=== PATIENT | female | born 1955 | race Caucasian/White ===

== ENCOUNTER 2023-01-18 02:02 | Emergency (ER) | payer MEDICARE, SELFPAY ==
[2023-01-18 02:07] VITALS: PULSE 89; RESP 16; TEMP 36.6; O2SAT 97
--- NOTE | 2023-01-18 02:35 | ED.ABDPAIN1 ---
HPI - Abdominal Pain General Chief Complaint: Abdominal Pain Stated Complaint: ABD BACK PAIN Time Seen by Provider: 01/18/23 02:35 Source: patient Mode of arrival: walk-in History of Present Illness HPI narrative: This 67-year-old female presents for evaluation of lower abdominal pain, urinary frequency with the sensation that she is not emptying her bladder, mild nausea and low back pain greatest on the left. She states she has not been feeling great for the past 2 days but her symptoms of lower abdominal pain urinary frequency and the sensation that she is not emptying her bladder started earlier today. She has also noticed some blood in her urine. She has not had a fever. She has not had any vomiting or diarrhea. She states she has a history of urinary tract infections and kidney stones. She also states that she is supposed to have a cardiac catheterization at [facility] in [place] in 2 weeks and if she has an infection needs to get it under control by then. She is not having any chest pain or shortness of breath today. She denies any dizziness diaphoresis or syncope. She states she does have a urologist that she sees but cannot recall the name of the urologist. Related Data Home Medications Medication Instructions Recorded Confirmed citalopram 20 mg tablet mg 01/18/23 isosorbide mononitrate 30 mg mg PO 01/18/23 tablet,extended release 24 hr lisinopril 40 mg tablet mg 01/18/23 omeprazole 40 mg capsule,delayed mg 01/18/23 release rosuvastatin 20 mg tablet mg 01/18/23 Allergies Allergy/AdvReac Type Severity Reaction Status Date / Time No Known Drug Allergies Allergy Verified 01/18/23 02:18 Review of Systems ROS Status of ROS 10 or more systems reviewed and unremarkable except as noted in history and below [facility] Social History Smoking status: Current every day smoker Exam Narrative Exam Narrative: Nurses note and vital signs reviewed and patient is not hypoxic. General: The patient appears well and in no apparent distress. Patient is resting comfortably on cart Rubbing her lower abdomen Skin: Warm, dry, no pallor noted. There is no rash noted. Head: Normocephalic, atraumatic Eye: Normal conjunctiva, no drainage, EOMI. PERRL Ears, Nose, Mouth, and Throat: oral mucosa is moist. Cardiovascular: Regular Rate and Rhythm Respiratory: Patient is in no distress, no accessory muscle use, lungs are clear to auscultation, no wheezing, rales or rhonchi Back: No midline bony vertebral tenderness or step-off, no CVA tenderness appreciated GI: Normal bowel sounds, Abdomen is softly distended and tender over the urinary bladder. There is no rebound guarding rigidity. There is no tenderness at McBurney's point. There is no pulsatile masses. Femoral pulses are brisk and equal bilaterally Musculoskeletal: The patient has no evidence of calf tenderness, no pitting edema, symmetrical pulses noted bilaterally Neurological: A&O x4, normal speech Psychiatric: Cooperative Constitutional Vital Signs, click to edit/add: Last Vital Signs Temp 98 F 01/18/23 02:07 Pulse 89 01/18/23 02:07 Resp 16 01/18/23 02:07 Pulse Ox 97 01/18/23 02:07 O2 Del Method Room Air 01/18/23 02:07 Course Vital Signs Vital signs: Vital Signs Temperature 98 F 01/18/23 02:07 Pulse Rate 89 01/18/23 02:07 Respiratory Rate 16 01/18/23 02:07 Pulse Oximetry 97 01/18/23 02:07 Oxygen Delivery Method Room Air 01/18/23 02:07 Temperature 98 F 01/18/23 02:07 Pulse Rate 89 01/18/23 02:07 Respiratory Rate 16 01/18/23 02:07 Pulse Oximetry 97 01/18/23 02:07 Oxygen Delivery Method Room Air 01/18/23 02:07 MDM - Abdominal Pain MDM Narrative Medical decision making narrative: This 67-year-old female with a history of urinary tract infections and kidney stones presents for evaluation of lower abdominal discomfort with urinary frequency and hematuria. She also has some low back pain. She denies any fever. She states she has not been feeling well for the past several days. She is scheduled to have a cardiac catheterization in 2 weeks and if she has an infection wants to get it treated so she can undergo her catheterization procedure. She denied any vomiting or diarrhea but states she was somewhat nauseated. She also complained of a mild headache. She had no chest pain or shortness of breath. An IV was placed and she was given IV Toradol Zofran and IV fluids. Routine labs were reviewed including urinalysis. Her urinalysis is positive for leukocyte esterase and moderate blood but otherwise normal. His mild elevation in her white count 11.3. She has normal hemoglobin. Electrolytes are normal Exception of a mild elevation in her glucose at 179. Lipase and lactic acid are normal. CT scan of the abdomen and pelvis shows multiple stones in her kidneys which may explain some degree of hematuria. There is no sign of hydronephrosis or ureteral nephrosis. She does have atherosclerosis of her aorta, hiatal hernia and other nonspecific changes as well as some bladder wall thickening concerning for cystitis. This is keeping with her symptoms of urinary frequency urgency and hematuria as well as leukocyte esterase in her urine prompted me to treat her for urinary tract infection. I gave her a dose of IV Rocephin and she will be discharged home with prescription for Keflex. She is otherwise feeling better after being treated in the emergency department and hemodynamically stable for discharge. Lab Data Labs: Lab Results 01/18/23 Range/Units 02:30 WBC 11.3 H (4.0-11.0) 10^3/uL RBC 4.38 (4.20-5.40) 10^6/uL Hgb 13.4 (12.0-16.0) g/dL Hct 39.5 (36.0-48.0) % MCV 90.2 (81.0-99.0) fL MCH 30.6 (26.7-34.0) pg MCHC 33.9 (29.9-35.2) g/dL RDW 12.1 (11.0-15.0) % Plt Count 268 (150-450) 10^3/uL MPV 9.2 L (9.5-13.5) fL Neut % (Auto) 61.6 (43.0-75.0) % Lymph % (Auto) 29.6 (20.5-60.0) % [place] % (Auto) 5.1 (1.7-12.0) % Eos % (Auto) 2.7 (0.9-7.0) % Baso % (Auto) 0.6 (0.2-2.0) % Neut # (Auto) 7.0 H (1.4-6.5) 10^3/uL Lymph # (Auto) 3.3 (1.2-3.8) 10^3/uL [place] # (Auto) 0.6 (0.3-0.8) 10^3/uL Eos # (Auto) 0.3 (0.0-0.7) 10^3/uL Baso # (Auto) 0.1 (0.0-0.1) 10^3/uL Abs Immat Gran (auto) 0.04 H (0.00-0.03) 10^3/uL Imm/Tot Granulo (auto) 0.4 (0.0-0.5) % Sodium 138 (136-145) mmol/L Potassium 3.4 L (3.5-5.1) mmol/L Chloride 102 (98-107) mmol/L Carbon Dioxide 27.2 (21.0-32.0) mmol/L Anion Gap 12.2 BUN 10.0 (7.0-18.0) mg/dL Creatinine 0.88 (0.55-1.02) mg/dL Est GFR ( Amer) >60 (>=60) Est GFR (Non-Af Amer) >60 (>=60) BUN/Creatinine Ratio 11.4 Glucose 179 H (74-106) mg/dL Lactate 2.0 (0.4-2.0) mmol/L Calcium 9.1 (8.5-10.1) mg/dL Total Bilirubin 0.3 (0.2-1.0) mg/dL AST 12 L (15-37) U/L ALT 12 L (14-59) U/L Alkaline Phosphatase 71 (46-116) U/L Total Protein 7.6 (6.4-8.2) g/dL Albumin 4.3 (3.4-5.0) g/dL Globulin 3.3 g/dL Albumin/Globulin Ratio 1.3 Lipase 134.0 (73.0-393.0) U/L Urine Color Lt. yellow (YELLOW) Urine Clarity Clear (CLEAR) Urine pH 6.0 (5.0-9.0) Ur Specific [place] 1.015 (1.005-1.025) Urine Protein Negative (NEG/TRACE) mg/dL Urine Glucose (UA) Negative (NEGATIVE) mg/dL Urine Ketones Negative (NEGATIVE) mg/dL Urine Occult Blood Moderate A (NEGATIVE) Urine Nitrite Negative (NEGATIVE) Urine Bilirubin Negative (NEGATIVE) Urine Urobilinogen 0.2 (0.2-1.0) EU/dL Ur Leukocyte Esterase Small A (NEGATIVE) Urine RBC 0-2 (0-2) #/HPF Urine WBC 0-2 A (NONE SEEN) #/HPF Ur Squamous Epith Cells Rare (NONE/RARE) #/LPF Urine Crystals None seen (None Seen) #/HPF Urine Bacteria None seen (NONE SEEN) #/HPF Urine Casts None seen (NONE SEEN) #/LPF Urine Mucus None seen (NONE SEEN) Ur Culture Indicated? No Discharge Plan Discharge Chief Complaint: Abdominal Pain Clinical Impression: Acute UTI, Bilateral kidney stones Time of Disposition Decision: 04:57 Condition: Good Prescriptions / Home Meds: No Action isosorbide mononitrate 30 mg tablet extended release 24 hr PO omeprazole 40 mg capsule,delayed release(DR/EC) citalopram 20 mg tablet lisinopril 40 mg tablet rosuvastatin 20 mg tablet Instructions: Kidney Stones (ED), Urinary Tract Infection in Women (ED) Stand Alone Forms: Portal Instructions Referrals: Physician,Non-Staff, MD [Primary Care Provider] - 1 week
--- NOTE | 2023-01-18 02:44 | CT_ITS ---
The [address] [address] Patient Name: SLY COY MRN: [id number] date: 1955 Sex: F Assigned Patient Location: ER Current Patient Location: ER Accession/Order Number: [id number] Exam Date: 01/18/2023 03:38 Report Date: 01/18/2023 04:33 At the request of: SLICK MARKER Procedure: CT abdomen pelvis w con CT abdomen and pelvis with contrast CLINICAL: kidney stone lower abdominal pain radiating into back, urinary urgency, retention, and burning with urination. COMPARISON: None. TECHNIQUE: Computed tomography of the abdomen and pelvis was performed following the uneventful administration of 100 cc Omnipaque 300 intravenous contrast. Dose reduction: mA and/or kV are adjusted by automated exposure control software based on patient size. FINDINGS: Limited imaging of lower chest demonstrates mild bibasilar atelectasis. There is a 5.4 cm hiatal hernia. Small amount of fluid within the stomach. Small bowel loops are normal caliber, few are fluid-filled. There is a moderate amount of colonic gas and small amount of stool in the colon. Few colonic diverticula noted. No acute diverticulitis or localized area of bowel inflammation. There is a normal appendix. Liver size and surface morphology are normal. The most superior margin of the liver dome excluded from view. No discrete liver lesion, with small area of focal fat along the falciform ligament. The gallbladder is contracted, normal in appearance. No biliary ductal dilatation. Normal pancreas and spleen. Adrenal glands are normal. Kidneys enhance symmetrically without perinephric stranding or hydronephrosis. There are small renal cysts bilaterally. A nonobstructing left upper pole renal stone measures 8 mm, and largest stone at the left kidney interpolar region measures 9 mm, and smaller stone at the lower pole at 5 mm. A nonobstructing stone at the lower pole right kidney is 7 mm. Bladder is moderately distended, minimal stranding along the bladder margin. No bladder stone or gas in the bladder lumen. Uterus surgically absent. No adnexal abnormality. There is severe atherosclerosis of the abdominal aorta and branch vessels. No abdominal aortic aneurysm. There are pelvic phleboliths. Hepatic veins and portal veins are patent. No abdominal pelvic lymphadenopathy. No free fluid, mesenteric inflation, abscess, or free air. There is grade 1 anterolisthesis of L5 on S1 due to bilateral L5 pars defects. Minimal endplate degenerative spurring in the visualized spine. There is a miniscule fat-containing umbilical hernia. CT/CT abdomen pelvis w con IMPRESSION: 1. Nonobstructing bilateral renal stones measuring up to 9 mm. Negative for hydronephrosis or perinephric stranding. Incidental renal cysts bilaterally. No suspicious renal lesion. 2. Minimal stranding along the anterior bladder margin that may be from cystitis. Correlate with urinalysis. No gas or stone in the bladder lumen. 3. Normal appendix, [id number] size hiatal hernia, and a few colonic diverticula. Negative for bowel obstruction or focal bowel inflammation. 4. Hysterectomy, severe abdominal aortic and branch vessel atherosclerosis, bilateral L5 pars defects with grade 1 anterolisthesis of L5 on S1, and additional incidental findings as described. Electronically authenticated by: RICHARD BALBUENA Date: 01/18/2023 04:33
[2023-01-18 02:54] LABS: Basophils Absolute Auto 0.1 10^3/uL (0.0-0.1); Basophils Percent Auto 0.6 % (0.2-2.0); Eosinophils Absolute Auto 0.3 10^3/uL (0.0-0.7); Eosinophils Percent Auto 2.7 % (0.9-7.0); Hematocrit 39.5 % (36.0-48.0); Hemoglobin 13.4 g/dL (12.0-16.0); Immature Granulocytes Abs Auto 0.04 10^3/uL (0.00-0.03); Immature Granulocytes Pct Auto 0.4 % (0.0-0.5); Lymphocytes Absolute Auto 3.3 10^3/uL (1.2-3.8); Lymphocytes Percent Auto 29.6 % (20.5-60.0); Mean Corpuscular HGB Conc 33.9 g/dL (29.9-35.2); Mean Corpuscular Hemoglobin 30.6 pg (26.7-34.0); Mean Corpuscular Volume 90.2 fL (81.0-99.0); Mean Platelet Volume 9.2 fL (9.5-13.5); Monocytes Absolute Auto 0.6 10^3/uL (0.3-0.8); Monocytes Percent Auto 5.1 % (1.7-12.0); Neutrophils Percent Auto 61.6 % (43.0-75.0); Platelet Count 268 10^3/uL (150-450); Red Blood Count 4.38 10^6/uL (4.20-5.40); Red Cell Distribution Width 12.1 % (11.0-15.0); White Blood Count 11.3 10^3/uL (4.0-11.0)
[2023-01-18 02:55] LABS: Bilirubin Urine NEGATIVE (NEGATIVE); Blood Urine MODERATE (NEGATIVE); Clarity Urine CLEAR (CLEAR); Color Urine LT. YELLOW (YELLOW); Glucose Urine UA NEGATIVE (NEGATIVE); Ketones Urine NEGATIVE (NEGATIVE); Leukocyte Esterase Urine SMALL (NEGATIVE); Nitrite Urine NEGATIVE (NEGATIVE); Protein Urine NEGATIVE (NEG/TRACE); Specific Gravity Urine 1.015 (1.005-1.025); Urobilinogen Urine 0.2 EU/dL (0.2-1.0)
[2023-01-18 02:56] LABS: Urine Microscopic Indicated YES
[2023-01-18 03:00] LABS: Alanine Aminotransferase 12 U/L (14-59); Albumin Globulin Ratio 1.3; Albumin Level 4.3 g/dL (3.4-5.0); Alkaline Phosphatase 71 U/L (46-116); Anion Gap 12.2; Aspartate Amino Transferase 12 U/L (15-37); BUN Creatinine Ratio 11.4; Bilirubin Total 0.3 mg/dL (0.2-1.0); Calcium 9.1 mg/dL (8.5-10.1); Carbon Dioxide 27.2 mmol/L (21.0-32.0); Chloride 102 mmol/L (98-107); Estimated GFR (African America >60 (>=60); Estimated GFR (Non-African Ame >60 (>=60); Globulin 3.3 g/dL; Glucose 179 mg/dL (74-106); Potassium 3.4 mmol/L (3.5-5.1); Sodium 138 mmol/L (136-145); Total Protein 7.6 g/dL (6.4-8.2)
[2023-01-18 03:02] LABS: Bacteria Urine NONE SEEN #/HPF (NONE SEEN); Cast Seen? NONE SEEN #/LPF (NONE SEEN); Crystals Seen? None Seen #/HPF (None Seen); Mucus Urine NONE SEEN (NONE SEEN); RBC Urine 0-2 #/HPF (0-2); Squamous Epithelial Cell Urine RARE #/LPF (NONE/RARE); Urine Culture Indicated NO; WBC Urine 0-2 #/HPF (NONE SEEN)
[2023-01-18] MEDS: KETOROLAC TROMETHAMINE 30 MG/ML VIAL 15 MG IVP (03:11)
[2023-01-18] MEDS: ONDANSETRON PF 4 MG/2 ML VIAL IV (03:11)
[2023-01-18] MEDS: 0.9 % SODIUM CHLORIDE 1,000 ML 100 ML IV (03:11)
[2023-01-18] MEDS: CEFTRIAXONE 1,000 MG in 0.9 % SODIUM CHLORIDE 50 ML 50 MG IV (04:57)
== END 2023-01-18 05:38 | disposition home or self-care (01) ==
PROVIDERS: Emergency Provider Emergency Medicine
DX: N39.0 Urinary tract infection, site not specified (principal); N20.0 Calculus of kidney; Z87.440 Personal history of urinary (tract) infections; Z87.442 Personal history of urinary calculi; F17.210 Nicotine dependence, cigarettes, uncomplicated; Z90.710 Acquired absence of both cervix and uterus
CPT/HCPCS: 36415; 74177; 80053; 81003; 81015; 83605; 83690; 85025; 96365; 96375; 99285; Q9967

== ENCOUNTER 2023-01-27 15:20 | Outpatient (OUT) | payer MEDICARE, SELFPAY ==
[2023-01-27 15:56] LABS: Basophils Absolute Auto 0.1 10^3/uL (0.0-0.1); Eosinophils Absolute Auto 0.3 10^3/uL (0.0-0.7); Eosinophils Percent Auto 2.6 % (0.9-7.0); Hematocrit 38.9 % (36.0-48.0); Hemoglobin 12.5 g/dL (12.0-16.0); Immature Granulocytes Abs Auto 0.04 10^3/uL (0.00-0.03); Immature Granulocytes Pct Auto 0.4 % (0.0-0.5); Lymphocytes Absolute Auto 3.4 10^3/uL (1.2-3.8); Lymphocytes Percent Auto 33.9 % (20.5-60.0); Mean Corpuscular HGB Conc 32.1 g/dL (29.9-35.2); Mean Corpuscular Hemoglobin 29.9 pg (26.7-34.0); Mean Corpuscular Volume 93.1 fL (81.0-99.0); Mean Platelet Volume 9.1 fL (9.5-13.5); Monocytes Absolute Auto 0.9 10^3/uL (0.3-0.8); Neutrophils Absolute Auto 5.3 10^3/uL (1.4-6.5); Neutrophils Percent Auto 53.1 % (43.0-75.0); Platelet Count 308 10^3/uL (150-450); Red Blood Count 4.18 10^6/uL (4.20-5.40); Red Cell Distribution Width 12.6 % (11.0-15.0); White Blood Count 9.9 10^3/uL (4.0-11.0)
[2023-01-27 16:14] LABS: Alanine Aminotransferase 19 U/L (14-59); Albumin Level 4.2 g/dL (3.4-5.0); Alkaline Phosphatase 59 U/L (46-116); Anion Gap 13.1; Aspartate Amino Transferase 13 U/L (15-37); BUN Creatinine Ratio 19.4; Bilirubin Total 0.6 mg/dL (0.2-1.0); Calcium 9.1 mg/dL (8.5-10.1); Carbon Dioxide 27.8 mmol/L (21.0-32.0); Chloride 103 mmol/L (98-107); Chol HDL Ratio 4.6; Cholesterol 215 mg/dL (<=200); Estimated GFR (African America >60 (>=60); Estimated GFR (Non-African Ame >60 (>=60); Glucose 97 mg/dL (74-106); HDL Cholesterol 47 mg/dL (40-60); Potassium 3.9 mmol/L (3.5-5.1); Sodium 140 mmol/L (136-145); Thyroid Stimulating Hormone 3.768 uIU/mL (0.358-3.740); Total Protein 8.2 g/dL (6.4-8.2); Triglycerides 173 mg/dL (<=150); VLDL CHOLESTEROL 34.6 mg/dL
[2023-01-27 16:38] LABS: Free T4 0.82 ng/dL (0.76-1.46)
== END 2023-01-27 15:21 | disposition home or self-care (01) ==
LOC: LAB 15:21
DX: E78.5 Hyperlipidemia, unspecified (principal); I10 Essential (primary) hypertension
CPT/HCPCS: 36415; 80053; 80061; 84439; 84443; 85025

== ENCOUNTER 2023-02-02 21:10 | Emergency (ER) | payer MEDICARE, SELFPAY ==
[2023-02-02 21:14] VITALS: BP 150/94; PULSE 88; RESP 16; TEMP 36.9; O2SAT 98; BMI 25.0
--- NOTE | 2023-02-02 21:24 | PC.NURSE ---
pt presents to ED because patient states she had a heart cath done on 01-23-2023, pt is currently taking plavix and aspirin daily. pt states for last 2 days has had swelling and pain to the back of right knee and calf. pt states she can feel a lump on the back of her leg. pt unsure if she pulled a muscle or has a blood clot.
--- NOTE | 2023-02-02 21:33 | ED.GENADUL1 ---
HPI - General Adult General Chief complaint: Extremity Injury, Lower Stated complaint: stent on 01-23-23 leg w/ lump Time Seen by Provider: 02/02/23 21:20 Source: patient Mode of arrival: walk-in History of Present Illness HPI narrative: This [age]-year-old female presents for evaluation of left posterior lower leg pain. The patient had a cardiac catheter and coronary stent placed on January 23. She is on Plavix and aspirin. She has a lot of bruising from the catheterization site on the right inguinal area and posterior leg. This bruising is better she states. She has been limping somewhat due to the discomfort in the right leg and yesterday felt some discomfort in the back of her left calf. She states she feels a lump in the back of her leg. The area that she feels the lump is the lower edge of the gastrocnemius muscle. There is no pain with ambulation. She has no chest pain or shortness of breath. She states that she thinks that she is compensating with the left leg because she has to walk up stairs and the right leg has been uncomfortable due to the bruising related to the cardiac catheter. She denies any numbness or tingling. She states she is going to [place] on a girls vacation next Monday and wants to make sure that everything is okay. Onset (ago): day(s) (1) Related Data Home Medications Medication Instructions Recorded Confirmed citalopram 20 mg tablet mg 01/18/23 isosorbide mononitrate 30 mg mg PO 01/18/23 tablet,extended release 24 hr lisinopril 40 mg tablet mg 01/18/23 omeprazole 40 mg capsule,delayed mg 01/18/23 release rosuvastatin 20 mg tablet mg 01/18/23 aspirin 81 mg tablet,delayed 81 mg PO DAILY 02/02/23 02/02/23 release (Adult Low Dose Aspirin) clopidogrel 75 mg tablet 75 mg PO DAILY 02/02/23 02/02/23 Allergies Allergy/AdvReac Type Severity Reaction Status Date / Time No Known Drug Allergies Allergy Verified 01/18/23 02:18 Review of Systems ROS Status of ROS 10 or more systems reviewed and unremarkable except as noted in history and below PFSH PFS Social History Smoking status: Current every day smoker Exam Narrative Exam Narrative: Nurses note and vital signs reviewed and patient is not hypoxic. Blood pressure is noted to be elevated at 150/94 General: Thin adult female, no distress noted Patient is resting comfortably on cart And moves easily about the cart to ambulate Skin: Warm, dry, no pallor noted. There is no rash noted. Head: Normocephalic, atraumatic Eye: Normal conjunctiva, no drainage, EOMI. PERRL Ears, Nose, Mouth, and Throat: oral mucosa is moist. Cardiovascular: Regular Rate and Rhythm S1 and S2, no murmurs rubs or gallops Respiratory: Patient is in no distress, no accessory muscle use, lungs are clear to auscultation, no wheezing, rales or rhonchi Back: non-tender, no CVA tenderness bilaterally to percussion. GI: Normal bowel sounds, no tenderness to palpation, no masses appreciated. No rebound, guarding, or rigidity noted. Musculoskeletal: Calf sizes are equal. There is no notable abnormality in the posterior aspect of the left lower leg, the area that the patient is concerned about appears to be the lower edge of the gastrocnemius muscle, negative Homans sign, dorsalis pedis and posterior tibialis pulses are brisk and equal bilaterally, there is a large amount of ecchymosis on the posterior aspect of the right lower leg and right inguinal area status post cardiac catheterization Neurological: A&O x4, normal speech Psychiatric: Cooperative Constitutional Vital Signs, click to edit/add: Last Vital Signs Temp 98.4 F 02/02/23 21:14 Pulse 88 02/02/23 21:14 Resp 16 02/02/23 21:14 BP 150/94 H 02/02/23 21:14 Pulse Ox 98 02/02/23 21:14 O2 Del Method Room Air 02/02/23 21:14 Course Vital Signs Vital signs: Vital Signs Temperature 98.4 F 02/02/23 21:14 Pulse Rate 88 02/02/23 21:14 Respiratory Rate 16 02/02/23 21:14 Blood Pressure 150/94 H 02/02/23 21:14 Pulse Oximetry 98 02/02/23 21:14 Oxygen Delivery Method Room Air 02/02/23 21:14 Temperature 98.4 F 02/02/23 21:14 Pulse Rate 88 02/02/23 21:14 Respiratory Rate 16 02/02/23 21:14 Blood Pressure 150/94 H 02/02/23 21:14 Pulse Oximetry 98 02/02/23 21:14 Oxygen Delivery Method Room Air 02/02/23 21:14 Medical Decision Making MDM Narrative Medical decision making narrative: This 67-year-old female who is on aspirin and Plavix and had a cardiac catheterization on January 23 and had one coronary stent placed at [facility] presents for evaluation of swelling in the back of her left leg that was noticed yesterday. She is compensating when she walks because she is having pain in the right leg due to the bruising In the right inguinal area and posterior aspect of the right leg associated with cardiac catheter. The area that she is concerned about the lower border of the gastrocnemius muscle. Her calf sizes are equal. She has a negative Homans sign. she was medicated with Tylenol emergency department. I did explain to her that we do not have ultrasound available at this time and she is set up for an ultrasound of the left lower extremity tomorrow at 11 AM. She is not experiencing any chest pain or shortness of breath and is on aspirin and Plavix. Clinically this is not consistent with a deep vein thrombosis but she will be further evaluated with a duplex ultrasound tomorrow. She is in agreement with this plan. Discharge Plan Discharge Chief Complaint: Extremity Injury, Lower Clinical Impression: Leg pain, left Time of Disposition Decision: 21:43 Condition: Good Prescriptions / Home Meds: No Action clopidogrel 75 mg tablet 75 mg PO DAILY aspirin [Adult Low Dose Aspirin] 81 mg tablet,delayed release (DR/EC) 81 mg PO DAILY isosorbide mononitrate 30 mg tablet extended release 24 hr PO omeprazole 40 mg capsule,delayed release(DR/EC) citalopram 20 mg tablet lisinopril 40 mg tablet rosuvastatin 20 mg tablet Instructions: Leg Pain (ED) Additional Instructions: Follow up tomorrow for left lower extremity ultrasound. Please come to registration around 10;30 am for your ultrasound at 11am Continue your current medications Stand Alone Forms: Portal Instructions Referrals: Physician,Non-Staff, MD [Primary Care Provider] - 1 week
[2023-02-02] MEDS: ACETAMINOPHEN 325 MG TABLET 650 MG PO (21:56)
== END 2023-02-02 21:59 | disposition home or self-care (01) ==
PROVIDERS: Emergency Provider Emergency Medicine
DX: M79.605 Pain in left leg (principal); Z95.5 Presence of coronary angioplasty implant and graft; Z79.02 Long term (current) use of antithrombotics/antiplatelets; Z79.899 Other long term (current) drug therapy; Z79.82 Long term (current) use of aspirin; F17.210 Nicotine dependence, cigarettes, uncomplicated
CPT/HCPCS: 99283

== ENCOUNTER 2023-02-03 10:38 | Outpatient (OUT) | payer MEDICARE, SELFPAY ==
--- NOTE | 2023-02-03 10:47 | US_ITS ---
The [place] [id number] Patient Name: SLY COY MRN: [id number] date: 1955 Sex: F Assigned Patient Location: [facility] Current Patient Location: [facility] Accession/Order Number: [id number] Exam Date: 02/03/2023 10:50 Report Date: 02/03/2023 12:31 At the request of: SLICK MARKER Procedure: US venous doppler LE LT EXAMINATION: US venous doppler LE LT HISTORY: Left Leg Pain COMPARISON: No relevant comparison available. FINDINGS: REGION: Left lower extremity THROMBI: None. COMPRESSIBILITY: Normal compressibility. FLOW: Normal waveform and antegrade flow between 5 and 20 cm/s. OTHER: None. US/US venous doppler LE LT IMPRESSION: 1. No deep vein thrombus within the left lower extremity. Electronically authenticated by: KATHERINE LITTLE Date: 02/03/2023 12:31
== END 2023-02-03 10:39 | disposition home or self-care (01) ==
LOC: RAD 10:41
PROVIDERS: Visit Provider Emergency Medicine
DX: M79.604 Pain in right leg (principal)
CPT/HCPCS: 93971

== ENCOUNTER 2023-03-18 11:10 | Outpatient (OUT) | payer MEDICARE, SELFPAY ==
--- NOTE | 2023-03-18 | XR_ITS ---
The [address] [address] Patient Name: SLY COY MRN: [id number] date: 1955 Sex: F Assigned Patient Location: RAD Current Patient Location: [facility] Accession/Order Number: [id number] Exam Date: 03/18/2023 11:20 Report Date: 03/18/2023 16:26 At the request of: LIYAH DENNY Procedure: XR abdomen 1V EXAMINATION: XR abdomen 1V, [id number] HISTORY: n20.0 Kidney stone COMPARISON: CT abdomen/pelvis 01/18/2023 FINDINGS/IMPRESSION: The 3 clusters of calcification calcification projecting over the left kidney and the single cluster of calcifications projecting over the right kidney are similar in size and location compared with 01/18/2023. No new calcification projecting over either kidney or along the expected courses of the ureters. Nonobstructive bowel gas pattern. Stool burden is average. Electronically authenticated by: MAYELA SELBY Date: 03/18/2023 16:26
== END 2023-03-18 11:11 | disposition home or self-care (01) ==
LOC: RAD 11:11
PROVIDERS: Visit Provider Urology
DX: N20.0 Calculus of kidney (principal)
CPT/HCPCS: 74018

== ENCOUNTER 2023-03-27 12:57 | Emergency (ER) | payer MEDICARE, SELFPAY ==
[2023-03-27 13:05] VITALS: BP 112/70; PULSE 65; RESP 18; TEMP 36.6; O2SAT 99
--- NOTE | 2023-03-27 14:00 | ED_ITS ---
HPI - Female Genitourinary General Chief complaint: Urogenital-Female Stated complaint: UTI Time Seen by Provider: 03/27/23 13:53 Source: patient Mode of arrival: walk-in Limitations: no limitations History of Present Illness HPI Narrative: 67-year-old female presents for frequency of urination and blood in her urine. She also has low abdominal pain and low back pain. She does not seem to have flank pain. She has a history of kidney stones. No fever or vomiting and the pain is moderate and intermittent. Related Data Home Medications Medication Instructions Recorded Confirmed citalopram 20 mg tablet mg 01/18/23 isosorbide mononitrate 30 mg mg PO 01/18/23 tablet,extended release 24 hr lisinopril 40 mg tablet mg 01/18/23 omeprazole 40 mg capsule,delayed mg 01/18/23 release rosuvastatin 20 mg tablet mg 01/18/23 aspirin 81 mg tablet,delayed 81 mg PO DAILY 02/02/23 02/02/23 release (Adult Low Dose Aspirin) clopidogrel 75 mg tablet 75 mg PO DAILY 02/02/23 02/02/23 Previous Rx's Medication Instructions Recorded cephalexin 500 mg capsule 500 mg PO TID 7 days #21 caps 03/27/23 Allergies Allergy/AdvReac Type Severity Reaction Status Date / Time No Known Drug Allergies Allergy Verified 01/18/23 02:18 Review of Systems ROS Narrative A ten point review of systems is negative except as noted above. [facility] Medical History (Updated 03/27/23 @ 16:09 by Russell Gambino MD) Surgical History (Updated 03/27/23 @ 13:52 by Ranjit Jade) Social History Smoking status: Current every day smoker Exam Narrative Exam Narrative: Nurses note and vital signs reviewed and patient is not hypoxic. General: The patient appears well and in no apparent distress. Patient is resting comfortably on cart. Skin: Warm, dry, no pallor noted. There is no rash noted. Head: Normocephalic, atraumatic Eye: Normal conjunctiva, no drainage Ears, Nose, Mouth, and Throat: oral mucosa is moist. Nares patent. Cardiovascular: Regular Rate and Rhythm Respiratory: Patient is in no distress, no accessory muscle use, lungs are clear to auscultation, no wheezing, rales or rhonchi Back: non-tender, no CVA tenderness bilaterally to percussion. GI: soft. Nondistended. Bilateral lower abdominal tenderness on palpation. Musculoskeletal: The patient has no evidence of calf tenderness, no pitting edema, symmetrical pulses noted bilaterally Neurological: A&O, normal speech Psychiatric: Cooperative Constitutional Vital Signs, click to edit/add: Last Vital Signs Temp 97.8 F 03/27/23 13:05 Pulse 65 03/27/23 13:05 Resp 18 03/27/23 13:05 BP 112/70 03/27/23 13:05 Pulse Ox 99 03/27/23 13:05 O2 Del Method Room Air 03/27/23 13:05 Course Vital Signs Vital signs: Vital Signs Temperature 97.8 F 03/27/23 13:05 Pulse Rate 65 03/27/23 13:05 Respiratory Rate 18 03/27/23 13:05 Blood Pressure 112/70 03/27/23 13:05 Pulse Oximetry 99 03/27/23 13:05 Oxygen Delivery Method Room Air 03/27/23 13:05 Temperature 97.8 F 03/27/23 13:05 Pulse Rate 65 03/27/23 13:05 Respiratory Rate 18 03/27/23 13:05 Blood Pressure 112/70 03/27/23 13:05 Pulse Oximetry 99 03/27/23 13:05 Oxygen Delivery Method Room Air 03/27/23 13:05 MDM - Female Genitourinary MDM Narrative Medical decision making narrative: CT shows small intrarenal stones but no obstruction or stones that are in the ureter. Urinary tract infection identified and she's prescribed Keflex. Treatment diagnosis and follow-up were discussed with the patient. Differential Diagnosis Differential diagnosis: Likely urinary tract infection, cystitis and other (kidney stone) Lab Data Attestation: I reviewed the patient's lab results. Labs: Lab Results 03/27/23 03/27/23 Range/Units 13:54 14:16 WBC 7.6 (4.0-11.0) 10^3/uL RBC 4.30 (4.20-5.40) 10^6/uL Hgb 12.9 (12.0-16.0) g/dL Hct 40.5 (36.0-48.0) % MCV 94.2 (81.0-99.0) fL MCH 30.0 (26.7-34.0) pg MCHC 31.9 (29.9-35.2) g/dL RDW 11.9 (11.0-15.0) % Plt Count 255 (150-450) 10^3/uL MPV 8.9 L (9.5-13.5) fL Neut % (Auto) 51.5 (43.0-75.0) % Lymph % (Auto) 35.7 (20.5-60.0) % [place] % (Auto) 7.5 (1.7-12.0) % Eos % (Auto) 4.0 (0.9-7.0) % Baso % (Auto) 1.2 (0.2-2.0) % Neut # (Auto) 3.9 (1.4-6.5) 10^3/uL Lymph # (Auto) 2.7 (1.2-3.8) 10^3/uL [place] # (Auto) 0.6 (0.3-0.8) 10^3/uL Eos # (Auto) 0.3 (0.0-0.7) 10^3/uL Baso # (Auto) 0.1 (0.0-0.1) 10^3/uL Abs Immat Gran (auto) 0.01 (0.00-0.03) 10^3/uL Imm/Tot Granulo (auto) 0.1 (0.0-0.5) % Sodium 140 (136-145) mmol/L Potassium 4.5 (3.5-5.1) mmol/L Chloride 104 (98-107) mmol/L Carbon Dioxide 28.5 (21.0-32.0) mmol/L Anion Gap 12.0 BUN 11.0 (7.0-18.0) mg/dL Creatinine 0.66 (0.55-1.02) mg/dL Est GFR ( Amer) >60 (>=60) Est GFR (Non-Af Amer) >60 (>=60) BUN/Creatinine Ratio 16.7 Glucose 91 (74-106) mg/dL Calcium 8.9 (8.5-10.1) mg/dL Urine Color Dk. orange (YELLOW) Urine Clarity Clear (CLEAR) Urine pH 5.5 (5.0-9.0) Ur Specific [place] 1.025 (1.005-1.025) Urine Protein Trace (NEG/TRACE) mg/dL Urine Glucose (UA) Negative (NEGATIVE) mg/dL Urine Ketones Negative (NEGATIVE) mg/dL Urine Occult Blood Moderate A (NEGATIVE) Urine Nitrite Positive A (NEGATIVE) Urine Bilirubin Negative (NEGATIVE) Urine Urobilinogen 1.0 (0.2-1.0) EU/dL Ur Leukocyte Esterase Negative (NEGATIVE) Urine RBC 2-5 A (0-2) #/HPF Urine WBC None seen (NONE SEEN) #/HPF Ur Squamous Epith Cells Rare (NONE/RARE) #/LPF Urine Crystals None seen (None Seen) #/HPF Urine Bacteria Trace A (NONE SEEN) #/HPF Urine Casts None seen (NONE SEEN) #/LPF Urine Mucus None seen (NONE SEEN) Ur Culture Indicated? Yes Imaging Data CT scan - abdomen: Radiologist's impression: Procedure: CT abdomen pelvis wo con EXAM: CT abdomen pelvis wo con; [id number] REASON FOR EXAM: pain, rule out kidney stone TECHNIQUE: Helical CT images of the abdomen and pelvis were obtained without IV contrast. Multiplanar reformats were generated at the scanner. Dose reduction technique used: Automated exposure control and/or adjustment of the mA and/or kV according to patient size and/or use of iterative reconstruction technique. COMPARISON: CT abdomen/pelvis 01/18/2023. FINDINGS: Note: Compared with a contrast-enhanced CT exam, noncontrast images are relatively insensitive for detection of solid organ and vascular abnormalities. Visualized Chest: Medium-sized hiatal hernia containing approximately 25% of the stomach. Abdomen: Liver: Within normal limits. Gallbladder: No calcified gallstones. No acute inflammatory changes. Bile Ducts: No significant biliary ductal dilatation. Pancreas: No ductal dilatation or inflammatory changes. Spleen: No splenomegaly. Adrenals: No nodules. Kidneys: -No hydronephrosis. -Low-density cyst in the upper pole of the right kidney measuring 18 mm. -Single nonobstructing 6 mm stone in the right kidney. -There are 3 nonobstructing stones in the left kidney with the largest measuring up to 9 mm. -Exophytic cyst in the lower pole of the left kidney measuring 14 mm. Vascular: No aortic aneurysm. Lymph Nodes: No adenopathy. Abdominal Wall: No hernia or mass. Pelvis: No mass or adenopathy. Bowel/Peritoneal Cavity/Mesentery: -Minimal colonic diverticulosis without evidence of acute diverticulitis. -No bowel obstruction or significant ileus. -No acute inflammatory changes. -No free air or free fluid. Musculoskeletal: No acute fracture or suspicious osseous lesion. Bilateral L5 pars defects resulting in grade 1 (0-25%) anterolisthesis of L5 on S1. IMPRESSION: 1. Bilateral nonobstructing kidney stones. No hydronephrosis. 2. Minimal colonic diverticulosis without evidence of acute diverticulitis. 3. Medium-sized hiatal hernia. 4. Bilateral L5 pars defects. Electronically authenticated by: MAYELA SELBY Date: 03/27/2023 15:41 Discharge Plan Discharge Chief Complaint: Urogenital-Female Clinical Impression: Acute UTI Patient Disposition: Home, Self-Care Time of Disposition Decision: 16:07 Condition: Good Mode of Transportation: Private Vehicle Prescriptions / Home Meds: New cephalexin 500 mg capsule 500 mg PO TID 7 Days Qty: 21 0RF No Action clopidogrel 75 mg tablet 75 mg PO DAILY aspirin [Adult Low Dose Aspirin] 81 mg tablet,delayed release (DR/EC) 81 mg PO DAILY isosorbide mononitrate 30 mg tablet extended release 24 hr PO omeprazole 40 mg capsule,delayed release(DR/EC) citalopram 20 mg tablet lisinopril 40 mg tablet rosuvastatin 20 mg tablet Instructions: Urinary Tract Infection in Women (ED) Stand Alone Forms: Portal Instructions Referrals: Physician,Non-Staff, MD [Primary Care Provider] - 1 week
[2023-03-27 14:10] LABS: Bilirubin Urine NEGATIVE (NEGATIVE); Blood Urine MODERATE (NEGATIVE); Clarity Urine CLEAR (CLEAR); Color Urine DK. ORANGE (YELLOW); Glucose Urine UA NEGATIVE (NEGATIVE); Ketones Urine NEGATIVE (NEGATIVE); Leukocyte Esterase Urine NEGATIVE (NEGATIVE); Nitrite Urine POSITIVE (NEGATIVE); Protein Urine TRACE mg/dL (NEG/TRACE); Specific Gravity Urine 1.025 (1.005-1.025); pH Urine 5.5 (5.0-9.0)
[2023-03-27 14:12] LABS: Urine Microscopic Indicated YES
[2023-03-27 14:18] LABS: Bacteria Urine TRACE #/HPF (NONE SEEN); Cast Seen? NONE SEEN #/LPF (NONE SEEN); Crystals Seen? None Seen #/HPF (None Seen); Mucus Urine NONE SEEN (NONE SEEN); Squamous Epithelial Cell Urine RARE #/LPF (NONE/RARE); Urine Culture Indicated YES; WBC Urine NONE SEEN #/HPF (NONE SEEN)
[2023-03-27 14:31] LABS: Basophils Absolute Auto 0.1 10^3/uL (0.0-0.1); Basophils Percent Auto 1.2 % (0.2-2.0); Eosinophils Absolute Auto 0.3 10^3/uL (0.0-0.7); Hematocrit 40.5 % (36.0-48.0); Hemoglobin 12.9 g/dL (12.0-16.0); Immature Granulocytes Abs Auto 0.01 10^3/uL (0.00-0.03); Immature Granulocytes Pct Auto 0.1 % (0.0-0.5); Lymphocytes Absolute Auto 2.7 10^3/uL (1.2-3.8); Lymphocytes Percent Auto 35.7 % (20.5-60.0); Mean Corpuscular HGB Conc 31.9 g/dL (29.9-35.2); Mean Corpuscular Volume 94.2 fL (81.0-99.0); Mean Platelet Volume 8.9 fL (9.5-13.5); Monocytes Absolute Auto 0.6 10^3/uL (0.3-0.8); Monocytes Percent Auto 7.5 % (1.7-12.0); Neutrophils Absolute Auto 3.9 10^3/uL (1.4-6.5); Neutrophils Percent Auto 51.5 % (43.0-75.0); Platelet Count 255 10^3/uL (150-450); Red Cell Distribution Width 11.9 % (11.0-15.0); White Blood Count 7.6 10^3/uL (4.0-11.0)
[2023-03-27 14:37] LABS: BUN Creatinine Ratio 16.7; Calcium 8.9 mg/dL (8.5-10.1); Carbon Dioxide 28.5 mmol/L (21.0-32.0); Chloride 104 mmol/L (98-107); Estimated GFR (African America >60 (>=60); Estimated GFR (Non-African Ame >60 (>=60); Glucose 91 mg/dL (74-106); Potassium 4.5 mmol/L (3.5-5.1); Sodium 140 mmol/L (136-145)
--- NOTE | 2023-03-27 14:54 | CT_ITS ---
[address] [address] Patient Name: SLY COY MRN: [id number] date: 1955 Sex: F Assigned Patient Location: ER Current Patient Location: Accession/Order Number: [id number] Exam Date: 03/27/2023 15:00 Report Date: 03/27/2023 15:41 At the request of: CARLO MCDONALD Procedure: CT abdomen pelvis wo con EXAM: CT abdomen pelvis wo con; [id number] REASON FOR EXAM: pain, rule out kidney stone TECHNIQUE: Helical CT images of the abdomen and pelvis were obtained without IV contrast. Multiplanar reformats were generated at the scanner. Dose reduction technique used: Automated exposure control and/or adjustment of the mA and/or kV according to patient size and/or use of iterative reconstruction technique. COMPARISON: CT abdomen/pelvis 01/18/2023. FINDINGS: Note: Compared with a contrast-enhanced CT exam, noncontrast images are relatively insensitive for detection of solid organ and vascular abnormalities. Visualized Chest: Medium-sized hiatal hernia containing approximately 25% of the stomach. Abdomen: Liver: Within normal limits. Gallbladder: No calcified gallstones. No acute inflammatory changes. Bile Ducts: No significant biliary ductal dilatation. Pancreas: No ductal dilatation or inflammatory changes. Spleen: No splenomegaly. Adrenals: No nodules. Kidneys: -No hydronephrosis. -Low-density cyst in the upper pole of the right kidney measuring 18 mm. -Single nonobstructing 6 mm stone in the right kidney. -There are 3 nonobstructing stones in the left kidney with the largest measuring up to 9 mm. -Exophytic cyst in the lower pole of the left kidney measuring 14 mm. Vascular: No aortic aneurysm. Lymph Nodes: No adenopathy. Abdominal Wall: No hernia or mass. Pelvis: No mass or adenopathy. Bowel/Peritoneal Cavity/Mesentery: -Minimal colonic diverticulosis without evidence of acute diverticulitis. -No bowel obstruction or significant ileus. -No acute inflammatory changes. -No free air or free fluid. Musculoskeletal: No acute fracture or suspicious osseous lesion. Bilateral L5 pars defects resulting in grade 1 (0-25%) anterolisthesis of L5 on S1. CT/CT abdomen pelvis wo con IMPRESSION: 1. Bilateral nonobstructing kidney stones. No hydronephrosis. 2. Minimal colonic diverticulosis without evidence of acute diverticulitis. 3. Medium-sized hiatal hernia. 4. Bilateral L5 pars defects. Electronically authenticated by: MAYELA SELBY Date: 03/27/2023 15:41
[2023-03-27 16:21] VITALS: BP 120/70; PULSE 60; RESP 18; O2SAT 99
== END 2023-03-27 16:23 | disposition home or self-care (01) ==
PROVIDERS: Emergency Provider Emergency Medicine
DX: N39.0 Urinary tract infection, site not specified (principal); Z87.442 Personal history of urinary calculi; Z79.899 Other long term (current) drug therapy; Z79.82 Long term (current) use of aspirin; F17.210 Nicotine dependence, cigarettes, uncomplicated
CPT/HCPCS: 36415; 74176; 80048; 81001; 85025; 87086; 99285

== ENCOUNTER 2023-04-11 15:00 | Outpatient (OUT) | payer MEDICARE, SELFPAY ==
--- NOTE | 2023-04-11 | XR_ITS ---
[place] [id number] Patient Name: SLY COY MRN: [id number] date: 1955 Sex: F Assigned Patient Location: [facility] Current Patient Location: [facility] Accession/Order Number: [id number] Exam Date: 04/11/2023 15:10 Report Date: 04/11/2023 18:55 At the request of: NADIRA SUBRAMANIAN Procedure: XR DEXA axial skeleton EXAM: XR DEXA axial skeleton HISTORY: Post-menopausal Z78.0 COMPARISON: None. TECHNIQUE: Routine DEXA scan lumbar spine and bilateral hips. FINDINGS: L1-L4: Bone mineral density 0.956 g/sq cm with a T score of -1.9 Left femoral neck: Bone mineral density 0.728 g/sq cm with a T score of -2.2 Left hip total: Bone mineral density 0.741 g/sq cm with a T score of -2.1 Right femoral neck: Bone mild density 0.705 g/sq cm with a T score of -2.4 Right hip total: Bone mineral density 0.774 g/sq cm with a T score of -1.9 XR/XR DEXA axial skeleton IMPRESSION: Osteopenia. Electronically authenticated by: ERIKA ANDUJAR Date: 04/11/2023 18:55
== END 2023-04-11 15:01 | disposition home or self-care (01) ==
LOC: RAD 15:01
DX: Z78.0 Asymptomatic menopausal state (principal); M85.80 Other specified disorders of bone density and structure, unspecified site
CPT/HCPCS: 77080

== ENCOUNTER 2023-05-17 14:35 | Outpatient (OUT) | payer MEDICARE, SELFPAY ==
--- NOTE | 2023-05-17 14:37 | XR_ITS ---
[address] [address] Patient Name: SLY COY MRN: [id number] date: 1955 Sex: F Assigned Patient Location: [facility] Current Patient Location: [facility] Accession/Order Number: [id number] Exam Date: 05/17/2023 15:40 Report Date: 05/17/2023 16:41 At the request of: LIYAH DENNY Procedure: XR chest 2V EXAM: CHEST 2 VIEWS HISTORY: Preop exam TECHNIQUE: PA and lateral views chest. COMPARISON: None. FINDINGS: The lungs are mildly hyperinflated and clear. There is no focal lung consolidation, pleural effusion or pneumothorax. Pulmonary vasculature is within normal limits. Atherosclerotic thoracic aorta with normal heart size. Coronary artery stent is seen. XR/XR chest 2V IMPRESSION: 1. No acute cardiopulmonary disease. Electronically authenticated by: RICHARD BALBUENA Date: 05/17/2023 16:41
--- NOTE | 2023-05-17 14:37 | ECG_ITS ---
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
[2023-05-17 15:44] LABS: Basophils Absolute Auto 0.1 10^3/uL (0.0-0.1); Eosinophils Absolute Auto 0.3 10^3/uL (0.0-0.7); Eosinophils Percent Auto 3.5 % (0.9-7.0); Hematocrit 39.3 % (36.0-48.0); Hemoglobin 12.9 g/dL (12.0-16.0); Immature Granulocytes Abs Auto 0.01 10^3/uL (0.00-0.03); Immature Granulocytes Pct Auto 0.1 % (0.0-0.5); Lymphocytes Absolute Auto 2.8 10^3/uL (1.2-3.8); Lymphocytes Percent Auto 36.9 % (20.5-60.0); Mean Corpuscular HGB Conc 32.8 g/dL (29.9-35.2); Mean Corpuscular Hemoglobin 30.3 pg (26.7-34.0); Mean Corpuscular Volume 92.3 fL (81.0-99.0); Monocytes Absolute Auto 0.6 10^3/uL (0.3-0.8); Monocytes Percent Auto 7.9 % (1.7-12.0); Neutrophils Absolute Auto 3.9 10^3/uL (1.4-6.5); Neutrophils Percent Auto 50.6 % (43.0-75.0); Platelet Count 268 10^3/uL (150-450); Red Blood Count 4.26 10^6/uL (4.20-5.40); Red Cell Distribution Width 12.1 % (11.0-15.0); White Blood Count 7.7 10^3/uL (4.0-11.0)
[2023-05-17 15:58] LABS: Anion Gap 12.2; BUN Creatinine Ratio 31.4; Calcium 8.9 mg/dL (8.5-10.1); Carbon Dioxide 28.8 mmol/L (21.0-32.0); Chloride 103 mmol/L (98-107); Estimated GFR (African America >60 (>=60); Estimated GFR (Non-African Ame >60 (>=60); Glucose 112 mg/dL (74-106); Sodium 140 mmol/L (136-145)
[2023-05-17 17:17] LABS: INR 0.96; Prothrombin Time 10.2 sec (9.0-11.6)
--- OUTSIDE RECORDS SUMMARY | 2023-06-27 15:50 | XMS_ITS | CCD ---
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 Name Role Phone Nadira Modi APRN, CNP Primary Care Provider JUVENAL HARRELL Referring Unavailable NADIRA MARTÍNEZ Primary Care Unavailable [facility] Primary Care Unava ilable MIKHAIL GRANT Consulting Unavailable MIKHAIL GRANT Admitting Unavailable MIKHAIL GRANT Attending Unavailable NADIRA MARTÍNEZ Admitting Unavailable NADIRA MARTÍNEZ Attending Unavailable [facility] Primary Care Unava ilable MARILYNN, NADIRA Consulting Unavailable Himanshu Borjas Unavailable Fernando Castellon Attending Unavailable Fernando Castellon Admitting Unavailable Nadira Martínez Primary Care Unavailable JAYA SIMON Admitting Unavailable JAYA SIMON Attending Unavailable JAYA SIMON Referring Unavailable NADIRA MARTÍNEZ Primary Care Unavailable NADIRA MARTÍNEZ Primary Care Physician Elizabeth Lott Attending Unavailable NADIRA MARTÍNEZ Referring Unavailable Elizabeth Lott Attending Unavailable Allergies Allergy Classification Reported Allergen(s) Allergy Type Date of Onset Reaction(s) Facility (1 source) No Known Medication Allergies; Translations: [No Known Medication Allergies] Propensity to adverse reactions (disorder) [facility] Repository Medications Current Medications Medication Drug Class(es) Dates Sig (Normalized) Sig (Original) ALPRAZolam (1 source) Benzodiazepine Start: 05-10-2023 alprazolam Oral, Refills(s) 0 Start Date: 05/10/23 Status: Ordered aspirin 81 mg oral capsule (1 source) Platelet Aggregation Inhibitor, Nonsteroidal Anti-inflammatory Drug Start: 05-10-2023 take 1 mg by mouth every twenty-four hours aspirin 81 mg oral capsule mg cap(s), Oral, q24hr, Refills(s) 0 Start Date: 05/10/23 Status: Ordered citalopram 20 mg oral tablet (3 sources) Serotonin Reuptake Inhibitor Start: 05-10-2023 take 1 mg by mouth once daily citalopram 20 mg Tab mg tab(s), Oral, Daily, Refills(s) 0 Start Date: 05/10/23 Status: Ordered take 1 tablet by mouth once queta y Citalopram Hydrobromide 20 MG TAKE ONE TABLET BY MOUTH DAILY Oral for 90 Days Active clopidogrel 75 mg oral tablet (2 sources) P2Y12 Platelet Inhibitor Start: 05-10-2023 take 1 mg by mouth once daily Plavix 75 mg Tab mg tab(s), Oral, Daily, Refills(s) 0 Start Date: 05/10/23 Status: Ordered Plavix Active estradiol 0.1 mg/ml vaginal cream (1 source) Estrogen Start: 05-10-2023 Estrace 0.1 mg /g Cream See Instructions, 42.5 gm, Refill(s) 3, apply pea size amount to urethra/inner vagina 3x/week x 1 month, then 2x/week for maintainence, [facility], 152.4, cm, 05/10/23 9:55:00 EDT, Height/Length Dosing, 57.6, kg, 05/10/23 9:55:00 EDT, Weight Dosing Start Date: 05/10/23 Status: Ordered lisinopril 40 mg oral tablet (3 sources) Angiotensin Converting Enzyme Inhibitor Start: 05-10-2023 take 1 mg by mouth once daily lisinopril 40 mg Tab mg tab(s), Oral, Daily, Refills(s) 0 Start Date: 05/10/23 Status: Ordered take 1 tablet by mouth once queta y Lisinopril 40 MG TAKE ONE TABLET BY MOUTH DAILY Oral for 90 Days Active omeprazole 20 mg delayed release oral capsule (2 sources) Proton Pump Inhibitor take 1 capsule by mouth twice daily Omeprazole 20 MG 1 capsule 30 minutes before morning meal Orally BID Active rosuvastatin calcium 20 mg oral tablet (3 sources) HMG-CoA Reductase Inhibitor Start: take 1 mg by mouth once daily rosuvastatin 20 mg Tab mg tab(s), Oral, Daily, Refills(s) 0 Start Date: 05/10/23 Status: Ordered Rosuvastatin [place]iles cium 20 MG Oral for 90 Days Active Problems Problem Classification Problem Date Documented Da te Episodic/Chronic Abdominal hernia (1 source) Diaphragmatic hernia without obstruction or gangrene Episodic Calculus of urinary tract (5 sources) Personal history of urinary calculi; Translations: [History of calculus of kidney] Onset: 3 Episodic Conditions associated with dizziness or vertigo (2 sources) Dizziness; Translations: [Dizziness and giddiness] Onset: 2 Episodic Coronary atherosclerosis and other heart disease (1 source) Coronary arteriosclerosis 05-10-2023 Chronic Disorders of lipid metabolism (3 sources) Pure hypercholesterolemia, unspecified; Translations: [Hyperlipidemia, unspecified] Onset: 2 05-10-2023 Chronic E Codes: Cut/pierceb (1 source) Contact with knife, initial encounter; Translations: [CONTACT WITH KNIFE INITIAL ENC] Onset: 3 Episodic Esophageal disorders (5 sources) Gastroesophageal reflux disease; Translations: [Gastro-esophageal reflux disease without esophagitis] Chronic Essential hypertension (6 sources) Essential (primary) hypertension; Translations: [Hypertensive disorder] Onset: 2 Chronic Genitourinary symptoms and ill-defined conditions (2 sources) Unspecified symptoms and signs involving the genitourinary system; Translations: [Urinary symptoms ] Onset: 3 Episodic Immunizations and screening for infectious disease (1 source) Encounter for immunization; Translations: [ENCOUNTER FOR IMMUNIZATION] Onset: 3 Episodic Menopausal disorders (2 sources) Atrophic vaginitis; Translations: [Postmenopausal atrophic vaginitis] Onset: 3 Chronic Mood disorders (1 source) Mood disorders; Translations: [DEPRESSION UNSPECIFIED] Onset: 3 Nonspecific chest pain (2 sources) Chest pain; Translations: [Chest pain, unspecified] Onset: 2 Episodic Open wounds of extremities (4 sources) Laceration without foreign body of right index finger without damage to nail, initial encounter; Translations: [LAC W/O FB RT IF W/O DMG NAIL INIT] Onset: 3 Episodic Other aftercare (1 source) Other retirement (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 therapy; Translations: [OTH PENITENTIARY CURRENT DRUG THERAPY] Onset: 3 Episodic Other gastrointestinal disorders (1 source) Dysphagia, unspecified; Translations: [Dysphagia, unspecified] Onset: 3 Episodic Other screening for suspected conditions (not mental disorders or infectious disease) (2 sources) Echocardiogram abnormal; Translations: [Abnormal result of other cardiovascular function study] Onset: 2 Episodic Prolapse of female genital organs (2 sources) Cystocele; Translations: [Cystocele, unspecified] Onset: 3 Chronic Residual codes; unclassified (1 source) Family history of malignant neoplasm of digestive organs Episodic Substance-related disorders (1 source) Nicotine dependence, cigarettes, uncomplicated; Translations: [NICOTINE DEPEND CIGARETTES UNCOMP] Onset: 3 Chronic Unclassified (2 sources) cath procedure; Translations: [cath procedure] Onset: 3 Urinary tract infections (1 source) Urinary tract infectious disease 05-10-2023 Episodic Results Test Name Value Interpretation Reference Range Facil ity RAD - MISCon 05-30-2023 RAD - MISC [id number]#1.00TI FF [facility] Operative Reporton 3 Operative Report [id number]#1.00TIFF [facility] - MISCon 05-24-2023 RAD - MISC [id number]#1.00TI FF [facility] Consultation Noteon 05-22-20 23 Consultation Note [id number]#1.00TIFF [facility] Lab Reportson 05-18-2023 Lab Reports [id number]#1.00T IFF [facility] Lab Reports [id number]#1.00T IFF [facility] Lab Reports [id number]#1.00T IFF [facility] Lab Reports [id number]#1.00T IFF Normal [facility] Consultation Noteon 05-15-20 Consultation Note [id number]#1.00TIFF [facility] ED Note-Physicianon 05-12-20 ED Note-Physician [id number] #1.00TIFF [facility] Formson 05-11-2023 Forms [id number]#1.00TI FF [facility] Ambulatory Visit Summaryon 1 07-10-2022 Ambulatory Visit Summary SLY COY :1955 Visit Date:05/10/2023 Ambulatory Visit Instructions Your Diagnosis Kidney stones Vaginal atrophy UTI symptoms Personal history of kidney stones Female bladder prolapse Tests Performed Urnls Dip Stick Auto w/o Microscopy POC 05054 Your Care Team Attending Physician - Elizabeth Lott MD Primary Care Physician - NADIRA MARTÍNEZ CNP Referring Physician - NADIRA MARTÍNEZ CNP This Is Your Medications List estradiol topical (Estrace 0.1 mg/g Cream) Contact prescribing physician if questions or concerns alprazolam aspirin (aspirin 81 mg oral capsule) citalopram (citalopram 20 mg Tab) clopidogrel (Plavix 75 mg Tab) lisinopril (lisinopril 40 mg Tab) rosuvastatin (rosuvastatin 20 mg Tab) Procedures Performed Stented artery (01/07/2023), ESWL of kidney (03/05/2009), ESWL of kidney (01/22/2009), ESWL of kidney (09/28/2006), Urodynamics (12/13/2005), ESWL of kidney (12/01/2005), Cystoscopy (11/25/2005), Bladder care. Discharge Vitals Heart Rate (Peripheral) 73 Respiratory Rate 16 Blood Pressure 101/67 Height 152.40 cm Height 60 in Weight 57.60 kg Weight 126.72 lb BMI 24.8 What to do next You Need to Schedule the Following Appointments Follow Up with Oren BOB, Elizabeth Brown, URL, URO When: Comments: Sched Lt ESWL/Stent Where: Medications What How Much When Instructions New estradiol topical (Estrace 0.1 mg/ g Cream) See instructions Refills: 3 apply pea size amount to urethra/ inner vagina 3x/ week x 1 month, then 2x/ week for maintainence Pickup at [facility] Unchanged alprazolam By Mouth Contact prescribing physician if questions or concerns Unchanged aspirin (aspirin 81 mg oral capsule) By Mouth Every 24 hours Contact prescribing physician if questions or concerns Unchanged citalopram (citalopram 20 mg Tab) By Mouth Every day Contact prescribing physician if questions or concerns Unchanged clopidogrel (Plavix 75 mg Tab) By Mouth Every day Contact prescribing physician if questions or concerns Unchanged lisinopril (lisinopril 40 mg Tab) By Mouth Every day Contact prescribing physician if questions or concerns Unchanged rosuvastatin (rosuvastatin 20 mg Tab) By Mouth Every day Contact prescribing physician if questions or concerns Pharmacy Information [facility] [address]: [address], [place] [id number] [phone] Test Results Urnls Dip Stick Auto w/o Microscopy POC 24046 (05/10/2023) Bilirubin Urine Dipstick - Negative Blood Urine Dipstick - 2+ Moderate Glucose Urine Dipstick - Negative Ketones Urine Dipstick - Negative Leukocytes Urine Dipstick - Negative Nitrite Urine Dipstick - Negative Protein Urine Dipstick - Negative Specific [place] Urine Dipstick - 1.025 Urine Appearance Urine Dipstick - Clear Urine Color Urine Dipstick - Yellow Urobilinogen Urine Dipstick - Normal 0.2-1 EU/dl pH Urine Dipstick - 5.5 Allergies No Known Medication Allergies Problems Ongoing - Any problem that you are currently receiving treatment for. CAD (coronary artery disease) Female bladder prolapse Hyperlipidemia Hypertension Kidney stones Personal history of kidney stones UTI (urinary tract infection) UTI symptoms Vaginal atrophy Patient Survey You may receive a survey via text or e-mail asking about your office visit. Please share your experience with us by completing your survey. We appreciate your feedback and thank you for choosing us for your care. Education Materials Dietary Guidelines to Help Prevent Kidney Stones Kidney stones are deposits of minerals and salts that form inside your kidneys. Your risk of developing kidney stones may be greater depending on your diet, your lifestyle, the medicines you take, and whether you have certain medical conditions. Most people can lower their chances of developing kidney stones by following the instructions below. Your dietitian may give you more specific instructions depending on your overall health and the type of kidney stones you tend to develop. What are tips for following this plan? Reading food labels ? Choose foods with no salt added or low-salt labels. Limit your salt (sodium) intake to less than 1,500 mg a day. ? Choose foods with calcium for each meal and snack. Try to eat about 300 mg of calcium at each meal. Foods that contain 200?500 mg of calcium a serving include: ? 8 oz (237 mL) of milk, qiklala-isrfjqhhxcmk-hwmzt milk, and calcium-fortifiedfruit juice. Calcium-fortified means that calcium has been added to these drinks. ? 8 oz (237 mL) of kefir, yogurt, and soy yogurt. ? 4 oz (114 g) of tofu. ? 1 oz (28 g) of cheese. ? 1 cup (150 g) of dried figs. ? 1 cup (91 g) of cooked broccoli. ? One 3 oz (85 g) can of sardines or mackerel. Most people need 1,000?1,500 mg of calcium a day. Talk to your dietitian about how much calcium is recommended for you. S (more content not included)... [facility] Formson 05-10-2023 Forms [id number]#1.00TI FF [facility] Insurance Correspondenceon 1 07-10-2022 Insurance Correspondence [id number]#1.00TIFF [facility] Patient Educationon 05-10-20 Patient Education Nephrology Dietary Guidelines to Help Prevent Kidney Stones Kidney stones are deposits of minerals and salts that form inside your kidneys. Your risk of developing kidney stones may be greater depending on your diet, your lifestyle, the medicines you take, and whether you have certain medical conditions. Most people can lower their chances of developing kidney stones by following the instructions below. Your dietitian may give you more specific instructions depending on your overall health and the type of kidney stones you tend to develop. What are tips for following this plan? Reading food labels ? Choose foods with no salt added or low-salt labels. Limit your salt (sodium) intake to less than 1,500 mg a day. ? Choose foods with calcium for each meal and snack. Try to eat about 300 mg of calcium at each meal. Foods that contain 200?500 mg of calcium a serving include: ? 8 oz (237 mL) of milk, memyybn-clvbtkxhvtto-tdsup milk, and calcium-fortifiedfruit juice. Calcium-fortified means that calcium has been added to these drinks. ? 8 oz (237 mL) of kefir, yogurt, and soy yogurt. ? 4 oz (114 g) of tofu. ? 1 oz (28 g) of cheese. ? 1 cup (150 g) of dried figs. ? 1 cup (91 g) of cooked broccoli. ? One 3 oz (85 g) can of sardines or mackerel. Most people need 1,000?1,500 mg of calcium a day. Talk to your dietitian about how much calcium is recommended for you. Shopping ? Buy plenty of fresh fruits and vegetables. Most people do not need to avoid fruits and vegetables, even if these foods contain nutrients that may contribute to kidney stones. ? When shopping for convenience foods, choose: ? Whole pieces of fruit. ? Pre-made salads with dressing on the side. ? Low-fat fruit and yogurt smoothies. ? Avoid buying frozen meals or prepared deli foods. These can be high in sodium. ? Look for foods with live cultures, such as yogurt and kefir. ? Choose high-fiber grains, such as whole-wheat breads, oat bran, and wheat cereals. Cooking ? Do not add salt to food when cooking. Place a salt shaker on the table and allow each person to add his or her own salt to taste. ? Use vegetable protein, such as beans, textured vegetable protein (TVP), or tofu, instead of meat in pasta, casseroles, and soups. Meal planning ? Eat less salt, if told by your dietitian. To do this: ? Avoid eating processed or pre-made food. ? Avoid eating fast food. ? Eat less animal protein, including cheese, meat, poultry, or fish, if told by your dietitian. To do this: ? Limit the number of times you have meat, poultry, fish, or cheese each week. Eat a diet free of meat at least 2 days a week. ? Eat only one serving each day of meat, poultry, fish, or seafood. ? When you prepare animal protein, cut pieces into small portion sizes. For most meat and fish, one serving is about the size of the palm of your hand. ? Eat at least five servings of fresh fruits and vegetables each day. To do this: ? Keep fruits and vegetables on hand for snacks. ? Eat one piece of fruit or a handful of berries with breakfast. ? Have a salad and fruit at lunch. ? Have two kinds of vegetables at dinner. ? Limit foods that are high in a substance called oxalate. These include: ? Spinach (cooked), rhubarb, beets, sweet potatoes, and Sammarinese chard. ? Peanuts. ? Potato chips, kyrgyz fries, and baked potatoes with skin on. ? Nuts and nut products. ? Chocolate. ? If you regularly take a diuretic medicine, make sure to eat at least 1 or 2 servings of fruits or vegetables that are high in potassium each day. These include: ? Avocado. ? Banana. ? [place], prune, carrot, or tomato juice. ? Baked potato. ? Cabbage. ? Beans and split peas. Lifestyle ? Drink enough fluid to keep your urine pale yellow. This is the most important thing you can do. Spread your fluid intake throughout the day. ? If you drink alcohol: ? Limit how much you use to: ? 0?1 drink a day for women who are not . ? 0?2 drinks a day for men. ? Be aware of how much alcohol is in your drink. In the [place] one drink equals one 12 oz bottle of beer (355 mL), one 5 oz glass of wine (148 mL), or one 1? oz glass of hard liquor (44 mL). ? Lose weight if told by your health care provider. Work with your dietitian to find an eating plan and weight loss strategies that work best for you. General information ? Talk to your health care provider and dietitian about taking daily supplements. You may be told the following depending on your health and the cause of your kidney stones: ? Not to take supplements with vitamin C. ? To take a calcium supplement. ? To take a daily probiotic supplement. ? To take other supplements such as magnesium, fish oil, or vitamin B6. ? Take kfwk-jmm-lbipmfn and prescription medicines only as told by your health care provider. These include supplements. What foods should I limit? Limit your in (more content not included)... Normal [facility] Screenson 05-10-2023 Screens [id number] FF Normal [facility] Urology Office/Clinic Noteon 05-10-2023 Urology Office/Clinic Note Chief Complai nt kidney stones HPI Staff Pt is a new pt. Last seen in our office 02/23/09 by PRW due to Kidney Stones. S/P Lt ESWL 03/05/09. recently patient has been seeing Dr De Jesus in [place] but his practice no longer accepts pt's insurance so she had to find a new provider. Here today due to Kidney Stones & UTI. KUB 03/18/23 [facility] ER 03/27/23 CC: blood in urine & lower abdominal as well as back pain CT ap wo 03/27/23- 3 non obstructing stones largest measuring 9mm in left kidney. NEG C&S 03/27/23 *Tx'd w/Keflex 500mg TID x7days CBC/CMP *BUN 11.0 & Crea 0.66 Patient has h/o bladder sling surgery, states she feels her bladder is prolapsing again. PVR TODAY 19CC Flank pain: Bilateral flank pain, intermittently mild discomfort ongoing for a long time. Painful urination: no Blood in urine: no intermittently, patient states she sometimes spots blood vaginally, states she has bladder prolapse and she's wondering if that could be causing it. urinary frequency: no urinary urgency: yes incomplete emptying: no, patient FEELS empty but states she can go 10 minutes later. PVR 19cc nocturia: yes 3x at night, ongoing for a long time weak stream: no post void dribbling: no urinary incontinence: yes leaks with coughs and sneezes. intermittently urge incontinence. History of Present Illness Tests reviewed: reviewed UA and External Records. I have reviewed the previous health record information and history for this patient from External Provider. I have reviewed and verified the staff HPI to be accurate for this encounter. There have been no associated fever, chills, flank pain, or blood in the urine. Review of Systems PHQ Score Initial Depression Screen Score: 0 ROS - Provider Constitutional: denies weight loss, denies hot flashes. Eyes: denies eye problems. Gastrointestinal: denies nausea, denies vomiting. Cardiovascular: denies chest pain or angina. Integumentary: no dryness Musculoskeletal: denies musculoskeletal symptoms. ENMT: denies otolaryngeal symptoms. Respiratory: no shortness of breath. Heme/Lymph: denies easy bleeding tendency, denies easy bruising tendency. Psychiatric: no confusion, no anxiety. Genitourinary: See HPI. Physical Exam Vitals & Measurements HR: 73(Peripheral) RR: 16 BP: 101/67 HT: 60 in HT: 152.40 cm WT: 57.60 kg WT: 126.72 lb BMI: 24.8 General Appearance: alert , no acute distress, well nourished, well developed female. Head: normocephalic . Eyes: normal orbit and globe. ENMT: normal examination of external ears. Chest: symmetric chest rise, respirations non labored . Cardiovascular: regular rate and rhythm. Abdomen: soft, non distended, no tenderness Genitourinary: bladder nonpalpable, no flank tenderness. Skin: warm, dry, no bruising. Psychiatric: cooperative, affect appropriate for age, normal judgement, euthymic mood. Assessment/Plan 67 yo F prior PRW pt with history of kidney stones here to re-establish care and recurrence of bladder prolapse CBC/CMP *BUN 11.0 & Crea 0.66 1. Kidney stones (N20.0: Calculus of kidney) KUB 03/18/23 - 3 clusters of calcification projecting over the Lt kidney and 1 cluster of calcification projecting over the Rt kidney [facility] ER 03/27/23 CC: blood in urine & lower abdominal as well as back pain CT ap wo 03/27/23- 3 non obstructing stones largest measuring 9mm in left kidney. Upon personal review: 9x6mm LMP, 7x5mm LUP, 5x4mm LLP, 7.7x6mm RUP SSD 8-10cm, all HU 750 Pt states that she never had a metabolic workup. Pt states that she drinks a lot of water throughout the day, only drinking 3 bottles. Advised pt that she should drink more water to make 2.5 L UOP/day. Counseled pt on the stone prevention dietary modifications Discussed management options including observation vs intervention including extracorporeal shockwave lithotripsy vs ureteroscopy with laser lithotripsy/stone basket extraction possible stent vs PCNL. Risks/benefits of each were discussed including but not limited to: observation- renal damage, pain or infection; ESWL- bleeding, hematoma, pain, infection, inability to break up the stone, ureteral obstruction, cardiac arrhythmias, damage to surrounding structures and need for additional procedures; ureteroscopy - bleeding, pain, infection, damage to surrounding structures, ureteral perforation, stricture, inability to treat the stone and need for additional procedures. If a stent is placed, pt understands this is not permanent and needs to be removed or exchanged within 3 months to prevent encrustation, infection, permanent renal damage and need for more invasive procedures. PCNL more invasive, higher risk of bleeding, urine leak but highest stone free rate in single procedure. Pt states that she would like to try the ESWL again see if this gets rid of her stones and if the stones are not treated afterwards then she would like to get the Laser Litho. -Will schedule Cysto with left JJ Stent Placement and Lt ESWL, stag (more content not included)... [facility] Comment on above: Result Comment: Elec tronically Signed By: Elizabeth Lott MD\.br\Date and Time Signed: 05/10/23 12:16 EDT\.br\Electronically Co-Signed By: Shahana Mazariegos.br\Date and Time Co-Signed: 05/10/23 10:28 EDT RAD - MISCon 03-27-2023 RAD - MISC [id number]: 127 Normal [facility] Basic Metabolic Profon 01-23 Anion gap [Moles/Vol] 10 mmol/L Normal 9-17 [facility] Comment on above: Performed By: #### B MP, CBC #### [facility] [address] [place] [address] [place] [address] Mill Washer: Brooks Almazan MD BUN/CRE Ratio 30 High 9-20 [facility] Comment on above: Performed By: #### B MP, CBC #### [facility] [address] [place] [address] Mill Washer: Brooks Almazan MD Calcium [Mass/Vol] 8.9 mg/dL Normal 8.6-10.4 [facility] Comment on above: Performed By: #### B MP, CBC #### [facility] [place] [address] Mill Washer: Brooks Almazan MD Chloride [Moles/Vol] 104 mmol/L Normal 98-107 [facility] [facility] Comment on above: Performed By: #### B MP, CBC #### [facility] [place] [address] Mill Washer: Brooks Almazan MD CO2 [Moles/Vol] 27 mmol/L Normal 20-31 [facility] Comment on above: Performed By: #### B MP, CBC #### [facility] [place] [address] Mill Washer: Brooks Almazan MD Creatinine [Mass/Vol] 0.5 mg/dL Normal 0.5-0.9 [facility] Comment on above: Performed By: #### B MP, CBC #### [facility] [place] [address] Mill Washer: Brooks Almazan MD GFR/1.73 sq M.predicted barbara g non-blacks MDRD (S/P/Bld) [Vol rate/Area] mL/min/{1.73_m2} Normal >60 [facility] Comment on above: Result Comment: These results are not intended for use in patients <18 years of age. eGFR results are calculated without a race factor using the 2020 CKD-EPI equation. Careful clinical correlation is recommended, particularly when comparing to results calculated using previous equations. The CKD-EPI equation is less accurate in patients with extremes of muscle mass, extra-renal metabolism of creatine, excessive creatine ingestion, or following therapy that affects renal tubular secretion. Performed By: #### B MP, CBC #### [facility] [address] [facility] [place] [address] Mill Washer: Brooks Almazan MD Glucose [Mass/Vol] 97 mg/dL Normal 70-99 [facility] Comment on above: Performed By: #### B MP, CBC #### [facility] [address] [place] [address]. [place] [address] Mill Washer: Brooks Almazan MD Potassium [Moles/Vol] 4.8 mmol/L Normal 3.7-5.3 [facility] Comment on above: Result Comment: SPEC IMEN SLIGHTLY HEMOLYZED, RESULTS MAY BE ADVERSELY AFFECTED. Performed By: #### B MP, CBC #### [facility] [address] [place] [address]. [place] [address] Mill Washer: Brooks Almazan MD Sodium [Moles/Vol] 141 mmol/L Normal 135-144 [facility] Comment on above: Performed By: #### B GAL, CBC #### [facility] [place] [address] Mill Washer: Brooks Almazan MD Urea nitrogen [Mass/Vol] 15 mg/dL Normal 8-23 [facility] Comment on above: Performed By: #### B MP, CBC #### [facility] [address] [place] [address]. [place] [address] Mill Washer: Brooks Almazan MD CBCon 01-23-2023 Erythrocyte distribution wid th (RBC) [Ratio] 12.4 % Normal 11.8-14.4 [facility] Comment on above: Performed By: #### B MP, CBC #### [facility] [address] [place] [address] Mill Washer: Brooks Almazan MD Hematocrit (Bld) [Volume fraction] 40.3 % Normal 3 6.3-47.1 [facility] Comment on above: Performed By: #### B MP, CBC #### [facility] [place] [address] Mill Washer: Brooks Almazan MD Hemoglobin (Bld) [Mass/Vol] 13.1 g/dL Normal 11.9-15. 1 [facility] Comment on above: Performed By: #### B MP, CBC #### [facility] [address] [place] [address]. [place] [address] Mill Washer: Brooks Almazan MD MCH (RBC) [Entitic mass] 30.0 pg Normal 25.2-33.5 [facility] Comment on above: Performed By: #### B MP, CBC #### [facility] [address] [place] [address] Mill Washer: Brooks Almazan MD MCHC (RBC) [Mass/Vol] 32.5 g/dL Normal 28.4-34.8 [facility] Comment on above: Performed By: #### B MP, CBC #### [facility] [address] [place] [address]. [place] [address] Mill Washer: Brooks Almazan MD MCV (RBC) [Entitic vol] 92.4 fL Normal 82.6-102.9 [facility] Comment on above: Performed By: #### B MP, CBC #### [facility] [address] [place] [address]. [place] [address] Mill Washer: Brooks Almazan MD NRBC Automated 0.0 per 100 WBC Normal 0.0 [facility] Comment on above: Performed By: #### B MP, CBC #### [facility] [address] [place] [address] Mill Washer: Brooks Almazan MD Platelet mean volume (Bld) [ Entitic vol] 9.3 fL Normal 8.1-13.5 [facility] Comment on above: Performed By: #### B MP, CBC #### [facility] [address] [place] [address] Mill Washer: Brooks Almazan MD Platelets (Bld) [#/Vol] 234 10*3/uL Normal 138-453 [facility] Comment on above: Performed By: #### B MP, CBC #### [facility] [address] [place] [address] Mill Washer: Brooks Almazan MD RBC (Bld) [#/Vol] 4.36 10*6/uL Normal 3.95-5.11 [facility] Comment on above: Performed By: #### B MP, CBC #### [facility] [place] [address] Mill Washer: Brooks Almazan MD WBC (Bld) [#/Vol] 7.1 10*3/uL Normal 3.5-11.3 [facility] Comment on above: Performed By: #### B MP, CBC #### [facility] [address] [place] [address] Mill Washer: Brooks Almaazn MD CBC AUTO DIFFon 11-27-2021 BASO # 0.1 103/ul Normal 0.0-0.1 [facility] Comment on above: Performed By: #### C BC #### [facility] [address] [place] [address] Dr. Liliam Sanderson Basophils/100 WBC (Bld) 0.7 % Normal 0.2-2.0 [facility] Comment on above: Performed By: #### C BC #### [facility] [address] [place] [address] Dr. Liliam Sanderson EO # 0.2 103/ul Normal 0.0-0.7 [facility] Comment on above: Performed By: #### C BC #### [facility] [address] [place] [address] Dr. Liliam Sanderson Eosinophils/100 WBC (Bld) 2.2 % Normal 0.9-7.0 [facility] Comment on above: Performed By: #### C BC #### [facility] [address] [place] [address] Dr. Liliam Sanderson Erythrocyte distribution wid th (RBC) [Ratio] 12.0 % Normal 11.0-15.0 [facility] Comment on above: Performed By: #### C BC #### [facility] [address] [place] [address] Dr. Liliam Sanderson Hematocrit (Bld) [Volume fraction] 40.6 % Normal 3 6.0-48.0 [facility] Comment on above: Performed By: #### C BC #### [facility] [address] [place] [address] Dr. Liliam Sanderson Hemoglobin (Bld) [Mass/Vol] 13.3 g/dL Normal 12.0-16. 0 [facility] Comment on above: Performed By: #### C BC #### [facility] [address] [place] [address] Dr. Liliam Sanderson IG # 0.03 10e3/ul Normal 0.00-0.03 [facility] Comment on above: Performed By: #### C BC #### [facility] [address] [place] [address] Dr. Liliam Sanderson IG % 0.3 % Normal 0.0-0.5 [facility] Comment on above: Performed By: #### C BC #### [facility] [address] [address] [address] Liliam Sanderson LYMPH # 3.2 103/ul Normal 1.2-3.8 [facility] Comment on above: Performed By: #### C BC #### [facility] [address] [place] [address] Dr. Liliam Sanderson Lymphocytes/100 WBC (Bld) 30.7 % Normal 20.5-60.0 [facility] Comment on above: Performed By: #### C BC #### [facility] [address] [place] [address] Dr. Liliam Sanderson MANUAL DIFF REQ NO Normal [facility] Comment on above: Performed By: #### C BC #### [facility] [address] [place] [address] Dr. Liliam Sanderson MCH (RBC) [Entitic mass] 30.2 pg Normal 26.7-34.0 [facility] Comment on above: Performed By: #### C BC #### [facility] [address] [place] [address] Dr. Liliam Sanderson MCHC (RBC) [Mass/Vol] 32.8 g/dL Normal 29.9-35.2 [facility] Comment on above: Performed By: #### C BC #### [facility] [address] [place] [address] Dr. Liliam Sanderson MCV (RBC) [Entitic vol] 92.1 fL Normal 81.0-99.0 [facility] Comment on above: Performed By: #### C BC #### [facility] [address] [place] [address] Dr. Liliam Sanderson MONO # 0.8 103/ul Normal 0.3-0.8 [facility] Comment on above: Performed By: #### C BC #### [facility] [address] [place] [address] Dr. Liliam Sanderson Monocytes/100 WBC (Bld) 7.5 % Normal 1.7-12.0 [facility] Comment on above: Performed By: #### C BC #### [facility] [address] [place] [address] Dr. Liliam Sanderson NEUT # 6.1 103/ul Normal 1.4-6.5 [facility] Comment on above: Performed By: #### C BC #### [facility] [address] [address] [address] Liliam Sanderson Neutrophils/100 WBC (Bld) 58.6 % Normal 43.0-75.0 [facility] Comment on above: Performed By: #### C BC #### [facility] [address] [place] [address] Dr. Liliam Sanderson Platelet mean volume (Bld) [Entitic vol] 8.8 fL Critically low 9.5-13.5 [facility] Comment on above: Performed By: #### C BC #### [facility] [address] [place] [address] Dr. Liliam Sanderson PLT 264 103/ul Normal 150-450 [facility] Comment on above: Performed By: #### C BC #### [facility] [address] [place] [address] Dr. Liliam Sanderson RBC 4.41 106/ul Normal 4.20-5.40 [facility] Comment on above: Performed By: #### C BC #### [facility] [address] [place] [address] Dr. Liliam Sanderson WBC 10.4 103/ul Normal 4.0-11.0 [facility] Comment on above: Performed By: #### C BC #### [facility] [address] [place] [address] Dr. Liliam Sanderson LIPID PROFILEon 11-27-2021 CHOL-HDL RATIO NORM SEE BELOW Normal [facility] Comment on above: Result Comment: 3.3 - 4.4 LOW RISK 4.4 - 7.1 AVERAGE RISK 7.1 - 11.0 MODERATE RISK >11.0 HIGH RISK Performed By: #### C MP, LIPID #### [facility] [address] [place] [address] Dr. Liliam Sanderson Cholesterol [Mass/Vol] 204 mg/dL Critically high <=200 [facility] Comment on above: Performed By: #### C MP, LIPID #### [facility] [address] [address] [address] Liliam Sanderson Cholesterol in HDL [Mass/Vol] 46 mg/dL Normal 40-60 [facility] Comment on above: Performed By: #### C MP, LIPID #### [facility] [address] [address] [address] Liliam Sanderson Cholesterol in LDL [Mass/Vol] 125.4 mg/dL Normal [facility] Comment on above: Performed By: #### C MP, LIPID #### [facility] [address] [address] [address] Liliam Sanderson Cholesterol.total/Cholestero l in HDL [Mass ratio] 4.4 {ratio} Normal [facility] Comment on above: Performed By: #### C MP, LIPID #### [facility] [address] [address] [address] Liliam Sanderson HDL NORMAL > or = 60 mg/dl - LO W CARDIOVASCULAR RISK <40 mg/dl - HIGH CARDIOVASCULAR RISK Normal [facility] Comment on above: Performed By: #### C MP, LIPID #### [facility] [address] [address] [address] Liliam Sanderson LDL CALC NORMAL SEE BELOW Normal [facility] Comment on above: Result Comment: <100 mg/dl OPTIMAL 100 - 129 mg/dl NEAR OR ABOVE OPTIMAL 130 - 159 mg/dl BORDERLINE HIGH 160 - 189 mg/dl HIGH >190 mg/dl VERY HIGH Performed By: #### C MP, LIPID #### [facility] [address] [address] [address] Liliam Sanderson Triglyceride [Mass/Vol] 163 mg/dL Critically high <=150 [facility] Comment on above: Performed By: #### C MP, LIPID #### [facility] [address] [address] [address] Liliam Sanderson VLDL CALC 32.6 mg/dL Normal [facility] Comment on above: Performed By: #### C MP, LIPID #### [facility] [address] [place] [address] Dr. Liliam Sanderson PROF 14(COMP METB)on 022 Albumin [Mass/Vol] 4.1 g/dL Normal 3.4-5.0 [facility] Comment on above: Performed By: #### C MP, LIPID #### [facility] [address] [place] [address] Dr. Liliam Sanderson Albumin/Globulin [Mass ratio] 1.2 {ratio} Normal [facility] Comment on above: Performed By: #### C MP, LIPID #### [facility] [address] [place] [address] Dr. Liliam Sanderson ALP [Catalytic activity/Vol] 61 U/L Normal 46-116 [facility] Comment on above: Performed By: #### C MP, LIPID #### [facility] [address] [place] [address] Dr. Liliam Sanderson ALT [Catalytic activity/Vol] 20 U/L Normal 14-59 [facility] Comment on above: Performed By: #### C MP, LIPID #### [facility] [address] [place] [address] Dr. Liliam Sanderson Anion gap [Moles/Vol] 11.4 mmol/L Normal [facility] Comment on above: Performed By: #### C MP, LIPID #### [facility] [address] [place] [address] Dr. Liliam Sanderson AST [Catalytic activity/Vol] 12 U/L Critically low 15- 37 [facility] Comment on above: Performed By: #### C MP, LIPID #### [facility] [address] [place] [address] Dr. Liliam Sanderson Bilirubin [Mass/Vol] 0.5 mg/dL Normal 0.2-1.0 [facility] Comment on above: Performed By: #### C MP, LIPID #### [facility] [address] [place] [address] Dr. Liliam Sanderson Calcium [Mass/Vol] 8.9 mg/dL Normal 8.5-10.1 [facility] Comment on above: Performed By: #### C MP, LIPID #### [facility] [address] [address] [address] Liliam Sanderson Chloride [Moles/Vol] 102 mmol/L Normal 98-107 [facility] Comment on above: Performed By: #### C MP, LIPID #### [facility] [address] [address] [address] Liliam Sanderson CO2 [Moles/Vol] 28.3 mmol/L Normal 21.0-32.0 [facility] Comment on above: Performed By: #### C MP, LIPID #### [facility] [address] [address] [address] Liliam Sanderson Creatinine [Mass/Vol] 0.66 mg/dL Normal 0.55-1.02 [facility] Comment on above: Performed By: #### C MP, LIPID #### [facility] [address] [place] [address] Dr. Liliam Sanderson EGFR-AF MALAWIAN >60 Normal >=60 [facility] Comment on above: Performed By: #### C MP, LIPID #### [facility] [address] [place] [address] Dr. Liliam Sanderson EGFR-NON AF MALAWIAN >60 Normal >=60 [facility] Comment on above: Performed By: #### C MP, LIPID #### [facility] [address] [address] [address] Liliam Sanderson Globulin (S) [Mass/Vol] 3.4 g/dL Normal [facility] Comment on above: Performed By: #### C MP, LIPID #### [facility] [address] [place] [address] Dr. Liliam Sanderson Glucose [Mass/Vol] 100 mg/dL Normal 74-106 [facility] Comment on above: Performed By: #### C MP, LIPID #### [facility] [address] [place] [address] Dr. Liliam Sanderson Potassium [Moles/Vol] 3.7 mmol/L Normal 3.5-5.1 [facility] Comment on above: Performed By: #### C MP, LIPID #### [facility] [address] [address] [address] Liliam Sanderson Protein [Mass/Vol] 7.5 g/dL Normal 6.4-8.2 [facility] Comment on above: Performed By: #### C MP, LIPID #### [facility] [address] [address] [address] Liliam Sanderson Sodium [Moles/Vol] 138 mmol/L Normal 136-145 [facility] Comment on above: Performed By: #### C MP, LIPID #### [facility] [address] [address] [address] Liliam Sanderson Urea nitrogen [Mass/Vol] 14.0 mg/dL Normal 7.0-18.0 [facility] Comment on above: Performed By: #### C MP, LIPID #### [facility] [address] [address] [address] Liliam Sanderson Urea nitrogen/Creatinine [Mass ratio] 21.2 mg/mg Normal [facility] Comment on above: Performed By: #### C MP, LIPID #### [facility] [address] [address] [address] Liliam Sanderson Vital Signs Date Time Vital Sign Value Performing Clinician Facility 05-10-2023 09:48-0400 Blood Pressure Location Elizabeth Lue [facility] 05-10-2023 09:48-0400 Diastolic blood pressure 67 mm[Hg] Elizabeth Lue [facility] 05-10-2023 09:48-0400 Heart rate 73 /min Elizabeth Lue [facility] 05-10-2023 09:48-0400 Respiratory rate 16 /min Elizabeth Lue [facility] 05-10-2023 09:48-0400 Systolic blood pressure 101 mm[Hg] Elizabeth Lue [facility] 02-14-2023 14:00-0400 Body height 153.67 cm Himanshu Scovanner [facility] [employer] Other 02-14-2023 14:00-0400 Body mass index (BMI) [Ratio] 24.78 kg/m2 Himanshu Scovanner [facility] [employer] Other 02-14-2023 14:00-0400 Body weight 58.51 kg Himanshu Scovanner Other [employer] Other 02-14-2023 14:00-0400 Diastolic blood pressure 84 mm[Hg] Himanshu Scovanner Other [employer] Other 02-14-2023 14:00-0400 Systolic blood pressure 142 mm[Hg] Himanshu Scovanner Other [employer] Other 11-15-2022 16:30-0400 Body height 153.67 cm Himanshu Scovanner Other [employer] Other 11-15-2022 16:30-0400 Body mass index (BMI) [Ratio] 26.27 kg/m2 Himanshu Scovanner Other [employer] Other 11-15-2022 16:30-0400 Body weight 62.05 kg Himanshu Scovanner Other [employer] Other 11-15-2022 16:30-0400 Diastolic blood pressure 76 mm[Hg] Himanshu Scovanner Other [employer] Other 11-15-2022 16:30-0400 Systolic blood pressure 128 mm[Hg] Himanshu Scovanner Other [employer] Other Encounters Encounter Date Encounter Type Care Provider Facility Start: 05-24-2023 End: 05-25-2023 ambulatory Elizabeth Lott Facility:[id number] Start: 05-10-2023 End: 05-11-2023 ambulatory Elizabeth Lott Facility:[facility] Start: 05-10-2023 End: 05-10-2023 Patient encounter procedure Elizabeth Lott [facility] Start: 02-14-2023 End: 02-14-2023 ambulatory Himanshu Borjas Other [employer] Other Start: 02-14-2023 Office outpatient visit 15 minutes Himanshu Borjas [facility] Start: 02-01-2023 ambulatory Elizabeth Lott Facility:[facility] Start: 01-23-2023 End: 01-23-2023 ambulatory JAYA SIMON [facility] Start: 12-20-2022 End: 12-20-2022 ambulatory Fernando Castellon Facility:[facility] Start: 11-15-2022 End: 11-15-2022 ambulatory Himanshu oBrjas Other [employer] Other Start: 11-15-2022 Office outpatient ne w 30 minutes Himanshu Borjas [facility] Start: 09-30-2022 End: 09-30-2022 [facility]ulatory [facility] Start: 06-21-2022 End: 06-24-2022 ambulatory JUVENAL HARRELL [facility] Start: 06-21-2022 End: 06-23-2022 Subsequent hospital visit by physician [facility] Ir Nurse 1 [facility] CT Scan Comment on above: Chest pain, unspecif ied type; Dizziness; Abnormal stress ECG Start: 11-27-2021 End: 11-28-2021 ambulatory NADIRA MARTÍNEZ Facility:[facility] Procedures Date Procedure Procedure Detail Performing Clinician Start: 01-07-2023 Stented artery (finding) Elizabeth Lue Start: 03-05-2009 Extracorporeal shock wave lithotripsy of calculus of kidney Elizabeth Lue Start: 01-22-2009 Extracorporeal shock wave lithotripsy of calculus of kidney Elizabeth Lue Start: 09-28-2006 Extracorporeal shock wave lithotripsy of calculus of kidney Elizabeth Lue Start: 12-13-2005 Urodynamic studies Ute y Lue Start: 12-01-2005 Extracorporeal shock wave lithotripsy of calculus of kidney Elizabeth Lue Start: 11-25-2005 Transurethral cystoscopy Elizabeth Lue Bladder care Elizabeth Lue Comment on above: sling Plan of Treatment Date Care Activity Detail Author Start: 06-15-2022 Annual Wellness Visi t (AWV) Annual Wellness Visit (AWV) [facility] Start: 02-07-2022 Influenza vaccination Flu vaccine (# 1) [facility] Start: 2020 Pneumococcal 65+ yea rs Vaccine (1 - PCV) Pneumococcal 65+ years Vaccine (1 - PCV) [facility] Start: 2010 Screening for osteoporosis DEXA (modify frequency per FRAX score) [facility] Start: 2005 Screening for malign ant neoplasm of breast Breast cancer screen [facility] Start: 2005 Shingles vaccine (1 of 2) Hinojosa gles vaccine (1 of 2) [facility] Start: 2000 Screening for malign ant neoplasm of colon [facility] Start: 1995 Lipid panel Lipids [facility] Start: 1974 DTaP/Tdap/Td vaccine (1 - Tdap) DTaP/Tdap/Td vaccine (1 - Tdap) [facility] Start: 02-28-1974 Hepatitis C screening Hepatitis C sc reen [employer] Start: 1967 Depression Screen Depression Screen [employer] Start: 03-06-1956 COVID-19 Vaccine (#1) COVID-19 Vacci ne (#1) [employer] End: 06-21-2022 CTA CORON EJECT FRAC WALL MOTION CTA CORON EJECT FRAC WALL MOTION Imaging Routine Chest pain, unspecified type Dizziness Abnormal stress ECG 1 Occurrences starting 06/21/2022 until 06/21/2022 [employer]: Comment on above: 1 Occurrences starti ng 06/21/2022 until 06/21/2022 Payers Date Payer Category Payer Self-pay 2022 Private Health Insurance [id number] 1959 Medicare [id number] 1955 Unknown [id number] 2.16.8 [id number] 1955 Unknown [id number] 2.16.84 [id number] 1955 Unknown [id number] 2.16.84 [id number] 1955 Unknown [id number] 2.16.8 [id number] 1955 Unknown [id number] 2.16.8 [id number] 1955 Unknown [id number] 2.16.8 [id number] Unknown [id number] 2.16.8 [id number] Social History Date Type Detail Facility Tobacco smoking status AKIS Tobacco smoking consumption unknown [employer]: Start: 1955 Sex Assigned At Not on file B ON [employer] Phone: Sex Assigned At [place] Start: 05-10-2023 Tobacco smoking status Light tobacco smoker (finding) [facility] Functional Status Date Assessment Result Facility 05-10-2023 Functional Status N/A [facility] Hospital Discharge instructions 05-10-2023 Note Date & Type Note Facility 05-10-2023 Hospital Discharg e instructions Patient Education 05/10/2023 10:27:19 Dietary Guidelines to Help Prevent Kidney Stones Dietary Guidelines to Help Prevent Kidney Stones Kidney stones are deposits of minerals and salts that form inside your kidneys. Your risk of developing kidney stones may be greater depending on your diet, your lifestyle, the medicines you take, and whether you have certain medical conditions. Most people can lower their chances of developing kidney stones by following the instructions below. Your dietitian may give you more specific instructions depending on your overall health and the type of kidney stones you tend to develop. What are tips for following this plan? Reading food labels Choose foods with no salt added or low-salt labels. Limit your salt (sodium) intake to less than 1,500 mg a day. Choose foods with calcium for each meal and snack. Try to eat about 300 mg of calcium at each meal. Foods that contain 200 500 mg of calcium a serving include: ?8 oz (237 mL) of milk, jpobacf-ixbxgrfgpkgr-xlnod milk, and calcium-fortifiedfruit juice. Calcium-fortified means that calcium has been added to these drinks. ?8 oz (237 mL) of kefir, yogurt, and soy yogurt. ?4 oz (114 g) of tofu. ?1 oz (28 g) of cheese. ?1 cup (150 g) of dried figs. ?1 cup (91 g) of cooked broccoli. ?One 3 oz (85 g) can of sardines or mackerel. Most people need 1,000 1,500 mg of calcium a day. Talk to your dietitian about how much calcium is recommended for you. Shopping Buy plenty of fresh fruits and vegetables. Most people do not need to avoid fruits and vegetables, even if these foods contain nutrients that may contribute to kidney stones. When shopping for convenience foods, choose: ?Whole pieces of fruit. ?Pre-made salads with dressing on the side. ?Low-fat fruit and yogurt smoothies. Avoid buying frozen meals or prepared deli foods. These can be high in sodium. Look for foods with live cultures, such as yogurt and kefir. Choose high-fiber grains, such as whole-wheat breads, oat bran, and wheat cereals. Cooking Do not add salt to food when cooking. Place a salt shaker on the table and allow each person to add his or her own salt to taste. Use vegetable protein, such as beans, textured vegetable protein (TVP), or tofu, instead of meat in pasta, casseroles, and soups. Meal planning Eat less salt, if told by your dietitian. To do this: ?Avoid eating processed or pre-made food. ?Avoid eating fast food. Eat less animal protein, including cheese, meat, poultry, or fish, if told by your dietitian. To do this: ?Limit the number of times you have meat, poultry, fish, or cheese each week. Eat a diet free of meat at least 2 days a week. ?Eat only one serving each day of meat, poultry, fish, or seafood. ?When you prepare animal protein, cut pieces into small portion sizes. For most meat and fish, one serving is about the size of the palm of your hand. Eat at least five servings of fresh fruits and vegetables each day. To do this: ?Keep fruits and vegetables on hand for snacks. ?Eat one piece of fruit or a handful of berries with breakfast. ?Have a salad and fruit at lunch. ?Have two kinds of vegetables at dinner. Limit foods that are high in a substance called oxalate. These include: ?Spinach (cooked), rhubarb, beets, sweet potatoes, and S[place] chard. ?Peanuts. ?Potato chips, kyrgyz fries, and baked potatoes with skin on. ?Nuts and nut products. ?Chocolate. If you regularly take a diuretic medicine, make sure to eat at least 1 or 2 servings of fruits or vegetables that are high in potassium each day. These include: ?Avocado. ?Banana. ?[place], prune, carrot, or tomato juice. ?Baked potato. ?Cabbage. ?Beans and split peas. Lifestyle Drink enough fluid to keep your urine pale yellow. This is the most important thing you can do. Spread your fluid intake throughout the day. If you drink alcohol: ?Limit how much you use to: ?0 1 drink a day for women who are not . ?0 2 drinks a day for men. ?Be aware of how much alcohol is in your drink. In the [place] one drink equals one 12 oz bottle of beer (355 mL), one 5 oz glass of wine (148 mL), or one 1 oz glass of hard liquor (44 mL). Lose weight if told by your health care provider. Work with your dietitian to find an eating plan and weight loss strategies that work best for you. General information Talk to your health care provider and dietitian about taking daily supplements. You may be told the following depending on your health and the cause of your kidney stones: ?Not to take supplements with vitamin C. ?To take a calcium supplement. ?To take a daily probiotic supplement. ?To take other supplements such as magnesium, fish oil, or vitamin B6. Take oglv-tir-kmnknxc and prescription medicines only as told by your health care provider. These include supplements. What foods should I limit? Limit your intake of the following foods, or eat them as told by your dietitian. Vegetables Spinach. Rhubarb. Beets. Canned vegetables. Pickles. Olives. Baked potatoes with skin. Grains Wheat bran. Baked goods. Salted crackers. Cereals high in sugar. Meats and other proteins Nuts. Nut butters. Large portions of meat, poultry, or fish. Salted, precooked, or cured meats, such as sausages, meat loaves, and hot dogs. Dairy Cheese. Beverages Regular soft drinks. Regular vegetable juice. Seasonings and condiments Seasoning blends with salt. Salad dressings. Soy sauce. Ketchup. Barbecue sauce. Other foods Canned soups. Canned pasta sauce. Casseroles. Pizza. Lasagna. Frozen meals. Potato chips. Albanian fries. The items listed above may not be a complete list of foods and beverages you should limit. Contact a dietitian for more information. What foods should I avoid? Talk to your dietitian about specific foods you should avoid based on the type of kidney stones you have and your overall health. Fruits Grapefruit. The item listed above may not be a complete list of foods and beverages you should avoid. Contact a dietitian for more information. Summary Kidney stones are deposits of minerals and salts that form inside your kidneys. You can lower your risk of kidney stones by making changes to your diet. The most important thing you can do is drink enough fluid. Drink enough fluid to keep your urine pale yellow. Talk to your dietitian about how much calcium you should have each day, and eat less salt and animal protein as told by your dietitian. This information is not intended to replace advice given to you by your health care provider. Make sure you discuss any questions you have with your health care provider. Document Revised: 03/07/2022 Document Reviewed: 03/07/2022 [employer] Patient Education 2022 [employer]. Follow Up Care 02/01/2023 14:06:36 With:Oren BOB, JOCELYN Temple, [facility] Address: When: Unknown Comments:Sched Lt ESWL/Stent [facility] Evaluation note 02-14-2023 Note Date & Type Note Facility 02-14-2023 Evaluation note Encounter Date Diagnosis Assessment Notes Feb, Hiatal hernia (ICD-10 - K44.9) Pt is taking omeprazole. Pt states this medication is working for her. Pt states she still some times gets acid reflux, but overall, she is doing well. Pt RTO in 6 months Feb, Esophageal stricture (ICD-10 - K22.2) [employer] Other Evaluation note 11-15-2022 Note Date & Type Note Facility 11-15-2022 Evaluation note Encounter Date Diagnosis Assessment Notes November, GERD (gastroesophag eal reflux disease) (ICD-10 - K21.9) we will obtain a records release to get records from [facility] It is recommened that patient get EGD and she argees to have this done Patient has family history of esophageal cancer November, Family history of esophageal cancer (ICD-10 - Z80.0) [employer] Other Evaluation + Plan note Note Date & Type Note Facility Evaluation + Plan note No data available for this section [facility] Evaluation note Note Date & Type Note Facility Evaluation note Diagnosis Chest pain, unspecified type Dizziness Dizziness and giddiness Abnormal stress ECG Other nonspecific abnormal cardiovascular system function study documented in this encounter [facility] [employer] Work Phone: History general Narrative - Reported Note Date & Type Note Facility History general Narrative - Reported Type Medical History kidney stones Medical History hypertension Medical History gastritis Medical History Hiatal hernia Surgical History kidney stone Surgical History fx nose Surgical History ablasion Surgical History tubal ligation [employer] Other History general Narrative - Reported Note Date & Type Note Facility History general Narrative - Reported Type Medical History kidney stones Medical History hypertension Medical History gastritis Medical History Hiatal hernia Surgical History kidney stone Surgical History fx nose Surgical History ablasion Surgical History tubal ligation Hospitalization History Heart procedure [employer] Other Progress note Note Date & Type Note Facility Progress note No data available for this section [facility] Reason for Referral Specialty Diagnoses / Procedures Referred By Contsara t Referred To Contact Radiology Diagnoses Chest pain, unspecified type Dizziness Abnormal stress ECG R07.9 (ICD-10-CM) - Chest pain, unspecified type Procedures CTA CORON EJECT FRAC WALL MOTION CHG CT ANGIO HRT CORNRY ART/BYPASS GRFTS CONTRST 3D POST [address]24 - CHG CT ANGIO HRT CORNRY ART/BYPASS GRFTS CONTRST 3D POST Juvenal Harrell MD [address] [place] [address] Referral ID Status Reason Start Date Expiration Date V isits Requested Visits Authorized [id number] Authorized 06/21/2022 05/07/2023 1 1 Summary Purpose Family History No Family History Records FoundNo Family History Records FoundNo Family History Records FoundNo Family History Records Found No data available for this section No Family History Records Found Advance Directives No Advanced Directives Records FoundNo Advanced Directives Records FoundNo Advanced Directives Records FoundNo Advanced Directives Records FoundNo Advanced Directives Records Found Additional Source Comments Reason for Visit (unrecogniz ed section and content) Specialty Diagnoses / Procedures Referred By Contac t Referred To Contact Radiology Diagnoses Chest pain, unspecified type Dizziness Abnormal stress ECG R07.9 (ICD-10-CM) - Chest pain, unspecified type Procedures CTA CORON EJECT FRAC WALL MOTION CHG CT ANGIO HRT CORNRY ART/BYPASS GRFTS CONTRST 3D POST [id number] - CHG CT ANGIO HRT CORNRY ART/BYPASS GRFTS CONTRST 3D POST Juvenal Harrell MD [address] [place] [address] Referral ID Status Reason Start Date Expiration Date V isits Requested Visits Authorized [id number] Authorized 06/21/2022 05/07/2023 1 1 Care Teams (unrecognized sec tion and content) [employer] Relationship Specialty Start Date End Date Nadira Martínez APRN - DESKTOP ADMINISTRATOR [address] [place] [address] PCP - General Certified Nurse Practitioner 06/17/22 INFORMATION SOURCE (unrecogn ized section and content) DATE CREATED AUTHOR 06/30/2022 [facility] DATE CREATED AUTHOR AUTHOR'S ORGANIZ ATION 10/06/2022 [facility] DATE CREATED AUTHOR AUTHOR'S ORGANIZ ATION 12/26/2022 [facility] DATE CREATED AUTHOR AUTHOR'S ORGANIZ ATION 01/23/2023 [facility] DATE CREATED AUTHOR AUTHOR'S ORGANIZ ATION 06/08/2023 [facility] FOR RECORDS PERTAINING TO PATIENTS WHO ARE OR HAVE BEEN ENROLLED IN A CHEMICAL DEPENDENCY/SUBSTANCEABUSE PROGRAM, SOME INFORMATION MAY BE OMITTED. This clinical summary was aggregated from multiple sources. Caution should be exercised in using it in the provision of clinical care. This summary normalizes information from multiple sources, and as a consequence, information in this document may materially change the coding, format and clinical context of patient data. In addition, data may be omitted in some cases. CLINICAL DECISIONS SHOULD BE BASED ON THE PRIMARY CLINICAL RECORDS. [facility] [email or web address] [facility]. provides no warranty or guarantee of the accuracy or completeness of information in this document.
== END 2023-05-17 14:36 | disposition home or self-care (01) ==
LOC: PST 14:35
PROVIDERS: Visit Provider Urology
DX: Z01.810 Encounter for preprocedural cardiovascular examination (principal); Z01.812 Encounter for preprocedural laboratory examination; N20.0 Calculus of kidney; I10 Essential (primary) hypertension; I25.10 Atherosclerotic heart disease of native coronary artery without angina pectoris
CPT/HCPCS: 71046; 80048; 85025; 85610; 85730; 93005

== ENCOUNTER 2023-05-24 11:20 | Day surgery (SDC) | payer MEDICARE, SELFPAY ==
[2023-05-17 15:15] VITALS: BP 111/65; PULSE 78; RESP 16; TEMP 36.3; O2SAT 97; BMI 24.2
[2023-05-24] VITALS (15 sets, daily range): BP systolic 114–188; BP diastolic 48–82; PULSE 57–86; RESP 13–24; TEMP 36.1–36.2; O2SAT 84–100; BMI 22.6
--- NOTE | 2023-05-24 11:30 | XR_ITS ---
[address] [address] Patient Name: SLY COY MRN: [id number] date: 1955 Sex: F Assigned Patient Location: [facility] Current Patient Location: Accession/Order Number: [id number] Exam Date: 05/24/2023 11:32 Report Date: 05/24/2023 20:34 At the request of: LIYAH DENNY Procedure: XR abdomen 1V Exam: Radiographs: XR abdomen 1V Reason for exam: kidney stone Comparison: CT scan dated 03/27/2023 XR/XR abdomen 1V IMPRESSION: Multiple bilateral calyceal renal stones. No free intraperitoneal air. No gas-filled dilated loops of small bowel or colon. No gaseous dilation of the stomach. No fecal impaction. Remainder unremarkable. Electronically authenticated by: YUKI DEWITT Date: 05/24/2023 20:34
[2023-05-24] MEDS: LACTATED RINGER'S SOLUTION 1,000 ML 50 ML IV (12:03)
[2023-05-24] MEDS: CEFAZOLIN SODIUM/DEXTROSE,ISO 2 GM/50 ML PIGGYBACK IV (12:44)
--- NOTE | 2023-05-24 13:40 | PM.URSON ---
Urology Surgery Operative Note Operative Note Procedure Date: 05/24/23 Time Out Performed: yes Pre-op Diagnosis: Multiple Left kidney stones Post-op Diagnosis: same as pre-op Procedures performed: 1. Left extracorporeal shock wave lithotripsy, staged 2. Cystoscopy, left ureteral stent placement Anesthesia: General-LMA (Dr. Cosme ) Primary Surgeon: Elizabeth Lott Complications: none Estimated blood loss (mL): 0 Findings: Two radiopaque stones in left upper and mid pole underwent 3000 shocks to mid pole stone more than upper pole. Left stent placement. No bladder tumors/lesions. Small capacity bladder Specimens: none Drains: 4.8Fr x 22-30 cm JJ left ureteral stent Indications for Procedures: 67 year old female with multiple left kidney stones was evaluated in clinic and deemed a candidate for left extracorporeal shock wave lithotripsy, cystoscopy, left stent placement; staged due to stone burden. Risks were discussed to include but not limited to bleeding, pain, infection, damage to surrounding structures, inability to treat the stone, residual fragments, obstruction and need for additional procedures. Detailed description of Procedure: After informed consent was obtained, the patient was brought to the operating room and placed on the lithotripsy bed in supine position. Sequential compression devices were placed on bilateral lower extremities. The patient received the appropriate dose of preoperative IV antibiotics and general anesthesia LMA was induced. Positioned in modified lithotomy, prepped and draped in the usual sterile fashion. An operative time out was performed confirming the patient's identity, procedure, laterality and safety checks. The patient was positioned with the Siemens Modularis Lithostar lithotripter head on the left flank. The stone was triangulated using fluoroscopy. A total of 3000 shocks were provided and the stones was seen to fragment well. Meanwhile a rigid cystoscope was inserted per urethra. Cystoscopy with 30 degree lens was performed without evidence of bladder tumors, lesions or foreign bodies. A guidewire was inserted into the left ureteral orifice up to the kidney. A 4.8Fr x 22-30 cm JJ left ureteral stent was placed over the wire with curl in the upper pole and bladder, wire was removed. The bladder was drained and cystoscope removed. The procedure was concluded and patient was awakened from anesthesia in stable condition. The patient tolerated the procedure well without complications. Plan: Discharge home with strainer and tamsulosin. Follow up in 2-3 weeks with [facility]. Will call to determine next steps of repeat L ESWL if responded well vs left ureteroscopy, laser lithotripsy/stone extraction, stent exchange
== END 2023-05-24 14:51 | disposition home or self-care (01) ==
PROVIDERS: Visit Provider Urology
PROC: (CPT 50590; principal; 2023-05-24 12:50)
DX: N20.0 Calculus of kidney (principal); I10 Essential (primary) hypertension; I25.10 Atherosclerotic heart disease of native coronary artery without angina pectoris; E78.5 Hyperlipidemia, unspecified; Z87.442 Personal history of urinary calculi; Z87.440 Personal history of urinary (tract) infections; Z79.82 Long term (current) use of aspirin; Z79.02 Long term (current) use of antithrombotics/antiplatelets; R35.1 Nocturia; F17.210 Nicotine dependence, cigarettes, uncomplicated; R32 Unspecified urinary incontinence; N95.2 Postmenopausal atrophic vaginitis; R39.9 Unspecified symptoms and signs involving the genitourinary system; N81.10 Cystocele, unspecified
CPT/HCPCS: 50590; 52332; 36415; 74018; C1874; J2704

== ENCOUNTER 2023-06-27 14:38 | Outpatient (OUT) | payer MEDICARE, SELFPAY ==
--- NOTE | 2023-06-27 14:47 | XR_ITS ---
The [address] [address] Patient Name: SLY COY MRN: [id number] date: 1955 Sex: F Assigned Patient Location: [facility] Current Patient Location: Accession/Order Number: [id number] Exam Date: 06/27/2023 15:00 Report Date: 06/28/2023 09:16 At the request of: LIYAH DENNY Procedure: XR abdomen 1V EXAM: XR abdomen 1V HISTORY: kidney stones COMPARISON: None. TECHNIQUE: AP view of the abdomen. FINDINGS: Nonobstructive bowel gas pattern is noted. There are left renal calculi, largest measuring up to 6 mm. Indwelling left double-J ureteral stent. The right renal calculi, largest measuring up to 5 mm. The osseous structures are intact. XR/XR abdomen 1V IMPRESSION: Nonobstructive bowel gas pattern. Left nephrolithiasis with indwelling double-J ureteral stent. Right nephrolithiasis. Electronically authenticated by: SASCHA GONZALEZ Date: 06/28/2023 09:16
== END 2023-06-27 14:39 | disposition home or self-care (01) ==
LOC: RAD 14:40
PROVIDERS: Visit Provider Urology
DX: N20.0 Calculus of kidney (principal)
CPT/HCPCS: 74018

== ENCOUNTER 2023-07-01 12:09 | Outpatient (OUT) | payer MEDICARE, SELFPAY ==
--- OUTSIDE RECORDS SUMMARY | 2023-07-01 12:13 | XMS_ITS | CCD ---
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 Name Role Phone Nadira Modi APRN, CNP Primary Care Provider JUVENAL HARRELL Referring Unavailable NADIRA MARTÍNEZ Primary Care Unavailable [facility] Primary Care Unava ilable MIKHAIL GRANT Consulting Unavailable MIKHAIL GRANT Admitting Unavailable MIKHAIL GRANT Attending Unavailable NADIRA MARTÍNEZ Admitting Unavailable NADIRA MARTÍNEZ Attending Unavailable [facility] Primary Care Unava ilable MARILYNN, NADIRA Consulting [...] Medication Allergies] Propensity to adverse reactions (disorder) [facility] Repository Medications Current Medications Medication Drug Class(es) [...] 3 Episodic Other aftercare (1 source) Other alf (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 therapy; Translations: [OTH ALF CURRENT DRUG THERAPY] Onset: 3 Episodic Other [...] Results Test Name Value Interpretation Reference Range Facility [facility] 05-30-2023 [facility] - MIS [id number] #1.00TIFF [facility] Operative Reporton 3 Operative Report [id number]# 1.00TIFF [facility] 05-24-2023 RAD - MIS [id number] #1.00TIFF [facility] Consultation Noteon 05-22-20 23 Consultation Note [id number]# 1.00TIFF [facility] Lab Reportson 05-18-2023 Lab Reports [id number] #1.00TIFF [facility] Lab Reports [id number] #1.00TIFF [facility] Lab Reports [id number] #1.00TIFF [facility] Lab Reports [id number] #1.00TIFF Normal [facility] Consultation Noteon 05-15-20 Consultation Note [id number] #1.00TIFF Normal [facility] ED Note-Physicianon 05-12-20 ED Note-Physician [id number] #1.00TIFF [facility] Formson 05-11-2023 Forms [id number] #1.00TIFF [facility] Ambulatory Visit Summaryon 1 07-10-2022 Ambulatory Visit Summary SLY COY :1955 Visit Date:05/10/2023 Ambulatory Visit Instructions Your Diagnosis Kidney stones Vaginal atrophy UTI symptoms Personal history of kidney stones Female bladder prolapse Tests Performed Urnls Dip Stick Auto w/o Microscopy POC 63970 Your Care Team Attending Physician - Elizabeth [...] Follow Up with Oren BOB, Elizabeth Brown, JOCELYN, URO When: Comments: Sched Lt ESWL/Stent Where: Medications What How Much When Instructions New estradiol topical (Estrace 0.1 mg/ g Cream) See instructions Refills: 3 apply pea size amount to urethra/ inner vagina 3x/ week x 1 month, then 2x/ week for maintainence Pickup at [facility] Unchanged alprazolam By Mouth Contact prescribing [...] physician if questions or concerns Pharmacy Information [facility] [address]: [address], [place] [id number] [phone] Test Results Urnls Dip Stick Auto w/o Microscopy POC 50939 (05/10/2023) Bilirubin Urine Dipstick - Negative Blood Urine Dipstick - 2+ Moderate Glucose Urine Dipstick - Negative Ketones Urine Dipstick - Negative Leukocytes Urine Dipstick - Negative Nitrite Urine Dipstick - Negative Protein Urine Dipstick - Negative Specific [place] Urine Dipstick - 1.025 Urine Appearance Urine [...] ? 8 oz (237 mL) of milk, calcium-fortifiednon -dairy milk, and calcium-fortifiedfru it juice. Calcium-fortified means that calcium has been [...] for you. S (more content not included)... [facility] Formson 05-10-2023 Forms [id number] #1.00TIFF [facility] Insurance Correspondenceon 07-10-2022 Insurance Correspondence [id number]#1.00TIFF [facility] Patient Educationon 05-10-20 Patient Education Nephrology [...] ? 8 oz (237 mL) of milk, calcium-fortifiednon -dairy milk, and calcium-fortifiedfru it juice. Calcium-fortified means that calcium has been [...] Spinach (cooked), rhubarb, beets, sweet potatoes, and Liberian chard. ? Peanuts. ? Potato chips, hungarian fries, and baked potatoes with skin on. ? Nuts and nut products. ? Chocolate. ? If you regularly take a diuretic medicine, make sure to eat at least 1 or 2 servings of fruits or vegetables that are high in potassium each day. These include: ? Avocado. ? Banana. ? Price, prune, carrot, or tomato juice. ? Baked [...] fish oil, or vitamin B6. ? Take lthf-dmp-nwxrcoj and prescription medicines only as told by your health care provider. These include supplements. What foods should I limit? Limit your in (more content not included)... Normal [facility] Screenson 05-10-2023 Screens [id number] #1.00TIFF Normal [facility] Urology Office/Clinic Noteon 05-10-2023 Urology Office/Clinic Note Chief Complaint kidney stones HPI Staff Pt is a new pt. Last seen in our office 02/23/09 by PRW due to Kidney Stones. S/P Lt ESWL 03/05/09. recently patient has been seeing Dr De Jesus in [place] but his practice no longer accepts pt's [...] ESWL, stag (more content not included)... Normal [facility] Comment on above: Result Comment: Elec tronically Signed By: Oren BOB, Elizabeth Brown\.br\Date and Time Signed: 05/10/23 12:16 EDT\.br\Electronically Co-Signed By: Shahana Mazariegos.br\Date and Time Co-Signed: 05/10/23 10:28 EDT RAD - MISCon 03-27-2023 RAD - MISC [id number] 1.00CD:127 Normal [facility] Basic Metabolic Profon 01-23 Anion gap [Moles/Vol] 10 mmol/L Normal 9-17 [facility] Comment on above: Performed By: #### B MP, CBC #### [facility] [address] [place] [address] Legal Research Analyst: Brooks Almazan MD BUN/CRE Ratio 30 High 9-20 [facility] Comment on above: Performed By: #### B MP, CBC #### [facility] [place] [address] Legal Research Analyst: Brooks Almazan MD Calcium [Mass/Vol] 8.9 mg/dL Normal 8.6-10.4 [facility] Comment on above: Performed By: #### B MP, CBC #### [facility] [address] [place] [address]. [place] [address] Legal Research Analyst: Brooks Almazan MD Chloride [Moles/Vol] 104 mmol/L Normal 98-107 [facility] Comment on above: Performed By: #### B GAL, CBC #### [facility] [address] [place] [address]. [place] [address] Legal Research Analyst: Brooks Amlazan MD CO2 [Moles/Vol] 27 mmol/L Normal 20-31 [facility] Comment on above: Performed By: #### B GAL, CBC #### [facility] [place] [address] Legal Research Analyst: Brooks Almazan MD Creatinine [Mass/Vol] 0.5 mg/dL Normal 0.5-0.9 [facility] Comment on above: Performed By: #### B MP, CBC #### [facility] [place] [address] Legal Research Analyst: Brooks Almazan MD GFR/1.73 sq M.predicted among non-blacks MDRD (S/P/Bld) [Vol rate/Area] mL/min/{1.73_m2} Normal >60 [facility] Comment on above: Result Comment: These results [...] Performed By: #### B MP, CBC #### [facility] [address] [place] [address] Legal Research Analyst: Brooks Almazan MD Glucose [Mass/Vol] 97 mg/dL Normal 70-99 [facility] Comment on above: Performed By: #### B MP, CBC #### [facility] [address] [place] [address] Legal Research Analyst: Brooks Almazan MD Potassium [Moles/Vol] 4.8 mmol/L Normal 3.7-5.3 [facility] Comment on above: Result Comment: SPEC IMEN SLIGHTLY HEMOLYZED, RESULTS MAY BE ADVERSELY AFFECTED. Performed By: #### B MP, CBC #### [facility] [place] [address] Legal Research Analyst: Brooks Almazan MD Sodium [Moles/Vol] 141 mmol/L Normal 135-144 [facility] Comment on above: Performed By: #### B MP, CBC #### [facility] [address] [place] [address]. [place] [address] Legal Research Analyst: Brooks Almazan MD Urea nitrogen [Mass/Vol] 15 mg/dL Normal 8-23 [facility] Comment on above: Performed By: #### B MP, CBC #### [facility] [address] [place] [address] Legal Research Analyst: Brooks Almazan MD CBCon 01-23-2023 Erythrocyte distribution width (RBC) [Ratio] 12.4 % Normal 11.8-14.4 [facility] Comment on above: Performed By: #### B MP, CBC #### [facility] [place] [address] Legal Research Analyst: Brooks Almazan MD Hematocrit (Bld) [Volume fraction] 40.3 % Normal 36.3-47.1 [facility] Comment on above: Performed By: #### B MP, CBC #### [facility] [address] [place] [address]. [place] [address] Legal Research Analyst: Brooks Almazan MD Hemoglobin (Bld) [Mass/Vol] 13.1 g/dL Normal 11.9-15.1 [facility] Comment on above: Performed By: #### B MP, CBC #### [facility] [address] [place] [address]. [place] [address] Legal Research Analyst: Brooks Almazan MD MCH (RBC) [Entitic mass] 30.0 pg Normal 25.2-33.5 [facility] Comment on above: Performed By: #### B MP, CBC #### [facility] [address] [place] [address]. [place] [address] Legal Research Analyst: Brooks Almazan MD MCHC (RBC) [Mass/Vol] 32.5 g/dL Normal 28.4-34.8 [facility] Comment on above: Performed By: #### B MP, CBC #### [facility] [address] [place] [address] Legal Research Analyst: Brooks Almazan MD MCV (RBC) [Entitic vol] 92.4 fL Normal 82.6-102.9 [facility] Comment on above: Performed By: #### B MP, CBC #### [facility] [address] [place] [address]. [place] [address] Legal Research Analyst: Brooks Almazan MD NRBC Automated 0.0 per 100 WBC Normal 0.0 [facility] Comment on above: Performed By: #### B MP, CBC #### [facility] [place] [address] Legal Research Analyst: Brooks Almazan MD Platelet mean volume (Bld) [Entitic vol] 9.3 fL Normal 8.1-13.5 [facility] Comment on above: Performed By: #### B MP, CBC #### [facility] [place] [address] Legal Research Analyst: Brooks Almazan MD Platelets (Bld) [#/Vol] 234 10*3/uL Normal 138-453 [facility] Comment on above: Performed By: #### B MP, CBC #### [facility] [address] [place] [address]. [place] [address] Legal Research Analyst: Brooks Almazan MD RBC (Bld) [#/Vol] 4.36 10*6/uL Normal 3.95-5.11 [facility] Comment on above: Performed By: #### B MP, CBC #### [facility] [place] [address] Legal Research Analyst: Brooks Almazan MD WBC (Bld) [#/Vol] 7.1 10*3/uL Normal 3.5-11.3 [facility] Comment on above: Performed By: #### B MP, CBC #### [facility] [place] [address] Legal Research Analyst: Brooks Almazan MD CBC AUTO DIFFon 11-27-2021 BASO # 0.1 103/ul Normal 0.0-0.1 [facility] Comment on above: Performed By: #### C BC #### [facility] [address] [place], [place] [address] Dr. Liliam Sanderson Basophils/100 WBC (Bld) 0.7 % Normal 0.2-2.0 [facility] Comment on above: Performed By: #### C BC #### [facility] [address] [place] [address] Dr. Liliam Sanderson EO # 0.2 103/ul Normal 0.0-0.7 [facility] Comment on above: Performed By: #### C BC #### [facility] [address] [place] [address] Dr. Liliam Sanderson Eosinophils/100 WBC (Bld) 2.2 % Normal 0.9-7.0 [facility] Comment on above: Performed By: #### C BC #### [facility] [address] [place] [address] Dr. Liliam Sanderson Erythrocyte distribution width (RBC) [Ratio] 12.0 % Normal 11.0-15.0 [facility] Comment on above: Performed By: #### C BC #### [facility] [address] [place] [address] Dr. Liliam Sanderson Hematocrit (Bld) [Volume fraction] 40.6 % Normal 36.0-48.0 [facility] Comment on above: Performed By: #### C BC #### [facility] [address] [place] [address] Dr. Liliam Sanderson Hemoglobin (Bld) [Mass/Vol] 13.3 g/dL Normal 12.0-16.0 [facility] Comment on above: Performed By: #### C BC #### [facility] [address] [place] [address] Dr. Liliam Sanderson IG # 0.03 10e3/ul Normal 0.00-0.03 [facility] Comment on above: Performed By: #### C BC #### [facility] [address] [place] [address] Dr. Liliam Sanderson IG % 0.3 % Normal 0.0-0.5 [facility] Comment on above: Performed By: #### C BC #### [facility] [address] [place] [address] Dr. Liliam Sanderson LYMPH # 3.2 103/ul Normal 1.2-3.8 [facility] Comment on above: Performed By: #### C BC #### [facility] [address] [place] [address] Dr. Liliam Sanderson Lymphocytes/100 WBC (Bld) 30.7 % Normal 20.5-60.0 [facility] Comment on above: Performed By: #### C BC #### [facility] [address] [place] [address] Dr. Liliam Sanderson MANUAL DIFF REQ NO Normal [facility] [place] Comment on above: Performed By: #### C BC #### [facility] [address] [place] [address] Dr. Liliam Sanderson MCH (RBC) [Entitic mass] 30.2 pg Normal 26.7-34.0 [facility] Comment on above: Performed By: #### C BC #### [facility] [address] [place] [address] Dr. Liliam Sanderson MCHC (RBC) [Mass/Vol] 32.8 g/dL Normal 29.9-35.2 [facility] Comment on above: Performed By: #### C BC #### [facility] [address] [place] [address] Dr. Liliam Sanderson MCV (RBC) [Entitic vol] 92.1 fL Normal 81.0-99.0 [facility] Comment on above: Performed By: #### C BC #### [facility] [address] [place] [address] Dr. Liliam Sanderson MONO # 0.8 103/ul Normal 0.3-0.8 [facility] Comment on above: Performed By: #### C BC #### [facility] [address] [place] [address] Dr. Liliam Sanderson Monocytes/100 WBC (Bld) 7.5 % Normal 1.7-12.0 [facility] Comment on above: Performed By: #### C BC #### [facility] [address] [place] [address] Dr. Liliam Sanderson NEUT # 6.1 103/ul Normal 1.4-6.5 [facility] Comment on above: Performed By: #### C BC #### [facility] [address] [place] [address] Dr. Liliam Sanderson Neutrophils/100 WBC (Bld) 58.6 % Normal 43.0-75.0 [facility] Comment on above: Performed By: #### C BC #### [facility] [address] [place] [address] Dr. Liliam Sanderson Platelet mean volume (Bld) [Entitic vol] 8.8 fL Critically low 9.5-13.5 [facility] Comment on above: Performed By: #### C BC #### [facility] [address] [place] [address] Dr. Liliam Sanderson PLT 264 103/ul Normal 150-450 [facility] Comment on above: Performed By: #### C BC #### [facility] [address] [place] [address] Dr. Liliam Sanderson RBC 4.41 106/ul Normal 4.20-5.40 [facility] Comment on above: Performed By: #### C BC #### [facility] [address] [place] [address] Dr. Liliam Sanderson WBC 10.4 103/ul Normal 4.0-11.0 [facility] Comment on above: Performed By: #### C BC #### [facility] [address] [place] [address] Dr. Liliam Sanderson LIPID PROFILEon 11-27-2021 CHOL-HDL RATIO NORM SEE BELOW Normal [facility] Comment on above: Result Comment: 3.3 - 4.4 LOW RISK 4.4 - 7.1 AVERAGE RISK 7.1 - 11.0 MODERATE RISK >11.0 HIGH RISK Performed By: #### C MP, LIPID #### [facility] [address] [place] [address] Dr. Liliam Sanderson Cholesterol [Mass/Vol] 204 mg/dL Critically high <=200 [facility] Comment on above: Performed By: #### C MP, LIPID #### [facility] [address] [place] [address] Dr. Liliam Sanderson Cholesterol in HDL [Mass/Vol] 46 mg/dL Normal 40-60 [facility] Comment on above: Performed By: #### C MP, LIPID #### [facility] [address] [address] [address] Liliam Sanderson Cholesterol in LDL [Mass/Vol] 125.4 mg/dL Normal [facility] Comment on above: Performed By: #### C MP, LIPID #### [facility] [address] [address] [address] Liliam Sanderson Cholesterol.total/Chol esterol in HDL [Mass ratio] 4.4 {ratio} Normal [facility] Comment on above: Performed By: #### C MP, LIPID #### [facility] [address] [address] [address] Liliam Sanderson HDL NORMAL > or = 60 mg/dl - LOW CARDIOVASCULAR RISK <40 mg/dl - HIGH CARDIOVASCULAR RISK Normal [facility] Comment on above: Performed By: #### C MP, LIPID #### [facility] [address] [place] [address] Dr. Liliam Sanderson LDL CALC NORMAL SEE BELOW Normal [facility] [place] Comment on above: Result Comment: <100 mg/dl OPTIMAL 100 - 129 mg/dl NEAR OR ABOVE OPTIMAL 130 - 159 mg/dl BORDERLINE HIGH 160 - 189 mg/dl HIGH >190 mg/dl VERY HIGH Performed By: #### C MP, LIPID #### [facility] [address] [address] [address] Liliam Sanderson Triglyceride [Mass/Vol] 163 mg/dL Critically high <=150 [facility] Comment on above: Performed By: #### C MP, LIPID #### [facility] [address] [address] [address] Liliam Sanderson VLDL CALC 32.6 mg/dL Normal [facility] Comment on above: Performed By: #### C MP, LIPID #### [facility] [address] [address] [address] Liliam Sanderson PROF 14(COMP METB)on 022 Albumin [Mass/Vol] 4.1 g/dL Normal 3.4-5.0 [facility] Comment on above: Performed By: #### C MP, LIPID #### [facility] [address] [address] [address] Liliam Sanderson Albumin/Globulin [Mass ratio] 1.2 {ratio} Normal [facility] Comment on above: Performed By: #### C MP, LIPID #### [facility] [address] [address] [address] Liliam Sanderson ALP [Catalytic activity/Vol] 61 U/L Normal 46-116 [facility] Comment on above: Performed By: #### C MP, LIPID #### [facility] [address] [address] [address] Liliam Sanderson ALT [Catalytic activity/Vol] 20 U/L Normal 14-59 [facility] Comment on above: Performed By: #### C MP, LIPID #### [facility] [address] [address] [address] Liliam Sanderson Anion gap [Moles/Vol] 11.4 mmol/L Normal [facility] Comment on above: Performed By: #### C MP, LIPID #### [facility] [address] [address] [address] Liliam Sanderson AST [Catalytic activity/Vol] 12 U/L Critically low 15-37 [facility] Comment on above: Performed By: #### C MP, LIPID #### [facility] [address] [address] [address] Liliam Sanderson Bilirubin [Mass/Vol] 0.5 mg/dL Normal 0.2-1.0 [facility] Comment on above: Performed By: #### C MP, LIPID #### [facility] [address] [address] [address] Liliam Sanderson Calcium [Mass/Vol] 8.9 mg/dL Normal 8.5-10.1 [facility] Comment on above: Performed By: #### C MP, LIPID #### [facility] [address] [address] [address] Liliam Sanderson Chloride [Moles/Vol] 102 mmol/L Normal 98-107 [facility] Comment on above: Performed By: #### C MP, LIPID #### [facility] [address] [address] [address] Liliam Sanderson CO2 [Moles/Vol] 28.3 mmol/L Normal 21.0-32.0 [facility] Comment on above: Performed By: #### C MP, LIPID #### [facility] [address] [address] [address] Liliam Sanderson Creatinine [Mass/Vol] 0.66 mg/dL Normal 0.55-1.02 [facility] Comment on above: Performed By: #### C MP, LIPID #### [facility] [address] [address] [address] Liliam Sanderson EGFR-AF UKRAINIAN >60 Normal >=60 [facility] Comment on above: Performed By: #### C MP, LIPID #### [facility] [address] [address] [address] Liliam Sanderson EGFR-NON AF UKRAINIAN >60 Normal >=60 [facility] Comment on above: Performed By: #### C MP, LIPID #### [facility] [address] [address] [address] Liliam Sanderson Globulin (S) [Mass/Vol] 3.4 g/dL Normal [facility] Comment on above: Performed By: #### C MP, LIPID #### [facility] [address] [address] [address] Liliam Sanderson Glucose [Mass/Vol] 100 mg/dL Normal 74-[address] [facility] Comment on above: Performed By: #### C MP, LIPID #### [facility] [address] [address] [address] Liliam Sanderson Potassium [Moles/Vol] 3.7 mmol/L Normal 3.5-5.1 [facility] Comment on above: Performed By: #### C MP, LIPID #### [facility] [address] [address] [address] Liliam Sanderson Protein [Mass/Vol] 7.5 g/dL Normal 6.4-8.[address] [facility] Comment on above: Performed By: #### C MP, LIPID #### [facility] [address] [place], [place] [address] Dr. Liliam Sanderson Sodium [Moles/Vol] 138 mmol/L Normal 136-145 [facility] Comment on above: Performed By: #### C MP, LIPID #### [facility] [address] [place], [place] [address] Dr. Liliam Sanderson Urea nitrogen [Mass/Vol] 14.0 mg/dL Normal 7.0-18.0 [facility] Comment on above: Performed By: #### C MP, LIPID #### [facility] [address] [address] [address] Liliam Sanderson Urea nitrogen/Creatinine [Mass ratio] 21.2 mg/mg Normal [facility] Comment on above: Performed By: #### C MP, LIPID #### [facility] [address] [address] [address] Liliam Sanderson Vital Signs Date Time Vital Sign Value Performing Clinician Facility 05-10-2023 09:48-0400 Blood Pressure Location Elizabeth [facility] 05-10-2023 09:48-0400 Diastolic blood pressure 67 mm[Hg] Elizabeth Lue [facility] 05-10-2023 09:48-0400 Heart rate 73 /min Elizabeth Lue [facility] 05-10-2023 09:48-0400 Respiratory rate 16 /min Elizabeth Lue [facility] 05-10-2023 09:48-0400 Systolic blood pressure 101 mm[Hg] Elizabeth Lue [facility] 02-14-2023 14:00-0400 Body height 153.67 cm Himanshu Borjas Other [facility] Other 02-14-2023 14:00-0400 Body mass index (BMI) [Ratio] 24.78 kg/m2 Himanshu Scovanner Other [employer] Other 02-14-2023 14:00-0400 Body weight 58.51 kg Himanshu Scovanner Other [employer] Other 02-14-2023 14:00-0400 Diastolic blood pressure 84 mm[Hg] Himanshu Scovanner Other [employer] Other 02-14-2023 14:00-0400 Systolic blood pressure 142 mm[Hg] Himanshu Scovanner Other [employer] Other 11-15-2022 16:30-0400 Body height 153.67 cm Himanshu Scovanner Other [employer] Other 11-15-2022 16:30-0400 Body mass index (BMI) [Ratio] 26.27 kg/m2 Himanshu Scovanner Other [employer] Other 11-15-2022 16:30-0400 Body weight 62.05 kg Himanshu Scovanner Other [employer] Other 11-15-2022 16:30-0400 Diastolic blood pressure 76 mm[Hg] Himanshu Scovanner Other [employer] Other 11-15-2022 16:30-0400 Systolic blood pressure 128 mm[Hg] Himanshu Scovanner Other [employer] Other Encounters Encounter Date Encounter Type Care Provider Facility Start: 05-24-2023 End: 05-25-2023 ambulatory Elizabeth Lott Facility:CD:[id number] Start: 05-10-2023 End: 05-11-2023 ambulatory Elizabeth Lott Facility:[facility] Start: 05-10-2023 End: 05-10-2023 Patient encounter procedure Elizabeth Lott [facility] Start: 02-14-2023 End: 02-14-2023 ambulatory Himanshu Borjas Other [employer] Other Start: 02-14-2023 Office outpatient visit 15 minutes Himanshu Borjas [facility] Start: 02-01-2023 ambulatory Elizabeth Lott Facility:[facility] Start: 01-23-2023 End: 01-23-2023 [facility] Start: 12-20-2022 End: 12-20-2022 ambulatory Fernando Castellon Facility:[facility] Start: 11-15-2022 End: 11-15-2022 ambulatory Himanshu Borjas Other [employer] Other Start: 11-15-2022 Office outpatient ne w 30 minutes Himanshu Scovangurpreet [facility] Start: 09-30-2022 End: 09-30-2022 ambulatory [facility] Facility:[facility] Start: 06-21-2022 End: 06-24-[address] 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 Elizabeth Oren Start: 01-22-2009 Extracorporeal shock wave lithotripsy of [...] Visi t (AWV) Annual Wellness Visit (AWV) [facility] [employer] [facility] Start: 02-07-2022 Influenza vaccination Flu vaccine (# 1) [facility] Start: 2020 Pneumococcal 65+ yea rs Vaccine (1 - PCV) Pneumococcal 65+ years Vaccine (1 - PCV) [facility] Start: 2010 Screening for osteoporosis DEXA (modify frequency per FRAX score) [facility] Start: 2005 Screening for malign ant neoplasm of breast Breast cancer screen [facility] Start: 2005 Shingles vaccine (1 of 2) Shingles vaccine (1 of 2) [facility] Start: 2000 Screening for malign ant neoplasm of colon [facility] Start: 1995 Lipid panel Lipids [facility] Start: 1974 DTaP/Tdap/Td vaccine (1 - Tdap) DTaP/Tdap/Td vaccine (1 - Tdap) [facility] Start: 1973 Hepatitis C screening Hepatitis C sc reen [facility] Start: 1967 Depression Screen Depression Screen [facility] Start: 03-06-1956 COVID-19 Vaccine (#1) COVID-19 Vacci ne (#1) [employer] End: 06-21-2022 CTA CORON EJECT FRAC WALL MOTION CTA CORON EJECT FRAC WALL MOTION Imaging Routine Chest pain, unspecified type Dizziness Abnormal stress ECG 1 Occurrences starting 06/21/2022 until 06/21/2022 [employer] Work Phone: Comment on above: 1 Occurrences starti ng 06/21/2022 until 06/21/2022 Payers Date Payer Category Payer Self-pay 2022 Private Health Insurance [id number] 1959 Medicare [id number] 1955 Unknown [id number] [id number] [id number] 1955 Unknown [id number] 2.16.84 [id number] 1955 Unknown [id number] 2.16.84 [id number] 1955 Unknown [id number] 2.16.8 [id number] 1955 Unknown [id number] 2.16.8 [id number] 1955 Unknown [id number] 2.16.8 [id number] Unknown [id number] 2.16.8 [id number] Social History Date Type Detail Facility Tobacco smoking status PAIS Tobacco smoking consumption unknown [employer] Phone: Start: 1955 Sex Assigned At Not on file B ON [employer] Phone: Sex Assigned At [facility] Start: 05-10-2023 Tobacco smoking status Light tobacco smoker (finding) [facility] Functional Status Date Assessment Result Facility 05-10-2023 Functional Status N/A [facility] Discharge instructions 05-10-2023 Note Date & [...] include: ?8 oz (237 mL) of milk, lzvraqz-xibqxnfldkqs-dfpmj milk, and calcium-fortifiedfruit juice. Calcium-fortified means that [...] ?Spinach (cooked), rhubarb, beets, sweet potatoes, and Liberian chard. ?Peanuts. ?Potato chips, hungarian fries, and baked potatoes with skin on. ?Nuts and nut products. ?Chocolate. If you regularly take a diuretic medicine, make sure to eat at least 1 or 2 servings of fruits or vegetables that are high in potassium each day. These include: ?Avocado. ?Banana. ?Price, prune, carrot, or tomato juice. ?Baked potato. [...] magnesium, fish oil, or vitamin B6. Take aqhv-wdp-bqmpukd and prescription medicines only as told by [...] Casseroles. Pizza. Lasagna. Frozen meals. Potato chips. Citizen Of [place] fries. The items listed above may not [...] provider. Document Revised: 03/07/2022 Document Reviewed: 03/07/2022 [employer] Patient Education 2022 [employer] Follow Up Care 02/01/2023 14:06:36 With:Oren BOB, Elizabeth Brown URKevyn, URO Address: When: Unknown Comments:Sched Lt ESWL/Stent [facility] [employer] Evaluation note 02-14-2023 Note Date & Type Note Facility 02-14-2023 Evaluation note Encounter Date Diagnosis Assessment Notes Feb, Hiatal hernia (ICD-10 - K44.9) Pt is taking omeprazole. Pt states this medication is working for her. Pt states she still some times gets acid reflux, but overall, she is doing well. Pt RTO in 6 months Feb, Esophageal stricture (ICD-10 - K22.2) [employer] Other Evaluation note 11-15-2022 Note Date & Type Note Facility 11-15-2022 Evaluation note Encounter Date Diagnosis Assessment Notes November, GERD (gastroesophag eal reflux disease) (ICD-10 - K21.9) we will obtain a records release to get records from [facility] It is recommened that patient get EGD and she argees to have this done Patient has family history of esophageal cancer November, Family history of esophageal cancer (ICD-10 - Z80.0) [employer] Other Evaluation + Plan note Note Date & Type Note Facility Evaluation + Plan note No data available for this section [facility] [employer] Evaluation note Note Date & Type Note Facility Evaluation note Diagnosis Chest pain, unspecified type Dizziness Dizziness and giddiness Abnormal stress ECG Other nonspecific abnormal cardiovascular system function study documented in this encounter [facility] Work Phone: History general Narrative - Reported Note Date & Type Note Facility History general Narrative - Reported Type Medical History kidney stones Medical History hypertension Medical History gastritis Medical History Hiatal hernia Surgical History kidney stone Surgical History fx nose Surgical History ablasion Surgical History tubal ligation [facility] Other History general Narrative - Reported Note Date & Type Note Facility History general Narrative - Reported Type Medical History kidney stones Medical History hypertension Medical History gastritis Medical History Hiatal hernia Surgical History kidney stone Surgical History fx nose Surgical History ablasion Surgical History tubal ligation Hospitalization History Heart procedure [facility] Other Progress note Note Date & Type Note Facility Progress note No data available for this section [facility] [place] Reason for Referral Specialty Diagnoses / Procedures Referred By Milton jimenez Referred To Contact Radiology Diagnoses Chest pain, unspecified type Dizziness Abnormal stress ECG R07.9 (ICD-10-CM) - Chest pain, unspecified type Procedures CTA CORON EJECT FRAC WALL MOTION CHG CT ANGIO HRT CORNRY ART/BYPASS GRFTS CONTRST 3D POST [id number] - CHG CT ANGIO HRT CORNRY ART/BYPASS GRFTS CONTRST 3D POST Juvenal Harrell MD [address] [place] [address] Referral ID Status Reason Start Date Expiration Date V isits Requested Visits Authorized [id number] Authorized 06/21/2022 05/07/2023 1 1 Summary Purpose [...] content) Specialty Diagnoses / Procedures Referred By Milton jimenez Referred To Contact Radiology Diagnoses Chest pain, unspecified type Dizziness Abnormal stress ECG R07.9 (ICD-10-CM) - Chest pain, unspecified type Procedures CTA CORON EJECT FRAC WALL MOTION CHG CT ANGIO HRT CORNRY ART/BYPASS GRFTS CONTRST 3D POST [id number] - CHG CT ANGIO HRT CORNRY ART/BYPASS GRFTS CONTRST 3D POST Juvenal Harrell MD [address] [place] [address] Referral ID Status Reason Start Date Expiration Date V isits Requested Visits Authorized [id number] Authorized 06/21/2022 05/07/2023 1 1 Care Teams (unrecognized sec tion and content) 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 DATE CREATED AUTHOR AUTHOR'S ORGANIZ ATION 01/23/2023 [facility] DATE CREATED AUTHOR AUTHOR'S ORGANIZ ATION 06/08/2023 [facility] FOR RECORDS PERTAINING TO PATIENTS WHO ARE [...] BE BASED ON THE PRIMARY CLINICAL RECORDS. [employer] provides no warranty or guarantee of the accuracy or completeness of information in this document.
[2023-07-01 12:45] LABS: Chol HDL Ratio 4.1; Cholesterol 205 mg/dL (<=200); HDL Cholesterol 50 mg/dL (40-60); Triglycerides 161 mg/dL (<=150); VLDL CHOLESTEROL 32.2 mg/dL
== END 2023-07-01 12:10 | disposition home or self-care (01) ==
LOC: LAB 12:10
DX: E78.5 Hyperlipidemia, unspecified (principal); I10 Essential (primary) hypertension
CPT/HCPCS: 36415; 80061; 84443

== ENCOUNTER 2023-07-06 12:29 | Outpatient (OUT) | payer MEDICARE, SELFPAY ==
--- OUTSIDE RECORDS SUMMARY | 2023-07-06 12:34 | XMS_ITS | CCD ---
Author Name Unknown Address [address] [facility] [address] [place] [address] Organization [facility] Care Team Providers Care Feed Miller Name Role Phone Nadira Modi APRN, CNP Primary Care Provider JUVENAL HARRELL Referring Unavailable NADIRA MARTÍNEZ Primary Care Unavailable [facility] Care Unava ilable MIKHAIL GRANT Consulting Unavailable MIKHAIL GRANT Admitting Unavailable MIKHAIL GRANT Attending Unavailable NADIRA MARTÍNEZ Admitting Unavailable NADIRA MARTÍNEZ Attending Unavailable [facility] Primary Care Unava ilable MARILYNN, NADIRA Consulting Unavailable Himanshu Borjas Unavailable Fernando Castellon Attending Unavailable Fernando Castellon Admitting Unavailable Nadira Martínez Primary Care Unavailable JAYA SIMON Admitting Unavailable JAYA SIMON Attending Unavailable JAYA SIMON Referring Unavailable NADIRA MARTÍNEZ Primary Care Unavailable NADIRA MARTÍNEZ Primary Care Physician Nadira Perdue Primary Care Provider Elizabeth Lott Attending Unavailable NADIRA MARTÍNEZ Referring Unavailable Elizabeth Lott Attending Unavailable Elizabeth Lott Attending Unavailable Allergies Allergy Classification Reported Allergen(s) Allergy Type Date of Onset Reaction(s) Facility (1 source) No Known Medication Allergies; Translations: [No Known Medication Allergies] Propensity to adverse reactions (disorder) [facility] Repository Medications Current Medications Medication Drug Class(es) Dates Sig (Normalized) Sig (Original) ALPRAZolam (1 source) Benzodiazepine Start: 05-10-2023 alprazolam Oral, Refills(s) 0 Start Date: 05/10/23 Status: Ordered aspirin 81 mg oral capsule (2 sources) Platelet Aggregation Inhibitor, Nonsteroidal Anti-inflammatory Drug Start: 05-10-2023 take 1 mg by mouth every twenty-four hours aspirin 81 mg oral capsule mg cap(s), Oral, q24hr, Refills(s) 0 Start Date: 05/10/23 Status: Ordered Start: 01-23-2023 take 1 tablet by sekou th in the morning aspirin 81 mg Take 1 tablet (81 mg total) by mouth in the morning. 0 01/23/2023 Active citalopram 20 mg oral tablet (4 sources) Serotonin Reuptake Inhibitor Start: 05-10-2023 take 1 mg by mouth once daily citalopram 20 mg Tab mg tab(s), Oral, Daily, Refills(s) 0 Start Date: 05/10/23 Status: Ordered clopidogrel 75 mg oral tablet (3 sources) P2Y12 Platelet Inhibitor Start: 01-23-2023 take 1 mg by mouth once daily [...] Weight Dosing Start Date: 05/10/23 Status: Ordered 24 hr isosorbide mononitrate 30 mg extended release oral tablet (2 sources) Nitrate Vasodilator Start: 07-06-2023 take 1 tablet by mouth once daily isosorbide mononitrate (IMDUR) 30 mg 24 hr tablet TAKE 1 TABLET (30 MG TOTAL) BY MOUTH DAILY. 90 tablet 3 07/06/2023 Active Start: 01-17-2023 End: 07-06-2023 take 1 tablet by mouth once daily isosorbide mononitrate (IMDUR) 30 mg 24 hr tablet Take 1 tablet (30 mg total) by mouth daily. 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 90 tablet 3 02/10/2023 Active omeprazole 40 mg delayed release oral capsule (3 sources) Proton Pump Inhibitor take 1 capsule by mouth in the morning omeprazole (PriLOSEC) 40 mg capsule Take 1 capsule (40 mg total) by mouth in the morning. 0 Active take 1 capsule by mouth twice da sarita Omeprazole 20 MG 1 capsule 30 minutes before morning meal Orally BID Active oxybutynin chloride 5 mg oral tablet (1 source) Cholinergic Muscarinic Antagonist Start: 05-24-2023 take 1 tablet by mouth in the morning, then take 1 tablet by mouth at bedtime oxybutynin (DITROPAN) 5 mg tablet Take 1 tablet (5 mg total) by mouth in the morning and 1 tablet (5 mg total) before bedtime. 0 05/24/2023 Active rosuvastatin calcium 20 mg oral tablet (4 sources) HMG-CoA Reductase Inhibitor Start: 02-10-2023 take 1 mg by mouth once daily rosuvastatin 20 mg Tab mg tab(s), Oral, Daily, Refills(s) 0 Start Date: 05/10/23 Status: Ordered tamsulosin hydrochloride 0.4 mg oral capsule (1 source) alpha-Adrenergic Shoaib Start: 05-24-2023 take 1 capsule by mouth once daily tamsulosin (FLOMAX) 0.4 mg capsule Take 1 capsule (0.4 mg total) by mouth nightly. 0 05/24/2023 Active Problems Active Problems Problem Classification Problem Date Documented Da te Episodic/Chronic Abdominal hernia (1 source) Diaphragmatic hernia without obstruction or gangrene Episodic Coronary atherosclerosis and other heart disease (2 sources) Coronary arteriosclerosis; Translations: [Atherosclerotic heart disease of moapa coronary artery with other forms of angina pectoris] Onset: 3 05-10-2023 Chronic Disorders of lipid metabolism (3 [...] hypertension; Translations: [Hypertensive disorder] Onset: 2 Chronic Hypertension with complications and secondary hypertension (1 source) Hypertensive heart disease; Translations: [Hypertensive heart disease without heart failure] Onset: 3 02-10-2023 Chronic Immunizations and screening for infectious disease (1 source) Encounter for immunization; Translations: [ENCOUNTER FOR IMMUNIZATION] Onset: 3 Episodic Menopausal disorders (2 sources) Atrophic vaginitis; Translations: [Postmenopausal atrophic vaginitis] Onset: 3 Chronic Mood disorders (1 source) Mood disorders; Translations: [DEPRESSION UNSPECIFIED] Onset: 3 Open wounds of extremities (4 sources) Laceration without foreign body of right index finger without damage to nail, initial encounter; Translations: [LAC W/O FB RT IF W/O DMG NAIL INIT] Onset: 3 Episodic Other aftercare (1 source) Other computer terminal operator (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 therapy; Translations: [OTH WEB KNITTER CURRENT DRUG THERAPY] Onset: 3 Episodic Other gastrointestinal disorders (1 source) Dysphagia, unspecified; Translations: [Dysphagia, unspecified] Onset: 3 Episodic Other nutritional; endocrine; and metabolic disorders (1 source) Disorder of mineral metabolism; 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, unspecified] Onset: 7 09-26-2022 Chronic Other screening for suspected conditions (not mental [...] source) Urinary tract infectious disease 05-10-2023 Episodic Past or Other Problems Problem Classification Problem Date Documented Da te Episodic/Chronic Calculus of urinary tract (6 sources) Personal history of urinary calculi; Translations: [History of calculus of kidney] Onset: 07-29-2016 Episodic Conditions associated with dizziness or vertigo (3 sources) Dizziness; Translations: [Dizziness and giddiness] Onset: 05-06-2022 Episodic Coronary atherosclerosis and other heart disease (1 source) Presence of coronary angioplasty implant and graft; Translations: [Percutaneous transluminal coronary angioplasty status] Onset: 02-10-2023 02-10-2023 Episodic Genitourinary symptoms and ill-defined conditions (3 sources) Unspecified symptoms and signs involving the genitourinary system; Translations: [Urinary symptoms ] Onset: 07-29-2016 Episodic Nonspecific chest pain (3 sources) Chest pain; Translations: [Chest pain, unspecified] Onset: 05-06-2022 Episodic Other diseases of kidney and ureters (1 source) Cyst of kidney; Translations: [Cyst of kidney, acquired] Onset: 07-29-2016 02-14-2022 Episodic Results Test Name Value Interpretation Reference Range Facility Insurance Correspondenceon 1 09-05-2022 Insurance Correspondence [id number]#1.00TIFF Normal [facility] RAD - MISCon 05-30-2023 RAD - MISC [id number] #1.00TIFF [facility] Operative Reporton 3 Operative Report [id number]# 1.00TIFF Normal [facility] RAD - MISCon 05-24-2023 RAD - MISC [id number] #1.00TIFF Normal [facility] Consultation Noteon 05-22-20 Consultation Note [id number]# 1.00TIFF Normal [facility] Lab Reportson 05-18-2023 Lab Reports [id number] #1.00TIFF Normal [facility] Lab Reports [id number] #1.00TIFF Normal [facility] Lab Reports [id number] #1.00TIFF Normal [facility] Lab Reports [id number] #1.00TIFF Normal [facility] Consultation Noteon 05-15-20 Consultation Note [id number] #1.00TIFF Normal [facility] ED Note-Physicianon 05-12-20 ED Note-Physician [id number] #1.00TIFF Normal [facility] Formson 05-11-2023 Forms [id number] #1.00TIFF Normal [facility] Ambulatory Visit Summaryon 1 07-10-2022 Ambulatory Visit Summary BELLA COY :1955 Visit Date:05/10/2023 Ambulatory Visit Instructions Your Diagnosis Kidney stones Vaginal atrophy UTI symptoms Personal history of kidney stones Female bladder prolapse Tests Performed Urnls Dip Stick Auto w/o Microscopy POC 88268 Your Care Team Attending Physician - Oren BOB, Elizabeth Brown Primary Care Physician - NADIRA MARTÍNEZ CNP [...] then 2x/ week for maintainence Pickup at [facility] Unchanged alprazolam By Mouth Contact prescribing physician [...] physician if questions or concerns Pharmacy Information [facility]: [address], [place] [phone] Test Results Urnls Dip Stick Auto w/o Microscopy POC 45387 (05/10/2023) Bilirubin Urine Dipstick - Negative Blood Urine Dipstick - 2+ Moderate Glucose Urine Dipstick - Negative Ketones Urine Dipstick - Negative Leukocytes Urine Dipstick - Negative Nitrite Urine Dipstick - Negative Protein Urine Dipstick - Negative Specific Archer Urine Dipstick - 1.025 Urine Appearance Urine [...] for you. S (more content not included)... [facility] Formson 05-10-2023 Forms [id number] #1.00TIFF [facility] Insurance Correspondenceon 1 07-10-2022 Insurance Correspondence [id number] 3#1.00TIFF [facility] Patient Educationon 05-10-20 Patient Education Nephrology [...] Spinach (cooked), rhubarb, beets, sweet potatoes, and Latvian chard. ? Peanuts. ? Potato chips, dutch fries, and baked potatoes with skin on. ? Nuts and nut products. ? Chocolate. ? If you regularly take a diuretic medicine, make sure to eat at least 1 or 2 servings of fruits or vegetables that are high in potassium each day. These include: ? Avocado. ? Banana. ? Mohler, prune, carrot, or tomato juice. ? Baked [...] fish oil, or vitamin B6. ? Take [id number]-[id number] and prescription medicines only as told by your health care provider. These include supplements. What foods should I limit? Limit your in (more content not included)... Normal [facility] Screenson 05-10-2023 Screens [id number] #1.00TIFF Normal [facility] Urology Office/Clinic Noteon 05-10-2023 Urology Office/Clinic Note Chief Complaint kidney stones HPI Staff Pt is a new pt. Last seen in our office 02/23/09 by PRW due to Kidney Stones. S/P Lt ESWL 03/05/09. recently patient has been seeing Dr De Jesus in [place] but his practice no longer accepts pt's [...] ESWL, stag (more content not included)... Normal [facility] Comment on above: Result Comment: Elec tronically Signed By: Oren BOB, Elizabeth Brown\.br\Date and Time Signed: 05/10/23 12:16 EDT\.br\Electronically Co-Signed By: Shahana Mazariegos\.br\Date and Time Co-Signed: 05/10/23 10:28 EDT RAD - MISCon 03-27-2023 RAD - MISC [id number] 1.00CD:127 Normal [facility] Basic Metabolic Profon 01-23 Anion gap [Moles/Vol] 10 mmol/L Normal 9-17 [facility] Comment on above: Performed By: #### B GAL, CBC #### [facility] [address] [facility] [place] [address] General Internist And Physician Leader: Brooks Almazan MD BUN/CRE Ratio 30 High 9-20 [facility] Comment on above: Performed By: #### B GAL, CBC #### [facility] [address] [facility] [facility] [place] [address] General Internist And Physician Leader: Brooks Almazan MD Calcium [Mass/Vol] 8.9 mg/dL Normal 8.6-10.4 [facility] Comment on above: Performed By: #### B MP, CBC #### [facility] [address] [place] [address] General Internist And Physician Leader: Brooks Almazan MD Chloride [Moles/Vol] 104 mmol/L Normal 98-107 [facility] Comment on above: Performed By: #### B MP, CBC #### [facility] [address] [place] [address] General Internist And Physician Leader: Brooks Almazan MD CO2 [Moles/Vol] 27 mmol/L Normal 20-31 [facility] Comment on above: Performed By: #### B MP, CBC #### [facility] [address] [facility] [address] General Internist And Physician Leader: Brooks Almazan MD Creatinine [Mass/Vol] 0.5 mg/dL Normal 0.5-0.9 [facility] Comment on above: Performed By: #### B MP, CBC #### [facility] [address] [place] [address]. [place] [address] General Internist And Physician Leader: Brooks Almazan MD GFR/1.73 sq M.predicted among non-blacks MDRD (S/P/Bld) [Vol rate/Area] mL/min/{1.73_m2} Normal >60 [facility] Comment on above: Result Comment: These [...] Performed By: #### B MP, CBC #### [facility] [place] [address] General Internist And Physician Leader: Brooks Almazan MD Glucose [Mass/Vol] 97 mg/dL Normal 70-99 [facility] Comment on above: Performed By: #### B MP, CBC #### [facility] [address] [place] [address] General Internist And Physician Leader: Brooks Almazan MD Potassium [Moles/Vol] 4.8 mmol/L Normal 3.7-5.3 [facility] Comment on above: Result Comment: SPEC IMEN SLIGHTLY HEMOLYZED, RESULTS MAY BE ADVERSELY AFFECTED. Performed By: #### B MP, CBC #### [facility] [address] [place], [place] [address]. [place] [address] General Internist And Physician Leader: Brooks Almazan MD Sodium [Moles/Vol] 141 mmol/L Normal 135-144 [facility] Comment on above: Performed By: #### B MP, CBC #### [facility] [place] [address] General Internist And Physician Leader: Brooks Almazan MD Urea nitrogen [Mass/Vol] 15 mg/dL Normal 8-23 [facility] Comment on above: Performed By: #### B MP, CBC #### [facility] [address] [place] [address] General Internist And Physician Leader: Brooks Almazan MD CBCon 01-23-2023 Erythrocyte distribution width (RBC) [Ratio] 12.4 % Normal 11.8-14.4 [facility] Comment on above: Performed By: #### B MP, CBC #### [facility] [address] [place] [address]. [place] [address] General Internist And Physician Leader: Brooks Almazan MD Hematocrit (Bld) [Volume fraction] 40.3 % Normal 36.3-47.1 [facility] Comment on above: Performed By: #### B MP, CBC #### [facility] [address] [place] [address]. [place] [address] General Internist And Physician Leader: Brooks Almazan MD Hemoglobin (Bld) [Mass/Vol] 13.1 g/dL Normal 11.9-15.1 [facility] Comment on above: Performed By: #### B MP, CBC #### [facility] [address] [place] [address]. [place] [address] General Internist And Physician Leader: Brooks Almazan MD MCH (RBC) [Entitic mass] 30.0 pg Normal 25.2-33.5 [facility] Comment on above: Performed By: #### B MP, CBC #### [facility] [address] [place] [address] General Internist And Physician Leader: Brooks Almazan MD MCHC (RBC) [Mass/Vol] 32.5 g/dL Normal 28.4-34.8 [facility] Comment on above: Performed By: #### B MP, CBC #### [facility] [place] [address] General Internist And Physician Leader: Brooks Almazan MD MCV (RBC) [Entitic vol] 92.4 fL Normal 82.6-102.9 [facility] Comment on above: Performed By: #### B MP, CBC #### [facility] [address] [place] [address]. [place] [address] General Internist And Physician Leader: Brooks Almazan MD NRBC Automated 0.0 per 100 WBC Normal 0.0 [facility] Comment on above: Performed By: #### B MP, CBC #### [facility] [address] [place] [address]. [place] [address] General Internist And Physician Leader: Brooks Almazan MD Platelet mean volume (Bld) [Entitic vol] 9.3 fL Normal 8.1-13.5 [facility] Comment on above: Performed By: #### B MP, CBC #### [facility] [address] [place] [address]. [place] [address] General Internist And Physician Leader: Brooks Almazan MD Platelets (Bld) [#/Vol] 234 10*3/uL Normal 138-453 [facility] Comment on above: Performed By: #### B MP, CBC #### [facility] [address] [place] [address]. [place] [address] General Internist And Physician Leader: Brooks Almazan MD RBC (Bld) [#/Vol] 4.36 10*6/uL Normal 3.95-5.11 [facility] Comment on above: Performed By: #### B MP, CBC #### [facility] [address] [place] [address] General Internist And Physician Leader: Brooks Almazan MD WBC (Bld) [#/Vol] 7.1 10*3/uL Normal 3.5-11.3 [facility] Comment on above: Performed By: #### B MP, CBC #### [facility] [address] [place], [place] [id number] General Internist And Physician Leader: Brooks Almazan MD CBC AUTO DIFFon 11-27-2021 BASO # 0.1 103/ul Normal 0.0-0.1 [facility] Comment on above: Performed By: #### C BC #### [facility] [address] [place] [address] Dr. Liliam Sanderson Basophils/100 WBC (Bld) 0.7 % Normal 0.2-2.0 [facility] Comment on above: Performed By: #### C BC #### [facility] [address] [address] [address] Liliam Sanderson EO # 0.2 103/ul Normal 0.0-0.7 [facility] Comment on above: Performed By: #### C BC #### [facility] [address] [place] [address] Dr. Liliam Sanderson Eosinophils/100 WBC (Bld) 2.2 % Normal 0.9-7.0 [facility] Comment on above: Performed By: #### C BC #### [facility] [address] [address] [address] Liliam Sanderson Erythrocyte distribution width (RBC) [Ratio] 12.0 % Normal 11.0-15.0 [facility] Comment on above: Performed By: #### C BC #### [facility] [address] [place] [address] Dr. Liliam Sanderson Hematocrit (Bld) [Volume fraction] 40.6 % Normal 36.0-48.0 [facility] Comment on above: Performed By: #### C BC #### [facility] [address] [place] [address] Dr. Liliam Sanderson Hemoglobin (Bld) [Mass/Vol] 13.3 g/dL Normal 12.0-16.0 [facility] Comment on above: Performed By: #### C BC #### [facility] [address] [place] [address] Dr. Liliam Sanderson IG # 0.03 10e3/ul Normal 0.00-0.03 [facility] Comment on above: Performed By: #### C BC #### [facility] [address] [place] [address] Dr. Liliam Sanderson IG % 0.3 % Normal 0.0-0.5 [facility] Comment on above: Performed By: #### C BC #### [facility] [address] [place] [address] Dr. Liliam Sanderson LYMPH # 3.2 103/ul Normal 1.2-3.8 [facility] Comment on above: Performed By: #### C BC #### [facility] [address] [place] [address] Dr. Liliam Sanderson Lymphocytes/100 WBC (Bld) 30.7 % Normal 20.5-60.0 [facility] Comment on above: Performed By: #### C BC #### [facility] [address] [place] [address] Dr. Liliam Sanderson MANUAL DIFF REQ NO Normal [facility] Comment on above: Performed By: #### C BC #### [facility] [address] [place] [address] Dr. Liliam Sanderson MCH (RBC) [Entitic mass] 30.2 pg Normal 26.7-34.0 [facility] Comment on above: Performed By: #### C BC #### [facility] [address] [place] [address] Dr. iLliam Sanderson MCHC (RBC) [Mass/Vol] 32.8 g/dL Normal 29.9-35.2 [facility] Comment on above: Performed By: #### C BC #### [facility] [address] [address] [address] Liliam Sanderson MCV (RBC) [Entitic vol] 92.1 fL Normal 81.0-99.0 [facility] Comment on above: Performed By: #### C BC #### [facility] [address] [address] [address] Liliam Sanderson MONO # 0.8 103/ul Normal 0.3-0.8 [facility] Comment on above: Performed By: #### C BC #### [facility] [address] [address] [address] Liliam Sanderson Monocytes/100 WBC (Bld) 7.5 % Normal 1.7-12.0 [facility] Comment on above: Performed By: #### C BC #### [facility] [address] [place] [address] Dr. Liliam Sanderson NEUT # 6.1 103/ul Normal 1.4-6.5 [facility] Comment on above: Performed By: #### C BC #### [facility] [address] [place] [address] Dr. Liliam Sanderson Neutrophils/100 WBC (Bld) 58.6 % Normal 43.0-75.0 [facility] Comment on above: Performed By: #### C BC #### [facility] [address] [place] [address] Dr. Liliam Sanderson Platelet mean volume (Bld) [Entitic vol] 8.8 fL Critically low 9.5-13.5 [facility] Comment on above: Performed By: #### C BC #### [facility] [address] [place] [address] Dr. Liliam Sanderson PLT 264 103/ul Normal 150-450 [facility] Comment on above: Performed By: #### C BC #### [facility] [address] [place] [address] Dr. Liliam Sanderson RBC 4.41 106/ul Normal 4.20-5.40 [facility] Comment on above: Performed By: #### C BC #### [facility] [address] [place] [address] Dr. Liliam Sanderson WBC 10.4 103/ul Normal 4.0-11.0 [facility] Comment on above: Performed By: #### C BC #### [facility] [address] [address] [address] Liliam Sanderson LIPID PROFILEon 11-27-2021 CHOL-HDL RATIO NORM SEE BELOW Normal [facility] Comment on above: Result Comment: 3.3 - 4.4 LOW RISK 4.4 - 7.1 AVERAGE RISK 7.1 - 11.0 MODERATE RISK >11.0 HIGH RISK Performed By: #### C MP, LIPID #### [facility] [address] [address] [address] Liliam Sanderson Cholesterol [Mass/Vol] 204 mg/dL Critically high <=200 [facility] Comment on above: Performed By: #### C MP, LIPID #### [facility] [address] [address] [address] Liliam Sanderson Cholesterol in HDL [Mass/Vol] 46 mg/dL Normal 40-60 [facility] Comment on above: Performed By: #### C MP, LIPID #### [facility] [address] [address] [address] Liliam Sanderson Cholesterol in LDL [Mass/Vol] 125.4 mg/dL Normal [facility] Comment on above: Performed By: #### C MP, LIPID #### [facility] [address] [address] [address] Liliam Sanderson Cholesterol.total/Chol esterol in HDL [Mass ratio] 4.4 {ratio} Normal [facility] Comment on above: Performed By: #### C MP, LIPID #### [facility] [address] [address] [address] Liliam Sanderson HDL NORMAL > or = 60 mg/dl - LOW CARDIOVASCULAR RISK <40 mg/dl - HIGH CARDIOVASCULAR RISK Normal [facility] Comment on above: Performed By: #### C MP, LIPID #### [facility] [address] [address] [address] Liliam aSnderson LDL CALC NORMAL SEE BELOW Normal [facility] Comment on above: Result Comment: <100 mg/dl OPTIMAL 100 - 129 mg/dl NEAR OR ABOVE OPTIMAL 130 - 159 mg/dl BORDERLINE HIGH 160 - 189 mg/dl HIGH >190 mg/dl VERY HIGH Performed By: #### C MP, LIPID #### [facility] [address] [place] [address] Dr. Liliam Sanderson Triglyceride [Mass/Vol] 163 mg/dL Critically high <=150 [facility] Comment on above: Performed By: #### C MP, LIPID #### [facility] [address] [place] [address] Dr. Liliam Sanderson VLDL CALC 32.6 mg/dL Normal [facility] Comment on above: Performed By: #### C MP, LIPID #### [facility] [address] [place] [address] Dr. Liliam Sanderson PROF 14(COMP METB)on 022 Albumin [Mass/Vol] 4.1 g/dL Normal 3.4-5.0 [facility] Comment on above: Performed By: #### C MP, LIPID #### [facility] [address] [place] [address] Dr. Liliam Sanderson Albumin/Globulin [Mass ratio] 1.2 {ratio} Normal [facility] Comment on above: Performed By: #### C MP, LIPID #### [facility] [address] [place] [address] Dr. Liliam Sanderson ALP [Catalytic activity/Vol] 61 U/L Normal 46-116 [facility] Comment on above: Performed By: #### C MP, LIPID #### [facility] [address] [place] [address] Dr. Liliam Sanderson ALT [Catalytic activity/Vol] 20 U/L Normal 14-59 [facility] Comment on above: Performed By: #### C MP, LIPID #### [facility] [address] [place] [address] Dr. Liliam Sanderson Anion gap [Moles/Vol] 11.4 mmol/L Normal [facility] Comment on above: Performed By: #### C MP, LIPID #### [facility] [address] [place] [address] Dr. Liliam Sanderson AST [Catalytic activity/Vol] 12 U/L Critically low 15-37 [facility] Comment on above: Performed By: #### C MP, LIPID #### [facility] [address] [place] [address] Dr. Liliam Sanderson Bilirubin [Mass/Vol] 0.5 mg/dL Normal 0.2-1.0 [facility] Comment on above: Performed By: #### C MP, LIPID #### [facility] [address] [place] [address] Dr. Liliam Sanderson Calcium [Mass/Vol] 8.9 mg/dL Normal 8.5-10.1 [facility] Comment on above: Performed By: #### C MP, LIPID #### [facility] [address] [place] [address] Dr. Liliam Sanderson Chloride [Moles/Vol] 102 mmol/L Normal 98-107 [facility] Comment on above: Performed By: #### C MP, LIPID #### [facility] [address] [place] [address] Dr. Liliam Sanderson CO2 [Moles/Vol] 28.3 mmol/L Normal 21.0-32.0 [facility] Comment on above: Performed By: #### C MP, LIPID #### [facility] [address] [place] [address] Dr. Liliam Sanderson Creatinine [Mass/Vol] 0.66 mg/dL Normal 0.55-1.02 [facility] Comment on above: Performed By: #### C MP, LIPID #### [facility] [address] [place] [address] Dr. Liliam Sanderson EGFR-AF SWEDISH >60 Normal >=60 [facility] Comment on above: Performed By: #### C MP, LIPID #### [facility] [address] [place] [address] Dr. Liliam Sanderson EGFR-NON AF SWEDISH >60 Normal >=60 [facility] Comment on above: Performed By: #### C MP, LIPID #### [facility] [address] [place] [address] Dr. Liliam Sanderson Globulin (S) [Mass/Vol] 3.4 g/dL Normal [facility] Comment on above: Performed By: #### C MP, LIPID #### [facility] [address] [place] [address] Dr. Liliam Sanderson Glucose [Mass/Vol] 100 mg/dL Normal 74-106 [facility] Comment on above: Performed By: #### C MP, LIPID #### [facility] [address] [place] [address] Dr. Liliam Sanderson Potassium [Moles/Vol] 3.7 mmol/L Normal 3.5-5.1 [facility] Comment on above: Performed By: #### C MP, LIPID #### [facility] [address] [place] [address] Dr. Liliam Sanderson Protein [Mass/Vol] 7.5 g/dL Normal 6.4-8.2 [facility] Comment on above: Performed By: #### C MP, LIPID #### [facility] [address] [place] [address] Dr. Liliam Sanderson Sodium [Moles/Vol] 138 mmol/L Normal 136-145 [facility] Comment on above: Performed By: #### C MP, LIPID #### [facility] [address] [place] [address] Dr. Liliam Sanderson Urea nitrogen [Mass/Vol] 14.0 mg/dL Normal 7.0-18.0 [facility] Comment on above: Performed By: #### C MP, LIPID #### [facility] [address] [place] [address] Dr. Liliam Sanderson Urea nitrogen/Creatinine [Mass ratio] 21.2 mg/mg Normal [facility] Comment on above: Performed By: #### C MP, LIPID #### [facility] [address] [place] [address] Dr. Liliam Sanderson Vital Signs Date Time Vital Sign Value Performing Clinician Facility 05-10-2023 09:48-0400 Blood Pressure Location Elizabeth Lott [facility] 05-10-2023 09:48-0400 Diastolic blood pressure 67 mm[Hg] Elizabeth Lue [facility] 05-10-2023 09:48-0400 Heart rate 73 /min Elizabeth Lue [facility] 05-10-2023 09:48-0400 Respiratory rate 16 /min Elizabeth Lue [facility] 05-10-2023 09:48-0400 Systolic blood pressure 101 mm[Hg] Elizabeth Lue [facility] 02-14-2023 14:00-0400 Body height 153.67 cm Himanshu Schernán Other [employer] [facility] [employer] Other 02-14-2023 14:00-0400 Body mass index (BMI) [Ratio] 24.78 kg/m2 Himanshu Scovanner Other [facility] [employer] Other 02-14-2023 14:00-0400 Body weight 58.51 kg Himanshu Scovanner Other [email or web address] Other 02-14-2023 14:00-0400 Diastolic blood pressure 84 mm[Hg] Himanshu Scovanner Other [email or web address] Other 02-14-2023 14:00-0400 Systolic blood pressure 142 mm[Hg] Himanshu Scovanner Other [email or web address] Other 11-15-2022 16:30-0400 Body height 153.67 cm Himanshu Scovanner Other [email or web address] Other 11-15-2022 16:30-0400 Body mass index (BMI) [Ratio] 26.27 kg/m2 Himanshu Borjas Other [email or web address] Other 11-15-2022 16:30-0400 Body weight 62.05 kg Himanshu Borjas Other [email or web address] Other 11-15-2022 16:30-0400 Diastolic blood pressure 76 mm[Hg] Himanshu Borjas Other [email or web address] Other 11-15-2022 16:30-0400 Systolic blood pressure 128 mm[Hg] Himanshu Borjas Other [email or web address] Other Encounters Encounter Date Encounter Type Care Provider Facility Start: 07-12-2023 ambulatory Elizabeth Lott Facility:C [id number] Start: 07-05-2023 Refill Juan David sser 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 Phone: [facility] Comment on above: Med Refill Start: 05-24-2023 End: 05-25-2023 ambulatory Elizabeth Lott Facility:CD:[id number] Start: 05-10-2023 End: 05-11-2023 ambulatory Elizabeth Lott Facility:[facility] Start: 05-10-2023 End: 05-10-2023 Patient encounter procedure Elizabeth Lott [facility] Start: 02-14-2023 End: 02-14-2023 ambulatory Himanshu Borjas Other [email or web address] Other Start: 02-14-2023 Office outpatient visit 15 minutes Himanshu CHAWLA [facility] Start: 02-01-2023 ambulatory Elizabeth Lott Facility:[facility] Start: 01-23-2023 End: 01-23-2023 ambulatory JAYA SIMON [facility] Start: 12-20-2022 End: 12-20-2022 ambulatory Fernando Castellon Facility:[facility] Start: 11-15-2022 End: 11-15-2022 ambulatory Himanshu Borjas Other [facility] [employer] Other Start: 11-15-2022 Office outpatient ne w 30 minutes Himanshu Borjas [facility] Start: 09-30-2022 End: 09-30-2022 ambulatory [facility] Facility: Start: 06-21-2022 End: 06-24-2022 ambulatory JUVENAL HARRELL [facility] Start: 06-21-2022 End: 06-23-2022 Subsequent hospital visit by physician [facility] Nurse 1 [facility] CT Scan Comment on above: Chest pain, unspecif ied type; Dizziness; Abnormal stress ECG Start: 11-27-2021 End: 11-28-2021 ambulatory [facility] Facility:H1 Procedures Date Procedure Procedure Detail Performing [...] Treatment Date Care Activity Detail Author Start: 06-19-2024 Adult BMI Screening Adult BMI Screen [facility] [facility] Start: 06-19-2024 Tobacco Screening Tobacco Screening [facility] [employer] [facility] Start: 08-17-2023 Tobacco Counseling Tobacco Counselin g [facility] [employer] [facility] Start: 03-10-2023 Influenza vaccination Influenza Vacc ine [facility] [employer] [facility] Start: 06-15-2022 Annual Wellness Visi t (AWV) Annual Wellness Visit (AWV) [facility] [employer] Start: 02-07-2022 Influenza vaccination Flu vaccine (# 1) [facility] [employer] Start: 2020 Fall Risk Screening Fall Risk Screen ing [facility] [employer] [facility] Start: 2020 Pneumococcal 65+ yea rs Vaccine (1 - PCV) Pneumococcal 65+ years Vaccine (1 - PCV) [facility] [employer] Start: 2010 Screening for osteoporosis DEXA (modify frequency per FRAX score) [facility] Start: 2005 Administration of varicella zoster vaccine Zoster (Shingles) Vaccine (1 of 2) [facility] [employer] [facility] Start: 2005 Screening for malign ant neoplasm of breast Breast cancer screen [facility] Start: 2005 Shingles vaccine (1 of 2) Hinojosa gles vaccine (1 of 2) [facility] Start: 2000 Screening for malign ant neoplasm of colon [facility] [employer] Start: 1995 Lipid panel Lipids [facility] [employer] [facility] Start: 1974 DTaP,Tdap and Td Vac cines (1 - Tdap) DTaP,Tdap and Td Vaccines (1 - Tdap) [facility] [employer] [facility] Start: 1974 DTaP/Tdap/Td vaccine (1 - Tdap) DTaP/Tdap/Td vaccine (1 - Tdap) [facility] [employer] Start: 1973 Hepatitis C screening Hepatitis C sc reen [facility] Start: 1967 Depression Screen Depression Screen [facility] Start: 1967 Depression Screening Depression Scre ening [facility] [employer] [facility] Start: 03-06-1956 COVID-19 Vaccine (#1) COVID-19 Vacci ne (#1) [facility] [employer] Start: 1955 Medicare Annual Well ness Visit Medicare Annual Wellness Visit [facility] End: 06-21-2022 CTA CORON EJECT FRAC WALL MOTION CTA CORON EJECT FRAC WALL MOTION Imaging Routine Chest pain, unspecified type Dizziness Abnormal stress ECG 1 Occurrences starting 06/21/2022 until 06/21/2022 [employer] Phone: Comment on above: 1 Occurrences starti ng 06/21/2022 until 06/21/2022 Payers Date Payer Category Payer Self-pay 2022 Private Health Insurance [id number] 2021 Medicare HUMANA MEDICARE [place] [id number] 2021-Present [phone] [address] [address] [place] [address] [id number] 1959 Medicare [id number] 1955 Unknown [id number] [id number] 1955 Unknown [id number] 1955 Unknown [id number] 1955 Unknown [id number] [id number] 1955 Unknown [id number] [id number] 1955 Unknown [id number] Unknown [id number] Social History Date Type Detail Facility Tobacco smoking stat [facility] Tobacco smoking consumption unknown [employer] Phone: Start: 1955 Sex Assigned At Not on file B ON [employer] Phone: Start: 08-19-2020 End: 06-19-2023 Sex Assigned At [facility] Start: 05-10-2023 Tobacco smoking status Light t obacco smoker (finding) [facility] Start: 04-27-2022 Tobacco smoking stat us NJIS Smokes tobacco daily [facility] History of tobacco use Cigarette Smoker P [employer] [facility] Start: 08-19-2020 End: 04-27-2022 Cigarettes smoked current (pack per day) - Reported 0.5 [facility] Start: 04-27-2022 Tobacco use and exposure Smoke less tobacco non-user [facility] Start: 06-19-2023 Alcohol intake Ex-drinker (finding) [facility] Housing Instability Unknown [facility] Start: 04-27-2022 Tobacco Comment has been decre asing daily [facility] Start: 05-06-2022 Alcohol Comment social--rare [facility] Functional Status Date Assessment Result Facility 05-10-2023 Functional Status N/A [facility] Clinical Notes 11-15-2022 to 07-05-2023 Telephone Encounter - Cristine Rodriguez RN - 07/05/2023 5:30 PM ESTTelephone Encounter - Cristine Rodriguez RN - 07/05/2023 5:30 PM EST Note Date & Type Note Facility 07-05-2023 Miscellaneous Notes Formattin g of this note might be different from the original. Ov 06/19/23 documented in this encounter [facility] 07-05-2023 Telephone encount er Note Ov 06/19/23 [facility] 05-10-2023 Hospital Discharg e instructions Patient Education [...] include: ?8 oz (237 mL) of milk, pdsxztd-dtcyurasrjtb-izqri milk, and calcium-fortifiedfruit juice. Calcium-fortified means that [...] ?Spinach (cooked), rhubarb, beets, sweet potatoes, and Latvian chard. ?Peanuts. ?Potato chips, dutch fries, and baked potatoes with skin on. ?Nuts and nut products. ?Chocolate. If you regularly take a diuretic medicine, make sure to eat at least 1 or 2 servings of fruits or vegetables that are high in potassium each day. These include: ?Avocado. ?Banana. ?Mohler, prune, carrot, or tomato juice. ?Baked potato. [...] magnesium, fish oil, or vitamin B6. Take qpqt-xlk-hhhwsox and prescription medicines only as told by [...] Lasagna. Frozen meals. Potato chips. Citizen Of [place] fries. The items listed above may not [...] provider. Document Revised: 03/07/2022 Document Reviewed: 03/07/2022 [employer] Patient Education 2022 [employer] [facility] 02/01/2023 14:06:36 With:Oren BOB, Elizabeth Brown URL, URO Address: When: Unknown Comments:Sched Lt ESWL/Stent [facility] [employer] 02-14-2023 Evaluation note Encounter Date Diagnosis Assessment Notes Feb, Hiatal hernia (ICD-10 - K44.9) Pt is taking omeprazole. Pt states this medication is working for her. Pt states she still some times gets acid reflux, but overall, she is doing well. Pt RTO in 6 months Feb, Esophageal stricture (ICD-10 - K22.2) [email or web address] Other 05-09-2023 Evaluation note* Encounter Date Diagnosis Assessment Notes Treatment Notes Treatment Clinical Notes November, GERD (gastroesophageal reflux disease) (ICD-10 - K21.9) we will obtain a records release to get records from [facility] It is recommened that patient get EGD and she argees to have this done Patient has family history of esophageal cancer November, Family history of esophageal cancer (ICD-10 - Z80.0) [email or web address] Other Evaluation + Plan note No data available for this section [facility] [employer] evaluation note* Diagnosis Chest pain, unspecified type Dizziness Dizziness and giddiness Abnormal stress ECG Other nonspecific abnormal cardiovascular system function study documented in this encounter [facility] [employer] Phone: History general Narrative - Reported* Type Description Date Medical History kidney stones Medical History hypertension Medical History gastritis Medical History Hiatal hernia Surgical History kidney stone Surgical History fx nose Surgical History ablasion Surgical History tubal ligation [email or web address] Other History general Narrative - Reported* Type Description Date Medical History kidney stones Medical History hypertension Medical History gastritis Medical History Hiatal hernia Surgical History kidney stone Surgical History fx nose Surgical History ablasion Surgical History tubal ligation Hospitalization History Heart procedure [email or web address] Other InstructionsNot on filedocumented in this encounter [facility] No data available for this section [facility] Reason for Referral Specialty Diagnoses / Procedures Referred By Contac t Referred To Contact Radiology Diagnoses Chest pain, unspecified type Dizziness Abnormal stress ECG R07.9 (ICD-10-CM) - Chest pain, unspecified type Procedures CTA CORON EJECT FRAC WALL MOTION CHG CT ANGIO HRT CORNRY ART/BYPASS GRFTS CONTRST 3D POST 85160 - CHG CT ANGIO HRT CORNRY ART/BYPASS GRFTS CONTRST 3D POST Juvenal Harrell MD [address] [place], [place] [id number] Referral ID Status Reason Start Date Expiration Date V isits Requested Visits Authorized [id number] Authorized 06/21/2022 05/07/2023 1 1 Summary Purpose [...] HRT CORNRY ART/BYPASS GRFTS CONTRST 3D POST 87014 - CHG CT ANGIO HRT CORNRY ART/BYPASS GRFTS CONTRST 3D POST Juvenal Harrell MD [address] [place] [id number] Referral ID Status Reason Start Date Expiration Date V isits Requested Visits Authorized [id number] Authorized 06/21/2022 05/07/2023 1 1 Reason Comments Med Refill Care Teams (unrecognized sec tion and content) Feed Miller Relationship Specialty Start Date End Date Anglim, NadiraRISA CNP [address] [place] [address] PCP - General Certified Nurse Practitioner 06/17/22 Feed Miller Relationship Specialty Start Date End Date Nadira Martníez APRN-DUPLIGRAPH OPERATOR [address] [place] [address] PCP - General Family Medicine 11/23/20 INFORMATION SOURCE (unrecogn ized section and content) DATE CREATED AUTHOR 06/30/2022 [facility] DATE CREATED AUTHOR AUTHOR'S ORGANIZ ATION 10/06/2022 [facility] DATE CREATED AUTHOR AUTHOR'S ORGANIZ ATION 12/26/2022 [facility] DATE CREATED AUTHOR AUTHOR'S ORGANIZ ATION 01/23/[address] [facility] DATE CREATED AUTHOR AUTHOR'S ORGANIZ ATION 07/06/[address] [facility] FOR RECORDS PERTAINING TO PATIENTS WHO [...] BE BASED ON THE PRIMARY CLINICAL RECORDS. [email or web address] provides no warranty or guarantee of the accuracy or completeness of information in this document.
[2023-07-06 13:28] LABS: Basophils Absolute Auto 0.1 10^3/uL (0.0-0.1); Basophils Percent Auto 1.1 % (0.2-2.0); Eosinophils Absolute Auto 0.4 10^3/uL (0.0-0.7); Eosinophils Percent Auto 4.6 % (0.9-7.0); Hematocrit 38.5 % (36.0-48.0); Hemoglobin 12.4 g/dL (12.0-16.0); Immature Granulocytes Abs Auto 0.02 10^3/uL (0.00-0.03); Immature Granulocytes Pct Auto 0.2 % (0.0-0.5); Lymphocytes Absolute Auto 2.3 10^3/uL (1.2-3.8); Lymphocytes Percent Auto 27.2 % (20.5-60.0); Mean Corpuscular HGB Conc 32.2 g/dL (29.9-35.2); Mean Corpuscular Hemoglobin 29.7 pg (26.7-34.0); Mean Corpuscular Volume 92.3 fL (81.0-99.0); Monocytes Absolute Auto 0.6 10^3/uL (0.3-0.8); Monocytes Percent Auto 6.9 % (1.7-12.0); Platelet Count 304 10^3/uL (150-450); Red Blood Count 4.17 10^6/uL (4.20-5.40); Red Cell Distribution Width 12.3 % (11.0-15.0); White Blood Count 8.4 10^3/uL (4.0-11.0)
[2023-07-06 13:39] LABS: Anion Gap 15.3; Calcium 9.3 mg/dL (8.5-10.1); Carbon Dioxide 26.1 mmol/L (21.0-32.0); Chloride 102 mmol/L (98-107); Estimated GFR (African America >60 (>=60); Estimated GFR (Non-African Ame >60 (>=60); Glucose 99 mg/dL (74-106); Potassium 4.4 mmol/L (3.5-5.1); Sodium 139 mmol/L (136-145)
[2023-07-06 13:44] LABS: INR 0.96; Partial Thromboplastin Time 29.6 sec (22.3-36.2); Prothrombin Time 10.2 sec (9.0-11.6)
== END 2023-07-06 12:30 | disposition home or self-care (01) ==
LOC: PST 12:29
PROVIDERS: Visit Provider Urology
DX: N20.0 Calculus of kidney (principal); Z01.812 Encounter for preprocedural laboratory examination
CPT/HCPCS: 80048; 85025; 85610; 85730

== ENCOUNTER 2023-07-12 11:20 | Day surgery (SDC) | payer MEDICARE, SELFPAY ==
[2023-07-06 12:57] VITALS: BP 129/59; PULSE 63; RESP 18; TEMP 36.2; O2SAT 97; BMI 25.4
[2023-07-12] VITALS (12 sets, daily range): BP systolic 109–176; BP diastolic 46–82; PULSE 65–108; RESP 12–27; TEMP 36.1–36.2; O2SAT 87–100; BMI 24.3
--- OUTSIDE RECORDS SUMMARY | 2023-07-12 11:25 | XMS_ITS | CCD ---
Author Name Unknown Address [facility] [place] [address] Organization [facility] Care Team Providers Care Public Health Dietitian Name Role Phone Nadira Modi APRN, CNP Primary Care Provider JUVENAL HARRELL Referring Unavailable NADIRA MARTÍNEZ Primary Care Unavailable [facility] Unava ilable MIKHAIL GRANT Consulting Unavailable MIKHAIL GRANT Admitting Unavailable MIKHAIL GRANT Attending Unavailable NADIRA MARTÍNEZ Admitting Unavailable NADIRA MARTÍNEZ Attending Unavailable [facility] Primary Care Unava ilable MARILYNN, NADIRA [...] Medication Allergies] Propensity to adverse reactions (disorder) [facility] Repository Medications Current Medications Medication Drug Class(es) [...] hr tablet Indications: 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 #1.00TIFF Normal [facility] RAD - MISCon 07-06-2023 RAD - MISC [id number] #1.00TIFF Normal [facility] Insurance Correspondenceon 1 09-05-2022 Insurance Correspondence [id number]#1.00TIFF Normal [facility] RAD - MISCon 05-30-2023 [facility] [id number] #1.00TIFF Normal [facility] Operative Reporton Operative Report [id number]# 1.00TIFF Normal [facility] RAD - MISCon 05-24-2023 [facility] [id number] #1.00TIFF Normal [facility] Consultation Noteon 05-22-20 Consultation Note [id number]# 1.00TIFF Normal [facility] Lab Reportson 05-18-2023 Lab Reports [id number] #1.00TIFF Normal [facility] Lab Reports [id number] #1.00TIFF Normal [facility] Lab Reports [id number] #1.00TIFF Normal [facility] Lab Reports [id number] #1.00TIFF Normal [facility] Consultation Noteon 05-15-20 Consultation Note [id number] #1.00TIFF Normal [facility] ED Note-Physicianon 05-12-20 ED Note-Physician [id number] #1.00TIFF Normal [facility] Formson 05-11-2023 Forms [id number] #1.00TIFF Normal [facility] Ambulatory Visit Summaryon 07-10-2022 Ambulatory Visit Summary SLY COY :1955 Visit Date:05/10/2023 Ambulatory Visit Instructions Your Diagnosis Kidney stones Vaginal atrophy UTI symptoms Personal history of kidney stones Female bladder prolapse Tests Performed Urnls Dip Stick Auto w/o Microscopy POC 66443 Your Care Team Attending Physician - Oren [...] then 2x/ week for maintainence Pickup at [facility] 0272 Unchanged alprazolam By Mouth Contact prescribing physician [...] Pharmacy Information [facility]: [address], [place] [id number] [phone] Test Results Urnls Dip Stick Auto w/o Microscopy POC 84055 (05/10/2023) Bilirubin Urine Dipstick - Negative Blood Urine Dipstick - 2+ Moderate Glucose Urine Dipstick - Negative Ketones Urine Dipstick - Negative Leukocytes Urine Dipstick - Negative Nitrite Urine Dipstick - Negative Protein Urine Dipstick - Negative Specific Neely Urine Dipstick - 1.025 Urine Appearance Urine [...] for you. S (more content not included)... Normal [facility] Formson 05-10-2023 Forms [id number] #1.00TIFF [facility] Insurance Correspondenceon 1 07-10-2022 Insurance Correspondence [id number] 3#1.00TIFF [facility] Patient Educationon 05-10-20 Patient Education Nephrology [...] Spinach (cooked), rhubarb, beets, sweet potatoes, and Bulgarian chard. ? Peanuts. ? Potato chips, russian fries, and baked potatoes with skin on. ? Nuts and nut products. ? Chocolate. ? If you regularly take a diuretic medicine, make sure to eat at least 1 or 2 servings of fruits or vegetables that are high in potassium each day. These include: ? Avocado. ? Banana. ? Benton, prune, carrot, or tomato juice. ? Baked [...] fish oil, or vitamin B6. ? Take vyqq-uwd-jcceszz and prescription medicines only as told by your health care provider. These include supplements. What foods should I limit? Limit your in (more content not included)... Normal [facility] Screenson 05-10-2023 Screens [id number] #1.00TIFF Normal [facility] Urology Office/Clinic Noteon 05-10-2023 Urology Office/Clinic Note Chief Complaint kidney stones HPI Staff Pt is a new pt. Last seen in our office 02/23/09 by PRW due to Kidney Stones. S/P Lt ESWL 8/27/09. recently patient has been seeing Dr De Jesus in [place] but his practice no longer accepts pt's [...] ESWL, stag (more content not included)... Normal [facility] Comment on above: Result Comment: Elec tronically Signed By: Oren BOB, Elizabeth Brown\.br\Date and Time Signed: 05/10/23 12:16 EDT\.br\Electronically Co-Signed By: Shahana Mazariegos\.br\Date and Time Co-Signed: 05/10/23 10:28 EDT RAD - MISCon 03-27-2023 RAD - MIS [id number] 1.00CD:127 Normal [facility] Basic Metabolic Profon 01-23 Anion gap [Moles/Vol] 10 mmol/L Normal 9-17 [facility] Comment on above: Performed By: #### B GAL, CBC #### [facility] [address] [place] [address] Finished Cloth Checker: Brooks Almazan MD BUN/CRE Ratio 30 High 9-[address] [facility] Comment on above: Performed By: #### B MP, CBC #### [facility] [address] [facility] [place] [address] Finished Cloth Checker: Brooks Almazan MD Calcium [Mass/Vol] 8.9 mg/dL Normal 8.6-10.[address] [facility] Comment on above: Performed By: #### B MP, CBC #### [facility] [address] [facility] [place] [address] Finished Cloth Checker: Brooks Almazan MD Chloride [Moles/Vol] 104 mmol/L Normal 98-107 [facility] Comment on above: Performed By: #### B MP, CBC #### [facility] [address] [place] [address] Finished Cloth Checker: Brooks Almazan MD CO2 [Moles/Vol] 27 mmol/L Normal 20-[address] [facility] Comment on above: Performed By: #### B MP, CBC #### [facility] [address] [place] [address] Finished Cloth Checker: Brooks Almazan MD Creatinine [Mass/Vol] 0.5 mg/dL Normal 0.5-0.9 [facility] Comment on above: Performed By: #### B MP, CBC #### [facility] [facility] [place] [address] Finished Cloth Checker: Brooks Almazan MD GFR/1.73 sq M.predicted among non-blacks MDRD (S/P/Bld) [Vol rate/Area] mL/min/{1.73_m2} Normal >[address] [facility] Comment on above: Result Comment: These results [...] Performed By: #### B MP, CBC #### [facility] [address] [facility] [place] [address] Finished Cloth Checker: Brooks Almazan MD Glucose [Mass/Vol] 97 mg/dL Normal 70-[address] [facility] Comment on above: Performed By: #### B MP, CBC #### [facility] [address] [place], [place] [address] Finished Cloth Checker: Brooks Almazan MD Potassium [Moles/Vol] 4.8 mmol/L Normal 3.7-5.3 [facility] Comment on above: Result Comment: SPEC IMEN SLIGHTLY HEMOLYZED, RESULTS MAY BE ADVERSELY AFFECTED. Performed By: #### B MP, CBC #### [facility] [address] [place] [address] Finished Cloth Checker: Brooks Almazan MD Sodium [Moles/Vol] 141 mmol/L Normal 135-[address] [facility] Comment on above: Performed By: #### B MP, CBC #### [facility] [address] [place] [address] Finished Cloth Checker: Brooks Almazan MD Urea nitrogen [Mass/Vol] 15 mg/dL Normal 8-[address] [facility] Comment on above: Performed By: #### B MP, CBC #### [facility] [address] [place] [address] Finished Cloth Checker: Brooks Almazan MD CBCon 01-23-2023 Erythrocyte distribution width (RBC) [Ratio] 12.4 % Normal 11.8-14.[address] [facility] Comment on above: Performed By: #### B MP, CBC #### [facility] [address] [place] [address]. [place] [address] Finished Cloth Checker: Brooks Almazan MD Hematocrit (Bld) [Volume fraction] 40.3 % Normal 36.3-47.[address] [facility] Comment on above: Performed By: #### B MP, CBC #### [facility] [address] [place] [address]. [place] [address] Finished Cloth Checker: Brooks Almazan MD Hemoglobin (Bld) [Mass/Vol] 13.1 g/dL Normal 11.9-15.[address] [facility] Comment on above: Performed By: #### B MP, CBC #### [facility] [address] [facility] [place] [address] Finished Cloth Checker: Brooks Almazan MD MCH (RBC) [Entitic mass] 30.0 pg Normal 25.2-33.[address] [facility] Comment on above: Performed By: #### B MP, CBC #### [facility] [address] [place] [address]. [place] [address] Finished Cloth Checker: Brooks Almazan MD MCHC (RBC) [Mass/Vol] 32.5 g/dL Normal 28.4-34.8 [facility] Comment on above: Performed By: #### B MP, CBC #### [facility] [address] [place] [address] Finished Cloth Checker: Brooks Almazan MD MCV (RBC) [Entitic vol] 92.4 fL Normal 82.6-102.[address] [facility] Comment on above: Performed By: #### B MP, CBC #### [facility] [address] [place] [address] Finished Cloth Checker: Brooks Almazan MD NRBC Automated 0.0 per 100 WBC Normal 0.[address] [facility] Comment on above: Performed By: #### B MP, CBC #### [facility] [address] [place] [address]. [place] [address] Finished Cloth Checker: Brooks Almazan MD Platelet mean volume (Bld) [Entitic vol] 9.3 fL Normal 8.1-13.[address] [facility] Comment on above: Performed By: #### B MP, CBC #### [facility] [address] [place] [address] Finished Cloth Checker: Brooks Almazan MD Platelets (Bld) [#/Vol] 234 10*3/uL Normal 138-[address] [facility] Comment on above: Performed By: #### B MP, CBC #### [facility] [address] [place] [address] Finished Cloth Checker: Brooks Almazan MD RBC (Bld) [#/Vol] 4.36 10*6/uL Normal 3.95-5.[address] [facility] Comment on above: Performed By: #### B MP, CBC #### [facility] [address] [place] [address] Finished Cloth Checker: Brooks Almazan MD WBC (Bld) [#/Vol] 7.1 10*3/uL Normal 3.5-11.[address] [facility] Comment on above: Performed By: #### B MP, CBC #### [facility] [address] [place] [address]. [place] [address] Finished Cloth Checker: Brooks Almazan MD CBC AUTO DIFFon 11-27-2021 BASO # 0.1 103/ul Normal 0.0-0.1 [facility] Comment on above: Performed By: #### C BC #### [facility] [address] [place] [address] Dr. Liliam Sanderson Basophils/100 WBC (Bld) 0.7 % Normal 0.2-2.0 [facility] Comment on above: Performed By: #### C BC #### [facility] [address] [place] [address] Dr. Liliam Sanderson EO # 0.2 103/ul Normal 0.0-0.7 [facility] Comment on above: Performed By: #### C BC #### [facility] [address] [place] [address] Dr. Liliam Sanderson Eosinophils/100 WBC (Bld) 2.2 % Normal 0.9-7.0 [facility] Comment on above: Performed By: #### C BC #### [facility] [address] [place] [address] Dr. Liliam Sanderson Erythrocyte distribution width (RBC) [Ratio] 12.0 % Normal 11.0-15.0 [facility] Comment on above: Performed By: #### C BC #### [facility] [address] [place] [address] Dr. Liliam Sanderson Hematocrit (Bld) [Volume fraction] 40.6 % Normal 36.0-48.0 [facility] Comment on above: Performed By: #### C BC #### [facility] [address] [place] [address] Dr. Liliam Sanderson Hemoglobin (Bld) [Mass/Vol] 13.3 g/dL Normal 12.0-16.0 [facility] Comment on above: Performed By: #### C BC #### [facility] [address] [place] [address] Dr. Liliam Sanderson IG # 0.03 10e3/ul Normal 0.00-0.03 [facility] Comment on above: Performed By: #### C BC #### [facility] [address] [place] [address] Dr. Liliam Sanderson IG % 0.3 % Normal 0.0-0.5 [facility] Comment on above: Performed By: #### C BC #### [facility] [address] [place] [address] Dr. Liliam Sanderson LYMPH # 3.2 103/ul Normal 1.2-3.8 [facility] Comment on above: Performed By: #### C BC #### [facility] [address] [place] [address] Dr. Liliam Sanderson Lymphocytes/100 WBC (Bld) 30.7 % Normal 20.5-60.0 [facility] Comment on above: Performed By: #### C BC #### [facility] [address] [place] [address] Dr. Liliam Sanderson MANUAL DIFF REQ NO Normal [facility] Comment on above: Performed By: #### C BC #### [facility] [address] [place] [address] Dr. Liliam Sanderson MCH (RBC) [Entitic mass] 30.2 pg Normal 26.7-34.0 [facility] Comment on above: Performed By: #### C BC #### [facility] [address] [address] [address] Liliam Sanderson MCHC (RBC) [Mass/Vol] 32.8 g/dL Normal 29.9-35.2 [facility] Comment on above: Performed By: #### C BC #### [facility] [address] [address] [address] Liliam Sanderson MCV (RBC) [Entitic vol] 92.1 fL Normal 81.0-99.0 [facility] Comment on above: Performed By: #### C BC #### [facility] [address] [address] [address] Liliam Sanderson MONO # 0.8 103/ul Normal 0.3-0.8 [facility] Comment on above: Performed By: #### C BC #### [facility] [address] [place] [address] Dr. Liliam Sanderson Monocytes/100 WBC (Bld) 7.5 % Normal 1.7-12.0 [facility] Comment on above: Performed By: #### C BC #### [facility] [address] [place] [address] Dr. Liliam Sanderson NEUT # 6.1 103/ul Normal 1.4-6.5 [facility] Comment on above: Performed By: #### C BC #### [facility] [address] [address] [address] Liliam Sanderson Neutrophils/100 WBC (Bld) 58.6 % Normal 43.0-75.0 [facility] Comment on above: Performed By: #### C BC #### [facility] [address] [address] [address] Liliam Sanderson Platelet mean volume (Bld) [Entitic vol] 8.8 fL Critically low 9.5-13.5 [facility] Comment on above: Performed By: #### C BC #### [facility] [address] [address] [address] Liliam Sanderson PLT 264 103/ul Normal 150-450 [facility] Comment on above: Performed By: #### C BC #### [facility] [address] [address] [address] Liliam Sanderson RBC 4.41 106/ul Normal 4.20-5.40 [facility] Comment on above: Performed By: #### C BC #### [facility] [address] [place] [address] Dr. Liliam Sanderson WBC 10.4 103/ul Normal 4.0-11.0 [facility] Comment on above: Performed By: #### C BC #### [facility] [address] [place] [address] Dr. Liliam Sanderson LIPID PROFILEon 11-27-2021 CHOL-HDL RATIO NORM SEE BELOW Normal [facility] Comment on above: Result Comment: 3.3 - 4.4 LOW RISK 4.4 - 7.1 AVERAGE RISK 7.1 - 11.0 MODERATE RISK >11.0 HIGH RISK Performed By: #### C MP, LIPID #### [facility] [address] [place] [address] Dr. Liliam Sanderson Cholesterol [Mass/Vol] 204 mg/dL Critically high <=200 [facility] Comment on above: Performed By: #### C MP, LIPID #### [facility] [address] [place] [address] Dr. Liliam Sanderson Cholesterol in HDL [Mass/Vol] 46 mg/dL Normal 40-60 [facility] Comment on above: Performed By: #### C MP, LIPID #### [facility] [address] [place] [address] Dr. Liliam Sanderson Cholesterol in LDL [Mass/Vol] 125.4 mg/dL Normal [facility] Comment on above: Performed By: #### C MP, LIPID #### [facility] [address] [place] [address] Dr. Liliam Sanderson Cholesterol.total/Chol esterol in HDL [Mass ratio] 4.4 {ratio} Normal [facility] Comment on above: Performed By: #### C MP, LIPID #### [facility] [address] [place] [address] Dr. Liliam Sanderson HDL NORMAL > or = 60 mg/dl - LOW CARDIOVASCULAR RISK <40 mg/dl - HIGH CARDIOVASCULAR RISK Normal [facility] Comment on above: Performed By: #### C MP, LIPID #### [facility] [address] [address] [address] Liliam Sanderson LDL CALC NORMAL SEE BELOW Normal [facility] Comment on above: Result Comment: <100 mg/dl OPTIMAL 100 - 129 mg/dl NEAR OR ABOVE OPTIMAL 130 - 159 mg/dl BORDERLINE HIGH 160 - 189 mg/dl HIGH >190 mg/dl VERY HIGH Performed By: #### C MP, LIPID #### [facility] [address] [address] [address] Liliam Sanderson Triglyceride [Mass/Vol] 163 mg/dL Critically high <=150 [facility] Comment on above: Performed By: #### C MP, LIPID #### [facility] [address] [address] [address] Liliam Sanderson VLDL CALC 32.6 mg/dL Normal [facility] Comment on above: Performed By: #### C MP, LIPID #### [facility] [address] [address] [address] Liliam Sanderson PROF 14(COMP METB)on 022 Albumin [Mass/Vol] 4.1 g/dL Normal 3.4-5.0 [facility] Comment on above: Performed By: #### C MP, LIPID #### [facility] [address] [address] [address] Liliam Sanderson Albumin/Globulin [Mass ratio] 1.2 {ratio} Normal [facility] Comment on above: Performed By: #### C MP, LIPID #### [facility] [address] [address] [address] Liliam Sanderson ALP [Catalytic activity/Vol] 61 U/L Normal 46-116 [facility] Comment on above: Performed By: #### C MP, LIPID #### [facility] [address] [address] [address] Liliam Sanderson ALT [Catalytic activity/Vol] 20 U/L Normal 14-59 [facility] Comment on above: Performed By: #### C MP, LIPID #### [facility] [address] [address] [address] Liliam Sanderson Anion gap [Moles/Vol] 11.4 mmol/L Normal [facility] Comment on above: Performed By: #### C MP, LIPID #### [facility] [address] [address] [address] Liliam Sanderson AST [Catalytic activity/Vol] 12 U/L Critically low 15-37 [facility] Comment on above: Performed By: #### C MP, LIPID #### [facility] [address] [address] [address] Liliam Sanderson Bilirubin [Mass/Vol] 0.5 mg/dL Normal 0.2-1.0 [facility] Comment on above: Performed By: #### C MP, LIPID #### [facility] [address] [place] [address] Dr. Liliam Sanderson Calcium [Mass/Vol] 8.9 mg/dL Normal 8.5-10.1 [facility] Comment on above: Performed By: #### C MP, LIPID #### [facility] [address] [place] [address] Dr. Liliam Sanderson Chloride [Moles/Vol] 102 mmol/L Normal 98-107 [facility] Comment on above: Performed By: #### C MP, LIPID #### [facility] [address] [place] [address] Dr. Liliam Sanderson CO2 [Moles/Vol] 28.3 mmol/L Normal 21.0-32.0 [facility] Comment on above: Performed By: #### C MP, LIPID #### [facility] [address] [place] [address] Dr. Liliam Sanderson Creatinine [Mass/Vol] 0.66 mg/dL Normal 0.55-1.02 [facility] Comment on above: Performed By: #### C MP, LIPID #### [facility] [address] [place] [address] Dr. Liliam Sanderson EGFR-AF FRENCH >60 Normal >=60 [facility] Comment on above: Performed By: #### C MP, LIPID #### [facility] [address] [address] [address] Liliam Sanderson EGFR-NON AF FRENCH >60 Normal >=60 [facility] Comment on above: Performed By: #### C MP, LIPID #### [facility] [address] [address] [address] Liliam Sanderson Globulin (S) [Mass/Vol] 3.4 g/dL Normal [facility] Comment on above: Performed By: #### C MP, LIPID #### [facility] [address] [address] [address] Liliam Sanderson Glucose [Mass/Vol] 100 mg/dL Normal 74-106 [facility] Comment on above: Performed By: #### C MP, LIPID #### [facility] [address] [place] [address] Dr. Liliam Sanderson Potassium [Moles/Vol] 3.7 mmol/L Normal 3.5-5.1 [facility] Comment on above: Performed By: #### C MP, LIPID #### [facility] Laboratory [address] [place] [address] Dr. Liliam Sanderson Protein [Mass/Vol] 7.5 g/dL Normal 6.4-8.2 [facility] Comment on above: Performed By: #### C MP, LIPID #### [facility] Laboratory [address] [place] [address] Dr. Liliam Sanderson Sodium [Moles/Vol] 138 mmol/L Normal 136-145 [facility] Comment on above: Performed By: #### C MP, LIPID #### [facility] Laboratory [address] [address] [address] Liliam Sanderson Urea nitrogen [Mass/Vol] 14.0 mg/dL Normal 7.0-18.0 [facility] Comment on above: Performed By: #### C MP, LIPID #### [facility] [address] [place] [address] Dr. Liliam Sanderson Urea nitrogen/Creatinine [Mass ratio] 21.2 mg/mg Normal [facility] Comment on above: Performed By: #### C MP, LIPID #### [facility] [address] [address] [address] Liliam Sanderson Vital Signs Date Time Vital Sign Value Performing Clinician Facility 05-10-2023 09:48-0400 Blood Pressure Location Elizabeth Lue [facility] 05-10-2023 09:48-0400 Diastolic blood pressure 67 mm[Hg] Elizabeth Lue [facility] 05-10-2023 09:48-0400 Heart rate 73 /min Elizabeth Lue [facility] 05-10-2023 09:48-0400 Respiratory rate 16 /min Elizabeth Lue [facility] 05-10-2023 09:48-0400 Systolic blood pressure 101 mm[Hg] Elizabeth Lue [facility] 02-14-2023 14:00-0400 Body height 153.67 cm Himanshu Borjas Other [facility] [employer] Other 02-14-2023 14:00-0400 Body mass index (BMI) [Ratio] 24.78 kg/m2 Himanshu Borjas Other [facility] [employer] Other 02-14-2023 14:00-0400 Body weight 58.51 kg Himanshu Borjas Other [employer] Other 02-14-2023 14:00-0400 Diastolic blood pressure 84 mm[Hg] Himanshu Borjas Other [employer] Other 02-14-2023 14:00-0400 Systolic blood pressure 142 mm[Hg] Himanshu Borjas Other [employer] Other 11-15-2022 16:30-0400 Body height 153.67 cm Himanshu Borjas Other [employer] Other 11-15-2022 16:30-0400 Body mass index (BMI) [Ratio] 26.27 kg/m2 Himanshu Scovanner Other [employer] Other 11-15-2022 16:30-0400 Body weight 62.05 kg Himanshu Scovanner Other [employer] Other 11-15-2022 16:30-0400 Diastolic blood pressure 76 mm[Hg] Himanshu Scovanner Other [employer] Other 11-15-2022 16:30-0400 Systolic blood pressure 128 mm[Hg] Himanshu Scovangurpreet Other [employer] Other Encounters Encounter Date Encounter Type Care Provider Facility Start: 07-12-2023 ambulatory Elizabeth Lott Facility:C [id number] Start: 07-05-2023 Refill 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 Phone: [facility] Comment on above: Med Refill Start: 05-24-2023 End: 05-25-2023 ambulatory Elizabeth Lott Facility:CD:[id number] Start: 05-10-2023 End: 05-11-2023 ambulatory Elizabeth Lott Facility:[facility] [place] Start: 05-10-2023 End: 05-10-2023 Patient encounter procedure Elizabeth Lott [facility] Start: 02-14-2023 End: 02-14-2023 ambulatory Himanshu Borjas Other [employer] Other Start: 02-14-2023 Office outpatient visit 15 minutes Himanshu Borjas [facility] Start: 02-01-2023 ambulatory Elizabeth Lue Facility:[facility] Start: 01-23-2023 End: 01-23-2023 ambulatory JAYA SIMON [facility] Start: 12-20-2022 End: 12-20-2022 ambulatory Fernando Castellon Facility:[facility] Start: 11-15-2022 End: 11-15-2022 ambulatory Himanshu Borjas Other [employer] Other Start: 11-15-2022 Office outpatient ne w 30 minutes Himanshu Borjas [facility] Gastroenterology Start: 09-30-2022 End: 09-30-2022 ambulatory [facility] Facility:[facility] Start: 06-21-2022 End: 06-24-2022 ambulatory JUVENAL HARRELL [facility] Start: 06-21-2022 End: 06-23-2022 Subsequent hospital visit by physician Jose Manuel Ir Nurse [address] [facility] [address] Scan Comment on above: Chest pain, unspecif ied type; Dizziness; Abnormal stress ECG Start: 11-27-2021 End: 11-28-2021 ambulatory NADIRA MARTÍNEZ Facility:H1 Procedures Date Procedure Procedure Detail Performing Clinician Start: 01-07-2023 Stented artery (finding) Elizabeth Lue Start: 03-05-2009 Extracorporeal shock wave lithotripsy of calculus of kidney Elizabeth Lue Start: 01-22-2009 Extracorporeal shock wave lithotripsy of calculus of kidney Eilzabeth Lue Start: 09-28-2006 Extracorporeal shock wave lithotripsy of calculus of kidney Elizabeth Lue Start: 12-13-2005 Urodynamic studies Ute y Lue Start: 12-01-2005 Extracorporeal shock wave lithotripsy of calculus of kidney Elizabeth Lue Start: 11-25-2005 Transurethral cystoscopy Elizabeth Lott Bladder care Elizabeth Lott Comment on above: sling Plan of Treatment Date Care Activity Detail Author Start: 06-19-2024 Adult BMI Screening Adult BMI Screen ing [facility] [employer] [facility] Start: 06-19-2024 Tobacco Screening Tobacco Screening [facility] [employer] [facility] Start: 08-17-2023 Tobacco Counseling Tobacco Counselin g [facility] [employer] [facility] Start: 03-10-2023 Influenza vaccination Influenza Vacc ine [facility] Start: 06-15-2022 Annual Wellness Visi t (AWV) Annual Wellness Visit (AWV) [facility] Start: 02-07-2022 Influenza vaccination Flu vaccine (# 1) [facility] Start: 2020 Fall Risk Screening Fall Risk Screen ing [facility] Start: 2020 Pneumococcal 65+ yea rs Vaccine (1 - PCV) Pneumococcal 65+ years Vaccine (1 - PCV) [facility] Start: 2010 Screening for osteoporosis DEXA (modify frequency per FRAX score) [facility] Start: 2005 Administration of varicella zoster vaccine Zoster (Shingles) Vaccine (1 of 2) [facility] [employer] [facility] Start: 2005 Screening for malign ant neoplasm of breast Breast cancer screen [facility] Start: 2005 Shingles vaccine (1 of 2) Hinojosa gles vaccine (1 of 2) [facility] Start: 2000 Screening for malign ant neoplasm of colon [facility] Start: 1995 Lipid panel Lipids [facility] Start: 1974 DTaP,Tdap and Td Vac cines (1 - Tdap) DTaP,Tdap and Td Vaccines (1 - Tdap) [facility] Start: 1974 DTaP/Tdap/Td vaccine (1 - Tdap) DTaP/Tdap/Td vaccine (1 - Tdap) [facility] Start: 1973 Hepatitis C screening Hepatitis C sc reen [facility] [employer] Start: 1967 Depression Screen Depression Screen [facility] [employer] Start: 1967 Depression Screening [facility] Start: 03-06-1956 COVID-19 Vaccine (#1) COVID-19 Vacci ne (#1) [facility] [employer] Start: 1955 Medicare Annual Well ness Visit Medicare [facility] Wellness [facility] End: 06-21-2022 CTA CORON EJECT FRAC WALL MOTION CTA CORON EJECT FRAC WALL MOTION Imaging Routine Chest pain, unspecified type Dizziness Abnormal stress ECG 1 Occurrences starting 06/21/2022 until 06/21/2022 [employer] Work Phone: Comment on above: 1 Occurrences starti ng 06/21/2022 until 06/21/2022 Payers Date Payer Category Payer Self-pay 2022 Private Health Insurance [id number] 2021 Medicare HUMANA MEDICARE HU[employer]NA MEDICARE - [place] RESIDENT [id number] 2021-Present [phone] [address] [address] [place] [address] [id number] 1959 Medicare [id number] 1955 Unknown [id number] [id number] 1955 Unknown [id number] 1955 Unknown [id number] 1955 Unknown [id number] [id number] 1955 Unknown [id number] [id number] 1955 Unknown [id number] [id number] Unknown [id number] Social History Date Type Detail Facility [facility] smoking consumption unknown [facility] [employer] Phone: Start: 1955 Sex Assigned At Not on file [facility] [employer] Phone: Start: 08-19-2020 End: 06-19-2023 Sex Assigned At [facility] Start: 05-10-2023 Tobacco smoking status Light t obacco smoker (finding) [facility] Start: 04-27-2022 Tobacco smoking stat [facility] Smokes tobacco daily [facility] History of tobacco use Cigarette Smoker P [employer] [facility] Start: 08-19-2020 End: 04-27-2022 Cigarettes smoked current (pack per day) - Reported 0.5 [facility] Start: 04-27-2022 Tobacco use and exposure Smoke less tobacco non-user [facility] Start: 06-19-2023 Alcohol intake Ex-drinker (finding) [facility] Housing Instability Unknown [facility] Start: 04-27-2022 Tobacco Comment has been decre asing daily [facility] Start: 05-06-2022 Alcohol Comment social--rare [facility] Functional Status Date Assessment Result Facility 05-10-2023 Functional Status N/A [facility] Clinical Notes 11-15-2022 to 07-05-2023 Telephone Encounter - Cristine Rodriguez RN - 07/05/2023 5:30 PM ESTTelephone Encounter - Cristine Rodriguez RN - 07/05/2023 5:30 PM EST Note Date & Type Note Facility 07-05-2023 Miscellaneous Notes Formattin g of this note might be different from the original. Ov 06/19/23 documented in this encounter [facility] 07-05-2023 Telephone encount er Note Ov 06/19/23 [facility] 05-10-2023 Hospital Discharg e instructions Patient Education [...] include: ?8 oz (237 mL) of milk, wkbezcg-cnqtjsxveshn-ggneu milk, and calcium-fortifiedfruit juice. Calcium-fortified means that [...] ?Spinach (cooked), rhubarb, beets, sweet potatoes, and Bulgarian chard. ?Peanuts. ?Potato chips, russian fries, and baked potatoes with skin on. ?Nuts and nut products. ?Chocolate. If you regularly take a diuretic medicine, make sure to eat at least 1 or 2 servings of fruits or vegetables that are high in potassium each day. These include: ?Avocado. ?Banana. ?Benton, prune, carrot, or tomato juice. ?Baked potato. [...] magnesium, fish oil, or vitamin B6. Take bacm-pdo-qxcccok and prescription medicines only as told by [...] Casseroles. Pizza. Lasagna. Frozen meals. Potato chips. Hungarian fries. The items listed above may not [...] provider. Document Revised: 03/07/2022 Document Reviewed: 03/07/2022 [email or web address] Patient Education 2022 CL3VER. Follow Up Care 02/01/2023 14:06:36 With:Oren BOB, Elizabeth Brown URKevyn, URO Address: When: Unknown Comments:Sched Lt ESWL/Stent [facility] 02-14-2023 Evaluation note Encounter Date Diagnosis Assessment Notes Feb, Hiatal hernia (ICD-10 - K44.9) Pt is taking omeprazole. Pt states this medication is working for her. Pt states she still some times gets acid reflux, but overall, she is doing well. Pt RTO in 6 months Feb, Esophageal stricture (ICD-10 - K22.2) [employer] Other 05-09-2023 Evaluation note* Encounter Date Diagnosis Assessment Notes Treatment Notes Treatment Clinical Notes November, GERD (gastroesophageal reflux disease) (ICD-10 - K21.9) we will obtain a records release to get records from [facility] It is recommened that patient get EGD and she argees to have this done Patient has family history of esophageal cancer November, Family history of esophageal cancer (ICD-10 - Z80.0) [employer] Other Evaluation + Plan note No data available for this section [facility] evaluation note* Diagnosis Chest pain, unspecified type Dizziness Dizziness and giddiness Abnormal stress ECG Other nonspecific abnormal cardiovascular system function study documented in this encounter [facility] Work Phone: History general Narrative - Reported* Type Description Date Medical History kidney stones Medical History hypertension Medical History gastritis Medical History Hiatal hernia Surgical History kidney stone Surgical History fx nose Surgical History ablasion Surgical History tubal ligation [employer] Other History general Narrative - Reported* Type Description Date Medical History kidney stones Medical History hypertension Medical History gastritis Medical History Hiatal hernia Surgical History kidney stone Surgical History fx nose Surgical History ablasion Surgical History tubal ligation Hospitalization History Heart procedure [employer] Other InstructionsNot on filedocumented in this encounter [facility] [employer] note No data available for this section [facility] Reason for Referral Specialty Diagnoses / Procedures Referred By Milton jimenez Referred To Contact Radiology Diagnoses Chest pain, unspecified type Dizziness Abnormal stress ECG R07.9 (ICD-10-CM) - Chest pain, unspecified type Procedures CTA CORON EJECT FRAC WALL MOTION CHG CT ANGIO HRT CORNRY ART/BYPASS GRFTS CONTRST 3D POST [id number] - CHG CT ANGIO HRT CORNRY ART/BYPASS GRFTS CONTRST 3D POST Juvenal Harrell MD [address] [place] [address] Referral ID Status Reason Start Date Expiration Date V isits Requested Visits Authorized [id number] Authorized 06/21/2022 05/07/2023 1 1 Summary Purpose [...] HRT CORNRY ART/BYPASS GRFTS CONTRST 3D POST [id number] - CHG CT ANGIO HRT CORNRY ART/BYPASS GRFTS CONTRST 3D POST Juvenal Harrell MD [address] [place] [address] Referral ID Status Reason Start Date Expiration Date V isits Requested Visits Authorized [id number] Authorized 06/21/2022 05/07/2023 1 1 Reason Comments Med Refill Care Teams (unrecognized sec tion and content) Public Health Dietitian Relationship Specialty Start Date End Date Nadira Martínez APRN - CNP [address] [place] [address] PCP - General Certified Nurse Practitioner 06/17/22 Public Health Dietitian Relationship Specialty Start Date End Date Nadira Martínez APRN-CNP [address] [place], [place] [id number] PCP - General Family Medicine 11/23/20 INFORMATION SOURCE (unrecogn ized section and content) DATE CREATED AUTHOR 06/30/2022 [facility] DATE CREATED AUTHOR AUTHOR'S ORGANIZ ATION 10/06/2022 [facility] DATE CREATED AUTHOR AUTHOR'S ORGANIZ ATION 12/26/2022 [facility] DATE CREATED AUTHOR AUTHOR'S ORGANIZ ATION 01/23/2023 [facility] DATE CREATED AUTHOR AUTHOR'S ORGANIZ ATION 07/08/2023 [facility] FOR RECORDS PERTAINING TO PATIENTS WHO ARE [...] BE BASED ON THE PRIMARY CLINICAL RECORDS. [employer] provides no warranty or guarantee of the accuracy or completeness of information in this document.
[2023-07-12] MEDS: LACTATED RINGER'S SOLUTION 1,000 ML 50 ML IV ×2 (11:54→14:08)
[2023-07-12] MEDS: CEFAZOLIN SODIUM/DEXTROSE,ISO 2 GM/50 ML PIGGYBACK IV (12:42)
[2023-07-12] MEDS: IOHEXOL 240 MG/ML - 10 ML VIAL INJ (13:55)
--- NOTE | 2023-07-12 14:20 | PM.URSON ---
Urology Surgery Operative Note Operative Note Procedure Date: 07/12/23 Time Out Performed: yes Pre-op Diagnosis: Left kidney stones Post-op Diagnosis: other (1. Left kidney stones, 2. Left calyceal diverticulum, infundibular stenosis) Procedures performed: 1. Cystoscopy, left retrograde pyelogram, ureteroscopy with laser lithotripsy/stone extraction, stent placement 2. Incision of calyceal diverticulum Anesthesia: GETA (LMA, Dr. Daniel Velazquez ) Primary Surgeon: Elizabeth Lott Complications: none Estimated blood loss (mL): 1 Findings: Radioopaque left mid upper stone - noted to be behind narrow infundibulum within calyceal diverticulum s/p laser incision of infundibulum and of large stone, basket extracted fragments. Left lower pole stones and small fragment in upper pole removed. L RPG- No hydronephrosis, extravasation or other filling defects. Bifid renal pelvis Cystocele to level of introitus. Specimens: left kidney stones Drains: 4.9Fr x 22-32 cm JJ left ureteral stent Incision: none Indications for Procedures: 67 year old female recently diagnosed with multiple left kidney stones (9x6 mm left mid pole, 7x5 mm upper pole, 5x4mm lower pole) s/p L ESWL and stent placement. Upper pole stone responded well however mid pole stone did not. After discussion of risks/benefits of management options, she elected to proceed with definitive stone treatment of cystoscopy, left retrograde pyelogram, ureteroscopy with laser lithotripsy/stone extraction, ureteral stent exchange under general anesthesia. Risks were discussed including but not limited to bleeding, pain, infection, damage to surrounding structures, inability to treat the stone/place a stent, and need for additional procedures. The patient understands the stent is not permanent and needs to be removed or exchanged within 3 months to prevent encrustation, infection, invasive procedures and/or permanent renal damage. Detailed description of Procedure: After informed consent was obtained, the patient was brought to the operating room and transferred onto the operating table in supine position. Sequential compression devices were placed on bilateral lower extremities. The patient received the appropriate dose of preoperative IV antibiotics and general anesthesia was induced. They were positioned in modified dorsolithotomy with the appropriate pressure points padded, prepped, and draped in the usual sterile fashion for this procedure. An operative safety timeout was performed confirming the patient's identity, laterality and procedure, and all present agreed to proceed. I began by inserting a 22 Nigerian rigid cystoscope with 30 degree lens into the patient's urethra and bladder without difficulty. There were no bladder tumors, lesions, or stones. Bilateral ureteral orifices were orthotopic and patent. I turned my attention to the left ureteral orifice and the indwelling stent was brought to the meatus with flexible graspers. A sensorwire was inserted through the stent up, however met resistance and unable to go through stent. The stent was removed and the wire was inserted under direct vision into the left UO up to the kidney based on fluoroscopy. An 11/13 Nigerian by 36 cm ureteral access sheath was inserted over the wire in a sequential fashion to gain access to the renal pelvis. Next a flexible ureteroscope was inserted through the sheath and advanced to the renal pelvis under fluoroscopic guidance. A renoscopy was performed and the smaller stones in the upper and lower poles were basket extracted with a 1.8 tipless nitinol basket. The upper mid calyceal radiopaque stone was behind a pinpoint infundibulum. Basket unable to be inserted through this. The wire was passed into this space and a 270 ?m Thulium YAG laser fiber was used to incise the infundibulum in a radial fashion. The ureteroscope was able to enter the calyx and the near 1 cm stone was laser lithotripsied. The basket was used to remove the fragments. After the stones were adequately treated, a full renoscopy was performed confirming no significant residual stones or fragments remained. Contrast was injected to assist with mapping for the renoscopy. The wire was reinserted and a pull down ureteroscopy was performed confirming no stones remained in the ureter. The wire was backloaded through the cystoscope and 4.9Fr x 22-32cm JJ variable length ureteral stent was advanced over the wire, noting adequate curl in the renal pelvis and bladder on fluoroscopic and direct visualization. The bladder was drained and inspected one final time to ensure adequate position of stent and no undue trauma to the bladder was done. The stones were sent for pathology and the cystoscope was removed. The patient tolerated the procedure well without complication. The patient was awakened from anesthesia and sent to PACU in stable condition. Plan: Discharge home with stent pain medications. Follow up within 1-2 weeks for in-office cystoscopy, stent removal. Prophylactic antibiotics provided. Other Provider present: No Post Operative care instructions: See discharge instructions Attending Doc Confirm Attending Attestation: Yes
[2023-07-18 20:08] LABS: Calcium Oxalate Dihydrate 10 % (.); Calcium Oxalate Monohydrate 90 % (.)
== END 2023-07-12 15:27 | disposition home or self-care (01) ==
PROVIDERS: Visit Provider Urology
PROC: (CPT 52356; principal; 2023-07-12 12:30)
DX: N20.0 Calculus of kidney (principal); R23.3 Spontaneous ecchymoses; Z98.890 Other specified postprocedural states; F41.9 Anxiety disorder, unspecified; K21.9 Gastro-esophageal reflux disease without esophagitis; E78.5 Hyperlipidemia, unspecified; I10 Essential (primary) hypertension; I25.10 Atherosclerotic heart disease of native coronary artery without angina pectoris; Z87.442 Personal history of urinary calculi; Z98.51 Tubal ligation status; Z95.5 Presence of coronary angioplasty implant and graft; Z90.710 Acquired absence of both cervix and uterus; N28.89 Other specified disorders of kidney and ureter; Z79.82 Long term (current) use of aspirin; Z79.02 Long term (current) use of antithrombotics/antiplatelets; Z87.440 Personal history of urinary (tract) infections; N81.10 Cystocele, unspecified; R35.1 Nocturia; N39.41 Urge incontinence; F17.210 Nicotine dependence, cigarettes, uncomplicated; N95.2 Postmenopausal atrophic vaginitis; R39.9 Unspecified symptoms and signs involving the genitourinary system
CPT/HCPCS: 52356; 36415; 74420; 82365; 99281; 99999; J0690; J1100; J1885; J2250; J2405; J2704; J3010; Q9966

== ENCOUNTER 2023-07-12 22:57 | Emergency (ER) | payer MEDICARE, SELFPAY ==
[2023-07-12 23:01] VITALS: BP 177/89; PULSE 100; RESP 16; TEMP 36.4; O2SAT 95; BMI 24.6
--- OUTSIDE RECORDS SUMMARY | 2023-07-12 23:02 | XMS_ITS | CCD ---
Author Name Unknown Address [facility] [place] [address] Organization [facility] Care Team Providers Care Jewel Bearing Grinder Name Role Phone Nadira Modi APRN, CNP Primary Care Provider JUVENAL HARRELL Referring Unavailable NADIRA MARTÍNEZ Primary Care Unavailable [facility] Unava ilable MIKHAIL GRANT Consulting Unavailable MIKHAIL GRANT Admitting Unavailable MIKHAIL GRANT Attending Unavailable NADIRA MARTÍNEZ Admitting Unavailable NADIRA MARTÍNEZ Attending Unavailable [facility] Primary Care Unava ilable MARILYNN, NADIRA Consulting Unavailable Himanshu Borjas Unavailable Fernando Castellon Attending Unavailable Fernando Castellon Admitting Unavailable Ndaira Martínez Primary Care Unavailable JAYA SIMON Admitting [...] Medication Allergies] Propensity to adverse reactions (disorder) [facility] Repository Medications Current Medications Medication [...] hr tablet Indications: 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 #1.00TIFF Normal [facility] RAD - MISCon 07-06-2023 RAD - MISC [id number] #1.00TIFF Normal [facility] Insurance Correspondenceon 1 09-05-2022 Insurance Correspondence [id number] 08#1.00TIFF Normal [facility] RAD - MISCon 05-30-2023 [facility] [id number] #1.00TIFF Normal [facility] Operative Reporton Operative Report [id number]# 1.00TIFF Normal [facility] RAD - MISCon 05-24-2023 [facility] [id number] #1.00TIFF Normal [facility] Consultation Noteon 05-22-20 Consultation Note [id number]# 1.00TIFF Normal [facility] Lab Reportson 05-18-2023 Lab Reports [id number] #1.00TIFF Normal [facility] Lab Reports [id number] #1.00TIFF Normal [facility] Lab Reports [id number] #1.00TIFF Normal [facility] Lab Reports [id number] #1.00TIFF Normal [facility] Consultation Noteon 05-15-20 Consultation Note [id number] #1.00TIFF Normal [facility] ED Note-Physicianon 05-12-20 ED Note-Physician [id number] #1.00TIFF Normal [facility] Formson 05-11-2023 Forms [id number] #1.00TIFF Normal [facility] Ambulatory Visit Summaryon 07-10-2022 Ambulatory Visit Summary SLY COY :1955 Visit Date:05/10/2023 Ambulatory Visit Instructions Your Diagnosis Kidney stones Vaginal atrophy UTI symptoms Personal history of kidney stones Female bladder prolapse Tests Performed Urnls Dip Stick Auto w/o Microscopy POC 29615 Your Care Team Attending Physician - Oren [...] then 2x/ week for maintainence Pickup at [employer] 7901 Unchanged alprazolam By Mouth Contact prescribing physician [...] Pharmacy Information [facility]: [phone], [place] [phone] Test Results Urnls Dip Stick Auto w/o Microscopy POC 61783 (05/10/2023) Bilirubin Urine Dipstick - Negative Blood Urine Dipstick - 2+ Moderate Glucose Urine Dipstick - Negative Ketones Urine Dipstick - Negative Leukocytes Urine Dipstick - Negative Nitrite Urine Dipstick - Negative Protein Urine Dipstick - Negative Specific [place] Urine Dipstick - 1.025 Urine Appearance Urine [...] you. S (more content not included)... Normal [facility] Formson 05-10-2023 Forms [id number] #1.00TIFF [facility] Insurance Correspondenceon 1 07-10-2022 Insurance Correspondence [id number] 3#1.00TIFF [facility] Patient Educationon 05-10-20 Patient Education [...] Spinach (cooked), rhubarb, beets, sweet potatoes, and Citizen Of [place] chard. ? Peanuts. ? Potato chips, cuban fries, and baked potatoes with skin on. ? Nuts and nut products. ? Chocolate. ? If you regularly take a diuretic medicine, make sure to eat at least 1 or 2 servings of fruits or vegetables that are high in potassium each day. These include: ? Avocado. ? Banana. ? [place], prune, carrot, or tomato juice. ? Baked [...] fish oil, or vitamin B6. ? Take efdr-psw-sqhbmbj and prescription medicines only as told by your health care provider. These include supplements. What foods should I limit? Limit your in (more content not included)... Normal [facility] Screenson 05-10-2023 Screens [id number] #1.00TIFF Normal [facility] Urology Office/Clinic Noteon 05-10-2023 Urology Office/Clinic Note Chief Complaint kidney stones HPI Staff Pt is a new pt. Last seen in our office 02/23/09 by PRW due to Kidney Stones. S/P Lt ESWL 8/27/09. recently patient has been seeing Dr De Jesus in [place] but his practice no longer accepts pt's [...] ESWL, stag (more content not included)... Normal [facility] Comment on above: Result Comment: Elec tronically Signed By: Oren BOB, Elizabeth Brown\.br\Date and Time Signed: 05/10/23 12:16 EDT\.br\Electronically Co-Signed By: Shahana Mazariegos\.br\Date and Time Co-Signed: 05/10/23 10:28 EDT RAD - MISCon 03-27-2023 RAD - MIS [id number] 1.00CD:127 Normal [facility] Basic Metabolic Profon 01-23 Anion gap [Moles/Vol] 10 mmol/L Normal 9-17 [facility] Comment on above: Performed By: #### B GAL, CBC #### [facility] [address] [facility] [place] [address] Executive Account Manager: Brooks Almazan MD BUN/CRE Ratio 30 High 9-20 [facility] Comment on above: Performed By: #### B MP, CBC #### [facility] [address] [facility] [place] [address] Executive Account Manager: Brooks Almazan MD Calcium [Mass/Vol] 8.9 mg/dL Normal 8.6-10.4 [facility] Comment on above: Performed By: #### B MP, CBC #### [facility] [address] [facility] [place] [address] Executive Account Manager: Brooks Almazan MD Chloride [Moles/Vol] 104 mmol/L Normal 98-107 [facility] Comment on above: Performed By: #### B MP, CBC #### [facility] [address] [place] [address] Executive Account Manager: Brooks Almazan MD CO2 [Moles/Vol] 27 mmol/L Normal 20-31 [facility] Comment on above: Performed By: #### B MP, CBC #### [facility] [address] [place] [address] Executive Account Manager: Brooks Almazan MD Creatinine [Mass/Vol] 0.5 mg/dL Normal 0.5-0.9 [facility] Comment on above: Performed By: #### B MP, CBC #### [facility] [place] [address] Executive Account Manager: Brooks Almazan MD GFR/1.73 sq M.predicted among non-blacks MDRD (S/P/Bld) [Vol rate/Area] mL/min/{1.73_m2} Normal >60 [facility] Comment on above: Result Comment: [...] Performed By: #### B MP, CBC #### [facility] [address] [facility] [place] [place] [address] Executive Account Manager: Brooks Almazan MD Glucose [Mass/Vol] 97 mg/dL Normal 70-99 [facility] Comment on above: Performed By: #### B MP, CBC #### [facility] [address] [place], [place] [address] Executive Account Manager: Brooks Almazan MD Potassium [Moles/Vol] 4.8 mmol/L Normal 3.7-5.3 [facility] Comment on above: Result Comment: SPEC IMEN SLIGHTLY HEMOLYZED, RESULTS MAY BE ADVERSELY AFFECTED. Performed By: #### B MP, CBC #### [facility] [address] [facility] [place] [address] Executive Account Manager: Brooks Almazan MD Sodium [Moles/Vol] 141 mmol/L Normal 135-144 [facility] Comment on above: Performed By: #### B MP, CBC #### [facility] [address] [place] [address] Executive Account Manager: Brooks Almazan MD Urea nitrogen [Mass/Vol] 15 mg/dL Normal 8-23 [facility] Comment on above: Performed By: #### B MP, CBC #### [facility] [address] [place] [address] Executive Account Manager: Brooks Almazan MD CBCon 01-23-2023 Erythrocyte distribution width (RBC) [Ratio] 12.4 % Normal 11.8-14.4 [facility] Comment on above: Performed By: #### B MP, CBC #### [facility] [address] [place] [address]. [place] [address] Executive Account Manager: Brooks Almazan MD Hematocrit (Bld) [Volume fraction] 40.3 % Normal 36.3-47.1 [facility] Comment on above: Performed By: #### B MP, CBC #### [facility] [address] [place] [address]. [place] [address] Executive Account Manager: Brooks Almazan MD Hemoglobin (Bld) [Mass/Vol] 13.1 g/dL Normal 11.9-15.1 [facility] Comment on above: Performed By: #### B MP, CBC #### [facility] [address] [facility] [place] [address] Executive Account Manager: Brooks Almazan MD MCH (RBC) [Entitic mass] 30.0 pg Normal 25.2-33.5 [facility] Comment on above: Performed By: #### B MP, CBC #### [facility] [address] [place] [address]. [place] [address] Executive Account Manager: Brooks Almazan MD MCHC (RBC) [Mass/Vol] 32.5 g/dL Normal 28.4-34.8 [facility] Comment on above: Performed By: #### B MP, CBC #### [facility] [address] [place] [address] Executive Account Manager: Brooks Almazan MD MCV (RBC) [Entitic vol] 92.4 fL Normal 82.6-102.9 [facility] Comment on above: Performed By: #### B MP, CBC #### [facility] [address] [place] [address] Executive Account Manager: Brooks Almazan MD NRBC Automated 0.0 per 100 WBC Normal 0.0 [facility] Comment on above: Performed By: #### B MP, CBC #### [facility] [address] [place] [address]. [place] [address] Executive Account Manager: Brooks Almazan MD Platelet mean volume (Bld) [Entitic vol] 9.3 fL Normal 8.1-13.5 [facility] Comment on above: Performed By: #### B MP, CBC #### [facility] [address] [place] [address] Executive Account Manager: Brooks Almazan MD Platelets (Bld) [#/Vol] 234 10*3/uL Normal 138-453 [facility] Comment on above: Performed By: #### B MP, CBC #### [facility] [address] [facility] [place] [address] Executive Account Manager: Brooks Almazan MD RBC (Bld) [#/Vol] 4.36 10*6/uL Normal 3.95-5.11 [facility] Comment on above: Performed By: #### B MP, CBC #### [facility] [address] [facility] [place] [address] Executive Account Manager: Brooks Almazan MD WBC (Bld) [#/Vol] 7.1 10*3/uL Normal 3.5-11.3 [facility] Comment on above: Performed By: #### B MP, CBC #### [facility] [address] [place] [address]. [place] [address] Executive Account Manager: Brooks Almazan MD CBC AUTO DIFFon 11-27-2021 BASO # 0.1 103/ul Normal 0.0-0.1 [facility] Comment on above: Performed By: #### C BC #### [facility] [address] [place] [address] Dr. Liliam Sanderson Basophils/100 WBC (Bld) 0.7 % Normal 0.2-2.0 [facility] Comment on above: Performed By: #### C BC #### [facility] [address] [place] [address] Dr. Liliam Sanderson EO # 0.2 103/ul Normal 0.0-0.7 [facility] Comment on above: Performed By: #### C BC #### [facility] [address] [place] [address] Dr. Liliam Sanderson Eosinophils/100 WBC (Bld) 2.2 % Normal 0.9-7.0 [facility] Comment on above: Performed By: #### C BC #### [facility] [address] [place] [address] Dr. Liliam Sanderson Erythrocyte distribution width (RBC) [Ratio] 12.0 % Normal 11.0-15.0 [facility] Comment on above: Performed By: #### C BC #### [facility] [address] [place] [address] Dr. Liliam Sanderson Hematocrit (Bld) [Volume fraction] 40.6 % Normal 36.0-48.0 [facility] Comment on above: Performed By: #### C BC #### [facility] [address] [place] [address] Dr. Liliam Sanderson Hemoglobin (Bld) [Mass/Vol] 13.3 g/dL Normal 12.0-16.0 [facility] Comment on above: Performed By: #### C BC #### [facility] [address] [place] [address] Dr. Liliam Sanderson IG # 0.03 10e3/ul Normal 0.00-0.03 [facility] Comment on above: Performed By: #### C BC #### [facility] [address] [place] [address] Dr. Liliam Sanderson IG % 0.3 % Normal 0.0-0.5 [facility] Comment on above: Performed By: #### C BC #### [facility] [address] [place] [address] Dr. Liliam Sanderson LYMPH # 3.2 103/ul Normal 1.2-3.8 [facility] Comment on above: Performed By: #### C BC #### [facility] [address] [place] [address] Dr. Liliam Sanderson Lymphocytes/100 WBC (Bld) 30.7 % Normal 20.5-60.0 [facility] Comment on above: Performed By: #### C BC #### [facility] [address] [place] [address] Dr. Liliam Sanderson MANUAL DIFF REQ NO Normal [facility] Comment on above: Performed By: #### C BC #### [facility] [address] [place] [address] Dr. Liliam Sanderson MCH (RBC) [Entitic mass] 30.2 pg Normal 26.7-34.0 [facility] Comment on above: Performed By: #### C BC #### [facility] [address] [address] [address] Liliam Sanderson MCHC (RBC) [Mass/Vol] 32.8 g/dL Normal 29.9-35.2 [facility] Comment on above: Performed By: #### C BC #### [facility] [address] [address] [address] Liliam Sanderson MCV (RBC) [Entitic vol] 92.1 fL Normal 81.0-99.0 [facility] Comment on above: Performed By: #### C BC #### [facility] [address] [address] [address] Liliam Sanderson MONO # 0.8 103/ul Normal 0.3-0.8 [facility] Comment on above: Performed By: #### C BC #### [facility] [address] [place] [address] Dr. Liliam Sanderson Monocytes/100 WBC (Bld) 7.5 % Normal 1.7-12.0 [facility] Comment on above: Performed By: #### C BC #### [facility] [address] [place] [address] Dr. Liliam Sanderson NEUT # 6.1 103/ul Normal 1.4-6.5 [facility] Comment on above: Performed By: #### C BC #### [facility] [address] [address] [address] Liliam Sanderson Neutrophils/100 WBC (Bld) 58.6 % Normal 43.0-75.0 [facility] Comment on above: Performed By: #### C BC #### [facility] [address] [address] [address] Liliam Sanderson Platelet mean volume (Bld) [Entitic vol] 8.8 fL Critically low 9.5-13.5 [facility] Comment on above: Performed By: #### C BC #### [facility] [address] [address] [address] Liliam Sanderson PLT 264 103/ul Normal 150-450 [facility] Comment on above: Performed By: #### C BC #### [facility] [address] [address] [address] Liliam Sanderson RBC 4.41 106/ul Normal 4.20-5.40 [facility] Comment on above: Performed By: #### C BC #### [facility] [address] [place] [address] Dr. Liliam Sanderson WBC 10.4 103/ul Normal 4.0-11.0 [facility] Comment on above: Performed By: #### C BC #### [facility] [address] [place] [address] Dr. Liliam Sanderson LIPID PROFILEon 11-27-2021 CHOL-HDL RATIO NORM SEE BELOW Normal [facility] Comment on above: Result Comment: 3.3 - 4.4 LOW RISK 4.4 - 7.1 AVERAGE RISK 7.1 - 11.0 MODERATE RISK >11.0 HIGH RISK Performed By: #### C MP, LIPID #### [facility] [address] [place] [address] Dr. Liliam Sanderson Cholesterol [Mass/Vol] 204 mg/dL Critically high <=200 [facility] Comment on above: Performed By: #### C MP, LIPID #### [facility] [address] [place] [address] Dr. Liliam Sanderson Cholesterol in HDL [Mass/Vol] 46 mg/dL Normal 40-60 [facility] Comment on above: Performed By: #### C MP, LIPID #### [facility] [address] [place] [address] Dr. Liliam Sanderson Cholesterol in LDL [Mass/Vol] 125.4 mg/dL Normal [facility] Comment on above: Performed By: #### C MP, LIPID #### [facility] [address] [place] [address] Dr. Liliam Sanderson Cholesterol.total/Chol esterol in HDL [Mass ratio] 4.4 {ratio} Normal [facility] Comment on above: Performed By: #### C MP, LIPID #### [facility] [address] [place] [address] Dr. Liliam Sanderson HDL NORMAL > or = 60 mg/dl - LOW CARDIOVASCULAR RISK <40 mg/dl - HIGH CARDIOVASCULAR RISK Normal [facility] Comment on above: Performed By: #### C MP, LIPID #### [facility] [address] [address] [address] Liliam Sanderson LDL CALC NORMAL SEE BELOW Normal [facility] Comment on above: Result Comment: <100 mg/dl OPTIMAL 100 - 129 mg/dl NEAR OR ABOVE OPTIMAL 130 - 159 mg/dl BORDERLINE HIGH 160 - 189 mg/dl HIGH >190 mg/dl VERY HIGH Performed By: #### C MP, LIPID #### [facility] [address] [address] [address] Liliam Sanderson Triglyceride [Mass/Vol] 163 mg/dL Critically high <=150 [facility] Comment on above: Performed By: #### C MP, LIPID #### [facility] [address] [address] [address] Liliam Sanderson VLDL CALC 32.6 mg/dL Normal [facility] Comment on above: Performed By: #### C MP, LIPID #### [facility] [address] [address] [address] Liliam Sanderson PROF 14(COMP METB)on 022 Albumin [Mass/Vol] 4.1 g/dL Normal 3.4-5.0 [facility] Comment on above: Performed By: #### C MP, LIPID #### [facility] [address] [address] [address] Liliam Sanderson Albumin/Globulin [Mass ratio] 1.2 {ratio} Normal [facility] Comment on above: Performed By: #### C MP, LIPID #### [facility] [address] [address] [address] Liliam Sanderson ALP [Catalytic activity/Vol] 61 U/L Normal 46-116 [facility] Comment on above: Performed By: #### C MP, LIPID #### [facility] [address] [address] [address] Liliam Sanderson ALT [Catalytic activity/Vol] 20 U/L Normal 14-59 [facility] Comment on above: Performed By: #### C MP, LIPID #### [facility] [address] [address] [address] Liliam Sanderson Anion gap [Moles/Vol] 11.4 mmol/L Normal [facility] Comment on above: Performed By: #### C MP, LIPID #### [facility] [address] [address] [address] Liliam Sanderson AST [Catalytic activity/Vol] 12 U/L Critically low 15-37 [facility] Comment on above: Performed By: #### C MP, LIPID #### [facility] [address] [address] [address] Liliam Sanderson Bilirubin [Mass/Vol] 0.5 mg/dL Normal 0.2-1.0 [facility] Comment on above: Performed By: #### C MP, LIPID #### [facility] [address] [place] [address] Dr. Liliam Sanderson Calcium [Mass/Vol] 8.9 mg/dL Normal 8.5-10.1 [facility] Comment on above: Performed By: #### C MP, LIPID #### [facility] [address] [place] [address] Dr. Liliam Sanderson Chloride [Moles/Vol] 102 mmol/L Normal 98-107 [facility] Comment on above: Performed By: #### C MP, LIPID #### [facility] [address] [place] [address] Dr. Liliam Sanderson CO2 [Moles/Vol] 28.3 mmol/L Normal 21.0-32.0 [facility] Comment on above: Performed By: #### C MP, LIPID #### [facility] [address] [place] [address] Dr. Liliam Sanderson Creatinine [Mass/Vol] 0.66 mg/dL Normal 0.55-1.02 [facility] Comment on above: Performed By: #### C MP, LIPID #### [facility] [address] [place] [address] Dr. Liliam Sanderson EGFR-AF [place] >60 Normal >=60 [facility] Comment on above: Performed By: #### C MP, LIPID #### [facility] [address] [address] [address] Liliam Sanderson EGFR-NON AF [place] >60 Normal >=60 [facility] Comment on above: Performed By: #### C MP, LIPID #### [facility] [address] [address] [address] Liliam Sanderson Globulin (S) [Mass/Vol] 3.4 g/dL Normal [facility] Comment on above: Performed By: #### C MP, LIPID #### [facility] [address] [address] [address] Liliam Sanderson Glucose [Mass/Vol] 100 mg/dL Normal 74-106 [facility] Comment on above: Performed By: #### C MP, LIPID #### [facility] [address] [place] [address] Dr. Liliam Sanderson Potassium [Moles/Vol] 3.7 mmol/L Normal 3.5-5.1 [facility] Comment on above: Performed By: #### C MP, LIPID #### [facility] [address] [place] [address] Dr. Liliam Sanderson Protein [Mass/Vol] 7.5 g/dL Normal 6.4-8.2 [facility] Comment on above: Performed By: #### C MP, LIPID #### [facility] [address] [place] [address] Dr. Liliam Sanderson Sodium [Moles/Vol] 138 mmol/L Normal 136-145 [facility] Comment on above: Performed By: #### C MP, LIPID #### [facility] [address] [address] [address] Liliam Sanderson Urea nitrogen [Mass/Vol] 14.0 mg/dL Normal 7.0-18.0 [facility] Comment on above: Performed By: #### C MP, LIPID #### [facility] [address] [place] [address] Dr. Liliam Sanderson Urea nitrogen/Creatinine [Mass ratio] 21.2 mg/mg Normal [facility] [facility] Comment on above: Performed By: #### C MP, LIPID #### [facility] [address] [address] [address] Liliam Sanderson Vital Signs Date Time Vital Sign Value Performing Clinician Facility 05-10-2023 09:48-0400 Blood Pressure Location Elizabeth Lue [facility] 05-10-2023 09:48-0400 Diastolic blood pressure 67 mm[Hg] Elizabeth Lue [facility] 05-10-2023 09:48-0400 Heart rate 73 /min Elizabeth Lue [facility] 05-10-2023 09:48-0400 Respiratory rate 16 /min Elizabeth Lue [facility] 05-10-2023 09:48-0400 Systolic blood pressure 101 mm[Hg] Elizabeth Lue [facility] 02-14-2023 14:00-0400 Body height 153.67 cm Himanshu Borjas Other [facility] [employer] Other 02-14-2023 14:00-0400 Body mass index (BMI) [Ratio] 24.78 kg/m2 Himanshu Borjas Other [facility] Other 02-14-2023 14:00-0400 Body weight 58.51 kg Himanshu Borjas Other [email or web address] Other 02-14-2023 14:00-0400 Diastolic blood pressure 84 mm[Hg] Himanshu Borjas Other [facility] Other 02-14-2023 14:00-0400 Systolic blood pressure 142 mm[Hg] Himanshu Borjas Other [email or web address] Other 11-15-2022 16:30-0400 Body height 153.67 cm Himanshu Borjas Other [email or web address] Other 11-15-2022 16:30-0400 Body mass index (BMI) [Ratio] 26.27 kg/m2 Himanshu Scovanner Other [email or web address] Other 11-15-2022 16:30-0400 Body weight 62.05 kg Himanshu Scovanner Other [email or web address] Other 11-15-2022 16:30-0400 Diastolic blood pressure 76 mm[Hg] Himanshu Scovanner Other [email or web address] Other 11-15-2022 16:30-0400 Systolic blood pressure 128 mm[Hg] Himanshu Scovangurpreet Other [email or web address] Other Encounters Encounter Date Encounter Type Care Provider Facility Start: 07-12-2023 ambulatory Elizabeth Lott Facility:C D:[id number] Start: 07-05-2023 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: [facility] Comment on above: Med Refill Start: 05-24-2023 End: 05-25-2023 ambulatory Elizabeth Lott Facility:CD:[id number] Start: 05-10-2023 End: 05-11-2023 ambulatory Elizabeth Lott Facility:[facility] [place] Start: 05-10-2023 End: 05-10-2023 Patient encounter procedure Elizabeth Lott [facility] [place] Start: 02-14-2023 End: 02-14-2023 ambulatory Himanshu Borjas Other [email or web address] Other Start: 02-14-2023 Office outpatient visit 15 minutes Himanshu Borjas [facility] Start: 02-01-2023 ambulatory Elizabeth Lue Facility:[facility] Start: 01-23-2023 End: 01-23-2023 ambulatory JAYA SIMON [facility] Start: 12-20-2022 End: 12-20-2022 ambulatory Fernando Castellon Facility:[facility] Start: 11-15-2022 End: 11-15-2022 ambulatory Himanshu Borjas Other [email or web address] Other Start: 11-15-2022 Office outpatient ne w 30 minutes Himanshu Borjas [facility] Gastroenter[facility] Start: 09-30-2022 End: 09-30-2022 ambulatory [facility] Facility:[facility] Start: 06-21-2022 End: 06-24-2022 ambulatory JUVENAL HARRELL [facility] Start: 06-21-2022 End: 06-23-2022 Subsequent hospital visit by physician Jose Manuel Ir Nurse 1 [facility] CT Scan Comment on above: Chest [...] Adult BMI Screening Adult BMI Screen ing [facility] Start: 06-19-2024 Tobacco Screening Tobacco Screening [facility] Start: 08-17-2023 Tobacco Counseling Tobacco Counselin g [facility] Start: 03-10-2023 Influenza vaccination Influenza Vacc ine [facility] Start: 06-15-2022 Annual Wellness Visi t (AWV) [facility] Start: 02-07-2022 Influenza vaccination Flu vaccine (# 1) [facility] [employer] [facility] Start: 2020 Fall Risk Screening Fall Risk Screen ing [facility] Start: 2020 Pneumococcal 65+ yea rs Vaccine (1 - PCV) Pneumococcal 65+ years Vaccine (1 - PCV) [facility] [employer] [facility] Start: 2010 Screening for osteoporosis DEXA (modify frequency per FRAX score) [facility] [employer] [facility] Start: 2005 Administration of varicella zoster vaccine Zoster (Shingles) Vaccine (1 of 2) [facility] Start: 2005 Screening for malign ant neoplasm of breast Breast cancer screen [facility] Start: 2005 Shingles vaccine (1 of 2) Hinojosa gles vaccine (1 of 2) [facility] Start: 2000 Screening for malign ant neoplasm of colon [facility] [employer] [facility] Start: 1995 Lipid panel Lipids [facility] Start: 1974 DTaP,Tdap and Td Vac cines (1 - Tdap) DTaP,Tdap and Td Vaccines (1 - Tdap) [facility] Start: 1974 DTaP/Tdap/Td vaccine (1 - Tdap) DTaP/Tdap/Td vaccine (1 - Tdap) [facility] Start: 1973 Hepatitis C screening Hepatitis C sc reen [facility] [employer] Start: 1967 Depression Screen Depression Screen [facility] [email or web address] Start: 1967 Depression Screening Depression Scre [place]ing [facility] Start: 03-06-1956 COVID-19 Vaccine (#1) COVID-19 Vacci ne (#1) [facility] [employer] Start: 1955 Medicare Annual Well ness Visit Medicare [facility] End: 06-21-2022 CTA CORON EJECT FRAC WALL MOTION CTA CORON EJECT FRAC WALL MOTION Imaging Routine Chest pain, unspecified type Dizziness Abnormal stress ECG 1 Occurrences starting 06/21/2022 until 06/21/2022 [employer] Work Phone: Comment on above: 1 Occurrences starti ng 06/21/2022 until 06/21/2022 Payers Date Payer Category Payer Self-pay 2022 Private Health Insurance [id number] 2021 Medicare HUMANA MEDICARE HUMANA MEDICARE - ID RESIDENT [id number] 2021-Present [phone] [address] [address] [place] [address] [id number] 1959 Medicare [id number] 1955 Unknown [id number] [id number] 1955 Unknown [id number] [id number] 1955 Unknown [id number] 1955 Unknown [id number] [id number] 1955 Unknown [id number] [id number] 1955 Unknown [id number] [id number] Unknown [id number] [id number] Social History Date Type Detail Facility Tobacco smoking stat RUSTIS Tobacco smoking consumption unknown [facility] [employer] Phone: Start: 1955 Sex Assigned At Not on file [facility] [employer] Phone: Start: 08-19-2020 End: 06-19-2023 Sex Assigned At [facility] Start: 05-10-2023 Tobacco smoking status Light t obacco smoker (finding) [facility] Start: 04-27-2022 Tobacco smoking stat [facility] Smokes tobacco daily [facility] History of tobacco use Cigarette Smoker [employer] [facility] Start: 08-19-2020 End: 04-27-2022 Cigarettes smoked current (pack per day) - Reported 0.5 [facility] Start: 04-27-2022 Tobacco use and exposure Smoke less tobacco non-user [facility] Start: 06-19-2023 Alcohol intake Ex-drinker (finding) [facility] Housing Instability Unknown [facility] Start: 04-27-2022 Tobacco Comment has been decre asing daily [facility] Start: 05-06-2022 Alcohol Comment social--rare [facility] Functional Status Date Assessment Result Facility 05-10-2023 Functional Status N/A [facility] Clinical Notes 11-15-2022 to 07-05-2023 Telephone Encounter - Cristine Rodriguez RN - 07/05/2023 5:30 PM ESTTelephone Encounter - Cristine Rodriguez RN - 07/05/2023 5:30 PM EST Note Date & Type Note Facility 07-05-2023 Miscellaneous Notes Formattin g of this note might be different from the original. Ov 06/19/23 documented in this encounter [facility] 07-05-2023 Telephone encount er Note Ov 06/19/23 [facility] 05-10-2023 Hospital Discharg e instructions Patient [...] include: ?8 oz (237 mL) of milk, hjysayk-hmoamynobtuw-lkbwg milk, and calcium-fortifiedfruit juice. Calcium-fortified means that [...] ?Spinach (cooked), rhubarb, beets, sweet potatoes, and Citizen Of [place] chard. ?Peanuts. ?Potato chips, cuban fries, and baked potatoes with skin on. ?Nuts and nut products. ?Chocolate. If you regularly take a diuretic medicine, make sure to eat at least 1 or 2 servings of fruits or vegetables that are high in potassium each day. These include: ?Avocado. ?Banana. ?[place], prune, carrot, or tomato juice. ?Baked potato. [...] magnesium, fish oil, or vitamin B6. Take ghzr-taa-fuxlnud and prescription medicines only as told by [...] Casseroles. Pizza. Lasagna. Frozen meals. Potato chips. Serbian fries. The items listed above may not [...] provider. Document Revised: 03/07/2022 Document Reviewed: 03/07/2022 [employer] Patient Education 2022 [employer] Follow Up Care 02/01/2023 14:06:36 With:Oren BOB, Elizabeth Brown URKevyn, URO Address: When: Unknown Comments:Sched Lt ESWL/Stent [facility] [employer] 02-14-2023 Evaluation note Encounter Date Diagnosis Assessment Notes Feb, Hiatal hernia (ICD-10 - K44.9) Pt is taking omeprazole. Pt states this medication is working for her. Pt states she still some times gets acid reflux, but overall, she is doing well. Pt RTO in 6 months Feb, Esophageal stricture (ICD-10 - K22.2) [email or web address] Other 05-09-2023 Evaluation note* Encounter Date Diagnosis Assessment Notes Treatment Notes Treatment Clinical Notes November, GERD (gastroesophageal reflux disease) (ICD-10 - K21.9) we will obtain a records release to get records from [facility] It is recommened that patient get EGD and she argees to have this done Patient has family history of esophageal cancer November, Family history of esophageal cancer (ICD-10 - Z80.0) [email or web address] Other Evaluation + Plan note No data available for this section [facility] [employer] evaluation note* Diagnosis Chest pain, unspecified type Dizziness Dizziness and giddiness Abnormal stress ECG Other nonspecific abnormal cardiovascular system function study documented in this encounter [facility] Phone: History general Narrative - Reported* Type Description Date Medical History kidney stones Medical History hypertension Medical History gastritis Medical History Hiatal hernia Surgical History kidney stone Surgical History fx nose Surgical History ablasion Surgical History tubal ligation [email or web address] Other History general Narrative - Reported* Type Description Date Medical History kidney stones Medical History hypertension Medical History gastritis Medical History Hiatal hernia Surgical History kidney stone Surgical History fx nose Surgical History ablasion Surgical History tubal ligation Hospitalization History Heart procedure [email or web address] Other InstructionsNot on filedocumented in this encounter [facility] [facility] No data available for this section [facility] [employer] Reason for Referral Specialty Diagnoses / Procedures Referred By Milton jimenez Referred To Contact Radiology Diagnoses Chest pain, unspecified type Dizziness Abnormal stress ECG R07.9 (ICD-10-CM) - Chest pain, unspecified type Procedures CTA CORON EJECT FRAC WALL MOTION CHG CT ANGIO HRT CORNRY ART/BYPASS GRFTS CONTRST 3D POST [id number] - CHG CT ANGIO HRT CORNRY ART/BYPASS GRFTS CONTRST 3D POST Juvenal Harrell MD [address] [place] [address] Referral ID Status Reason Start Date Expiration Date V isits Requested Visits Authorized [id number] Authorized 06/21/2022 05/07/2023 1 1 Summary Purpose [...] HRT CORNRY ART/BYPASS GRFTS CONTRST 3D POST [id number] - CHG CT ANGIO HRT CORNRY ART/BYPASS GRFTS CONTRST 3D POST Juvenal Harrell MD [address] [place] [address] Referral ID Status Reason Start Date Expiration Date V isits Requested Visits Authorized [id number] Authorized 06/21/2022 05/07/2023 1 1 Reason Comments Med Refill Care Teams (unrecognized sec tion and content) Jewel Bearing Grinder Relationship Specialty Start Date End Date Nadira Martínez APRN - CNP [address] [place] [address] PCP - General Certified Nurse Practitioner 06/17/22 Jewel Bearing Grinder Relationship Specialty Start Date End Date Nadira Martínez APRN-CNP [address] [place], [place] [id number] PCP - General Family Medicine 11/23/20 INFORMATION SOURCE (unrecogn ized section and content) DATE CREATED AUTHOR 06/30/2022 [facility] DATE CREATED AUTHOR AUTHOR'S ORGANIZ ATION 10/06/2022 [facility] DATE CREATED AUTHOR AUTHOR'S ORGANIZ ATION 12/26/2022 [facility] DATE CREATED AUTHOR AUTHOR'S ORGANIZ ATION 01/23/2023 [facility] DATE CREATED AUTHOR AUTHOR'S ORGANIZ ATION 07/08/2023 [facility] FOR RECORDS PERTAINING TO PATIENTS WHO [...] BE BASED ON THE PRIMARY CLINICAL RECORDS. [employer] provides no warranty or guarantee of the accuracy or completeness of information in this document.
--- NOTE | 2023-07-12 23:22 | ED_ITS ---
HPI - Skin/Abscess/Foreign Bdy General Chief complaint: Skin/Abscess/Foreign Body Stated complaint: Rash Time Seen by Provider: 07/12/23 23:07 Source: patient Mode of arrival: walk-in Limitations: no limitations History of Present Illness HPI narrative: 67-year-old female who had a ureteral stent placed earlier today due to a 6 mm kidney stone presents for evaluation of a nonpruritic rash on her left hand. She states that she is on several medications that are not new to her including Bactrim. She does not have any diffuse hives, difficulty breathing or swallowing. She has no nausea or vomiting. She states she noted this area earlier this evening and became very anxious. She has not had a fever or cough. She has no chest pain or shortness of breath. She tolerated the procedure without difficulty. She has petechia on her left hand and scattered on her left forearm and small area of bruising where the blood pressure cuff was placed on her left upper arm Related Data Home Medications Medication Instructions Recorded Confirmed citalopram 20 mg tablet 20 mg PO DAILY 01/18/23 07/06/23 isosorbide mononitrate 30 mg 30 mg PO DAILY 01/18/23 07/06/23 tablet,extended release 24 hr lisinopril 40 mg tablet 40 mg PO DAILY 01/18/23 07/06/23 omeprazole 40 mg capsule,delayed 40 mg PO DAILY 01/18/23 07/06/23 release rosuvastatin 20 mg tablet 20 mg PO DAILY 01/18/23 07/06/23 aspirin 81 mg tablet,delayed 81 mg PO DAILY 02/02/23 07/06/23 release (Adult Low Dose Aspirin) clopidogrel 75 mg tablet 75 mg PO DAILY 02/02/23 07/06/23 Previous Rx's Medication Instructions Recorded oxybutynin chloride 5 mg tablet 5 mg PO BID PRN bladder spasms, 05/24/23 stent pain #60 tabs tamsulosin 0.4 mg capsule 0.4 mg PO QPM Stent pain, stone 05/24/23 passage #30 caps sulfamethoxazole 800 1 tab PO BID Start morning of 07/12/23 mg-trimethoprim 160 mg tablet stent removal next week #2 tabs (Bactrim DS) Allergies Allergy/AdvReac Type Severity Reaction Status Date / Time No Known Drug Allergies Allergy Verified 07/12/23 23:04 Review of Systems ROS Status of ROS 10 or more systems reviewed and unremark able except as noted in history and below [facility] Medical History (Updated 07/12/23 @ 23:22 by Gabbie Arriaza MD) Anemia ?D64.9 - Anemia, unspecified (ICD-10) Migraine ?G43.909 - Migraine, unspecified, not intractable, without status migrainosus (ICD-10) Kidney stones ?N20.0 - Calculus of kidney (ICD-10) Postoperative nausea and vomiting ?R11.2 - Nausea with vomiting, unspecified (ICD-10) ?Z98.890 - Other specified postprocedural states (ICD-10) Anxiety ?F41.9 - Anxiety disorder, unspecified (ICD-10) Acid reflux ?K21.9 - Gastro-esophageal reflux disease without esophagitis (ICD-10) Hyperlipidemia ?E78.5 - Hyperlipidemia, unspecified (ICD-10) Hypertension ?I10 - Essential (primary) hypertension (ICD-10) Coronary artery disease ?I25.10 - Atherosclerotic heart disease of [place] coronary artery without angina pectoris (ICD-10) Hx of renal calculi ?Z87.442 - Personal history of urinary calculi (ICD-10) Surgical History (Updated 07/06/23 @ 13:27 by Maria Elena Arciniega NP) H/O cystoscopy (05/24/23) ?Z98.890 - Other specified postprocedural states (ICD-10) History of ovarian cystectomy ?Z98.890 - Other specified postprocedural states (ICD-10) ?Z87.42 - Personal history of other diseases of the female genital tract (ICD-10) History of endometrial ablation ?Z98.890 - Other specified postprocedural states (ICD-10) History of tubal ligation ?Z98.51 - Tubal ligation status (ICD-10) History of esophagogastroduodenoscopy (EGD) ?Z98.890 - Other specified postprocedural states (ICD-10) History of colonoscopy ?Z98.890 - Other specified postprocedural states (ICD-10) History of cystoscopy ?Z98.890 - Other specified postprocedural states (ICD-10) History of lithotripsy ?Z98.890 - Other specified postprocedural states (ICD-10) Hx of heart artery stent ?Z95.5 - Presence of coronary angioplasty implant and graft (ICD-10) Hx of hysterectomy ?Z90.710 - Acquired absence of both cervix and uterus (ICD-10) Family History (Updated 07/06/23 @ 12:51 by Maria Elena Arciniega NP) Other Family history of breast cancer Family history of hypertension Family history of myocardial infarction Social History (Updated 07/12/23 @ 11:38 by Kerri Francisco) Within the past year, how often did you have a drink containing alcohol: monthly or less Smoking status: Never smoker Non-prescribed substance use: cannabis (any form) Non-prescribed substance use details: LAST WEEK 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 Patient is resting comfortably on cart. Skin: Warm, dry, There are scattered petechiae on the patient's left forearm and left hand, she has several areas of bruising on her left upper arm where the blood pressure cuff had been during her procedure, no additional areas of skin rash, petechiae or purpura Head: Normocephalic, atraumatic Eye: Normal conjunctiva, no drainage, EOMI. PERRL Ears, Nose, Mouth, and Throat: oral mucosa is moist. Cardiovascular: Regular Rate and Rhythm Respiratory: Patient is in no distress, no accessory muscle use, lungs are clear to auscultation, no wheezing, rales or rhonchi Back: non-tender, no CVA tenderness bilaterally to percussion. GI: Normal bowel sounds, no tenderness to palpation, no masses appreciated. No rebound, guarding, or rigidity noted. Musculoskeletal: The patient has no evidence of calf tenderness, no pitting edema, symmetrical pulses noted bilaterally Neurological: A&O x4, normal speech Psychiatric: Cooperative, anxous Constitutional Vital Signs, click to edit/add: Last Vital Signs Temp 97.6 F 07/12/23 23:01 Pulse 100 H 07/12/23 23:01 Resp 16 07/12/23 23:01 BP 177/89 H 07/12/23 23:01 Pulse Ox 95 07/12/23 23:01 O2 Del Method Room Air 07/12/23 23:01 Course Vital Signs Vital signs: Vital Signs Temperature 97.6 F 07/12/23 23:01 Pulse Rate 100 H 07/12/23 23:01 Respiratory Rate 16 07/12/23 23:01 Blood Pressure 177/89 H 07/12/23 23:01 Pulse Oximetry 95 07/12/23 23:01 Oxygen Delivery Method Room Air 07/12/23 23:01 Temperature 97.6 F 07/12/23 23:01 Pulse Rate 100 H 07/12/23 23:01 Respiratory Rate 16 07/12/23 23:01 Blood Pressure 177/89 H 07/12/23 23:01 Pulse Oximetry 95 07/12/23 23:01 Oxygen Delivery Method Room Air 07/12/23 23:01 MDM - Skin/Abscess/Foreign Bdy MDM Narrative Medical decision making narrative: 67-year-old female presents for evaluation of a nonpruritic petechial rash on her left hand and less so on her left forearm with bruising on her left upper arm where she had a blood pressure cuff during a ureteral stent placement earlier today. The patient became very anxious when she saw the rash on her hand. She does not have any additional areas of hives or skin rash. She is on medications that she has been on previously without any difficulty. She does take Plavix but has been off Plavix for her procedure. She was told she can renew her Plavix today. Clinically this is likely related to the blood pressure cuff and not infectious. This was discussed with the patient who felt better after our discussion and is in agreement with the fact that this is likely related to the blood pressure monitoring device during her procedure earlier today. Discharge Plan Discharge Chief Complaint: Skin/Abscess/Foreign Body Clinical Impression: Petechiae Patient Disposition: Home, Self-Care Time of Disposition Decision: 23:21 Condition: Good Prescriptions / Home Meds: No Action clopidogrel 75 mg tablet 75 mg PO DAILY aspirin [Adult Low Dose Aspirin] 81 mg tablet,delayed release (DR/EC) 81 mg PO DAILY tamsulosin 0.4 mg capsule 0.4 mg PO QPM Qty: 30 1RF oxybutynin chloride 5 mg tablet 5 mg PO BID PRN (Reason: bladder spasms, stent pain) Qty: 60 1RF isosorbide mononitrate 30 mg tablet extended release 24 hr 30 mg PO DAILY omeprazole 40 mg capsule,delayed release(DR/EC) 40 mg PO DAILY citalopram 20 mg tablet 20 mg PO DAILY lisinopril 40 mg tablet 40 mg PO DAILY rosuvastatin 20 mg tablet 20 mg PO DAILY sulfamethoxazole-trimethoprim [Bactrim DS] 800-160 mg tablet 1 tab PO BID Qty: 2 0RF Instructions: Ecchymosis (ED) Stand Alone Forms: Portal Instructions Referrals: Physician,Non-Staff, MD [Primary Care Provider] - 1 week Discharge Date/Time: 07/12/23 23:24
== END 2023-07-12 23:24 | disposition home or self-care (01) ==
PROVIDERS: Emergency Provider Emergency Medicine
DX: R23.3 Spontaneous ecchymoses (principal); N20.0 Calculus of kidney; Z98.890 Other specified postprocedural states; F41.9 Anxiety disorder, unspecified; K21.9 Gastro-esophageal reflux disease without esophagitis; E78.5 Hyperlipidemia, unspecified; I10 Essential (primary) hypertension; I25.10 Atherosclerotic heart disease of native coronary artery without angina pectoris; Z87.442 Personal history of urinary calculi; Z98.51 Tubal ligation status; Z95.5 Presence of coronary angioplasty implant and graft; Z90.710 Acquired absence of both cervix and uterus
CPT/HCPCS: 99281

== ENCOUNTER 2023-08-08 14:14 | Outpatient (OUT) | payer MEDICARE, SELFPAY ==
--- NOTE | 2023-08-08 15:23 | CT_ITS ---
The [address] [address] Patient Name: SLY COY MRN: [id number] date: 1955 Sex: F Assigned Patient Location: CT Current Patient Location: [place] Accession/Order Number: [id number] Exam Date: 08/08/2023 15:21 Report Date: 08/08/2023 16:01 At the request of: NADIRA SUBRAMANIAN Procedure: CT lung screening low-dose EXAMINATION: CT lung screening low-dose HISTORY: Cigarette Nicotine Dependence Without Complication COMPARISON: No relevant comparison available. TECHNIQUE: Axial, Coronal, and Sagittal images were created without the administration of IV contrast material. Dose reduction techniques were achieved by using automated exposure control and/or adjustment of mA and/or kV according to patient size and/or use of iterative reconstruction technique. FINDINGS: LUNGS: There are punctate pulmonary nodules the largest groundglass measuring 4 x 3 mm right apex, axial image 25 PLEURA: No mass, effusion, or pneumothorax. VASCULATURE: No abnormality. JHON: No mass or pathologic adenopathy. MEDIASTINUM: No mass or pathologic adenopathy. CARDIAC: No enlargement or pericardial effusion. Mild coronary atherosclerosis CORONARY ARTERIES: AORTA: No aneurysm or dissection. CHEST WALL: No mass or axillary adenopathy BONES: No bone lesion or fracture. LIMITED ABDOMEN: Moderate sized sliding-type hiatal hernia OTHER: Negative. CT/CT lung screening low-dose IMPRESSION: LUNG SCREENING: Lung-RADS Category 2- Benign Appearance or Behavior. Nodules with a very low likelihood of becoming a clinically active cancer due to size or lack of growth. 2. Continue annual screening with LDCT in 12 months. Electronically authenticated by: KARINE CHAMORRO Date: 08/08/2023 16:01
== END 2023-08-08 14:15 | disposition home or self-care (01) ==
LOC: CT 14:15
DX: F17.210 Nicotine dependence, cigarettes, uncomplicated (principal)
CPT/HCPCS: 71271

== ENCOUNTER 2023-08-08 14:19 | Outpatient (OUT) | payer MEDICARE, SELFPAY ==
--- NOTE | 2023-08-08 14:26 | US_ITS ---
[address] [address] Patient Name: SLY COY MRN: [id number] date: 1955 Sex: F Assigned Patient Location: US Current Patient Location: CT Accession/Order Number: [id number] Exam Date: 08/08/2023 14:32 Report Date: 08/08/2023 15:31 At the request of: LIYAH DENNY Procedure: US renal BI EXAMINATION: US renal BI HISTORY: Kidney Stone N20.0 COMPARISON: No relevant comparison available. TECHNIQUE: Ultrasound examination was performed of the bladder. FINDINGS: Right Kidney: Normal in size, contour and echotexture. The cortex measures 1.5 cm. Echogenic foci measuring up to 8 mm, nonobstructing nephrolithiasis. Area of anechoic echogenicity measuring 2.5 cm with internal echoes but no color-flow, a complex cyst is favored Height: 5.5 cm Length: 10.7 cm Width: 4.6 cm Left Kidney: Normal in size, contour and echotexture. The cortex measures 1.1 cm. Echogenic foci measuring up to 8 mm, mild left pelviectasis. No solid cortical mass Height: 4.3 cm Length: 10.1 cm Width: 4.1 cm Urinary bladder measures 7.0 x 6.9 x 5.8 cm. Volume 198.4 mL. Post void volume not obtained US/US renal BI IMPRESSION: Bilateral nonobstructing nephrolithiasis Mild left pelviectasis Electronically authenticated by: KARINE CHAMORRO Date: 08/08/2023 15:31
== END 2023-08-08 14:20 | disposition home or self-care (01) ==
LOC: US 14:20
PROVIDERS: Visit Provider Urology
DX: N20.0 Calculus of kidney (principal); F17.210 Nicotine dependence, cigarettes, uncomplicated
CPT/HCPCS: 71271; 76775

== ENCOUNTER 2023-11-22 12:51 | Emergency (ER) | payer MEDICARE, SELFPAY ==
[2023-11-22] VITALS (13 sets, daily range): BP systolic 148–189; BP diastolic 56–75; PULSE 66–82; TEMP 36.6; O2SAT 97–100; BMI 25.4
--- NOTE | 2023-11-22 13:29 | CT_ITS ---
[address] [address] Patient Name: SLY COY MRN: [id number] date: 1955 Sex: F Assigned Patient Location: ER Current Patient Location: ER Accession/Order Number: [id number] Exam Date: 11/22/2023 14:30 Report Date: 11/22/2023 15:14 At the request of: FINN RIBERA Procedure: CT abdomen pelvis w con EXAMINATION: CT abdomen pelvis w con, 11/22/2023 11:30 AM PDT HISTORY: abd pain COMPARISON: 01/18/2023 TECHNIQUE: CT scan of the abdomen and pelvis was performed with IV contrast. CT dose reduction technique was used, including Automated Exposure Control. FINDINGS: Lung: No significant finding. Liver: No significant finding. Gallbladder: No significant finding. Spleen: No significant finding. Pancreas: No significant finding. Adrenal glands: No significant finding. Kidneys, ureters and bladder: Simple right renal cyst. 7 mm nonobstructive right renal calculus. Punctate nonobstructive left renal calculi. Small simple left-sided renal cyst. Bladder is unremarkable. Mild left hydronephrosis without evidence of obstructing calculus. Bowel: Small moderate-sized hiatal hernia. No evidence of bowel obstruction. Normal appendix. Peritoneum/retroperitoneum: No significant finding. Lymph nodes: No significant finding. Vessels: Moderate scattered atherosclerotic calcification. Body wall: No significant finding. Reproductive: No significant finding. Bones: Bilateral L5 pars defects. Mild L5 anterolisthesis. CT/CT abdomen pelvis w con IMPRESSION: Nonobstructive bilateral renal calculi. Mild left hydronephrosis without obstructing lesion identified. Electronically authenticated by: PATRICE ETAGUE Date: 11/22/2023 15:14
[2023-11-22 13:42] LABS: Basophils Absolute Auto 0.1 10^3/uL (0.0-0.1); Eosinophils Absolute Auto 0.3 10^3/uL (0.0-0.7); Eosinophils Percent Auto 4.3 % (0.9-7.0); Hematocrit 41.3 % (36.0-48.0); Hemoglobin 13.6 g/dL (12.0-16.0); Immature Granulocytes Abs Auto 0.02 10^3/uL (0.00-0.03); Immature Granulocytes Pct Auto 0.3 % (0.0-0.5); Lymphocytes Absolute Auto 2.4 10^3/uL (1.2-3.8); Lymphocytes Percent Auto 38.8 % (20.5-60.0); Mean Corpuscular HGB Conc 32.9 g/dL (29.9-35.2); Mean Platelet Volume 8.9 fL (9.5-13.5); Monocytes Absolute Auto 0.8 10^3/uL (0.3-0.8); Monocytes Percent Auto 13.1 % (1.7-12.0); Neutrophils Absolute Auto 2.6 10^3/uL (1.4-6.5); Neutrophils Percent Auto 42.5 % (43.0-75.0); Platelet Count 251 10^3/uL (150-450); Red Blood Count 4.54 10^6/uL (4.20-5.40); Red Cell Distribution Width 12.6 % (11.0-15.0); White Blood Count 6.1 10^3/uL (4.0-11.0)
[2023-11-22] MEDS: 0.9 % SODIUM CHLORIDE 1,000 ML 999 ML IV (13:43)
[2023-11-22] MEDS: FAMOTIDINE/PF 20 MG/2 ML VIAL IV (13:43)
[2023-11-22] MEDS: ONDANSETRON PF 4 MG/2 ML VIAL IV (13:44)
[2023-11-22 14:12] LABS: Alanine Aminotransferase 17 U/L (14-59); Albumin Level 3.9 g/dL (3.4-5.0); Alkaline Phosphatase 76 U/L (46-116); Anion Gap 15.2; Aspartate Amino Transferase 14 U/L (15-37); BUN Creatinine Ratio 14.9; Bilirubin Total 0.4 mg/dL (0.2-1.0); Calcium 9.2 mg/dL (8.5-10.1); Carbon Dioxide 23.9 mmol/L (21.0-32.0); Chloride 101 mmol/L (98-107); Estimated GFR (African America >60 (>=60); Estimated GFR (Non-African Ame >60 (>=60); Globulin 3.8 g/dL; Glucose 94 mg/dL (74-106); Magnesium 1.7 mg/dL (1.8-2.4); Potassium 4.1 mmol/L (3.5-5.1); Sodium 136 mmol/L (136-145); Total Protein 7.7 g/dL (6.4-8.2)
--- NOTE | 2023-11-22 14:17 | ED_ITS ---
HPI - Abdominal Pain General Chief Complaint: Abdominal Pain Stated Complaint: ABDOMINAL PAIN WITH VOMITING Time Seen by Provider: 11/22/23 13:02 Source: patient Mode of arrival: walk-in Limitations: no limitations History of Present Illness HPI narrative: 68-year-old female presents to the emergency department with complaint of persistent nausea and vomiting over the past 2 weeks. Complains has not been able to keep anything down. Has had intermittent abdominal pain. Has had pain to the periumbilical and left upper quadrant region. States history of hiatal hernia. Onset of symptoms about a month ago. She has been seen by customer accounts advisor at [facility] where she had swallow study done. States she has not been notified of the results. She denies any fever, chills, chest pain, shortness of breath, diarrhea, dysuria, frequency. Quality:?Nausea Severity:?Moderate Timing:?As above, ongoing Context: Normal setting and activity? Modifying factors:?Not relieved despite home Associated symptoms: Since as above Related Data Home Medications ?Medication ?Instructions ?Recorded ?Confirmed citalopram 20 mg tablet 20 mg PO DAILY 01/18/23 07/06/23 isosorbide mononitrate 30 mg 30 mg PO DAILY 01/18/23 07/06/23 tablet,extended release 24 hr lisinopril 40 mg tablet 40 mg PO DAILY 01/18/23 07/06/23 omeprazole 40 mg capsule,delayed 40 mg PO DAILY 01/18/23 07/06/23 release rosuvastatin 20 mg tablet 20 mg PO DAILY 01/18/23 07/06/23 aspirin 81 mg tablet,delayed 81 mg PO DAILY 02/02/23 07/06/23 release (Adult Low Dose Aspirin) clopidogrel 75 mg tablet 75 mg PO DAILY 02/02/23 07/06/23 Previous Rx's ?Medication ?Instructions ?Recorded oxybutynin chloride 5 mg tablet 5 mg PO BID PRN bladder spasms, 05/24/23 stent pain #60 tabs tamsulosin 0.4 mg capsule 0.4 mg PO QPM Stent pain, stone 05/24/23 passage #30 caps sulfamethoxazole 800 1 tab PO BID Start morning of 07/12/23 mg-trimethoprim 160 mg tablet stent removal next week #2 tabs (Bactrim DS) ondansetron 4 mg disintegrating 4 mg PO Q8H PRN nausea and 11/22/23 tablet vomiting #10 tabs Allergies Allergy/AdvReac Type Severity Reaction Status Date / Time No Known Drug Allergies Allergy Verified 07/12/23 23:04 Review of Systems ROS Narrative CONST: Denies any fever, chills HENT: Denies any congestion, sore throat RESP: Denies any cough, shortness of breath CV: Denies any chest pain, peripheral edema GI: +abd pain, nausea, vomiting.? Denies any diarrhea : Denies any flank pain, dysuria MS: Denies any back pain, myalgias SKIN: Denies any color change, rash NEURO: Denies numbness, weakness PSYCHIATRIC: Denies confusion, agitation PFSH [facility] Medical History (Updated 11/22/23 @ 15:33 by GARTH Clark) Anemia ?D64.9 - Anemia, unspecified (ICD-10) Migraine ?G43.909 - Migraine, unspecified, not intractable, without status migrainosus (ICD-10) Kidney stones ?N20.0 - Calculus of kidney (ICD-10) Postoperative nausea and vomiting ?R11.2 - Nausea with vomiting, unspecified (ICD-10) ?Z98.890 - Other specified postprocedural states (ICD-10) Anxiety ?F41.9 - Anxiety disorder, unspecified (ICD-10) Acid reflux ?K21.9 - Gastro-esophageal reflux disease without esophagitis (ICD-10) Hyperlipidemia ?E78.5 - Hyperlipidemia, unspecified (ICD-10) Hypertension ?I10 - Essential (primary) hypertension (ICD-10) Coronary artery disease ?I25.10 - Atherosclerotic heart disease of [place] coronary artery without angina pectoris (ICD-10) Hx of renal calculi ?Z87.442 - Personal history of urinary calculi (ICD-10) Surgical History (Updated 07/06/23 @ 13:27 by Maria Elena Arciniega NP) H/O cystoscopy (05/24/23) ?Z98.890 - Other specified postprocedural states (ICD-10) History of ovarian cystectomy ?Z98.890 - Other specified postprocedural states (ICD-10) ?Z87.42 - Personal history of other diseases of the female genital tract (ICD-10) History of endometrial ablation ?Z98.890 - Other specified postprocedural states (ICD-10) History of tubal ligation ?Z98.51 - Tubal ligation status (ICD-10) History of esophagogastroduodenoscopy (EGD) ?Z98.890 - Other specified postprocedural states (ICD-10) History of colonoscopy ?Z98.890 - Other specified postprocedural states (ICD-10) History of cystoscopy ?Z98.890 - Other specified postprocedural states (ICD-10) History of lithotripsy ?Z98.890 - Other specified postprocedural states (ICD-10) Hx of heart artery stent ?Z95.5 - Presence of coronary angioplasty implant and graft (ICD-10) Hx of hysterectomy ?Z90.710 - Acquired absence of both cervix and uterus (ICD-10) Family History (Updated 07/06/23 @ 12:51 by Maria Elena Arciniega NP) Other Family history of breast cancer Family history of hypertension Family history of myocardial infarction Social History (Updated 07/12/23 @ 11:38 by Kerri Francisco) Within the past year, how often did you have a drink containing alcohol: monthly or less Smoking status: Never smoker Non-prescribed substance use: cannabis (any form) Non-prescribed substance use details: LAST WEEK 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 No diaphoresis.?? HENT: normocephalic, atraumatic, moist mucous membrane, no abnormalities of the nose noted, hearing normal EYES: normal appearing conjunctiva, no apparent discharge bilat NECK: normal appearance CV: normal rate, regular rhythm, no murmur RESP: normal effort, speaking in complete sentences. Lung sounds clear and equal bilat.? No wheezes, rales, rhonchi GI: normal bowel sounds, soft, no distension, nontender : no CVA tenderness MS: no edema, tenderness SKIN: no pallor NEURO: A&Ox 3, no focal findings PSYCH: normal mood, affect Constitutional Vital Signs, click to edit/add: Last Vital Signs Temp 97.8 F 11/22/23 12:57 Pulse 74 11/22/23 15:37 Resp 18 11/22/23 15:37 BP 148/56 H 11/22/23 15:37 Pulse Ox 99 11/22/23 15:37 O2 Del Method Room Air 11/22/23 15:37 Course Reevaluation(s) Reevaluation #1: Patient reports overall improvement of her nausea. She tolerated p.o. challenge. Discussed with patient results, plan, and disposition. She is agreeable with plan. Time: 15:30 Vital Signs Vital signs: Vital Signs Temperature 97.8 F 11/22/23 12:57 Pulse Rate 82 11/22/23 12:57 Respiratory Rate 18 11/22/23 12:57 Blood Pressure 155/75 H 11/22/23 12:57 Pulse Oximetry 100 11/22/23 12:57 Oxygen Delivery Method Room Air 11/22/23 12:57 Temperature 97.8 F 11/22/23 12:57 Pulse Rate 74 11/22/23 15:37 Respiratory Rate 18 11/22/23 15:37 Blood Pressure 148/56 H 11/22/23 15:37 Pulse Oximetry 99 11/22/23 15:37 Oxygen Delivery Method Room Air 11/22/23 15:37 MDM - Abdominal Pain MDM Narrative Medical decision making narrative: This is a pleasant 68-year-old female present to the emergency department with chief complaint of nausea and vomiting. Has also been having some intermittent abdominal pain. Symptoms have been fairly constant over the past couple weeks. Complains of not been able to keep down solids or liquids. States history of hiatal hernia. She also had a recent swallow study performed at [facility], does not know the results. Denies any fever, chills. On arrival, afebrile, vital signs are stable. On exam, nontoxic, well-appearing patient in no distress. Heart regular rate and rhythm. Lung sounds clear and equal bilaterally. Abdomen soft, nontender. No CVA tenderness. Labs reveal no leukocytosis, anemia, thrombocytopenia, electrolyte imbalance, renal impairment. LFTs, lipase, magnesium unremarkable. Urinalysis reveals no evidence of hematuria or infection. EKG reveals no acute or concerning changes. CT abdomen pelvis imaging, per radiologist reveals nonobstructive bilateral renal calculi. Mild left hydronephrosis without obstructing lesion identified. After treatment, patient was symptom-free, tolerated p.o. challenge. Favor nonspecific abdominal pain, nausea and vomiting Diverticulitis, perforation, appendicitis less likely based on imaging Urinary tract infection less likely based on urinalysis Disposition ? The patient was discharged. Plan: Patient will be discharged to home. Condition at time of disposition: stable Prescription for Zofran sent to her pharmacy. She is already on Pepcid and omeprazole Advised to follow up with Gastroenterology Provider. Advised to return for any worsening and/or development of new, concerning signs or symptoms PLEASE NOTE: Portions of the medical record may have been produced using electronic home companion and may contain errors with respect to translation of words which may not have been identified prior to finalization of the chart. Medical Records Attestation: I reviewed the patient's medical records. Lab Data Attestation: I reviewed the patient's lab results. Labs: Lab Results 11/22/23 11/22/23 Range/Units 13:20 14:50 WBC 6.1 (4.0-11.0) 10^3/uL RBC 4.54 (4.20-5.40) 10^6/uL Hgb 13.6 (12.0-16.0) g/dL Hct 41.3 (36.0-48.0) % MCV 91.0 (81.0-99.0) fL MCH 30.0 (26.7-34.0) pg MCHC 32.9 (29.9-35.2) g/dL RDW 12.6 (11.0-15.0) % Plt Count 251 (150-450) 10^3/uL MPV 8.9 L (9.5-13.5) fL Neut % (Auto) 42.5 L (43.0-75.0) % Lymph % (Auto) 38.8 (20.5-60.0) % Mobile % (Auto) 13.1 H (1.7-12.0) % Eos % (Auto) 4.3 (0.9-7.0) % Baso % (Auto) 1.0 (0.2-2.0) % Neut # (Auto) 2.6 (1.4-6.5) 10^3/uL Lymph # (Auto) 2.4 (1.2-3.8) 10^3/uL Mobile # (Auto) 0.8 (0.3-0.8) 10^3/uL Eos # (Auto) 0.3 (0.0-0.7) 10^3/uL Baso # (Auto) 0.1 (0.0-0.1) 10^3/uL Abs Immat Gran (auto) 0.02 (0.00-0.03) 10^3/uL Imm/Tot Granulo (auto) 0.3 (0.0-0.5) % Sodium 136 (136-145) mmol/L Potassium 4.1 (3.5-5.1) mmol/L Chloride 101 (98-107) mmol/L Carbon Dioxide 23.9 (21.0-32.0) mmol/L Anion Gap 15.2 BUN 10.0 (7.0-18.0) mg/dL Creatinine 0.67 (0.55-1.02) mg/dL Est GFR ( Amer) >60 (>=60) Est GFR (Non-Af Amer) >60 (>=60) BUN/Creatinine Ratio 14.9 Glucose 94 (74-106) mg/dL Calcium 9.2 (8.5-10.1) mg/dL Magnesium 1.7 L (1.8-2.4) mg/dL Total Bilirubin 0.4 (0.2-1.0) mg/dL AST 14 L (15-37) U/L ALT 17 (14-59) U/L Alkaline Phosphatase 76 (46-116) U/L Total Protein 7.7 (6.4-8.2) g/dL Albumin 3.9 (3.4-5.0) g/dL Globulin 3.8 g/dL Albumin/Globulin Ratio 1.0 Lipase 37.0 (16.0-77.0) U/L Urine Color Lt. yellow (YELLOW) Urine Clarity Clear (CLEAR) Urine pH 5.5 (5.0-9.0) Ur Specific Benson 1.010 (1.005-1.025) Urine Protein Negative (NEG/TRACE) mg/dL Urine Glucose (UA) Negative (NEGATIVE) mg/dL Urine Ketones Negative (NEGATIVE) mg/dL Urine Occult Blood Moderate A (NEGATIVE) Urine Nitrite Negative (NEGATIVE) Urine Bilirubin Negative (NEGATIVE) Urine Urobilinogen 0.2 (0.2-1.0) EU/dL Ur Leukocyte Esterase Negative (NEGATIVE) Urine RBC 0-2 (0-2) #/HPF Urine WBC None seen (NONE SEEN) #/HPF Ur Squamous Epith Cells Rare (NONE/RARE) #/LPF Urine Crystals None seen (None Seen) #/HPF Urine Bacteria None seen (NONE SEEN) #/HPF Urine Casts None seen (NONE SEEN) #/LPF Urine Mucus None seen (NONE SEEN) Imaging Data CT scan - abdomen: Radiologist's impression: ITS Impressions Abdomen/Pelvis CT 11/22/23 13:29 IMPRESSION: Nonobstructive bilateral renal calculi. Mild left hydronephrosis without obstructing lesion identified. Electronically authenticated by: PATRICE TEAGUE Date: 11/22/2023 15:14 ECG Data Attestation: I personally reviewed and interpreted this ECG as follows: (EKG performed at 1310 hrs. reveals sinus rhythm at 67 bpm, no ischemia or ectopy noted. Normal QTc. No other acute changes were noted) Discharge Plan Discharge Stand Alone Forms: Portal Instructions Chief Complaint: Abdominal Pain Clinical Impression: Nonspecific abdominal pain Nausea & vomiting Qualifiers: Vomiting type: unspecified Qualified Code(s): R11.2 - Nausea with vomiting, unspecified Patient Disposition: Home, Self-Care Time of Disposition Decision: 15:33 Condition: Good Mode of Transportation: Private Vehicle Prescriptions / Home Meds: New ondansetron 4 mg tablet,disintegrating 4 mg PO Q8H PRN (Reason: nausea and vomiting) Qty: 10 0RF No Action clopidogrel 75 mg tablet 75 mg PO DAILY aspirin [Adult Low Dose Aspirin] 81 mg tablet,delayed release (DR/EC) 81 mg PO DAILY tamsulosin 0.4 mg capsule 0.4 mg PO QPM Qty: 30 1RF oxybutynin chloride 5 mg tablet 5 mg PO BID PRN (Reason: bladder spasms, stent pain) Qty: 60 1RF isosorbide mononitrate 30 mg tablet extended release 24 hr 30 mg PO DAILY omeprazole 40 mg capsule,delayed release(DR/EC) 40 mg PO DAILY citalopram 20 mg tablet 20 mg PO DAILY lisinopril 40 mg tablet 40 mg PO DAILY rosuvastatin 20 mg tablet 20 mg PO DAILY sulfamethoxazole-trimethoprim [Bactrim DS] 800-160 mg tablet 1 tab PO BID Qty: 2 0RF Print Language: Kyrgyz Instructions: Acute Abdominal Pain (ED) Referrals: HUGO HOLBROOK [Physician] - As soon as possible Discharge Date/Time: 11/22/23 15:39
[2023-11-22 15:05] LABS: Bilirubin Urine NEGATIVE (NEGATIVE); Blood Urine MODERATE (NEGATIVE); Clarity Urine CLEAR (CLEAR); Color Urine LT. YELLOW (YELLOW); Glucose Urine UA NEGATIVE (NEGATIVE); Ketones Urine NEGATIVE (NEGATIVE); Leukocyte Esterase Urine NEGATIVE (NEGATIVE); Nitrite Urine NEGATIVE (NEGATIVE); Protein Urine NEGATIVE (NEG/TRACE); Urobilinogen Urine 0.2 EU/dL (0.2-1.0); pH Urine 5.5 (5.0-9.0)
[2023-11-22 15:21] LABS: Bacteria Urine NONE SEEN #/HPF (NONE SEEN); Cast Seen? NONE SEEN #/LPF (NONE SEEN); Crystals Seen? None Seen #/HPF (None Seen); Mucus Urine NONE SEEN (NONE SEEN); RBC Urine 0-2 #/HPF (0-2); Squamous Epithelial Cell Urine RARE #/LPF (NONE/RARE); WBC Urine NONE SEEN #/HPF (NONE SEEN)
--- NOTE | 2023-11-22 15:48 | ECG_ITS ---
The [facility] Test Date: 2023-11-22 Pat Name: SLY COY Department: Room: - Gender: Female Staff Consultant: : 1955 Requested By: [id number] Order Number: [id number] Reading MD: AARON SINGLETON Measurements Intervals [place] Rate: 67 P: 67 [place]: 136 QRS: 73 QRSD: 74 T: 67 QT: 380 QTc: 396 Interpretive Statements 1100 Sinus rhythm 9110 normal ECG Compared to ECG 05/17/2023 15:26:57 No significant changes Electronically Signed On 11-22-2023 22:54:47 EDT by AARON SINGLETON
== END 2023-11-22 15:39 | disposition home or self-care (01) ==
PROVIDERS: Physician Assistant; Emergency Provider Emergency Medicine
DX: R11.2 Nausea with vomiting, unspecified (principal); R10.9 Unspecified abdominal pain; F41.9 Anxiety disorder, unspecified; K21.9 Gastro-esophageal reflux disease without esophagitis; E78.5 Hyperlipidemia, unspecified; I10 Essential (primary) hypertension; I25.10 Atherosclerotic heart disease of native coronary artery without angina pectoris; F12.90 Cannabis use, unspecified, uncomplicated; Z98.890 Other specified postprocedural states; Z95.5 Presence of coronary angioplasty implant and graft; Z90.710 Acquired absence of both cervix and uterus; Z79.899 Other long term (current) drug therapy; Z79.82 Long term (current) use of aspirin; Z87.442 Personal history of urinary calculi
CPT/HCPCS: 36415; 74177; 80053; 81001; 83690; 83735; 85025; 93005; 96361; 96374; 96375; 99285; Q9967

== ENCOUNTER 2024-02-24 09:43 | Outpatient (OUT) | payer MEDICARE, SELFPAY ==
--- OUTSIDE RECORDS SUMMARY | 2024-02-24 09:46 | XMS_ITS | CCD ---
Author Organization [facility] Care Team Providers Care Deicer Repairer Pneumatic Name Role Phone Nadira Modi APRN, CNP Primary Care Provider JUVENAL HARRELL Referring Unavailable ANGLIM, NADIRA Primary Care Unavailable [facility] Care Unava ilable GABRIELLA GRANTYL Consulting Unavailable JUANITA MIKHAIL Admitting Unavailable GABRIELLA GRANTYL Attending Unavailable ANGLIM, NADIRA Admitting Unavailable ANGNADIRA URRUTIA Attending Unavailable [facility] Care Unava ilable TANYA, NADIRA Consulting Unavailable Himanshu Borjas Unavailable JAYA SIMON Admitting Unavailable JAYA SIMON Attending Unavailable JAYA SIMON Referring Unavailable ANGLIM, NADIRA Primary Care Unavailable TANYA, NADIRA Primary Care Physician Nadira Perdue Primary Care Provider Fernando Castellon Admitting Unavailable Fernando Castellon Attending Unavailable Anglim, Nadira Primary Care Unavailable Himanshu Borjas Admitting Unavailable Himanshu Borjas Attending Unavailable Tanya, Nadira Primary Care Unavailable RISA Martínez Primary Care Provider [phone] RISA Borjas Attending Provider JENIFFER MARTÍNEZA A Referring Unavailable ANGLIM, NADIRA A Primary Care Unavailable [place] Toney Attending Unavailable Elizabeth Lott Attending Unavailable Elizabeth Lott Attending Unavailable Elizabeth Lott Attending Unavailable ANGGHADA, NADIRA Referring Unavailable Elizabeth Lott Attending Unavailable Elizabeth Lott Admitting Unavailable Elizabeth Lott Referring Unavailable Elizabeth Lott Attending Unavailable Allergies Allergy Classification Reported Allergen(s) Allergy Type Date of Onset Reaction(s) Facility (1 source) No Known Medication Allergies; Translations: [No Known Medication Allergies] Propensity to adverse reactions (disorder) [facility] Repository Medications Current Medications Medication Drug Class(es) Dates Sig (Normalized) Sig (Original) ALPRAZolam (4 sources) Benzodiazepine Start: 05-10-2023 alprazolam Oral, Refills(s) 0 Start Date: 05/10/23 Status: Ordered aspirin 81 mg oral capsule (5 sources) Platelet Aggregation Inhibitor, Nonsteroidal Anti-inflammatory Drug [...] 01/23/2023 Active citalopram 20 mg oral tablet (11 sources) Serotonin Reuptake Inhibitor Start: 12-20-2022 take 1 mg by mouth once daily citalopram 20 mg Tab mg tab(s), Oral, Daily, Refills(s) 0 Start Date: 05/10/23 Status: Ordered clopidogrel 75 mg oral tablet (10 sources) P2Y12 Platelet Inhibitor Start: 01-23-2023 take 1 mg by mouth once daily Plavix 75 mg Tab mg tab(s), Oral, Daily, Refills(s) 0 Start Date: 05/10/23 Status: Ordered Plavix Active estradiol 0.1 mg/ml vaginal cream (4 sources) Estrogen Start: 05-10-2023 Estrace 0.1 mg /g Cream See Instructions, 42.5 gm, Refill(s) 3, apply pea size amount to urethra/inner vagina 3x/week x 1 month, then 2x/week for maintainence, [facility], 152.4, cm, 05/10/23 9:55:00 EDT, Height/Length Dosing, 57.6, kg, 05/10/23 9:55:00 EDT, Weight Dosing Start Date: 05/10/23 Status: Ordered famotidine 40 mg oral tablet (6 sources) Histamine-2 Receptor Antagonist Start: 01-02-2024 take 40 mg by mouth twice daily Famotidine Active 40 MG PO Twice daily 60 January 02, 2024 12:00am Start: 10-26-2023 End: 01-02-2024 take 40 mg by mouth once daily at bedtime Famotidine Discontinued 40 MG PO Daily at bedtime October 26, 2023 12:00am January 02, 2024 2:12pm 24 hr isosorbide mononitrate 30 mg extended [...] 07/06/2023 Discontinued lisinopril 40 mg oral tablet (11 sources) Angiotensin Converting Enzyme Inhibitor Start: 05-10-2023 take 1 mg by mouth once daily lisinopril 40 mg Tab mg tab(s), Oral, Daily, Refills(s) 0 Start Date: 05/10/23 Status: Ordered Start: 12-20-2022 take 20 mg by mouth once daily Lisinopril Active 20 MG PO Daily December 20, 2022 12:00am 24 hr metoprolol succinate 25 mg extended release oral tablet (1 source) beta-Adrenergic Shoaib Start: 02-10-2023 take 1 tablet by mouth once daily metoprolol succinate XL (TOPROL XL) 25 mg 24 hr tablet Indications: 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 90 tablet 3 02/10/2023 Active omeprazole 40 mg delayed release oral capsule (13 sources) Proton Pump Inhibitor Start: 01-02-2024 take 40 mg by mouth twice daily Omeprazole Active 40 MG PO Twice daily 60 30 January 02, 2024 2:11pm Start: 12-20-2022 End: 12-20-2022 take 20 mg by mouth once daily Omeprazole Discontinued 20 MG PO Daily December 20, 2022 12:00am December 20, 2022 1:54pm Start: 12-20-2022 End: 01-02-2024 take 40 mg by mouth once daily Omeprazole Discontinued 40 MG PO Daily December 20, 2022 12:00am January 02, 2024 2:15pm take 1 capsule by mo ut twice daily Omeprazole 20 MG 1 capsule [...] Active rosuvastatin calcium 20 mg oral tablet (11 sources) HMG-CoA Reductase Inhibitor Start: 10-26-2023 Rosuvastatin Active MG PO October 26, 2023 12:00am FreeTextSig: Oral; Note: Source Status: Taking; Qty: 90 Tablet; Provider: Suad Downs ( ) Start: 02-10-2023 take 1 mg by mouth [...] Active Problems Problem Classification Problem Date Documented Date Episodic/Chronic Abdominal hernia (12 sources) Diaphragmatic hernia without obstruction or gangrene; Translations: [Hiatal hernia] Onset: 11-14-2023 Episodic Abdominal pain (4 sources) Abdominal pain; Translations: [Unspecified abdominal pain] 01-02-2024 Episodic Calculus of urinary tract (13 sources) Personal history of urinary calculi; Translations: [History of calculus of kidney] Onset: 07-29-2016 Episodic Coronary atherosclerosis and other heart disease (5 sources) Coronary arteriosclerosis; Translations: [Atherosclerotic heart disease of inaja coronary artery with other forms of angina pectoris] Onset: 02-10-2023 05-10-2023 Chronic Disorders of lipid metabolism (6 sources) Pure hypercholesterolemia, unspecified; Translations: [Hyperlipidemia, unspecified] Onset: 12-02-2021 05-10-2023 Chronic E Codes: Cut/pierceb (1 source) Contact with knife, initial encounter; Translations: [CONTACT WITH KNIFE INITIAL ENC] Onset: 10-04-2022 Episodic Esophageal disorders (16 sources) Gastroesophageal reflux disease; Translations: [Gastro-esophageal reflux disease without esophagitis] Onset: 11-14-2023 Chronic Essential hypertension (9 sources) Essential (primary) hypertension; Translations: [Hypertensive disorder] Onset: 11-27-2021 Chronic Genitourinary symptoms and ill-defined conditions (1 source) Procedure carried out on subject; Translations: [Encounter for fitting and adjustment of urinary device] Onset: 07-24-2023 Chronic Genitourinary symptoms and ill-defined conditions (6 sources) Unspecified symptoms and signs involving the genitourinary system; Translations: [Urinary symptoms ] Onset: 07-29-2016 Episodic Hypertension with complications and secondary hypertension (1 source) Hypertensive heart disease; Translations: [Hypertensive heart disease without heart failure] Onset: 02-10-2023 02-10-2023 Chronic Immunizations and screening for infectious disease (1 source) Encounter for immunization; Translations: [ENCOUNTER FOR IMMUNIZATION] Onset: 10-04-2022 Episodic Menopausal disorders (5 sources) Atrophic vaginitis; Translations: [Postmenopausal atrophic vaginitis] Onset: 05-10-2023 Chronic Mood disorders (1 source) Mood disorders; Translations: [DEPRESSION UNSPECIFIED] Onset: 10-04-2022 Nausea and vomiting (4 sources) Nausea; Translations: [Nausea] 01-02-2024 Episodic Open wounds of extremities (4 sources) Laceration without foreign body of right index finger without damage to nail, initial encounter; Translations: [LAC W/O FB RT IF W/O DMG NAIL INIT] Onset: 09-30-2022 Episodic Other aftercare (1 source) Other group home (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 therapy; Translations: [OTH SAMPLER PICKUP CURRENT DRUG THERAPY] Onset: 10-04-2022 Episodic Other lower respiratory disease (4 sources) Cough; Translations: [Cough] 10-26-2023 Episodic Other nutritional; endocrine; and metabolic disorders (1 source) Disorder of mineral metabolism; 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, unspecified] Onset: 07-29-2016 09-26-2022 Chronic Other screening for suspected conditions (not mental disorders or infectious disease) (3 sources) Echocardiogram abnormal; Translations: [Abnormal result of other cardiovascular function study] Onset: 06-21-2022 Episodic Prolapse of female genital organs (5 sources) Cystocele; Translations: [Cystocele, unspecified] Onset: 05-10-2023 Chronic Residual codes; unclassified (1 source) Family history of malignant neoplasm of digestive organs Episodic Residual codes; unclassified (4 sources) History of cardiac catheterization; Translations: [Other specified postprocedural states] 10-26-2023 Episodic Residual codes; unclassified (4 sources) Past history of procedure; Translations: [Other specified postprocedural states] 10-26-2023 Episodic Substance-related disorders (1 source) Nicotine dependence, cigarettes, uncomplicated; Translations: [NICOTINE DEPEND CIGARETTES UNCOMP] Onset: 10-04-2022 Chronic Unclassified (2 sources) cath procedure; Translations: [cath procedure] Onset: 01-23-2023 Unclassified (1 source) Cough, unspecified; Translations: [Cough, unspecified] Onset: 11-14-2023 Urinary tract infections (4 sources) Urinary tract infectious disease 05-10-2023 Episodic Past or Other Problems Problem Classification Problem Date Documented Da te Episodic/Chronic Conditions associated with dizziness or vertigo (3 sources) Dizziness; Translations: [Dizziness and giddiness] Onset: 05-06-2022 Episodic Coronary atherosclerosis and other heart disease (1 source) Presence of coronary angioplasty implant and graft; Translations: [Percutaneous transluminal coronary angioplasty status] Onset: 02-10-2023 02-10-2023 Episodic Nonspecific chest pain (3 sources) Chest pain; Translations: [Chest pain, unspecified] Onset: 05-06-2022 Episodic Other diseases of kidney and ureters (1 source) Cyst of kidney; Translations: [Cyst of kidney, acquired] Onset: 07-29-2016 02-14-2022 Episodic Other gastrointestinal disorders (1 source) Dysphagia, unspecified; Translations: [Dysphagia, unspecified] Onset: 12-20-2022 Episodic Results Test Name Value Interpretation Reference Range Facility Creatinine [Mass/volume] in Serum or PlasmaOrdered By: Himanshu Borjas on 01-16-2024 Creatinine [Mass/Vol] 0.84 mg/dL 0.60-1.20 [facility] No Panel InformationOrdered By: Himanshu Borjas on 01-16-2024 Estimated GFR (CKD-EPI) > 60.0 mL/Min [facility] Creatinine Clearance (Chem N/A [facility] Urea nitrogen [Mass/volume] in Serum or PlasmaOrdered By: Himanshu Borjas on 01-16-2024 Urea nitrogen [Mass/Vol] 15 mg/dL 01-31 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 Computer aided detection was utilized. FINDINGS: There are scattered areas of fibroglandular density. There are no suspicious masses, calcifications, or areas of architectural distortion. IMPRESSION: No mammographic evidence of malignancy. BI-RADS: BI-RADS 1 - Negative Recommendation: Routine screening mammogram in 1 year. Finalized by Antionette Daley MD on 12/11/2023 1:24 PM 1 b MAMM 1 YR Normal [facility] FL esophaguson 11-14-[address] [place] [place] [address] Fluoroscopy Report Signed Patient: Bella Coy MR#: [id number] : 1955 Acct:[id number] Age/Sex: 68 / F ADM Date: 11/14/23 Loc: XD Room: Type: [facility] Attending Dr: Himanshu Borjas APRN Copies to: Himanshu Borjas APRN Ordering Provider: Himanshu Borjas APRN Date of Service: 11/14/23 FL/FL esophagus: R05.9 - [place] esophagus 11/14/2023 8:41 AM SIGNS AND SYMPTOMS: Cough, dry mouth, dysphagia with reflux. History of EGD with esophageal stricture, hiatal hernia, and esophageal dilatation PROTOCOL: Fluoroscopic images of the esophagus were obtained after oral gas present administration and during administration of barium based oral contrast COMPARISON: None FINDINGS: There is satisfactory transit of oral contrast through the proximal and middle thirds of the esophagus. There are tertiary contractions with stasis in the lower third esophagus consistent with esophageal dysmotility. There is a sliding-type hiatal hernia. There is no mucosal thickening, ulceration, mass effect, or stricture. Contrast passes readily through the gastroesophageal junction without evidence of significant stenosis. A small amount of gastroesophageal reflux is demonstrated at the end of the exam. Cumulative Air Kerma in mGy: 43.1 mGy FL/FL esophagus IMPRESSION: There is a sliding-type hiatal hernia with a small amount of gastroesophageal reflux demonstrated. No evidence of mass, stricture, or ulceration. No mucosal thickening. Esophageal dysmotility is noted with stasis of contrast in the lower third of the esophagus. Impression dictated by: Arnoldo Souza M.D.11/14/2023 2:00 PM Dictation Location: [place] [address] Transcribed By: [facility] 11/14/23 1400 Dictated By: Arnoldo Souza II, MD 11/14/23 1358 Signed By: 11/14/23 1400 Normal [facility] RAD - Ultrasound Reporton RAD - Ultrasound Report [id number] #1.00TIFF Normal [facility] Progress Note-Physicianon Operative Report Patient: BELLA COY Age: 67 years Sex: Female : 1955 Associated Diagnoses: None Author: Elizabeth Lott MD Procedure Operative Information Details: Date/ Time: 07/24/2023 09:57:00. Pre-Op Dx: Encounter for removal of ureteral stent ([id number] Z46.6, Discharge, Medical), Kidney stones (IJW65-IP N20.0, Discharge, Medical), Foreign Body in Bladder - T19.1XXA. Post-Op Dx: Same. Anesthesia Type: Local. Procedure: Local Cystoscopy with Stent Removal. Complications: None. Risks/Benefits/Infor med Consent: Surgical risks, benefits, details of the procedure have been explained to the patient, Full informed consent has been obtained. Intraoperative Information Prepped: The patient was placed in supine position, The patient was prepped with the Betadine solution. Anesthesia: 2% Xylocaine Jelly per urethra. Procedure: Cystoscopy and Left Stent Removal, The flexible Cystoscope was passed in retrograde fashion into the bladder without difficulty, The bladder was viewed in entirety and found to be without tumors or stones, Mild inflammation was seen surrounding the orifice with the stent seen protruding from it, The stent was then grasped and removed in its entirety. Specimens Removed: None. Devices Implanted: None. Postoperative Information Discharge: The patient tolerated the procedure well and was subsequently discharged home, - Obtain renal ultrasound in 6 weeks at [facility] to ensure no silent obstruction develops. - If no hydronephrosis, will continue surveillance of known right kidney stone with renal ultrasound and KUB in 6 months. Discussed calcium oxalate monohydrate 90%, 10% dihydrate. 1 stone was more resistant to ESWL due to being behind narrow infundibulum, which also causes stones. Dietary modifications discussed including increase fluid intake and lemon. Patient declines metabolic workup at this time. Will continue with dietary modifications. Op Note Normal [facility] Comment on above: Result Comment: Elec tronically Signed By: Oren BOB, Elizabeth Brown\.br\Date and Time Signed: 07/29/23 15:57 EST Consent for Procedure/Surger yon 07-24-2023 Consent for Procedure/Surgery [id number] 1#1.00TIFF Normal [facility] Consent for Treatmenton 07-10 Consent for Treatment [id number] #1.00TIFF Normal [facility] Inpatient Patient Summaryon 07-24-2023 Inpatient Patient Summary [place] [id number] Clinical Summary Person Information Name: BELLA COY Age: 67 Years : 1955 Sex: Female PCP: NADIRA MARTÍNEZ CNP Marital Status: Race: White Ethnicity: Non- or Language: Hebrew Visit Id: Visit Reason: KIDNEY STONE Speciality: Acuity: Enc Type: Outpatient Med Service: Surgery Arrival: 07/24/2023 08:39:36 Discharge: Dispo Type: Address: [address] [id number] Provider Notes: Diagnosis: Encounter for removal of ureteral stent; Kidney stones Problems Active Vaginal atrophy Female bladder prolapse UTI symptoms Hypertension Hyperlipidemia CAD (coronary artery disease) UTI (urinary tract infection) Personal history of kidney stones Kidney stones Smoking Status: Functional Status: Sensory Deficits: History of Falls: Mobility Assistance Prior to Admission: ADLs: Current Level of Assistance for Self-Care/Mobility: Cognitive Status: Allergies No Known Medication Allergies Laboratory or Other Results This Visit (last charted value for your 07/24/2023 visit) No Laboratory or Other Results This Visit Measurements: Height: Weight: Blood Pressure: Not Valued / Not Valued BMI: Procedures No Procedures Documented Immunizations No Immunizations Documented This Visit Final Med List: alprazolam By Mouth. aspirin (aspirin 81 mg oral capsule) By Mouth every 24 hours. citalopram (citalopram 20 mg Tab) By Mouth every day. clopidogrel (Plavix 75 mg Tab) By Mouth every day. estradiol topical (Estrace 0.1 mg/g Cream) apply pea size amount to urethra/inner vagina 3x/week x 1 month, then 2x/week for maintainence. Refills: 3. lisinopril (lisinopril 40 mg Tab) By Mouth every day. rosuvastatin (rosuvastatin 20 mg Tab) By Mouth every day. Care Team Members: Attending Physician: Elizabeth Lott MD Consulting Physician: Referring Physician: Elizabeth Lott MD Follow up: With: Address: When: Elizabethmaxi Lott [address] [place] [phone] Business (1) [address], [address], [facility] [address] [place] [phone] Business (1) Comments: Obtain renal US in 6 weeks at [facility]. Office to call with results. If no hydronephrosis, office will call to schedule follow up in 6 months with KUB and renal US Patient Education Information: EU - Cystoscopy with Stent Removal Discharge Instructions (CUSTOM); Dietary Guidelines to Help Prevent Kidney Stones Normal [facility] IntraOperative Documentson 0 07-24-2023 IntraOperative Documents [id number] 8#1.00TIFF Normal [facility] Main OR Intraoperative Recor don 07-24-2023 Main OR Intraoperative Record IntraOp Document Type FTURO Summary Primary Physician: Elizabeth Lott MD Finalized Date/Time: 07/24/23 09:56:31 Pt. Name: BELLA COY/Sex: 1955 Female Med Rec #: [id number] Physician: Elizabeth Lott MD Financial #: [id number] Pt. Type: O Room/Bed: / Admit/Disch: 07/24/23 08:39:36 - Institution: Case Times FTURO Entry 1 Patient Times In Room 07/24/23 09:33:00 Out Room 07/24/23 09:57:00 Procedure Times Start 07/24/23 09:51:00 Stop 07/24/23 09:52:00 Anesthesia Times Last Modified By: Timmy ALMONTE, Liza Gibbs 07/24/23 09:53:29 Case Attendance FTURO Entry 1 Entry 2 Entry 3 Case Attendee Oren BOB, Elizabeth Warner RN, Nadira Mckeon Role Performed Surgeon - Primary Station Cleaning Porter - Primary Scrub - Primary Time In 07/24/23 09:33:00 07/24/23 09:33:00 07/24/23 09:33:00 Time Out 07/24/23 09:57:00 07/24/23 09:57:00 07/24/23 09:57:00 Procedure CYSTOSCOPY LOCAL WITH CYSTOSCOPY LOCAL WITH CYSTOSCOPY LOCAL WITH STENT REMOVAL(Left) STENT REMOVAL(Left) STENT REMOVAL(Left) Comments Last Modified By: Timmy ALMONTE, Liza Warner RN, Liza Wanrer RN, Liza Gibbs 07/24/23 Aaliyah Gibbs 07/24/23 Aaliyah Gibbs 07/24/23 09:53:30 09:53:30 09:53:30 Surgical Procedures FTURO Entry 1 Procedure Description Procedure CYSTOSCOPY LOCAL WITH Modifiers Left STENT REMOVAL Surgeon Description CYSTOSCOPY LEFT STENT REMOVAL Primary Procedure Yes Primary Surgeon Elizabeth Lott MD Start 07/24/23 09:51:00 Stop 07/24/23 09:52:00 Anesthesia Type Local Surgical Service Urology Wound Class 2 - Clean-Contaminated Last Modified By: Liza Warner RN 07/24/23 09:53:09 General Case Data FTURO Pre-Care Text: Classifies surgical wound, implements aseptic technique, initiates traffic control Entry 1 Case Information OR URO 1 FT Case Level None Wound Class 2 - Clean-Contaminated Specialty Urology Preop Diagnosis KIDNEY STONE Postop Same As Preop Yes Postop Diagnosis KIDNEY STONE Outcomes Met? Yes Last Modified By: Liza Warner RN 07/24/23 09:52:14 Post-Care Text: The patient is free from signs and symptoms of infection EU IntraOp - FTURO Pre-Care Text: Implements protective measures prior to operative or invasive procedure, confirms identity before the operative or invasive procedure, verifies operative procedure, surgical site, and laterality Entry 1 EU Perioperative Protocols Procedure(s) CYSTOSCOPY LOCAL WITH Patient Identity Birthday, ID Band STENT REMOVAL(Left) Verified (select at Check, Patient least 2): Participation Consents / H and P HandP, Surgery/Procedure Operative Site N/A Verified Consent Marking Verified Surgical Site Yes Laterality Verified Yes Verified Procedure Verified Yes Correct Patient Yes Position Verified Availability Equipment, Medication Time Out Elizabeth Lott MD, Verified (If Participants Lzia Warner RN Applicable) Darren Scanlon Laura C Time Out Complete 07/24/23 09:50:00 Allergies Reviewed? Yes Allergies Reviewed Self/Patient With Body Position Frog Legged Prep Area PERINEAL AREA Prep Agents Betadine Solution Skin. Condition Unable to Visualize Description CLOTHED Additional None Specimens Collected Vitals - EU Blood Pressure 130/78 Pulse 68 bpm Respirations 14 br/min SPO2 97 % IandO - EU Outcomes Met? Yes Last Modified By: Liza Warner RN 07/24/23 09:52:36 Post-Care Text: The patient is free from signs and symptoms of injury caused by extraneous objects Implant Log FTURO Pre-Care Text: Records devices implanted during the operative or invasive procedure Entry 1 Implant/Explant Explant Implant Identification Description PREVIOUSLY IMPLANTED LEFT STENT Usage Data Outcomes Met? Yes Last Modified By: Liza Warner RN 07/24/23 09:52:53 Post-Care Text: The patient is free from signs and symptoms of injury caused by extraneous objects Sign Out FTURO Entry 1 Before Patient Leaves OR Nurse verbally Yes Nurse verbally Yes confirms with the confirms with the team the name of team that the procedure(s) instrument, sponge, recorded and needle counts are correct (or N/A) Nurse verbally n/a Nurse verbally Yes confirms with the confirms with the team how the team whether there specimen is labeled are any equipment (including patient problems to be name), if applicable addressed Sign Out Complete 07/24/23 09:53:00 Last Modified By: Liza Warner RN 07/24/23 09:53:11 Case Comments Finalized By: Liza Warner RN Document Signatures Signed By: Liza Warner RN 07/24/23 09:56 Normal [facility] Main OR Preoperative Recordo n 07-24-2023 Main OR Preoperative Record Holding Area Document Type FTURO Summary Primary Physician: Elizabeth Lott MD Finalized Date/Time: 07/24/23 08:57:43 Pt. Name: BELLA COY Kevyn CoatesB./Sex: 1955 Female Med Rec #: [id number] Physician: Elizabeth Lott MD Financial #: [id number] Pt. Type: O Room/Bed: / Admit/Disch: 07/24/23 08:39:36 - Institution: Case Times Holding FTURO Pre-Care Text: Verifies consent for planned procedure, identifies individual values and wishes concerning care, includes family members in perioperative teaching Secures patient's records' belongings, and valuables, maintains patient's dignity and privacy, and maintains patient confidentiality Entry 1 In Holding 07/24/23 08:53:00 Outcomes Met? Yes Last Modified By: Karis ALMONTE, Annie RAHMAN 07/24/23 08:53:31 Post-Care Text: The patient participates in decisions affecting his or her perioperative plan of care The patient's right to privacy is maintained Surgery Checklist FTURO Entry 1 Patient Birthday, ID Band Procedure History and Physical, Identification: Check, Patient Verification: Surgical Consent, With Participation Patient NPO after Midnight: n/a Personal Items clothes Comment: Complaints of Pain: No Skin Integrity Unable to Visualize Vitals - EU Blood Pressure 130/78 Pulse 68 bpm Respirations 14 br/min SPO2 97 % Additional None RN Reviewed Yes Specimens Collected Last Modified By: JOSIAH Dyson RN, Ruthann 07/24/23 08:55:37 Finalized By: JOSIAH Dyson RN, Ruthann Document Signatures Signed By: JOSIAH Dyson RN, Ruthann 07/24/23 08:55 JOSIAH Dyson RN, Ruthann 07/24/23 08:57 Normal [facility] Outpatient Surgery Discharge Instructionon 07-24-2023 Outpatient Surgery Discharge Instruction [address] [address] Patient Discharge Instructions PERSON INFORMATION Name: BELLA COY Date of : 1955 Current Date: 07/24/2023 09:56:37 PHYSICIANS Admitting Physician: Elizabeth Lott MD Comment: Discharge Diagnosis: Encounter for removal of ureteral stent; Kidney stones BELLA COY has been given the following list of follow-up instructions, prescriptions, and patient education materials: IF UNABLE TO CONTACT YOUR PHYSICIAN AND YOU FEEL IT IS AN EMERGENCY, GO TO THE NEAREST EMERGENCY ROOM OR CALL 911 Follow up: With: Address: When: Elizabeth Lott [address] [place] [address] [phone] Business (1) [address] [facility], [address] [address] [phone] Business (1) Comments: Obtain renal US in 6 weeks at [facility]. Office to call with results. If no hydronephrosis, office will call to schedule follow up in 6 months with KUB and renal US Comment: PATIENT EDUCATION INFORMATION Instructions: Cystoscopy with Stent Removal ? Voiding after the procedure: there may be some pain, burning, urgency, frequency and blood tinged urine following the procedure. These symptoms usually resolve within 2-5 days. Drink the amount of fluid it takes to keep the urine pink to yellow or clear in color. Drinking enough water and fluids will help to ease any discomfort after your procedure. ? If you are having problems that seem out of the ordinary, please call. ? If unable to contact your physician and you feel it is an emergency, go to the nearest emergency room or call 911 ? Diet ? you may resume your normal diet. ? Activity ? you may resume your normal activities ? Call if you have a fever over 100 degrees. Dietary Guidelines to Help Prevent Kidney Stones Kidney stones are deposits of minerals and salts that form inside your kidneys. Your risk of developing kidney stones may be greater depending on your diet, your lifestyle, the medicines you take, and whether you have certain medical conditions. Most people can lower their risks of developing kidney stones by following these dietary guidelines. Your dietitian may give you more specific [...] table and allow each person to add their own salt to taste. ? Use vegetable [...] or seafood. ? When you prepare animal proteins, cut pieces into small portion sizes. For [...] ? Have two kinds of vegetables at (more content not included)... Normal [facility] Progress Note-Physicianon Progress Note-Physician Patient: BELLA COY Age: 67 years Sex: Female : 1955 Associated Diagnoses: None Author: Elizabeth Lott MD Procedure Operative Information Details: Date/ Time: 07/24/2023 09:57:00. Pre-Op Dx: Encounter for removal of ureteral stent (FAF16-OO Z46.6, Discharge, Medical), Kidney stones (NID29-YR N20.0, Discharge, Medical), Foreign Body in Bladder - T19.1XXA. Post-Op Dx: Same. Anesthesia Type: Local. Procedure: Local Cystoscopy with Stent Removal. Complications: None. Risks/Benefits/Infor med Consent: Surgical risks, benefits, details of the procedure have been explained to the patient, Full informed consent has been obtained. Intraoperative Information Prepped: The patient was placed in supine position, The patient was prepped with the Betadine solution. Anesthesia: 2% Xylocaine Jelly per urethra. Procedure: Cystoscopy and Left Stent Removal, The flexible Cystoscope was passed in retrograde fashion into the bladder without difficulty, The bladder was viewed in entirety and found to be without tumors or stones, Mild inflammation was seen surrounding the orifice with the stent seen protruding from it, The stent was then grasped and removed in its entirety. Specimens Removed: None. Devices Implanted: None. Postoperative Information Discharge: The patient tolerated the procedure well and was subsequently discharged home, - Obtain renal ultrasound in 6 weeks at [facility] to ensure no silent obstruction develops. - If no hydronephrosis, will continue surveillance of known right kidney stone with renal ultrasound and KUB in 6 months. Discussed calcium oxalate monohydrate 90%, 10% dihydrate. 1 stone was more resistant to ESWL due to being behind narrow infundibulum, which also causes stones. Dietary modifications discussed including increase fluid intake and lemon. Patient declines metabolic workup at this time. Will continue with dietary modifications. Normal [facility] Comment on above: Result Comment: Elec tronically Signed By: Oren BOB, Elizabeth Brown\.br\Date and Time Signed: 07/24/23 10:00 EST Lab Reportson 07-21-2023 Lab Reports [id number]# 1.00TIFF Normal [facility] Operative Reporton Operative Report [id number] #1.00TIFF [facility] Lab Reportson 07-07-2023 Lab Reports [id number] #1.00TIFF [facility] RAD - MISCon 07-06-2023 RAD - MISC [id number] #1.00TIFF Normal [facility] Insurance Correspondenceon 1 09-05-2022 Insurance Correspondence [id number]#1.00TIFF Normal [facility] RAD - MISCon 05-30-2023 RAD - MISC [id number] #1.00TIFF Normal [facility] Operative Reporton Operative Report [id number]# 1.00TIFF Normal [facility] RAD - MISCon 05-24-2023 RAD - MISC [id number] #1.00TIFF Normal [facility] Consultation Noteon 05-21-20 Consultation Note [id number]# 1.00TIFF Normal [facility] Lab Reportson 05-18-2023 Lab Reports [id number] #1.00TIFF Normal [facility] Lab Reports [id number] #1.00TIFF Normal [facility] Lab Reports [id number] #1.00TIFF Normal [facility] Lab Reports [id number] #1.00TIFF Normal [facility] Consultation Noteon 05-15-20 Consultation Note [id number] #1.00TIFF Normal [facility] ED Note-Physicianon 05-12-20 ED Note-Physician [id number] #1.00TIFF Normal [facility] Formson 05-11-2023 Forms [id number] #1.00TIFF [facility] Ambulatory Visit Summaryon 1 07-10-2022 Ambulatory Visit Summary BELLA COY :1955 Visit Date:05/10/2023 Ambulatory Visit Instructions Your Diagnosis Kidney stones Vaginal atrophy UTI symptoms Personal history of kidney stones Female bladder prolapse Tests Performed Urnls Dip Stick Auto w/o Microscopy POC 21849 Your Care Team Attending Physician - Elizabeth [...] then 2x/ week for maintainence Pickup at [email or web address] Unchanged alprazolam By Mouth Contact prescribing physician [...] Pharmacy Information [facility]: [address], [place] [phone] Test Results Urnls Dip Stick Auto w/o Microscopy POC 78444 (05/10/2023) Bilirubin Urine Dipstick - Negative Blood Urine Dipstick - 2+ Moderate Glucose Urine Dipstick - Negative Ketones Urine Dipstick - Negative Leukocytes Urine Dipstick - Negative Nitrite Urine Dipstick - Negative Protein Urine Dipstick - Negative Specific Galt Urine Dipstick - 1.025 Urine Appearance Urine [...] for you. S (more content not included)... [facility] Formson 05-10-2023 Forms [id number] #1.00TIFF [facility] Insurance Correspondenceon 07-10-2022 Insurance Correspondence [id number] 3#1.00TIFF [facility] Patient Educationon 05-10-20 23 Patient Education Nephrology Dietary Guidelines to Help [...] Spinach (cooked), rhubarb, beets, sweet potatoes, and Vietnamese chard. ? Peanuts. ? Potato chips, cayman islander fries, and baked potatoes with skin on. ? Nuts and nut products. ? Chocolate. ? If you regularly take a diuretic medicine, make sure to eat at least 1 or 2 servings of fruits or vegetables that are high in potassium each day. These include: ? Avocado. ? Banana. ? P[place]estone, prune, carrot, or tomato juice. ? Baked [...] fish oil, or vitamin B6. ? Take qhma-alp-hztviqt and prescription medicines only as told by your health care provider. These include supplements. What foods should I limit? Limit your in (more content not included)... Normal [facility] Screenson 05-10-2023 Screens [id number] #1.00TIFF Normal [facility] Urology Office/Clinic Noteon 05-10-2023 Urology Office/Clinic Note Chief Complaint kidney stones HPI Staff Pt is a new pt. Last seen in our office 02/23/09 by PRW due to Kidney Stones. S/P Lt ESWL 03/05/09. recently patient has been seeing Dr De Jesus in [place] but his practice no longer accepts pt's [...] ESWL, stag (more content not included)... Normal [facility] Comment on above: Result Comment: Elec tronically Signed By: Oren BOB, Elizabeth Brown\.br\Date and Time Signed: 05/10/23 12:16 EDT\.br\Electronically Co-Signed By: Shahana Mazariegos\.br\Date and Time Co-Signed: 05/10/23 10:28 EDT RAD - MISCon 03-26-2023 RAD - MISC [id number]# 1.00CD:127 Normal [facility] Basic Metabolic Profon 01-23 Anion gap [Moles/Vol] 10 mmol/L Normal -17 [facility] Comment on above: Performed By: #### B GAL, CBC #### [facility] [address] [facility] [place] [address] Field Administrator: Brooks Almazan MD BUN/CRE Ratio 30 High 9-20 [facility] Comment on above: Performed By: #### B GAL, CBC #### [facility] [address] [facility] [place] [address] Field Administrator: Brooks Almazan MD Calcium [Mass/Vol] 8.9 mg/dL Normal 8.6-10.4 [facility] Comment on above: Performed By: #### B GAL, CBC #### [facility] [address] [place] [address] Field Administrator: Brooks Almazan MD Chloride [Moles/Vol] 104 mmol/L Normal 98-107 [facility] Comment on above: Performed By: #### B MP, CBC #### [facility] [address] [facility] [place] [address] Field Administrator: Brooks Almazan MD CO2 [Moles/Vol] 27 mmol/L Normal 20-31 [facility] Comment on above: Performed By: #### B MP, CBC #### [facility] [address] [facility] [place] [address] Field Administrator: Brooks Almazan MD Creatinine [Mass/Vol] 0.5 mg/dL Normal 0.5-0.9 [facility] Comment on above: Performed By: #### B MP, CBC #### [facility] [address] [facility] [place] [address] Field Administrator: Brooks Almazan MD GFR/1.73 sq M.predicted among non-blacks MDRD (S/P/Bld) [Vol rate/Area] mL/min/{1.73_m2} Normal >60 [facility] Comment on above: Result Comment: These results [...] Performed By: #### B MP, CBC #### [facility] [address] [place] [address] Field Administrator: Brooks Almazan MD Glucose [Mass/Vol] 97 mg/dL Normal 70-99 [facility] Comment on above: Performed By: #### B MP, CBC #### [facility] [address] [place] [address] Field Administrator: Brooks Almazan MD Potassium [Moles/Vol] 4.8 mmol/L Normal 3.7-5.3 [facility] Comment on above: Result Comment: SPEC IMEN SLIGHTLY HEMOLYZED, RESULTS MAY BE ADVERSELY AFFECTED. Performed By: #### B MP, CBC #### [facility] [address] [place] [address] Field Administrator: Brooks Almazan MD Sodium [Moles/Vol] 141 mmol/L Normal 135-144 [facility] Comment on above: Performed By: #### B MP, CBC #### [facility] [facility] [place] [address] Field Administrator: Brooks Almazan MD Urea nitrogen [Mass/Vol] 15 mg/dL Normal 8-23 [facility] Comment on above: Performed By: #### B MP, CBC #### [facility] [address] [facility] [place] [address] Field Administrator: Brooks Almazan MD CBCon 01-23-2023 Erythrocyte distribution width (RBC) [Ratio] 12.4 % Normal 11.8-14.4 [facility] Comment on above: Performed By: #### B MP, CBC #### [facility] [address] [facility] [place] [address] Field Administrator: Brooks Almazan MD Hematocrit (Bld) [Volume fraction] 40.3 % Normal 36.3-47.1 [facility] Comment on above: Performed By: #### B MP, CBC #### [facility] [address] [place] [address] Field Administrator: Brooks Almazan MD Hemoglobin (Bld) [Mass/Vol] 13.1 g/dL Normal 11.9-15.1 [facility] Comment on above: Performed By: #### B MP, CBC #### [facility] [facility] [place] [address] Field Administrator: Brooks Almazan MD MCH (RBC) [Entitic mass] 30.0 pg Normal 25.2-33.5 [facility] Comment on above: Performed By: #### B MP, CBC #### [facility] [address] [place] [address] Field Administrator: Brooks Almazan MD MCHC (RBC) [Mass/Vol] 32.5 g/dL Normal 28.4-34.8 [facility] Comment on above: Performed By: #### B MP, CBC #### [facility] [address] [place] [address] Field Administrator: Brooks Almazan MD MCV (RBC) [Entitic vol] 92.4 fL Normal 82.6-102.9 [facility] Comment on above: Performed By: #### B MP, CBC #### [facility] [address] [place] [address] Field Administrator: Brooks Almazan MD NRBC Automated 0.0 per 100 WBC Normal 0.0 [facility] Comment on above: Performed By: #### B MP, CBC #### [facility] [address] [place] [address] Field Administrator: Brooks Almazan MD Platelet mean volume (Bld) [Entitic vol] 9.3 fL Normal 8.1-13.5 [facility] Comment on above: Performed By: #### B MP, CBC #### [facility] [address] [place] [address], [place] [address] Field Administrator: Brooks Almazan MD Platelets (Bld) [#/Vol] 234 10*3/uL Normal 138-453 [facility] Comment on above: Performed By: #### B MP, CBC #### [facility] [address] [place] [address] Field Administrator: Brooks Almazan MD RBC (Bld) [#/Vol] 4.36 10*6/uL Normal 3.95-5.11 [facility] Comment on above: Performed By: #### B MP, CBC #### [facility] [address] [facility] [place] [address] Field Administrator: Brooks Almazan MD WBC (Bld) [#/Vol] 7.1 10*3/uL Normal 3.5-11.3 [facility] Comment on above: Performed By: #### B MP, CBC #### [facility] [address] [facility] [place] [address] Field Administrator: Brooks Almazan MD CBC AUTO DIFFon 11-27-2021 BASO # 0.1 103/ul Normal 0.0-0.1 [facility] Comment on above: Performed By: #### C BC #### [facility] [address] [place] [address] Dr. Liliam Sanderson Basophils/100 WBC (Bld) 0.7 % Normal 0.2-2.0 [facility] Comment on above: Performed By: #### C BC #### [facility] [address] [address] [address] Liliam Sanderson EO # 0.2 103/ul Normal 0.0-0.7 [facility] Comment on above: Performed By: #### C BC #### [facility] [address] [address] [address] Liliam Sanderson Eosinophils/100 WBC (Bld) 2.2 % Normal 0.9-7.0 [facility] Comment on above: Performed By: #### C BC #### [facility] [address] [place] [address] Dr. Liliam Sanderson Erythrocyte distribution width (RBC) [Ratio] 12.0 % Normal 11.0-15.0 [facility] Comment on above: Performed By: #### C BC #### [facility] [address] [place] [address] Dr. Liliam Sanderson Hematocrit (Bld) [Volume fraction] 40.6 % Normal 36.0-48.0 [facility] Comment on above: Performed By: #### C BC #### [facility] [address] [place] [address] Dr. Liliam Sanderson Hemoglobin (Bld) [Mass/Vol] 13.3 g/dL Normal 12.0-16.0 [facility] Comment on above: Performed By: #### C BC #### [facility] [address] [place] [address] Dr. Liliam Sanderson IG # 0.03 10e3/ul Normal 0.00-0.03 [facility] Comment on above: Performed By: #### C BC #### [facility] [address] [place] [address] Dr. Liliam Sanderson IG % 0.3 % Normal 0.0-0.5 [facility] Comment on above: Performed By: #### C BC #### [facility] [address] [place] [address] Dr. Liliam Sanderson LYMPH # 3.2 103/ul Normal 1.2-3.8 [facility] Comment on above: Performed By: #### C BC #### [facility] [address] [place] [address] Dr. Liliam Sanderson Lymphocytes/100 WBC (Bld) 30.7 % Normal 20.5-60.0 [facility] Comment on above: Performed By: #### C BC #### [facility] [address] [place] [address] Dr. Liliam Sanderson MANUAL DIFF REQ NO Normal [facility] Comment on above: Performed By: #### C BC #### [facility] [address] [address] [address] Liliam Sanderson MCH (RBC) [Entitic mass] 30.2 pg Normal 26.7-34.0 [facility] Comment on above: Performed By: #### C BC #### [facility] [address] [place] [address] Dr. Liliam Sanderson MCHC (RBC) [Mass/Vol] 32.8 g/dL Normal 29.9-35.2 [facility] Comment on above: Performed By: #### C BC #### [facility] [address] [place] [address] Dr. Liliam Sanderson MCV (RBC) [Entitic vol] 92.1 fL Normal 81.0-99.0 [facility] Comment on above: Performed By: #### C BC #### [facility] [address] [place] [address] Dr. Liliam Sanderson MONO # 0.8 103/ul Normal 0.3-0.8 [facility] Comment on above: Performed By: #### C BC #### [facility] [address] [place] [address] Dr. Liliam Sanderson Monocytes/100 WBC (Bld) 7.5 % Normal 1.7-12.0 [facility] Comment on above: Performed By: #### C BC #### [facility] [address] [place] [address] Dr. Liliam Sanderson NEUT # 6.1 103/ul Normal 1.4-6.5 [facility] Comment on above: Performed By: #### C BC #### [facility] [address] [place] [address] Dr. Liliam Sanderson Neutrophils/100 WBC (Bld) 58.6 % Normal 43.0-75.0 [facility] Comment on above: Performed By: #### C BC #### [facility] [address] [place] [address] Dr. Liliam Sanderson Platelet mean volume (Bld) [Entitic vol] 8.8 fL Critically low 9.5-13.5 [facility] Comment on above: Performed By: #### C BC #### [facility] [address] [address] [address] Liliam Sanderson PLT 264 103/ul Normal 150-450 [facility] Comment on above: Performed By: #### C BC #### [facility] [address] [address] [address] Liliam Sanderson RBC 4.41 106/ul Normal 4.20-5.40 [facility] Comment on above: Performed By: #### C BC #### [facility] [address] [address] [address] Liliam Sanderson WBC 10.4 103/ul Normal 4.0-11.0 [facility] Comment on above: Performed By: #### C BC #### [facility] [address] [place] [address] Dr. Liliam Sanderson LIPID PROFILEon 11-27-2021 CHOL-HDL RATIO NORM SEE BELOW Normal [facility] Comment on above: Result Comment: 3.3 - 4.4 LOW RISK 4.4 - 7.1 AVERAGE RISK 7.1 - 11.0 MODERATE RISK >11.0 HIGH RISK Performed By: #### C MP, LIPID #### [facility] [address] [place] [address] Dr. Liliam Sanderson Cholesterol [Mass/Vol] 204 mg/dL Critically high <=200 [facility] Comment on above: Performed By: #### C MP, LIPID #### [facility] [address] [place] [address] Dr. Liliam Sanderson Cholesterol in HDL [Mass/Vol] 46 mg/dL Normal 40-60 [facility] Comment on above: Performed By: #### C MP, LIPID #### [facility] [address] [place] [address] Dr. Liliam Sanderson Cholesterol in LDL [Mass/Vol] 125.4 mg/dL Normal [facility] Comment on above: Performed By: #### C MP, LIPID #### [facility] [address] [place] [address] Dr. Liliam Sanderson Cholesterol.total/Melony sterol in HDL [Mass ratio] 4.4 {ratio} Normal [facility] Comment on above: Performed By: #### C MP, LIPID #### [facility] [address] [place] [address] Dr. Liliam Sanderson HDL NORMAL > or = 60 mg/dl - LOW CARDIOVASCULAR RISK <40 mg/dl - HIGH CARDIOVASCULAR RISK Normal [facility] Comment on above: Performed By: #### C MP, LIPID #### [facility] [address] [place] [address] Dr. Liliam Sanderson LDL CALC NORMAL SEE BELOW Normal [facility] Comment on above: Result Comment: <100 mg/dl OPTIMAL 100 - 129 mg/dl NEAR OR ABOVE OPTIMAL 130 - 159 mg/dl BORDERLINE HIGH 160 - 189 mg/dl HIGH >190 mg/dl VERY HIGH Performed By: #### C MP, LIPID #### [facility] [address] [place] [address] Dr. Liliam Sanderson Triglyceride [Mass/Vol] 163 mg/dL Critically high <=150 [facility] Comment on above: Performed By: #### C MP, LIPID #### [facility] [address] [place] [address] Dr. Liliam Sanderson VLDL CALC 32.6 mg/dL Normal [facility] Comment on above: Performed By: #### C MP, LIPID #### [facility] [address] [place] [address] Dr. Liliam Sanderson PROF 14(COMP METB)on 022 Albumin [Mass/Vol] 4.1 g/dL Normal 3.4-5.0 [facility] Comment on above: Performed By: #### C MP, LIPID #### [facility] [address] [place] [address] Dr. Liliam Sanderson Albumin/Globulin [Mass ratio] 1.2 {ratio} Normal [facility] Comment on above: Performed By: #### C MP, LIPID #### [facility] [address] [place] [address] Dr. Liliam Sanderson ALP [Catalytic activity/Vol] 61 U/L Normal 46-116 [facility] Comment on above: Performed By: #### C MP, LIPID #### [facility] [address] [address] [address] Liliam Sanderson ALT [Catalytic activity/Vol] 20 U/L Normal 14-59 [facility] Comment on above: Performed By: #### C MP, LIPID #### [facility] [address] [address] [address] Liliam Sanderson Anion gap [Moles/Vol] 11.4 mmol/L Normal [facility] Comment on above: Performed By: #### C MP, LIPID #### [facility] [address] [address] [address] Liliam Sanderson AST [Catalytic activity/Vol] 12 U/L Critically low 15-37 [facility] Comment on above: Performed By: #### C MP, LIPID #### [facility] [address] [address] [address] Liliam Sanderson Bilirubin [Mass/Vol] 0.5 mg/dL Normal 0.2-1.0 [facility] Comment on above: Performed By: #### C MP, LIPID #### [facility] [address] [address] [address] Liliam Sanderson Calcium [Mass/Vol] 8.9 mg/dL Normal 8.5-10.1 [facility] Comment on above: Performed By: #### C MP, LIPID #### [facility] [address] [place] [address] Dr. Liliam Sanderson Chloride [Moles/Vol] 102 mmol/L Normal 98-107 [facility] Comment on above: Performed By: #### C MP, LIPID #### [facility] [address] [address] [address] Liliam Sanderson CO2 [Moles/Vol] 28.3 mmol/L Normal 21.0-32.0 [facility] Comment on above: Performed By: #### C MP, LIPID #### [facility] [address] [address] [address] Liliam Sanderson Creatinine [Mass/Vol] 0.66 mg/dL Normal 0.55-1.02 [facility] Comment on above: Performed By: #### C MP, LIPID #### [facility] [address] [address] [address] Liliam Sanderson EGFR-AF MARTINIQUAIS >60 Normal >=60 [facility] Comment on above: Performed By: #### C MP, LIPID #### [facility] [address] [address] [address] Liliam Sanderson EGFR-NON AF MARTINIQUAIS >60 Normal >=60 [facility] Comment on above: Performed By: #### C MP, LIPID #### [facility] [address] [address] [address] Liliam Sanderson Globulin (S) [Mass/Vol] 3.4 g/dL Normal T [facility] Comment on above: Performed By: #### C MP, LIPID #### [facility] [address] [place] [address] Dr. Liliam Sanderson Glucose [Mass/Vol] 100 mg/dL Normal 74-106 [facility] Comment on above: Performed By: #### C MP, LIPID #### [facility] [address] [place] [address] Dr. Liliam Sanderson Potassium [Moles/Vol] 3.7 mmol/L Normal 3.5-5.1 [facility] Comment on above: Performed By: #### C MP, LIPID #### [facility] [address] [address] [address] Liliam Sanderson Protein [Mass/Vol] 7.5 g/dL Normal 6.4-8.2 [facility] Comment on above: Performed By: #### C MP, LIPID #### [facility] [address] [address] [address] Liliam Sanderson Sodium [Moles/Vol] 138 mmol/L Normal 136-145 [facility] Comment on above: Performed By: #### C MP, LIPID #### [facility] [address] [place] [address] Dr. Liliam Sanderson Urea nitrogen [Mass/Vol] 14.0 mg/dL Normal 7.0-18.0 [facility] Comment on above: Performed By: #### C MP, LIPID #### [facility] [address] [place], [place] [address] Dr. Liliam Sanderson Urea nitrogen/Creatinine [Mass ratio] 21.2 mg/mg Normal [facility] Comment on above: Performed By: #### C MP, LIPID #### [facility] [id number] Liliam Sanderson Vital Signs Date Time Vital Sign Value Performing Clinician Facility 01-02-2024 14:02-0400 Body height 152.4 cm FUNCTIONAL MANAGER Nadira Frequent Browser Work Phone: [facility] 01-02-2024 14:02-0400 Body mass index (BMI) [Ratio] 25.4 kg/m2 FUNCTIONAL MANAGER Nadira F[employer] Browser Work Phone: [facility] 01-02-2024 14:02-0400 Body weight 59 kg FUNCTIONAL MANAGER Nadira F[employer] Work Phone: [facility] 10-26-2023 11:18-0400 Body height 153.67 cm [facility] 10-26-2023 11:18-0400 Body mass index (BMI) [Ratio] 25 kg/m2 [facility] 10-26-2023 11:18-0400 Body weight 58.96 kg [facility] 05-10-2023 09:48-0400 Blood Pressure Location Elizabeth Lue [facility] 05-10-2023 09:48-0400 Diastolic blood pressure 67 mm[Hg] Elizabeth Lue [facility] 05-10-2023 09:48-0400 Heart rate 73 /min Elizabeth Lue [facility] 05-10-2023 09:48-0400 Respiratory rate 16 /min Elizabeth Lue [facility] 05-10-2023 09:48-0400 Systolic blood pressure 101 mm[Hg] Elizabeth Lue [facility] 02-14-2023 14:00-0400 Body height 153.67 cm Himanshu Scovanner Other [employer] Other 02-14-2023 14:00-0400 Body mass index (BMI) [Ratio] 24.78 kg/m2 Himnashu Scovanner Other [employer] Other 02-14-2023 14:00-0400 Body weight 58.51 kg Himanshu Scovanner Other [employer] Other 02-14-2023 14:00-0400 Diastolic blood pressure 84 mm[Hg] Himanshu Scovanner Other [employer] Other 02-14-2023 14:00-0400 Systolic blood pressure 142 mm[Hg] Himanhsu Scovanner Other [employer] Other 11-15-2022 16:30-0400 Body height 153.67 cm Himanshu Scovanner Other [employer] Other 11-15-2022 16:30-0400 Body mass index (BMI) [Ratio] 26.27 kg/m2 Himanshu Scovanner Other [employer] Other 11-15-2022 16:30-0400 Body weight 62.05 kg Himanshu Scovanner Other [employer] Other 11-15-2022 16:30-0400 Diastolic blood pressure 76 mm[Hg] Himanshu Scovanner Other [employer] Other 11-15-2022 16:30-0400 Systolic blood pressure 128 mm[Hg] Himanshu Scovanner Other [facility] [employer] Other Encounters Encounter Date Encounter Type Care Provider Facility Start: 01-30-2024 End: 01-30-2024 ambulatory [place] Agiuaremily Facility:[facility] Start: 01-30-2024 End: 01-30-2024 Patient encounter procedure [place] Toney [facility] Start: 01-24-2024 End: 01-24-2024 ambulatory Elizabeth Lott Facility:[facility] Start: 01-24-2024 End: 01-24-2024 Patient encounter procedure Elizabeth Lott [facility] Start: 01-16-2024 End: 01-16-2024 ambulatory FUNCTIONAL MANAGERKhushi Martínez Work Phone: [facility] Work Phone: Start: 01-16-2024 End: 01-16-2024 Patient encounter procedure FUNCTIONAL MANAGERKhushi Martínez Work Phone: [facility]CT Scan [facility] [place] Work Phone: Start: 01-02-2024 End: 01-02-2024 ambulatory FUNCTIONAL MANAGERKhushi Martínez Work Phone: [facility] Work Phone: Start: 01-02-2024 End: 01-02-2024 Patient encounter procedure FUNCTIONAL MANAGERKhushi Martínez Work Phone: [facility] Work Phone: Start: 12-08-2023 End: 12-08-2023 ambulatory NADIRA MARTÍNEZ [facility] Start: 11-14-2023 End: 11-14-2023 ambulatory Himanshu Borjas Facility:[facility] Start: 11-14-2023 End: 11-14-2023 ambulatory FUNCTIONAL MANAGER Nadira Martínez Work Phone: [facility] Work Phone: Start: 11-14-2023 End: 11-14-2023 Patient encounter procedure FUNCTIONAL MANAGERKhushi Martínez Work Phone: [facility]XRay [facility] [place] Work Phone: Start: 10-26-2023 End: 10-26-2023 ambulatory [facility] Work Phone: Start: 10-26-2023 End: 10-26-2023 Patient encounter procedure [facility] Work Phone: Start: 07-24-2023 End: 07-24-2023 ambulatory Elizabeth Lott Facility:[facility] Start: 07-24-2023 End: 07-24-2023 Patient encounter procedure Elizabeth Lott [facility] Start: 07-12-2023 End: 07-12-2023 ambulatory Elizabeth Lott Facility:CD:[id number] Start: 07-05-2023 Refill Mildredgabino Ramakrishnatrinh sser FUNCTIONAL MANAGER-DERRICK BUILDER Work Phone: [facility] Comment on above: Med Refill Start: 05-24-2023 End: 05-24-2023 ambulatory Elizabeth Lott Facility:CD:[id number] Start: 05-10-2023 End: 05-10-2023 ambulatory NADIRA MARTÍNEZ Facility:[facility] Start: 05-10-2023 End: 05-10-2023 Patient encounter procedure Elizabeth Lott [facility] Start: 02-14-2023 End: 02-14-2023 ambulatory Himanshu Borjas Other [employer] Other Start: 02-14-2023 Office outpatient visit 15 minutes Himanshu Borjas [facility] Start: 01-23-2023 End: 01-23-2023 ambulatory [facility] Start: 12-20-2022 End: 12-20-2022 ambulatory Fernando Pate Daliagerri Facility:[facility] Start: 11-15-2022 End: 11-15-2022 ambulatory Himanshu Borjas Other [facility] [employer] Other Start: 11-15-2022 Office outpatient ne w 30 minutes Himanshu Borjas [facility] Start: 09-30-2022 End: 09-30-2022 ambulatory [facility] Facility: Start: 06-21-2022 End: 06-24-2022 ambulatory JUVENAL HARRELL [facility] Start: 06-21-2022 End: 06-23-2022 Subsequent hospital visit by physician [facility] Ir Nurse 1 [facility] CT Scan Comment on above: Chest pain, unspecif ied type; Dizziness; Abnormal stress ECG Start: 11-27-2021 End: 11-28-2021 ambulatory NADIRA MARTÍNEZ Facility: Procedures Date Procedure Procedure Detail Performing Clinician Start: 01-16-2024 Computed tomography of abdomen and pelvis with contrast RISA Martínez Work Phone: Start: 07-24-2023 Removal of ureteral stent [place] Dawna Start: 01-07-2023 Stented artery (finding) Elizabeth Lue Start: 03-05-2009 Extracorporeal shock wave lithotripsy of calculus of kidney Elizabeth Lue Start: 01-22-2009 Extracorporeal shock wave lithotripsy of calculus of kidney Elizabeth Lue Start: 09-28-2006 Extracorporeal shock wave lithotripsy of calculus of kidney Elizabeth Lue Start: 12-13-2005 Urodynamic studies Ute y Lue Start: 12-01-2005 Extracorporeal shock wave lithotripsy of calculus of kidney Elizabeth Lott Start: 11-25-2005 Transurethral cystoscopy Elizabeth Lott Bladder care Elizabeth Lott Comment on above: sling Plan of Treatment Date Care Activity Detail Author Start: 06-19-2024 Adult BMI Screening Adult BMI Screen ing [facility] Start: 06-19-2024 Tobacco Screening Tobacco Screening [facility] Start: 01-02-2024 Patient referral [facility] Work Phone: Start: 08-17-2023 Tobacco Counseling Tobacco Counselin g [facility] Start: 03-10-2023 Influenza vaccination Influenza Vacc ine [facility] Start: 06-15-2022 Annual Wellness Visi t (AWV) Annual Wellness Visit (AWV) [facility] Start: 02-07-2022 Influenza vaccination Flu vaccine (# 1) [facility] Start: 2020 Fall Risk Screening Fall Risk Screen ing [facility] Start: 2020 Pneumococcal 65+ yea rs Vaccine (1 - PCV) Pneumococcal 65+ years Vaccine (1 - PCV) [facility] Start: 2010 Screening for osteoporosis DEXA (modify frequency per FRAX score) [facility] Start: 2005 Administration of varicella zoster vaccine Zoster (Shingles) Vaccine (1 of 2) [facility] Start: 2005 Screening for malign ant neoplasm of breast Breast cancer [facility] Start: 2005 Shingles vaccine (1 of 2) Hinojosa gles vaccine (1 of 2) [facility] Start: 2000 Screening for malign ant neoplasm of colon [facility] Start: 1995 Lipid panel Lipids [facility] Start: 1974 DTaP,Tdap and Td Vac cines (1 - Tdap) DTaP,Tdap and Td Vaccines (1 - Tdap) [facility] Start: 1974 DTaP/Tdap/Td vaccine (1 - Tdap) DTaP/Tdap/Td vaccine (1 - Tdap) [facility] Start: 1973 Hepatitis C screening Hepatitis C sc reen [facility] Start: 1967 Depression Screen Depression Screen [facility] Start: 1967 Depression Screening Depression Scre ening [employer] Start: 03-06-1956 COVID-19 Vaccine (#1) COVID-19 Vacci ne (#1) [facility] Start: 1955 Medicare Annual Well ness Visit Medicare Annual Wellness Visit [facility] CT Abdomen and Pelvi s W contrast IV [facility] End: 06-21-2022 CTA CORON EJECT FRAC WALL MOTION CTA CORON EJECT FRAC WALL MOTION Imaging Routine Chest pain, unspecified type Dizziness Abnormal stress ECG 1 Occurrences starting 06/21/2022 until 06/21/2022 [facility] Work Phone: Comment on above: 1 Occurrences starti ng 06/21/2022 until 06/21/2022 Fluoroscopy of esophagus [facility] Patient referral [facility] Work Phone: Payers Date Payer Category Payer Self-pay 2022 Private Health Insurance [id number] 2021 Medicare HUMANA MEDICARE [place] [id number] 2021-Present [phone] [address] [address] [place] [address] [id number] 1959 Medicare [id number] 1955 Unknown [id number] [id number] .176 1955 Unknown [id number] [id number] .593 1955 Unknown [id number] 2.16.840.1.906185.3.579.2 .593 1955 Unknown [id number] 2.16.840.1.448780.3.579.2 .177 1955 Unknown [id number] 2.16.840.1.978383.3.579.2 .1286 1955 Unknown [id number] 2.16.840.1.171911.3.579.2 .727 1955 Unknown [id number] 2.16.840.1.984583.3.579.2 .727 1955 Unknown [id number] 2.16.840.1.420482.3.579.2 .727 1955 Unknown [id number] 2.16.840.1.688585.3.579.2 .727 1955 Unknown [id number] 2.16.840.1.308195.3.579.2 .727 1955 Unknown [id number] 2.16.840.1.286132.3.579.2 .727 Unknown HCAP/HFA/FAP Active [id number] Unknown [id number] [id number] .531 Unknown [id number] [id number] .531 Social History Date Type Detail Facility [facility] [employer] Phone: Start: 1955 Sex Assigned At Not on file B [facility] [employer] Phone: Start: 08-19-2020 End: 06-19-2023 Sex Assigned At [facility] Start: 05-10-2023 Tobacco smoking status Light t obacco smoker (finding) [facility] Start: 04-27-2022 [facility] History of tobacco use [facility] Start: 08-19-2020 End: 04-27-2022 Cigarettes smoked current (pack per day) - Reported 0.5 [facility] Start: 04-27-2022 Tobacco use and exposure Smoke less tobacco non-user [facility] Start: 06-19-2023 Alcohol intake Ex-drinker (finding) [facility] Housing Instability Unknown [facility] Start: 04-27-2022 Tobacco Comment has been decre asing daily [facility] Start: 05-06-2022 Alcohol Comment social--rare [facility] Start: 12-20-2022 [facility] Start: 1955 Sex Assigned At Female F [facility] Functional Status Date Assessment Result Facility 05-10-2023 Functional Status N/A [facility] Clinical Notes 11-15-2022 to 01-02-2024 Note Date & Type Note Facility 01-02-2024 Evaluation note Authored January 02, 2024 2:23 pm Patient is positive for dysp epsia, patient notes dysphagia, epigastric pain, globus sensation and daily nausea Patient is also positive for abdominal pain [facility] Work Phone: 1(188) 653-501106-25-2024 Hospital Discharge instructionsAmbulatory Orders* Referral to Gastroenterology Time Frame: 01/02/24, Location: None Selected [facility] Work Phone: 1(220) 427-718602-01-2024 Hospital Discharge instructions Follow Up Care 08/10/2023 14:01:54 With:Orne BOB, JOCELYN Temple, URO Address: [address] [place] [phone] When: Unknown [facility] 01-18-2024 Note [id number] 07-27-2023 [id number] [facility]01-17-2024 [id number] Combs [facility]01-15-2024 Hospital Discharge instructions Patient Education 07/24/2023 09:56:36 EU - Cystoscopy with Stent Removal Discharge Instructions (CUSTOM) Cystoscopy with Stent Removal Voiding after the procedure: there may be some pain, burning, urgency, frequency and blood tinged urine following the procedure. These symptoms usually resolve within 2-5 days. Drink the amount of fluid it takes to keep the urine pink to yellow or clear in color. Drinking enough water and fluids will help to ease any discomfort after your procedure. If you are having problems that seem out of the ordinary, please call. If unable to contact your physician and you feel it is an emergency, go to the nearest emergency room or call 911 Diet you may resume your normal diet. Activity you may resume your normal activities Call if you have a fever over 100 degrees. 07/24/2023 09:56:36 Dietary Guidelines to Help Prevent Kidney Stones Dietary Guidelines to Help Prevent Kidney Stones Kidney stones are deposits of minerals and salts that form inside your kidneys. Your risk of developing kidney stones may be greater depending on your diet, your lifestyle, the medicines you take, and whether you have certain medical conditions. Most people can lower their risks of developing kidney stones by following these dietary guidelines. Your dietitian may give you more specific [...] about 300 mg of calcium at each meal.Foods that contain 200 500 mg of calcium a serving include: ?8 oz (237 mL) of milk, ffsaujp-ohuufvdzwpdl-wiyof milk, and calcium- fortifiedfruit juice. Calcium-fortified means that calcium has been [...] the table and allow each person to addtheir own salt to taste. Use vegetable protein, such as beans, textured vegetable protein (TVP), or tofu, instead of meat inpasta, casseroles, and soups. Meal planning Eat less salt, if told by your dietitian. To do this: ?Avoid eating processed or pre-made food. ?Avoid eating fast food. Eat less animal protein, including cheese, meat, poultry, or fish, if told by your dietitian. To dothis: ?Limit the number of times you have meat, poultry, fish, or cheese each week. Eat a diet free of meat at least 2 days a week. ?Eat only one serving each day of meat, poultry, fish, or seafood. ?When you prepare animal proteins, cut pieces into small portion sizes. For most meat and fish, oneserving is about the size of the palm of your hand. Eat at least five servings of fresh fruits and vegetables each day. To do this: ?Keep fruits and vegetables on hand for snacks. ?Eat one piece of fruit or a handful of berries with breakfast. ?Have a salad and fruit at lunch. ?Have two kinds of vegetables at dinner. You may be told to limit foods that are high in a substance called oxalate. These include: ?Spinach (cooked), rhubarb, beets, sweet potatoes, and Vietnamese chard. ?Peanuts. ?Potato chips, cayman islander fries, and baked potatoes with skin on. ?Nuts and nut products. ?Chocolate. If you regularly take a diuretic medicine, make sure to eat at least 1 or 2 servings of fruits or vegetables that are high in potassium each day. These include: ?Avocado. ?Banana. ?[place], prune, carrot, or tomato juice. ?Baked potato. ?Cabbage. ?Beans and split peas. Lifestyle Drink enough fluid to keep your urine pale yellow. This is the most important thing you can do. Spread your fluid intake throughout the day. If you drink alcohol: ?Limit how much you have to: ?0 1 drink a day for women who are not . ?0 2 drinks a day for men. ?Know how much alcohol is in your drink. [...] provider and dietitian about taking daily supplements. Depending on your health and the cause of your kidney stones, you may be told: ?Do not take high-dose supplements of vitamin C (1,000 mg a day or more). ?To take a calcium supplement. ?To take a daily probiotic supplement. ?To take other supplements such as magnesium, fish oil, or vitamin B6. Take rpzc-gie-xevxzlq and prescription medicines only as told by [...] sausages, meat loaves, and hot dogs. Dairy Cheeses. Beverages Regular soft drinks. Regular vegetable juice. Seasonings and condiments Seasoning blends with salt. Salad dressings. Soy sauce. Ketchup. Barbecue sauce. Other foods Canned soups. Canned pasta sauce. Casseroles. Pizza. Lasagna. Frozen meals. Potato chips. Venezuelan fries. The items listed above may not be a complete list of foods and beverages you should limit. Contact a dietitian for more information. What foods should I avoid? Talk to your dietitian about specific foods you should avoid based on the type of kidney stones youhave and your overall health. Fruits Grapefruit. The item listed above may not be a complete list of foods and beverages you should avoid. Contact adietitian for more information. Summary Kidney stones are [...] with your health care provider. Document Revised: 10/06/2022 Document Reviewed: 10/06/2022 [employer] Patient Education 2022 [employer]. Follow Up Care 07/13/2023 14:28:20 With:Elizabeth Lott Address: [address] [place] [phone] Business (1) [facility] Lamont Morales, [address] [phone] Business (1) When: Unknown Comments:Obtain renal US in 6 weeks at [facility]. Office to call with results. If no hydronephrosis, office will call to schedule follow up in 6 months with KUB and renal US [facility]01-15-2024 NoteCystoscopy with Stent Removal ? Voiding after the procedure: there may be some pain, burning, urgency, frequency and blood tingedurine following the procedure. These symptoms usually resolve within 2-5 days. Drink the amount of fluid it takes to keep the urine pink to yellow or clear in color. Drinking enough water and fluids will help to ease any discomfort after your procedure. ? If you are having problems that seem out of the ordinary, please call. ? If unable to contact your physician and you feel it is an emergency, go to the nearest emergency room or call 911 ? Diet ? you may resume your normal diet. ? Activity ? you may resume your normal activities ? Call if you have a fever over 100 degrees. Nephrology Dietary Guidelines to Help Prevent Kidney Stones Kidney stones are deposits of minerals and salts that form inside your kidneys. Your risk of developing kidney stones may be greater depending on your diet, your lifestyle, the medicines you take, and whether you have certain medical conditions. Most people can lower their risks of developing kidney stones by following these dietary guidelines. Your dietitian may give you more specific [...] ? 8 oz (237 mL) of milk, dnhcjgn-bzgyshuuwlgz-rswcm milk, and calcium- fortifiedfruit juice. Calcium-fortified means that calcium has been [...] table and allow each person to add their own salt to taste. ? Use vegetable [...] or seafood. ? When you prepare animal proteins, cut pieces into small portion sizes. For [...] two kinds of vegetables at dinner. ? You may be told to limit foods that are high in a substance called oxalate. These include: ? Spinach (cooked), rhubarb, beets, sweet potatoes, and Vietnamese chard. ? Peanuts. ? Potato chips, cayman islander fries, and baked potatoes with skin on. ? Nuts and nut products. ? Chocolate. ? If you regularly take a diuretic medicine, make sure to eat at least 1 or 2 servings of fruits orvegetables that are high in potassium each day. These include: ? Avocado. ? Banana. ? Pipestone, prune, carrot, or tomato juice. ? Baked potato. ? Cabbage. ? Beans and split peas. Lifestyle ? Drink enough fluid to keep your urine pale yellow. This is the most important thing you can do. Spread your fluid intake throughout the day. ? If you drink alcohol: ? Limit how much you have to: ? 0?1 drink a day for women who are not . ? 0?2 drinks a day for men. ? Know how much alcohol is in your drink. In the [place] one drink equals one 12 oz bottle of beer (355 mL), one 5 oz glass of wine (148 mL), or one 1? oz glass of (more content not included)...[facility]12-27-2023 Miscellaneous Notes* Telephone Encounter - Cristine Rodriguez RN - 07/05/2023 5:30 PM EST Ov 06/19/23 [facility]* Telephone Encounter - Cristine Rodriguez RN - 07/05/2023 5:30 PM EST Ov 06/19/23 [facility]11-01-2023 Hospital Discharge instructions Patient Education 05/10/2023 10:27:19 Dietary Guidelines [...] about 300 mg of calcium at each meal.Foods that contain 200 500 mg of calcium a serving include: ?8 oz (237 mL) of milk, vxnwyiu-nzoijnpjskew-dyrxl milk, and calcium- fortifiedfruit juice. Calcium-fortified means that calcium has been [...] the table and allow each person to addhis or her own salt to taste. Use vegetable protein, such as beans, textured vegetable protein (TVP), or tofu, instead of meat inpasta, casseroles, and soups. Meal planning Eat less salt, if told by your dietitian. To do this: ?Avoid eating processed or pre-made food. ?Avoid eating fast food. Eat less animal protein, including cheese, meat, poultry, or fish, if told by your dietitian. To dothis: ?Limit the number of times you have [...] ?Spinach (cooked), rhubarb, beets, sweet potatoes, and Vietnamese chard. ?Peanuts. ?Potato chips, cayman islander fries, and baked potatoes with skin on. ?Nuts and nut products. ?Chocolate. If you regularly take a diuretic medicine, make sure to eat at least 1 or 2 servings of fruits or vegetables that are high in potassium each day. These include: ?Avocado. ?Banana. ?Pipestone, prune, carrot, or tomato juice. ?Baked potato. [...] taking daily supplements. You may be told thefollowing depending on your health and the cause of your kidney stones: ?Not to take supplements with vitamin C. ?To take a calcium supplement. ?To take a daily probiotic supplement. ?To take other supplements such as magnesium, fish oil, or vitamin B6. Take euhc-sab-deszqcc and prescription medicines only as told by [...] Casseroles. Pizza. Lasagna. Frozen meals. Potato chips. Venezuelan fries. The items listed above may not be a complete list of foods and beverages you should limit. Contact a dietitian for more information. What foods should I avoid? Talk to your dietitian about specific foods you should avoid based on the type of kidney stones youhave and your overall health. Fruits Grapefruit. The item listed above may not be a complete list of foods and beverages you should avoid. Contact adietitian for more information. Summary Kidney stones are [...] provider. Document Revised: 03/07/2022 Document Reviewed: 03/07/2022 [employer] Patient Education 2022 [employer]. Follow Up Care 02/01/2023 14:06:36 With:Oren BOB, Elizabeth Brown, JOCELYN, URO Address: When: Unknown Comments:Jaylan Vega ESWL/Stent [facility] 08-08-2023 Evaluation note* Encounter Date Diagnosis Assessment Notes Treatment Notes Treatment Clinical Notes Feb, Hiatal hernia (ICD-10 - K44.9) Pt is taking omeprazole. Pt states this medication is working for her. Pt states she still some times gets acid reflux, but overall, she is doing well. Pt RTO in 6 months Feb, Esophageal stricture (ICD-10 - K22.2) [employer] Other 05-09-2023 Evaluation note* Encounter Date Diagnosis Assessment Notes Treatment Notes Treatment Clinical Notes November, GERD (gastroesophageal reflux disease) (ICD-10 - K21.9) we will obtain a records release to get records from [facility] It is recommened that patient get EGD and she argees to have this done Patient has family history of esophageal cancer November, Family history of esophageal cancer (ICD-10 - Z80.0) [employer] Other Evaluation + Plan note No data available for this section [facility] evaluation + Plan note Future Appointments Appointment Date:01/30/2024 08:00:00 AM Scheduled Provider:Albania Chow Location:[facility] Appointment Type:URO Office Visit [facility] evalfyxqoc note* Diagnosis Chest pain, unspecified type Dizziness Dizziness and giddiness Abnormal stress ECG Other nonspecific abnormal cardiovascular system function study documented in this encounter [facility] Work Phone: evaldrjapc note* Diagnosis Onset Date Resolution Status Hiatal hernia acute [facility] Work Phone: Evaluation note* Author Himanshu Borjas [facility] Authored January 02, 2024 2:23 pm Patient is positive for dysp epsia, patient notes dysphagia, epigastric pain, globus sensation and daily nausea Patient is also positive for abdominal pain [facility] Work Phone: History general Narrative - Reported* Type Description Date Medical History kidney stones Medical History hypertension Medical History gastritis Medical History Hiatal hernia Surgical History kidney stone Surgical History fx nose Surgical History ablasion Surgical History tubal ligation [employer] Other History general Narrative - Reported* Type Description Date Medical History kidney stones Medical History hypertension Medical History gastritis Medical History Hiatal hernia Surgical History kidney stone Surgical History fx nose Surgical History ablasion Surgical History tubal ligation Hospitalization History Heart procedure [employer] Other Hospital Discharge instructions No data available for this section [facility] [place] InstructionsNot on filedocumented in this encounter [facility] No data available for this section [facility] Reason for Referral Specialty Diagnoses / Procedures Referred By Milton jimenez Referred To Contact Radiology Diagnoses Chest pain, unspecified type Dizziness Abnormal stress ECG R07.9 (ICD-10-CM) - Chest pain, unspecified type Procedures CTA CORON EJECT FRAC WALL MOTION CHG CT ANGIO HRT CORNRY ART/BYPASS GRFTS CONTRST 3D POST 16086 - CHG CT ANGIO HRT CORNRY ART/BYPASS GRFTS CONTRST 3D POST Juvenal Harrell MD [address] [place] [address] Referral ID Status Reason Start Date Expiration Date V isits Requested Visits Authorized [id number] Authorized 06/21/2022 05/07/2023 1 1 Summary Purpose Family History No Family History Records Found Relationship Condition Age at Onset Recorded Date/T micah Not Specified Depression Unknown father Myocardial infarction Unknown Hypertension Unknown brother Myocardial infarction Unknown brother Heart problem Unknown sister Myocardial infarction Unknown grandparent Heart disease Unknown Parkinson's disease Unknown grandparent Myocardial infarction Unknown family member Malignant neoplasm of breast Unknown grandparent Malignant neoplasm of esophagus Unknown brother Hypertension Unknown father Unknown sister Hypertension Unknown Relationship Condition Age at Onset Recorded Date/T micah mother Depression Unknown father Myocardial infarction Unknown Hypertension Unknown brother Myocardial infarction Unknown brother Heart problem Unknown sister Myocardial infarction Unknown grandparent Heart disease Unknown Parkinson's disease Unknown grandparent Myocardial infarction Unknown family member Malignant neoplasm of breast Unknown grandparent Malignant neoplasm of esophagus Unknown brother Hypertension Unknown father Unknown sister Hypertension Unknown Advance Directives No Advanced Directives Records Found Advance Directive Response Recorded Date/ Time Advance Directives No October 25 11:06am Chief Complaint and Reason for Visit Chief Complaint follow up/6 month Reason for Visit Hiatal hernia Chief Complaint follow up/6 month R05.9 Reason for Visit Hiatal hernia Chief Complaint follow up/6 month R05.9 follow up Reason for Visit Hiatal hernia Abdominal pain Esophageal dysmotility GERD (gastroesophageal reflux disease) Hiatal hernia Nausea Chief Complaint follow up/6 month R05.9 follow up R10.9 Reason for Visit Hiatal hernia Abdominal pain Esophageal dysmotility GERD (gastroesophageal reflux disease) Hiatal hernia Nausea Additional Source Comments Reason for Visit (unrecogniz ed section and content) Specialty Diagnoses / Procedures Referred By Contac t Referred To Contact Radiology Diagnoses Chest pain, unspecified type Dizziness Abnormal stress ECG R07.9 (ICD-10-CM) - Chest pain, unspecified type Procedures CTA CORON EJECT FRAC WALL MOTION CHG CT ANGIO HRT CORNRY ART/BYPASS GRFTS CONTRST 3D POST 23388 - CHG CT ANGIO HRT CORNRY ART/BYPASS GRFTS CONTRST 3D POST Juvenal Harrell MD [address] [place] [address] Referral ID Status Reason Start Date Expiration Date V isits Requested Visits Authorized [id number] Authorized 06/21/2022 05/07/2023 1 1 Reason Comments Med Refill Care Teams (unrecognized sec tion and content) Deicer Repairer Pneumatic Relationship Specialty Start Date End Date Nadira Martínez APRN - CNP [address] [place] [address] PCP - General Certified Nurse Practitioner 06/17/22 Deicer Repairer Pneumatic Relationship Specialty Start Date End Date Nadira Martínez APRN-CNP [address] [place] [address] PCP - General Family Medicine 11/23/20 Team Status: Active Member Role Status Dates Nadira Martínez APRN MANAGER SOCIAL SERVICES-C Primary Care Provider Active Team Status: Inactive Member Role Status Dates Nadira Martínez APRN MANAGER SOCIAL SERVICES-C Primary Care Provider Active Start: October 26, 2023 End: October 26, 2023 Himanshu Borjas APRN Attending Provider Active Start: October 26, 2023 End: October 26, 2023 Team Status: Inactive Member Role Status Dates Nadira Martínez APRN MANAGER SOCIAL SERVICES-C Primary Care Provider Active Start: November 14, 2023 End: November 14, 2023 Himanshu Borjas APRN Attending Provider Active Start: November 14, 2023 End: November 14, 2023 Team Status: Inactive Member Role Status Dates Nadira Martínez APRN MANAGER SOCIAL SERVICES-C Primary Care Provider Active Start: January 02, 2024 End: January 02, 2024 Himanshu Borjas APRN Attending Provider Active Start: January 02, 2024 End: January 02, 2024 Team Status: Inactive Member Role Status Dates Nadira Martínez APRN MANAGER SOCIAL SERVICES-C Primary Care Provider Active Start: January 16, 2024 End: January 16, 2024 Himanshu Borjas APRN Attending Provider Active Start: January 16, 2024 End: January 16, 2024 INFORMATION SOURCE (unrecogn ized section and content) DATE CREATED AUTHOR 06/30/2022 [facility] DATE CREATED AUTHOR AUTHOR'S ORGANIZ ATION 10/06/2022 [facility] DATE CREATED AUTHOR AUTHOR'S ORGANIZ ATION 01/23/2023 [facility] DATE CREATED AUTHOR AUTHOR'S ORGANIZ ATION 11/15/2023 [facility] DATE CREATED AUTHOR AUTHOR'S ORGANIZ ATION 12/12/2023 [facility] DATE CREATED AUTHOR AUTHOR'S ORGANIZ ATION 02/02/2024 [facility] Goals (unrecognized section and content) Goals may be documented in a n alternate section FOR RECORDS PERTAINING TO PATIENTS WHO ARE [...] BE BASED ON THE PRIMARY CLINICAL RECORDS. [employer] provides no warranty or guarantee of the accuracy or completeness of information in this document.
[2024-02-24 10:42] LABS: Hematocrit 40.9 % (36.0-48.0); Hemoglobin 13.5 g/dL (12.0-16.0); Mean Corpuscular Hemoglobin 29.9 pg (26.7-34.0); Mean Corpuscular Volume 90.7 fL (81.0-99.0); Mean Platelet Volume 8.9 fL (9.5-13.5); Platelet Count 300 10^3/uL (150-450); Red Blood Count 4.51 10^6/uL (4.20-5.40); Red Cell Distribution Width 12.3 % (11.0-15.0); White Blood Count 7.2 10^3/uL (4.0-11.0)
[2024-02-24 11:01] LABS: Alanine Aminotransferase 17 U/L (14-59); Albumin Globulin Ratio 1.1; Albumin Level 3.8 g/dL (3.4-5.0); Alkaline Phosphatase 65 U/L (46-116); Anion Gap 10.7; Aspartate Amino Transferase 10 U/L (15-37); BUN Creatinine Ratio 15.8; Bilirubin Total 0.4 mg/dL (0.2-1.0); Calcium 8.9 mg/dL (8.5-10.1); Carbon Dioxide 30.1 mmol/L (21.0-32.0); Chloride 101 mmol/L (98-107); Chol HDL Ratio 6.3; Cholesterol 266 mg/dL (<=200); Estimated GFR (African America >60 (>=60); Estimated GFR (Non-African Ame >60 (>=60); Globulin 3.4 g/dL; Glucose 97 mg/dL (74-106); HDL Cholesterol 42 mg/dL (40-60); Potassium 3.8 mmol/L (3.5-5.1); Sodium 138 mmol/L (136-145); Total Protein 7.2 g/dL (6.4-8.2); Triglycerides 203 mg/dL (<=150); VLDL CHOLESTEROL 40.6 mg/dL
== END 2024-02-24 09:44 | disposition home or self-care (01) ==
LOC: LAB 09:43
PROVIDERS: Visit Provider Nurse Practitioner
DX: E78.5 Hyperlipidemia, unspecified (principal); I10 Essential (primary) hypertension
CPT/HCPCS: 36415; 80053; 80061; 85027

== ENCOUNTER 2024-03-09 00:01 | Emergency (ER) | payer MEDICARE, SELFPAY ==
[2024-03-09 00:30] VITALS: BP 123/65; PULSE 77; TEMP 36.9; O2SAT 97; BMI 24.4
--- NOTE | 2024-03-09 01:00 | ECG_ITS ---
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
--- NOTE | 2024-03-09 01:16 | CT_ITS ---
[address] [address] Patient Name: SLY COY MRN: [id number] date: 1955 Sex: F Assigned Patient Location: ER Current Patient Location: ER Accession/Order Number: [id number] Exam Date: 03/09/2024 02:20 Report Date: 03/09/2024 02:56 At the request of: MIKHAIL GRANT Procedure: CT cervical spine wo con EXAM: CT cervical spine wo con CLINICAL INDICATION: fall COMPARISON: CT cervical spine 01/10/2019. TECHNIQUE: Axial CT images of the cervical spine were obtained without intravenous contrast. Coronal and sagittal reformatted images were also reviewed. Dose reduction techniques were achieved by using automated exposure control and/or adjustment of mA and/or kV according to patient size and/or use of iterative reconstruction technique. FINDINGS: Osseous Mineralization: Mild osseous demineralization limits evaluation of fine osseous detail. Trauma: No fracture, traumatic malalignment, facet dislocation, or discrete epidural hemorrhage. Alignment: Normal craniocervical and cervicothoracic junctions. Vertebral Body Heights: Maintained. Spondylotic Changes: Multilevel spondylotic changes include varying degrees of intervertebral disc height loss, osteophytic ridging, endplate sclerosis, and facet/uncovertebral joint hypertrophy. Soft Tissues: No acute abnormalities. Other: Clear visualized lung apices. Airway is patent. CT/CT cervical spine wo con IMPRESSION: 1. No cervical spine fracture or traumatic malalignment. 2. Multilevel spondylotic changes. Electronically authenticated by: MARISELA MUNOZ Date: 03/09/2024 02:56
--- NOTE | 2024-03-09 01:16 | CT_ITS ---
[address] [address] Patient Name: SLY COY MRN: [id number] date: 1955 Sex: F Assigned Patient Location: ER Current Patient Location: ER Accession/Order Number: [id number] Exam Date: 03/09/2024 02:20 Report Date: 03/09/2024 02:49 At the request of: MIKHAIL GRANT Procedure: CT facial bones wo con EXAM: CT facial bones wo con CLINICAL INDICATION: injury COMPARISON: None TECHNIQUE: Multiple unenhanced axial CT images were obtained of the facial bones in soft tissue and bone windows. Coronal, axial, and sagittal reformatted images were also provided in soft tissue and bone windows and submitted for interpretation. Dose reduction techniques were achieved by using automated exposure control and/or adjustment of mA and/or kV according to patient size and/or use of iterative reconstruction technique. FINDINGS: Soft Tissues: No soft tissue edema or hematoma. Osseous Orbits: No fracture, subluxation, or dislocation. Lamina Papyracea: Intact. Paranasal Sinuses: Clear. Nasal Septum: Intact. Nasal Bones: Well-corticated likely old bilateral nasal bone fractures. Maxilla: Intact. Few periapical lucencies suggest periodontal disease. Mandible: Intact. Few periapical lucency suggest periodontal disease. Temporal Bones: Intact. Mastoid air cells are well aerated. Middle ear cavities are grossly clear. Temporomandibular Joints: No subluxation or dislocation bilaterally. Globes: Intact. Intraconal Space Contents: Orbital fat and ophthalmic arteries are unremarkable. Extraconal Space Contents: Fat is clean and symmetric. CT/CT facial bones wo con IMPRESSION: Well-corticated likely old bilateral nasal bone fractures without adjacent soft tissue edema. No other facial bone fracture. Electronically authenticated by: MARISELA MUNOZ Date: 03/09/2024 02:49
--- NOTE | 2024-03-09 01:16 | CT_ITS ---
[address] [address] Patient Name: SLY COY MRN: [id number] date: 1955 Sex: F Assigned Patient Location: ER Current Patient Location: ER Accession/Order Number: [id number] Exam Date: 03/09/2024 02:20 Report Date: 03/09/2024 02:45 At the request of: MIKHAIL GRANT Procedure: CT head/brain wo con EXAM: CT head/brain wo con CLINICAL INDICATION: injury COMPARISON: CT head 01/10/2019. TECHNIQUE: Axial CT images of the brain were obtained without contrast. Coronal and sagittal reformats were obtained. Dose reduction techniques were achieved by using automated exposure control and/or adjustment of mA and/or kV according to patient size and/or use of iterative reconstruction technique. FINDINGS: No intracranial hemorrhage, extra-axial fluid collection, hydrocephalus, midline shift, or acute large vessel territory infarction. No other mass effect. Patent basal cisterns. Trace periventricular and subcortical hypoattenuation is likely on the basis of chronic microvascular angiopathic changes. Mild symmetric global volume loss without lobar predominance. Commensurate ventricular system caliber prominence. No calvarial fracture. Normal soft tissues. Paranasal sinuses and mastoid air cells are well-aerated. CT/CT head/brain wo con IMPRESSION: No acute intracranial process. Electronically authenticated by: MARISELA MUNOZ Date: 03/09/2024 02:45
--- NOTE | 2024-03-09 01:16 | ED.GENADUL1 ---
HPI HPI - General Adult General Chief complaint: Headache Stated complaint: chest pain Time Seen by Provider: 03/09/24 01:11 Source: patient Mode of arrival: walk-in Limitations: no limitations History of Present Illness HPI narrative: patient states she was trying to help someone to the car and the person tripped and fell onto her. she fell striking the left side of her face/head. Has a headache and neck pain. Denies extremity numbness or weakness. No rib pain or abdominal pain. Past history of CAD . Has a stent in place and takes Plavix Related Data Home Medications ?Medication ?Instructions ?Recorded ?Confirmed citalopram 20 mg tablet 20 mg PO DAILY 01/18/23 03/09/24 isosorbide mononitrate 30 mg 30 mg PO DAILY 01/18/23 03/09/24 tablet,extended release 24 hr lisinopril 40 mg tablet 40 mg PO DAILY 01/18/23 03/09/24 omeprazole 40 mg capsule,delayed 40 mg PO DAILY 01/18/23 03/09/24 release rosuvastatin 20 mg tablet 20 mg PO DAILY 01/18/23 03/09/24 aspirin 81 mg tablet,delayed 81 mg PO DAILY 02/02/23 03/09/24 release (Adult Low Dose Aspirin) clopidogrel 75 mg tablet 75 mg PO DAILY 02/02/23 03/09/24 alendronate 70 mg tablet 70 mg PO .weekly 03/09/24 03/09/24 cholecalciferol (vitamin D3) 25 1,000 unit PO DAILY 03/09/24 03/09/24 mcg (1,000 unit) capsule famotidine 40 mg tablet 40 mg PO DAILY 03/09/24 03/09/24 Previous Rx's ?Medication ?Instructions ?Recorded oxybutynin chloride 5 mg tablet 5 mg PO BID PRN bladder spasms, 05/24/23 stent pain #60 tabs tamsulosin 0.4 mg capsule 0.4 mg PO QPM Stent pain, stone 05/24/23 passage #30 caps sulfamethoxazole 800 1 tab PO BID Start morning of 07/12/23 mg-trimethoprim 160 mg tablet stent removal next week #2 tabs (Bactrim DS) ondansetron 4 mg disintegrating 4 mg PO Q8H PRN nausea and 11/22/23 tablet vomiting #10 tabs Allergies Allergy/AdvReac Type Severity Reaction Status Date / Time No Known Drug Allergies Allergy Verified 03/09/24 00:36 Opioid HPI Opioid Management Most Recent Opioid Data: Last Pain Scale 0 11/22/23 13:27 Review of Systems ROS Status of ROS 10 or more systems reviewed and unremarkable except as noted in history and below [facility] Medical History (Updated 03/09/24 @ 03:04 by Iam Loving MD) Anemia ?D64.9 - Anemia, unspecified (ICD-10) Migraine ?G43.909 - Migraine, unspecified, not intractable, without status migrainosus (ICD-10) Kidney stones ?N20.0 - Calculus of kidney (ICD-10) Postoperative nausea and vomiting ?R11.2 - Nausea with vomiting, unspecified (ICD-10) ?Z98.890 - Other specified postprocedural states (ICD-10) Anxiety ?F41.9 - Anxiety disorder, unspecified (ICD-10) Acid reflux ?K21.9 - Gastro-esophageal reflux disease without esophagitis (ICD-10) Hyperlipidemia ?E78.5 - Hyperlipidemia, unspecified (ICD-10) Hypertension ?I10 - Essential (primary) hypertension (ICD-10) Coronary artery disease ?I25.10 - Atherosclerotic heart disease of [place] coronary artery without angina pectoris (ICD-10) Hx of renal calculi ?Z87.442 - Personal history of urinary calculi (ICD-10) Surgical History (Updated 07/06/23 @ 13:27 by Maria Elena Arciniega NP) H/O cystoscopy (05/24/23) ?Z98.890 - Other specified postprocedural states (ICD-10) History of ovarian cystectomy ?Z98.890 - Other specified postprocedural states (ICD-10) ?Z87.42 - Personal history of other diseases of the female genital tract (ICD-10) History of endometrial ablation ?Z98.890 - Other specified postprocedural states (ICD-10) History of tubal ligation ?Z98.51 - Tubal ligation status (ICD-10) History of esophagogastroduodenoscopy (EGD) ?Z98.890 - Other specified postprocedural states (ICD-10) History of colonoscopy ?Z98.890 - Other specified postprocedural states (ICD-10) History of cystoscopy ?Z98.890 - Other specified postprocedural states (ICD-10) History of lithotripsy ?Z98.890 - Other specified postprocedural states (ICD-10) Hx of heart artery stent ?Z95.5 - Presence of coronary angioplasty implant and graft (ICD-10) Hx of hysterectomy ?Z90.710 - Acquired absence of both cervix and uterus (ICD-10) Family History (Updated 07/06/23 @ 12:51 by Maria Elena rAciniega NP) Other Family history of breast cancer Family history of hypertension Family history of myocardial infarction Social History (Updated 07/12/23 @ 11:38 by Kerri Francisco) Within the past year, how often did you have a drink containing alcohol: monthly or less Smoking status: Never smoker Non-prescribed substance use: cannabis (any form) Non-prescribed substance use details: LAST WEEK Previous occupational history: [employer]CHOOL [employer] Highest level of school completed/degree received: high school graduate Exam Constitutional Vital Signs, click to edit/add: Last Vital Signs Temp 98.4 F 03/09/24 00:30 Pulse 77 03/09/24 00:30 Resp 16 03/09/24 00:30 BP 123/65 03/09/24 00:30 Pulse Ox 97 03/09/24 00:30 O2 Del Method Room Air 03/09/24 00:30 Common normals: no apparent distress, average body habitus, oriented x3, no limitations, healthy appearing, alert and well nourished Eye Common normals: PERRL and EOMs intact bilaterally Neck & C-Spine Other: C-spine tenderness Chest Common normals: inspection of chest normal and palpation of chest normal Respiratory Common normals: normal respiratory effort, no retractions, no use of accessory muscles and clear to auscultation bilaterally Cardio Common normals: regular rate, regular rhythm, S1 normal heart sound and S2 normal heart sound GI Common normals: Normal to inspection, nondistended, normoactive bowel sounds present, soft to palpation and non-tender Extremity Common normals: normal to inspection and full ROM Neuro Common normals: oriented x3, CN's II-XII intact bilaterally, moves all extremities and no focal motor deficits Psych Appearance: grossly normal Course Vital Signs Vital signs: Vital Signs Temperature 98.4 F 03/09/24 00:30 Pulse Rate 77 03/09/24 00:30 Respiratory Rate 16 03/09/24 00:30 Blood Pressure 123/65 03/09/24 00:30 Pulse Oximetry 97 03/09/24 00:30 Oxygen Delivery Method Room Air 03/09/24 00:30 Temperature 98.4 F 03/09/24 00:30 Pulse Rate 77 03/09/24 00:30 Respiratory Rate 16 03/09/24 00:30 Blood Pressure 123/65 03/09/24 00:30 Pulse Oximetry 97 03/09/24 00:30 Oxygen Delivery Method Room Air 03/09/24 00:30 Medical Decision Making MDM Narrative Medical decision making narrative: patient fell striking her head. No obvious signs of head injury. CTs neg. Patient advised of working diagnosis of minor head injury and patient discharged home Discharge Plan Discharge Stand Alone Forms: Work/School Release, Portal Instructions Chief Complaint: Headache Clinical Impression: Head injury Patient Disposition: Home, Self-Care Prescriptions / Home Meds: No Action clopidogrel 75 mg tablet 75 mg PO DAILY aspirin [Adult Low Dose Aspirin] 81 mg tablet,delayed release (DR/EC) 81 mg PO DAILY tamsulosin 0.4 mg capsule 0.4 mg PO QPM Qty: 30 1RF oxybutynin chloride 5 mg tablet 5 mg PO BID PRN (Reason: bladder spasms, stent pain) Qty: 60 1RF Hold Instructions: Doctor's Order ondansetron 4 mg tablet,disintegrating 4 mg PO Q8H PRN (Reason: nausea and vomiting) Qty: 10 0RF isosorbide mononitrate 30 mg tablet extended release 24 hr 30 mg PO DAILY omeprazole 40 mg capsule,delayed release(DR/EC) 40 mg PO DAILY citalopram 20 mg tablet 20 mg PO DAILY lisinopril 40 mg tablet 40 mg PO DAILY rosuvastatin 20 mg tablet 20 mg PO DAILY sulfamethoxazole-trimethoprim [Bactrim DS] 800-160 mg tablet 1 tab PO BID Qty: 2 0RF alendronate 70 mg tablet 70 mg PO .weekly Rx Instructions: Monday cholecalciferol (vitamin D3) 25 mcg (1,000 unit) capsule 1,000 unit PO DAILY famotidine 40 mg tablet 40 mg PO DAILY Rx Instructions: HS Print Language: [place] Instructions: Head Injury (ED) Additional Instructions: use tylenol for headache Referrals: NADIRA SUBRAMANIAN [Primary Care Provider] - 1 week
--- NOTE | 2024-03-09 03:30 | PC.NURSE ---
Pt provided discharge instructions and assisted to personal vehicle for departure from ER.
== END 2024-03-09 03:25 | disposition home or self-care (01) ==
PROVIDERS: Emergency Provider Internal Medicine
DX: S09.90XA Unspecified injury of head, initial encounter (principal); I25.10 Atherosclerotic heart disease of native coronary artery without angina pectoris; Z95.5 Presence of coronary angioplasty implant and graft; Z79.02 Long term (current) use of antithrombotics/antiplatelets; W03.XXXA Other fall on same level due to collision with another person, initial encounter; M54.2 Cervicalgia
CPT/HCPCS: 70450; 70486; 72125; 93005; 99284

== ENCOUNTER 2024-04-30 10:01 | Outpatient (OUT) | payer MEDICARE, SELFPAY ==
--- NOTE | 2024-04-30 10:04 | US_ITS ---
The [address] [address] Patient Name: SLY COY MRN: [id number] date: 1955 Sex: F Assigned Patient Location: US Current Patient Location: Accession/Order Number: [id number] Exam Date: 04/30/2024 10:06 Report Date: 05/01/2024 09:01 At the request of: LIYAH DENNY Procedure: US renal BI EXAMINATION: US renal BI HISTORY: Kidney Stones COMPARISON: Ultrasound renal bilateral 08/08/2023 TECHNIQUE: Ultrasound examination was performed of the kidneys and urinary bladder. FINDINGS: RIGHT KIDNEY: Stable 2.2 cm complex cyst within superior pole. Nonobstructing 0.7 cm stone within inferior pole. Normal parenchymal echogenicity. No significant cortical thinning. Color Doppler demonstrates blood flow within the kidney. Kidney: 10.7 x 4.6 x 4.3 cm LEFT KIDNEY: 1.5 cm cyst within inferior pole favoring benign etiology. Persistent 1.2 cm echogenic structure within mid body and suspected represent a large stone. Normal parenchymal echogenicity. Minimal cortical thinning, 0.9 cm in thickness. Color Doppler demonstrates blood flow within the kidney. Kidney: 10.2 x 4.9 x 4.5 cm BLADDER: No visible wall thickening, mass, or calculi. US/US renal BI IMPRESSION: 1. Bilateral nonobstructing nephrolithiasis. 2. Stable slightly complex right renal cyst. Consider follow-up imaging in one year to document stability. Electronically authenticated by: KATEHRINE LITTLE Date: 05/01/2024 09:01
--- OUTSIDE RECORDS SUMMARY | 2024-04-30 10:14 | XMS_ITS | CCD ---
Demographics Address [address] [place] [address] Mobile Phone Preferred Language en Marital Status Single Church Affiliation Unknown Race White Ethnic Group Not or Lati no Author Organization [facility]iniSyak Care Team Providers Care Sock Boarder Name Role Phone Davidlim Nadira MOSS CNP Primary Care Provider JUVENAL HARRELL Referring Unavailable ANGLIM, NADIRA Primary Care Unavailable [facility] Care Unava ilable MIKHAIL GRANT Consulting Unavailable JUANITA MIKHAIL Admitting Unavailable MIKHAIL GRANT Attending Unavailable ANGLIM, NADIRA Admitting Unavailable ANGLIM, NADIRA Attending Unavailable [facility] Primary Care Unava ilable MARILYNN, NADIRA Consulting Unavailable Himanshu Borjas Unavailable JAYA SIMON Admitting Unavailable JAYA SIMON Attending Unavailable JAYA SIMON Referring Unavailable ANGLIM, NADIRA Primary Care Unavailable ANGLIM, NADIRA Primary Care Physician Davidlim Nadira LALA Primary Care Provider Fernando Castellon Admitting Unavailable Fernando Castellon Attending Unavailable Anglim, Nadira Primary Care Unavailable Himanshu Borjas Admitting Unavailable Himanshu Borjas Attending Unavailable Anglim, Nadira Primary Care Unavailable RISA Martínez Primary Care Provider [phone] RISA Borjas Attending Provider NADIRA MARTÍNEZ A Referring Unavailable ANGLIM, NADIRA A Primary Care Unavailable RISA Martínez Primary Care Provider RISA Borjas Attending Provider Elizabeth Lott Attending Unavailable [place] Toney Attending Unavailable Elizabeth Lott Attending Unavailable MARILYNN, NADIRA Referring Unavailable Elizabeth Lott Attending Unavailable Elizabeth Lott Admitting Unavailable Elizabeth Lott Attending Unavailable Elizabeth Lott Referring Unavailable [place] Toney Attending Unavailable Elizabeth Lott Attending Unavailable Allergies Allergy Classification Reported Allergen(s) Allergy Type Date of Onset Reaction(s) Facility (1 source) No Known Medication Allergies; Translations: [No Known Medication Allergies] Propensity to adverse reactions (disorder) [facility] Repository Medications Current Medications Medication Drug [...] 01/23/2023 Active citalopram 20 mg oral tablet (12 sources) Serotonin Reuptake Inhibitor Start: 12-20-2022 take 20 mg by mouth once daily Citalopram Active 20 MG PO Daily December 20, 2022 12:00am clopidogrel 75 mg oral tablet (11 sources) P2Y12 Platelet Inhibitor Start: 01-23-2023 take 1 tablet by mouth once daily Clopidogrel (Plavix) 75 mg tablet Active 75 MG PO Daily October 26, 2023 12:00am Plavix Active estradiol 0.1 mg/ml vaginal cream [...] Status: Ordered famotidine 40 mg oral tablet (8 sources) Histamine-2 Receptor Antagonist Start: 01-02-2024 take [...] 07/06/2023 Discontinued lisinopril 40 mg oral tablet (12 sources) Angiotensin Converting Enzyme Inhibitor Start: 05-10-2023 [...] hr tablet Indications: Coronary artery disease of [place] artery of [place] heart with stable angina pectoris (CMS-HCC) , Presence of drug-eluting stent in right coronary artery , Hypertensive heart disease without heart failure Take 1 tablet (25 mg total) by mouth nightly. 90 tablet 3 02/10/2023 Active omeprazole 40 mg delayed release oral capsule (16 sources) Proton Pump Inhibitor Start: 01-02-2024 take 40 mg by mouth twice daily Omeprazole Active 40 MG PO Twice daily 60 January 02, 2024 2:11pm Start: 12-20-2022 End: 12-20-2022 take 20 mg by mouth once daily Omeprazole Discontinued 20 MG PO Daily December 20, 2022 12:00am December 20, 2022 1:54pm Start: 12-20-2022 End: 01-02-2024 take 40 mg by mouth once daily Omeprazole Discontinued 40 MG PO Daily December 20, 2022 12:00am January 02, 2024 2:15pm take 1 capsule by [facility] twice daily Omeprazole 20 MG 1 capsule [...] Active rosuvastatin calcium 20 mg oral tablet (12 sources) HMG-CoA Reductase Inhibitor Start: 10-26-2023 Rosuvastatin [...] Problem Date Documented Date Episodic/Chronic Abdominal hernia (14 sources) Diaphragmatic hernia without obstruction or gangrene; Translations: [Hiatal hernia] Onset: 11-14-2023 Episodic Abdominal pain (6 sources) Abdominal pain; Translations: [Unspecified abdominal pain] 01-02-2024 Episodic Calculus of urinary tract (13 sources) Personal history of urinary calculi; Translations: [History of calculus of kidney] Onset: 07-29-2016 Episodic Coronary atherosclerosis and other heart disease (5 sources) Coronary arteriosclerosis; Translations: [Atherosclerotic heart disease of [place] coronary artery with other forms of angina pectoris] Onset: 02-10-2023 05-10-2023 Chronic Disorders of lipid metabolism (6 sources) Pure hypercholesterolemia, unspecified; Translations: [Hyperlipidemia, unspecified] Onset: 12-02-2021 05-10-2023 Chronic E Codes: Cut/pierceb (1 source) Contact with knife, initial encounter; Translations: [CONTACT WITH KNIFE INITIAL ENC] Onset: 10-04-2022 Episodic Esophageal disorders (20 sources) Gastroesophageal reflux disease; Translations: [Gastro-esophageal reflux [...] [DEPRESSION UNSPECIFIED] Onset: 10-04-2022 Nausea and vomiting (6 sources) Nausea; Translations: [Nausea] 01-02-2024 Episodic Open wounds of extremities (4 sources) Laceration without foreign body of right index finger without damage to nail, initial encounter; Translations: [LAC W/O FB RT IF W/O DMG NAIL INIT] Onset: 09-30-2022 Episodic Other aftercare (1 source) Other retirement (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 therapy; Translations: [OTH ALF CURRENT DRUG THERAPY] Onset: 10-04-2022 Episodic Other lower respiratory disease (5 sources) Cough; Translations: [Cough] 10-26-2023 Episodic Other [...] of digestive organs Episodic Residual codes; unclassified (5 sources) History of cardiac catheterization; Translations: [Other specified postprocedural states] 10-26-2023 Episodic Residual codes; unclassified (5 sources) Past history of procedure; Translations: [Other [...] on 01-16-2024 Creatinine [Mass/Vol] 0.84 mg/dL 0.60-1.20 [facility] No Panel InformationOrdered By: Himanshu Borjas on 01-16-2024 Estimated GFR (CKD-EPI) > 60.0 mL/Min [facility] Creatinine Clearance (Chem N/A [facility] Urea nitrogen [Mass/volume] in Serum or PlasmaOrdered By: Himanshu Borjas on 01-16-2024 Urea nitrogen [Mass/Vol] 15 mg/dL 01-31 [facility] MAMM SCREENING BILATERAL W C critical care rn 12-11-2023 MAMM SCREENING BILATERAL W CAD MAMM [...] PM 1 b [facility] [place] [facility]23 [place] [facility] [place] [address] Fluoroscopy Report Signed Patient: Bella Coy MR#: [id number] : 1955 Acct:[id number] Age/Sex: 68 / F ADM Date: 11/14/23 Loc: XD Room: Type: [facility] Attending Dr: Himanshu Borjas APRN Copies to: Himanshu Borjas APRN Ordering Provider: Himanshu M Scovanner, PIT SUPERVISOR Date of Service: 11/14/23 FL/FL esophagus: R05.9 [...] Arnoldo Souza M.D.11/14/2023 2:00 PM Dictation Location: [place] [address] Transcribed By: [facility] 11/14/23 1400 Dictated By: Arnoldo Souza II, MD 11/14/23 1358 Signed By: 11/14/23 1400 Normal [facility] RAD - Ultrasound Reporton RAD - Ultrasound Report [id number] #1.00TIFF Normal [facility] Progress Note-Physicianon Operative Report Patient: BELLA COY Age: 67 years Sex: Female : 1955 Associated Diagnoses: None Author: Elizabeth Lott MD Procedure Operative Information Details: Date/ Time: 07/24/2023 09:57:00. Pre-Op Dx: Encounter for removal of ureteral stent (XLI95-JA Z46.6, Discharge, Medical), Kidney stones (HFF87-YT N20.0, Discharge, Medical), Foreign Body in Bladder [...] Obtain renal ultrasound in 6 weeks at [facility] to ensure no silent obstruction develops. [...] continue with dietary modifications. Op Note Normal [facility] Comment on above: Result Comment: Elec tronically Signed By: Oren BOB, Elizabeth Ward.br\Date and Time Signed: 07/29/23 15:57 EST Consent for Procedure/Surger yon 07-24-2023 Consent for Procedure/Surgery [id number] 1#1.00TIFF Normal [facility] Consent for Treatmenton 07-10 Consent for Treatment [id number] #1.00TIFF Normal [facility] Inpatient Patient Summaryon 07-24-2023 Inpatient Patient Summary [address], [place] [address] Clinical Summary Person Information Name: BELLA COY Age: 67 Years : 1955 Sex: Female PCP: NADIRA MARTÍNEZ CNP Marital Status: Race: White Ethnicity: Non- or Language: St [place] Visit Id: Visit Reason: KIDNEY STONE Speciality: Acuity: Enc Type: Outpatient Med Service: Surgery Arrival: 07/24/2023 08:39:36 Discharge: Dispo Type: Address: [address] [phone] Provider Notes: Diagnosis: Encounter for removal of [...] Lott MD Follow up: With: Address: When: Elizabeth Lott [address], [place] [phone] Business (1) [facility] [address], [address] [phone] Business (1) Comments: Obtain renal US in 6 weeks at [facility]. Office to call with results. If no hydronephrosis, office will call to schedule follow up in 6 months with KUB and renal US Patient Education Information: EU - Cystoscopy with Stent Removal Discharge Instructions (CUSTOM); Dietary Guidelines to Help Prevent Kidney Stones Normal [facility] IntraOperative Documentson 0 07-24-2023 IntraOperative Documents [id number] 8#1.00TIFF Normal [facility] Main [place] Intraoperative Recor don 07-24-2023 Main OR Intraoperative Record IntraOp Document Type FTURO Summary Primary Physician: Elizabeth Lott MD Finalized Date/Time: 07/24/23 09:56:31 Pt. Name: BELLA COY Kevyn CoatesB./Sex: 1955 Female Med Rec #: [id number] Physician: Elizabeth Lott MD Financial #: [id number] Pt. Type: O Room/Bed: / Admit/Disch: 07/24/23 08:39:36 - Institution: Case Times FTURO Entry 1 Patient Times In Room 07/24/23 09:33:00 Out Room 07/24/23 09:57:00 Procedure Times Start 07/24/23 09:51:00 Stop 07/24/23 09:52:00 Anesthesia Times Last Modified By: Timmy ALOMNTE, Liza Gibbs 07/24/23 09:53:29 Case Attendance FTURO Entry 1 Entry 2 Entry 3 Case Attendee Oren BOB, Elizabeth Warner RN, Nadira Mckeon Role Performed Surgeon - Primary Range Master - Primary Scrub - Primary Time In 07/24/23 09:33:00 07/24/23 09:33:00 07/24/23 09:33:00 Time Out 07/24/23 09:57:00 07/24/23 09:57:00 07/24/23 09:57:00 Procedure CYSTOSCOPY LOCAL WITH CYSTOSCOPY LOCAL WITH CYSTOSCOPY LOCAL WITH STENT REMOVAL(Left) STENT REMOVAL(Left) STENT REMOVAL(Left) Comments Last Modified By: Timmy ALMONTE, Liza Warner RN, Liza Warner RN, Liza Gibbs 07/24/23 Aaliyah P 07/24/23 Aaliyah Gibbs 07/24/23 09:53:30 09:53:30 09:53:30 [...] STONE Outcomes Met? Yes Last Modified By: Timmy ALMONTE, Liza Gibbs 07/24/23 09:52:14 Post-Care Text: The patient is [...] Position Verified Availability Equipment, Medication Time Out Oren BOB, Elizabeth Brown, Verified (If Participants Timmy ALMONTE, Liza Applicable) Aaliyah Gibbs, Nadira Banks Time Out Complete 07/24/23 09:50:00 Allergies Reviewed? [...] By: Liza Warner RN 07/24/23 09:56 Normal [facility] Main OR Preoperative Recordo n 07-24-2023 Main OR Preoperative Record Holding Area Document Type FTURO Summary Primary Physician: Elizabeth Lott MD Finalized Date/Time: 07/24/23 08:57:43 Pt. Name: BELLA COY/Sex: 1955 Female Med Rec #: [id number] Physician: Elizabeth Lott MD Financial #: [id number] Pt. Type: O Room/Bed: / Admit/Disch: 07/24/23 08:39:36 - Institution: Case Times Holding FTURO Pre-Care Text: Verifies consent for planned procedure, identifies individual values and wishes concerning care, includes family members in perioperative teaching Secures patient's records' belongings, and valuables, maintains patient's dignity and privacy, and maintains patient confidentiality Entry 1 In Holding 07/24/23 08:53:00 Outcomes Met? Yes Last Modified By: KarisJOSIAH saldivar RN, Ruthann 07/24/23 08:53:31 Post-Care Text: The patient participates [...] JOSIAH Dyson RN, Ruthann 07/24/23 08:57 Normal [facility] Outpatient Surgery Discharge Instructionon 07-24-2023 Outpatient Surgery Discharge Instruction [address] [address] Patient Discharge Instructions PERSON INFORMATION [...] Follow up: With: Address: When: Elizabeth Lott [address] [place] [phone] Business (1) [address] [address] [phone] Business (1) Comments: Obtain renal US in 6 weeks at [facility]. Office to call with results. If no [...] vegetables at (more content not included)... Normal [facility] Progress Note-Physicianon Progress Note-Physician Patient: BELLA COY Age: 67 years Sex: Female : 1955 Associated Diagnoses: None Author: Oren OBB, Elizabeth Brown Procedure Operative Information Details: Date/ Time: 07/24/2023 09:57:00. Pre-Op Dx: Encounter for removal of ureteral stent (WRS12-JG Z46.6, Discharge, Medical), Kidney stones (DKO16-VL N20.0, Discharge, Medical), Foreign Body in Bladder [...] Obtain renal ultrasound in 6 weeks at [facility] to ensure no silent obstruction develops. [...] this time. Will continue with dietary modifications. [facility] Comment on above: Result Comment: Elec tronically Signed By: Oren BOB, Elizabeth Brown\.br\Date and Time Signed: 07/24/23 10:00 EST Lab Reportson 07-21-2023 Lab Reports [id number]# 1.00TIFF [facility] Operative Reporton Operative Report [id number] #1.00TIFF [facility] Lab Reportson 07-07-2023 Lab Reports [id number] #1.00TIFF [facility] RAD - MISCon 07-06-2023 RAD - MIS [id number] #1.00TIFF Normal [facility] Insurance Correspondenceon 1 09-05-2022 Insurance Correspondence [id number] 08#1.00TIFF Normal [facility] RAD - MISCon 05-30-2023 RAD - MIS [id number] #1.00TIFF Normal [facility] Operative Reporton Operative Report [id number]# 1.00TIFF Normal [facility] RAD - MISCon 05-24-2023 RAD - MIS [id number] #1.00TIFF Normal [facility] Consultation Noteon 05-21-20 Consultation Note [id number]# 1.00TIFF Normal [facility] Lab Reportson 05-18-2023 Lab Reports [id number] #1.00TIFF Normal [facility] Lab Reports [id number] #1.00TIFF Normal [facility] Lab Reports [id number] #1.00TIFF Normal [facility] Lab Reports [id number] #1.00TIFF Normal [facility] Consultation Noteon 05-15-20 Consultation Note [id number] #1.00TIFF Normal [facility] Formson 05-11-2023 Forms [id number] #1.00TIFF Normal [facility] Ambulatory Visit Summaryon 1 07-10-2022 Ambulatory Visit Summary BELLA COY :1955 Visit Date:05/10/2023 Ambulatory Visit Instructions Your Diagnosis Kidney stones Vaginal atrophy UTI symptoms Personal history of kidney stones Female bladder prolapse Tests Performed Urnls Dip Stick Auto w/o Microscopy POC 41539 Your Care Team Attending Physician - Elizabeth [...] then 2x/ week for maintainence Pickup at [facility] Unchanged alprazolam By Mouth Contact prescribing physician [...] Pharmacy Information [facility]: [address] [place], [place] [phone] Test Results Urnls Dip Stick Auto w/o Microscopy POC 36956 (05/10/2023) Bilirubin Urine Dipstick - Negative Blood Urine Dipstick - 2+ Moderate Glucose Urine Dipstick - Negative Ketones Urine Dipstick - Negative Leukocytes Urine Dipstick - Negative Nitrite Urine Dipstick - Negative Protein Urine Dipstick - Negative Specific [place] Urine Dipstick - 1.025 Urine Appearance Urine [...] for you. S (more content not included)... [facility] Formson 05-10-2023 Forms [id number] #1.00TIFF [facility] Insurance Correspondenceon 1 07-10-2022 Insurance Correspondence [id number] 3#1.00TIFF [facility] Patient Educationon 05-10-20 Patient Education Nephrology Dietary [...] Spinach (cooked), rhubarb, beets, sweet potatoes, and Romanian chard. ? Peanuts. ? Potato chips, gabonese fries, and baked potatoes with skin on. ? Nuts and nut products. ? Chocolate. ? If you regularly take a diuretic medicine, make sure to eat at least 1 or 2 servings of fruits or vegetables that are high in potassium each day. These include: ? Avocado. ? Banana. ? [place], prune, carrot, or tomato juice. ? Baked [...] fish oil, or vitamin B6. ? Take jozd-vij-lyryigr and prescription medicines only as told by your health care provider. These include supplements. What foods should I limit? Limit your in (more content not included)... Normal [facility] 05-10-2023 Screens [id number] #1.00TIFF Normal [facility] Urology Office/Clinic Noteon 05-10-2023 Urology Office/Clinic Note Chief Complaint kidney stones HPI Staff Pt is a new pt. Last seen in our office 02/23/09 by PRW due to Kidney Stones. S/P Lt ESWL 03/05/09. recently patient has been seeing Dr De Jesus in [place] but his practice no longer accepts pt's [...] ESWL, stag (more content not included)... Normal [facility] Comment on above: Result Comment: Elec tronically Signed By: Oren BOB, Elizabeth Brown\.br\Date and Time Signed: 05/10/23 12:16 EDT\.br\Electronically Co-Signed By: Shahana Mazariegos\.br\Date and Time Co-Signed: 05/10/23 10:28 EDT Basic Metabolic Profon 01-23 Anion gap [Moles/Vol] 10 mmol/L Normal 9-17 [facility] Comment on above: Performed By: #### B MP, CBC #### [facility] [address] [facility] [place] [address] Geospatial Information Technologist: Brooks Almazan MD BUN/CRE Ratio 30 High 9-20 [facility] Comment on above: Performed By: #### B MP, CBC #### [facility] [address] [facility] [place] [address] Geospatial Information Technologist: Brooks Almazan MD Calcium [Mass/Vol] 8.9 mg/dL Normal 8.6-10.4 [facility] Comment on above: Performed By: #### B MP, CBC #### [facility] [address] [facility] [place] [address] Geospatial Information Technologist: Brooks Almazan MD Chloride [Moles/Vol] 104 mmol/L Normal 98-107 [facility] Comment on above: Performed By: #### B MP, CBC #### [facility] [address] [place] [address] Geospatial Information Technologist: Brooks Almazan MD CO2 [Moles/Vol] 27 mmol/L Normal 20-31 [facility] Comment on above: Performed By: #### B MP, CBC #### [facility] [address] [place] [address] Geospatial Information Technologist: Brooks Almazan MD Creatinine [Mass/Vol] 0.5 mg/dL Normal 0.5-0.9 [facility] Comment on above: Performed By: #### B MP, CBC #### [facility] [address] [facility] [place] [address] Geospatial Information Technologist: Brooks Almazan MD GFR/1.73 sq M.predicted among non-blacks MDRD (S/P/Bld) [Vol rate/Area] mL/min/{1.73_m2} Normal >60 [facility] Comment on above: Result Comment: [...] Performed By: #### B MP, CBC #### [facility] [address] [facility] [place] [address] Geospatial Information Technologist: Brooks Almazan MD Glucose [Mass/Vol] 97 mg/dL Normal 70-99 [facility] Comment on above: Performed By: #### B MP, CBC #### [facility] [address] [place] [address] Geospatial Information Technologist: Brooks Almazan MD Potassium [Moles/Vol] 4.8 mmol/L Normal 3.7-5.3 [facility] Comment on above: Result Comment: SPEC IMEN SLIGHTLY HEMOLYZED, RESULTS MAY BE ADVERSELY AFFECTED. Performed By: #### B MP, CBC #### [facility] [address] [place] [address] Geospatial Information Technologist: Brooks Almazan MD Sodium [Moles/Vol] 141 mmol/L Normal 135-144 [facility] Comment on above: Performed By: #### B MP, CBC #### [facility] [address] [place] [address] Geospatial Information Technologist: Brooks Almazan MD Urea nitrogen [Mass/Vol] 15 mg/dL Normal 8-23 [facility] Comment on above: Performed By: #### B MP, CBC #### [facility] [address] [place] [address] Geospatial Information Technologist: Brooks Almazan MD CBCon 01-23-2023 Erythrocyte distribution width (RBC) [Ratio] 12.4 % Normal 11.8-14.4 [facility] Comment on above: Performed By: #### B MP, CBC #### [facility] [place] [address] Geospatial Information Technologist: Brooks Almazan MD Hematocrit (Bld) [Volume fraction] 40.3 % Normal 36.3-47.1 [facility] Comment on above: Performed By: #### B MP, CBC #### [facility] [address] [place] [address] Geospatial Information Technologist: Brooks Almazan MD Hemoglobin (Bld) [Mass/Vol] 13.1 g/dL Normal 11.9-15.1 [facility] Comment on above: Performed By: #### B MP, CBC #### [facility] [address] [place] [address] Geospatial Information Technologist: Brooks Almazan MD MCH (RBC) [Entitic mass] 30.0 pg Normal 25.2-33.5 [facility] Comment on above: Performed By: #### B MP, CBC #### [facility] [address] [facility] [place] [address] Geospatial Information Technologist: Brooks Almazan MD MCHC (RBC) [Mass/Vol] 32.5 g/dL Normal 28.4-34.8 [facility] Comment on above: Performed By: #### B MP, CBC #### [facility] [address] [place] [address] Geospatial Information Technologist: Brooks Almazan MD MCV (RBC) [Entitic vol] 92.4 fL Normal 82.6-102.9 M [facility] Comment on above: Performed By: #### B MP, CBC #### [facility] [address] [place] [address] Geospatial Information Technologist: Brooks Almazan MD NRBC Automated 0.0 per 100 WBC Normal 0.0 [facility] Comment on above: Performed By: #### B MP, CBC #### [facility] [address] [place] [address] Geospatial Information Technologist: Brooks Almazan MD Platelet mean volume (Bld) [Entitic vol] 9.3 fL Normal 8.1-13.5 [facility] Comment on above: Performed By: #### B MP, CBC #### [facility] [address] [place] [address] Geospatial Information Technologist: Brooks Almazan MD Platelets (Bld) [#/Vol] 234 10*3/uL Normal 138-453 [facility] Comment on above: Performed By: #### B MP, CBC #### [facility] [address] [facility] [place], [place] [address] Geospatial Information Technologist: Brooks Almazan MD RBC (Bld) [#/Vol] 4.36 10*6/uL Normal 3.95-5.11 [facility] Comment on above: Performed By: #### B MP, CBC #### [facility] [address] [facility] [place] [address] Geospatial Information Technologist: Brooks Almazan MD WBC (Bld) [#/Vol] 7.1 10*3/uL Normal 3.5-11.3 [facility] Comment on above: Performed By: #### B MP, CBC #### [facility] [address] [place] [address]. [place], [place] [id number] Geospatial Information Technologist: Brooks Almazan MD CBC AUTO DIFFon 11-27-2021 BASO # 0.1 103/ul Normal 0.0-0.1 [facility] Comment on above: Performed By: #### C BC #### [facility] [address] [address] [address] Liliam Sanderson Basophils/100 WBC (Bld) 0.7 % Normal 0.2-2.0 [facility] Comment on above: Performed By: #### C BC #### [facility] [address] [place] [address] Dr. Liliam Sanderson EO # 0.2 103/ul Normal 0.0-0.7 [facility] Comment on above: Performed By: #### C BC #### [facility] [address] [address] [address] Liliam Sanderson Eosinophils/100 WBC (Bld) 2.2 % Normal 0.9-7.0 [facility] Comment on above: Performed By: #### C BC #### [facility] [address] [address] [address] Liliam Sanderson Erythrocyte distribution width (RBC) [Ratio] 12.0 % Normal 11.0-15.0 [facility] Comment on above: Performed By: #### C BC #### [facility] [address] [address] [address] Liliam Sanderson Hematocrit (Bld) [Volume fraction] 40.6 % Normal 36.0-48.0 [facility] Comment on above: Performed By: #### C BC #### [facility] [address] [place] [address] Dr. Liliam Sanderson Hemoglobin (Bld) [Mass/Vol] 13.3 g/dL Normal 12.0-16.0 [facility] Comment on above: Performed By: #### C BC #### [facility] [address] [place] [address] Dr. Liliam Sanderson IG # 0.03 10e3/ul Normal 0.00-0.03 [facility] Comment on above: Performed By: #### C BC #### [facility] [address] [place] [address] Dr. Liliam Sanderson IG % 0.3 % Normal 0.0-0.5 [facility] Comment on above: Performed By: #### C BC #### [facility] [address] [place] [address] Dr. Liliam Sanderson LYMPH # 3.2 103/ul Normal 1.2-3.8 [facility] Comment on above: Performed By: #### C BC #### [facility] [address] [place] [address] Dr. Liliam Sanderson Lymphocytes/100 WBC (Bld) 30.7 % Normal 20.5-60.0 [facility] Comment on above: Performed By: #### C BC #### [facility] [address] [place] [address] Dr. Liliam Sanderson MANUAL DIFF REQ NO Normal [facility] Comment on above: Performed By: #### C BC #### [facility] [address] [place] [address] Dr. Liliam Sanderson MCH (RBC) [Entitic mass] 30.2 pg Normal 26.7-34.0 [facility] Comment on above: Performed By: #### C BC #### [facility] [address] [address] [address] Liliam Sanderson MCHC (RBC) [Mass/Vol] 32.8 g/dL Normal 29.9-35.2 [facility] Comment on above: Performed By: #### C BC #### [facility] [address] [address] [address] Liliam Sanderson MCV (RBC) [Entitic vol] 92.1 fL Normal 81.0-99.0 [facility] Comment on above: Performed By: #### C BC #### [facility] [address] [address] [address] Liliam Sanderson MONO # 0.8 103/ul Normal 0.3-0.8 [facility] Comment on above: Performed By: #### C BC #### [facility] [address] [place] [address] Dr. Liliam Sanderson Monocytes/100 WBC (Bld) 7.5 % Normal 1.7-12.0 [facility] Comment on above: Performed By: #### C BC #### [facility] [address] [place] [address] Dr. Liliam Sanderson NEUT # 6.1 103/ul Normal 1.4-6.5 [facility] Comment on above: Performed By: #### C BC #### [facility] [address] [place] [address] Dr. Liliam Sanderson Neutrophils/100 WBC (Bld) 58.6 % Normal 43.0-75.0 [facility] Comment on above: Performed By: #### C BC #### [facility] [address] [place] [address] Dr. Liliam Sanderson Platelet mean volume (Bld) [Entitic vol] 8.8 fL Critically low 9.5-13.5 [facility] Comment on above: Performed By: #### C BC #### [facility] [address] [place] [address] Dr. Liliam Sanderson PLT 264 103/ul Normal 150-450 [facility] Comment on above: Performed By: #### C BC #### [facility] [address] [address] [address] Liliam Sanderson RBC 4.41 106/ul Normal 4.20-5.40 [facility] Comment on above: Performed By: #### C BC #### [facility] [address] [address] [address] Liliam Sanderson WBC 10.4 103/ul Normal 4.0-11.0 [facility] Comment on above: Performed By: #### C BC #### [facility] [address] [address] [address] Liliam Sanderson LIPID PROFILEon 11-27-2021 CHOL-HDL RATIO NORM SEE BELOW Normal [facility] Comment on above: Result Comment: 3.3 - 4.4 LOW RISK 4.4 - 7.1 AVERAGE RISK 7.1 - 11.0 MODERATE RISK >11.0 HIGH RISK Performed By: #### C MP, LIPID #### [facility] [address] [place] [address] Dr. Liliam Sanderson Cholesterol [Mass/Vol] 204 mg/dL Critically high <=200 [facility] Comment on above: Performed By: #### C MP, LIPID #### [facility] [address] [place] [address] Dr. Liliam Sanderson Cholesterol in HDL [Mass/Vol] 46 mg/dL Normal 40-60 [facility] Comment on above: Performed By: #### C MP, LIPID #### [facility] [address] [place] [address] Dr. Liliam Sanderson Cholesterol in LDL [Mass/Vol] 125.4 mg/dL Normal [facility] Comment on above: Performed By: #### C MP, LIPID #### [facility] [address] [place] [address] Dr. Liliam Sanderson Cholesterol.total/Melony sterol in HDL [Mass ratio] 4.4 {ratio} Normal [facility] Comment on above: Performed By: #### C MP, LIPID #### [facility] [address] [place] [address] Dr. Liliam Sanderson HDL NORMAL > or = 60 mg/dl - LOW CARDIOVASCULAR RISK <40 mg/dl - HIGH CARDIOVASCULAR RISK Normal [facility] Comment on above: Performed By: #### C MP, LIPID #### [facility] [address] [address] [address] Liliam Sanderson LDL CALC NORMAL SEE BELOW Normal [facility] Comment on above: Result Comment: <100 mg/dl OPTIMAL 100 - 129 mg/dl NEAR OR ABOVE OPTIMAL 130 - 159 mg/dl BORDERLINE HIGH 160 - 189 mg/dl HIGH >190 mg/dl VERY HIGH Performed By: #### C MP, LIPID #### [facility] [address] [place] [address] Dr. Liliam Sanderson Triglyceride [Mass/Vol] 163 mg/dL Critically high <=150 [facility] Comment on above: Performed By: #### C MP, LIPID #### [facility] [address] [place] [address] Dr. Liliam Sanderson VLDL CALC 32.6 mg/dL Normal [facility] Comment on above: Performed By: #### C MP, LIPID #### [facility] [address] [place] [address] Dr. Liliam Sanderson PROF 14(COMP METB)on 022 Albumin [Mass/Vol] 4.1 g/dL Normal 3.4-5.0 [facility] Comment on above: Performed By: #### C MP, LIPID #### [facility] [address] [place] [address] Dr. Liliam Sanderson Albumin/Globulin [Mass ratio] 1.2 {ratio} Normal [facility] Comment on above: Performed By: #### C MP, LIPID #### [facility] [address] [place] [address] Dr. Liliam Sanderson ALP [Catalytic activity/Vol] 61 U/L Normal 46-116 [facility] Comment on above: Performed By: #### C MP, LIPID #### [facility] [address] [place] [address] Dr. Liliam Sanderson ALT [Catalytic activity/Vol] 20 U/L Normal 14-59 [facility] Comment on above: Performed By: #### C MP, LIPID #### [facility] [address] [address] [address] Liliam Sanderson Anion gap [Moles/Vol] 11.4 mmol/L Normal [facility] Comment on above: Performed By: #### C MP, LIPID #### [facility] [address] [place] [address] Dr. Liliam Sanderson AST [Catalytic activity/Vol] 12 U/L Critically low 15-37 [facility] Comment on above: Performed By: #### C MP, LIPID #### [facility] [address] [place] [address] Dr. Liliam Sanderson Bilirubin [Mass/Vol] 0.5 mg/dL Normal 0.2-1.0 [facility] Comment on above: Performed By: #### C MP, LIPID #### [facility] [address] [place] [address] Dr. Liliam Sanderson Calcium [Mass/Vol] 8.9 mg/dL Normal 8.5-10.1 [facility] Comment on above: Performed By: #### C MP, LIPID #### [facility] [address] [place] [address] Dr. Liliam Sanderson Chloride [Moles/Vol] 102 mmol/L Normal 98-107 [facility] Comment on above: Performed By: #### C MP, LIPID #### [facility] [address] [place] [address] Dr. Liliam Sanderson CO2 [Moles/Vol] 28.3 mmol/L Normal 21.0-32.0 [facility] Comment on above: Performed By: #### C MP, LIPID #### [facility] [address] [place] [address] Dr. Liliam Sanderson Creatinine [Mass/Vol] 0.66 mg/dL Normal 0.55-1.02 [facility] Comment on above: Performed By: #### C MP, LIPID #### [facility] [address] [place] [address] Dr. Liliam Sanderson EGFR-AF LITHUANIAN >60 Normal >=60 [facility] Comment on above: Performed By: #### C MP, LIPID #### [facility] [address] [place] [address] Dr. Liliam Sanderson EGFR-NON AF LITHUANIAN >60 Normal >=60 [facility] Comment on above: Performed By: #### C MP, LIPID #### [facility] [address] [place] [address] Dr. Liliam Sanderson Globulin (S) [Mass/Vol] 3.4 g/dL Normal T [facility] Comment on above: Performed By: #### C MP, LIPID #### [facility] [address] [place] [address] Dr. Liliam Sanderson Glucose [Mass/Vol] 100 mg/dL Normal 74-106 [facility] Comment on above: Performed By: #### C MP, LIPID #### [facility] [address] [place] [address] Dr. Liliam Sanderson Potassium [Moles/Vol] 3.7 mmol/L Normal 3.5-5.1 [facility] Comment on above: Performed By: #### C MP, LIPID #### [facility] [address] [place] [address] Dr. Liliam Sanderson Protein [Mass/Vol] 7.5 g/dL Normal 6.4-8.2 [facility] Comment on above: Performed By: #### C MP, LIPID #### [facility] [address] [place] [address] Dr. Liliam Sanderson Sodium [Moles/Vol] 138 mmol/L Normal 136-145 [facility] Comment on above: Performed By: #### C MP, LIPID #### [facility] [address] [place] [address] Dr. Liliam Sanderson Urea nitrogen [Mass/Vol] 14.0 mg/dL Normal 7.0-18.0 [facility] Comment on above: Performed By: #### C MP, LIPID #### [facility] [address] [place] [address] Dr. Liliam Sanderson Urea nitrogen/Creatinine [Mass ratio] 21.2 mg/mg Normal [facility] Comment on above: Performed By: #### C MP, LIPID #### [facility] [address] [place] [address] Dr. Liliam Sanderson Vital Signs Date Time Vital Sign Value Performing Clinician Facility 03-05-2024 15:04-0400 Body height 152.4 cm [employer]IT SUPERVISORKhushi [employer] Work Phone: [facility] 03-05-2024 15:04-0400 Body mass index (BMI) [Ratio] 24.4 kg/m2 PIT SUPERVISOR Nadira Anglim Work Phone: [facility] 03-05-2024 15:04-0400 Body weight 56.69 kg PIT SUPERVISOR Nadira Anglim Work Phone: [facility] 01-02-2024 14:02-0400 Body height 152.4 cm PIT SUPERVISOR Nadira Anglim Work Phone: [facility] 01-02-2024 14:02-0400 Body mass index (BMI) [Ratio] 25.4 kg/m2 PIT SUPERVISOR Nadira Anglim Work Phone: [facility] 01-02-2024 14:02-0400 Body weight 59 kg PIT SUPERVISORKhushi Parker [employer] Work Phone: [facility] 10-26-2023 11:18-0400 Body height 153.67 cm [facility] 10-26-2023 11:18-0400 Body mass index (BMI) [Ratio] 25 kg/m2 [facility] 10-26-2023 11:18-0400 Body weight 58.96 kg [facility] 05-10-2023 09:48-0400 Blood Pressure Location Elizabeth Lue [facility] 05-10-2023 09:48-0400 Diastolic blood pressure 67 mm[Hg] Elizabeth Lue [facility] 05-10-2023 09:48-0400 Heart rate 73 /min Elizabeth Lue [facility] 05-10-2023 09:48-0400 Respiratory rate 16 /min Elizabeth Lott [facility] 05-10-2023 09:48-0400 Systolic blood pressure 101 mm[Hg] Elizabeth Lue [facility] 02-14-2023 14:00-0400 Body height 153.67 cm Himanshu Scovanner Other [employer] Other 02-14-2023 14:00-0400 Body mass index (BMI) [Ratio] 24.78 kg/m2 Himanshu Scovanner Other [employer] Other 02-14-2023 14:00-0400 Body weight 58.51 kg Himanshu Scovanner Other [employer] Other 02-14-2023 14:00-0400 Diastolic blood pressure 84 mm[Hg] Himanshu Scovanner Other [employer] Other 02-14-2023 14:00-0400 Systolic blood pressure 142 mm[Hg] Himanshu Scovanner Other [employer] Other 11-15-2022 16:30-0400 Body height 153.67 cm Himanshu Scovanner Other [employer] Other 11-15-2022 16:30-0400 Body mass index (BMI) [Ratio] 26.27 kg/m2 Himanshu Scovanner Other [employer] Other 11-15-2022 16:30-0400 Body weight 62.05 kg Himanshu Scovanner Other [employer] Other 11-15-2022 16:30-0400 Diastolic blood pressure 76 mm[Hg] Himanshu Borjas Other [facility] [employer] Other 11-15-2022 16:30-0400 Systolic blood pressure 128 mm[Hg] Himanshu Blackburnbolagurpreet Other [facility] [employer] Other Encounters Encounter Date Encounter Type Care Provider Facility Start: 05-02-2024 ambulatory [place] J Galea Facility :[facility] Start: 03-05-2024 End: 03-05-2024 ambulatory RISA Martínez Work Phone: [facility] Work Phone: Start: 03-05-2024 End: 03-05-2024 Patient encounter procedure RISA Martínez Work Phone: [facility] Work Phone: Start: 01-30-2024 End: 01-30-2024 ambulatory [place] J Galea Facility:[facility] Start: 01-30-2024 End: 01-30-2024 Patient encounter procedure [place] J Galea [facility] Start: 01-24-2024 End: 01-24-2024 ambulatory Elizabeth Lott Facility:[facility] Start: 01-24-2024 End: 01-24-2024 Patient encounter procedure Elizabeth Lott [facility] Start: 01-16-2024 End: 01-16-2024 ambulatory RISA Martínez Work Phone: [facility] Work Phone: Start: 01-16-2024 End: 01-16-2024 Patient encounter procedure RISA Martínez Work Phone: [facility] Work Phone: Start: 01-02-2024 End: 01-02-2024 ambulatory RISA Martínez Work Phone: [facility] Work Phone: Start: 01-02-2024 End: 01-02-2024 Patient encounter procedure PIT SUPERVISORKhushi Martínez Work Phone: [facility] Work Phone: Start: 12-08-2023 End: 12-08-2023 ambulatory NADIRA MARTÍNEZ [employer] [facility] Start: 11-14-2023 End: 11-14-2023 ambulatory Himanshu Borjas Facility:[facility] Start: 11-14-2023 End: 11-14-2023 ambulatory RISA Martínez Work Phone: [facility] Work Phone: Start: 11-14-2023 End: 11-14-2023 Patient encounter procedure RISA Martínez Work Phone: [facility] Work Phone: Start: 10-26-2023 End: 10-26-2023 ambulatory [facility] Work Phone: Start: 10-26-2023 End: 10-26-2023 Patient encounter procedure [facility] Work Phone: Start: 07-24-2023 End: 07-24-2023 ambulatory Elizabeth Lott Facility:[facility] Start: 07-24-2023 End: 07-24-2023 Patient encounter procedure Elizabeth Lott [facility] Start: 07-12-2023 End: 07-12-2023 ambulatory Elizabeth Lott Facility:[id number] Start: 07-05-2023 Refill Juan David sser PIT SUPERVISOR-[employer]ION CONSULTANT [facility] Comment on above: Med Refill Start: 05-24-2023 End: 05-24-2023 ambulatory Elizabeth Lott Facility::[id number] Start: 05-10-2023 End: 05-10-2023 ambulatory Elizabeth Lott Facility:[facility] Start: 05-10-2023 End: 05-10-2023 Patient encounter procedure Elizabeth Lott [facility] Start: 02-14-2023 End: 02-14-2023 ambulatory Himanshu Borjas Other [employer] Other Start: 02-14-2023 Office outpatient visit 15 minutes Himanshu Borjas [facility] Start: 01-23-2023 End: 01-23-2023 [facility] Start: 12-20-2022 End: 12-20-2022 ambulatory Fernando Castellon Facility:[facility] Start: 11-15-2022 End: 11-15-2022 ambulatory Himanshu Borjas Other [employer] Other Start: 11-15-2022 Office outpatient ne w 30 minutes Himanshu Borjas [facility] Start: 09-30-2022 End: 09-30-2022 ambulatory [facility] Facility:[facility] Start: 06-21-2022 End: 06-24-2022 ambulatory JUVENAL HARRELL [facility] Start: 06-21-2022 End: 06-23-2022 Subsequent hospital visit by physician [facility] Ir Nurse [address] [facility] [address] Scan Comment on above: Chest pain, unspecif ied type; Dizziness; Abnormal stress ECG Start: 11-27-2021 End: 11-28-2021 ambulatory NADIRA MARTÍNEZ Facility:[facility] Procedures Date Procedure Procedure Detail Performing Clinician Start: 01-16-2024 Computed tomography of abdomen and pelvis with contrast RISA Martínez Work Phone: Start: 07-24-2023 Removal of ureteral stent Albaniayifan Toney Start: 01-07-2023 Stented artery (finding) Elizabeth Lue [...] Adult BMI Screening Adult BMI Screen ing [facility] Start: 06-19-2024 Tobacco Screening Tobacco Screening [facility] Start: 01-02-2024 Patient referral [facility] Work Phone: Start: 08-17-2023 Tobacco Counseling Tobacco Counselin g [facility] Start: 03-10-2023 Influenza vaccination Influenza Vacc ine [facility] Start: 06-15-2022 Annual Wellness Visi t (AWV) Annual Wellness Visit (AWV) [facility] Start: 02-07-2022 Influenza vaccination Flu vaccine (# 1) [facility] Start: 2020 Fall Risk Screening Fall Risk Screen ing [facility] Start: 2020 Pneumococcal 65+ yea rs Vaccine (1 - PCV) Pneumococcal 65+ years Vaccine (1 - PCV) [facility] Start: 2010 Screening for osteoporosis DEXA (modify frequency per FRAX score) [facility] Start: 2005 Administration of varicella zoster vaccine Zoster (Shingles) Vaccine (1 of 2) [facility] Start: 2005 Screening for malign ant neoplasm of breast Breast cancer screen [facility] Start: 2005 Shingles vaccine (1 of 2) Hinojosa gles vaccine (1 of 2) [facility] Start: 2000 Screening for malign ant neoplasm of colon [facility] Start: 1995 Lipid panel Lipids [facility] Start: 1974 DTaP,Tdap and Td Vac cines (1 - Tdap) DTaP,Tdap and Td Vaccines (1 - Tdap) [facility] [employer] Start: 1974 DTaP/Tdap/Td vaccine (1 - Tdap) DTaP/Tdap/Td vaccine (1 - Tdap) [facility] [employer] Start: 1973 Hepatitis C screening Hepatitis C sc reen [facility] [employer] Start: 1967 Depression Screen Depression Screen [facility] Start: 1967 Depression Screening Depression Scre ening [facility] [employer] Start: 03-06-1956 COVID-19 Vaccine (#1) COVID-19 Vacci ne (#1) [facility] Start: 1955 Medicare Annual Well ness Visit Medicare Annual Wellness Visit [facility] CT Abdomen and Pelvi s W contrast IV [facility] End: 06-21-2022 CTA CORON EJECT FRAC WALL MOTION CTA CORON EJECT FRAC WALL MOTION Imaging Routine Chest pain, unspecified type Dizziness Abnormal stress ECG 1 Occurrences starting 06/21/2022 until 06/21/2022 [facility] Work Phone: Comment on above: 1 Occurrences starti ng 06/21/2022 until 06/21/2022 Fluoroscopy of esophagus [facility] Patient referral [facility] Work Phone: Payers Date Payer Category Payer Self-pay 2022 Private Health Insurance [id number] 2021 Medicare HU[employer]NA MEDICARE [place] [id number] 2021-Present [phone] [address] [address] [place] [address] [id number] 1959 Medicare [id number] 1955 Unknown [id number] [id number] .176 1955 Unknown [id number] [id number] .593 1955 Unknown [id number] [id number] .593 1955 Unknown [id number] 2.16.840.1.830230.3.579.2 .177 1955 Unknown [id number] [id number] .1286 1955 Unknown [id number] 2.16.840.1.609054.3.579.2 .727 1955 Unknown [id number] 2.16.840.1.280659.3.579.2 .727 1955 Unknown [id number] 2.16.840.1.321891.3.579.2 .727 1955 Unknown [id number] 2.16.840.1.686700.3.579.2 .727 1955 Unknown [id number] 2.16.840.1.815543.3.579.2 .727 1955 Unknown [id number] 2.16.840.1.526677.3.579.2 .727 1955 Unknown [id number] 2.16.840.1.619581.3.579.2 .727 Unknown HCAP/HFA/FAP Active [id number] Unknown [id number] [id number] .531 Unknown [id number] [id number] .531 Social History Date Type Detail Facility [facility] [employer] Phone: Start: 1955 Sex Assigned At Not on file [facility] [employer] Phone: Start: 08-19-2020 End: 06-19-2023 Sex Assigned At [facility] Start: 05-10-2023 Tobacco smoking status Light t obacco smoker (finding) [facility] Start: 04-27-2022 Tobacco smoking stat [facility] Smokes tobacco daily [facility] History of tobacco use Cigarette Smoker P [facility] Start: 08-19-2020 End: 04-27-2022 Cigarettes smoked current (pack per day) - Reported 0.5 [facility] Start: 04-27-2022 Tobacco use and exposure Smoke less tobacco non-user [facility] Start: 06-19-2023 Alcohol intake [facility] Instability Unknown [facility] Start: 04-27-2022 Tobacco Comment has been decre asing daily [facility] Start: 05-06-2022 Alcohol Comment social--rare [facility] Start: 12-20-2022 Tobacco smoking stat [facility] Smoker (finding) [facility] Start: 1955 Sex Assigned At Female F [facility] Functional Status Date Assessment Result Facility 05-10-2023 Functional Status N/A [facility] Clinical Notes 11-15-2022 to 01-02-2024 Note Date & Type Note Facility 01-02-2024 Evaluation note Authored January 02, 2024 2:23 pm Patient is positive for dysp epsia, patient notes dysphagia, epigastric pain, globus sensation and daily nausea Patient is also positive for abdominal pain [facility] Work Phone: 1(347) 564-156306-25-2024 Hospital Discharge instructionsAmbulatory Orders* Referral to Gastroenterology Time Frame: 01/02/24, Location: None Selected [facility] Work Phone: 1(197) 296-850002-01-2024 Hospital Discharge instructions Follow Up Care 08/10/2023 14:01:54 With:Oren BOB, JOCELYN Temple, URO Address: [address], [facility] [place] [address] [phone] When: Unknown [facility] 01-18-2024 Note [id number]23 [id number]01-17-2024 [id number] [facility]01-15-2024 Hospital Discharge instructions Patient Education 07/24/2023 [...] include: ?8 oz (237 mL) of milk, ofascyj-tgyjyxvugcfu-wzgqm milk, and calcium- fortifiedfruit juice. Calcium-fortified means [...] ?Spinach (cooked), rhubarb, beets, sweet potatoes, and Romanian chard. ?Peanuts. ?Potato chips, gabonese fries, and baked potatoes with skin on. ?Nuts and nut products. ?Chocolate. If you regularly take a diuretic medicine, make sure to eat at least 1 or 2 servings of fruits or vegetables that are high in potassium each day. These include: ?Avocado. ?Banana. ?York, prune, carrot, or tomato juice. ?Baked potato. [...] magnesium, fish oil, or vitamin B6. Take qzyg-xdl-mdsczae and prescription medicines only as told by [...] Casseroles. Pizza. Lasagna. Frozen meals. Potato chips. Czech fries. The items listed above may not [...] provider. Document Revised: 10/06/2022 Document Reviewed: 10/06/2022 [employer] Patient Education 2022 [employer]. Follow Up Care 07/13/2023 14:28:20 With:Elizabeth Lott Address: [address], [facility] [place] [address]- [phone] Business (1) [address], [address] [address] [phone] Business (1) When: Unknown Comments:Obtain renal US in 6 weeks at [facility]. Office to call with results. If no hydronephrosis, office will call to schedule follow up in 6 months with [facility]UB and renal US [facility]01-15-2024 NoteCystoscopy with Stent Removal ? Voiding after [...] ? 8 oz (237 mL) of milk, fgaufrt-bnejhqjisuiy-dsowf milk, and calcium- fortifiedfruit juice. Calcium-fortified means [...] Spinach (cooked), rhubarb, beets, sweet potatoes, and Romanian chard. ? Peanuts. ? Potato chips, gabonese fries, and baked potatoes with skin on. ? Nuts and nut products. ? Chocolate. ? If you regularly take a diuretic medicine, make sure to eat at least 1 or 2 servings of fruits orvegetables that are high in potassium each day. These include: ? Avocado. ? Banana. ? York, prune, carrot, or tomato juice. ? Baked [...] 1? oz glass of (more content not included)...[facility]12-27-2023 Miscellaneous Notes* Telephone Encounter - Cristine Rodriguez RN - 07/05/2023 5:30 PM EST [facility] Note* Telephone Encounter - Cristine Rodriguez RN - 07/05/2023 5:30 PM EST Ov 06/19/23 [facility]11-01-2023 Hospital Discharge instructions Patient Education 05/10/2023 [...] include: ?8 oz (237 mL) of milk, ndmpajq-dewidwjpshxl-zgizw milk, and calcium- fortifiedfruit juice. Calcium-fortified means [...] ?Spinach (cooked), rhubarb, beets, sweet potatoes, and Romanian chard. ?Peanuts. ?Potato chips, gabonese fries, and baked potatoes with skin on. ?Nuts and nut products. ?Chocolate. If you regularly take a diuretic medicine, make sure to eat at least 1 or 2 servings of fruits or vegetables that are high in potassium each day. These include: ?Avocado. ?Banana. ?York, prune, carrot, or tomato juice. ?Baked potato. [...] magnesium, fish oil, or vitamin B6. Take lrej-pvh-jekxocj and prescription medicines only as told by [...] Casseroles. Pizza. Lasagna. Frozen meals. Potato chips. Czech fries. The items listed above may not [...] provider. Document Revised: 03/07/2022 Document Reviewed: 03/07/2022 [employer] Patient Education 2022 [employer] Follow Up Care 02/01/2023 14:06:36 With:Oren BOB, JOCELYN Temple, URO Address: When: Unknown Comments:Sched Lt ESWL/Stent [facility] [employer] 08-08-2023 Evaluation note* Encounter Date Diagnosis Assessment Notes Treatment Notes Treatment Clinical Notes Feb, Hiatal hernia (ICD-10 - K44.9) Pt is taking omeprazole. Pt states this medication is working for her. Pt states she still some times gets acid reflux, but overall, she is doing well. Pt RTO in 6 months Feb, Esophageal stricture (ICD-10 - K22.2) [employer] Other 05-09-2023 Evaluation note* Encounter Date Diagnosis Assessment Notes Treatment Notes Treatment Clinical Notes November, GERD (gastroesophageal reflux disease) (ICD-10 - K21.9) we will obtain a records release to get records from [facility] It is recommened that patient get EGD and she argees to have this done Patient has family history of esophageal cancer November, Family history of esophageal cancer (ICD-10 - Z80.0) [employer] Other Evaluation + Plan note No data available for this section [facility] [employer] evaluation + Plan note Future Appointments Appointment Date:01/30/2024 08:00:00 AM Scheduled Provider:Albania Chow Location:[facility] Appointment Type:URO Office Visit [facility] evaluation note* Diagnosis Chest pain, unspecified type Dizziness Dizziness and giddiness Abnormal stress ECG Other nonspecific abnormal cardiovascular system function study documented in this encounter [facility] Work Phone: evaluation note* Diagnosis Onset Date Resolution Status Hiatal hernia acute [facility] Work Phone: Evaluation note* Author Himanshu Borjas [facility] Authored January 02, 2024 2:23 pm Patient is positive for dysp epsia, patient notes dysphagia, epigastric pain, globus sensation and daily nausea Patient is also positive for abdominal pain [facility] Work Phone: History general Narrative - Reported* Type Description Date Medical History kidney stones Medical History hypertension Medical History gastritis Medical History Hiatal hernia Surgical History kidney stone Surgical History fx nose Surgical History ablasion Surgical History tubal ligation [facility] Other [facility] general Narrative - Reported* Type Description Date Medical History kidney stones Medical History hypertension Medical History gastritis Medical History Hiatal hernia Surgical History kidney stone Surgical History fx nose Surgical History ablasion Surgical History tubal ligation Hospitalization History Heart procedure [facility] Other Hospital Discharge instructions No data available for this section [facility] InstructionsNot on filedocumented in this encounter [facility] note No data available for this section [facility] Reason for Referral Specialty Diagnoses / Procedures Referred By Milton jimenez Referred To Contact Radiology Diagnoses Chest pain, unspecified type Dizziness Abnormal stress ECG R07.9 (ICD-10-CM) - Chest pain, unspecified type Procedures CTA CORON EJECT FRAC WALL MOTION CHG CT ANGIO HRT CORNRY ART/BYPASS GRFTS CONTRST 3D POST [id number] - CHG CT ANGIO HRT CORNRY ART/BYPASS GRFTS CONTRST 3D POST Juvenal Harrell MD [address] [place] [address] Referral ID Status Reason Start Date Expiration Date V isits Requested Visits Authorized [id number] Authorized 06/21/2022 05/07/2023 1 1 Summary Purpose [...] Recorded Date/ Time Advance Directives No October 25, 024 11:06am Chief Complaint and Reason for Visit [...] disease) Hiatal hernia Nausea Chief Complaint follow up R10.9 2 month follow up-dysmotility Reason for Visit Abdominal pain Esophageal dysmotility GERD (gastroesophageal reflux [...] HRT CORNRY ART/BYPASS GRFTS CONTRST 3D POST [id number] - CHG CT ANGIO HRT CORNRY ART/BYPASS GRFTS CONTRST 3D POST Juvenal Harrell MD [address] [place] [address] Referral ID Status Reason Start Date Expiration Date V isits Requested Visits Authorized [id number] Authorized 06/21/2022 05/07/2023 1 1 Reason Comments Med Refill Care Teams (unrecognized sec tion and content) Sock Boarder Relationship Specialty Start Date End Date Nadira Martínez APRN - FASHION CONSULTANT [address] [place], [place] [id number] PCP - General Certified Nurse Practitioner 06/17/22 Sock Boarder Relationship Specialty Start Date End Date Nadira Martínez APRN-FASHION CONSULTANT [address] [place], [place] [id number] PCP - General Family Medicine 11/23/20 Team Status: Active Member Role Status Dates Nadira Martínez APRN MEDICAL CONSULTANT-C Primary Care Provider Active Team Status: Inactive Member Role Status Dates Nadira Martínez APRN MEDICAL CONSULTANT-C Primary Care Provider Active Start: October 26, 2023 End: October 26, 2023 Himanshu Borjas APRN Attending Provider Active Start: October 26, 2023 End: October 26, 2023 Team Status: Inactive Member Role Status Dates Nadira Martínez APRN MEDICAL CONSULTANT-C Primary Care Provider Active Start: November 14, 2023 End: November 14, 2023 Himanshu Borjas APRN Attending Provider Active Start: November 14, 2023 End: November 14, 2023 Team Status: Inactive Member Role Status Dates Nadira Martínez APRN MEDICAL CONSULTANT-C Primary Care Provider Active Start: January 02, 2024 End: January 02, 2024 Himanshu Borjas APRN Attending Provider Active Start: January 02, 2024 End: January 02, 2024 Team Status: Inactive Member Role Status Dates Nadira Martínez APRN MEDICAL CONSULTANT-C Primary Care Provider Active Start: January 16, 2024 End: January 16, 2024 Himanshu Borjas APRN Attending Provider Active Start: January 16, 2024 End: January 16, 2024 Team Status: Inactive Member Role Status Dates Nadira Martínez APRN MEDICAL CONSULTANT-C Primary Care Provider Active Start: March 05, 2024 End: March 05, 2024 Himanshu Borjas APRN Attending Provider Active Start: March 05, 2024 End: March 05, 2024 INFORMATION SOURCE (unrecogn ized section and content) DATE CREATED AUTHOR 06/30/2022 [facility] DATE CREATED AUTHOR AUTHOR'S ORGANIZ ATION 10/06/2022 [facility] DATE CREATED AUTHOR AUTHOR'S ORGANIZ ATION 01/23/2023 [facility] DATE CREATED AUTHOR AUTHOR'S ORGANIZ ATION 11/15/2023 [facility] DATE CREATED AUTHOR AUTHOR'S ORGANIZ ATION 12/12/2023 [facility] DATE CREATED AUTHOR AUTHOR'S ORGANIZ ATION 04/27/2024 [facility] Goals (unrecognized section and content) Goals [...] BE BASED ON THE PRIMARY CLINICAL RECORDS. [facility] [employer] [facility]. provides no warranty or guarantee of the accuracy or completeness of information in this document.
== END 2024-04-30 10:02 | disposition home or self-care (01) ==
LOC: US 10:01
PROVIDERS: Visit Provider Urology
DX: N20.0 Calculus of kidney (principal); N28.1 Cyst of kidney, acquired
CPT/HCPCS: 74018; 76775

== ENCOUNTER 2024-05-29 12:02 | Outpatient (OUT) | payer MEDICARE, SELFPAY ==
[2024-05-29 13:02] LABS: Alanine Aminotransferase 14 U/L (14-59); Albumin Globulin Ratio 1.1; Albumin Level 3.6 g/dL (3.4-5.0); Alkaline Phosphatase 54 U/L (46-116); Anion Gap 16.3; Aspartate Amino Transferase 11 U/L (15-37); BUN Creatinine Ratio 18.8; Bilirubin Total 0.3 mg/dL (0.2-1.0); Calcium 8.6 mg/dL (8.5-10.1); Carbon Dioxide 22.7 mmol/L (21.0-32.0); Chloride 106 mmol/L (98-107); Chol HDL Ratio 5.1; Cholesterol 225 mg/dL (<=200); Estimated GFR (African America >60 (>=60 mL/min/1.73m^2); Estimated GFR (Non-African Ame >60 (>=60 mL/min/1.73m^2); Globulin 3.3 g/dL; Glucose 91 mg/dL (74-106); HDL Cholesterol 44 mg/dL (40-60); Sodium 141 mmol/L (136-145); Total Protein 6.9 g/dL (6.4-8.2); Triglycerides 163 mg/dL (<=150); VLDL CHOLESTEROL 32.6 mg/dL
== END 2024-05-29 12:03 | disposition home or self-care (01) ==
LOC: LAB 12:03
PROVIDERS: Visit Provider Nurse Practitioner
DX: E78.5 Hyperlipidemia, unspecified (principal); I10 Essential (primary) hypertension
CPT/HCPCS: 36415; 80053; 80061

== ENCOUNTER 2024-07-24 10:09 | Outpatient (OUT) | payer MEDICARE, SELFPAY ==
[2024-07-24 11:15] LABS: Chol HDL Ratio 5.4; Cholesterol 263 mg/dL (<=200); HDL Cholesterol 49 mg/dL (40-60); Triglycerides 222 mg/dL (<=150); VLDL CHOLESTEROL 44.4 mg/dL
== END 2024-07-24 10:10 | disposition home or self-care (01) ==
LOC: LAB 10:14
DX: I10 Essential (primary) hypertension (principal)
CPT/HCPCS: 36415; 80061

== ENCOUNTER 2024-09-18 22:51 | Emergency (ER) | payer MEDICARE, SELFPAY ==
--- OUTSIDE RECORDS SUMMARY | 2024-09-18 22:58 | XMS_ITS | CCD ---
Demographics Address [address] [place] [address] Mobile Phone Preferred Language en Marital Status Single Congregation Affiliation Unknown Race White Ethnic Group Not or Lati no Author Organization [facility] Care Team Providers Care Saddle Mechanic Name Role Phone Davidlim Nadira MOSS CNP Primary Care Provider CHANEL HARRELL Referring Unavailable ANGGHADA, NADIRA Primary Care Unavailable [facility] Care Unava ilable GABRIELLA GRANTYL Consulting Unavailable JUANITA, MIKHAIL Admitting Unavailable GABRIELLA GRANTYL Attending Unavailable ANGGAHDA, NADIRA Admitting Unavailable ANGGHADA, NADIRA Attending Unavailable [facility] Care Unava ilable MARILYNN, NADIRA Consulting Unavailable Himanshu Borjas Unavailable LOS LEE Admitting Unavailable LOS LEE Attending Unavailable LOS LEE Referring Unavailable MARILYNN, NADIRA Primary Care Unavailable NADIRA MARTÍNEZ Primary Care Physician RISA Martínez Primary Care Provider RISA Borjas Attending Provider RISA Martínez Primary Care Provider RISA Borjas Attending Provider Rafael Garrison MD Primary Care Provider [phone] Himanshu Borjas CNP Unavailable Himanshu Borjas Admitting Unavailable ScHimanshu jim Attending Unavailable Marilynn, Nadira Primary Care Unavailable ScHimanshu jim Admitting Unavailable ScHimanshu jim Attending Unavailable Marilynn, Nadira Primary Care Unavailable Himanshu Borjas Attending Unavailable NON STAFF Primary Care Unavailable ScHimanshu jim M Admitting Unavailable Anglim Nadira LALA Primary Care Provider [facility] Primary Care Provider NADIRA MARTÍNEZ Referring Unavailable MARILYNN, NADIRA A Primary Care Unavailable JOEY BOLDEN Attending Unavailable NADIRA MARTÍNEZ Referring Unavailable [facility] Primary Care Unava ilable NON STAFF Primary Care Provider UnavailHimanshu Villa APRN Attending Provider FERNANDO CASTELLON Referring Unavailable MICAELA MONROY Attending Unavailable RAFAEL GARRISON Primary Care Unavailable JASMIN BHANDARI Attending Unavail able JASMIN BHANDARI Attending Unavail able Elizabeth Lott Attending Unavailable Elizabeth Lott Attending Unavailable Elizabeth Lott Attending Unavailable [place] Toney Attending Unavailable Allergies Allergy Classification Reported Allergen(s) Allergy Type Date of Onset Reaction(s) Facility (1 source) No Known Medication Allergies; Translations: [No Known Medication Allergies] Propensity to adverse reactions (disorder) [facility] Repository Medications Current Medications Medication Drug Class(es) Dates Sig (Normalized) Sig (Original) ALPRAZolam (7 sources) Benzodiazepine Start: 05-10-2023 alprazolam Oral, Refills(s) 0 Start Date: 05/10/23 Status: Ordered aspirin 81 mg oral capsule (12 sources) Platelet Aggregation Inhibitor, Nonsteroidal Anti-inflammatory Drug Start: 05-10-2023 take 1 mg by mouth every twenty-four hours aspirin 81 mg oral capsule mg cap(s), Oral, q24hr, Refills(s) 0 Start Date: 05/10/23 Status: Ordered Start: 01-23-2023 take 1 tablet by sekou th in the morning aspirin 81 mg Take 1 tablet (81 mg total) by mouth in the morning. 01/23/2023 Active atorvastatin 20 mg oral tablet (2 sources) HMG-CoA Reductase Inhibitor Start: 10-03-2014 take 1 tablet by mouth once daily atorvastatin (LIPITOR) 20 mg tablet Take 1 tablet by mouth once daily. 0 10/03/2014 Active citalopram 20 mg oral tablet (20 sources) Serotonin Reuptake Inhibitor Start: 10-03-2014 take 1 tablet by mouth once daily Citalopram 20 mg Tablet Active 20 MG PO Daily December 19, 2022 11:00pm clopidogrel 75 mg oral tablet (20 sources) [id number] Platelet Inhibitor Start: 01-23-2023 End: 02-01-2024 take 1 tablet by mouth once daily Clopidogrel (Plavix) 75 mg tablet Active 75 MG PO Daily October 25, 2023 11:00pm Plavix Active estradiol 0.1 mg/ml vaginal cream (7 sources) Estrogen Start: 05-10-2023 Estrace 0.1 mg /g Cream See Instructions, 42.5 gm, Refill(s) 3, apply pea size amount to urethra/inner vagina 3x/week x 1 month, then 2x/week for maintainence, [facility], 152.4, cm, 05/10/23 9:55:00 EDT, Height/Length Dosing, 57.6, kg, 05/10/23 9:55:00 EDT, Weight Dosing Start Date: 05/10/23 Status: Ordered famotidine 40 mg oral tablet (15 sources) Histamine-2 Receptor Antagonist Start: 01-02-2024 End: 09-10-2024 take 1 tablet by mouth twice daily Famotidine 40 mg tablet Active 40 MG PO Twice daily 60 September 10, 2024 3:10pm Start: 10-26-2023 End: 01-02-2024 take 1 tablet by mouth once daily at bedtime Famotidine 40 mg tablet Discontinued 40 MG PO Daily at bedtime October 25, 2023 11:00pm January 02, 2024 1:12pm 24 hr isosorbide mononitrate 30 mg extended release oral tablet (6 sources) Nitrate Vasodilator Start: 07-06-2023 take 1 [...] MOUTH DAILY. 90 tablet 3 07/06/2023 Active lisinopril 40 mg oral tablet (20 sources) Angiotensin Converting Enzyme Inhibitor Start: 05-10-2023 take 1 mg by mouth once daily lisinopril 40 mg Tab mg tab(s), Oral, Daily, Refills(s) 0 Start Date: 05/10/23 Status: Ordered Start: 10-03-2014 take 1 tablet by sekou once daily Lisinopril 20 mg Tablet Active 20 MG PO Daily December 19, 2022 11:00pm loperamide hydrochloride 2 mg oral capsule (2 sources) Opioid Agonist Start: 07-30-2024 take 1 capsule by mouth once as needed Loperamide (Imodium A-D) 2 mg capsule Active 2 MG PO .prn as needed July 30, 2024 12:00am 24 hr metoprolol succinate 25 mg extended release oral tablet (5 sources) beta-Adrenergic Shoaib Start: 02-10-2023 take 1 tablet by mouth once daily metoprolol succinate XL (TOPROL XL) 25 mg 24 hr tablet Indications: 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 90 tablet 3 02/10/2023 Active nitroglycerin 0.4 mg sublingual tablet (2 sources) Nitrate Vasodilator Start: 07-01-2024 nitroglycerin (NITROSTAT) 0.4 MG SL tablet 1 under the tongue as needed for angina, may repeat q5mins for up three doses 30 tablet 3 07/01/2024 Active omeprazole 40 mg delayed release oral capsule (20 sources) Proton Pump Inhibitor Start: 01-02-2024 End: 09-10-2024 take 1 capsule by mouth twice daily Omeprazole 40 mg capsule,delayed release(DR/EC) Active 40 MG PO Twice daily 60 September 10, 2024 3:10pm Start: 12-20-2022 End: 12-20-2022 take 1 capsule by mouth once daily Omeprazole 20 mg Capsule,Delayed Release(Dr/Ec) Discontinued 20 MG PO Daily December 19, 2022 11:00pm December 20, 2022 12:54pm Start: 08-24-2021 End: 01-02-2024 take 1 capsule by mouth once daily Omeprazole 40 mg capsule,delayed release(DR/EC) Discontinued 40 MG PO Daily December 19, 2022 11:00pm January 02, 2024 1:15pm take 1 capsule by [facility] twice daily Omeprazole 20 MG 1 capsule 30 minutes before morning meal Orally BID Active rosuvastatin calcium 20 mg oral tablet (20 sources) HMG-CoA Reductase Inhibitor Start: 04-18-2024 Rosuvastatin Active MG PO October 26, 2023 12:00am FreeTextSig: Oral; Note: Source Status: Taking; Qty: 90 Tablet; Provider: Suad Downs ( ) Start: 02-10-2023 Rosuvastatin 2 0 mg tablet Active MG PO October 25, 2023 11:00pm FreeTextSig: Oral; Note: Source Status: Taking; Qty: 90 Tablet; Provider: Suad Downs ( ) Completed/Discontinued Medications Medication Drug Class(es) Dates Sig (Normalized) Sig (Original) ciprofloxacin 500 mg oral tablet (3 sources) Quinolone Antimicrobial Start: 05-30-2024 End: 07-30-2024 Ciprofloxacin Hcl 500 mg tablet Discontinued 500 MG PO May 30, 2024 12:00am July 30, 2024 3:33pm oxybutynin chloride 5 mg oral tablet (4 sources) Cholinergic Muscarinic Antagonist Start: 05-24-2023 End: 07-01-2024 take 1 tablet by mouth in the morning, then take 1 tablet by mouth at bedtime oxybutynin (DITROPAN) 5 mg tablet Take 1 tablet (5 mg total) by mouth in the morning and 1 tablet (5 mg total) before bedtime. 05/24/2023 07/01/2024 Discontinued (Discontinued by another clinician) tamsulosin hydrochloride 0.4 mg oral capsule (4 sources) alpha-Adrenergic Shoaib Start: 05-24-2023 End: 07-01-2024 take 1 capsule by mouth once daily tamsulosin (FLOMAX) 0.4 mg capsule Take 1 capsule (0.4 mg total) by mouth nightly. 05/24/2023 07/01/2024 Discontinued (Discontinued by another clinician) Problems Active Problems Problem Classification Problem Date Documented Da te Episodic/Chronic Abdominal hernia (20 sources) Diaphragmatic hernia without obstruction or gangrene; Translations: [Hiatal hernia] Onset: 4 Episodic Abdominal pain (14 sources) Abdominal pain; Translations: [Unspecified abdominal pain] Onset: 4 01-02-2024 Episodic Allergic reactions (3 sources) Allergy to drug 07-24-2024 Episodic Calculus of urinary tract (20 sources) Personal history of urinary calculi; Translations: [History of calculus of kidney] Onset: 7 Episodic Coronary atherosclerosis and other heart disease (12 sources) Coronary arteriosclerosis; Translations: [Atherosclerotic heart disease of lytton coronary artery with other forms of angina pectoris] Onset: 3 05-10-2023 Chronic Diseases of white blood cells (2 sources) Leukocytosis; Translations: [Elevated white blood cell count, unspecified] Onset: 5 10-06-2014 Chronic Disorders of lipid metabolism (11 sources) Pure hypercholesterolemia, unspecified; Translations: [Hyperlipidemia, unspecified] Onset: 2 05-10-2023 Chronic E Codes: Cut/pierceb (1 source) Contact with knife, initial encounter; Translations: [CONTACT WITH KNIFE INITIAL ENC] Onset: 3 Episodic Esophageal disorders (20 sources) Gastroesophageal reflux disease; Translations: [Gastro-esophageal reflux disease without esophagitis] Onset: 4 Chronic Comment on above: Problem List clean-u p per request of Phys. EHR Cmte Essential hypertension (14 sources) Essential (primary) hypertension; Translations: [Hypertensive disorder] Onset: 2 Chronic Genitourinary symptoms and ill-defined conditions (1 source) Procedure carried out on subject; Translations: [Encounter for fitting and adjustment of urinary device] Onset: 4 Chronic Genitourinary symptoms and ill-defined conditions (18 sources) Unspecified symptoms and signs involving the genitourinary system; Translations: [Urinary symptoms ] Onset: 7 Episodic Hypertension with complications and secondary hypertension (5 sources) Hypertensive heart disease; Translations: [Hypertensive heart disease without heart failure] Onset: 3 02-10-2023 Chronic Immunizations and screening for infectious disease (1 source) Encounter for immunization; Translations: [ENCOUNTER FOR IMMUNIZATION] Onset: 3 Episodic Menopausal disorders (10 sources) Atrophic vaginitis; Translations: [Postmenopausal atrophic vaginitis] Onset: 3 Chronic Mood disorders (1 source) Mood disorders; Translations: [DEPRESSION UNSPECIFIED] Onset: 3 Nausea and vomiting (12 sources) Nausea; Translations: [Nausea] 01-02-2024 Episodic Open wounds of extremities (4 sources) Laceration without foreign body of right index finger without damage to nail, initial encounter; Translations: [LAC W/O FB RT IF W/O DMG NAIL INIT] Onset: 3 Episodic Other aftercare (1 source) Other alf (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 therapy; Translations: [OTH CLOTH WORKER CURRENT DRUG THERAPY] Onset: 3 Episodic Other aftercare (4 sources) Long-term current use of anticoagulant; Translations: [terminal clerk (current) use of anticoagulants] Onset: 5 Episodic Other aftercare (1 source) Long-term current use of drug therapy; Translations: [terminal clerk (current) use of antithrombotics/antipl atelets] Onset: 5 Episodic Other gastrointestinal disorders (3 sources) Irritable bowel syndrome with diarrhea; Translations: [Irritable bowel syndrome with diarrhea] 05-30-2024 Chronic Other gastrointestinal disorders (2 sources) Irritable bowel syndrome with diarrhea; Translations: [Irritable bowel syndrome] 07-30-2024 Chronic Other gastrointestinal disorders (3 sources) Diarrhea; Translations: [Diarrhea, unspecified] 05-30-2024 Episodic Other gastrointestinal disorders (4 sources) Diarrhea, unspecified; Translations: [Diarrhea] Onset: 4 05-30-2024 Episodic Other lower respiratory disease (8 sources) Cough; Translations: [Cough] 10-26-2023 Episodic Other nutritional; endocrine; and metabolic disorders (5 sources) Disorder of mineral metabolism; 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, unspecified] Onset: 7 09-26-2022 Chronic Prolapse of female genital organs (10 sources) Cystocele; Translations: [Cystocele, unspecified] Onset: 3 Chronic Residual codes; unclassified (1 source) Family history of malignant neoplasm of digestive organs Episodic Residual codes; unclassified (8 sources) History of cardiac catheterization; Translations: [Other specified postprocedural states] 10-26-2023 Episodic Residual codes; unclassified (8 sources) Past history of procedure; Translations: [Other specified postprocedural states] 10-26-2023 Episodic Residual codes; unclassified (3 sources) Tobacco user 07-24-2024 Episodic Substance-related disorders (5 sources) Nicotine dependence, cigarettes, uncomplicated; Translations: [Smoker] Onset: 3 07-01-2024 Chronic Unclassified (2 sources) cath procedure; Translations: [cath procedure] Onset: 3 Unclassified (1 source) Cough, unspecified; Translations: [Cough, unspecified] Onset: 4 Unclassified (1 source) Long-term current use of drug therapy 08-27-2024 Urinary tract infections (7 sources) Urinary tract infectious disease 05-10-2023 Episodic Past or Other Problems Problem Classification Problem Date Documented Da te Episodic/Chronic Conditions associated with dizziness or vertigo (7 sources) Dizziness; Translations: [Dizziness and giddiness] Onset: 05-06-2022 Episodic Coronary atherosclerosis and other heart disease (6 sources) Presence of coronary angioplasty implant and graft; Translations: [Percutaneous transluminal coronary angioplasty status] Onset: 02-10-2023 02-10-2023 Episodic Fluid and electrolyte disorders (2 sources) Dehydration; Translations: [Dehydration] Onset: 10-06-2014 10-06-2014 Episodic Nonspecific chest pain (7 sources) Chest pain; Translations: [Chest pain, unspecified] Onset: 05-06-2022 Episodic Other aftercare (1 source) Patient encounter status; Translations: [Other machine long goods helper (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 therapy] 02-01-2024 Episodic Other diseases of kidney and ureters (5 sources) Cyst of kidney; Translations: [Cyst of kidney, acquired] Onset: 07-29-2016 02-14-2022 Episodic Other screening for suspected conditions (not mental disorders or infectious disease) (3 sources) Echocardiogram abnormal; Translations: [Abnormal result of other cardiovascular function study] Onset: 06-21-2022 Episodic Results Test Name Value Interpretation Reference Range Facility Ambulatory Visit Summaryon 0 08-27-2024 Ambulatory Visit Summary Ambulatory Visit Summary SLY COY :1955 Visit Date:08/27/2024 Ambulatory Visit Instructions Your Diagnosis Female bladder prolapse Kidney stones Vaginal atrophy Antiplatelet or antithrombotic long-term use Smoker Your Care Team Attending Physician - THONY BOB, JASMIN Primary Care Physician - NADIRA MARTÍNEZ CNP This Is Your Medications List estradiol topical (Estrace 0.1 mg/g Cream) Contact prescribing physician if questions or concerns alprazolam aspirin (aspirin 81 mg oral capsule) citalopram (citalopram 20 mg Tab) clopidogrel (Plavix 75 mg Tab) lisinopril (lisinopril 40 mg Tab) rosuvastatin (rosuvastatin 20 mg Tab) Procedures Performed Removal of ureteral stent (07/24/2023), Ureteroscopy (07/12/2023), ESWL of kidney (05/24/2023), Stented artery (01/07/2023), Hysterectomy (2018), ESWL of kidney (03/05/2009), ESWL of kidney (01/22/2009), ESWL of kidney (09/28/2006), Urodynamics (12/13/2005), ESWL of kidney (12/01/2005), Cystoscopy (11/25/2005), Bladder care. Discharge Vitals Heart Rate (Peripheral) 66 Blood Pressure 140/78 Height 152 cm Height 60 in Weight 57.3 kg Weight 126.325 lb BMI 24.8 What to do next You Need to Schedule the Following Appointments Follow Up with THONY BOB, JOCELYN CASTELLANOS When: Where: Medications What How Much When Instructions Unchanged estradiol topical (Estrace 0.1 mg/ g Cream) See instructions apply pea size amount to urethra/ inner vagina 3x/ week x 1 month, then 2x/ week for maintainence Unchanged alprazolam By Mouth Contact prescribing physician [...] Contact prescribing physician if questions or concerns Allergies No Known Medication Allergies Problems Ongoing - Any problem that you are currently receiving treatment for. Anticoagulant long-term use Antiplatelet or antithrombotic long-term use CAD (coronary artery disease) Female bladder prolapse Frequency of urination Hyperlipidemia Hypertension Kidney stones Personal history of kidney stones Smoker UTI (urinary tract infection) UTI symptoms Vaginal atrophy Historical - Any problem that you are no longer receiving treatment for. Anticoagulant allergy Patient Survey You may receive a survey via text or e-mail asking about your office visit. Please share your experience with us by completing your survey. We appreciate your feedback and thank you for choosing us for your care. Education Materials Steps to Quit Smoking Smoking tobacco is the leading cause of preventable . It can affect almost every organ in the body. Smoking puts you and those around you at risk for developing many serious chronic diseases. Quitting smoking can be very challenging. Do not get discouraged if you are not successful the first time. Some people need to make many attempts to quit before they achieve long-term success. Do your best to stick to your quit plan, and talk with your health care provider if you have any questions or concerns. How do I get ready to quit? When you decide to quit smoking, create a plan to help you succeed. Before you quit: ??? Pick a date to quit. Set a date within the next 2 weeks to give you time to prepare. ??? Write down the reasons why you are quitting. Keep this list in places where you will see it often. ??? Tell your family, friends, and co-workers that you are quitting. Support from people you are close to can make quitting easier. ??? Talk with your health care provider about your options for quitting smoking. ??? Find out what treatment options are covered by your health insurance. ??? Identify people, places, things, and activities that make you want to smoke (triggers). Avoid them. What first steps can I take to quit smoking? Throw away all cigarettes at home, at work, and in your car. ??? Throw away smoking accessories, such as ashtrays and lighters. ??? Clean your car. Make sure to empty the ashtray. ??? Clean your home, including curtains and carpets. What strategies can I use to quit smoking? Talk with your health care provider about combining strategies, such as taking medicines while you are also receiving in-person counseling. Using these two strategies together makes you more likely to succeed in quitting than if you used either strategy on its own. If you are or breast (more content not included)... Normal [facility] Urology Office/Clinic Noteon 08-27-2024 Urology Office/Clinic Note Urology Office/Clinic Note Chief Complaint follow up HPI Staff KML pt. 68 yr old female here to discuss cystocele repair. Previous dx: kidney stones, vaginal atrophy, UTI sxs, personal hx of kidney stones, female bladder prolapse. patient denies any urinary changes since she saw Dr. Lott last History of Present Illness Tests reviewed: none. I have reviewed the previous health record information and history for this patient from Dr. Lott I have reviewed and verified the staff HPI to be accurate for this encounter. There have been no associated fever, chills, flank pain, or blood in the urine. Denies any urinary infections since last encounter. Review of Systems PHQ Score Initial Depression Screen Score: 0 SCORE ROS - Provider Constitutional: denies weight loss, [...] HPI. Physical Exam Vitals & Measurements HR: 66(Peripheral) BP: 140/78 HT: 60 in HT: 152 cm WT: 57.3 kg WT: 126.325 lb BMI: 24.8 General Appearance: alert , no acute distress, well nourished, well developed female. Head: normocephalic . Eyes: normal orbit and globe. ENMT: normal examination of external ears. Genitourinary: grade III central cystocele. Psychiatric: cooperative, affect appropriate for age, normal judgement, euthymic mood. Assessment/Plan KML pt here to discuss cystocele repair. Portions of this record may have been created with voice recognition artificial intelligence software, specifically streamOnce, [employer] and or [employer]. Substitutions may have occurred due to the inherent limitations of voice recognition and artificial intelligence software. 1. Female bladder prolapse (N81.10: Cystocele, unspecified) S/p vaginal hysterectomy 2019. Still has ovaries. S/p bladder sling with mesh. Unsure of date. 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 S/p Cysto, L Ureteroscopy, stone extraction, stent placement 07/12/23 - grade III cystocele to level of introitus Not sexually active. BBSQ 19 PVR 07/24/24 - 14 mL. Physical exam ~Grade III central cystocele. Discussed options such as using a pessary vs surgical options. Risks and benefits of each discussed. Not interested in pessary. Pt very adamant that she wishes to proceed with surgical management. Pt wishes to proceed with sacrocolpopexy. -Cont Estrace cream -Schedule robotic-assisted sacrocolpopexy under general anes in October. Risks discussed 2. Kidney stones (N20.0: Calculus of kidney) S/p L ESWL 03/05/09. KUB 03/18/23 - 3 clusters of calcification projecting over the Lt kidney and 1 cluster of calcification projecting over the Rt kidney Pt presented to [facility] ER 03/27/23 due to blood in urine and lower abdominal /back pain. CT AP wo 03/27/23 - 3 non obstructing stones largest measuring 9mm in left kidney. Upon personal review: 9x6mm LMP, 7x5mm LUP, 5x4mm LLP, 7.7 x 6mm RUP SSD 8-10cm, all HU ~750 KUB/RAFAEL 04/30/24 - 7mm stone projecting over the pole of the Rt kidney, several small stones projecting over the superior pole of the Lt kidney S/p Cysto, L Ureteroscopy, stone extraction, stent placement 07/12/23 - cystocele to level of introitus S/p Cysto w/ L Stent Removal 07/24/23 -L ESWL scheduled 09/2024 3. Vaginal atrophy (N95.2: Postmenopausal atrophic vaginitis) Continues Estrace cream. 4. Antiplatelet or antithrombotic long-term use (Z79.02: [facility] (current) use of antithrombotics/anti platelets) Plavix. Has a heart stent. Elevated risk of periop complications. 5. Smoker (F17.200: Nicotine dependence, unspecified, uncomplicated) Pt states she has been cutting back. Pt states I'm trying . Cessation encouraged. Patient presents with a stage III anterior prolapse. I discussed surgical options including transvaginal repair with lytton tissue, abdominal sacrocolpopexy and patient opts for the latter. She was counseled on the risk, benefits, alternatives and she would like to proceed. I discussed with her in detail about the surgery, side effect profile and patient communicated full understanding. Will schedule the surgery for October. With 1 night hospital stay. Follow-up With When Contact Information JASMIN BHANDARI MD, JOCELYN Additional Instructions: Schedule robotic-assisted sacrocolpopexy in October Patient Education Steps to Quit Smoking How to Use a Vaginal Pessary Sary Sandoval, personally scribed for Dr. Lane on 08/27/2024 14:17:35. . Documentation recorded by the Sary anaya accurat (more content not included)... [facility] Comment on above: Result Comment: Elec tronically Signed By: JASMIN BHANDARI MD\.br\Date and Time Signed: 08/27/24 14:39 EST\.br\Electronically Co-Signed By: Sary Navarro\.br\Date and Time Co-Signed: 08/27/24 14:18 EST Patient Letter FTon 2024 Patient Letter [facility] [facility] August 13, 2024 [address]LY COY [address] [place] [address] : 1955 Dear _ , You missed your scheduled appointment on:08/13/2024 @3:00pm with Doctor Maria Alejandra. Please note our appointment slots fill quickly. When you fail to cancel or reschedule an appointment the office is unable to fill the appointment slot that was reserved for you. In the future, we ask that you call 24 hours in advance to cancel your appointment. Our current reminder system gives you the opportunity to cancel by responding to our reminder text, phone call or email. You can also call the office to reschedule during normal business hours or use our on-line scheduling portal at your convenience. Our goal is to provide convenient and quality care to all of our patients. We appreciate your consideration regarding any future cancellations. If you have any questions please contact us at the phone number listed below and be sure to select option 3. Sincerely, [facility] [address]OVon 08-05-2024 [facility] Office Visit ([facility]) COYSLY ([id number]) 1955 F Date Time Provider Department 08/05/24 11:00 AM MICAELA MONROY [facility] During your visit today, we recorded the following information about you: Temperature Pulse Blood pressure Weight 97 degrees 56/minute 108/45 53.5 kg Micaela Monroy MD 08/05/2024 11:30 AM Signed Consultation requested by Dr. Fernando Castellon for an opinion regarding hiatal hernia. My final recommendations will be communicated back to the requesting physician by way of shared medical record or letter via US mail Pt w weight loss and GERD. Started on PPI and now feels well and has no symptoms anymore. Has had EGD in past w small hiatal hernia. CT scan also w small hiatal hernia and no paraesoph component. States suffering from diverticulitis and now has diarrhea which she attributes to her weight loss. PAST MEDICAL HISTORY Diagnosis Date Hyperlipidemia Hypertension Leukocytosis No past surgical history on file. Current Outpatient Medications on File Prior to Visit Medication Sig omeprazole (PRILOSEC) 40 mg capsule 1 capsule 30 minutes before morning meal Orally Once a day for 30 days rosuvastatin (CRESTOR) 20 mg tablet Take 20 mg by mouth. citalopram (CELEXA) 20 mg tablet Take 1 tablet by mouth once daily. lisinopril (PRINIVIL) 20 mg tablet Take 1 tablet by mouth once daily. atorvastatin (LIPITOR) 20 mg tablet Take 1 tablet by mouth once daily. (Patient not taking: Reported on 08/05/2024) No current facility-administere d medications on file prior to visit. Blood pressure (!) 108/45, pulse (!) 56, temperature 36.1 ?C (97 ?F), weight 53.5 kg (118 lb), SpO2 98%. WAD Breathing comfortably on RA CT images and EGD reports reviewed A/p: small sliding hiatal hernia We discussed, in detail, and using diagrams the issue and finding of small hiatal hernia. We discussed aspects of symptoms and symptoms management: and especially need for immediate lifestyle modification including healthy diet, smaller frequent meals, laying supine only after at least 4 hrs of fasting and smoking cessation. At this stage there is no need for surgical intervention as the lifestyle modifications take priority in addressing the symptoms and that the PPI have resolved her symptoms. She understands the aspects of the disease process, reasons for these recommendations and why surgery to repair this small hernia is not recommended at this stage. All of her questions answered and concerns addressed Pt appreciative of the care Micaela Monroy MD I spent 30 minutes in the visit, with more than 50% of the total wlgm-pd-ifci time of the visit in counseling / coordination of care. Referring Provider: FERNANDO CASTELLON [[id number]] Allergies As of Date: 08/05/2024 (No Known Allergies) Date Reviewed: 08/05/2024 Reviewed by: Aura Evans OCCA - Fully Assessed Reason for Visit: Hernia [1598] Primary Visit Diagnosis:Hiatal hernia [K44.9] Prescriptions as of 08/05/2024 - omeprazole (PRILOSEC) 40 mg capsule 1 capsule 30 minutes before morning meal Orally Once a day for 30 days - rosuvastatin (CRESTOR) 20 mg tablet Take 20 mg by mouth. - citalopram (CELEXA) 20 mg tablet Take 1 tablet by mouth once daily. - atorvastatin (LIPITOR) 20 mg tablet Take 1 tablet by mouth once daily. - lisinopril (PRINIVIL) 20 mg tablet Take 1 tablet by mouth once daily. Problem List As Of Date 08/05/2024 Noted Resolved Leucocytosis [D72.829] 10/06/2014 Dehydration [E86.0] 10/06/2014 Encounter Status:Closed by MICAELA MONROY on 08/05/24 Normal [facility] Urology Office/Clinic Noteon 07-24-2024 Urology Office/Clinic Note Urology Office/Clinic Note Chief Complaint f/u w/ KUB & RAFAEL HPI Staff KML pt here for f/u w/ KUB and RAFAEL. Previous dx: kidney stones, vaginal atrophy, UTI sxs, personal hx of kidney stones, female bladder prolapse. *Started on Estrace cream at prior OV S/p L ESWL, Cysto/L stent placement 05/24/23. S/p Cysto, L RPG, URS with laser litho/stone extraction, stent placement, incision of calyceal diverticulum 07/12/23. S/p Cysto, L stent removal 07/24/23. RAFAEL 08/08/[address] [facility] AP w con 01/16/24 [facility]. KUB/RAFAEL 04/30/24 [facility]. Dysuria: _at times Incomplete bladder emptying: _yes Hematuria: _no Frequency: _q3-4hrs Urgency: _yes Nocturia: _3x Stream: _normal, pt states at times she feels she needs to urinate and getting there she has low output. Leaking: _at times Post void dripping: _at times Wearing pads/ Depends: _pads Urge incontinence: _at times Stress incontinence: _yes Incontinence without Sensory Awareness: _no Abdominal pain: _yes Flank pain: _yes, lower right side Sexual complaints: _ History of Present Illness Tests reviewed: reviewed UA, RAFAEL, & KUB. I have reviewed the previous health record information and history for this patient from . I have reviewed and verified the staff HPI to be accurate for this encounter. There have been no associated fever, chills, flank pain, or blood in the urine. Denies any urinary infections since last encounter. Review of Systems PHQ Score Initial Depression Screen Score: 0 SCORE ROS - Provider Constitutional: denies weight loss, [...] HPI. Physical Exam Vitals & Measurements HR: 68(Peripheral) BP: 112/68 HT: 60 in HT: 152 cm WT: 57.3 kg WT: 126.325 lb BMI: 24.8 General Appearance: alert , no acute distress, well nourished, well developed female. Assessment/Plan 68 yo F prior PRW pt with history of kidney stones here for f/u. CBC/CMP *BUN 11.0 & Crea 0.66 1. [...] LLP, 7.7x6mm RUP SSD 8-10cm, all HU ~750 KUB/RAFAEL 04/30/24 - 7mm stone projecting over the pole of the Rt kidney, several small stones projecting over the superior pole of the Lt kidney S/p Cysto, Lt Ureteroscopy, stone extraction, stent placement 07/12/23 - Lbifid renal pelvis, cystocele to level of introitus S/p Cysto w/Lt Stent Removal 07/24/23 Pt states that she never had a metabolic workup- pt declined prior Pt states that she drinks a lot of water throughout the day, only drinking 3-4 bottles. Advised pt that she should drink more water to make 2.5 L UOP/day. Counseled pt on the stone prevention dietary modifications. Discussed imaging results with pt- right stone stable, no new stones on left. Counseled pt on the tx options with pt: observation vs URS vs ESWL. Pt states that she would like to have ESWL done again to treat her current stone burden, did well last time Follow up with R ESWL. All questions/concerns were discussed. Pt to call the office if she encounters any issues prior. Pt acknowledges understanding. -Will schedule Rt ESWL (september per pt) The procedure risks, benefits, details and treatment alternatives have been discussed with the patient. These include blood in the urine, infection, bleeding around the kidney, kidney bruising, inability to break up the stone, need for blood transfusion, blockage from stone fragments, and need for additional procedures, among others. Full informed consent has been obtained. Will order General anesthesia. -Will need Plavix held preop, elevated risks discussed 2. Vaginal atrophy (N95.2: Postmenopausal atrophic vaginitis) Pt was started on Estrogen Cream 0.1 mg/g at the time of her last OV. Denies any bothersome SE's. -Pt would like to cont without changes 3. Frequency of urination (R35.0: Frequency of micturition) Pt states that she has frequency, every 2-3 hours. Advised pt that this is normal for the amount of water she drinks. Advised pt that there is medications to help with this but there are risks of retention with this. Pt states that she would like to hold off on any new med. Cystocele likely contributing as well PVR low -Cont sxs monitoring, timed voids, kegels 4. UTI symptoms (R39.9: Unspecified symptoms and signs involv (more content not included)... Normal [facility] Comment on above: Result Comment: Elec tronically Signed By: Oren BOB, Elizabeth Brown\.br\Date and Time Signed: 07/24/24 10:06 EST\.br\Electronically Co-Signed By: Shahana Mazariegos\.br\Date and Time Co-Signed: 07/24/24 09:51 EST POCT EKGOrdered By: Clover Wyman on 07-01-2024 [facility] 05-31-2024 [facility] Telephone ([facility]) SLY COY ([id number]) 1955 F Date Time Provider Department 05/31/24 MICAELA MONROY [facility] During your visit today, we recorded the following information about you: Compa Tavares 05/31/2024 4:04 PM Addendum For documentation purpose- Left a detail message for the patient to schedule an appointment with Dr. Monroy (40 mins slot). Referral from [facility] scanned. Thank you Allergies As of Date: 05/31/2024 (No Known Allergies) Date Reviewed: 10/21/2014 Reviewed by: Lovely Weinstein - Fully Assessed Prescriptions as of 07/05/2024 - citalopram (CELEXA) 20 mg tablet Take 1 tablet by mouth once daily. - atorvastatin (LIPITOR) 20 mg tablet Take 1 tablet by mouth once daily. - lisinopril (PRINIVIL) 20 mg tablet Take 1 tablet by mouth once daily. Problem List As Of Date 05/31/2024 Noted Resolved Leucocytosis [D72.829] 10/06/2014 Dehydration [E86.0] 10/06/2014 Encounter Status:Closed by COMPA TAVARES on 05/31/24 Normal [facility] Campy coli+jejuni BD MaxOrde red By: Himanshu Borjas on 05-31-2024 C. coli+jejuni tuf gene DOMONIQUE+probe Ql (Stl) Campy coli+jejuni BD Max Negative [facility] Comment on above: Campylobacter test i ncludes C. jejuni and C. coli. Clostridioides difficile tox in B tcdB gene [Presence] in Stool by DOMONIQUE with probe deteOrdered By: Himanshu Borjas on 05-31-2024 C. difficile toxin B tcdB gene DOMONIQUE+probe Ql (Stl) Clostridioides difficile toxin B tcdB gene [Presence] in Stool by DOMONIQUE with probe dete Negative [facility] Comment on above: Testing performed by RT-PCR Clostridium Difficileon 05-11 Clostridium Difficile Negative Normal Negative [facility] Comment on above: Result Comment: Test ing performed by RT-PCR PERFORMED BY: [place] [address] PATHOLOGIST EDUCATION SPECIALIST NAKIA RUBIN M.D. Performed By: #### S TCYRPTOAG, GIARDIA #### [facility] , #### ENT BACT PANEL, OVP, CDT #### [address] Cryptosporidium Antigen Stoo danny 05-31-2024 Cryptosporidium Antigen Stool Negative Normal Negative [facility] Comment on above: Performed By: #### S TCYRPTOAG, GIARDIA #### [facility] , #### ENT BACT PANEL, OVP, CDT #### [facility] [address] Cryptosporidium parv+homin B D MaxOrdered By: Himanshu Borjas on 05-31-2024 C. parvum+hominis DNA DOMONIQUE+probe Ql (Stl) Cryptosporidium parv+homin BD Max Negative [facility] Comment on above: Cryptosporidium test includes C. hominis and C. parvum. Cryptosporidium sp Ag [Prese nce] in Stool by ImmunoassayOrdered By: Himanshu Borjas on 05-31-2024 Cryptosporidium sp Ag IA Ql (Stl) Cryptosporidium sp Ag [Presence] in Stool by Immunoassay Negative [facility] Entamoeba histolytica BD Max Ordered By: Himanshu Borjas on 05-31-2024 E. histolytica DNA DOMONIQUE+probe Ql (Stl) Entamoeba histolytica BD Max Negative [facility] Comment on above: Testing performed by RT-PCR Giardia Lamblia Ag EIA Stool on 05-31-2024 Giardia Lamblia Ag EIA Stool Negative Normal Negative [facility] Comment on above: Result Comment: Perf ormed at: - [facility] [address] [id number] Tankman: Nehemias Pollard PhD, Phone: [phone] PERFORMED BY: [place] [address] PATHOLOGIST EDUCATION SPECIALIST NAKIA RUBIN M.D. Performed By: #### S TCYRPTOAG, GIARDIA #### [facility] , #### ENT BACT PANEL, OVP, CDT #### [address] Giardia sidhu BD MaxOrdered By : Himanshu Borjas on 05-31-2024 G. lamblia DNA DOMONIQUE+probe Ql (Stl) Giardia sidhu BD Max Negative [facility] Giardia lamblia Ag [Presence ] in Stool by ImmunoassayOrdered By: Himanshu Borjas on 05-31-2024 G. lamblia Ag IA Ql (Stl) Giardia lamblia Ag [Presence] in Stool by Immunoassay Negative [facility] Comment on above: Performed at: [address] [id number] Director: Nehemias Pollard PhD, Phone: [phone] Ova and Parasite Panelon Cryptosporidium (C.hominis+par Negative Normal Negative [facility] Comment on above: Result Comment: Cryp tosporidium test includes C. hominis and C. parvum. Performed By: #### S TCYRPTOAG, GIARDIA #### [facility] , #### ENT BACT PANEL, OVP, CDT #### [address] Entamoeba histolytica Negative Normal Negative [facility] Comment on above: Result Comment: Test ing performed by RT-PCR PERFORMED BY: [place] [address] PATHOLOGIST EDUCATION SPECIALIST NAKIA RUBIN M.D. Performed By: #### S TCYRPTOAG, GIARDIA #### [facility] , #### ENT BACT PANEL, OVP, CDT #### [address] Giardia lamblia Negative Normal Negative [facility] Comment on above: Performed By: #### S TCYRPTOAG, GIARDIA #### [facility] , #### ENT BACT PANEL, OVP, CDT #### [address] Salmonellosis BD MaxOrdered By: Himanshu Borjas on 05-31-2024 Salmonella sp spaO gene DOMONIQUE+probe Ql (Stl) Salmonella sp spaO gene [Presence] in Stool by DOMONIQUE with probe detection Negative [facility] Comment on above: Testing performed by RT-PCR Shigella Tox 1+2 BD MaxOrder ed By: Himanshu Borjas on 05-31-2024 E. coli stx1+stx2 genes DOMONIQUE+probe Ql (Stl) Escherichia coli Stx1 and Stx2 toxin stx1+stx2 genes [Presence] in Stool by DOMONIQUE with Negative [facility] Shigellosis BD MaxOrdered By : Himanshu Borjas on 05-31-2024 Shigella species+EIEC invasion plasmid antigen H ipaH gene DOMONIQUE+probe Ql (Stl) Shigella species+EIEC invasion plasmid antigen H ipaH gene [Presence] in Stool by DOMONIQUE Negative [facility] Comment on above: Shigella sp. test in cludes Shigella species and Enteroinvasive E. coli (EIEC). Stool Bacterial Panelon 05-11 Campylobacter Negative Normal Negative [facility] Comment on above: Result Comment: Camp ylobacter test includes C. jejuni and C. coli. Performed By: #### S TCYRPTOAG, GIARDIA #### [facility] , #### ENT BACT PANEL, OVP, CDT #### [address] Salmonella Species Negative Normal Negative [facility] Comment on above: Result Comment: Test ing performed by RT-PCR PERFORMED BY: [place] [address] PATHOLOGIST EDUCATION SPECIALIST NAKIA RUBIN M.D. Performed By: #### S TCYRPTOAG, GIARDIA #### [facility] , #### ENT BACT PANEL, OVP, CDT #### [address] Shiga Toxin (E coli O157+oth) Negative Normal Negative [facility] Comment on above: Performed By: #### S TCYRPTOAG, GIARDIA #### [facility] , #### ENT BACT PANEL, OVP, CDT #### [address] Shigella Species Negative Normal Negative [facility] Comment on above: Result Comment: Shig rylie sp. test includes Shigella species and Enteroinvasive E. coli (EIEC). Performed By: #### S TCYRPTOAG, GIARDIA #### [facility] , #### ENT BACT PANEL, OVP, CDT #### [facility] [address] [place] [id number] [facility] CT abdomen pelvis w conon CT abdomen pelvis w con [facility] Main [place] [address] [place] [address] CT Scan Report Signed Patient: Sly Coy MR#: [id number] : 1955 Acct:[id number] Age/Sex: 68 / F ADM Date: 01/16/24 Loc: CT Room: Type: [facility] Attending Dr: Himanshu Borjas APRN Copies to: iHmanshu Borjas APRN Ordering Provider: Himanshu Borjas APRN Date of Service: 01/16/24 CT/CT abdomen pelvis w con: R10.9 - Unspecified abdominal pain CT ABDOMEN AND PELVIS WITH INTRAVENOUS CONTRAST: CLINICAL HISTORY: Generalized abdominal pain for 2 years COMPARISON: None TECHNIQUE: Spiral images were obtained through the abdomen and pelvis following the administration of intravenous contrast. This CT exam was performed using one or more following dose reduction techniques: Automated exposure control, adjustment of the mA and/or kV according to patient size, or use of iterative reconstruction technique. FINDINGS: Lung Bases: [Mild atelectasis.] Organs:Liver gallbladder portal vein spleen pancreas and adrenal glands appear unremarkable. Cystic changes involving both kidneys. Bilateral nephrolithiasis, largest stone measuring 4 mm involving the right kidney. Abdominal aorta appears normal in caliber.[ GI: Small hiatal hernia. Distal stomach is grossly unremarkable. Small bowel appears nondilated. No acute colonic abnormality.[ Pelvis:[Urinary bladder is grossly unremarkable. Uterus has been removed. No adnexal mass.] Peritoneum/Retroperi toneum:No free air, free fluid or lymphadenopathy.[ Abd wall/Bones:Abdominal wall demonstrates no acute findings. Osseous structures demonstrate degenerative change.[ CT/CT abdomen pelvis w con IMPRESSION: Bilateral nephrolithiasis. No obstructive uropathy. No acute process. Impression dictated by: Dallas Lowe Jr., D.O.01/16/2024 5:44 PM Dictation Location: [facility]15 Transcribed By: [facility] 01/16/241743 Dictated By: Dallas Lowe Jr, DO 01/16/241741 Signed By: 01/16/241743 Normal [facility] Creatinineon 01-16-2024 GFR/1.73 sq M.predicted MDRD (S/P/Bld) [Vol rate/Area] mL/min/{1.73_m2} Normal [facility] Comment on above: Result Comment: PERF ORMED BY: [place] [address] PATHOLOGIST EDUCATION SPECIALIST TONY WONG M.D. Performed By: #### C REAT, BUN #### [address] Creatinine [Mass/volume] in Serum or PlasmaOrdered By: Himanshu Borjas on 01-16-2024 Creatinine [Mass/Vol] 0.84 mg/dL Normal 0.60-1.20 [facility] Comment on above: Performed By: #### C REAT, BUN #### [address] No Panel InformationOrdered By: Himanshu Borjas on 01-16-2024 Estimated GFR (CKD-EPI) > 60.0 mL/Min [facility] Creatinine Clearance (Chem N/A [facility] Urea nitrogen [Mass/volume] in Serum or PlasmaOrdered By: Himanshu Borjas on 01-16-2024 Urea nitrogen [Mass/Vol] 15 mg/dL Normal 7-25 [facility] Comment on above: Performed By: #### C REAT, BUN #### [facility] [address] [place] [address] 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D.11/14/2023 2:00 PM Dictation Location: [place] [address] Transcribed By: JAVIER 11/14/23 1400 Dictated By: Arnoldo Souza II, MD 11/14/23 1358 Signed By: 11/14/23 1400 Normal [facility] Basic Metabolic Profon 01-23 Anion gap [Moles/Vol] 10 mmol/L Normal -17 [facility] Comment on above: Performed By: #### B MP, CBC #### [facility] [address] [facility] [place] [address] Tankman: Brooks Almazan MD BUN/CRE Ratio 30 High 9-20 [facility] Comment on above: Performed By: #### B MP, CBC #### [facility] [address] [place] [address] Tankman: Brooks Almazan MD Calcium [Mass/Vol] 8.9 mg/dL Normal 8.6-10.4 [facility] Comment on above: Performed By: #### B MP, CBC #### [facility] [address] [place] [address] Tankman: Brooks Almazan MD Chloride [Moles/Vol] 104 mmol/L Normal 98-107 [facility] Comment on above: Performed By: #### B MP, CBC #### [facility] [address] [place] [address] Tankman: Brooks Almazan MD CO2 [Moles/Vol] 27 mmol/L Normal 20-31 [facility] Comment on above: Performed By: #### B MP, CBC #### [facility] [address] [place] [address] Tankman: Brooks Almazan MD Creatinine [Mass/Vol] 0.5 mg/dL Normal 0.5-0.9 [facility] Comment on above: Performed By: #### B GAL, CBC #### [facility] [address] [facility] [place] [address] Tankman: Brooks Almazan MD GFR/1.73 sq M.predicted among non-blacks MDRD (S/P/Bld) [Vol rate/Area] mL/min/{1.73_m2} Normal >60 [facility] Comment on above: Result Comment: These results [...] renal tubular secretion. Performed By: #### B GAL, CBC #### [facility] [facility] [place] [address] Tankman: Brooks Almazan MD Glucose [Mass/Vol] 97 mg/dL Normal 70-99 [facility] Comment on above: Performed By: #### B GAL, CBC #### [facility] [facility] [place] [address] Tankman: Brooks Almazan MD Potassium [Moles/Vol] 4.8 mmol/L Normal 3.7-5.3 [facility] Comment on above: Result Comment: SPEC IMEN SLIGHTLY HEMOLYZED, RESULTS MAY BE ADVERSELY AFFECTED. Performed By: #### B GAL, CBC #### [facility] [facility] [place] [address] Tankman: Brooks Almazan MD Sodium [Moles/Vol] 141 mmol/L Normal 135-144 [facility] Comment on above: Performed By: #### B GAL, CBC #### [facility] [address] [facility] [place] [address] Tankman: Brooks Almazan MD Urea nitrogen [Mass/Vol] 15 mg/dL Normal 8-23 [facility] Comment on above: Performed By: #### B MP, CBC #### [facility] [address] [facility] [place] [address] Tankman: Brooks Almazan MD CBCon 01-23-2023 Erythrocyte distribution width (RBC) [Ratio] 12.4 % Normal 11.8-14.4 [facility] Comment on above: Performed By: #### B MP, CBC #### [facility] [place] [address] Tankman: Brooks Almazan MD Hematocrit (Bld) [Volume fraction] 40.3 % Normal 36.3-47.1 [facility] Comment on above: Performed By: #### B MP, CBC #### [facility] [address] [place] [address]. [place] [address] Tankman: Brooks Almazan MD Hemoglobin (Bld) [Mass/Vol] 13.1 g/dL Normal 11.9-15.1 [facility] Comment on above: Performed By: #### B MP, CBC #### [facility] [facility] [place] [address] Tankman: Brooks Almazan MD MCH (RBC) [Entitic mass] 30.0 pg Normal 25.2-33.5 [facility] Comment on above: Performed By: #### B MP, CBC #### [facility] [facility] [place] [address] Tankman: Brooks Almazan MD MCHC (RBC) [Mass/Vol] 32.5 g/dL Normal 28.4-34.8 [facility] Comment on above: Performed By: #### B MP, CBC #### [facility] [place] [address] Tankman: Brooks Almazan MD MCV (RBC) [Entitic vol] 92.4 fL Normal 82.6-102.9 [facility] Comment on above: Performed By: #### B MP, CBC #### [facility] [place] [address] Tankman: Brooks Almazan MD NRBC Automated 0.0 per 100 WBC Normal 0.0 [facility] Comment on above: Performed By: #### B MP, CBC #### [facility] [address] [place] [address]. [place] [address] Tankman: Brooks Almazan MD Platelet mean volume (Bld) [Entitic vol] 9.3 fL Normal 8.1-13.5 [facility] Comment on above: Performed By: #### B MP, CBC #### [facility] [address] [place] [address]. [place] [address] Tankman: Broosk Almazan MD Platelets (Bld) [#/Vol] 234 10*3/uL Normal 138-453 [facility] Comment on above: Performed By: #### B MP, CBC #### [facility] [address] [place] [address]. [place] [address] Tankman: Brooks Almazan MD RBC (Bld) [#/Vol] 4.36 10*6/uL Normal 3.95-5.11 [facility] Comment on above: Performed By: #### B MP, CBC #### [facility] [address] [place] [address]. [place] [address] Tankman: Brooks Almazan MD WBC (Bld) [#/Vol] 7.1 10*3/uL Normal 3.5-11.3 [facility] Comment on above: Performed By: #### B MP, CBC #### [facility] [address] [place] [address] Tankman: Brooks Almazan MD CBC AUTO DIFFon 11-27-2021 BASO # 0.1 103/ul Normal 0.0-0.1 [facility] Comment on above: Performed By: #### C BC #### [facility] [address] [address] [address] Liliam Sanderson Basophils/100 WBC (Bld) 0.7 % Normal 0.2-2.0 [facility] Comment on above: Performed By: #### C BC #### [facility] [address] [place] [address] Dr. Liliam Sanderson EO # 0.2 103/ul Normal 0.0-0.7 [facility] Comment on above: Performed By: #### C BC #### [facility] [address] [place] [address] Dr. Liliam Sanderson Eosinophils/100 WBC (Bld) 2.2 % Normal 0.9-7.0 [facility] Comment on above: Performed By: #### C BC #### [facility] [address] [place] [address] Dr. Liliam Sanderson Erythrocyte distribution width (RBC) [Ratio] 12.0 % Normal 11.0-15.0 [facility] Comment on above: Performed By: #### C BC #### [facility] [address] [place] [address] Dr. Liliam Sanderson Hematocrit (Bld) [Volume fraction] 40.6 % Normal 36.0-48.0 [facility] Comment on above: Performed By: #### C BC #### [facility] [address] [place] [address] Dr. Liliam Sanderson Hemoglobin (Bld) [Mass/Vol] 13.3 g/dL Normal 12.0-16.0 [facility] Comment on above: Performed By: #### C BC #### [facility] [address] [place] [address] Dr. Liliam Sanderson IG # 0.03 10e3/ul Normal 0.00-0.03 [facility] Comment on above: Performed By: #### C BC #### [facility] [address] [place] [address] Dr. Liliam Sanderson IG % 0.3 % Normal 0.0-0.5 [facility] Comment on above: Performed By: #### C BC #### [facility] [address] [place] [address] Dr. Liliam Sanderson LYMPH # 3.2 103/ul Normal 1.2-3.8 [facility] Comment on above: Performed By: #### C BC #### [facility] [address] [place] [address] Dr. Liliam Sanderson Lymphocytes/100 WBC (Bld) 30.7 % Normal 20.5-60.0 [facility] Comment on above: Performed By: #### C BC #### [facility] [address] [place] [address] Dr. Liliam Sanderson MANUAL DIFF REQ NO Normal [facility] Comment on above: Performed By: #### C BC #### [facility] [address] [place] [address] Dr. Liliam Sanderson MCH (RBC) [Entitic mass] 30.2 pg Normal 26.7-34.0 [facility] Comment on above: Performed By: #### C BC #### [facility] [address] [place] [address] Dr. Liliam Sanderson MCHC (RBC) [Mass/Vol] 32.8 g/dL Normal 29.9-35.2 [facility] Comment on above: Performed By: #### C BC #### [facility] [address] [place] [address] Dr. Liliam Sanderson MCV (RBC) [Entitic vol] 92.1 fL Normal 81.0-99.0 [facility] Comment on above: Performed By: #### C BC #### [facility] [address] [place] [address] Dr. Liliam Sanderson MONO # 0.8 103/ul Normal 0.3-0.8 [facility] Comment on above: Performed By: #### C BC #### [facility] [address] [place] [address] Dr. Liliam Sanderson Monocytes/100 WBC (Bld) 7.5 % Normal 1.7-12.0 [facility] Comment on above: Performed By: #### C BC #### [facility] [address] [place] [address] Dr. Liliam Sanderson NEUT # 6.1 103/ul Normal 1.4-6.5 [facility] Comment on above: Performed By: #### C BC #### [facility] [address] [place] [address] Dr. Liliam Sanderson Neutrophils/100 WBC (Bld) 58.6 % Normal 43.0-75.0 [facility] Comment on above: Performed By: #### C BC #### [facility] [address] [place] [address] Dr. Liliam Sanderson Platelet mean volume (Bld) [Entitic vol] 8.8 fL Critically low 9.5-13.5 [facility] Comment on above: Performed By: #### C BC #### [facility] [address] [place] [address] Dr. Liliam Sanderson PLT 264 103/ul Normal 150-[address] [facility] Comment on above: Performed By: #### C BC #### [facility] [address] [place] [address] Dr. Liliam Sanderson RBC 4.41 106/ul Normal 4.20-5.40 [facility] Comment on above: Performed By: #### C BC #### [facility] [address] [place] [address] Dr. Liliam Sanderson WBC 10.4 103/ul Normal 4.0-11.0 [facility] Comment on above: Performed By: #### C BC #### [facility] [address] [place] [address] Dr. Liliam Sanderson LIPID PROFILEon 11-27-2021 CHOL-HDL RATIO NORM SEE BELOW Normal [facility] Comment on above: Result Comment: 3.3 - 4.4 LOW RISK 4.4 - 7.1 AVERAGE RISK 7.1 - 11.0 MODERATE RISK >11.0 HIGH RISK Performed By: #### C MP, LIPID #### [facility] [address] [address] [address] Liliam Sanderson Cholesterol [Mass/Vol] 204 mg/dL Critically high <=200 [facility] Comment on above: Performed By: #### C MP, LIPID #### [facility] [address] [address] [address] Liliam Sanderson Cholesterol in HDL [Mass/Vol] 46 mg/dL Normal 40-60 [facility] Comment on above: Performed By: #### C MP, LIPID #### [facility] [address] [address] [address] Liliam Sanderson Cholesterol in LDL [Mass/Vol] 125.4 mg/dL Normal [facility] Comment on above: Performed By: #### C MP, LIPID #### [facility] [address] [address] [address] Liliam Sanderson Cholesterol.total/Melony sterol in HDL [Mass ratio] 4.4 {ratio} Normal [facility] Comment on above: Performed By: #### C MP, LIPID #### [facility] [address] [address] [address] Liliam Sanderson HDL NORMAL > or = 60 mg/dl - LOW CARDIOVASCULAR RISK <40 mg/dl - HIGH CARDIOVASCULAR RISK Normal [facility] Comment on above: Performed By: #### C MP, LIPID #### [facility] [address] [address] [address] Liliam Sanderson LDL CALC NORMAL SEE BELOW Normal [facility] Comment on above: Result Comment: <100 mg/dl OPTIMAL 100 - 129 mg/dl NEAR OR ABOVE OPTIMAL 130 - 159 mg/dl BORDERLINE HIGH 160 - 189 mg/dl HIGH >190 mg/dl VERY HIGH Performed By: #### C MP, LIPID #### [facility] [address] [place] [address] Dr. Liliam Sanderson Triglyceride [Mass/Vol] 163 mg/dL Critically high <=150 [facility] Comment on above: Performed By: #### C MP, LIPID #### [facility] [address] [place] [address] Dr. Liliam Sanderson VLDL CALC 32.6 mg/dL Normal [facility] Comment on above: Performed By: #### C MP, LIPID #### [facility] [address] [place] [address] Dr. Liliam Sanderson PROF 14(COMP METB)on 022 Albumin [Mass/Vol] 4.1 g/dL Normal 3.4-5.0 [facility] Comment on above: Performed By: #### C MP, LIPID #### [facility] [address] [place] [address] Dr. Liliam Sanderson Albumin/Globulin [Mass ratio] 1.2 {ratio} Normal [facility] Comment on above: Performed By: #### C MP, LIPID #### [facility] [address] [place] [address] Dr. Liliam Sanderson ALP [Catalytic activity/Vol] 61 U/L Normal 46-116 [facility] Comment on above: Performed By: #### C MP, LIPID #### [facility] [address] [place] [address] Dr. Liliam Sanderson ALT [Catalytic activity/Vol] 20 U/L Normal 14-59 [facility] Comment on above: Performed By: #### C MP, LIPID #### [facility] [address] [place] [address] Dr. Liliam Sanderson Anion gap [Moles/Vol] 11.4 mmol/L Normal [facility] Comment on above: Performed By: #### C MP, LIPID #### [facility] [address] [place] [address] Dr. Liliam Sanderson AST [Catalytic activity/Vol] 12 U/L Critically low 15-37 [facility] Comment on above: Performed By: #### C MP, LIPID #### [facility] [address] [place] [address] Dr. Liliam Sanderson Bilirubin [Mass/Vol] 0.5 mg/dL Normal 0.2-1.0 [facility] Comment on above: Performed By: #### C MP, LIPID #### [facility] [address] [place] [address] Dr. Liliam Sanderson Calcium [Mass/Vol] 8.9 mg/dL Normal 8.5-10.1 [facility] Comment on above: Performed By: #### C MP, LIPID #### [facility] [address] [place] [address] Dr. Liliam Sanderson Chloride [Moles/Vol] 102 mmol/L Normal 98-107 [facility] Comment on above: Performed By: #### C MP, LIPID #### [facility] [address] [place] [address] Dr. Liliam Sanderson CO2 [Moles/Vol] 28.3 mmol/L Normal 21.0-32.0 [facility] Comment on above: Performed By: #### C MP, LIPID #### [facility] [address] [place] [address] Dr. Liliam Sanderson Creatinine [Mass/Vol] 0.66 mg/dL Normal 0.55-1.02 [facility] Comment on above: Performed By: #### C MP, LIPID #### [facility] [address] [place] [address] Dr. Liliam Sanderson EGFR-AF TONGAN >60 Normal >=60 [facility] Comment on above: Performed By: #### C MP, LIPID #### [facility] [address] [place] [address] Dr. Liliam Sanderson EGFR-NON AF TONGAN >60 Normal >=60 [facility] Comment on above: Performed By: #### C MP, LIPID #### [facility] [address] [place] [address] Dr. Liliam Sanderson Globulin (S) [Mass/Vol] 3.4 g/dL Normal T [facility] Comment on above: Performed By: #### C MP, LIPID #### [facility] [address] [place] [address] Dr. Liliam Sanderson Glucose [Mass/Vol] 100 mg/dL Normal 74-106 [facility] Comment on above: Performed By: #### C MP, LIPID #### [facility] [address] [place] [address] Dr. Liliam Sanderson Potassium [Moles/Vol] 3.7 mmol/L Normal 3.5-5.1 [facility] Comment on above: Performed By: #### C MP, LIPID #### [facility] [address] [place] [address] Dr. Liliam Sanderson Protein [Mass/Vol] 7.5 g/dL Normal 6.4-8.2 [facility] Comment on above: Performed By: #### C MP, LIPID #### [facility] [address] [place] [address] Dr. Liliam Sanderson Sodium [Moles/Vol] 138 mmol/L Normal 136-145 [facility] Comment on above: Performed By: #### C MP, LIPID #### [facility] [address] [place] [address] Dr. Liliam Sanderson Urea nitrogen [Mass/Vol] 14.0 mg/dL Normal 7.0-18.0 [facility] Comment on above: Performed By: #### C MP, LIPID #### [facility] [address] [place] [address] Dr. Liliam Sanderson Urea nitrogen/Creatinine [Mass ratio] 21.2 mg/mg Normal [facility] Comment on above: Performed By: #### C MP, LIPID #### [facility] [address] [place] [address] Dr. Liliam Sanderson Vital Signs Date Time Vital Sign Value Performing Clinician Facility 09-10-2024 15:01-0500 Body height 152.4 cm [facility] 09-10-2024 15:01-0500 Body mass index (BMI) [Ratio] 23.2 kg/m2 [facility] 09-10-2024 15:01-0500 Body weight 53.9 kg [facility] 08-27-2024 13:52-0500 Blood Pressure Location JASMIN LANEAMANKRA [facility] 08-27-2024 13:52-0500 Diastolic blood pressure 78 mm[Hg] JASMINYASMINE MCNAMARAAH-AMANKRA [facility] 08-27-2024 13:52-0500 Heart rate 66 /min JASMIN NKANSAH-AMANKRA [facility] 08-27-2024 13:52-0500 Systolic blood pressure 140 mm[Hg] JASMIN NKANSAH-AMANKRA [facility] 08-05-2024 11:05-0500 Body mass index (BMI) [Ratio] 22.3 kg/m2 Micaela Monroy MD Work Phone: [facility] 08-05-2024 11:05-0500 Body temperature 97 [degF] Micaela Monroy MD Work Phone: [facility] 08-05-2024 11:05-0500 Body weight 53.52 kg Micaela Monroy MD Work Phone: [facility] 08-05-2024 11:05-0500 Diastolic blood pressure 45 mm[Hg] Micaela Monroy MD Work Phone: [facility] 08-05-2024 11:05-0500 Heart rate 56 /min Micaela Monroy MD Work Phone: [facility] 08-05-2024 11:05-0500 SaO2% (BldA) [Mass fraction] 98 % Micaela Monroy MD Work Phone: [facility] 08-05-2024 11:05-0500 Systolic blood pressure 108 mm[Hg] Micaela Monroy MD Work Phone: [facility] 07-30-2024 15:32-0500 Body height 152.4 cm [facility] 07-30-2024 15:32-0500 Body mass index (BMI) [Ratio] 23.2 kg/m2 [facility] 07-30-2024 15:32-0500 Body weight 53.97 kg [facility] 07-30-2024 15:32-0500 Diastolic blood pressure 76 mm[Hg] [facility] 07-30-2024 15:32-0500 Heart rate 68 /min [facility] 07-30-2024 15:32-0500 Systolic blood pressure 132 mm[Hg] [facility] 07-24-2024 08:55-0500 Blood Pressure Location Elizabeth Lue [facility] 07-24-2024 08:55-0500 Diastolic blood pressure 68 mm[Hg] Elizabeth Lue [facility] 07-24-2024 08:55-0500 Heart rate 68 /min Elizabeth Lue [facility] 07-24-2024 08:55-0500 Systolic blood pressure 112 mm[Hg] Elizabeth Lue [facility] 07-01-2024 11:39-0500 Body height 154.9 cm Joey Bolden MD Work Phone: [facility] 07-01-2024 11:39-0500 Body mass index (BMI) [Ratio] 22.98 kg/m2 Joey Bolden MD Work Phone: [facility] 07-01-2024 11:39-0500 Body weight 55.16 kg Joey Bolden MD Work Phone: [facility] 07-01-2024 11:39-0500 Diastolic blood pressure 72 mm[Hg] Joey Bolden MD Work Phone: [facility] 07-01-2024 11:39-0500 Heart rate 60 /min Joey Bolden MD Work Phone: [facility] 07-01-2024 11:39-0500 SaO2% (BldA) [Mass fraction] 100 % Joey Bolden MD Work Phone: [facility] 07-01-2024 11:39-0500 Systolic blood pressure 140 mm[Hg] Joey Bolden MD Work Phone: [facility] 05-30-2024 09:26-0500 Body height 152.4 cm [facility] 05-30-2024 09:26-0500 Body mass index (BMI) [Ratio] 24 kg/m2 [facility] 05-30-2024 09:26-0500 Body weight 55.96 kg [facility] 05-30-2024 09:26-0500 Diastolic blood pressure 68 mm[Hg] [facility] 05-30-2024 09:26-0500 Heart rate 75 /min [facility] 05-30-2024 09:26-0500 Systolic blood pressure 122 mm[Hg] [facility] 03-05-2024 15:04-0400 Body height 152.4 cm ALIGNMENT SPECIALISTKhushi Martínez Work Phone: [facility] 03-05-2024 15:04-0400 Body mass index (BMI) [Ratio] 24.4 kg/m2 ALIGNMENT SPECIALISTKhushi Martínez Work Phone: [facility] 03-05-2024 15:04-0400 Body weight 56.69 kg ALIGNMENT SPECIALISTKhushi Martínez Work Phone: [facility] 01-02-2024 14:02-0400 Body height 152.4 cm ALIGNMENT SPECIALISTKhushi Martínez Work Phone: [facility] 01-02-2024 14:02-0400 Body mass index (BMI) [Ratio] 25.4 kg/m2 ALIGNMENT SPECIALISTKhushi Martínez Work Phone: [facility] 01-02-2024 14:02-0400 Body weight 59 kg RISA Martínez Work Phone: [facility] 10-26-2023 11:18-0400 Body height 153.67 cm [facility] 10-26-2023 11:18-0400 Body mass index (BMI) [Ratio] 25 kg/m2 [facility] 10-26-2023 11:18-0400 Body weight 58.96 kg [facility] 05-10-2023 09:48-0400 Blood Pressure Location Elizabeth Lue [facility] 05-10-2023 09:48-0400 Diastolic blood pressure 67 mm[Hg] Elizabeth Lue [facility] 05-10-2023 09:48-0400 Heart rate 73 /min Elizabeth Lue [facility] 05-10-2023 09:48-0400 Respiratory rate 16 /min Elizabeth Lue [facility] 05-10-2023 09:48-0400 Systolic blood pressure 101 mm[Hg] Elizabeth Lue [facility] 02-14-2023 14:00-0400 Body height 153.67 cm iHmanshu Borjas Other [facility] [employer] Other 02-14-2023 14:00-0400 Body mass index (BMI) [Ratio] 24.78 kg/m2 Himanshu Borjas Other [employer] Other 02-14-2023 14:00-0400 Body weight 58.51 kg Himanshu Borjas Other [employer] Other 02-14-2023 14:00-0400 Diastolic blood pressure 84 mm[Hg] Himanshu Scovanner Other [employer] Other 02-14-2023 14:00-0400 Systolic blood pressure 142 mm[Hg] Himanshu Scovanner Other [employer] Other 11-15-2022 16:30-0400 Body height 153.67 cm Himanshu Scovanner Other [employer] Other 11-15-2022 16:30-0400 Body mass index (BMI) [Ratio] 26.27 kg/m2 Himanshu Scovanner Other [employer] Other 11-15-2022 16:30-0400 Body weight 62.05 kg Himanshu Scovanner Other [employer] Other 11-15-2022 16:30-0400 Diastolic blood pressure 76 mm[Hg] Himanshu Scovanner Other [employer] Other 11-15-2022 16:30-0400 Systolic blood pressure 128 mm[Hg] Himanshu Scovanner Other [employer] Other Encounters Encounter Date Encounter Type Care Provider Facility Start: 09-10-2024 End: 09-10-2024 ambulatory [facility] Work Phone: Start: 09-10-2024 End: 09-10-2024 Patient encounter procedure [facility] Work Phone: Start: 08-27-2024 End: 08-27-2024 ambulatory JASMIN MARIA ALEJANDRA-AMANKRA Facility:[facility] Start: 08-27-2024 End: 08-27-2024 Patient encounter procedure JASMIN LANE-AMFRANKIRA [facility] Start: 08-13-2024 End: 08-13-2024 ambulatory JASMIN BHANDARI Facility:[facility] Start: 08-13-2024 End: 08-13-2024 Patient encounter procedure JASMIN BHANDARI [facility] Start: 08-07-2024 End: 08-07-2024 Telephone encounter Concepción Murphy RN [facility] Comment on above: Surgical Or Dental C learance Start: 08-05-2024 End: 08-05-2024 [facility] Start: 08-05-2024 End: 08-05-2024 Patient encounter procedure Micaela Monroy MD Work Phone: General Surgery Comment on above: Hiatal hernia (Prima ry Dx) Start: 07-30-2024 End: 07-30-2024 ambulatory NON STAFF [facility] Work Phone: Start: 07-30-2024 End: 07-30-2024 Patient encounter procedure [facility] Work Phone: Start: 07-24-2024 ambulatory Elizabeth M. Lue Facility: [id number] Start: 07-24-2024 End: 07-24-2024 ambulatory Elizabeth M. Lue Facility:[facility] Start: 07-24-2024 End: 07-24-2024 Patient encounter procedure Elizabeth M. Lue [facility] Start: 07-01-2024 End: 07-01-2024 Office outpatient visit 25 minutes Joey Bolden MD Work Phone: [facility] Comment on above: Hx of right coronary artery stent placement (Primary Dx); Primary hypertension; Hyperlipidemia, unspecified hyperlipidemia type; Smoker Start: 07-01-2024 End: 07-01-[facility]24 [facility] Start: 06-28-2024 End: 06-28-2024 Telephone encounter Clover Wyman CMA [facility] Start: 05-31-2024 End: 05-31-2024 Telephone encounter Micaela Monroy MD Work Phone: Colorectal Surgery Start: 05-31-2024 End: 05-31-2024 Patient encounter procedure [facility] [place] Work Phone: Start: 05-31-2024 End: 05-31-2024 ambulatory Himanshu Borjas Facility:[facility] Start: 05-30-2024 End: 05-30-2024 ambulatory [facility] Work Phone: Start: 05-30-2024 End: 05-30-2024 Patient encounter procedure [facility] Work Phone: Start: 03-05-2024 End: 03-05-2024 ambulatory ALIGNMENT SPECIALIST Nadira Davidlim Work Phone: [facility] Work Phone: Start: 03-05-2024 End: 03-05-2024 Patient encounter procedure ALIGNMENT SPECIALIST Nadira Anglim Work Phone: [facility] Work Phone: Start: 02-01-2024 End: 02-01-2024 Refill Los Lee MD Work Phone: [facility] Comment on above: Med Refill Start: 01-30-2024 End: 01-30-2024 ambulatory [place] J Galea Facility:[facility] Start: 01-30-2024 End: 01-30-2024 Patient encounter procedure [place] J Galea [facility] Start: 01-24-2024 End: 01-24-2024 ambulatory Elizabeth Lott Facility: [facility] Start: 01-24-2024 End: 01-24-2024 Patient encounter procedure [facility] Start: 01-16-2024 End: 01-16-2024 Patient encounter procedure ALIGNMENT SPECIALIST Nadira Davidghada Work Phone: [facility] [place] Work Phone: Start: 01-16-2024 End: 01-16-2024 ambulatory ALIGNMENT SPECIALIST Nadira Davidlim Work Phone: [facility] Work Phone: Start: 01-02-2024 End: 01-02-2024 ambulatory ALIGNMENT SPECIALIST Nadira Hernandezlim Work Phone: [facility] Work Phone: Start: 01-02-2024 End: 01-02-2024 Patient encounter procedure ALIGNMENT SPECIALIST Nadira Davidlim Work Phone: [facility] Work Phone: Start: 12-08-2023 End: 12-08-[address]ÍNEZ [facility] Start: 11-14-2023 End: 11-14-2023 Patient encounter procedure ALIGNMENT SPECIALIST Nadira Davidlim Work Phone: [facility] [place] Work Phone: Start: 11-14-2023 End: 11-14-2023 ambulatory ALIGNMENT SPECIALIST Nadira Hernandezlim Work Phone: [facility] Work Phone: Start: 10-26-2023 End: 10-26-2023 ambulatory [facility] Work Phone: Start: 10-26-2023 End: 10-26-2023 Patient encounter procedure [facility] Work Phone: Start: 07-24-2023 End: 07-24-2023 Patient encounter procedure Elizabeth Lott [facility] Start: 07-05-2023 Refill Juan David sser ALIGNMENT SPECIALIST-[employer]ACH[employer] Work Phone: [facility] Comment on above: Med Refill Start: 05-10-2023 End: 05-10-2023 Patient encounter procedure Elizabeth Lott [facility] Start: 02-14-2023 End: 02-14-2023 ambulatory Himanshu Scbolaner Other [employer] Other Start: 02-14-2023 Office outpatient vi sit 15 minutes Himanshu Scovanner [facility] Start: 01-23-2023 End: 01-23-2023 [facility] Start: 11-15-2022 End: 11-15-2022 ambulatory Himanshu Scovanner Other [employer] Other Start: 11-15-2022 Office outpatient ne w 30 minutes Himanshu Scovanner [facility] Start: 09-30-2022 End: 09-30-2022 ambulatory [facility] Facility:[facility] Start: 06-21-2022 End: 06-24-2022 ambulatory CHANEL HARRELL [facility] Start: 06-21-2022 End: 06-23-2022 Subsequent hospital visit by physician [facility] [address] [facility] Comment on above: Chest pain, unspecif ied type; Dizziness; Abnormal stress ECG Start: 11-27-2021 End: 11-28-2021 ambulatory [facility] Facility:H1 Procedures Date Procedure Procedure Detail Performing Clinician Start: 07-01-2024 Ecg routine ecg w/le ast 12 lds w/i&r Joey Bolden MD Work Phone: Start: 07-01-2024 Follow-up visit Follow-up SHOBHA BOLDEN Start: 01-16-2024 Computed tomography of abdomen and pelvis with contrast RISA Martínez Work Phone: Start: 07-24-2023 Removal of ureteral stent [place] Toney Start: 07-12-2023 Ureteroscopy Elizabeth Lue Start: 05-24-2023 Extracorporeal shock wave lithotripsy of calculus of kidney Elizabeth Lue Start: 01-07-2023 Stented artery (finding) Elizabeth Lue Start: 07-10-2018 Hysterectomy JASMIN SPARKSSHARI Comment on above: *still has ovaries Start: 03-05-2009 Extracorporeal shock wave lithotripsy of [...] care Elizabeth Lue Comment on above: sling History of placement of stent for coronary artery disease Hx of right coronary artery stent placement Joey Bolden MD Work Phone: Plan of Treatment Date Care Activity Detail Author Start: 2030 RSV Vaccine (1 - 1-d ose 75+ series) RSV Vaccine (1 - 1-dose 75+ series) [facility] Start: 01-23-2026 Diabetes Screening Diabetes Screenin g [facility] Start: 07-01-2025 Adult BMI Screening Adult BMI Screen ing [facility] Start: 07-01-2025 Tobacco Screening Tobacco Screening [facility] Start: 12-07-2024 Screening for malign ant neoplasm of breast Mammogram Screening [facility] Start: 07-10-2024 Advance Directive Discussion Advance Directive Discussion [facility] Start: 07-01-2024 End: 07-01-2024 Patient encounter procedure 07/01/2024 12:00 PM EST Office Visit [facility] [address] [place] [id number] Joey Bolden MD [address] [place] [address] [facility] Start: 06-19-2024 Adult BMI Screening Adult BMI Screen ing [facility] Start: 06-19-2024 Tobacco Screening Tobacco Screening [facility] Start: 05-30-2024 Patient referral [facility] Work Phone: Start: 03-10-2024 Covid-19 Vaccine ( season) Covid-19 Vaccine ( season) [facility] Start: 03-10-2024 Influenza vaccination [facility] Start: 01-02-2024 Patient referral [facility] Work Phone: Start: 08-17-2023 Tobacco Counseling Tobacco Counselin g [facility] Start: 07-10-2023 Advance Directive Discussion Advance Directive Discussion [facility] Start: 03-10-2023 Influenza vaccination Influenza Vacc ine [facility] Start: 06-15-2022 Annual Wellness Visi t (AWV) Annual Wellness Visit (AWV) [facility] Start: 02-07-2022 Influenza vaccination Flu vaccine (# 1) [facility] Start: 11-09-2021 Diabetes Screening Diabetes Screenin g [facility] Start: 2020 Fall Risk Screening Fall Risk Screen ing [facility] Start: 2020 Pneumococcal 65+ yea rs Vaccine (1 - PCV) Pneumococcal 65+ years Vaccine (1 - PCV) [facility] Start: 2020 Pneumococcal Vaccine : 65+ (1 of 1 - PCV) Pneumococcal Vaccine: 65+ (1 of 1 - PCV) [facility] Start: 2020 Screening for osteoporosis Bone Density Screening [facility] Start: 2010 Screening for osteoporosis DEXA (modify frequency per FRAX score) [facility] Start: 2005 Administration of varicella zoster vaccine Zoster (Shingles) Vaccine (1 of 2) [facility] Start: 2005 Pneumococcal Vaccine : 50+ (1 of 1 - PCV) Pneumococcal Vaccine: 50+ (1 of 1 - PCV) [facility] Start: 2005 Screening for malign ant neoplasm of breast Breast cancer screen [facility] Start: 2005 Shingles vaccine (1 of 2) Hinojosa gles vaccine (1 of 2) [facility] Start: 2005 Shingrix Vaccine (1 of 2) Hinojosa grix Vaccine (1 of 2) [facility] Start: 2000 Lipid panel Lipid Screening [facility] Start: 2000 Screening for malign ant neoplasm of colon [facility] Start: 1995 Lipid panel Lipids [facility] Start: 1995 Screening for malign ant neoplasm of breast Mammogram Screening [facility] Start: 1974 DTaP,Tdap and Td Vac cines (1 - Tdap) DTaP,Tdap and Td Vaccines (1 - Tdap) [facility] Start: 1974 DTaP/Tdap/Td vaccine (1 - Tdap) DTaP/Tdap/Td vaccine (1 - Tdap) [facility] Start: 1974 Urine microalbumin profile DTaP,Tdap,Td Vaccine (1 - Tdap) [facility] Start: 1973 Anxiety Screening Anxiety Screening [facility] Start: 1973 Depression Screening Depression Scre [facility] Start: 1973 Hepatitis C screening B [facility] Start: 1967 Depression Screen Depression Screen [facility] Start: 1967 Depression Screening Depression Scre ening [facility] Start: 03-06-1956 COVID-19 Vaccine (#1) COVID-19 Vacci ne (#1) [facility] Start: 1955 Medicare Annual Well ness Visit Medicare Annual Wellness [facility] Start: 1955 Tobacco Counseling Tobacco Counselin g [facility] End: 01-31-2025 CBC panel - Blood by Automated count CBC Lab Routine Medication management 1 Occurrences starting 02/01/2024 until 01/31/2025 [facility] Work Phone: Comment on above: 1 Occurrences starti ng 02/01/2024 until 01/31/2025 Cryptosporidium sp A g [Presence] in Stool by Immunoassay [facility] CT Abdomen and Pelvi s W contrast IV [facility] End: 06-21-2022 CTA CORON EJECT FRAC WALL MOTION CTA CORON EJECT FRAC WALL MOTION Imaging Routine Chest pain, unspecified type Dizziness Abnormal stress ECG 1 Occurrences starting 06/21/2022 until 06/21/2022 [facility] [employer] Work Phone: Comment on above: 1 Occurrences starti ng 06/21/2022 until 06/21/2022 Fluoroscopy of esophagus [facility] Giardia lamblia Ag [Presence] in Stool by Immunoassay [facility] End: 07-01-2025 Lipid 1996 panel - Serum or Plasma Lipid profile Lab Routine Primary hypertension 1 Occurrences starting 07/01/2024 until 07/01/2025 [facility] Work Phone: Comment on above: 1 Occurrences starti ng 07/01/2024 until 07/01/2025 Patient referral [facility] Work Phone: [facility] Immunizations Immunization Date Immunization Notes Care Provider Kenzie mancia 09-30-2022 tetanus toxoid, redu yonathan diphtheria toxoid, and acellular pertussis vaccine, adsorbed JASMINYASMINE LANE-AMJUSTIN [facility] 03-12-2021 SARS-CoV-2 (COVID-19 ) mRNA BNT-162b2 vax JASMIN BHANDARI [facility] Comment on above: Result Comment: 2024: [id number] 02-19-2021 SARS-CoV-2 (COVID-19 ) mRNA BNT-162b2 miracle BHANDARI [facility] Comment on above: Result Comment: 2024: [id number] Payers Date Payer Category Payer Medicare [id number] 2023 Self-pay 2021 Medicare [id number] 2021 Medicare HMO [employer] MEDICARE [id number] 1959 Medicare [id number] 1955 Unknown [id number] 1955 Unknown [id number] 1955 Unknown [id number] 1955 Unknown [id number] 1955 Unknown [id number] 6 1955 Unknown [id number] 6 1955 Unknown [id number] 1955 Unknown [id number] 1955 Unknown [id number] 1955 Unknown [id number] 1955 Unknown [id number] Unknown HCAP/HFA/FAP Active [id number] Unknown [id number] Unknown [id number] Unknown [id number] Social History Date Type Detail Facility Tobacco smoking stat [facility] Tobacco smoking consumption unknown [facility] Phone: Start: 1955 Sex Assigned At Not on file [facility] Phone: Start: 08-19-2020 End: 12-08-2023 Sex Assigned At [facility] Start: 05-10-2023 End: 08-27-2024 Tobacco smoking status Light tobacco smoker (finding) [facility] Start: 12-20-2022 End: 07-30-2024 Tobacco smoking status NHIS Smoker (finding) [facility] Start: 1955 Sex Assigned At Female F [facility] Start: 05-30-2024 End: 09-10-2024 Sex Female (finding) [facility] Start: 10-03-2014 End: 08-05-2024 Tobacco smoking status NHIS Ex-smoker [facility] Start: 12-20-1975 End: 12-19-2012 History of tobacco use Cigarette Smoker [facility] Start: 10-03-2014 End: 08-19-2020 Cigarettes smoked current (pack per day) - Reported 0.5 [facility] Start: 10-03-2014 End: 04-27-2022 Tobacco use and exposure Smokeless tobacco non-user [facility] Start: 10-21-2014 End: 08-05-2024 Alcoholic beverage intake Current non-drinker of alcohol (finding) [facility] Start: 04-27-2022 Tobacco smoking stat us NHIS Smokes tobacco daily [facility] Start: 06-19-2023 End: 12-08-2023 Alcoholic beverage intake Ex-drinker (finding) [facility] Childcare Unknown [facility] Start: 04-27-2022 Tobacco Comment has been decre asing daily [facility] Start: 05-06-2022 Alcohol Comment social--rare [facility] Functional Status Date Assessment Result Facility 08-27-2024 Functional Status N/A [facility] 07-24-2024 Functional Status N/A [facility] 05-10-2023 Functional Status N/A [facility] Clinical Notes 11-15-2022 to 08-27-2024 Telephone Encounter - Concepción Murphy RN - 08/07/2024 8:48 AM ESTTelephone Encounter - Joey Bolden MD - 08/07/2024 8:48 AM ESTTelephone Encounter - Concepción Murphy RN - 08/07/2024 8:48 AM EST Note Date & Type Note Facility 08-27-2024 Hospital Discharg e instructions Patient Education 08/27/2024 14:14:23 Steps to Quit Smoking Steps to Quit Smoking Smoking tobacco is the leading cause of preventable . It can affect almost every organ in the body. Smoking puts you and those around you at risk for developing many serious chronic diseases. Quitting smoking can be very challenging. Do not get discouraged if you are not successful the first time. Some people need to make many attempts to quit before they achieve long-term success. Do your best to stick to your quit plan, and talk with your health care provider if you have any questions or concerns. How do I get ready to quit? When you decide to quit smoking, create a plan to help you succeed. Before you quit: Pick a date to quit. Set a date within the next 2 weeks to give you time to prepare. Write down the reasons why you are quitting. Keep this list in places where you will see it often. Tell your family, friends, and co-workers that you are quitting. Support from people you are close to can make quitting easier. Talk with your health care provider about your options for quitting smoking. Find out what treatment options are covered by your health insurance. Identify people, places, things, and activities that make you want to smoke (triggers). Avoid them. What first steps can I take to quit smoking? Throw away all cigarettes at home, at work, and in your car. Throw away smoking accessories, such as ashtrays and lighters. Clean your car. Make sure to empty the ashtray. Clean your home, including curtains and carpets. What strategies can I use to quit smoking? Talk with your health care provider about combining strategies, such as taking medicines while you are also receiving in-person counseling. Using these two strategies together makes you more likely to succeed in quitting than if you used either strategy on its own. If you are or , talk with your health care provider about finding counseling or other support strategies to quit smoking. Do not take medicine to help you quit smoking unless your health care provider tells you to. Quit right away Quit smoking completely, instead of gradually reducing how much you smoke over a period of time. Stopping smoking right away may be more successful than gradually quitting. Attend in-person counseling to help you build problem-solving skills. You are more likely to succeed in quitting if you attend counseling sessions regularly. Even short sessions of 10 minutes can be effective. Take medicine You may take medicines to help you quit smoking. Some medicines require a prescription. You can also purchase ryru-ywy-hizujkl medicines. Medicines may have nicotine in them to replace the nicotine in cigarettes. Medicines may: Help to stop cravings. Help to relieve withdrawal symptoms. Your health care provider may recommend: Nicotine patches, gum, or lozenges. Nicotine inhalers or sprays. Non-nicotine medicine that you take by mouth. Find resources Find resources and support systems that can help you quit smoking and remain smoke-free after you quit. These resources are most helpful when you use them often. They include: Online chats with a counselor. Telephone quitlines. Printed self-help materials. Support groups or group counseling. Text messaging programs. Mobile phone apps or applications. Use apps that can help you stick to your quit plan by providing reminders, tips, and encouragement. Examples of free services include Quit Guide from the CDC and smokefree.gov What can I do to make it easier to quit? Reach out to your family and friends for support and encouragement. Call telephone quitlines, such as 1-251-UHNS-NOW, reach out to support groups, or work with a counselor for support. Ask people who smoke to avoid smoking around you. Avoid places that trigger you to smoke, such as bars, parties, or smoke-break areas at work. Spend time with people who do not smoke. Lessen the stress in your life. Stress can be a smoking trigger for some people. To lessen stress, try: ?Exercising regularly. ?Doing deep-breathing exercises. ?Doing yoga. ?Meditating. What benefits will I see if I quit smoking? Over time, you should start to see positive results, such as: Improved sense of smell and taste. Decreased coughing and sore throat. Slower heart rate. Lower blood pressure. Clearer and healthier skin. The ability to breathe more easily. Fewer sick days. Summary Quitting smoking can be very challenging. Do not get discouraged if you are not successful the first time. Some people need to make many attempts to quit before they achieve long-term success. When you decide to quit smoking, create a plan to help you succeed. Quit smoking right away, not slowly over a period of time. Find resources and support systems that can help you quit smoking and remain smoke-free after you quit. This information is not intended to replace advice given to you by your health care provider. Make sure you discuss any questions you have with your health care provider. Document Revised: 06/17/2022 Document Reviewed: 06/17/2022 [employer] Patient Education 2023 [employer]. 08/27/2024 14:10:40 How to Use a Vaginal Pessary How to Use a Vaginal Pessary A vaginal pessary is a removable device that is placed into your vagina to support pelvic organs that droop. These organs include your uterus, bladder, and rectum. When your pelvic organs drop down into your vagina, it causes a condition called pelvic organ prolapse (POP). A pessary may be an alternative to surgery for women with POP. It may help women who leak urine when they strain or exercise (stress incontinence). This is a symptom of POP. A vaginal pessary may also be a temporary treatment for stress incontinence during . There are several types of pessaries. All types are usually made of silicone. You can insert and remove some on your own. Other types must be inserted and removed by your health care provider at office visits. The reason you are using a pessary and the severity of your condition will determine which one is best for you. It is also important to find the right size. A pessary that is too small may fall out. A pessary that is too large may cause pain or discomfort. Your health care provider will do a physical exam to find the correct size and fit for your pessary. It may take several appointments to find the best fit for you. If you can be fit with the type of pessary that you can insert, remove, and clean yourself, your health care provider will teach you how to use your pessary at home. You may have checkups every few months. If you have the type of pessary that needs to be inserted and removed by your health care provider, you will have appointments every few months to have the pessary removed, cleaned, and replaced. What are the risks? When properly fitted and cared for, risks of using a vaginal pessary can be small. However, there can be problems that may include: Vaginal discharge. Vaginal bleeding. A bad smell coming from your vagina. Scraping of the skin inside your vagina. How to use your pessary Follow your health care provider's instructions for using a pessary. These instructions may vary, depending on the type of pessary you have. To insert a pessary: 1.Wash your hands with soap and water for at least 20 seconds. 2.Squeeze or fold the pessary in half and lubricate the tip with a water-based lubricant. 3.Insert the pessary into your vagina. It will unfold and provide support. To remove the pessary, gently tug it out of your vagina. You can remove the pessary every night or after several days. You can also remove it to have sex. How to care for your pessary If you have a pessary that you can remove: Clean your pessary with soap and water. Rinse well. Dry it completely before inserting it back into your vagina. Follow these instructions at home: Take dyfl-ibq-pegroua and prescription medicines only as told by your health care provider. Your health care provider may prescribe an estrogen cream to moisten your vagina. Keep all follow-up visits. This is important. Contact a health care provider if: You feel any pain or discomfort when your pessary is in place. You continue to have stress incontinence. You have trouble keeping your pessary from falling out. You have an unusual vaginal discharge that is blood-tinged or smells bad. Summary A vaginal pessary is a removable device that is placed into your vagina to support pelvic organs that droop. This condition is called pelvic organ prolapse (POP). There are several types of pessaries. Some you can insert and remove on your own. Others must be inserted and removed by your health care provider. The best type for you depends on the reason you are using a pessary and the severity of your condition. It is also important to find the right size. If you can use the type that you insert and remove on your own, your health care provider will teach you how to use it and schedule checkups every few months. If you have the type that needs to be inserted and removed by your health care provider, you will have regular appointments to have your pessary removed, cleaned, and replaced. This information is not intended to replace advice given to you by your health care provider. Make sure you discuss any questions you have with your health care provider. Document Revised: 12/24/2020 Document Reviewed: 12/24/2020 [employer] Patient Education 2023 [employer]. Follow Up Care 08/14/2024 09:26:00 With:JASMIN BHANDARI MD, URL Address: When: Unknown [facility] 08-27-2024 Note Patient Education Obstetrics and Gynecology How to Use a Vaginal Pessary A vaginal pessary is a removable device that is placed into your vagina to support pelvic organs that droop. These organs include your uterus, bladder, and rectum. When your pelvic organs drop down into your vagina, it causes a condition called pelvic organ prolapse (POP). A pessary may be an alternative to surgery for women with POP. It may help women who leak urine when they strain or exercise (stress incontinence). This is a symptom of POP. A vaginal pessary may also be a temporary treatment for stress incontinence during . There are several types of pessaries. All types are usually made of silicone. You can insert and remove some on your own. Other types must be inserted and removed by your health care provider at office visits. The reason you are using a pessary and the severity of your condition will determine which one is best for you. It is also important to find the right size. A pessary that is too small may fall out. A pessary that is too large may cause pain or discomfort. Your health care provider will do a physical exam to find the correct size and fit for your pessary. It may take several appointments to find the best fit for you. If you can be fit with the type of pessary that you can insert, remove, and clean yourself, your health care provider will teach you how to use your pessary at home. You may have checkups every few months. If you have the type of pessary that needs to be inserted and removed by your health care provider, you will have appointments every few months to have the pessary removed, cleaned, and replaced. What are the risks? When properly fitted and cared for, risks of using a vaginal pessary can be small. However, there can be problems that may include: ??? Vaginal discharge. ??? Vaginal bleeding. ??? A bad smell coming from your vagina. ??? Scraping of the skin inside your vagina. How to use your pessary Follow your health care provider's instructions for using a pessary. These instructions may vary, depending on the type of pessary you have. ??? To insert a pessary: 1. Wash your hands with soap and water for at least 20 seconds. 2. Squeeze or fold the pessary in half and lubricate the tip with a water-based lubricant. 3. Insert the pessary into your vagina. It will unfold and provide support. ??? To remove the pessary, gently tug it out of your vagina. You can remove the pessary every night or after several days. You can also remove it to have sex. How to care for your pessary If you have a pessary that you can remove: ??? Clean your pessary with soap and water. Rinse well. ??? Dry it completely before inserting it back into your vagina. Follow these instructions at home: ??? Take qnpl-wkt-mepcbme and prescription medicines only as told by your health care provider. Your health care provider may prescribe an estrogen cream to moisten your vagina. ??? Keep all follow-up visits. This is important. Contact a health care provider if: ??? You feel any pain or discomfort when your pessary is in place. ??? You continue to have stress incontinence. ??? You have trouble keeping your pessary from falling out. ??? You have an unusual vaginal discharge that is blood-tinged or smells bad. Summary ??? A vaginal pessary is a removable device that is placed into your vagina to support pelvic organs that droop. This condition is called pelvic organ prolapse (POP). ??? There are several types of pessaries. Some you can insert and remove on your own. Others must be inserted and removed by your health care provider. ??? The best type for you depends on the reason you are using a pessary and the severity of your condition. It is also important to find the right size. ??? If you can use the type that you insert and remove on your own, your health care provider will teach you how to use it and schedule checkups every few months. ??? If you have the type that needs to be inserted and removed by your health care provider, you will have regular appointments to have your pessary removed, cleaned, and replaced. This information is not intended to replace advice given to you by your health care provider. Make sure you discuss any questions you have with your health care provider. Document Revised: 12/24/2020 Document Reviewed: 12/24/2020 [employer] Patient Education ? 2023 [employer] Pulmonary Medicine Steps to Quit Smoking Smoking tobacco is the leading cause of preventable . It can affect almost every organ in the body. Smoking puts you and those around you at risk for developing many serious chronic diseases. Quitting smoking can be very challenging. Do not get discouraged if you are not successful the first time. Some people need to make many attempts to quit before they achieve long-term success. Do your best to stick to your quit plan, and talk with your health care provider if you (more content not included)... [facility] 08-07-2024 Miscellaneous Notes Surgeon: Dr. Elizabeth Lott Type of surgery: Rt ESWL for kidney stones Date of surgery: 10/02/24 Surgery location: [facility] Type of anesthesia: General On a blood thinner?: N/A On an antiplatelet?: ASA Plavix- Would like to hold both for 5-7 days Had CARRILLO to [facility] 01/2023 Date of last EK07/01/24 History of CVA/TIA, DVT/PE? None known Last saw Dr. Bolden 07/01/24 Noted. Moderate risk, risk non prohibitive. Can discontinue aspirin indefinitely. Hold Plavix for 5-7 days prior to procedure and resume when cleared afterwards. Thank you Note created and faxed documented in this encounter [facility] 08-07-2024 Telephone encounter Note Surgeon: Dr. Elizabeth Lott Type of surgery: Rt ESWL for kidney stones Date of surgery: 10/02/24 Surgery location: [facility] Type of anesthesia: General On a blood thinner?: N/A On an antiplatelet?: ASA Plavix- Would like to hold both for 5-7 days Had CARRILLO to [facility] 01/2023 Date of last EK07/01/24 History of CVA/TIA, DVT/PE? None known Last saw Dr. Bolden 07/01/24 [facility] 08-07-2024 Telephone encounter Note Noted. Moderate risk, risk non prohibitive. Can discontinue aspirin indefinitely. Hold Plavix for 5-7 days prior to procedure and resume when cleared afterwards. Thank you [facility] 08-07-2024 Telephone encounter Note Note created and faxed [facility] 08-05-2024 Note HNO ID: [id number] Author: MICAELA MONROY MD Service: ? Author Type: Physician Type: Progress Notes Filed: 08/05/2024 11:30 Note Text: Consultation requested by Dr. Fernando Castellon for an opinion regarding hiatal hernia. My final recommendations will be communicated back to the requesting physician by way of shared medical record or letter via US mail Pt w weight loss and GERD. Started on PPI and now feels well and has no symptoms anymore. Has had EGD in past w small hiatal hernia. CT scan also w small hiatal hernia and no paraesoph component. States suffering from diverticulitis and now has diarrhea which she attributes to her weight loss. PAST MEDICAL HISTORY Diagnosis Date Hyperlipidemia Hypertension Leukocytosis No past surgical history on file. Current Outpatient Medications on File Prior to Visit Medication Sig omeprazole (PRILOSEC) 40 mg capsule 1 capsule 30 minutes before morning meal Orally Once a day for 30 days rosuvastatin (CRESTOR) 20 mg tablet Take 20 mg by mouth. citalopram (CELEXA) 20 mg tablet Take 1 tablet by mouth once daily. lisinopril (PRINIVIL) 20 mg tablet Take 1 tablet by mouth once daily. atorvastatin (LIPITOR) 20 mg tablet Take 1 tablet by mouth once daily. (Patient not taking: Reported on 08/05/2024) No current facility-administered medications on file prior to visit. Blood pressure (!) 108/45, pulse (!) 56, temperature 36.1 ?C (97 ?F), weight 53.5 kg (118 lb), SpO2 98%. WAD Breathing comfortably on RA CT images and EGD reports reviewed A/p: small sliding hiatal hernia We discussed, in detail, and using diagrams the issue and finding of small hiatal hernia. We discussed aspects of symptoms and symptoms management: and especially need for immediate lifestyle modification including healthy diet, smaller frequent meals, laying supine only after at least 4 hrs of fasting and smoking cessation. At this stage there is no need for surgical intervention as the lifestyle modifications take priority in addressing the symptoms and that the PPI have resolved her symptoms. She understands the aspects of the disease process, reasons for these recommendations and why surgery to repair this small hernia is not recommended at this stage. All of her questions answered and concerns addressed Pt appreciative of the care Micaela Monroy MD I spent 30 minutes in the visit, with more than 50% of the total zljm-kw-avjg time of the visit in counseling / coordination of care. [facility] 08-05-2024 History of Presen t illness Narrative Consultation requested by Dr. Fernando Castellon for an opinion regarding hiatal hernia. My final recommendations will be communicated back to the requesting physician by way of shared medical record or letter via US mail Pt w weight loss and GERD. Started on PPI and now feels well and has no symptoms anymore. Has had EGD in past w small hiatal hernia. CT scan also w small hiatal hernia and no paraesoph component. States suffering from diverticulitis and now has diarrhea which she attributes to her weight loss. PAST MEDICAL HISTORY Diagnosis Date Hyperlipidemia Hypertension Leukocytosis No past surgical history on file. Current Outpatient Medications on File Prior to Visit Medication Sig omeprazole (PRILOSEC) 40 mg capsule 1 capsule 30 minutes before morning meal Orally Once a day for 30 days rosuvastatin (CRESTOR) 20 mg tablet Take 20 mg by mouth. citalopram (CELEXA) 20 mg tablet Take 1 tablet by mouth once daily. lisinopril (PRINIVIL) 20 mg tablet Take 1 tablet by mouth once daily. atorvastatin (LIPITOR) 20 mg tablet Take 1 tablet by mouth once daily. (Patient not taking: Reported on 08/05/2024) No current facility-administered medications on file prior to visit. Blood pressure (!) 108/45, pulse (!) 56, temperature 36.1 C (97 F), weight 53.5 kg (118 lb), SpO2 98%. WAD Breathing comfortably on RA CT images and EGD reports reviewed A/p: small sliding hiatal hernia We discussed, in detail, and using diagrams the issue and finding of small hiatal hernia. We discussed aspects of symptoms and symptoms management: and especially need for immediate lifestyle modification including healthy diet, smaller frequent meals, laying supine only after at least 4 hrs of fasting and smoking cessation. At this stage there is no need for surgical intervention as the lifestyle modifications take priority in addressing the symptoms and that the PPI have resolved her symptoms. She understands the aspects of the disease process, reasons for these recommendations and why surgery to repair this small hernia is not recommended at this stage. All of her questions answered and concerns addressed Pt appreciative of the care Micaela Monroy MD I spent 30 minutes in the visit, with more than 50% of the total kdug-zz-vcsi time of the visit in counseling / coordination of care. documented in this encounter [facility] 07-30-2024 Evaluation note Diagnosis Onset Date Resolution GERD (gastroesophageal reflux disease) acute July 30 3:30pm Irritable bowel syndrome with diarrhea acute July 112024 3:30pm Nausea acute July 30, 2024 3:30pm Diarrhea acute September 10 3:00pm Sliding hiatal hernia acute Sep 3:00pm [facility] Work Phone: [phone]) 225-704001-15-2025 Hospital Discharge instructions Patient Education 07/24/2024 09:48:55 Dietary Guidelines to Help Prevent Kidney Stones [...] include: ?8 oz (237 mL) of milk, nyyjgtv-cyktanhrzboq-sypvq milk, and calcium- fortifiedfruit juice. Calcium-fortified means [...] ?Spinach (cooked), rhubarb, beets, sweet potatoes, and Greenlandic chard. ?Peanuts. ?Potato chips, romanian fries, and baked potatoes with skin on. ?Nuts and nut products. ?Chocolate. If you regularly take a diuretic medicine, make sure to eat at least 1 or 2 servings of fruits or vegetables that are high in potassium each day. These include: ?Avocado. ?Banana. ?[place], prune, carrot, or tomato juice. ?Baked potato. [...] magnesium, fish oil, or vitamin B6. Take ohhm-pub-fcxwgiy and prescription medicines only as told by [...] Casseroles. Pizza. Lasagna. Frozen meals. Potato chips. Luxembourgish fries. The items listed above may not [...] provider. Document Revised: 10/06/2022 Document Reviewed: 10/06/2022 [employer] Patient Education 2023 [employer]. Follow Up Care 04/24/2024 16:03:36 With:Elizabeth Lott MD, URL, [facility] Address: When: Unknown Comments:[facility] NotePatient Education Nephrology Dietary Guidelines to Help Prevent [...] for following this plan? Reading food labels ??? Choose foods with no salt added or low-salt labels. Limit your salt (sodium) intake to lessthan 1,500 mg a day. ??? Choose foods with calcium for each meal and snack. Try to eat about 300 mg of calcium at each meal. Foods that contain 200?500 mg of calcium a serving include: ? 8 oz (237 mL) of milk, dcvtfaa-vtysnpvkiyjd-bfbkm milk, and calcium- fortifiedfruit juice. Calcium-fortified means [...] much calcium is recommended for you. Shopping ??? Buy plenty of fresh fruits and vegetables. Most people do not need to avoid fruits and vegetables, even if these foods contain nutrients that may contribute to kidney stones. ??? When shopping for convenience foods, choose: ? Whole pieces of fruit. ? Pre-made salads with dressing on the side. ? Low-fat fruit and yogurt smoothies. ??? Avoid buying frozen meals or prepared deli foods. These can be high in sodium. ??? Look for foods with live cultures, such as yogurt and kefir. ??? Choose high-fiber grains, such as whole-wheat breads, oat bran, and wheat cereals. Cooking ??? Do not add salt to food when cooking. Place a salt shaker on the table and allow each person toadd their own salt to taste. ??? Use vegetable protein, such as beans, textured vegetable protein (TVP), or tofu, instead of meat in pasta, casseroles, and soups. Meal planning ??? Eat less salt, if told by your dietitian. To do this: ? Avoid eating processed or pre-made food. ? Avoid eating fast food. ??? Eat less animal protein, including cheese, meat, [...] size of the palm of your hand. ??? Eat at least five servings of fresh fruits and vegetables each day. To do this: ? Keep fruits and vegetables on hand for snacks. ? Eat one piece of fruit or a handful of berries with breakfast. ? Have a salad and fruit at lunch. ? Have two kinds of vegetables at dinner. ??? You may be told to limit foods that are high in a substance called oxalate. These include: ? Spinach (cooked), rhubarb, beets, sweet potatoes, and Greenlandic chard. ? Peanuts. ? Potato chips, romanian fries, and baked potatoes with skin on. ? Nuts and nut products. ? Chocolate. ??? If you regularly take a diuretic medicine, make sure to eat at least 1 or 2 servings of fruits or vegetables that are high in potassium each day. These include: ? Avocado. ? Banana. ? [place], prune, carrot, or tomato juice. ? Baked potato. ? Cabbage. ? Beans and split peas. Lifestyle ??? Drink enough fluid to keep your urine pale yellow. This is the most important thing you can do.Spread your fluid intake throughout the day. ??? If you drink alcohol: ? Limit how [...] oz glass of hard liquor (44 mL). ??? Lose weight if told by your health care provider. Work with your dietitian to find an eating plan and weight loss strategies that work best for you. General information ??? Talk to your health care provider and dietitian about taking daily supplements. Depending on your health and the cause of your kidney stones, you may be told: ? Do not take high-dose supplements of vitamin C (1,000 mg a day or more). ? To take a calcium supplement. ? To take a daily probiotic supplement. ? To take other supplements such as magnesium, fish oil, or vitamin B6. ??? Take dmgi-hku-zxhxssh and prescription medicines only as told by your health (more content not included)...[facility]12-23-2024 History of Present illness Narrative* Joey Bolden MD - 07/01/2024 12:00 PM EST Sly Coy Date of visit: 07/01/2024 Date of : 1955 Age: 68 y.o. 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 citalopram (CeleXA) 20 mg tablet Take 1 tablet (20 mg total) by mouth in the morning. clopidogreL (PLAVIX) 75 mg tablet take 1 tablet by mouth daily 90 tablet 2 isosorbide mononitrate (IMDUR) 30 mg 24 hr tablet TAKE 1 TABLET (30 MG TOTAL) BY MOUTH DAILY. 90 tablet 3 lisinopriL (PRINIVIL,ZESTRIL) 40 mg tablet Take 1 tablet (40 mg total) by mouth in the morning. metoprolol succinate XL (TOPROL XL) 25 mg 24 hr tablet Take 1 tablet (25 mg total) by mouth nightly. 90 tablet 3 omeprazole (PriLOSEC) 40 mg capsule Take 1 capsule (40 mg total) by mouth in the morning. rosuvastatin (CRESTOR) 20 mg tablet Take 1 tablet (20 mg total) by mouth in the morning. 90 tablet 3 nitroglycerin (NITROSTAT) 0.4 MG SL tablet 1 under the tongue as needed for angina, may repeat q5mins for up three doses 30 tablet 3 No current facility-administered medications for this visit. Chief Complaint Patient presents with Follow-up EST PT LS 06/19/23 HM. SCHED W/PT History of Present Illness Patient is here for routine follow-up. Stated that she is feeling. Occasionally has some sharp discomfort left upper chest that occurs once or twice per month, not related to exertion, usually last for few seconds. No shortness of breath with it or nausea or sweats. Has not been using p.r.n. sublingual nitro as she does not have it. No palpitations. Occasional lightheadedness getting up too quickly, no syncope or presyncope. Drinks average of 30-40 oz of fluid per day. No orthopnea or edema. Smokes average of half a pack per day. No alcohol use. 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 On her feet for hours, no issues at work. Past Medical History: Diagnosis Date Anxiety Bronchitis Chest pain Dizziness GERD (gastroesophageal reflux disease) Hyperlipidemia Hypertension Kidney stones Vertigo No data recorded No data recorded No data recorded Past Surgical History: Procedure Laterality Date BLADDER SURGERY 01/2018 bladder suspension COLONOSCOPY COLONOSCOPY N/A 12/24/2020 Performed by Tyler Wesley MD at [facility] DILATION AND CURETTAGE OF UTERUS ESOPHAGOGASTRODUODENOSCOPY ESOPHAGOGASTRODUODENOSCOPY 12/20/2022 ESOPHAGOGASTRODUODENOSCOPY N/A 12/24/2020 Performed by Tyler Wesley MD at [facility] HYSTERECTOMY 01/15/2018 LASER ABLATION uterine LITHOTRIPSY TUBAL LIGATION Family History Problem Relation Age of Onset Heart attack Father Arrhythmia Brother Heart attack Brother Breast cancer Maternal Aunt 73 Breast cancer Maternal great-grandmother maybe 70s Coronary artery disease Maternal Grandmother Social History Socioeconomic History Marital status: Single Spouse name: Not on file Number of children: Not on file Years of education: Not on file Highest education level: Not on file Occupational History Not on file Tobacco Use Smoking status: Every Day Current packs/day: 0.50 Types: Cigarettes Smokeless tobacco: Never Tobacco comments: has been decreasing daily Vaping Use Vaping status: Never Used Substance and Sexual Activity Alcohol use: Not Currently Comment: social--rare Drug use: Never Sexual activity: Defer Other Topics Concern Caffeine Use Yes Comment: 2-3 cups throughout the day Social History Narrative Not on file Social Drivers of Health Financial Resource Strain: Not on file Food Insecurity: No Food Insecurity (07/01/2024) Hunger Screening Food Insecurity - Worry: Never True Food Insecurity - Inability: Never True Transportation Needs: Not on file Physical Activity: Not on file Stress: Not on file Social Connections: Not on file Interpersonal Safety: Not on file Housing Instability: Not on file Review of Systems Review of Systems Respiratory: Negative for cough, hemoptysis and wheezing. Gastrointestinal: Positive for diarrhea. Negative for abdominal pain, change in bowel habit and hematochezia. Genitourinary: Negative for dysuria and hematuria. Neurological: Negative for focal weakness, headaches and paresthesias. CARDIOVASCULAR: Please review HPI. Physical Examination General appearance: Alert, oriented and cooperative. In no acute distress. Skin: Warm and dry to touch. Head: Normocephalic, without obvious abnormality, atraumatic. Ears, Nose, Mouth, Throat: Throat clear without erythema or exudate. Dentition intact. Eyes: Conjunctivae unremarkable, EOM intact. Neck: No JVD, No carotid bruit. Neck supple, trachea midline. Respiratory: Clear to auscultation bilaterally, no use of accessory muscles. Cardiovascular: RRR with normal S1 and S2 with no murmurs. Gastrointestinal: Soft, non-tender. Bowel sounds normal. Musculoskeletal: No peripheral edema. Neurologic: Oriented to time, person and place, affect appropriate. No focal/major motor defects noted. Psychiatric: Appropriate mood, memory and judgement. VITAL SIGNS: BP 140/72 (BP Site: Left Arm, BP Postition: Sitting) Pulse 60 Ht 154.9 cm (5' 1 ) Wt 55.2 kg (121 lb 9.6 oz) SpO2 100% BMI 22.98 kg/m Orders Placed or Reconciled This Encounter Medications nitroglycerin (NITROSTAT) 0.4 MG SL tablet Si under the tongue as needed for angina, may repeat q5mins for up three doses Dispense: 30 tablet Refill: 3 Medications Discontinued During This Encounter Medication Reason oxybutynin (DITROPAN) 5 mg tablet Discontinued by another clinician tamsulosin (FLOMAX) 0.4 mg capsule Discontinued by another clinician IMPRESSIONS/PLAN 1. Hx of right coronary artery stent placement - POCT EKG 2. Primary hypertension - Lipid profile; Future 3. Hyperlipidemia, unspecified hyperlipidemia type 4. Smoker Previous cardiac related labs and test results were reviewed and discussed with the patient. Noncardiac type chest pain CAD s/p CARRILLO to R[facility] at [facility] 01/2023 Normal EF TTE 04/2022 and SPECT MPI 10/2022 Hypertension Hyperlipidemia - 07/2016: Total cholesterol 252, HDL 44, LDL 163, triglycerides 227 Smoker - 1/2 PPD Hiatal hernia Smoke marijuana Patient is here for routine follow-up. Reports non cardiac type chest pain that occurs once or twice per month. No ischemic workup planned at this time. Will check lipids. P.r.n. sublingual nitro prescribed and patient educated how to use it for angina/angina equivalent. Continue DAPT, Imdur 30 daily, Crestor 20 daily, Toprol 25 daily, lisinopril 40 daily. Counseled importance of cessation from smoking tobacco and marijuana. Follow-up in 6 months or sooner if needed. Patient to call us with any cardiac questions or concerns. TODAYS ORDERS Orders Placed This Encounter Procedures Lipid profile POCT EKG FOLLOW UP Return in about 6 months (around 12/30/2024). PCP: [facility] Edith Referring Physician: Nadira Martínez, ALIGNMENT SPECIALIST-MACHINE M[employer] WORK[employer] [address] [place] [address] documented in this encounterWashington County [facility] HospitalPerkStreet Financial12-23-2024 Instructions* Patient Instructions* Suzette Haskins CMA - 07/01/2024 12:00 PM EST Are You Ready To Kick The Habit? Free Tobacco Cessation Resources [facility] Services [facility] provide all employees with free tobacco cessation services that include: Counseling to understand nicotine addiction Education about medications that can help you successfully quit Assistance with developing a plan to quit Call to set up an individual appointment or find out when group classes will be held: [facility]: [phone] [facility]: [phone] [facility]: [phone] [facility]: [phone] Quit Smoking Action Plan and Resources [place] [facility] offers an eight-week, online smoking cessation plan to all [facility] employees, regardless of whether [employer] is your medical insurance provider. Go to [email or web address] and click the Health Risk Assessment and Resources link to get started. In the [employer].ng menu, click Action Plans instead of Health Risk Assessment to access the Quit Smoking Action Plan. Additional smoking cessation resources are also available to all [facility] employees on the [employer] web page at www.Adyuka/quitsmoking. [employer] Tobacco Cessation Program If [employer] is your medical insurance provider, there are more free resources available to you, including: No copays or deductibles on local tobacco cessation counseling services to help you quit Prescription assistance for tobacco cessation medications to help you quit For details about the tobacco cessation program available to [employer] members, go to www.Adyuka (Search: Tobacco Cessation Program). [place] Tobacco Quit Line 4-415-TXIQ-NOW ( ) is a toll-free, telephonic service that helps [place] residents quit smoking and using tobacco. It is staffed by experts who tailor a quit plan for you and provide you with advice. [place] Tobacco Quit Line 8-566-HAXR-NOW ( ) is a toll-free, telephonic service that helps [place] residents quit smoking and using tobacco. It is staffed by experts who tailor a quit plan for you and provide you with advice. Two weeks of nicotine replacement therapy may be provided at no charge, if needed. Additional Resources These national organizations also offer free information and resources to help you quit tobacco: [place] [employer]--www.cancer.org/healthy/stayawayfromtobacco [place] Heart [employer]--www.heart.org (Search: Quit Smoking) Centers for Disease Control and Prevention--www.cdc.gov/tobacco [place] Lung Association--www.lungusa.org [facility] Miscellaneous Notes* Telephone Encounter - Clover Wyman CMA - 06/28/2024 9:23 AM EST Called patient to remind them to bring their most current copy of their medication list with them to their appt. Patient verbalizes understanding. documented in [facility]12-[facility]24 Telephone encounter Note* Telephone Encounter - Clover Wyman CMA - 06/28/2024 9:23 AM EST Called patient to remind them to bring their most current copy of their medication list with them to their appt. Patient verbalizes understanding. [facility]11-[facility] Telephone encounter Note* Telephone Encounter - Compa Tavares - 05/31/2024 4:00 PM EST For documentation purpose- Left a detail message for the patient to schedule an appointment with Dr. Monroy (40 mins slot). Referral from [employer]. Thank you [facility]11-22-2024 Miscellaneous Notes* Telephone Encounter - Compa Tavares - 05/31/2024 4:00 PM EST For documentation purpose- Left a detail message for the patient to schedule an appointment with Dr. Monroy (40 mins slot). Referral from [employer]. Thank you documented [facility]24 Evaluation note* Diagnosis Onset Date Resolution Status Admit Date Diarrhea acute May 30, 2024 9:21am Esophageal dysmotility acute No vem2023 9:21am GERD (gastroesophageal reflu x disease) acute May 30, 2 024 9:21am Nausea acute May 30, 2024 9:21am Sliding hiatal hernia acute May 9:21am GERD (gastroesophageal reflu x disease) acute July 30 3:30pm Irritable bowel syndrome wit h diarrhea acute July 30 3:30pm Nausea acute July 30, 2024 3:30pm [facility] Work Phone: 1(734) 641-144908-27-2024 Evaluation note* Diagnosis Onset Date Resolution Status Admit Date Dyspepsia acute March 05, 2 024 2:54pm GERD (gastroesophageal reflu x disease) acute March 05 2:54pm Sliding hiatal hernia acute Feb us2023 2:54pm Diarrhea acute May 30, 2024 9:21am GERD (gastroesophageal reflu x disease) acute May 30, 2 024 9:21am [facility] Work Phone: 1(972) 197-960507-25-2024 Miscellaneous Notes* Telephone Encounter - Chelsey Biggs RN - 02/01/2024 1:35 PM EDT OV-06/19/2023 [facility]-02/10/2023 Letter sent via mail for reminder of labs and appointment documented in this encounterR[facility]07-25-2024 Telephone encounter Note* Telephone Encounter - Chelsey Biggs RN - 02/01/2024 1:35 PM EDT OV-06/19/2023 [facility]-02/10/2023 Letter sent via mail for reminder of labs and appointment [facility] Evaluation note* Author Himanshu Borjas [facility] Authored January 02, 2024 2:23 pm Patient is positive for dysp epsia, patient notes dysphagia, epigastric pain, globus sensation and daily nausea Patient is also positive for abdominal pain [facility] Work Phone: 1(219) 974-151706-25-2024 Hospital Discharge instructionsAmbulatory Orders* Referral to Gastroenterology Time Frame: 01/02/24, Location: None Selected [facility] Work Phone: 1(125) 950-189502-01-2024 Hospital Discharge instructions Follow Up Care 08/10/2023 14:01:54 With:Oren BOB, JOCELYN Temple, URO Address: [address] [place] [phone] When: Unknown [facility] 01-15-2024 Hospital Discharge instructions Patient Education 07/24/2023 09:56:36 [...] include: ?8 oz (237 mL) of milk, rtbsuuu-vjvvnbbzwxmi-njfgt milk, and calcium- fortifiedfruit juice. Calcium-fortified means [...] ?Spinach (cooked), rhubarb, beets, sweet potatoes, and Greenlandic chard. ?Peanuts. ?Potato chips, romanian fries, and baked potatoes with skin on. ?Nuts and nut products. ?Chocolate. If you regularly take a diuretic medicine, make sure to eat at least 1 or 2 servings of fruits or vegetables that are high in potassium each day. These include: ?Avocado. ?Banana. ?[place], prune, carrot, or tomato juice. ?Baked potato. [...] magnesium, fish oil, or vitamin B6. Take ffgr-bay-bglgauy and prescription medicines only as told by [...] Casseroles. Pizza. Lasagna. Frozen meals. Potato chips. Luxembourgish fries. The items listed above may not [...] provider. Document Revised: 10/06/2022 Document Reviewed: 10/06/2022 [employer] Patient Education 2022 [employer]. Follow Up Care 07/13/2023 14:28:20 With:Elizabeth Lott Address: [address] [place] [address]- [phone] Business (1) [facility] Lamont Morales, [address] [address] [phone] Business (1) When: Unknown Comments:Obtain renal US in 6 weeks at [facility]. Office to call with results. If no hydronephrosis, office will call to schedule follow up in 6 months with KUB and renal US [facility]12-27-2023 Miscellaneous Notes* Telephone Encounter - Cristine Rodriguez RN - 07/05/2023 5:30 PM EST Ov 06/19/23 documented in this encounterR[facility]12-27-2023 Telephone encounter Note* Telephone Encounter - Cristine Rodriguez RN - 07/05/2023 5:30 PM EST Ov 06/19/23 [facility] [employer]us [id number] Hospital Discharge instructions Patient Education 05/10/2023 10:27:19 [...] include: ?8 oz (237 mL) of milk, yofakmp-njqbhbfralyl-ekrys milk, and calcium- fortifiedfruit juice. Calcium-fortified means [...] ?Spinach (cooked), rhubarb, beets, sweet potatoes, and Greenlandic chard. ?Peanuts. ?Potato chips, romanian fries, and baked potatoes with skin on. ?Nuts and nut products. ?Chocolate. If you regularly take a diuretic medicine, make sure to eat at least 1 or 2 servings of fruits or vegetables that are high in potassium each day. These include: ?Avocado. ?Banana. ?[place], prune, carrot, or tomato juice. ?Baked potato. [...] magnesium, fish oil, or vitamin B6. Take woes-osb-jgewxen and prescription medicines only as told by [...] Casseroles. Pizza. Lasagna. Frozen meals. Potato chips. Luxembourgish fries. The items listed above may not [...] provider. Document Revised: 03/07/2022 Document Reviewed: 03/07/2022 [employer] Patient Education 2022 [employer]. Follow Up Care 02/01/2023 14:06:36 With:Oren BOB, JOCELYN Temple, URO Address: When: Unknown Comments:Jaylan Vega ESWL/Stent [facility] 08-08-2023 Evaluation note* Encounter Date Diagnosis Assessment Notes Treatment Notes Treatment Clinical Notes Feb, Hiatal hernia (ICD-10 - K44.9) Pt is taking omeprazole. Pt states this medication is working for her. Pt states she still some times gets acid reflux, but overall, she is doing well. Pt RTO in 6 months Feb, Esophageal stricture (ICD-10 - K22.2) [employer] Other 05-09-2023 Evaluation note* Encounter Date Diagnosis Assessment Notes Treatment Notes Treatment Clinical Notes November, GERD (gastroesophageal reflux disease) (ICD-10 - K21.9) we will obtain a records release to get records from [facility] It is recommened that patient get EGD and she argees to have this done Patient has family history of esophageal cancer November, Family history of esophageal cancer (ICD-10 - Z80.0) [employer] Other Evaluation + Plan note No data available for this section [facility] evaluation + Plan note Future Appointments Appointment Date:01/30/2024 08:00:00 AM Scheduled Provider:Albania Chow Location:[facility] Appointment Type:URO Office Visit [facility] evalkvmxgx note* Diagnosis Chest pain, unspecified type Dizziness Dizziness and giddiness Abnormal stress ECG Other nonspecific abnormal cardiovascular system function study documented in this encounter [facility] [employer] Work Phone: evalmmkuzy note* Diagnosis Onset Date Resolution Status Hiatal hernia acute [facility] Work Phone: evaluation note* Author Himanshu Borjas [facility] Authored January 02, 2024 2:23 pm Patient is positive for dysp epsia, patient notes dysphagia, epigastric pain, globus sensation and daily nausea Patient is also positive for abdominal pain [facility] Work Phone: evaluation note* Diagnosis Hematuria- Primary Hematuria, unspecified Hematuria, gross Gross hematuria Nephrolithiasis Calculus of kidney Hematuria- Primary Hematuria, unspecified Hematuria, gross Gross hematuria Nephrolithiasis Calculus of kidney Renal cyst 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 Unspecified disorder of mineral metabolism Hematuria, unspecified type- Primary Hematuria, gross Gross hematuria Nephrolithiasis Calculus of kidney Renal cyst Unspecified congenital cystic kidney disease Hematuria, gross- Primary Gross hematuria Renal cyst Unspecified congenital cystic kidney disease Nephrolithiasis Calculus of kidney Nephrolithiasis- Primary Calculus of kidney Hematuria, gross Gross hematuria Renal cyst Unspecified congenital cystic kidney disease Hx of right coronary artery stent placement- Primary Primary hypertension Unspecified essential hypertension Hyperlipidemia, unspecified hyperlipidemia type Smoker Tobacco use disorder [facility] Diagnosis Hiatal hernia- Primary Diaphragmatic hernia without mention of obstruction or gangrene [facility] Medication management- Primary documented in this encounter [facility] N[facility] - Reported* Type Description Date Medical History kidney stones Medical History hypertension Medical History gastritis Medical History Hiatal hernia Surgical History kidney stone Surgical History fx nose Surgical History ablasion Surgical History tubal ligation [employer] Other History general Narrative - Reported* Type Description Date Medical History kidney stones Medical History hypertension Medical History gastritis Medical History Hiatal hernia Surgical History kidney stone Surgical History fx nose Surgical History ablasion Surgical History tubal ligation Hospitalization History Heart procedure [employer] Other Hospital Discharge instructions No data available for this section [facility] Hospital Discharge instructionsAmbulatory Orders* Referral to General Surgery Time Frame: 05/30/24, Location: [facility] Work Phone: InstructionsNot on filedocumented in this encounter [facility] SystemInstructionsNot on filedocumented in this encounter [facility] SystemInstructionsNot on filedocumented in this encounter [facility] SystemInstructionsNot on filedocumented in this encounter [facility] note No data available for this section [facility] Reason for Referral Specialty Diagnoses / Procedures Referred By Contac t Referred To Contact Radiology Diagnoses Chest pain, unspecified type Dizziness Abnormal stress ECG R07.9 (ICD-10-CM) - Chest pain, unspecified type Procedures CTA CORON EJECT FRAC WALL MOTION CHG CT ANGIO HRT CORNRY ART/BYPASS GRFTS CONTRST 3D POST [id number] - CHG CT ANGIO HRT CORNRY ART/BYPASS GRFTS CONTRST 3D POST Chanel Harrell MD [address] [place] [address] Referral ID Status Reason Start Date Expiration Date V isits Requested Visits Authorized [id number] Authorized 06/21/2022 05/07/2023 1 1 Summary Purpose Family History Relationship Condition Age at Onset Recorded Date/T [...] father Unknown sister Hypertension Unknown Advance Directives Advance Directive Response Recorded Date/ Time Advance Directives No October 25 11:06am Advance Directive Response Recorded Date/ Time Advance Directives No October 25 10:06am Chief Complaint and Reason for Visit Chief [...] reflux disease) Hiatal hernia Nausea Chief Complaint Admit Date 2 month follow up-dysmotility February 2:54pm Diarrhea May 30, 2024 9:21am Reason for Visit Admit Date Dyspepsia March 05, 2024 2: 54pm GERD (gastroesophageal reflux disease) A ugust 2023 2:54pm Sliding hiatal hernia March 05, 2024 2:54pm Diarrhea May 30, 2024 9:21am GERD (gastroesophageal reflux disease) N ov2023 9:21am Chief Complaint Admit Date Diarrhea May 30, 2024 9:21am R19.7 May 31, 2024 12:15pm 1 month follow up July 30, 2024 3 :30pm Reason for Visit Admit Date Diarrhea May 30, 2024 9:21am Esophageal dysmotility May 30 9:21am GERD (gastroesophageal reflux disease) N ovember 2023 9:21am Nausea May 30, 2024 9:21am Sliding hiatal hernia May 30 9:21am GERD (gastroesophageal reflux disease) J anuary 2024 3:30pm Irritable bowel syndrome with diarrhea J anuary 2024 3:30pm Nausea July 30, 2024 3 :30pm Chief Complaint Admit Date 1 month follow up July 30, 2024 3 :30pm 6 week follow up September 10, 2024 3:00 pm Reason for Visit Admit Date GERD (gastroesophageal reflux disease) J anuary 2024 3:30pm Irritable bowel syndrome with diarrhea J anuary 2024 3:30pm Nausea July 30, 2024 3 :30pm Diarrhea September 10, 2024 3:00 pm Sliding hiatal hernia September 10, 2024 3: 00pm Additional Source Comments Reason for Visit (unrecogniz ed section and content) Specialty Diagnoses / Procedures Referred By Contac t Referred To Contact Radiology Diagnoses Chest pain, unspecified type Dizziness Abnormal stress ECG R07.9 (ICD-10-CM) - Chest pain, unspecified type Procedures CTA CORON EJECT FRAC WALL MOTION CHG CT ANGIO HRT CORNRY ART/BYPASS GRFTS CONTRST 3D POST [id number] - CHG CT ANGIO HRT CORNRY ART/BYPASS GRFTS CONTRST 3D POST Chanel Harrell MD [address] [place] [address] Referral ID Status Reason Start Date Expiration Date V isits Requested Visits Authorized [id number] Authorized 06/21/2022 05/07/2023 1 1 Reason Comments Follow-up EST PT LS 06/19/23 H M. SCHED W/PT Reason Comments Hernia Reason Onset Date Comments Surgical Or Dental Clearance 08/07/2024 Reason Comments Med Refill Care Teams (unrecognized sec tion and content) Saddle Mechanic Relationship Specialty Start Date End Date Nadira Martínez APRN - MACHINE MADE SHOE UNIT WORKER [address] [place] [address] PCP - General Certified Nurse Practitioner 06/17/22 Team Status: Active Member Role Status Dates Nadira Martínez APRN OXYGEN FURNACE OPERATOR-C Primary Care Provider Active Team Status: Inactive Member Role Status Dates Nadira Martínez APRN OXYGEN FURNACE OPERATOR-C Primary Care Provider Active Start: October 26, 2023 End: October 26, 2023 Himanshu Borjas APRN Attending Provider Active Start: October 26, 2023 End: October 26, 2023 Team Status: Inactive Member Role Status Dates Nadira Martínez APRN OXYGEN FURNACE OPERATOR-C Primary Care Provider Active Start: November 14, 2023 End: November 14, 2023 Himanshu Borjas APRN Attending Provider Active Start: November 14, 2023 End: November 14, 2023 Team Status: Inactive Member Role Status Dates Nadira Martínez APRN OXYGEN FURNACE OPERATOR-C Primary Care Provider Active Start: January 02, 2024 End: January 02, 2024 Himanshu oBrjas APRN Attending Provider Active Start: January 02, 2024 End: January 02, 2024 Team Status: Inactive Member Role Status Dates Nadira Martínez APRN OXYGEN FURNACE OPERATOR-C Primary Care Provider Active Start: January 16, 2024 End: January 16, 2024 Himanshu Borjas APRN Attending Provider Active Start: January 16, 2024 End: January 16, 2024 Team Status: Inactive Member Role Status Dates Nadira Martínez APRN OXYGEN FURNACE OPERATOR-C Primary Care Provider Active Start: March 05, 2024 End: March 05, 2024 Himanshu Borjas APRN Attending Provider Active Start: March 05, 2024 End: March 05, 2024 Team Status: Inactive Member Role Status Dates Nadira Martínez APRN OXYGEN FURNACE OPERATOR-C Primary Care Provider Active Start: May 30, 2024 End: May 30, 2024 Himanshu Borjas APRN Attending Provider Active Start: May 30, 2024 End: May 30, 2024 Saddle Mechanic Relationship Specialty Start Date End Date Rafael Garrison MD [address] [place], [place] [address]j[place] [address] PCP - General Internal Medicine 10/03/14 Himanshu Borjas CNP [address] [place] [id number] Family Medicine 01/10/24 Saddle Mechanic Relationship Specialty Start Date End Date Nadira Martínez APRN-MACHINE MADE SHOE UNIT WORKER [address] [place], [place] [id number] PCP - General Family Medicine 11/23/20 Saddle Mechanic Relationship Specialty Start Date End Date [facility] [address] [place] PCP - General Family Medicine 07/01/24 Team Status: Active Member Role Status Dates NON STAFF Primary Care Provider Active Team Status: Inactive Member Role Status Dates NON STAFF Primary Care Provider Active Start: May 31, 2024 End: May 31, 2024 Himanshu Borjas APRN Attending Provider Active Start: May 31, 2024 End: May 31, 2024 Team Status: Inactive Member Role Status Dates NON STAFF Primary Care Provider Active Start: July 30, 2024 End: July 30, 2024 Himanshu Borjas APRN Attending Provider Active Start: July 30, 2024 End: July 30, 2024 Saddle Mechanic Relationship Specialty Start Date End Date Rafael Garrison MD [address] [facility] [phone] PCP - General Internal Medicine 10/03/14 Himanshu Borjas CNP [address] [place] [id number] Family Medicine 01/10/24 Saddle Mechanic Relationship Specialty Start Date End Date [facility] [address] [place] PCP - General Family Medicine 07/01/24 Saddle Mechanic Relationship Specialty Start Date End Date Nadira Martínez APRN-MACHINE MADE SHOE UNIT WORKER [address] [place], [place] [id number] PCP - General Family Medicine 11/23/20 Saddle Mechanic Relationship Specialty Start Date End Date Nadira Martínez APRN-MACHINE MADE SHOE UNIT WORKER [address] [place] [address] PCP - General Family Medicine 11/23/20 Team Status: Inactive Member Role Status Dates NON STAFF Primary Care Provider Active Start: September 10, 2024 End: September 10, 2024 Himanshu Borjas APRN Attending Provider Active Start: September 10, 2024 End: September 10, 2024 INFORMATION SOURCE (unrecogn ized section and content) DATE CREATED AUTHOR 06/30/2022 [facility] DATE CREATED AUTHOR AUTHOR'S ORGANIZ ATION 10/06/2022 [facility] DATE CREATED AUTHOR AUTHOR'S ORGANIZ ATION 01/23/2023 [facility] DATE CREATED AUTHOR AUTHOR'S ORGANIZ ATION 06/03/2024 [facility] DATE CREATED AUTHOR AUTHOR'S ORGANIZ ATION 07/03/2024 [facility] DATE CREATED AUTHOR AUTHOR'S ORGANIZ ATION 08/07/2024 [facility] DATE CREATED AUTHOR AUTHOR'S ORGANIZ ATION 08/29/2024 [facility] Goals (unrecognized section and content) Goals may be documented in a n alternate section Source Comments (unrecognize d section and content) In the event this informatio n is protected by the Federal Confidentiality of Alcohol and Drug Abuse Patient Records regulations: The Federal rules restrict any use of the information to criminally investigate or prosecute any alcohol or drug abuse patient.[facility] the event this information is protected by the Federal Confidentiality of Alcohol and Drug Abuse Patient Records regulations: The Federal rules restrict any use of the information to criminally investigate or prosecute any alcohol or drug abuse patient.[facility] FOR RECORDS PERTAINING TO PATIENTS WHO [...] BE BASED ON THE PRIMARY CLINICAL RECORDS. [facility] [facility]. provides no warranty or guarantee of the accuracy or completeness of information in this document.
[2024-09-18 23:02] VITALS: BP 151/61; PULSE 86; TEMP 36.7; O2SAT 99; BMI 24.5
[2024-09-18] MEDS: ONDANSETRON 4 MG RAPDIS TABLET SL (23:46)
--- NOTE | 2024-09-19 00:30 | ED_ITS ---
HPI HPI - General Adult General Chief complaint: Fall Stated complaint: FALL, HIT HEAD Time Seen by Provider: 09/18/24 23:06 Source: patient Mode of arrival: walk-in Limitations: no limitations History of Present Illness HPI narrative: The patient is a 69-year-old female presenting to the emergency department after a mechanical slip and fall on ice about a week and a half ago. The patient had the left occipital parietal area of her head. Patient states since then she is occasionally felt wobbly, nauseous, and a headache. Patient denies any loss of consciousness when it initially occurred. She is on Plavix. She declined getting treatment. She was urged by her nurse friends and her children to come to the hospital and she finally did today when she was having persistent sympto ms. She denies any difficulty speaking, concentrating or communicating. She denies any lateralizing weakness or numbness. Patient does have some neck pain and stiffness to. Denies any extremity injuries. Discomfort is moderate in severity. Tylenol and Motrin are not sufficing her discomfort. Related Data Home Medications ?Medication ?Instructions ?Recorded ?Confirmed citalopram 20 mg tablet 20 mg PO DAILY 01/18/23 03/09/24 isosorbide mononitrate 30 mg 30 mg PO DAILY 01/18/23 03/09/24 tablet,extended release 24 hr lisinopril 40 mg tablet 40 mg PO DAILY 01/18/23 03/09/24 omeprazole 40 mg capsule,delayed 40 mg PO DAILY 01/18/23 03/09/24 release rosuvastatin 20 mg tablet 20 mg PO DAILY 01/18/23 03/09/24 aspirin 81 mg tablet,delayed 81 mg PO DAILY 02/02/23 03/09/24 release (Adult Low Dose Aspirin) clopidogrel 75 mg tablet 75 mg PO DAILY 02/02/23 03/09/24 alendronate 70 mg tablet 70 mg PO .weekly 03/09/24 03/09/24 cholecalciferol (vitamin D3) 25 1,000 unit PO DAILY 03/09/24 03/09/24 mcg (1,000 unit) capsule famotidine 40 mg tablet 40 mg PO DAILY 03/09/24 03/09/24 Previous Rx's ?Medication ?Instructions ?Recorded oxybutynin chloride 5 mg tablet 5 mg PO BID PRN bladder spasms, 11/15/23 stent pain #60 tabs tamsulosin 0.4 mg capsule 0.4 mg PO QPM Stent pain, stone 05/24/23 passage #30 caps sulfamethoxazole 800 1 tab PO BID Start morning of 07/12/23 mg-trimethoprim 160 mg tablet stent removal next week #2 tabs (Bactrim DS) ondansetron 4 mg disintegrating 4 mg PO Q8H PRN nausea and 11/22/23 tablet vomiting #10 tabs ondansetron 4 mg disintegrating 4 mg PO Q6H PRN nausea and 09/19/24 tablet vomiting #10 tabs tramadol 50 mg tablet 25 mg (1/2 x 50 mg) PO Q6H PRN 09/19/24 pain #10 tabs Allergies Allergy/AdvReac Type Severity Reaction Status Date / Time No Known Drug Allergies Allergy Verified 09/18/24 23:06 Opioid HPI Opioid Management Most Recent Opioid Data: Last Pain Scale 0 11/22/23 13:27 11/22/23 Review of Systems ROS Status of ROS 10 or more systems reviewed and unremark able except as noted in history and below [facility] Medical History (Updated 09/19/24 @ 00:41 by Skylar Henderson DO) Anemia ?D64.9 - Anemia, unspecified (ICD-10) Migraine ?G43.909 - Migraine, unspecified, not intractable, without status migrainosus (ICD-10) Kidney stones ?N20.0 - Calculus of kidney (ICD-10) Postoperative nausea and vomiting ?R11.2 - Nausea with vomiting, unspecified (ICD-10) ?Z98.890 - Other specified postprocedural states (ICD-10) Anxiety ?F41.9 - Anxiety disorder, unspecified (ICD-10) Acid reflux ?K21.9 - Gastro-esophageal reflux disease without esophagitis (ICD-10) Hyperlipidemia ?E78.5 - Hyperlipidemia, unspecified (ICD-10) Hypertension ?I10 - Essential (primary) hypertension (ICD-10) Coronary artery disease ?I25.10 - Atherosclerotic heart disease of [place] coronary artery without angina pectoris (ICD-10) Hx of renal calculi ?Z87.442 - Personal history of urinary calculi (ICD-10) Surgical History H/O cystoscopy (05/24/23) ?Z98.890 - Other specified postprocedural states (ICD-10) History of ovarian cystectomy ?Z98.890 - Other specified postprocedural states (ICD-10) ?Z87.42 - Personal history of other diseases of the female genital tract ( ICD-10) History of endometrial ablation ?Z98.890 - Other specified postprocedural states (ICD-10) History of tubal ligation ?Z98.51 - Tubal ligation status (ICD-10) History of esophagogastroduodenoscopy (EGD) ?Z98.890 - Other specified postprocedural states (ICD-10) History of colonoscopy ?Z98.890 - Other specified postprocedural states (ICD-10) History of cystoscopy ?Z98.890 - Other specified postprocedural states (ICD-10) History of lithotripsy ?Z98.890 - Other specified postprocedural states (ICD-10) Hx of heart artery stent ?Z95.5 - Presence of coronary angioplasty implant and graft (ICD-10) Hx of hysterectomy ?Z90.710 - Acquired absence of both cervix and uterus (ICD-10) Family History Other Family history of breast cancer Family history of hypertension Family history of myocardial infarction Social History Within the past year, how often did you have a drink containing alcohol: monthly or less Smoking status: Never smoker Non-prescribed substance use: cannabis (any form) Non-prescribed substance use details: LAST WEEK 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 Prior to touching the patient, I asked for consent to examine the patient.? General: Alert and oriented, well nourished, mild distress. Eye: PERRL, EOMI, normal conjunctiva. HENT: Normocephalic, normal hearing, moist oral mucosa, no scleral icterus, no sinus tenderness. Neck: Supple, non-tender, no carotid bruits, no JVD, no lymphadenopathy. Lungs: Clear to auscultation and percussion, non-labored respiration. Heart: Normal rate, regular rhythm, no murmur, gallop or edema. Abdomen: Soft, non-tender, non-distended, normal bowel sounds, no masses. Musculoskeletal: Normal range of motion and strength, no tenderness or swelling. Skin: Skin is warm, dry and pink, no rashes or lesions. No head injury obvious or fluctuant hematoma present. Neurologic: Awake, alert, and oriented X3, CN II-XII intact. No past-pointing. Negative Romberg sign. Patient can walk heel-to-toe. She can walk on her toes, walk on her heels, she can balance on 1 foot. GCS 15. NIH stroke scale 0 Psychiatric: Cooperative, appropriate mood and affect.? Following the conclusion of the examination, I have washed my hands thoroughly after removing examination gloves. Constitutional Vital Signs, click to edit/add: Last Vital Signs Temp 98.8 F 09/19/24 00:51 Pulse 69 09/19/24 00:51 Resp 18 09/19/24 00:51 BP 147/65 H 09/19/24 00:51 Pulse Ox 96 09/19/24 00:51 O2 Del Method Room Air 09/18/24 23:02 Course Course Hospital Course: In summary, the patient is a 69-year-old female presenting to the emergency department with headache, neck pain, and left shoulder chest pain. Patient states that she does not recall if she fell on it but it is reproducible to palpation. Patient had imaging of the head, neck, and chest. They were all unremarkable. Patient has obvious clinical evidence of postconcussion syndrome. Patient may need to see a neuropsychologist but I have advised her to begin with her primary care physician for further evaluation and treatment. I advised her to follow concussion protocol which is to rest and avoid any blue lights from a phone or rapid moving videos. Tried to advise her to not engage in any roughhousing activity or concentrating activities as those will all inhibit her recovery. Vital Signs Vital signs: Vital Signs Temperature 98.1 F 09/18/24 23:02 Pulse Rate 86 09/18/24 23:02 Respiratory Rate 18 09/18/24 23:02 Blood Pressure 151/61 H 09/18/24 23:02 Pulse Oximetry 99 09/18/24 23:02 Oxygen Delivery Method Room Air 09/18/24 23:02 Temperature 98.8 F 09/19/24 00:51 Pulse Rate 69 09/19/24 00:51 Respiratory Rate 18 09/19/24 00:51 Blood Pressure 147/65 H 09/19/24 00:51 Pulse Oximetry 96 09/19/24 00:51 Oxygen Delivery Method Room Air 09/18/24 23:02 Medical Decision Making MDM Narrative Medical decision making narrative: Patient is a pleasant 69-year-old female who had a mechanical fall on ice. Patient has negative imaging. Concussion protocol was initiated on the patient with follow-up recommended. P will give the patient some tramadol as Tylenol and ibuprofen have been not successful in helping her pain management. Differential Diagnosis Differential Diagnosis: Intracranial mass, intracranial bleed, neck fracture, shoulder dislocation Medical Records Medical records reviewed: Yes I reviewed the patient's medical records Imaging Data Chest x-ray: Attestation: I have reviewed the pertinent imaging results. Radiologist's impression: No acute cardiopulmonary process. CT scan - head: Attestation: I have reviewed the pertinent imaging results. Radiologist's impression: No evidence of any intracranial process. CT scan C-spine: Attestation: I have reviewed the pertinent imaging results. Radiologist's impression: No evidence of any acute fracture or traumatic listhesis. Discharge Plan Discharge Chief Complaint: Fall Clinical Impression: Head injury, Post concussion syndrome Patient Disposition: Home, Self-Care Time of Disposition Decision: 00:41 Condition: Good Mode of Transportation: Private Vehicle Prescriptions / Home Meds: New ondansetron 4 mg tablet,disintegrating 4 mg PO Q6H PRN (Reason: nausea and vomiting) Qty: 10 0RF tramadol 50 mg tablet 25 mg PO Q6H PRN (Reason: pain) Qty: 10 0RF No Action clopidogrel 75 mg tablet 75 mg PO DAILY aspirin [Adult Low Dose Aspirin] 81 mg tablet,delayed release (DR/EC) 81 mg PO DAILY tamsulosin 0.4 mg capsule 0.4 mg PO QPM Qty: 30 1RF oxybutynin chloride 5 mg tablet 5 mg PO BID PRN (Reason: bladder spasms, stent pain) Qty: 60 1RF ondansetron 4 mg tablet,disintegrating 4 mg PO Q8H PRN (Reason: nausea and vomiting) Qty: 10 0RF isosorbide mononitrate 30 mg tablet extended release 24 hr 30 mg PO DAILY omeprazole 40 mg capsule,delayed release(DR/EC) 40 mg PO DAILY citalopram 20 mg tablet 20 mg PO DAILY lisinopril 40 mg tablet 40 mg PO DAILY rosuvastatin 20 mg tablet 20 mg PO DAILY sulfamethoxazole-trimethoprim [Bactrim DS] 800-160 mg tablet 1 tab PO BID Qty: 2 0RF alendronate 70 mg tablet 70 mg PO .weekly Rx Instructions: Monday cholecalciferol (vitamin D3) 25 mcg (1,000 unit) capsule 1,000 unit PO DAILY famotidine 40 mg tablet 40 mg PO DAILY Rx Instructions: HS Print Language: Citizen Of [place] Instructions: Post Concussion Syndrome (ED) Additional Instructions: Thank you for trusting me with your care. I am sorry you feel so lousy. Please in the future, and is soon as possible because you do take a blood thinner you are in particular at risk for having something bad happen. I hope I exceeded your expectation was able to answer some questions for you. Have a safe drive h ome. Referrals: [facility] [Primary Care Provider] - 1 week Discharge Date/Time: 09/19/24 01:01
[2024-09-19] MEDS: ACETAMINOPHEN 500 MG TABLET 1000 MG PO (00:35)
[2024-09-19 00:51] VITALS: BP 147/65; PULSE 69; TEMP 37.1; O2SAT 96
--- NOTE | 2024-09-19 00:59 | PC.NURSE ---
i gave this patient verbal and written discharge orders along with 2 e-scripts and 1 work note and this patient voices yes to understanding these. at time of discharge this patient voices no concerns and shows no signs of distress
== END 2024-09-19 01:01 | disposition home or self-care (01) ==
PROVIDERS: Emergency Provider Emergency Medicine
DX: R51.9 Headache, unspecified (principal); F07.81 Postconcussional syndrome; Z95.5 Presence of coronary angioplasty implant and graft; Z90.710 Acquired absence of both cervix and uterus; Z98.51 Tubal ligation status; R11.0 Nausea; Z79.02 Long term (current) use of antithrombotics/antiplatelets; M54.2 Cervicalgia; M25.512 Pain in left shoulder; R07.9 Chest pain, unspecified; S09.90XA Unspecified injury of head, initial encounter; W00.0XXA Fall on same level due to ice and snow, initial encounter
CPT/HCPCS: 70450; 71046; 72125; 72141; 99285; Q0162

== ENCOUNTER 2024-09-20 14:42 | Outpatient (OUT) | payer MEDICARE, SELFPAY ==
--- NOTE | 2024-09-20 14:45 | XR_ITS ---
[address] [address] Patient Name: SLY COY MRN: [id number] date: 1955 Sex: F [facility]igned [facility] Current Patient Location: [facility] Accession/Order Number: [id number] Exam Date: 09/20/2024 15:57 Report Date: 09/20/2024 15:58 At the request of: LIYAH DENNY MD Procedure: XR chest 2V Plain film chest 2 view HISTORY: Presurgical assessment COMPARISON: 09/18/2024 FINDINGS: SUPPORT DEVICES: None POSTSURGICAL CHANGES: None HEART: Within normal limits PULMONARY JOHN: Within normal limits MEDIASTINUM: Unremarkable LUNGS AND PLEURA: No acute lung process, pleural effusion or pneumothorax identified. BONY STRUCTURES: Intact ADDITIONAL FINDINGS None XR/XR chest 2V IMPRESSION: No acute process. Impression dictated by: Deepak Acosta M.D.09/20/2024 3:58 PM Dictation Location[facility] Electronically authenticated by: [id number] Y Date: 09/20/2024 15:58
--- OUTSIDE RECORDS SUMMARY | 2024-09-20 14:46 | XMS_ITS | CCD ---
Demographics Address [address] [place] [address] Mobile Phone Preferred Language en Marital Status Single Jain Affiliation Unknown Race White Ethnic Group Not or Lati no Author Organization [facility] Care Team Providers Care Artist Model Name Role Phone Davidlim Nadira MOSS CNP Primary Care Provider CHANEL HARRELL Referring Unavailable ANGLIM, NADIRA Primary Care Unavailable [facility] Care Unava ilable GABRIELLA GRANTYL Consulting Unavailable JUANITA, MIKHAIL Admitting Unavailable GABRIELLA GRANTYL Attending Unavailable ANGGHADA, NADIRA Admitting Unavailable ANGGHADA, NADIRA Attending Unavailable [facility] Care Unava ilable MARILYNN, NADIRA Consulting Unavailable Himanshu Borjas Unavailable LOS LEE Admitting Unavailable LOS LEE Attending Unavailable LOS LEE Referring Unavailable MARILYNN, NADIRA Primary Care Unavailable NADIRA MARTÍNEZ Primary Care Physician [phone] RISA Martínez Primary Care Provider RISA Borjas Attending Provider RISA Martínez Primary Care Provider RISA Borjas Attending Provider Rafael Garrison MD Primary Care Provider Himanshu Borjas CNP Unavailable Himanshu Borjas Admitting Unavailable ScHimanshu jim Attending Unavailable Marilynn, Nadira Primary Care Unavailable ScHimanshu jim Admitting Unavailable ScHimanshu jim Attending Unavailable Marilynn, Nadira Primary Care Unavailable Himanshu Borjas Attending Unavailable NON STAFF Primary Care Unavailable ScHimanshu jim M Admitting Unavailable Anglim Nadira LALA Primary Care Provider [facility] Primary Care Provider NADIRA MARTÍNEZ Referring Unavailable MARILYNN, NADIRA A Primary Care Unavailable JOEY BOLDEN Attending Unavailable NADIRA MARTÍNEZ Referring Unavailable [facility] Primary Care Unava ilable NON STAFF Primary [...] Medication Allergies] Propensity to adverse reactions (disorder) [facility] Repository Medications Current Medications Medication [...] hr tablet Indications: 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-HCC) , [...] 02, 2024 1:15pm take 1 [facility] Omeprazole 20 MG 1 [...] Coronary arteriosclerosis; Translations: [Atherosclerotic heart disease of belkofski coronary artery with other forms of angina [...] 3 Episodic Other aftercare (1 source) Other half-way (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 therapy; Translations: [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 Normal [facility] Urology Office/Clinic Noteon 08-27-2024 Urology Office/Clinic Note [...] with voice recognition artificial intelligence software, specifically [employer], [employer] and or [facility]. Substitutions may have occurred due to the inherent limitations of voice recognition and artificial intelligence software. 1. Female bladder prolapse (N81.10: Cystocele, unspecified) S/p vaginal hysterectomy 2019. Still has ovaries. S/p bladder sling with mesh. Unsure of date. 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 Antiplatelet or antithrombotic long-term use (Z79.02: alf (current) use of antithrombotics/anti platelets) Plavix. Has a heart stent. Elevated risk of periop complications. 5. Smoker (F17.200: Nicotine dependence, unspecified, uncomplicated) Pt states she has been cutting back. Pt states I'm trying . Cessation encouraged. Patient presents with a stage III anterior prolapse. I discussed surgical options including transvaginal repair with belkofski tissue, abdominal sacrocolpopexy and patient opts for [...] Sary anaya accurat (more content not included)... [facility] Comment on above: Result Comment: Elec tronically Signed By: JASMIN BHANDARI MD\.br\Date and Time Signed: 08/27/24 14:39 EST\.br\Electronically Co-Signed By: Sary Navarro\.br\Date and Time Co-Signed: 08/27/24 14:18 EST Patient Letter FTon 2024 Patient Letter [facility] Patient Letter [facility] August 13, 2024 [address] [place] [address] : 1955 Dear _ , You missed [...] select option 3. Sincerely, [facility] [address]OV[address] 08-05-2024 [facility] Office Visit ([facility]) COYSLY ([id number]) 1955 F Date Time Provider Department 08/05/24 11:00 AM MICAELA MONROY [facility] During your visit today, we recorded [...] with more than 50% of the total ulzs-bq-aars time of the visit in counseling / coordination of care. Referring Provider: FERNANDO CASTELLON [[id number]] Allergies As of Date: 08/05/2024 (No Known [...] Status:Closed by MICAELA MONROY on 08/05/24 Normal [facility] Urology Office/Clinic Noteon 07-24-2024 Urology Office/Clinic [...] 08/08/[address] AP w con 01/16/24 [facility]. KUB/RAFAEL 04/30/24 [facility] Dysuria: _at times Incomplete [...] signs involv (more content not included)... Normal [facility] Comment on above: Result Comment: Elec tronically Signed By: Oren BOB, Elizabeth Brown\.br\Date and Time Signed: 07/24/24 10:06 EST\.br\Electronically Co-Signed By: Shahana Mazariegos\.br\Date and Time Co-Signed: 07/24/24 09:51 EST POCT EKGOrdered By: Clover Wyman on 07-01-2024 [facility] 05-31-2024 [facility] Telephone ([facility]) SLY COY ([id number]) 1955 F Date Time Provider Department 05/31/24 MICAELA MONROY [facility] During your visit today, we recorded the following information about you: Compa Tavares 05/31/2024 4:04 PM Addendum For documentation purpose- Left a detail message for the patient to schedule an appointment with Dr. Monroy (40 mins slot). Referral from [facility] scanned. Thank you Allergies As of Date: [...] Status:Closed by COMPA TAVARES on 05/31/24 Normal [facility] Campy coli+jejuni BD MaxOrde red By: Himanshu Borjas on 05-31-2024 C. coli+jejuni tuf gene DOMONIQUE+probe Ql (Stl) Campy coli+jejuni BD Max Negative [facility] Comment on above: Campylobacter test i ncludes C. jejuni and C. coli. Clostridioides difficile tox in B tcdB gene [Presence] in Stool by DOMONIQUE with probe deteOrdered By: Himanshu Borjas on 05-31-2024 C. difficile toxin B tcdB gene DOMONIQUE+probe Ql (Stl) Clostridioides difficile toxin B tcdB gene [Presence] in Stool by DOMONIQUE with probe dete Negative [facility] Comment on above: Testing performed by RT-PCR Clostridium Difficileon 05-11 Clostridium Difficile Negative Normal Negative [facility] Comment on above: Result Comment: Test ing performed by RT-PCR PERFORMED BY: [place] [address] PATHOLOGIST OCEANOGRAPHER GEOLOGICAL NAKIA RUBIN M.D. Performed By: #### S TCYRPTOAG, GIARDIA #### [facility] , #### ENT BACT PANEL, OVP, CDT #### [address] Cryptosporidium Antigen Stoo danny 05-31-2024 Cryptosporidium Antigen Stool Negative Normal Negative [facility] Comment on above: Performed By: #### S TCYRPTOAG, GIARDIA #### [facility] , #### ENT BACT PANEL, OVP, CDT #### [facility] [address] Cryptosporidium parv+homin B D MaxOrdered By: Himanshu Borjas on 05-31-2024 C. parvum+hominis DNA DOMONIQUE+probe Ql (Stl) Cryptosporidium parv+homin BD Max Negative [facility] Comment on above: Cryptosporidium test includes C. hominis and C. parvum. Cryptosporidium sp Ag [Prese nce] in Stool by ImmunoassayOrdered By: Himanshu Borjas on 05-31-2024 Cryptosporidium sp Ag IA Ql (Stl) Cryptosporidium sp Ag [Presence] in Stool by Immunoassay Negative [facility] Entamoeba histolytica BD Max Ordered By: Himanshu Borjas on 05-31-2024 E. histolytica DNA DOMONIQUE+probe Ql (Stl) Entamoeba histolytica BD Max Negative [facility] Comment on above: Testing performed by RT-PCR Giardia Lamblia Ag EIA Stool on 05-31-2024 Giardia Lamblia Ag EIA Stool Negative Normal Negative [facility] Comment on above: Result Comment: Perf ormed at: - [facility] [address] [id number] Ear Nose Throat Surgeon: Nehemias Pollard PhD, Phone: [phone] PERFORMED BY: [place] [address] PATHOLOGIST OCEANOGRAPHER GEOLOGICAL NAKIA RUBIN M.D. Performed By: #### S TCYRPTOAG, GIARDIA #### [facility] , #### ENT BACT PANEL, OVP, CDT #### [address] Giardia sidhu BD MaxOrdered By : Himanshu Borjas on 05-31-2024 G. lamblia DNA DOMONIQUE+probe Ql (Stl) Giardia sidhu BD Max Negative [facility] Giardia lamblia Ag [Presence ] in Stool by ImmunoassayOrdered By: Himanshu Borjas on 05-31-2024 G. lamblia Ag IA Ql (Stl) Giardia lamblia Ag [Presence] in Stool by Immunoassay Negative [facility] Comment on above: Performed at: [address] [id number] Director: Nehemias Pollard PhD, Phone: [phone] Ova and Parasite Panelon Cryptosporidium (C.hominis+par Negative Normal Negative [facility] Comment on above: Result Comment: Cryp tosporidium test includes C. hominis and C. parvum. Performed By: #### S TCYRPTOAG, GIARDIA #### [facility] , #### ENT BACT PANEL, OVP, CDT #### [address] Entamoeba histolytica Negative Normal Negative [facility] Comment on above: Result Comment: Test ing performed by RT-PCR PERFORMED BY: [place] [address] PATHOLOGIST OCEANOGRAPHER GEOLOGICAL NAKIA RUBIN M.D. Performed By: #### S TCYRPTOAG, GIARDIA #### [facility] , #### ENT BACT PANEL, OVP, CDT #### [address] Giardia lamblia Negative Normal Negative [facility] Comment on above: Performed By: #### S TCYRPTOAG, GIARDIA #### [facility] , #### ENT BACT PANEL, OVP, CDT #### [address] Salmonellosis BD MaxOrdered By: Himanshu Borjas on 05-31-2024 Salmonella sp spaO gene DOMONIQUE+probe Ql (Stl) Salmonella sp spaO gene [Presence] in Stool by DOMONIQUE with probe detection Negative [facility] Comment on above: Testing performed by RT-PCR Shigella Tox 1+2 BD MaxOrder ed By: Himanshu Borjas on 05-31-2024 E. coli stx1+stx2 genes DOMONIQUE+probe Ql (Stl) Escherichia coli Stx1 and Stx2 toxin stx1+stx2 genes [Presence] in Stool by DOMONIQUE with Negative [facility] Shigellosis BD MaxOrdered By : Himanshu Borjas on 05-31-2024 Shigella species+EIEC invasion plasmid antigen H ipaH gene DOMONIQUE+probe Ql (Stl) Shigella species+EIEC invasion plasmid antigen H ipaH gene [Presence] in Stool by DOMONIQUE Negative [facility] Comment on above: Shigella sp. test in cludes Shigella species and Enteroinvasive E. coli (EIEC). Stool Bacterial Panelon 05-11 Campylobacter Negative Normal Negative [facility] Comment on above: Result Comment: Camp ylobacter test includes C. jejuni and C. coli. Performed By: #### S TCYRPTOAG, GIARDIA #### [facility] , #### ENT BACT PANEL, OVP, CDT #### [address] Salmonella Species Negative Normal Negative [facility] Comment on above: Result Comment: Test ing performed by RT-PCR PERFORMED BY: [place] [address] PATHOLOGIST OCEANOGRAPHER GEOLOGICAL NAKIA RUBIN M.D. Performed By: #### S TCYRPTOAG, GIARDIA #### [facility] , #### ENT BACT PANEL, OVP, CDT #### [address] Shiga Toxin (E coli O157+oth) Negative Normal Negative [facility] Comment on above: Performed By: #### S TCYRPTOAG, GIARDIA #### [facility] , #### ENT BACT PANEL, OVP, CDT #### [address] Shigella Species Negative Normal Negative [facility] Comment on above: Result Comment: Shig rylie sp. test includes Shigella species and Enteroinvasive E. coli (EIEC). Performed By: #### S TCYRPTOAG, GIARDIA #### [facility] , #### ENT BACT PANEL, OVP, CDT #### [facility] [address] [place] [id number] [facility] CT abdomen pelvis w conon CT abdomen pelvis w con [facility] [address] [place] [address] [place] [address] CT Scan Report Signed Patient: Sly Coy MR#: [id number] : 1955 Acct:[id number] Age/Sex: 68 / F ADM Date: 01/16/24 Loc: CT Room: Type: [facility] Attending Dr: Himanshu Borjas APRN Copies [...] Lowe Jr., D.O.01/16/2024 5:44 PM Dictation Location: [facility]15 Transcribed By: [facility] 01/16/241743 Dictated By: Dallas Lowe Jr, DO 01/16/241741 Signed By: 01/16/241743 Normal [facility] Creatinineon 01-16-2024 GFR/1.73 sq M.predicted MDRD (S/P/Bld) [Vol rate/Area] mL/min/{1.73_m2} Normal [facility] Comment on above: Result Comment: PERF ORMED BY: [place] [address] PATHOLOGIST OCEANOGRAPHER GEOLOGICAL TONY WONG M.D. Performed By: #### C REAT, BUN #### [address] Creatinine [Mass/volume] in Serum or PlasmaOrdered By: Himanshu Borjas on 01-16-2024 Creatinine [Mass/Vol] 0.84 mg/dL Normal 0.60-1.20 [facility] Comment on above: Performed By: #### C REAT, BUN #### [address] No Panel InformationOrdered By: Himanshu Borjas on 01-16-2024 Estimated GFR (CKD-EPI) > 60.0 mL/Min [facility] Creatinine Clearance (Chem N/A [facility] Urea nitrogen [Mass/volume] in Serum or PlasmaOrdered By: Himanshu Borjas on 01-16-2024 Urea nitrogen [Mass/Vol] 15 mg/dL Normal 7-25 [facility] Comment on above: Performed By: #### C REAT, BUN #### [facility] [address] [place] [address] 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..] Arnoldo Souza M.D.11/14/2023 2:00 PM Dictation Location: [place] [address] Transcribed By: JAVIER 11/14/23 1400 Dictated By: Arnoldo Souza II, MD 11/14/23 1358 Signed By: 11/14/23 1400 Normal [facility] Basic Metabolic Profon 01-23 Anion gap [Moles/Vol] 10 mmol/L Normal -17 [facility] Comment on above: Performed By: #### B MP, CBC #### [facility] [address] [place] [address] Ear Nose Throat Surgeon: Brooks Almazan MD BUN/CRE Ratio 30 High 9-20 [facility] Comment on above: Performed By: #### B MP, CBC #### [facility] [address] [place] [address] Ear Nose Throat Surgeon: Brooks Almazan MD Calcium [Mass/Vol] 8.9 mg/dL Normal 8.6-10.4 [facility] Comment on above: Performed By: #### B MP, CBC #### [facility] [address] [place] [address] Ear Nose Throat Surgeon: Brooks Almazan MD Chloride [Moles/Vol] 104 mmol/L Normal 98-107 [facility] Comment on above: Performed By: #### B MP, CBC #### [facility] [address] [place] [address] Ear Nose Throat Surgeon: Brooks Almazan MD CO2 [Moles/Vol] 27 mmol/L Normal 20-31 [facility] Comment on above: Performed By: #### B MP, CBC #### [facility] [address] [place] [address] Ear Nose Throat Surgeon: Brooks Almazan MD Creatinine [Mass/Vol] 0.5 mg/dL Normal 0.5-0.9 [facility] Comment on above: Performed By: #### B GAL, CBC #### [facility] [address] [place] [address] Ear Nose Throat Surgeon: Brooks Almazan MD GFR/1.73 sq M.predicted among non-blacks MDRD (S/P/Bld) [Vol rate/Area] mL/min/{1.73_m2} Normal >60 [facility] Comment on above: Result Comment: These [...] Performed By: #### B GAL, CBC #### [facility] [place] [address] Ear Nose Throat Surgeon: Brooks Almazan MD Glucose [Mass/Vol] 97 mg/dL Normal 70-99 [facility] Comment on above: Performed By: #### B GAL, CBC #### [facility] [place] [address] Ear Nose Throat Surgeon: Brooks Almazan MD Potassium [Moles/Vol] 4.8 mmol/L Normal 3.7-5.3 [facility] Comment on above: Result Comment: SPEC IMEN SLIGHTLY HEMOLYZED, RESULTS MAY BE ADVERSELY AFFECTED. Performed By: #### B GAL, CBC #### [facility] [place] [address] Ear Nose Throat Surgeon: Brooks Almazan MD Sodium [Moles/Vol] 141 mmol/L Normal 135-144 [facility] Comment on above: Performed By: #### B GAL, CBC #### [facility] [address] [place] [address] Ear Nose Throat Surgeon: Brooks Almazan MD Urea nitrogen [Mass/Vol] 15 mg/dL Normal 8-23 [facility] Comment on above: Performed By: #### B MP, CBC #### [facility] [address] [place] [address] Ear Nose Throat Surgeon: Brooks Almazan MD CBCon 01-23-2023 Erythrocyte distribution width (RBC) [Ratio] 12.4 % Normal 11.8-14.4 [facility] Comment on above: Performed By: #### B MP, CBC #### [facility] [place] [address] Ear Nose Throat Surgeon: Brooks Almazan MD Hematocrit (Bld) [Volume fraction] 40.3 % Normal 36.3-47.1 [facility] Comment on above: Performed By: #### B MP, CBC #### [facility] [address] [place] [address]. [place] [address] Ear Nose Throat Surgeon: Brooks Almazan MD Hemoglobin (Bld) [Mass/Vol] 13.1 g/dL Normal 11.9-15.1 [facility] Comment on above: Performed By: #### B MP, CBC #### [facility] [place] [address] Ear Nose Throat Surgeon: Brooks Almazan MD MCH (RBC) [Entitic mass] 30.0 pg Normal 25.2-33.5 [facility] Comment on above: Performed By: #### B MP, CBC #### [facility] [place] [address] Ear Nose Throat Surgeon: Brooks Almazan MD MCHC (RBC) [Mass/Vol] 32.5 g/dL Normal 28.4-34.8 [facility] Comment on above: Performed By: #### B MP, CBC #### [facility] [place] [address] Ear Nose Throat Surgeon: Brooks Almazan MD MCV (RBC) [Entitic vol] 92.4 fL Normal 82.6-102.9 [facility] Comment on above: Performed By: #### B MP, CBC #### [facility] [place] [address] Ear Nose Throat Surgeon: Brooks Almazan MD NRBC Automated 0.0 per 100 WBC Normal 0.0 [facility] Comment on above: Performed By: #### B MP, CBC #### [facility] [address] [place] [address]. [place] [address] Ear Nose Throat Surgeon: Brooks Almazan MD Platelet mean volume (Bld) [Entitic vol] 9.3 fL Normal 8.1-13.5 [facility] Comment on above: Performed By: #### B MP, CBC #### [facility] [address] [place] [address]. [place] [address] Ear Nose Throat Surgeon: Brooks Almazan MD Platelets (Bld) [#/Vol] 234 10*3/uL Normal 138-453 [facility] Comment on above: Performed By: #### B MP, CBC #### [facility] [address] [place] [address]. [place] [address] Ear Nose Throat Surgeon: Brooks Almazan MD RBC (Bld) [#/Vol] 4.36 10*6/uL Normal 3.95-5.11 [facility] Comment on above: Performed By: #### B MP, CBC #### [facility] [address] [place] [address]. [place] [address] Ear Nose Throat Surgeon: Brooks Almazan MD WBC (Bld) [#/Vol] 7.1 10*3/uL Normal 3.5-11.3 [facility] Comment on above: Performed By: #### B MP, CBC #### [facility] [address] [place] [address] Ear Nose Throat Surgeon: Brooks Almazan MD CBC AUTO DIFFon 11-27-2021 BASO # 0.1 103/ul Normal 0.0-0.1 [facility] Comment on above: Performed By: #### C BC #### [facility] [address] [address] [address] Liliam Sanderson Basophils/100 WBC (Bld) 0.7 % Normal 0.2-2.0 [facility] Comment on above: Performed By: #### C BC #### [facility] [address] [place] [address] Dr. Liliam Sanderson EO # 0.2 103/ul Normal 0.0-0.7 [facility] Comment on above: Performed By: #### C BC #### [facility] [address] [place] [address] Dr. Liliam Sanderson Eosinophils/100 WBC (Bld) 2.2 % Normal 0.9-7.0 [facility] Comment on above: Performed By: #### C BC #### [facility] [address] [place] [address] Dr. Liliam Sanderson Erythrocyte distribution width (RBC) [Ratio] 12.0 % Normal 11.0-15.0 [facility] Comment on above: Performed By: #### C BC #### [facility] [address] [place] [address] Dr. Liliam Sanderson Hematocrit (Bld) [Volume fraction] 40.6 % Normal 36.0-48.0 [facility] Comment on above: Performed By: #### C BC #### [facility] [address] [place] [address] Dr. Liliam Sanderson Hemoglobin (Bld) [Mass/Vol] 13.3 g/dL Normal 12.0-16.0 [facility] Comment on above: Performed By: #### C BC #### [facility] [address] [place] [address] Dr. Liliam Sanderson IG # 0.03 10e3/ul Normal 0.00-0.03 [facility] Comment on above: Performed By: #### C BC #### [facility] [address] [place] [address] Dr. Liliam Sanderson IG % 0.3 % Normal 0.0-0.5 [facility] Comment on above: Performed By: #### C BC #### [facility] [address] [place] [address] Dr. Liliam Sanderson LYMPH # 3.2 103/ul Normal 1.2-3.8 [facility] Comment on above: Performed By: #### C BC #### [facility] [address] [place] [address] Dr. Liliam Sanderson Lymphocytes/100 WBC (Bld) 30.7 % Normal 20.5-60.0 [facility] Comment on above: Performed By: #### C BC #### [facility] [address] [place] [address] Dr. Liliam Sanderson MANUAL DIFF REQ NO Normal [facility] Comment on above: Performed By: #### C BC #### [facility] [address] [place] [address] Dr. Liliam Sanderson MCH (RBC) [Entitic mass] 30.2 pg Normal 26.7-34.0 [facility] Comment on above: Performed By: #### C BC #### [facility] [address] [place] [address] Dr. Liliam Sanderson MCHC (RBC) [Mass/Vol] 32.8 g/dL Normal 29.9-35.2 [facility] Comment on above: Performed By: #### C BC #### [facility] [address] [place] [address] Dr. Liliam Sanderson MCV (RBC) [Entitic vol] 92.1 fL Normal 81.0-99.0 [facility] Comment on above: Performed By: #### C BC #### [facility] [address] [place] [address] Dr. Liliam Sanderson MONO # 0.8 103/ul Normal 0.3-0.8 [facility] Comment on above: Performed By: #### C BC #### [facility] [address] [place] [address] Dr. Liliam Sanderson Monocytes/100 WBC (Bld) 7.5 % Normal 1.7-12.0 [facility] Comment on above: Performed By: #### C BC #### [facility] [address] [place] [address] Dr. Liliam Sanderson NEUT # 6.1 103/ul Normal 1.4-6.5 [facility] Comment on above: Performed By: #### C BC #### [facility] [address] [place] [address] Dr. Liliam Sanderson Neutrophils/100 WBC (Bld) 58.6 % Normal 43.0-75.0 [facility] Comment on above: Performed By: #### C BC #### [facility] [address] [place] [address] Dr. Liliam Sanderson Platelet mean volume (Bld) [Entitic vol] 8.8 fL Critically low 9.5-13.5 [facility] Comment on above: Performed By: #### C BC #### [facility] [address] [place] [address] Dr. Liliam Sanderson PLT 264 103/ul Normal 150-[address] [facility] Comment on above: Performed By: #### C BC #### [facility] [address] [place] [address] Dr. Liliam Sanderson RBC 4.41 106/ul Normal 4.20-5.40 [facility] Comment on above: Performed By: #### C BC #### [facility] [address] [place] [address] Dr. Liliam Sanderson WBC 10.4 103/ul Normal 4.0-11.0 [facility] Comment on above: Performed By: #### C BC #### [facility] [address] [place] [address] Dr. Liliam Snaderson LIPID PROFILEon 11-27-2021 CHOL-HDL RATIO NORM SEE BELOW Normal [facility] Comment on above: Result Comment: 3.3 - 4.4 LOW RISK 4.4 - 7.1 AVERAGE RISK 7.1 - 11.0 MODERATE RISK >11.0 HIGH RISK Performed By: #### C MP, LIPID #### [facility] [address] [address] [address] Liliam Sanderson Cholesterol [Mass/Vol] 204 mg/dL Critically high <=200 [facility] Comment on above: Performed By: #### C MP, LIPID #### [facility] [address] [address] [address] Liliam Sanderson Cholesterol in HDL [Mass/Vol] 46 mg/dL Normal 40-60 [facility] Comment on above: Performed By: #### C MP, LIPID #### [facility] [address] [address] [address] Liliam Sanderson Cholesterol in LDL [Mass/Vol] 125.4 mg/dL Normal [facility] Comment on above: Performed By: #### C MP, LIPID #### [facility] [address] [address] [address] Liliam Sanderson Cholesterol.total/Melony sterol in HDL [Mass ratio] 4.4 {ratio} Normal [facility] Comment on above: Performed By: #### C MP, LIPID #### [facility] [address] [address] [address] Liliam Sanderson HDL NORMAL > or = 60 mg/dl - LOW CARDIOVASCULAR RISK <40 mg/dl - HIGH CARDIOVASCULAR RISK Normal [facility] Comment on above: Performed By: #### C MP, LIPID #### [facility] [address] [address] [address] Liliam Sanderson LDL CALC NORMAL SEE BELOW Normal [facility] Comment on above: Result Comment: <100 mg/dl OPTIMAL 100 - 129 mg/dl NEAR OR ABOVE OPTIMAL 130 - 159 mg/dl BORDERLINE HIGH 160 - 189 mg/dl HIGH >190 mg/dl VERY HIGH Performed By: #### C MP, LIPID #### [facility] [address] [place] [address] Dr. Liliam Sanderson Triglyceride [Mass/Vol] 163 mg/dL Critically high <=150 [facility] Comment on above: Performed By: #### C MP, LIPID #### [facility] [address] [place] [address] Dr. Liliam Sanderson VLDL CALC 32.6 mg/dL Normal [facility] Comment on above: Performed By: #### C MP, LIPID #### [facility] [address] [place] [address] Dr. Liliam Sanderson PROF 14(COMP METB)on 022 Albumin [Mass/Vol] 4.1 g/dL Normal 3.4-5.0 [facility] Comment on above: Performed By: #### C MP, LIPID #### [facility] [address] [place] [address] Dr. Liliam Sanderson Albumin/Globulin [Mass ratio] 1.2 {ratio} Normal [facility] Comment on above: Performed By: #### C MP, LIPID #### [facility] [address] [place] [address] Dr. Liliam Sanderson ALP [Catalytic activity/Vol] 61 U/L Normal 46-116 [facility] Comment on above: Performed By: #### C MP, LIPID #### [facility] [address] [place] [address] Dr. Liliam Sanderson ALT [Catalytic activity/Vol] 20 U/L Normal 14-59 [facility] Comment on above: Performed By: #### C MP, LIPID #### [facility] [address] [place] [address] Dr. Liliam Sanderson Anion gap [Moles/Vol] 11.4 mmol/L Normal [facility] Comment on above: Performed By: #### C MP, LIPID #### [facility] [address] [place] [address] Dr. Liliam Sanderson AST [Catalytic activity/Vol] 12 U/L Critically low 15-37 [facility] Comment on above: Performed By: #### C MP, LIPID #### [facility] [address] [place] [address] Dr. Liliam Sanderson Bilirubin [Mass/Vol] 0.5 mg/dL Normal 0.2-1.0 [facility] Comment on above: Performed By: #### C MP, LIPID #### [facility] [address] [place] [address] Dr. Liliam Sanderson Calcium [Mass/Vol] 8.9 mg/dL Normal 8.5-10.1 [facility] Comment on above: Performed By: #### C MP, LIPID #### [facility] [address] [place] [address] Dr. Liliam Sanderson Chloride [Moles/Vol] 102 mmol/L Normal 98-107 [facility] Comment on above: Performed By: #### C MP, LIPID #### [facility] [address] [place] [address] Dr. Liliam Sanderson CO2 [Moles/Vol] 28.3 mmol/L Normal 21.0-32.0 [facility] Comment on above: Performed By: #### C MP, LIPID #### [facility] [address] [place] [address] Dr. Liliam Sanderson Creatinine [Mass/Vol] 0.66 mg/dL Normal 0.55-1.02 [facility] Comment on above: Performed By: #### C MP, LIPID #### [facility] [address] [place] [address] Dr. Liliam Sanderson EGFR-AF GABONESE >60 Normal >=60 [facility] Comment on above: Performed By: #### C MP, LIPID #### [facility] [address] [place] [address] Dr. Liliam Sanderson EGFR-NON AF GABONESE >60 Normal >=60 [facility] Comment on above: Performed By: #### C MP, LIPID #### [facility] [address] [place] [address] Dr. Liliam Sanderson Globulin (S) [Mass/Vol] 3.4 g/dL Normal [facility] Comment on above: Performed By: #### C MP, LIPID #### [facility] [address] [place] [address] Dr. Liliam Sanderson Glucose [Mass/Vol] 100 mg/dL Normal 74-106 [facility] Comment on above: Performed By: #### C MP, LIPID #### [facility] [address] [place] [address] Dr. Liliam Sanderson Potassium [Moles/Vol] 3.7 mmol/L Normal 3.5-5.1 [facility] Comment on above: Performed By: #### C MP, LIPID #### [facility] [address] [place] [address] Dr. Liliam Sanderson Protein [Mass/Vol] 7.5 g/dL Normal 6.4-8.2 [facility] Comment on above: Performed By: #### C MP, LIPID #### [facility] [address] [place] [address] Dr. Liliam Sanderson Sodium [Moles/Vol] 138 mmol/L Normal 136-145 [facility] Comment on above: Performed By: #### C MP, LIPID #### [facility] [address] [place] [address] Dr. Liliam Sanderson Urea nitrogen [Mass/Vol] 14.0 mg/dL Normal 7.0-18.0 [facility] Comment on above: Performed By: #### C MP, LIPID #### [facility] [address] [place] [address] Dr. Liliam Sanderson Urea nitrogen/Creatinine [Mass ratio] 21.2 mg/mg Normal [facility] Comment on above: Performed By: #### C MP, LIPID #### [facility] [address] [place] [address] Dr. Liliam Sanderson Vital Signs Date Time Vital Sign Value Performing Clinician Facility 09-10-2024 15:01-0500 Body height 152.4 cm [facility] 09-10-2024 15:01-0500 Body mass index (BMI) [Ratio] 23.2 kg/m2 [facility] 09-10-2024 15:01-0500 Body weight 53.9 kg [facility] 08-27-2024 13:52-0500 Blood Pressure Location JASMIN LANEAMANKRA [facility] 08-27-2024 13:52-0500 Diastolic blood pressure 78 mm[Hg] JASMINYASMINE MCNAMARAAH-AMANKRA [facility] 08-27-2024 13:52-0500 Heart rate 66 /min JASMIN NKANSAH-AMANKRA [facility] 08-27-2024 13:52-0500 Systolic blood pressure 140 mm[Hg] JASMIN NKANSAH-AMANKRA [facility] 08-05-2024 11:05-0500 Body mass index (BMI) [Ratio] 22.3 kg/m2 Micaela Monroy MD Work Phone: [facility] 08-05-2024 11:05-0500 Body temperature 97 [degF] Micaela Monroy MD Work Phone: [facility] 08-05-2024 11:05-0500 Body weight 53.52 kg Micaela Monroy MD Work Phone: [facility] 08-05-2024 11:05-0500 Diastolic blood pressure 45 mm[Hg] Micaela Monroy MD Work Phone: [facility] 08-05-2024 11:05-0500 Heart rate 56 /min Micaela Monroy MD Work Phone: [facility] 08-05-2024 11:05-0500 SaO2% (BldA) [Mass fraction] 98 % Micaela Monroy MD Work Phone: [facility] 08-05-2024 11:05-0500 Systolic blood pressure 108 mm[Hg] Micaela Monroy MD Work Phone: [facility] 07-30-2024 15:32-0500 Body height 152.4 cm [facility] 07-30-2024 15:32-0500 Body mass index (BMI) [Ratio] 23.2 kg/m2 [facility] 07-30-2024 15:32-0500 Body weight 53.97 kg [facility] 07-30-2024 15:32-0500 Diastolic blood pressure 76 mm[Hg] [facility] 07-30-2024 15:32-0500 Heart rate 68 /min [facility] 07-30-2024 15:32-0500 Systolic blood pressure 132 mm[Hg] [facility] 07-24-2024 08:55-0500 Blood Pressure Location Elizabeth Lue [facility] 07-24-2024 08:55-0500 Diastolic blood pressure 68 mm[Hg] Elizabeth Lue [facility] 07-24-2024 08:55-0500 Heart rate 68 /min Elizabeth Lue [facility] 07-24-2024 08:55-0500 Systolic blood pressure 112 mm[Hg] Elizabeth Lue [facility] 07-01-2024 11:39-0500 Body height 154.9 cm Joey Bolden MD Work Phone: [facility] 07-01-2024 11:39-0500 Body mass index (BMI) [Ratio] 22.98 kg/m2 Joey Bolden MD Work Phone: [facility] 07-01-2024 11:39-0500 Body weight 55.16 kg Joey Bolden MD Work Phone: [facility] 07-01-2024 11:39-0500 Diastolic blood pressure 72 mm[Hg] Joey Bolden MD Work Phone: [facility] 07-01-2024 11:39-0500 Heart rate 60 /min Joey Bolden MD Work Phone: [facility] 07-01-2024 11:39-0500 SaO2% (BldA) [Mass fraction] 100 % Joey Bolden MD Work Phone: [facility] 07-01-2024 11:39-0500 Systolic blood pressure 140 mm[Hg] Joey Bolden MD Work Phone: [facility] 05-30-2024 09:26-0500 Body height 152.4 cm [facility] 05-30-2024 09:26-0500 Body mass index (BMI) [Ratio] 24 kg/m2 [facility] 05-30-2024 09:26-0500 Body weight 55.96 kg [facility] 05-30-2024 09:26-0500 Diastolic blood pressure 68 mm[Hg] [facility] 05-30-2024 09:26-0500 Heart rate 75 /min [facility] 05-30-2024 09:26-0500 Systolic blood pressure 122 mm[Hg] [facility] 03-05-2024 15:04-0400 Body height 152.4 cm COUNCILMANKhushi Martínez Work Phone: [facility] 03-05-2024 15:04-0400 Body mass index (BMI) [Ratio] 24.4 kg/m2 COUNCILMANKhushi Martínez Work Phone: [facility] 03-05-2024 15:04-0400 Body weight 56.69 kg COUNCILMANKhushi Martínez Work Phone: [facility] 01-02-2024 14:02-0400 Body height 152.4 cm COUNCILMANKhushi Martínez Work Phone: [facility] 01-02-2024 14:02-0400 Body mass index (BMI) [Ratio] 25.4 kg/m2 COUNCILMANKhushi Martínez Work Phone: [facility] 01-02-2024 14:02-0400 Body weight 59 kg RISA Martínez Work Phone: [facility] 10-26-2023 11:18-0400 Body height 153.67 cm [facility] 10-26-2023 11:18-0400 Body mass index (BMI) [Ratio] 25 kg/m2 [facility] 10-26-2023 11:18-0400 Body weight 58.96 kg [facility] 05-10-2023 09:48-0400 Blood Pressure Location Elizabeth Lue [facility] 05-10-2023 09:48-0400 Diastolic blood pressure 67 mm[Hg] Elizabeth Lue [facility] 05-10-2023 09:48-0400 Heart rate 73 /min Elizabeth Lue [facility] 05-10-2023 09:48-0400 Respiratory rate 16 /min Elizabeth Lue [facility] 05-10-2023 09:48-0400 Systolic blood pressure 101 mm[Hg] Elizabeth Lue [facility] 02-14-2023 14:00-0400 Body height 153.67 cm Himanshu Borjas Other [employer] [facility] [employer] Other 02-14-2023 14:00-0400 Body mass index (BMI) [Ratio] 24.78 kg/m2 Himanshu Borjas Other [employer] Other 02-14-2023 14:00-0400 Body weight 58.51 kg Himanshu Borjas Other [employer] Other 02-14-2023 14:00-0400 Diastolic blood pressure 84 mm[Hg] Himanshu Scovanner Other [employer] Other 02-14-2023 14:00-0400 Systolic blood pressure 142 mm[Hg] Himanshu Scovanner Other [employer] Other 11-15-2022 16:30-0400 Body height 153.67 cm Himanshu Scovanner Other [employer] Other 11-15-2022 16:30-0400 Body mass index (BMI) [Ratio] 26.27 kg/m2 Himanshu Scovanner Other [employer] Other 11-15-2022 16:30-0400 Body weight 62.05 kg Himanshu Scovanner Other [employer] Other 11-15-2022 16:30-0400 Diastolic blood pressure 76 mm[Hg] Himanshu Scovanner Other [employer] Other 11-15-2022 16:30-0400 Systolic blood pressure 128 mm[Hg] Himanshu Scovanner Other [employer] Other Encounters Encounter Date Encounter Type Care Provider Facility Start: 09-10-2024 End: 09-10-2024 ambulatory [facility] Work Phone: Start: 09-10-2024 End: 09-10-2024 Patient encounter procedure [facility] Work Phone: Start: 08-27-2024 End: 08-27-2024 ambulatory JASMIN MARIA ALEJANDRA-AMANKRA Facility:[facility] Start: 08-27-2024 End: 08-27-2024 Patient encounter procedure JASMIN LANE-AMFRANKIRA [facility] Start: 08-13-2024 End: 08-13-2024 ambulatory JASMIN BHANDARI Facility:[facility] Start: 08-13-2024 End: 08-13-2024 Patient encounter procedure JASMIN BHANDARI [facility] Start: 08-07-2024 End: 08-07-2024 Telephone encounter Concepción Murphy RN [facility] Comment on above: Surgical Or Dental C learance Start: 08-05-2024 End: 08-05-2024 [facility] Start: 08-05-2024 End: 08-05-2024 Patient encounter procedure Micaela Monroy MD Work Phone: General Surgery Comment on above: Hiatal hernia (Prima ry Dx) Start: 07-30-2024 End: 07-30-2024 ambulatory NON STAFF [facility] Work Phone: Start: 07-30-2024 End: 07-30-2024 Patient encounter procedure [facility] Work Phone: Start: 07-24-2024 ambulatory Elizabeth M. Lue Facility: [id number] Start: 07-24-2024 End: 07-24-2024 ambulatory Elizabeth M. Lue Facility:[facility] Start: 07-24-2024 End: 07-24-2024 Patient encounter procedure Elizabeth M. Lue [facility] Start: 07-01-2024 End: 07-01-2024 Office outpatient visit 25 minutes Joey Bolden MD Work Phone: [facility] Comment on above: Hx of right coronary artery stent placement (Primary Dx); Primary hypertension; Hyperlipidemia, unspecified hyperlipidemia type; Smoker Start: 07-01-2024 End: 07-01-2024 [facility] Start: 06-28-2024 End: 06-28-2024 Telephone encounter Clover Wyman CMA [facility] Start: 05-31-2024 End: 05-31-2024 Telephone encounter Micaela Monroy MD Work Phone: Colorectal Surgery Start: 05-31-2024 End: 05-31-2024 Patient encounter procedure [facility] [place] Work Phone: Start: 05-31-2024 End: 05-31-2024 ambulatory Himanshu Borjas Facility:[facility] Start: 05-30-2024 End: 05-30-2024 ambulatory [facility] Work Phone: Start: 05-30-2024 End: 05-30-2024 Patient encounter procedure [facility] Work Phone: Start: 03-05-2024 End: 03-05-2024 ambulatory COUNCILMAN Nadira Davidlim Work Phone: [facility] Work Phone: Start: 03-05-2024 End: 03-05-2024 Patient encounter procedure COUNCILMAN Nadira Anglim Work Phone: [facility] Work Phone: Start: 02-01-2024 End: 02-01-2024 Refill Los Lee MD Work Phone: [facility] Comment on above: Med Refill Start: 01-30-2024 End: 01-30-2024 ambulatory [place] J Galea Facility:[facility] Start: 01-30-2024 End: 01-30-2024 Patient encounter procedure [place] J Galea [facility] Start: 01-24-2024 End: 01-24-2024 ambulatory Elizabeth Lott Facility: [facility] Start: 01-24-2024 End: 01-24-2024 Patient encounter procedure [facility] Start: 01-16-2024 End: 01-16-2024 Patient encounter procedure COUNCILMAN Nadira Davidghada Work Phone: [facility] [place] Work Phone: Start: 01-16-2024 End: 01-16-2024 ambulatory COUNCILMAN Nadira Davidlim Work Phone: [facility] Work Phone: Start: 01-02-2024 End: 01-02-2024 ambulatory COUNCILMAN Nadira Hernandezlim Work Phone: [facility] Work Phone: Start: 01-02-2024 End: 01-02-2024 Patient encounter procedure COUNCILMAN Nadira Davidlim Work Phone: [facility] Work Phone: Start: 12-08-2023 End: 12-08-2023 ambulatory NADIRA MARTÍNEZ [facility] Start: 11-14-2023 End: 11-14-2023 Patient encounter procedure COUNCILMAN Nadira Davidlim Work Phone: [facility] [place] Work Phone: Start: 11-14-2023 End: 11-14-2023 ambulatory COUNCILMAN Nadira Hernandezlim Work Phone: [facility] Work Phone: Start: 10-26-2023 End: 10-26-2023 ambulatory [facility] Work Phone: Start: 10-26-2023 End: 10-26-2023 Patient encounter procedure [facility] Work Phone: Start: 07-24-2023 End: 07-24-2023 Patient encounter procedure Elizabeth Lott [facility] Start: 07-05-2023 Refill Juan David sser COUNCILMAN-CAREER COORDINATOR Work Phone: [facility] Comment on above: Med Refill Start: 05-10-2023 End: 05-10-2023 Patient encounter procedure Elizabeth Lott [facility] Start: 02-14-2023 End: 02-14-2023 ambulatory Himanshu Scbolaner Other [employer] Other Start: 02-14-2023 Office outpatient vi sit 15 minutes Himanshu Scovanner [facility] Start: 01-23-2023 End: 01-23-2023 [facility] Start: 11-15-2022 End: 11-15-2022 ambulatory Himanshu Scovanner Other [employer] Other Start: 11-15-2022 Office outpatient ne w 30 minutes Himanshu Scovanner [facility] Start: 09-30-2022 End: 09-30-2022 ambulatory [facility] Facility:[facility] Start: 06-21-2022 End: 06-24-2022 ambulatory CHANEL HARRELL [facility] Start: 06-21-2022 End: 06-23-2022 Subsequent hospital visit by physician [facility] [address] Scan Comment on above: Chest pain, unspecif ied type; Dizziness; Abnormal stress ECG Start: 11-27-2021 End: 11-28-[address] [facility] Facility:[facility] Procedures Date Procedure Procedure Detail Performing [...] RSV Vaccine (1 - 1-dose 75+ series) [facility] Start: 01-23-2026 Diabetes Screening Diabetes Screenin g [facility] Start: 07-01-2025 Adult BMI Screening Adult BMI Screen ing [facility] Start: 07-01-2025 Tobacco Screening Tobacco Screening [facility] Start: 12-07-2024 Screening for malign ant neoplasm of breast Mammogram Screening [facility] Start: 07-10-2024 Advance Directive Discussion Advance Directive Discussion [facility] Start: 07-01-2024 End: 07-01-2024 Patient encounter procedure 07/01/2024 12:00 PM EST Office Visit [facility] [address] [place] [id number] Joey Bolden MD [address] [place] [address] [facility] Start: 06-19-2024 Adult BMI Screening Adult BMI Screen ing [facility] Start: 06-19-2024 Tobacco Screening Tobacco Screening [facility] Start: 05-30-2024 Patient referral [facility] Work Phone: Start: 03-10-2024 Covid-19 Vaccine ( season) Covid-19 Vaccine ( season) [facility] Start: 03-10-2024 Influenza vaccination [facility] Start: 01-02-2024 Patient referral [facility] Work Phone: Start: 08-17-2023 Tobacco Counseling Tobacco Counselin g [facility] Start: 07-10-2023 Advance Directive Discussion Advance Directive Discussion [facility] Start: 03-10-2023 Influenza vaccination Influenza Vacc ine [facility] Start: 06-15-2022 Annual Wellness Visi t (AWV) Annual Wellness Visit (AWV) [facility] Start: 02-07-2022 Influenza vaccination Flu vaccine (# 1) [facility] Start: 11-09-2021 Diabetes Screening Diabetes Screenin g [facility] Start: 2020 Fall Risk Screening Fall Risk Screen ing [facility] Start: 2020 Pneumococcal 65+ yea rs Vaccine (1 - PCV) Pneumococcal 65+ years Vaccine (1 - PCV) [facility] Start: 2020 Pneumococcal Vaccine : 65+ (1 of 1 - PCV) Pneumococcal Vaccine: 65+ (1 of 1 - PCV) [facility] Start: 2020 Screening for osteoporosis Bone Density Screening [facility] Start: 2010 Screening for osteoporosis DEXA (modify frequency per FRAX score) [facility] Start: 2005 Administration of varicella zoster vaccine Zoster (Shingles) Vaccine (1 of 2) [facility] Start: 2005 Pneumococcal Vaccine : 50+ (1 of 1 - PCV) Pneumococcal Vaccine: 50+ (1 of 1 - PCV) [facility] Start: 2005 Screening for malign ant neoplasm of breast Breast cancer screen [facility] Start: 2005 Shingles vaccine (1 of 2) Hinojosa gles vaccine (1 of 2) [facility] Start: 2005 Shingrix Vaccine (1 of 2) Hinojosa grix Vaccine (1 of 2) [facility] Start: 2000 Lipid panel Lipid Screening [facility] Start: 2000 Screening for malign ant neoplasm of colon [facility] Start: 1995 Lipid panel Lipids [facility] Start: 1995 Screening for malign ant neoplasm of breast Mammogram Screening [facility] Start: 1974 DTaP,Tdap and Td Vac cines (1 - Tdap) DTaP,Tdap and Td Vaccines (1 - Tdap) [facility] Healthcare Start: 1974 DTaP/Tdap/Td vaccine (1 - Tdap) DTaP/Tdap/Td vaccine (1 - Tdap) [facility] Start: 1974 Urine microalbumin profile DTaP,Tdap,Td Vaccine (1 - Tdap) [facility] Start: 1973 Anxiety Screening Anxiety Screening [facility] Start: 1973 Depression Screening Depression Scre [facility] Start: 1973 Hepatitis C screening [facility] Start: 1967 Depression Screen Depression Screen [facility] Start: 1967 Depression Screening Depression Scre ening [facility] Start: 03-06-1956 COVID-19 Vaccine (#1) COVID-19 Vacci ne (#1) [employer] Start: 1955 Medicare Annual Well ness Visit Medicare [facility] Start: 1955 Tobacco Counseling Tobacco Counselin g [facility] End: 01-31-2025 CBC panel - Blood by Automated count CBC Lab Routine Medication management 1 Occurrences starting 02/01/2024 until 01/31/2025 [facility] Work Phone: Comment on above: 1 Occurrences starti ng 02/01/2024 until 01/31/2025 Cryptosporidium sp A g [Presence] in Stool by Immunoassay [facility] CT Abdomen and Pelvi s W contrast IV [facility] End: 06-21-2022 CTA CORON EJECT FRAC WALL MOTION CTA CORON EJECT FRAC WALL MOTION Imaging Routine Chest pain, unspecified type Dizziness Abnormal stress ECG 1 Occurrences starting 06/21/2022 until 06/21/2022 [facility] Work Phone: Comment on above: 1 Occurrences starti ng 06/21/2022 until 06/21/2022 Fluoroscopy of esophagus [facility] Giardia lamblia Ag [Presence] in Stool by Immunoassay [facility] End: 07-01-2025 Lipid 1996 panel - Serum or Plasma Lipid profile Lab Routine Primary hypertension 1 Occurrences starting 07/01/2024 until 07/01/2025 [facility] Work Phone: Comment on above: 1 Occurrences starti ng 07/01/2024 until 07/01/2025 Patient referral [facility] Work Phone: [facility] Immunizations Immunization Date Immunization Notes Care Provider Kenzie mancia 09-30-2022 tetanus toxoid, redu yonathan diphtheria toxoid, and acellular pertussis vaccine, adsorbed JASMINYASMINE LANE-AMJUSTIN [facility] 03-12-2021 SARS-CoV-2 (COVID-19 ) mRNA BNT-162b2 vax JASMIN BHANDARI [facility] Comment on above: Result Comment: 2024: [id number] 02-19-2021 SARS-CoV-2 (COVID-19 ) mRNA BNT-162b2 miracle BHANDARI [facility] Comment on above: Result Comment: 2024: [id number] Payers Date Payer Category Payer Medicare [id number] 2023 Self-pay 2021 Medicare [id number] 2021 Medicare HMO [employer] MEDICARE [id number] 1959 Medicare [id number] 1955 Unknown [id number] [id number] 1955 Unknown [id number] [id number] 1955 Unknown [id number] 2.16.840.1.585210.3.579.2.593 1955 Unknown [id number] 2.16.840.1.884310.3.579.2.177 1955 Unknown [id number] [id number] 6 1955 Unknown [id number] 2.16.840.1.848291.3.579.2.128 6 1955 Unknown [id number] 2.16.840.1.983209.3.579.2.727 1955 Unknown [id number] 2.16.840.1.360707.3.579.2.727 1955 Unknown [id number] 2.16.840.1.830835.3.579.2.727 1955 Unknown [id number] 2.16.840.1.230011.3.579.2.727 1955 Unknown [id number] [id number] Unknown HCAP/HFA/FAP Active [id number] Unknown [id number] [id number] Unknown [id number] 2.16.840.1.654732.3.579.2.531 Unknown [id number] [id number] Social History Date Type Detail Facility Tobacco smoking stat [facility] Tobacco smoking consumption unknown [facility] [employer] Phone: Start: 1955 Sex Assigned At Not on file [facility] [employer] Phone: Start: 08-19-2020 End: 12-08-2023 Sex Assigned At [facility] Start: 05-10-2023 End: 08-27-2024 Tobacco smoking status Light tobacco smoker (finding) [facility] [place] Start: 12-20-2022 End: 07-30-2024 Tobacco smoking status NHIS Smoker (finding) [facility] Start: 1955 Sex Assigned At Female F [facility] Start: 05-30-2024 End: 09-10-2024 Sex Female (finding) [facility] Start: 10-03-2014 End: 08-05-2024 Tobacco smoking status NHIS Ex-smoker [facility] Start: 12-20-1975 End: 12-19-2012 History of tobacco use Cigarette Smoker [facility] Start: 10-03-2014 End: 08-19-2020 Cigarettes smoked current (pack per day) - Reported 0.5 [facility] Start: 10-03-2014 End: 04-27-2022 Tobacco use and exposure Smokeless tobacco non-user [facility] Start: 10-21-2014 End: 08-05-2024 Alcoholic beverage intake Current non-drinker of alcohol (finding) [facility] Start: 04-27-2022 Tobacco smoking stat us NHIS Smokes tobacco daily [facility] Start: 06-19-2023 End: 12-08-2023 Alcoholic beverage intake Ex-drinker (finding) [facility] Childcare Unknown [facility] Start: 04-27-2022 Tobacco Comment has been decre asing daily [facility] Start: 05-06-2022 Alcohol Comment social--rare [facility] Functional Status Date Assessment Result Facility 08-27-2024 Functional Status N/A [facility] 07-24-2024 Functional Status N/A [facility] 05-10-2023 Functional Status N/A [facility] Clinical Notes 11-15-2022 to 08-27-2024 Telephone Encounter [...] require a prescription. You can also purchase taaz-pxp-bszxeby medicines. Medicines may have nicotine in them [...] and encouragement. Call telephone quitlines, such as 0-183-NGHE-NOW, reach out to support groups, or work [...] provider. Document Revised: 06/17/2022 Document Reviewed: 06/17/2022 [employer] Patient Education 2023 [employer] 08/27/2024 14:10:40 How to Use a Vaginal [...] vagina. Follow these instructions at home: Take ngjh-fwv-gcggzan and prescription medicines only as told by [...] provider. Document Revised: 12/24/2020 Document Reviewed: 12/24/2020 [employer] Patient Education 2023 [employer] Follow Up Care 08/14/2024 09:26:00 With:JASMIN BHANDARI MD, URL Address: When: Unknown [facility] Ezequiel 08-27-2024 Note Patient Education Obstetrics [...] Follow these instructions at home: ??? Take ijyc-yie-tfvdtvg and prescription medicines only as told by [...] provider. Document Revised: 12/24/2020 Document Reviewed: 12/24/2020 [employer] Patient Education ? 2023 [employer] Pulmonary Medicine Steps to Quit Smoking [...] provider if you (more content not included)... [facility] 08-07-2024 Miscellaneous Notes Surgeon: Dr. Elizabeth Lott Type of surgery: Rt ESWL for kidney stones Date of surgery: 10/02/24 Surgery location: [facility] Type of anesthesia: General On a blood thinner?: N/A On an antiplatelet?: ASA Plavix- Would like to hold both for 5-7 days Had CARRILLO to [facility] 01/2023 Date of last EK07/01/24 History of CVA/TIA, DVT/PE? None known Last saw Dr. Bolden 07/01/24 Noted. Moderate risk, risk non prohibitive. Can discontinue aspirin indefinitely. Hold Plavix for 5-7 days prior to procedure and resume when cleared afterwards. Thank you Note created and faxed documented in this encounter [facility] 08-07-2024 Telephone encounter Note Surgeon: Dr. Elizabeth Lott Type of surgery: Rt ESWL for kidney stones Date of surgery: 10/02/24 Surgery location: [facility] Type of anesthesia: General On a blood thinner?: N/A On an antiplatelet?: ASA Plavix- Would like to hold both for 5-7 days Had CARRILLO to [facility] 01/2023 Date of last EK07/01/24 History of CVA/TIA, DVT/PE? None known Last saw Dr. Bolden 07/01/24 [facility] [employer] 08-07-2024 Telephone encounter Note Noted. Moderate risk, risk non prohibitive. Can discontinue aspirin indefinitely. Hold Plavix for 5-7 days prior to procedure and resume when cleared afterwards. Thank you [facility] [employer] 08-07-2024 Telephone encounter Note Note created and faxed [facility] [employer] 08-05-2024 Note HNO ID: [id number] Author: MICAELA MONROY MD Service: ? Author [...] with more than 50% of the total gstn-lm-yqbq time of the visit in counseling / coordination of care. [facility] 08-05-2024 History of Presen t illness [...] with more than 50% of the total alev-zw-zpmn time of the visit in counseling / coordination of care. documented in this encounter [facility] 07-30-2024 Evaluation note Diagnosis Onset Date Resolution GERD (gastroesophageal reflux disease) acute July 30 3:30pm Irritable bowel syndrome with diarrhea acute July 112024 3:30pm Nausea acute July 30, 2024 3:30pm Diarrhea acute September 10 3:00pm Sliding hiatal hernia acute Sep 3:00pm [facility] Work Phone: 1(103) 448-493501-15-2025 Hospital Discharge instructions Patient Education 07/24/2024 09:48:55 [...] include: ?8 oz (237 mL) of milk, lerynfh-wqrjqzrjkjnp-snmbv milk, and calcium- fortifiedfruit juice. Calcium-fortified means [...] ?Spinach (cooked), rhubarb, beets, sweet potatoes, and Austrian chard. ?Peanuts. ?Potato chips, austrian fries, and baked potatoes with skin on. ?Nuts and nut products. ?Chocolate. If you regularly take a diuretic medicine, make sure to eat at least 1 or 2 servings of fruits or vegetables that are high in potassium each day. These include: ?Avocado. ?Banana. ?Simpson, prune, carrot, or tomato juice. ?Baked potato. [...] magnesium, fish oil, or vitamin B6. Take ejvx-fby-bmmqxru and prescription medicines only as told by [...] Casseroles. Pizza. Lasagna. Frozen meals. Potato chips. Estonian fries. The items listed above may not [...] provider. Document Revised: 10/06/2022 Document Reviewed: 10/06/2022 [employer] Patient Education 2023 [employer] Follow Up Care 04/24/2024 16:03:36 With:Elizabeth Lott MD, URL, URO Address: When: Unknown Comments:Schedule [facility]25 NotePatient Education Nephrology Dietary Guidelines [...] ? 8 oz (237 mL) of milk, fsuxdyc-rxgwcavhayht-rruxj milk, and calcium- fortifiedfruit juice. Calcium-fortified means [...] Spinach (cooked), rhubarb, beets, sweet potatoes, and Austrian chard. ? Peanuts. ? Potato chips, austrian fries, and baked potatoes with skin on. ? Nuts and nut products. ? Chocolate. ??? If you regularly take a diuretic medicine, make sure to eat at least 1 or 2 servings of fruits or vegetables that are high in potassium each day. These include: ? Avocado. ? Banana. ? Simpson, prune, carrot, or tomato juice. ? Baked [...] fish oil, or vitamin B6. ??? Take spie-xvz-fkwcliu and prescription medicines only as told by your health (more content not included)...[facility]12-23-2024 History of Present illness Narrative* Joey Bolden MD - 07/01/2024 12:00 PM EST Sly Coy Date of visit: 07/01/2024 Date of : 1955 Age: 68 y.o. 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 PCP: [facility] Edith Referring Physician: Nadira Martínez, COUNCILMAN-CAREER COORDINATOR [address] [place] [address] documented [facility] Instructions* Patient Instructions* Suzette Haskins CMA - 07/01/2024 12:00 PM EST Are You Ready To Kick The Habit? Free Tobacco Cessation Resources [facility] Services [facility] provide all employees with free tobacco cessation services that include: Counseling to understand nicotine addiction Education about medications that can help you successfully quit Assistance with developing a plan to quit Call to set up an individual appointment or find out when group classes will be held: [facility]: [phone] [facility]: [phone] [facility]: [phone] [facility]: [phone] Quit Smoking Action Plan and Resources [facility] offers an eight-week, online smoking cessation plan to all [facility] employees, regardless of whether [place] is your medical insurance provider. Go to www.[employer].org/employeewellness and click the Health Risk Assessment and Resources link to get started. In the Kids Quizine menu, click Action Plans instead of Health Risk Assessment to access the Quit Smoking Action Plan. Additional smoking cessation resources are also available to all [facility] employees on the W[employer]ar[employer] web page at www.[employer]/quitsmoking. [place] Tobacco Cessation Program If [employer] is your medical insurance provider, there are more free resources available to you, including: No copays or deductibles on local tobacco cessation counseling services to help you quit Prescription assistance for tobacco cessation medications to help you quit For details about the tobacco cessation program available to [employer] members, go to www.[employer] (Search: Tobacco Cessation Program). [place] Tobacco Quit Line 6-308-LOJJ-NOW ( ) is a toll-free, telephonic service that helps [place] residents quit smoking and using tobacco. It is staffed by experts who tailor a quit plan for you and provide you with advice. [place] Tobacco Quit Line 1-656-QIRI-NOW ( ) is a toll-free, telephonic service that helps [place] residents quit smoking and using tobacco. It is staffed by experts who tailor a quit plan for you and provide you with advice. Two weeks of nicotine replacement therapy may be provided at no charge, if needed. Additional Resources These national organizations also offer free information and resources to help you quit tobacco: [place] [employer]--www.cancer.org/healthy/stayawayfromtobacco [place] [employer]--www.heart.org (Search: Quit Smoking) Centers for Disease Control and Prevention--www.cdc.gov/tobacco [place] Lung Association--www.lungusa.org documented in this encounter[facility]12-20-2024 Miscellaneous Notes* Telephone Encounter - Clover Wyman CMA - 06/28/2024 9:23 AM EST Called patient to remind them to bring their most current copy of their medication list with them to their appt. Patient verbalizes understanding. documented in this encounterUK Healthcare12-20-2024 Telephone encounter Note* Telephone Encounter - Clover Wyman CMA - 06/28/2024 9:23 AM EST Called patient to remind them to bring their most current copy of their medication list with them to their appt. Patient verbalizes understanding. [facility]11-22-2024 Telephone encounter Note* Telephone Encounter - Compa Tavares - 05/31/2024 4:00 PM EST For documentation purpose- Left a detail message for the patient to schedule an appointment with Dr. Monroy (40 mins slot). Referral from [employer]. Thank you [facility]11-22-2024 Miscellaneous Notes* Telephone Encounter - Compa Tavares - 05/31/2024 4:00 PM EST For documentation purpose- Left a detail message for the patient to schedule an appointment with Dr. Monroy (40 mins slot). Referral from [employer]. Thank you documented [facility]-2024 Evaluation note* Diagnosis Onset Date Resolution Status [...] 3:30pm Nausea acute July 30, 2024 3:30pm [facility] Work Phone: [phone]) 665-461908-27-2024 Evaluation note* Diagnosis Onset Date Resolution Status Admit Date Dyspepsia acute March 05, 2 024 2:54pm GERD (gastroesophageal reflu x disease) acute March 05 2:54pm Sliding hiatal hernia acute Feb us2023 2:54pm Diarrhea acute May 30, 2024 9:21am GERD (gastroesophageal reflu x disease) acute May 30, 2 024 9:21am [facility] Work Phone: 1(432) 445-910607-25-2024 Miscellaneous Notes* Telephone Encounter - Chelsey Biggs RN - 02/01/2024 1:35 PM EDT OV-06/19/2023 [facility]-02/10/2023 Letter sent via mail for reminder of labs and appointment documented in this encounterUK Healthcare07-25-2024 Telephone encounter Note* Telephone Encounter - Chelsey Biggs RN - 02/01/2024 1:35 PM EDT OV-06/19/2023 [facility]-02/10/2023 Letter sent via mail for reminder of labs and appointment [facility]06-25-2024 Evaluation note* Author Himanshu Borjas [facility] Authored January 02, 2024 2:23 pm Patient is positive for dysp epsia, patient notes dysphagia, epigastric pain, globus sensation and daily nausea Patient is also positive for abdominal pain [facility] Work Phone: 1(822) 322-792306-25-2024 Hospital Discharge instructionsAmbulatory Orders* Referral to Gastroenterology Time Frame: 01/02/24, Location: None Selected [facility] Work Phone: 1(906) 384-946802-01-2024 Hospital Discharge instructions Follow Up Care 08/10/2023 14:01:54 With:Oren BOB, JOCELYN Temple, URO Address: [address] [place] [address] [phone] When: Unknown [facility] 01-15-2024 Hospital Discharge instructions Patient Education 07/24/2023 [...] include: ?8 oz (237 mL) of milk, dumqnpb-jjarlpecujmv-zvhds milk, and calcium- fortifiedfruit juice. Calcium-fortified means [...] ?Spinach (cooked), rhubarb, beets, sweet potatoes, and Austrian chard. ?Peanuts. ?Potato chips, austrian fries, and baked potatoes with skin on. ?Nuts and nut products. ?Chocolate. If you regularly take a diuretic medicine, make sure to eat at least 1 or 2 servings of fruits or vegetables that are high in potassium each day. These include: ?Avocado. ?Banana. ?Simpson, prune, carrot, or tomato juice. ?Baked potato. [...] magnesium, fish oil, or vitamin B6. Take huce-qqv-aytbwak and prescription medicines only as told by [...] Casseroles. Pizza. Lasagna. Frozen meals. Potato chips. Estonian fries. The items listed above may not [...] provider. Document Revised: 10/06/2022 Document Reviewed: 10/06/2022 [employer] Patient Education 2022 [employer] Follow Up Care 07/13/2023 14:28:20 With:Elizabeth Lott Address: [address] [place] [address]- [phone] Business (1) [facility] Lamont Morales, [address] [address]- [phone] Business (1) When: Unknown Comments:Obtain renal US in 6 weeks at [facility]. Office to call with results. If no hydronephrosis, office will call to schedule follow up in 6 months with [facility] and renal US [facility]12-27-2023 Miscellaneous Notes* Telephone Encounter - Cristine Rodriguez RN - 07/05/2023 5:30 PM EST Ov 06/19/23 documented in this encounterUK Healthcare12-27-2023 Telephone encounter Note* Telephone Encounter - Cristine Rodriguez RN - 07/05/2023 5:30 PM EST Ov 06/19/23 [facility] [employer] [id number] Hospital Discharge instructions Patient Education 05/10/2023 10:27:19 [...] include: ?8 oz (237 mL) of milk, duojipu-tfphflcjfbhd-rdktn milk, and calcium- fortifiedfruit juice. Calcium-fortified means [...] ?Spinach (cooked), rhubarb, beets, sweet potatoes, and Austrian chard. ?Peanuts. ?Potato chips, austrian fries, and baked potatoes with skin on. ?Nuts and nut products. ?Chocolate. If you regularly take a diuretic medicine, make sure to eat at least 1 or 2 servings of fruits or vegetables that are high in potassium each day. These include: ?Avocado. ?Banana. ?Simpson, prune, carrot, or tomato juice. ?Baked potato. [...] magnesium, fish oil, or vitamin B6. Take zdde-mph-fyfgtqw and prescription medicines only as told by [...] Casseroles. Pizza. Lasagna. Frozen meals. Potato chips. Estonian fries. The items listed above may not [...] provider. Document Revised: 03/07/2022 Document Reviewed: 03/07/2022 [employer] Patient Education 2022 [employer] Follow Up Care 02/01/2023 14:06:36 With:Oren BOB, JOCELYN Temple, URO Address: When: Unknown Comments:Jaylan Vega ESWL/Stent [facility] 08-08-2023 Evaluation note* Encounter Date Diagnosis Assessment Notes Treatment Notes Treatment Clinical Notes Feb, Hiatal hernia (ICD-10 - K44.9) Pt is taking omeprazole. Pt states this medication is working for her. Pt states she still some times gets acid reflux, but overall, she is doing well. Pt RTO in 6 months Feb, Esophageal stricture (ICD-10 - K22.2) [employer]oss[employer] Other 05-09-2023 Evaluation note* Encounter Date Diagnosis Assessment Notes Treatment Notes Treatment Clinical Notes November, GERD (gastroesophageal reflux disease) (ICD-10 - K21.9) we will obtain a records release to get records from [facility] It is recommened that patient get EGD and she argees to have this done Patient has family history of esophageal cancer November, Family history of esophageal cancer (ICD-10 - Z80.0) Gloss48 Other Evaluation + Plan note No data available for this section [facility] evaluation + Plan note Future Appointments Appointment Date:01/30/2024 08:00:00 AM Scheduled Provider:Albania Chow Location:[facility] Appointment Type:URO Office Visit [facility] evalvxsqin note* Diagnosis Chest pain, unspecified type Dizziness Dizziness and giddiness Abnormal stress ECG Other nonspecific abnormal cardiovascular system function study documented in this encounter [facility]th Work Phone: evaltlorhb note* Diagnosis Onset Date Resolution Status Hiatal hernia acute [facility] Work Phone: evaluation note* Author Himanshu Borjas [facility] Authored January 02, 2024 2:23 pm Patient is positive for dysp epsia, patient notes dysphagia, epigastric pain, globus sensation and daily nausea Patient is also positive for abdominal pain [facility] Work Phone: evaluation note* Diagnosis Hematuria- Primary [...] Tobacco use disorder [facility] Diagnosis Hiatal hernia- Primary [...] Surgical History ablasion Surgical History tubal ligation Gloss48 Other History general Narrative - Reported* Type Description Date Medical History kidney stones Medical History hypertension Medical History gastritis Medical History Hiatal hernia Surgical History kidney stone Surgical History fx nose Surgical History ablasion Surgical History tubal ligation Hospitalization History Heart procedure Gloss48 Other Hospital Discharge instructions No data available for this section [facility] Hospital Discharge instructionsAmbulatory Orders* Referral to General Surgery Time Frame: 05/30/24, Location: [facility] Work Phone: InstructionsNot on filedocumented in this encounter [facility] on filedocumented in this encounter [facility] SystemInstructionsNot on filedocumented in this encounter [facility] SystemInstructionsNot on filedocumented in this encounter [facility] No data available for this section [facility] Reason for Referral Specialty Diagnoses / Procedures Referred By Contac t Referred To Contact Radiology Diagnoses Chest pain, unspecified type Dizziness Abnormal stress ECG R07.9 (ICD-10-CM) - Chest pain, unspecified type Procedures CTA CORON EJECT FRAC WALL MOTION CHG CT ANGIO HRT CORNRY ART/BYPASS GRFTS CONTRST 3D POST 89216 - CHG CT ANGIO HRT CORNRY ART/BYPASS GRFTS CONTRST 3D POST Chanel Harrell MD [address] [place] [address] Referral ID Status Reason Start Date Expiration Date V isits Requested Visits Authorized [id number] Authorized 06/21/2022 05/07/2023 1 1 Summary Purpose [...] HRT CORNRY ART/BYPASS GRFTS CONTRST 3D POST 82151 - CHG CT ANGIO HRT CORNRY ART/BYPASS GRFTS CONTRST 3D POST Chanel Harrell MD [address] [place] [address] Referral ID Status Reason Start Date Expiration Date V isits Requested Visits Authorized [id number] Authorized 06/21/2022 05/07/2023 1 1 Reason Comments Follow-up EST PT LS 06/19/23 H M. SCHED W/PT Reason Comments Hernia Reason Onset Date Comments Surgical Or Dental Clearance 08/07/2024 Reason Comments Med Refill Care Teams (unrecognized sec tion and content) Artist Model Relationship Specialty Start Date End Date Nadira Martínez APRN - [place] [address] PCP - General Certified Nurse Practitioner 06/17/22 Team Status: Active Member Role Status Dates Nadira Martínez APRN SUPERVISING DEPUTY-C Primary Care Provider Active Team Status: Inactive Member Role Status Dates Nadira Martínez APRN SUPERVISING DEPUTY-C Primary Care Provider Active Start: October 26, 2023 End: October 26, 2023 Himanshu Borjas APRN Attending Provider Active Start: October 26, 2023 End: October 26, 2023 Team Status: Inactive Member Role Status Dates Nadira Martínez APRN SUPERVISING DEPUTY-C Primary Care Provider Active Start: November 14, 2023 End: November 14, 2023 Himanshu Borjas APRN Attending Provider Active Start: November 14, 2023 End: November 14, 2023 Team Status: Inactive Member Role Status Dates Nadira Martínez APRN SUPERVISING DEPUTY-C Primary Care Provider Active Start: January 02, 2024 End: January 02, 2024 Himanshu Borjas APRN Attending Provider Active Start: January 02, 2024 End: January 02, 2024 Team Status: Inactive Member Role Status Dates Nadira Martínez APRN SUPERVISING DEPUTY-C Primary Care Provider Active Start: January 16, 2024 End: January 16, 2024 Himanshu Borjas APRN Attending Provider Active Start: January 16, 2024 End: January 16, 2024 Team Status: Inactive Member Role Status Dates Nadira Martínez APRN SUPERVISING DEPUTY-C Primary Care Provider Active Start: March 05, 2024 End: March 05, 2024 Himanshu Borjas APRN Attending Provider Active Start: March 05, 2024 End: March 05, 2024 Team Status: Inactive Member Role Status Dates Nadira Martínez APRN SUPERVISING DEPUTY-C Primary Care Provider Active Start: May 30, 2024 End: May 30, 2024 Himanshu Borjas APRN Attending Provider Active Start: May 30, 2024 End: May 30, 2024 Artist Model Relationship Specialty Start Date End Date Rafael Garrison MD [address] [place], [place] [address]j[place] [phone] PCP - General Internal Medicine 10/03/14 Himanshu Borjas CNP [address] [place] [id number] Family Medicine 01/10/24 Artist Model Relationship Specialty Start Date End Date Nadira Martínez APRN-CAREER COORDINATOR [address] [place], [place] [id number] PCP - General Family Medicine 11/23/20 Artist Model Relationship Specialty Start Date End Date [facility] [address] [place] PCP - General Family Medicine 07/01/24 [...] July 30, 2024 End: July 30, 2024 Artist Model Relationship Specialty Start Date End Date Rafael Garrison [facility] [address] [facility] [place] [phone] PCP - General Internal Medicine 10/03/14 Himanshu Borjas CNP [address] [place] [id number] Family Medicine 01/10/24 Artist Model Relationship Specialty Start Date End Date [facility] [address] [place] PCP - General Family Medicine 07/01/24 Artist Model Relationship Specialty Start Date End Date Nadira Martínez APRN-CAREER COORDINATOR [address] [place], [place] [phone] PCP - General Family Medicine 11/23/20 Artist Model Relationship Specialty Start Date End Date Nadira Martínez APRN-CAREER COORDINATOR [address] [place] [address] PCP - General Family Medicine 11/23/20 Team Status: Inactive Member Role Status Dates NON STAFF Primary Care Provider Active Start: September 10, 2024 End: September 10, 2024 Himanshu Borjas APRN Attending Provider Active Start: September 10, 2024 End: September 10, 2024 INFORMATION SOURCE (unrecogn ized section and content) DATE CREATED AUTHOR 06/30/2022 [facility] DATE CREATED AUTHOR AUTHOR'S ORGANIZ ATION 10/06/2022 [facility] DATE CREATED AUTHOR AUTHOR'S ORGANIZ ATION 01/23/2023 [facility] DATE CREATED AUTHOR AUTHOR'S ORGANIZ ATION 06/03/2024 [facility] DATE CREATED AUTHOR AUTHOR'S ORGANIZ ATION 07/03/2024 [facility] DATE CREATED AUTHOR AUTHOR'S ORGANIZ ATION 08/07/2024 [facility] DATE CREATED AUTHOR AUTHOR'S ORGANIZ ATION 08/29/2024 [facility] Goals (unrecognized section and content) Goals may be documented in a n alternate section Source Comments (unrecognize d section and content) In the event this informatio n is protected by the Federal Confidentiality of Alcohol and Drug Abuse Patient Records regulations: The Federal rules restrict any use of the information to criminally investigate or prosecute any alcohol or drug abuse patient.[facility] RehabilitationIn the event this information is protected by the Federal Confidentiality of Alcohol and Drug Abuse Patient Records regulations: The Federal rules restrict any use of the information to criminally investigate or prosecute any alcohol or drug abuse patient.[facility] FOR RECORDS PERTAINING TO PATIENTS WHO ARE [...] BE BASED ON THE PRIMARY CLINICAL RECORDS. [facility]. provides no warranty or guarantee of the accuracy or completeness of information in this document.
--- NOTE | 2024-09-20 15:24 | P.GSHP_ITS ---
History of Present Illness History of Present Illness Chief complaint: Right kidney stone Narrative: Patient presents for presurgical testing. The patient states upon follow-up with urology her KUB demonstrated a right sided kidney stone. The patient states she was treated here in July 2023 for a left-sided kidney stone. She states she does get twinges of pain in her right flank but otherwise denies hematuria, dysuria, fever, nausea, vomiting, or any other complaints. Review of Systems ROS Narrative REVIEW OF SYSTEMS: Negative except as stated in HPI, ten or more systems reviewed. Constitutional: No fever, chills, weakness ENT: No sore throat or epistaxis Cardiovascular: No edema, chest pain, palpitations, or activity intolerance Respiratory: No shortness of breath, cough, or wheezing Musculoskeletal: No joint pain or swelling Gastrointestinal: No abdominal pain, constipation, diarrhea, or vomiting Genitourinary: No dysuria or hematuria Neurological: No numbness, tingling, or weakness Psychiatric: No mood changes PFSH [facility] Medical History (Updated 09/20/24 @ 15:04 by Maria Elena Arciniega NP) Back pain ?M54.9 - Dorsalgia, unspecified (ICD-10) Osteoporosis ?M81.0 - Age-related osteoporosis without current pathological fracture (ICD- 10) Arthritis ?M19.90 - Unspecified osteoarthritis, unspecified site (ICD-10) Depression ?F32.A - Depression, unspecified (ICD-10) Unintentional weight loss (2024) ?R63.4 - Abnormal weight loss (ICD-10) Diverticulitis ?K57.92 - Diverticulitis of intestine, part unspecified, without perforation or abscess without bleeding (ICD-10) Anemia ?D64.9 - Anemia, unspecified (ICD-10) Migraine ?G43.909 - Migraine, unspecified, not intractable, without status migrainosus (ICD-10) Kidney stones ?N20.0 - Calculus of kidney (ICD-10) Postoperative nausea and vomiting ?R11.2 - Nausea with vomiting, unspecified (ICD-10) ?Z98.890 - Other specified postprocedural states (ICD-10) Anxiety ?F41.9 - Anxiety disorder, unspecified (ICD-10) Acid reflux ?K21.9 - Gastro-esophageal reflux disease without esophagitis (ICD-10) Hyperlipidemia ?E78.5 - Hyperlipidemia, unspecified (ICD-10) Hypertension ?I10 - Essential (primary) hypertension (ICD-10) Coronary artery disease ?I25.10 - Atherosclerotic heart disease of [place] coronary artery without angina pectoris (ICD-10) Hx of renal calculi ?Z87.442 - Personal history of urinary calculi (ICD-10) Surgical History (Updated 09/20/24 @ 14:47 by Maria Elena Arciniega NP) S/P cystoscopy with ureteral stent placement (07/12/23) ?Z96.0 - Presence of urogenital implants (ICD-10) H/O cystoscopy (05/24/23) ?Z98.890 - Other specified postprocedural states (ICD-10) History of ovarian cystectomy ?Z98.890 - Other specified postprocedural states (ICD-10) ?Z87.42 - Personal history of other diseases of the female genital tract (ICD-10) History of endometrial ablation ?Z98.890 - Other specified postprocedural states (ICD-10) History of tubal ligation ?Z98.51 - Tubal ligation status (ICD-10) History of esophagogastroduodenoscopy (EGD) ?Z98.890 - Other specified postprocedural states (ICD-10) History of colonoscopy ?Z98.890 - Other specified postprocedural states (ICD-10) History of cystoscopy ?Z98.890 - Other specified postprocedural states (ICD-10) History of lithotripsy ?Z98.890 - Other specified postprocedural states (ICD-10) Hx of heart artery stent ?Z95.5 - Presence of coronary angioplasty implant and graft (ICD-10) Hx of hysterectomy ?Z90.710 - Acquired absence of both cervix and uterus (ICD-10) Family History Other Family history of breast cancer Family history of hypertension Family history of myocardial infarction Social History Within the past year, how often did you have a drink containing alcohol: monthly or less Smoking status: Never smoker Non-prescribed substance use: cannabis (any form) Non-prescribed substance use details: LAST WEEK Previous occupational history: SCHOOL [employer] Highest level of school completed/degree received: high school graduate Meds Home Medications and Allergies Home Medications ?Medication ?Instructions ?Recorded ?Confirmed ?Type citalopram 20 mg tablet 20 mg PO DAILY 01/18/23 09/20/24 History isosorbide mononitrate 30 mg 30 mg PO DAILY 01/18/23 09/20/24 History tablet,extended release 24 hr lisinopril 40 mg tablet 40 mg PO QPM 01/18/23 09/20/24 History omeprazole 40 mg capsule,delayed 40 mg PO DAILY 01/18/23 09/20/24 History release rosuvastatin 20 mg tablet 20 mg PO DAILY 01/18/23 09/20/24 History aspirin 81 mg tablet,delayed 81 mg PO DAILY 02/02/23 09/20/24 History release (Adult Low Dose Aspirin) clopidogrel 75 mg tablet 75 mg PO DAILY 02/02/23 09/20/24 History alendronate 70 mg tablet 70 mg PO .weekly 03/09/24 09/20/24 History cholecalciferol (vitamin D3) 25 1,000 unit PO DAILY 03/09/24 09/20/24 History mcg (1,000 unit) capsule famotidine 40 mg tablet 40 mg PO DAILY 03/09/24 09/20/24 History tramadol 50 mg tablet 25 mg (1/2 x 50 mg) PO Q6H PRN 09/19/24 09/20/24 Rx pain #10 tabs estradiol 0.01% (0.1 mg/gram) 0.25 appful vaginal QWEEK 09/20/24 09/20/24 History vaginal cream (Estrace) nitroglycerin 0.4 mg sublingual 0.4 mg buccal Q5M PRN chest pain 09/20/24 09/20/24 History tablet Allergies Allergy/AdvReac Type Severity Reaction Status Date / Time No Known Drug Allergies Allergy Verified 09/20/24 14:53 Exam Narrative Exam Narrative: Constitutional: Awake, alert, comfortable, well-appearing, nontoxic, interactive, vital signs as charted Head: Normocephalic, atraumatic Neck: Supple, normal appearance, normal range of motion, no meningeal signs, no lymphadenopathy Respiratory: No respiratory distress, breath sounds clear Cardiovascular: Regular rate and rhythm, strong and regular heart tones Abdomen: Nontender, normal bowel sounds, soft, no CVA tenderness Musculoskeletal: Normal gait, no swelling or edema Skin: No rashes or induration, no lesions, only visible skin inspected Neuro: No neurological deficits, normal sensation Psychiatric: Oriented ?3, normal affect Assessment and Plan Assessment and Plan (1) Kidney stones: Plan Right ESWL scheduled with Dr. Lott October 02, 2024.
[2024-09-20 15:25] LABS: Basophils Absolute Auto 0.1 10^3/uL (0.0-0.1); Basophils Percent Auto 1.3 % (0.2-2.0); Eosinophils Absolute Auto 0.3 10^3/uL (0.0-0.7); Eosinophils Percent Auto 3.5 % (0.9-7.0); Hematocrit 41.2 % (36.0-48.0); Hemoglobin 13.4 g/dL (12.0-16.0); Immature Granulocytes Abs Auto 0.01 10^3/uL (0.00-0.03); Immature Granulocytes Pct Auto 0.1 % (0.0-0.5); Lymphocytes Absolute Auto 2.6 10^3/uL (1.2-3.8); Lymphocytes Percent Auto 33.8 % (20.5-60.0); Mean Corpuscular HGB Conc 32.5 g/dL (29.9-35.2); Mean Corpuscular Hemoglobin 29.9 pg (26.7-34.0); Mean Platelet Volume 8.7 fL (9.5-13.5); Monocytes Absolute Auto 0.5 10^3/uL (0.3-0.8); Monocytes Percent Auto 6.9 % (1.7-12.0); Neutrophils Absolute Auto 4.3 10^3/uL (1.4-6.5); Neutrophils Percent Auto 54.4 % (43.0-75.0); Platelet Count 296 10^3/uL (150-450); Red Blood Count 4.48 10^6/uL (4.20-5.40); Red Cell Distribution Width 12.2 % (11.0-15.0); White Blood Count 7.8 10^3/uL (4.0-11.0)
[2024-09-20 15:31] LABS: Bilirubin Urine NEGATIVE (NEGATIVE); Blood Urine SMALL (NEGATIVE); Clarity Urine CLEAR (CLEAR); Color Urine YELLOW (YELLOW); Glucose Urine UA NEGATIVE (NEGATIVE); Ketones Urine NEGATIVE (NEGATIVE); Leukocyte Esterase Urine NEGATIVE (NEGATIVE); Nitrite Urine NEGATIVE (NEGATIVE); Protein Urine NEGATIVE (NEG/TRACE); Urine Microscopic Indicated YES; Urobilinogen Urine 0.2 EU/dL (0.2-1.0)
[2024-09-20 15:34] LABS: Anion Gap 8.6; BUN Creatinine Ratio 11.9; Calcium 9.3 mg/dL (8.5-10.1); Carbon Dioxide 32.1 mmol/L (21.0-32.0); Chloride 103 mmol/L (98-107); Estimated GFR (African America >60 (>=60 mL/min/1.73m^2); Estimated GFR (Non-African Ame >60 (>=60 mL/min/1.73m^2); Glucose 94 mg/dL (74-106); Potassium 4.7 mmol/L (3.5-5.1); Sodium 139 mmol/L (136-145)
[2024-09-20 15:41] LABS: Bacteria Urine MODERATE #/HPF (NONE SEEN); RBC Urine 0-2 #/HPF (0-2); WBC Urine 0-2 #/HPF (NONE SEEN)
[2024-09-20 15:42] LABS: Cast Seen? NONE SEEN #/LPF (NONE SEEN); Crystals Seen? None Seen #/HPF (None Seen); Mucus Urine NONE SEEN (NONE SEEN); Squamous Epithelial Cell Urine FEW #/LPF (NONE/RARE); Urine Culture Indicated YES-FRMC
[2024-09-20 15:49] LABS: INR 0.99; Partial Thromboplastin Time 26.5 sec (22.3-36.2); Prothrombin Time 10.5 sec (9.0-11.6)
== END 2024-09-20 14:43 | disposition home or self-care (01) ==
LOC: PST 14:43
PROVIDERS: Visit Provider Urology
DX: Z01.810 Encounter for preprocedural cardiovascular examination (principal); Z01.812 Encounter for preprocedural laboratory examination; Z01.818 Encounter for other preprocedural examination; N20.0 Calculus of kidney
CPT/HCPCS: 71046; 80048; 81001; 85025; 85610; 85730; 87086; G0463

== ENCOUNTER 2024-09-27 08:59 | Outpatient (OUT) | payer MEDICARE, SELFPAY ==
--- NOTE | 2024-09-27 09:00 | ECG_ITS ---
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 Measurements Intervals [place] Rate: 60 P: 72 [place]: 163 QRS: 61 QRSD: 78 T: 58 QT: 402 QTc: 404 Interpretive Statements SINUS RHYTHM Normal ECG Compared to ECG 03/09/2024 00:44:08 No significant changes Electronically Signed On 09-27-2024 17:38:39 EDT by KAMILAH LANDRY M.D.
--- OUTSIDE RECORDS SUMMARY | 2024-09-27 09:18 | XMS_ITS | CCD ---
Demographics Address [address] [place] [address] Mobile Phone Preferred Language en Marital Status Single Samaritan Affiliation Unknown Race White Ethnic Group Not or Lati no Author Organization [facility] Care Team Providers Care Communications Programmer Name Role Phone Nadira Modi APRN, CNP Primary Care Provider CHANEL HARRELL Referring Unavailable ANGLIM, NADIRA Primary Care Unavailable [facility] Primary Care Unava ilable MIKHAIL GARNT Consulting Unavailable JUANITA, MIKHAIL Admitting Unavailable GABRIELLA GRANTYL Attending Unavailable ANGNADIRA URRUTIA Admitting Unavailable ANGJENIFFER URRUTIAA Attending Unavailable [facility] Care Unava ilable MARILYNN, NADIRA Consulting Unavailable Himanshu Borjas Unavailable LOS LEE Admitting Unavailable LOS LEE Attending Unavailable LOS LEE Referring Unavailable ANGGHADA, NADIRA Primary Care Unavailable NADIRA MARTÍNEZ Primary Care Physician RISA Martínez Primary Care Provider [phone] RISA Borjas Attending Provider RISA Martínez Primary Care Provider RISA Borjas Attending Provider Rafael Garrison MD Primary Care Provider [phone] Himanshu Borjas CNP Unavailable Nadira Perdue Primary Care Provider Services, [facility] Primary Care Provider NADIRA MARTÍNEZ Referring Unavailable MARILYNN, NADIRA A Primary Care Unavailable JOEY BOLDEN Attending Unavailable MARILYNN NADIRA A Referring Unavailable [facility] Primary Care Unava ilable NON STAFF Primary Care Provider Unavailwendy e Himanshu Borjas APRN Attending Provider FERNANDO CASTELLON Referring Unavailable MICAELA MONROY Attending Unavailable RAFAEL GARRISON Primary Care Unavailable JASMIN BHANDARI Attending Unavail able JASMIN BHANDARI Attending Unavail able Elizabeth Lott Attending Unavailable Elizabeth Lott Attending Unavailable Elizabeth Lott Attending Unavailable Albania Toney Attending Unavailable Elizabeth Lott MD Attending Provider Himanshu Borjas Admitting Unavailable Himanshu Borjas Attending Unavailable Anglim Nadira Primary Care Unavailable Himanshu Borjas Admitting Unavailable Himanshu Borjas Attending Unavailable Anglim, Nadira Primary Care Unavailable Himanshu Borjas Attending Unavailable NON STAFF Primary Care Unavailable Himanshu Borjas Admitting Unavailable Elizabeth Lott Admitting Unavailable Elizabeth Lott Attending Unavailable Allergies Allergy Classification Reported Allergen(s) Allergy Type Date of Onset Reaction(s) Facility (1 source) No Known Medication Allergies; Translations: [No Known Medication Allergies] Propensity to adverse reactions (disorder) [facility] Repository Medications Current Medications Medication Drug [...] Tablet Active 20 MG PO Daily December 20, 2022 12:00am clopidogrel 75 mg oral tablet (20 sources) [...] Status: Ordered famotidine 40 mg oral tablet (18 sources) Histamine-2 Receptor Antagonist Start: 01-02-2024 End: 09-10-2024 take 1 tablet by mouth twice daily Famotidine 40 mg tablet Active 40 MG PO Twice daily 60 September 10, 2024 4:10pm Start: 10-26-2023 End: 01-02-2024 take 1 tablet by mouth once daily at bedtime Famotidine 40 mg tablet Discontinued 40 MG PO Daily at bedtime 30 October 26, 2023 12:00am January 02, 2024 [...] Tablet Active 20 MG PO Daily December 20, 2022 12:00am loperamide hydrochloride 2 mg oral capsule (3 sources) Opioid Agonist Start: 07-30-2024 take 1 capsule by mouth once as needed Loperamide (Imodium A-D) 2 mg capsule Active 2 MG PO .prn as needed July 30, 2024 1:00am 24 hr metoprolol succinate 25 mg extended release oral tablet (5 sources) beta-Adrenergic Shoaib Start: 02-10-2023 take 1 tablet by mouth once daily metoprolol succinate XL (TOPROL XL) 25 mg 24 hr tablet Indications: 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 (CMS-HCC) , [...] PO Twice daily 60 September 10, 2024 4:10pm Start: 12-20-2022 End: 12-20-2022 take 1 capsule by mouth once daily Omeprazole 20 mg Capsule,Delayed Release(Dr/Ec) Discontinued 20 MG PO Daily December 20, 2022 12:00am December 20, 2022 1:54pm Start: 08-24-2021 End: 01-02-2024 take 1 capsule by mouth once daily Omeprazole 40 mg capsule,delayed release(DR/EC) Discontinued 40 MG PO Daily December 20, 2022 12:00am January 02, 2024 2:15pm take 1 capsule by mo [facility] twice daily Omeprazole 20 MG 1 capsule 30 minutes before morning meal Orally BID Active rosuvastatin calcium 20 mg oral tablet (20 sources) HMG-CoA Reductase Inhibitor Start: 10-26-2023 Rosuvastatin Active MG PO October 26, 2023 12:00am FreeTextSig: Oral; Note: Source Status: Taking; Qty: 90 Tablet; Provider: Suad Downs ( ) Start: 02-10-2023 Rosuvastatin 2 0 mg tablet Active MG PO October 26, 2023 12:00am FreeTextSig: Oral; Note: Source Status: Taking; Qty: 90 Tablet; Provider: Suad Downs ( ) Completed/Discontinued Medications Medication Drug Class(es) Dates Sig (Normalized) Sig (Original) ciprofloxacin 500 mg oral tablet (4 sources) Quinolone Antimicrobial Start: 05-30-2024 End: 07-30-2024 Ciprofloxacin Hcl 500 mg tablet Discontinued 500 MG PO May 30, 2024 1:00am July 30, 2024 4:33pm oxybutynin chloride 5 mg oral tablet (4 [...] Classification Problem Date Documented Da te Episodic/Chronic Allergic reactions (3 sources) Allergy to drug 07-24-2024 Episodic Calculus of urinary tract (20 sources) Personal history of urinary calculi; Translations: [History of calculus of kidney] Onset: Episodic Coronary atherosclerosis and other heart disease (12 sources) Coronary arteriosclerosis; Translations: [Atherosclerotic heart disease of deering coronary artery with other forms of angina [...] [DEPRESSION UNSPECIFIED] Onset: 3 Nausea and vomiting (14 sources) Nausea; Translations: [Nausea] 01-02-2024 Episodic Open wounds of extremities (4 sources) Laceration without foreign body of right index finger without damage to nail, initial encounter; Translations: [LAC W/O FB RT IF W/O DMG NAIL INIT] Onset: 3 Episodic Other aftercare (1 source) Other residential (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 therapy; Translations: [[facility] CURRENT DRUG THERAPY] Onset: 3 Episodic Other aftercare (4 sources) Long-term current use of anticoagulant; Translations: [exterminator helper (current) use of anticoagulants] Onset: 5 Episodic Other aftercare (1 source) Long-term current use of drug therapy; Translations: [exterminator helper (current) use of antithrombotics/antipl atelets] Onset: 5 Episodic Other gastrointestinal disorders (4 sources) Irritable bowel syndrome with diarrhea; Translations: [Irritable bowel syndrome with diarrhea] 05-30-2024 Chronic Other gastrointestinal disorders (3 sources) Irritable bowel syndrome with diarrhea; Translations: [Irritable bowel syndrome] 07-30-2024 Chronic Other gastrointestinal disorders (4 sources) Diarrhea; Translations: [Diarrhea, unspecified] 05-30-2024 Episodic Other lower respiratory disease (9 sources) Cough; Translations: [Cough] 10-26-2023 Episodic Other nutritional; endocrine; and metabolic disorders (5 sources) Disorder of mineral metabolism; 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, unspecified] Onset: 7 09-26-2022 Chronic Prolapse of female genital organs (10 sources) Cystocele; Translations: [Cystocele, unspecified] Onset: 3 Chronic Residual codes; unclassified (1 source) Family history of malignant neoplasm of digestive organs Episodic Residual codes; unclassified (9 sources) History of cardiac catheterization; Translations: [Other specified postprocedural states] 10-26-2023 Episodic Residual codes; unclassified (9 sources) Past history of procedure; Translations: [Other specified postprocedural states] 10-26-2023 Episodic Residual codes; unclassified (3 sources) Tobacco user 07-24-2024 Episodic Substance-related disorders (5 sources) Nicotine dependence, cigarettes, uncomplicated; Translations: [Smoker] Onset: 3 07-01-2024 Chronic Unclassified (2 sources) cath procedure; Translations: [cath procedure] Onset: 3 Unclassified (1 source) Long-term current use of drug therapy 08-27-2024 Unclassified (1 source) Cough, unspecified; Translations: [Cough, unspecified] Onset: Urinary tract infections (7 sources) Urinary tract infectious disease 05-10-2023 Episodic Past or Other Problems Problem Classification Problem Date Documented Da te Episodic/Chronic Abdominal hernia (20 sources) Diaphragmatic hernia without obstruction or gangrene; Translations: [Hiatal hernia] Onset: 11-14-2023 Episodic Abdominal pain (16 sources) Abdominal pain; Translations: [Unspecified abdominal pain] Onset: 01-16-2024 01-02-2024 Episodic Conditions associated with dizziness or vertigo (7 [...] (1 source) Patient encounter status; Translations: [Other residential (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 therapy] 02-01-2024 Episodic Other diseases of kidney and ureters (5 sources) Cyst of kidney; Translations: [Cyst of kidney, acquired] Onset: 07-29-2016 02-14-2022 Episodic Other gastrointestinal disorders (4 sources) Diarrhea, unspecified; Translations: [Diarrhea] Onset: 05-31-2024 05-30-2024 Episodic Other screening for suspected conditions (not mental disorders or infectious disease) (3 sources) Echocardiogram abnormal; Translations: [Abnormal result of other cardiovascular function study] Onset: 06-21-2022 Episodic Results Test Name Value Interpretation Reference Range Facility Urine Cultureon 09-20-2024 Bacteria identified Cx Nom (U) 20,000 colonies/ml mixed bacterial skin contaminants 2 Days PERFORMED BY: [facility] [place] [place] [address] PATHOLOGIST FLYING II INSTRUCTOR NAKIA RUBIN M.D. Normal [facility] Comment on above: Performed By: #### C UU #### [facility] [address] [id number] [facility] Ambulatory Visit Summaryon 0 08-27-2024 Ambulatory Visit Summary Ambulatory Visit Summary SLY COY :1955 Visit Date:08/27/2024 Ambulatory Visit Instructions Your Diagnosis Female bladder prolapse Kidney stones Vaginal atrophy Antiplatelet or antithrombotic long-term use Smoker Your Care Team Attending Physician - JASMIN BHANDARI MD Primary Care Physician - NADIRA MARTÍNEZ [...] or breast (more content not included)... Normal [facility] Urology Office/Clinic Noteon 08-27-2024 Urology Office/Clinic Note Urology Office/Clinic Note Chief Complaint follow up HPI Staff ELAINE pt. 68 yr old female here to [...] with voice recognition artificial intelligence software, specifically Domains Income, CLARED and or DeRev. Substitutions may have occurred due to the inherent limitations of voice recognition and artificial intelligence software. 1. Female bladder prolapse (N81.10: Cystocele, unspecified) S/p vaginal hysterectomy 2018. Still has ovaries. S/p bladder sling with mesh. Unsure of date. 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 Antiplatelet or antithrombotic long-term use (Z79.02: [facility] (current) use of antithrombotics/anti platelets) Plavix. Has a heart stent. Elevated risk of periop complications. 5. Smoker (F17.200: Nicotine dependence, unspecified, uncomplicated) Pt states she has been cutting back. Pt states I'm trying . Cessation encouraged. Patient presents with a stage III anterior prolapse. I discussed surgical options including transvaginal repair with deering tissue, abdominal sacrocolpopexy and patient opts for the latter. She was counseled on the risk, benefits, alternatives and she would like to proceed. I discussed with her in detail about the surgery, side effect profile and patient communicated full understanding. Will schedule the surgery for October. With 1 night hospital stay. Follow-up With When Contact Information JASMIN BHANDARI MD, URL Additional Instructions: Schedule robotic-assisted sacrocolpopexy in October Patient Education Steps to Quit Smoking How to Use a Vaginal Pessary ISary, personally scribed for Dr. Bess on 08/27/2024 14:17:35. . Documentation recorded by the Sary anaya accurat (more content not included)... Normal [facility] Comment on above: Result Comment: Elec tronically Signed By: JASMIN BHANDARI MD\.br\Date and Time Signed: 08/27/24 14:39 EST\.br\Electronically Co-Signed By: Sary Navarro\.br\Date and Time Co-Signed: 08/27/24 14:18 EST Patient Letter FTon 2024 [place] [facility] [place] [facility] August 13, 2024 SLY COY [address] [place] [address] : 1955 Dear _ , You missed [...] select option 3. Sincerely, [facility] [address] [place] [address] CNOVon 08-05-2024 [facility] Office Visit ([facility]) SLY COY ([id number]) 1955 F Date Time Provider Department 08/05/24 11:00 AM MICAELA MONROY [facility] During your visit today, we recorded the [...] with more than 50% of the total mmln-ey-ohlb time of the visit in counseling / coordination of care. Referring Provider: FERNANDO CASTELLON [[id number]] Allergies As of Date: 08/05/2024 (No Known Allergies) Date Reviewed: 08/05/2024 Reviewed by: Aura Evans, FAUSTINO - Fully Assessed Reason for Visit: Hernia [...] Status:Closed by MICAELA MONROY on 08/05/24 Normal [facility] Urology Office/Clinic Noteon 07-24-2024 Urology Office/Clinic Note [...] 08/08/[address] AP w con 01/16/24 [facility]. KUB/RAFAEL 04/30/24 [facility]. Dysuria: _at times Incomplete [...] signs involv (more content not included)... Normal [facility] Comment on above: Result Comment: Elec tronically Signed By: Elizabeth Lott MD\.br\Date and Time Signed: 07/24/24 10:06 EST\.br\Electronically Co-Signed By: Shahana Mazariegos\.br\Date and Time Co-Signed: 07/24/24 09:51 EST POCT EKGOrdered By: Clover Wyman on 07-01-2024 [facility] 05-31-2024 [facility] Telephone ([facility]) SLY COY ([id number]) 1955 F Date Time Provider Department 05/31/24 MICAELA MONROY [facility] During your visit today, we recorded the following information about you: Compa Tavares 05/31/2024 4:04 PM Addendum For documentation purpose- Left a detail message for the patient to schedule an appointment with Dr. Monroy (40 mins slot). Referral from [facility]. Thank you Allergies As of Date: 05/31/2024 [...] Status:Closed by COMPA TAVARES on 05/31/24 Normal [facility] Campy coli+jejuni BD MaxOrde red By: Himanshu Borjas on 05-31-2024 C. coli+jejuni tuf gene DOMONIQUE+probe Ql (Stl) Campy coli+jejuni BD Max Negative Comment on above: Campylobacter test i ncludes C. jejuni and C. coli. Clostridioides difficile tox in B tcdB gene [Presence] in Stool by DOMONIQUE with probe deteOrdered By: Himanshu Borjas on 05-31-2024 C. difficile toxin B tcdB gene DOMONIQUE+probe Ql (Stl) Clostridioides difficile toxin B tcdB gene [Presence] in Stool by DOMONIQUE with probe dete Negative Comment on above: Testing performed by RT-PCR Clostridium Difficileon 05-11 Clostridium Difficile Negative Normal Negative [facility] Comment on above: Result Comment: Test ing performed by RT-PCR PERFORMED BY: [place] [address] PATHOLOGIST FLYING II INSTRUCTOR NAKIA RUBIN M.D. Performed By: #### G IARDIA, STCYRPTOAG #### [facility] , #### ENT BACT PANEL, OVP, CDT #### [facility] [address] [place] [address] Cryptosporidium Antigen Stoo danny 05-31-2024 Cryptosporidium Antigen Stool Negative Normal Negative [facility] Comment on above: Performed By: #### G IARDIA, STCYRPTOAG #### [facility] , #### ENT BACT PANEL, OVP, CDT #### [facility] [address] [place] [address] Cryptosporidium parv+homin B D MaxOrdered By: Himanshu Borjas on 05-31-2024 C. parvum+hominis DNA DOMONIQUE+probe Ql (Stl) Cryptosporidium parv+homin BD Max Negative Comment on above: Cryptosporidium test includes C. hominis and C. parvum. Cryptosporidium sp Ag [Prese nce] in Stool by ImmunoassayOrdered By: Himanshu Borjas on 05-31-2024 Cryptosporidium sp Ag IA Ql (Stl) Cryptosporidium sp Ag [Presence] in Stool by Immunoassay Negative Entamoeba histolytica BD Max Ordered By: Himanshu Borjas on 05-31-2024 E. histolytica DNA DOMONIQUE+probe Ql (Stl) Entamoeba histolytica BD Max Negative Comment on above: Testing performed by RT-PCR Giardia Lamblia Ag EIA Stool on 05-31-2024 Giardia Lamblia Ag EIA Stool Negative Normal Negative [facility] Comment on above: Result Comment: Perf ormed at: - [facility] [address] [id number] Route Sales Delivery Drivers Supervisor: Nehemias Pollard PhD, Phone: [phone] PERFORMED BY: [place] [address] PATHOLOGIST FLYING II INSTRUCTOR NAKIA RUBIN M.D. Performed By: #### G IAAWA STCYRPTOAG #### [facility] , #### ENT BACT PANEL, OVP, CDT #### [address] Giardia sidhu BD MaxOrdered By : Himanshu Borjas on 05-31-2024 G. lamblia DNA DOMONIQUE+probe Ql (Stl) Giardia sidhu BD Max Negative Giardia lamblia Ag [Presence ] in Stool by ImmunoassayOrdered By: Himanshu Borjas on 05-31-2024 G. lamblia Ag IA Ql (Stl) Giardia lamblia Ag [Presence] in Stool by Immunoassay Negative Comment on above: Performed at: [place] [id number] Director: Nehemias Pollard PhD, Phone: [phone] Ova and Parasite Panelon Cryptosporidium (C.hominis+par Negative Normal Negative [facility] Comment on above: Result Comment: Cryp tosporidium test includes C. hominis and C. parvum. Performed By: #### G IABAUDILIOIA, STCYRPTOAG #### [facility] , #### ENT BACT PANEL, OVP, CDT #### [address] Entamoeba histolytica Negative Normal Negative [facility] Comment on above: Result Comment: Test ing performed by RT-PCR PERFORMED BY: [place] [address] PATHOLOGIST FLYING II INSTRUCTOR NAKIA RUBIN M.D. Performed By: #### G IARDIA, STCYRPTOAG #### [facility] , #### ENT BACT PANEL, OVP, CDT #### [address] [address] [place] Giardia lamblia Negative Normal Negative [facility] Comment on above: Performed By: #### G BEHZAD FLOODRPTOAG #### [facility] , #### ENT BACT PANEL, OVP, CDT #### [facility] [address] [place] [address] Salmonellosis BD MaxOrdered By: Himanshu Borjas on 05-31-2024 Salmonella sp spaO gene DOMONIQUE+probe Ql (Stl) Salmonella sp spaO gene [Presence] in Stool by DOMONIQUE with probe detection Negative Comment on above: Testing performed by RT-PCR Shigella Tox 1+2 BD MaxOrder ed By: Himanshu Borjas on 05-31-2024 E. coli stx1+stx2 genes DOMONIQUE+probe Ql (Stl) Escherichia coli Stx1 and Stx2 toxin stx1+stx2 genes [Presence] in Stool by DOMONIQUE with Negative Shigellosis BD MaxOrdered By : Himanshu Borjas on 05-31-2024 Shigella species+EIEC invasion plasmid antigen H ipaH gene DOMONIQUE+probe Ql (Stl) Shigella species+EIEC invasion plasmid antigen H ipaH gene [Presence] in Stool by DOMONIQUE Negative Comment on above: Shigella sp. test in cludes Shigella species and Enteroinvasive E. coli (EIEC). Stool Bacterial Panelon 05-11 Campylobacter Negative Normal Negative [facility] Comment on above: Result Comment: Camp ylobacter test includes C. jejuni and C. coli. Performed By: #### G BEHZAD FLOODRPTOAG #### [facility] , #### ENT BACT PANEL, OVP, CDT #### [address] Salmonella Species Negative Normal Negative [facility] Comment on above: Result Comment: Test ing performed by RT-PCR PERFORMED BY: [place] [address] PATHOLOGIST FLYING II INSTRUCTOR NAKIA RUBIN M.D. Performed By: #### G IARDIA, STCYRPTOAG #### [facility] , #### ENT BACT PANEL, OVP, CDT #### [address] Shiga Toxin (E coli O157+oth) Negative Normal Negative [facility] Comment on above: Performed By: #### G IARDIA, STCYRPTOAG #### [facility] , #### ENT BACT PANEL, OVP, CDT #### [address] Shigella Species Negative Normal Negative [facility] Comment on above: Result Comment: Shig rylie sp. test includes Shigella species and Enteroinvasive E. coli (EIEC). Performed By: #### G IARDIA, STCYRPTOAG #### [facility] , #### ENT BACT PANEL, OVP, CDT #### [address] abdomen pelvis w conon CT abdomen pelvis w con [facility] [place] [address] [place] [address] CT Scan Report Signed Patient: Sly Coy MR#: [id number] : 1955 Acct:[id number] Age/Sex: 68 / F ADM Date: 01/16/24 Loc: CT Room: Type: [facility] Attending Dr: Himanshu Borjas APRN Copies to: [...] process. Impression dictated by: Dallas Lowe Jr., DGiselleOGiselle01/16/2024 5:44 PM Dictation Location: [place] [address] Transcribed By: [facility] 01/16/241743 Dictated By: Dallas Lowe Jr, DO 01/16/241741 Signed By: 01/16/241743 Normal [facility] Creatinineon 01-16-2024 GFR/1.73 sq M.predicted MDRD (S/P/Bld) [Vol rate/Area] mL/min/{1.73_m2} Normal [facility] Comment on above: Result Comment: PERF ORMED BY: [place] [address] PATHOLOGIST FLYING II INSTRUCTOR TONY WONG M.D. Performed By: #### C EDD BUN #### [facility] [address] [place] [address] Creatinine [Mass/volume] in Serum or PlasmaOrdered By: Himanshu Borjas on 01-16-2024 Creatinine [Mass/Vol] 0.84 mg/dL Normal 0.60-1.20 [facility] Comment on above: Performed By: #### C EDD BUN #### [address] No Panel InformationOrdered By: Himanshu Borjas on 01-16-2024 Estimated GFR (CKD-EPI) > 60.0 mL/Min Pharmacy Creatinine Clearance (Chem N/A Urea nitrogen [Mass/volume] in Serum or PlasmaOrdered By: Himanshu Borjas on 01-16-2024 Urea nitrogen [Mass/Vol] 15 mg/dL Normal 7-25 Comment on above: Performed By: #### C SULEIMAN PUGA #### [place] [id number] [facility] 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 12-11-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 MAMM SCREENING BILATERAL W CAD MAMM [...] 1 b MAMM 1 YR Normal [facility] esophaguson 11-14-2023 [place] esophagus [facility] [place] [address] [place], [place] [id number] Fluoroscopy Report Signed Patient: Sly Coy MR#: [id number] : 1955 Acct:[id number] Age/Sex: 68 / F ADM Date: 11/14/23 Loc: XD Room: Type: [facility] Attending Dr: Himanshu Borjas APRN Copies to: Himanshu Borjas APRN Ordering Provider: Himanshu Borjas APRN Date of Service: 11/14/23 GA/GA esophagus: R05.9 - GA esophagus 11/14/2023 8:41 AM SIGNS AND SYMPTOMS: [...] Arnoldo Souza M.D.11/14/2023 2:00 PM Dictation Location: [place] [address] Transcribed By: [facility] 11/14/23 1400 Dictated By: Arnoldo Souza II, MD 11/14/23 1358 Signed By: 11/14/23 1400 Normal [facility] Basic Metabolic Profon 01-23 Anion gap [Moles/Vol] 10 mmol/L Normal 9-17 [facility] Comment on above: Performed By: #### B GAL, CBC #### [facility] [address] [facility] [place] [address] Route Sales Delivery Drivers Supervisor: Brooks Almazan MD BUN/CRE Ratio 30 High 9-20 [facility] Comment on above: Performed By: #### B MP, CBC #### [facility] [address] [facility] [place] [address] Route Sales Delivery Drivers Supervisor: Brooks Almazan MD Calcium [Mass/Vol] 8.9 mg/dL Normal 8.6-10.4 [facility] Comment on above: Performed By: #### B MP, CBC #### [facility] [address] [facility] [place] [address] Route Sales Delivery Drivers Supervisor: Brooks Almazan MD Chloride [Moles/Vol] 104 mmol/L Normal 98-107 [facility] Comment on above: Performed By: #### B MP, CBC #### [facility] [address] [facility] [place] [address] Route [employer] Supervisor: Brooks Almazan MD CO2 [Moles/Vol] 27 mmol/L Normal 20-31 [facility] Comment on above: Performed By: #### B MP, CBC #### [facility] [address] [place] [address] Route [employer] Supervisor: Brooks Almazan MD Creatinine [Mass/Vol] 0.5 mg/dL Normal 0.5-0.9 [facility] Comment on above: Performed By: #### B MP, CBC #### [facility] [address] [place] [address] [employer] Supervisor: Brooks Almazan MD GFR/1.73 sq M.predicted among non-blacks MDRD (S/P/Bld) [Vol rate/Area] mL/min/{1.73_m2} Normal >60 [facility] Comment on above: Result Comment: These [...] Performed By: #### B MP, CBC #### [facility] [address] [place] [address] Route [employer] D[employer] Supervisor: Brooks Almazan MD Glucose [Mass/Vol] 97 mg/dL Normal 70-99 [facility] Comment on above: Performed By: #### B MP, CBC #### [facility] [address] [place] [address], [place] [address] Route [employer] D[employer] Supervisor: Brooks Almazan MD Potassium [Moles/Vol] 4.8 mmol/L Normal 3.7-5.3 [facility] Comment on above: Result Comment: SPEC IMEN SLIGHTLY HEMOLYZED, RESULTS MAY BE ADVERSELY AFFECTED. Performed By: #### B MP, CBC #### [facility] [address] [facility] [place] [address] Route [employer] Delivery Drivers Supervisor: Brooks Almazan MD Sodium [Moles/Vol] 141 mmol/L Normal 135-144 [facility] Comment on above: Performed By: #### B MP, CBC #### [facility] [address] [place] [address]. [place] [address] Route [employer] D[employer] Supervisor: Brooks Almazan MD Urea nitrogen [Mass/Vol] 15 mg/dL Normal 8-23 [facility] Comment on above: Performed By: #### B MP, CBC #### [facility] [place] [place] [address] Route [employer] Delivery Drivers Supervisor: Brooks Almazan MD CBCon 01-23-2023 Erythrocyte distribution width (RBC) [Ratio] 12.4 % Normal 11.8-14.4 [facility] Comment on above: Performed By: #### B MP, CBC #### [facility] [address] [place] [address]. [place] [address] Route [employer] D[employer] Supervisor: Brooks Almazan MD Hematocrit (Bld) [Volume fraction] 40.3 % Normal 36.3-47.1 [facility] Comment on above: Performed By: #### B MP, CBC #### [facility] [place] [address] Route [employer] Delivery Drivers Supervisor: Brooks Almazan MD Hemoglobin (Bld) [Mass/Vol] 13.1 g/dL Normal 11.9-15.1 [facility] Comment on above: Performed By: #### B MP, CBC #### [facility] [address] [facility] [place] [place] [address] Route [employer] Delivery Drivers Supervisor: Brooks Almazan MD MCH (RBC) [Entitic mass] 30.0 pg Normal 25.2-33.5 [facility] Comment on above: Performed By: #### B MP, CBC #### [facility] [address] [place] [address]. [place] [address] Route [employer] Delivery Drivers Supervisor: Brooks Almazan MD MCHC (RBC) [Mass/Vol] 32.5 g/dL Normal 28.4-34.8 [facility] Comment on above: Performed By: #### B MP, CBC #### [facility] [address] [place] [address]. [place] [address] Route [employer] Drivers Supervisor: Brooks Almazan MD MCV (RBC) [Entitic vol] 92.4 fL Normal 82.6-102.9 [facility] Comment on above: Performed By: #### B MP, CBC #### [facility] [address] [place] [address] [employer] D[employer] Supervisor: Brooks Almazan MD NRBC Automated 0.0 per 100 WBC Normal 0.0 [facility] Comment on above: Performed By: #### B MP, CBC #### [facility] [address] [place] [address]. [place] [address] Route [employer] D[employer] Supervisor: Brooks Almazan MD Platelet mean volume (Bld) [Entitic vol] 9.3 fL Normal 8.1-13.5 [facility] Comment on above: Performed By: #### B MP, CBC #### [facility] [address] [place] [address]. [place] [address] Route [employer] Delivery Drivers Supervisor: Brooks Almazan MD Platelets (Bld) [#/Vol] 234 10*3/uL Normal 138-453 [facility] Comment on above: Performed By: #### B MP, CBC #### [facility] [address] [facility] [place] [place] [address] Route [employer] Supervisor: Brooks Almazan MD RBC (Bld) [#/Vol] 4.36 10*6/uL Normal 3.95-5.11 [facility] Comment on above: Performed By: #### B MP, CBC #### [facility] [address] [facility] [place] [place] [address] Route [employer] D[employer] Supervisor: Brooks Almazan MD WBC (Bld) [#/Vol] 7.1 10*3/uL Normal 3.5-11.3 [facility] Comment on above: Performed By: #### B MP, CBC #### [facility] [address] [place] [address]. [place] [address] Route [employer] Supervisor: Brooks Almazan MD CBC AUTO DIFFon 11-27-2021 BASO # 0.1 103/ul Normal 0.0-0.1 [facility] Comment on above: Performed By: #### C BC #### [facility] [address] [place] [address] Dr. Liliam Sanderson Basophils/100 WBC (Bld) 0.7 % Normal 0.2-2.0 [facility] Comment on above: Performed By: #### C BC #### [facility] [address] [place] [address] Dr. Liliam Sanderson EO # 0.2 103/ul Normal 0.0-0.7 [facility] Comment on above: Performed By: #### C BC #### [facility] [address] [place] [address] Dr. Liliam Sanderson Eosinophils/100 WBC (Bld) 2.2 % Normal 0.9-7.0 [facility] Comment on above: Performed By: #### C BC #### [facility] [address] [place] [address] Dr. Liliam Sanderson Erythrocyte distribution width (RBC) [Ratio] 12.0 % Normal 11.0-15.0 [facility] Comment on above: Performed By: #### C BC #### [facility] [address] [place] [address] Dr. Liliam Sanderson Hematocrit (Bld) [Volume fraction] 40.6 % Normal 36.0-48.0 [facility] Comment on above: Performed By: #### C BC #### [facility] [address] [place] [address] Dr. Liliam Sanderson Hemoglobin (Bld) [Mass/Vol] 13.3 g/dL Normal 12.0-16.0 [facility] Comment on above: Performed By: #### C BC #### [facility] [address] [place] [address] Dr. Liliam Sanderson IG # 0.03 10e3/ul Normal 0.00-0.03 [facility] Comment on above: Performed By: #### C BC #### [facility] [address] [place] [address] Dr. Liliam Sanderson IG % 0.3 % Normal 0.0-0.5 [facility] Comment on above: Performed By: #### C BC #### [facility] [address] [place] [address] Dr. Liliam Sanderson LYMPH # 3.2 103/ul Normal 1.2-3.8 [facility] Comment on above: Performed By: #### C BC #### [facility] [address] [place] [address] Dr. Liliam Sanderson Lymphocytes/100 WBC (Bld) 30.7 % Normal 20.5-60.0 [facility] Comment on above: Performed By: #### C BC #### [facility] [address] [place] [address] Dr. Liliam Sanderson MANUAL DIFF REQ NO Normal [facility] Comment on above: Performed By: #### C BC #### [facility] [address] [place] [address] Dr. Liliam Sanderson MCH (RBC) [Entitic mass] 30.2 pg Normal 26.7-34.0 [facility] Comment on above: Performed By: #### C BC #### [facility] [address] [place] [address] Dr. Lilima Sanderson MCHC (RBC) [Mass/Vol] 32.8 g/dL Normal 29.9-35.2 [facility] Comment on above: Performed By: #### C BC #### [facility] [address] [place] [address] Dr. Liliam Sanderson MCV (RBC) [Entitic vol] 92.1 fL Normal 81.0-99.0 [facility] Comment on above: Performed By: #### C BC #### [facility] [address] [place] [address] Dr. Liliam Sanderson MONO # 0.8 103/ul Normal 0.3-0.8 [facility] Comment on above: Performed By: #### C BC #### [facility] [address] [place] [address] Dr. Liliam Sanderson Monocytes/100 WBC (Bld) 7.5 % Normal 1.7-12.0 [facility] Comment on above: Performed By: #### C BC #### [facility] [address] [place] [address] Dr. Liliam Sanderson NEUT # 6.1 103/ul Normal 1.4-6.5 [facility] Comment on above: Performed By: #### C BC #### [facility] [address] [place] [address] Dr. Liliam Sanderson Neutrophils/100 WBC (Bld) 58.6 % Normal 43.0-75.0 [facility] Comment on above: Performed By: #### C BC #### [facility] [address] [place] [address] Dr. Liliam Sanderson Platelet mean volume (Bld) [Entitic vol] 8.8 fL Critically low 9.5-13.5 [facility] Comment on above: Performed By: #### C BC #### [facility] [address] [place] [address] Dr. Liliam Sanedrson PLT 264 103/ul Normal 150-450 [facility] Comment on above: Performed By: #### C BC #### [facility] [address] [address] [address] Liliam Sanderson RBC 4.41 106/ul Normal 4.20-5.40 [facility] Comment on above: Performed By: #### C BC #### [facility] [address] [address] [address] Liliam Sanderson WBC 10.4 103/ul Normal 4.0-11.0 [facility] Comment on above: Performed By: #### C BC #### [facility] [address] [address] [address] Liliam Sanderson LIPID PROFILEon 11-27-2021 CHOL-HDL RATIO NORM SEE BELOW Normal [facility] Comment on above: Result Comment: 3.3 - 4.4 LOW RISK 4.4 - 7.1 AVERAGE RISK 7.1 - 11.0 MODERATE RISK >11.0 HIGH RISK Performed By: #### C MP, LIPID #### [facility] [address] [place] [address] Dr. Liliam Sanderson Cholesterol [Mass/Vol] 204 mg/dL Critically high <=200 [facility] Comment on above: Performed By: #### C MP, LIPID #### [facility] [address] [place] [address] Dr. Liliam Sanderson Cholesterol in HDL [Mass/Vol] 46 mg/dL Normal 40-60 [facility] Comment on above: Performed By: #### C MP, LIPID #### [facility] [address] [place] [address] Dr. Liliam Sanderson Cholesterol in LDL [Mass/Vol] 125.4 mg/dL Normal [facility] Comment on above: Performed By: #### C MP, LIPID #### [facility] [address] [place] [address] Dr. Liliam Sanderson Cholesterol.total/Melony sterol in HDL [Mass ratio] 4.4 {ratio} Normal [facility] Comment on above: Performed By: #### C MP, LIPID #### [facility] [address] [address] [address] Liliam Sanderson HDL NORMAL > or = 60 mg/dl - LOW CARDIOVASCULAR RISK <40 mg/dl - HIGH CARDIOVASCULAR RISK Normal [facility] Comment on above: Performed By: #### C MP, LIPID #### [facility] [address] [address] [address] Liliam Sanderson LDL CALC NORMAL SEE BELOW Normal [facility] Comment on above: Result Comment: <100 mg/dl OPTIMAL 100 - 129 mg/dl NEAR OR ABOVE OPTIMAL 130 - 159 mg/dl BORDERLINE HIGH 160 - 189 mg/dl HIGH >190 mg/dl VERY HIGH Performed By: #### C MP, LIPID #### [facility] [address] [address] [address] Liliam Sanderson Triglyceride [Mass/Vol] 163 mg/dL Critically high <=150 [facility] Comment on above: Performed By: #### C MP, LIPID #### [facility] [address] [place] [address] Dr. Liliam Sanderson VLDL CALC 32.6 mg/dL Normal [facility] Comment on above: Performed By: #### C MP, LIPID #### [facility] [address] [address] [address] Liliam Sanderson PROF 14(COMP METB)on 022 Albumin [Mass/Vol] 4.1 g/dL Normal 3.4-5.0 [facility] Comment on above: Performed By: #### C MP, LIPID #### [facility] [address] [place] [address] Dr. Liliam Sanderson Albumin/Globulin [Mass ratio] 1.2 {ratio} Normal [facility] Comment on above: Performed By: #### C MP, LIPID #### [facility] [address] [address] [address] Liliam Sanderson ALP [Catalytic activity/Vol] 61 U/L Normal 46-116 [facility] Comment on above: Performed By: #### C MP, LIPID #### [facility] [address] [address] [address] Liliam Sanderson ALT [Catalytic activity/Vol] 20 U/L Normal 14-59 [facility] Comment on above: Performed By: #### C MP, LIPID #### [facility] [address] [address] [address] Liliam Sanderson Anion gap [Moles/Vol] 11.4 mmol/L Normal [facility] Comment on above: Performed By: #### C MP, LIPID #### [facility] [address] [address] [address] Liliam Sanderson AST [Catalytic activity/Vol] 12 U/L Critically low 15-37 [facility] Comment on above: Performed By: #### C MP, LIPID #### [facility] [address] [address] [address] Liliam Sanderson Bilirubin [Mass/Vol] 0.5 mg/dL Normal 0.2-1.0 [facility] Comment on above: Performed By: #### C MP, LIPID #### [facility] [address] [address] [address] Liliam Sanderson Calcium [Mass/Vol] 8.9 mg/dL Normal 8.5-10.1 [facility] Comment on above: Performed By: #### C MP, LIPID #### [facility] [address] [address] [address] Liliam Sanderson Chloride [Moles/Vol] 102 mmol/L Normal 98-107 [facility] Comment on above: Performed By: #### C MP, LIPID #### [facility] [address] [address] [address] Liliam Sanderson CO2 [Moles/Vol] 28.3 mmol/L Normal 21.0-32.0 [facility] Comment on above: Performed By: #### C MP, LIPID #### [facility] [address] [address] [address] Liliam Sanderson Creatinine [Mass/Vol] 0.66 mg/dL Normal 0.55-1.02 [facility] Comment on above: Performed By: #### C MP, LIPID #### [facility] [address] [address] [address] Liliam Sanderson EGFR-AF DOMINICAN >60 Normal >=60 [facility] Comment on above: Performed By: #### C MP, LIPID #### [facility] [address] [address] [address] Liliam Sanderson EGFR-NON AF DOMINICAN >60 Normal >=60 [facility] Comment on above: Performed By: #### C MP, LIPID #### [facility] [address] [address] [address] Liliam Sanderson Globulin (S) [Mass/Vol] 3.4 g/dL Normal [facility] Comment on above: Performed By: #### C MP, LIPID #### [facility] [address] [address] [address] Liliam Sanderson Glucose [Mass/Vol] 100 mg/dL Normal 74-106 [facility] Comment on above: Performed By: #### C MP, LIPID #### [facility] [address] [address] [address] Liliam Sanderson Potassium [Moles/Vol] 3.7 mmol/L Normal 3.5-5.1 [facility] Comment on above: Performed By: #### C MP, LIPID #### [facility] [address] [address] [address] Liliam Sanderson Protein [Mass/Vol] 7.5 g/dL Normal 6.4-8.2 [facility] Comment on above: Performed By: #### C MP, LIPID #### [facility] [address] [address] [address] Liliam Sadnerson Sodium [Moles/Vol] 138 mmol/L Normal 136-145 [facility] Comment on above: Performed By: #### C MP, LIPID #### [facility] [address] [address] [address] Liliam Sanderson Urea nitrogen [Mass/Vol] 14.0 mg/dL Normal 7.0-18.0 [facility] Comment on above: Performed By: #### C MP, LIPID #### [facility] [address] [address] [address] Liliam Sanderson Urea nitrogen/Creatinine [Mass ratio] 21.2 mg/mg Normal [facility] Comment on above: Performed By: #### C MP, LIPID #### [facility] [address] [place] [address] Dr. Liliam Sanderson Vital Signs Date Time Vital Sign Value Performing Clinician Facility 09-10-2024 15:01-0500 Body height 152.4 cm [facility] 09-10-2024 15:01-0500 Body mass index (BMI) [Ratio] 23.2 kg/m2 09-10-2024 15:01-0500 Body weight 53.9 kg [facility] 08-27-2024 13:52-0500 Blood Pressure Location JASMIN NKANSAH-AMANKRA [facility] 08-27-2024 13:52-0500 Diastolic blood pressure 78 mm[Hg] JASMIN NKANSAH-AMANKRA [facility] 08-27-2024 13:52-0500 Heart rate 66 /min JASMIN NKANSAH-AMANKRA [facility] 08-27-2024 13:52-0500 Systolic blood pressure 140 mm[Hg] JASMIN NKANSAH-AMANKRA [facility] 08-05-2024 11:05-0500 Body mass index (BMI) [Ratio] 22.3 kg/m2 Micaela Monroy MD Work Phone: [facility] 08-05-2024 11:05-0500 Body temperature 97 [degF] Micaela Monroy MD Work Phone: [facility] 08-05-2024 11:05-0500 Body weight 53.52 kg Micaela Monroy MD Work Phone: [facility] 08-05-2024 11:05-0500 Diastolic blood pressure 45 mm[Hg] Micaela Monroy MD Work Phone: [facility] 08-05-2024 11:05-0500 Heart rate 56 /min Micaela Monroy MD Work Phone: [facility] 08-05-2024 11:05-0500 SaO2% (BldA) [Mass fraction] 98 % Micaela Monroy MD Work Phone: [facility] 08-05-2024 11:05-0500 Systolic blood pressure 108 mm[Hg] Micaela Monroy MD Work Phone: [facility] 07-30-2024 15:32-0500 Body height 152.4 cm [facility] 07-30-2024 15:32-0500 Body mass index (BMI) [Ratio] 23.2 kg/m2 07-30-2024 15:32-0500 Body weight 53.97 kg [facility] 07-30-2024 15:32-0500 Diastolic blood pressure 76 mm[Hg] 07-30-2024 15:32-0500 Heart rate 68 /min [facility] 07-30-2024 15:32-0500 Systolic blood pressure 132 mm[Hg] 07-24-2024 08:55-0500 Blood Pressure Location Elizabeth Lue [facility] 07-24-2024 08:55-0500 Diastolic blood pressure 68 mm[Hg] Elizabeth Lue [facility] 07-24-2024 08:55-0500 Heart rate 68 /min Elizabeth Lue [facility] 07-24-2024 08:55-0500 Systolic blood pressure 112 mm[Hg] Elizabeth Lue [facility] 07-01-2024 11:39-0500 Body height 154.9 cm Joey Bolden MD Work Phone: [facility] 07-01-2024 11:39-0500 Body mass index (BMI) [Ratio] 22.98 kg/m2 Joey Bolden MD Work Phone: [facility] 07-01-2024 11:39-0500 Body weight 55.16 kg Joey Bolden MD Work Phone: [facility] 07-01-2024 11:39-0500 Diastolic blood pressure 72 mm[Hg] Joey Bolden MD Work Phone: [facility] 07-01-2024 11:39-0500 Heart rate 60 /min Joey Bolden MD Work Phone: [facility] 07-01-2024 11:39-0500 SaO2% (BldA) [Mass fraction] 100 % Joey Bolden MD Work Phone: [facility] 07-01-2024 11:39-0500 Systolic blood pressure 140 mm[Hg] Joey Bolden MD Work Phone: [facility] 05-30-2024 09:26-0500 Body height 152.4 cm [facility] 05-30-2024 09:26-0500 Body mass index (BMI) [Ratio] 24 kg/m2 05-30-2024 09:26-0500 Body weight 55.96 kg [facility] 05-30-2024 09:26-0500 Diastolic blood pressure 68 mm[Hg] 05-30-2024 09:26-0500 Heart rate 75 /min [facility] 05-30-2024 09:26-0500 Systolic blood pressure 122 mm[Hg] 03-05-2024 15:04-0400 Body height 152.4 cm RISA Martínez Work Phone: 03-05-2024 15:04-0400 Body mass index (BMI) [Ratio] 24.4 kg/m2 RISA Martínez Work Phone: 03-05-2024 15:04-0400 Body weight 56.69 kg [employer]OCIATE ATTORNEYKhushi Martínez Work Phone: 01-02-2024 14:02-0400 Body height 152.4 cm ASSOCIATE ATTORNEYKhushi Hernandezlim Work Phone: 01-02-2024 14:02-0400 Body mass index (BMI) [Ratio] 25.4 kg/m2 [employer] ATTORNEYKhushi Hernandezlim Work Phone: 01-02-2024 14:02-0400 Body weight 59 kg [employer]OCIATE ATTORNEYKhushi Martínez Work Phone: 10-26-2023 11:18-0400 Body height 153.67 cm [facility] 10-26-2023 11:18-0400 Body mass index (BMI) [Ratio] 25 kg/m2 10-26-2023 11:18-0400 Body weight 58.96 kg [facility] 05-10-2023 09:48-0400 Blood Pressure Location Elizabeth Lue [facility] 05-10-2023 09:48-0400 Diastolic blood pressure 67 mm[Hg] Elizabeth Lue [facility] 05-10-2023 09:48-0400 Heart rate 73 /min Elizabeth Lue [facility] 05-10-2023 09:48-0400 Respiratory rate 16 /min Elizabeth Lue [facility] 05-10-2023 09:48-0400 Systolic blood pressure 101 mm[Hg] Elizabeth Lue [facility] 02-14-2023 14:00-0400 Body height 153.67 cm Himanshu Scovanner Other [employer] Other 02-14-2023 14:00-0400 Body mass index (BMI) [Ratio] 24.78 kg/m2 Himanshu Scovanner Other [employer] Other 02-14-2023 14:00-0400 Body weight 58.51 kg Himanshu Scovanner Other [employer] Other 02-14-2023 14:00-0400 Diastolic blood pressure 84 mm[Hg] Himanshu Scovanner Other [employer] Other 02-14-2023 14:00-0400 Systolic blood pressure 142 mm[Hg] Himanshu Scovanner Other [employer] Other 11-15-2022 16:30-0400 Body height 153.67 cm Himanshu Scovanner Other [employer] Other 11-15-2022 16:30-0400 Body mass index (BMI) [Ratio] 26.27 kg/m2 Himanshu Scovanner Other [employer] Other 11-15-2022 16:30-0400 Body weight 62.05 kg Himanshu Scovanner Other [employer] Other 11-15-2022 16:30-0400 Diastolic blood pressure 76 mm[Hg] Himanshu Scovanner Other [employer] Other 11-15-2022 16:30-0400 Systolic blood pressure 128 mm[Hg] Himanshu Scovanner Other [employer] Other Encounters Encounter Date Encounter Type Care Provider Facility Start: 09-20-2024 End: 09-20-2024 ambulatory Elizabeth Lott [facility] Work Phone: Start: 09-20-2024 End: 09-20-2024 Departed Referred Elizabeth Lott MD Work Phone: [facility] Start: 09-10-2024 End: 09-10-2024 ambulatory [facility] Work Phone: Start: 09-10-2024 End: 09-10-2024 Patient encounter procedure [facility] Work Phone: Start: 08-27-2024 End: 08-27-2024 ambulatory JASMIN NKANSAH-AMANKRA Facility:[facility] Start: 08-27-2024 End: 08-27-2024 Patient encounter procedure JASMIN NKANSAH-AMANKRA [facility] Start: 08-13-2024 End: 08-13-2024 ambulatory JASMIN NKANSAH-AMANKRA Facility:[facility] Start: 08-13-2024 End: 08-13-2024 Patient encounter procedure JASMIN NKANSAH-AMANKRA [facility] Start: 08-07-2024 End: 08-07-2024 Telephone encounter Concepción Murphy RN [facility] Comment on above: Surgical Or Dental C learance Start: 08-05-2024 End: 08-05-[address] [facility] Start: 08-05-2024 End: 08-05-2024 Patient encounter procedure Micaela Monroy MD Work Phone: General Surgery Comment on above: Hiatal hernia (Prima ry Dx) Start: 07-30-2024 End: 07-30-2024 ambulatory NON STAFF [facility] Work Phone: Start: 07-30-2024 End: 07-30-2024 Patient encounter procedure [facility] Physician [facility] Work Phone: Start: 07-24-2024 ambulatory Elizabeth Lott Facility:C D:[id number] Start: 07-24-2024 End: 07-24-2024 ambulatory Elizabeth Lott Facility:[facility] Start: 07-24-2024 End: 07-24-2024 Patient encounter procedure Elizabeth Lott [facility] Start: 07-01-2024 End: 07-01-2024 Office outpatient visit 25 minutes Joey Bolden MD Work Phone: [facility] Comment on above: Hx of right coronary artery stent placement (Primary Dx); Primary hypertension; Hyperlipidemia, unspecified hyperlipidemia type; Smoker Start: 07-01-2024 End: 07-01-2024 [facility] Start: 06-28-2024 End: 06-28-2024 Telephone encounter Clover Wyman CMA [facility] Start: 05-31-2024 End: 05-31-2024 Telephone encounter Micaela Monroy MD Work Phone: Colorectal Surgery Start: 05-31-2024 End: 05-31-2024 Patient encounter procedure [facility] [place] Work Phone: Start: 05-31-2024 End: 05-31-2024 ambulatory Himanshu Borjas Facility: Start: 05-30-2024 End: 05-30-2024 ambulatory [facility] Work Phone: Start: 05-30-2024 End: 05-30-2024 Patient encounter procedure [facility] Physician [facility] Gastroenterology Work Phone: Start: 03-05-2024 End: 03-05-2024 ambulatory ASSOCIATE ATTORNEY Nadira Martínez Work Phone: [facility] Work Phone: Start: 03-05-2024 End: 03-05-2024 Patient encounter procedure ASSOCIATE ATTORNEYKhushi Martínez Work Phone: [facility] Work Phone: Start: 02-01-2024 End: 02-01-2024 Refill Los Lee MD Work Phone: [facility] Comment on above: Med Refill Start: 01-30-2024 End: 01-30-2024 ambulatory Albaniayifan Toney Facility:[facility] Start: 01-30-2024 End: 01-30-2024 Patient encounter procedure Albania Toney [facility] Start: 01-24-2024 End: 01-24-2024 ambulatory Elizabeth Lott Facility:[facility] Start: 01-24-2024 End: 01-24-2024 Patient encounter procedure Elizabeth Lott [facility] Start: 01-16-2024 End: 01-16-2024 Patient encounter procedure RISA Nadira Martínez Work Phone: [facility] [place] Work Phone: Start: 01-16-2024 End: 01-16-2024 ambulatory ASSOCIATE ATTORNEY Nadira Martínez Work Phone: [facility] Work Phone: Start: 01-02-2024 End: 01-02-2024 ambulatory ASSOCIATE ATTORNEY Nadira aMrtínez Work Phone: [facility] Work Phone: Start: 01-02-2024 End: 01-02-2024 Patient encounter procedure ASSOCIATE ATTORNEY Nadiraeffie Martínez Work Phone: [facility] Work Phone: Start: 12-08-2023 End: 12-08-2023 ambulatory NADIRA MARTÍNEZ [facility] Start: 11-14-2023 End: 11-14-2023 Patient encounter procedure RISA Martínez Work Phone: [facility] Work Phone: Start: 11-14-2023 End: 11-14-2023 ambulatory RISA Martínez Work Phone: [facility] Work Phone: Start: 10-26-2023 End: 10-26-2023 ambulatory [facility] Work Phone: Start: 10-26-2023 End: 10-26-2023 Patient encounter procedure [facility] Work Phone: Start: 07-24-2023 End: 07-24-2023 Patient encounter procedure Elizabeth Lott [facility] Start: 07-05-2023 Refill Juan David sser ASSOCIATE ATTORNEY-SEQUINS STRINGER Work Phone: [facility] Comment on above: Med Refill Start: 05-10-2023 End: 05-10-2023 Patient encounter procedure Elizabeth Lott [facility] Start: 02-14-2023 End: 02-14-2023 ambulatory Himanshu Borjas Other [employer] Other Start: 02-14-2023 Office outpatient vi sit 15 minutes Himanshu Borjas [facility] Start: 01-23-2023 End: 01-23-2023 ambulatory LOS LEE [facility] Start: 11-15-2022 End: 11-15-2022 ambulatory Himanshu Borjas Other [employer] Other Start: 11-15-2022 Office outpatient ne w 30 minutes Himanshu Borjas [facility] Start: 09-30-2022 End: 09-30-2022 ambulatory [facility] Facility: Start: 06-21-2022 End: 06-24-2022 ambulatory CHANEL HARRELL [facility] Start: 06-21-2022 End: 06-23-2022 Subsequent hospital visit by physician [facility] Ir Nurse [address] [facility] [address] Scan Comment on above: [...] (finding) Elizabeth Lue Start: 07-10-2018 Hysterectomy JASMIN BHANDARI Comment on above: *still has ovaries Start: [...] RSV Vaccine (1 - 1-dose 75+ series) [facility] Start: 01-23-2026 Diabetes Screening Diabetes Screenin g [facility] Start: 07-01-2025 Adult BMI Screening Adult BMI Screen ing [facility] Start: 07-01-2025 Tobacco Screening Tobacco Screening [facility] Start: 12-07-2024 Screening for malign ant neoplasm of breast Mammogram Screening [facility] Start: 09-20-2024 Urine culture Start: 09-20-2024 Bacteria identified in Urine by Culture Urine Culture Start: 07-10-2024 Advance Directive Discussion Advance Directive Discussion [facility] Start: 07-01-2024 End: 07-01-2024 Patient encounter procedure 07/01/2024 12:00 PM EST Office Visit [facility] [address] [place] [address] Joey Bolden MD [address] [place] [address] [facility] Start: 06-19-2024 Adult BMI Screening Adult [facility] Screen [facility] Start: 06-19-2024 Tobacco Screening Tobacco Screening [facility] Start: 05-30-[address] [facility] Work Phone: Start: 03-10-2024 Covid-19 Vaccine ( season) Covid-19 Vaccine ( season) [facility] Start: 03-10-2024 Influenza vaccination C [facility] Start: 01-02-[address] [facility] Work Phone: Start: 08-17-2023 Tobacco Counseling Tobacco Counselin g [facility] Start: 07-10-2023 Advance Directive Discussion Advance Directive Discussion [facility] Start: 03-10-2023 Influenza vaccination Influenza Vacc ine [facility] Start: 06-15-2022 Annual Wellness Visi t (AWV) Annual Wellness Visit (AWV) [facility] [place] Start: 02-07-2022 Influenza vaccination Flu vaccine (# 1) [facility] Start: 11-09-2021 Diabetes Screening Diabetes Screenin g [facility] Start: 2020 Fall Risk Screening Fall Risk Screen ing [facility] Start: 2020 Pneumococcal 65+ yea rs Vaccine (1 - PCV) Pneumococcal 65+ years Vaccine (1 - PCV) [facility] Start: 2020 Pneumococcal Vaccine : 65+ (1 of 1 - PCV) Pneumococcal Vaccine: 65+ (1 of 1 - PCV) [facility] Start: 2020 Screening for osteoporosis Bone Density Screening [facility] Start: 2010 Screening for osteoporosis DEXA (modify frequency per FRAX score) [facility] [place] Start: 2005 Administration of varicella zoster vaccine Zoster (Shingles) Vaccine (1 of 2) [facility] Start: 2005 Pneumococcal Vaccine : 50+ (1 of 1 - PCV) Pneumococcal Vaccine: 50+ (1 of 1 - PCV) [facility] Start: 2005 Screening for malign ant neoplasm of breast Breast cancer screen [facility] [place] Start: 2005 Shingles vaccine (1 of 2) Hinojosa gles vaccine (1 of 2) [facility] Start: 2005 Shingrix Vaccine (1 of 2) Hinojosa grix Vaccine (1 of 2) [facility] Start: 2000 Lipid panel Lipid Screening [facility] Start: 2000 Screening for malign ant neoplasm of colon [facility] Start: 1995 Lipid panel Lipids [facility] Start: 1995 Screening for malign ant neoplasm of breast Mammogram Screening [facility] Start: 1974 DTaP,Tdap and Td Vac cines (1 - Tdap) DTaP,Tdap and Td Vaccines (1 - Tdap) [facility] Start: 1974 DTaP/Tdap/Td vaccine (1 - Tdap) DTaP/Tdap/Td vaccine (1 - Tdap) [facility] Start: 1974 Urine microalbumin profile DTaP,Tdap,Td Vaccine (1 - Tdap) [facility] Start: 1973 Anxiety Screening Anxiety Screening [facility] Start: 1973 Depression Screening Depression Scre ing [facility] Start: 1973 Hepatitis C screening B ON [facility] Start: 1967 Depression Screen Depression Screen [facility] Start: 1967 Depression Screening Depression Scre ening [facility] Start: 03-06-1956 COVID-19 Vaccine (#1) COVID-19 Vacci ne (#1) [facility] Start: 1955 Medicare Annual Well ness Visit Medicare Annual Wellness Visit [facility] Start: 1955 Tobacco Counseling Tobacco Counselin g [facility] End: 01-31-2025 CBC panel - Blood by Automated count CBC Lab Routine Medication management 1 Occurrences starting 02/01/2024 until 01/31/2025 [facility] Work Phone: Comment on above: 1 Occurrences starti ng 02/01/2024 until 01/31/2025 Cryptosporidium sp A g [Presence] in Stool by Immunoassay CT Abdomen and Pelvi s W contrast IV End: 06-21-2022 CTA CORON EJECT FRAC WALL MOTION CTA CORON EJECT FRAC WALL MOTION Imaging Routine Chest pain, unspecified type Dizziness Abnormal stress ECG 1 Occurrences starting 06/21/2022 until 06/21/2022 [facility] [place] Work Phone: Comment on above: 1 Occurrences starti ng 06/21/2022 until 06/21/2022 Fluoroscopy of esophagus [facility] Giardia lamblia Ag [Presence] in Stool by Immunoassay End: 07-01-2025 Lipid 1996 panel - Serum or Plasma Lipid profile Lab Routine Primary hypertension 1 Occurrences starting 07/01/2024 until 07/01/2025 [facility] Work Phone: Comment on above: 1 Occurrences starti ng 07/01/2024 until 07/01/2025 Patient referral [facility] Work Phone: [facility] Immunizations Immunization Date Immunization Notes Care Provider Fa cility 09-30-2022 tetanus toxoid, redu yonathan diphtheria toxoid, and acellular pertussis vaccine, adsorbed JASMIN NKANSAH-AMANKRA [facility] 03-12-2021 SARS-CoV-2 (COVID-19 ) mRNA BNT-162b2 vax JASMIN NKANSAH-AMANKRA [facility] Comment on above: Result Comment: 2024: [id number] 02-19-2021 SARS-CoV-2 (COVID-19 ) mRNA BNT-162b2 vax JASMIN NKANSAH-AMANKRA [facility] Comment on above: Result Comment: 2024: [id number] Payers Date Payer Category Payer Self-pay 2021 Medicare [id number] 2021 Medicare HMO [employer] MEDICARE [id number] 1959 Medicare [id number] 1955 Unknown [id number] 1955 Unknown [id number] [id number] 1955 Unknown [id number] [id number] 1955 Unknown [id number] [id number] 1955 Unknown [id number] [id number] 6 1955 Unknown [id number] 2.16.840.1.127010.3.579.2.128 6 1955 Unknown [id number] [id number] 1955 Unknown [id number] [id number] 1955 Unknown [id number] [id number] 1955 Unknown [id number] [id number] 1955 Unknown [id number] [id number] Medicare Medicare [id number] Unknown HCAP/HFA/FAP Active [id number] Unknown [id number] [id number] Unknown [id number] [id number] Unknown [id number] [id number] Unknown [id number] [id number] Social History Date Type Detail Facility Tobacco smoking stat [facility] Tobacco smoking consumption unknown [facility] [employer] Phone: Start: 1955 Sex Assigned At Not on file [facility] [employer] Phone: Start: 08-19-2020 End: 12-08-2023 Sex Assigned At [facility] Start: 05-10-2023 End: 08-27-2024 Tobacco smoking status Light tobacco smoker (finding) [facility] Start: 12-20-2022 End: 07-30-2024 Tobacco smoking status NHIS Smoker (finding) Start: 1955 Sex Assigned At Female F [facility] Start: 05-30-2024 End: 09-22-2024 Sex Female (finding) Start: 10-03-2014 End: 08-05-2024 Tobacco smoking status NHIS Ex-smoker [facility] Start: 12-20-1975 End: 12-19-2012 History of tobacco use Cigarette Smoker [employer] Start: 10-03-2014 End: 08-19-2020 Cigarettes smoked current (pack per day) - Reported 0.5 [employer] Start: 10-03-2014 End: 04-27-2022 Tobacco use and exposure Smokeless tobacco non-user [facility] Start: 10-21-2014 End: 08-05-2024 Alcoholic beverage intake Current non-drinker of alcohol (finding) [facility] Start: 04-27-2022 Tobacco smoking stat us NHIS Smokes tobacco daily [facility] Start: 06-19-2023 End: 12-08-2023 Alcoholic beverage intake Ex-drinker (finding) [facility] Childcare Unknown [facility] Start: 04-27-2022 Tobacco Comment has been decre asing daily [facility] Start: 05-06-2022 Alcohol Comment social--rare [facility] Functional Status Date Assessment Result Facility 08-27-2024 Functional Status N/A [facility] 07-24-2024 Functional Status N/A [facility] 05-10-2023 Functional Status N/A [facility] Clinical Notes 11-15-2022 to 08-27-2024 Telephone [...] require a prescription. You can also purchase shly-xlc-qdttxxv medicines. Medicines may have nicotine in them [...] and encouragement. Call telephone quitlines, such as 1-143-BRNV-NOW, reach out to support groups, or work [...] provider. Document Revised: 06/17/2022 Document Reviewed: 06/17/2022 [employer] Patient Education 2023 [employer]. 08/27/2024 14:10:40 How to Use a Vaginal [...] vagina. Follow these instructions at home: Take jyfn-wcu-azpmvqi and prescription medicines only as told by [...] provider. Document Revised: 12/24/2020 Document Reviewed: 12/24/2020 [employer] Patient Education 2023 [employer]. Follow Up Care 08/14/2024 09:26:00 With:THONY BOB, JASMIN, MARKL Address: When: Unknown [facility] 08-27-2024 Note Patient Education Obstetrics and Gynecology [...] Follow these instructions at home: ??? Take pvpr-ilo-fmlulnw and prescription medicines only as told by [...] provider. Document Revised: 12/24/2020 Document Reviewed: 12/24/2020 [employer] Patient Education ? 2023 [employer] Pulmonary Medicine Steps to Quit Smoking [...] provider if you (more content not included)... [facility] 08-07-2024 Miscellaneous Notes Surgeon: Dr. Elizabeth Lott Type of surgery: Rt ESWL for kidney stones Date of surgery: 10/02/24 Surgery location: [facility] Type of anesthesia: General On a blood thinner?: N/A On an antiplatelet?: ASA Plavix- Would like to hold both for 5-7 days Had CARRILLO to RCA 01/2023 Date of last EK07/01/24 History of CVA/TIA, DVT/PE? None known Last saw Dr. Bolden 07/01/24 Noted. Moderate risk, risk non prohibitive. Can discontinue aspirin indefinitely. Hold Plavix for 5-7 days prior to procedure and resume when cleared afterwards. Thank you Note created and faxed documented in this encounter [employer] 08-07-2024 Telephone encounter Note Surgeon: Dr. Elizabeth Lott Type of surgery: Rt ESWL for kidney stones Date of surgery: 10/02/24 Surgery location: [facility] Type of anesthesia: General On a blood thinner?: N/A On an antiplatelet?: ASA Plavix- Would like to hold both for 5-7 days Had CARRILLO to RCA 01/2023 Date of last EK07/01/24 History of CVA/TIA, DVT/PE? None known Last saw Dr. Bolden 07/01/24 [facility]-07[facility]24 Telephone encounter Note Noted. Moderate risk, risk non prohibitive. Can discontinue aspirin indefinitely. Hold Plavix for 5-7 days prior to procedure and resume when cleared afterwards. Thank you [facility] [employer] 08-07-2024 Telephone encounter Note Note created and faxed [facility] 08-05-2024 Note HNO ID: [id number] Author: MICAELA MONROY MD Service: ? Author [...] with more than 50% of the total qffz-lm-njkw time of the visit in counseling / coordination of care. [facility] 08-05-2024 History of Presen t illness Narrative [...] with more than 50% of the total qsvk-eu-vvkr time of the visit in counseling / coordination of care. documented in this encounter [facility] 07-30-2024 Evaluation note Diagnosis Onset Date Resolution GERD (gastroesophageal reflux disease) acute July 30 3:30pm Irritable bowel syndrome with diarrhea acute July 112024 3:30pm Nausea acute July 30, 2024 3:30pm Diarrhea acute September 10 3:00pm Sliding hiatal hernia acute [facility] 2024 3:00pm [facility] Work Phone: 1(707) 897-707301-21-2025 Evaluation note* Diagnosis Onset Date Resolution Status Admit Date GERD (gastroesophageal reflu x disease) acute July 30 3:30pm Irritable bowel syndrome wit h diarrhea acute July 30 3:30pm Nausea acute July 30, 2024 3:30pm GERD (gastroesophageal reflu x disease) acute September 10, 2024 3:00pm Sliding hiatal hernia acute Mar 2024 3:00pm [facility] Work Phone: 1(753) 735-642601-15-2025 Hospital Discharge instructions Patient Education 07/24/2024 09:48:55 [...] include: ?8 oz (237 mL) of milk, juqfyxv-eiuucpdclhae-clfhs milk, and calcium- fortifiedfruit juice. Calcium-fortified means [...] ?Spinach (cooked), rhubarb, beets, sweet potatoes, and Anguillan chard. ?Peanuts. ?Potato chips, mosotho fries, and baked potatoes with skin on. ?Nuts and nut products. ?Chocolate. If you regularly take a diuretic medicine, make sure to eat at least 1 or 2 servings of fruits or vegetables that are high in potassium each day. These include: ?Avocado. ?Banana. ?Florence, prune, carrot, or tomato juice. ?Baked potato. [...] magnesium, fish oil, or vitamin B6. Take pbzw-tec-ummbqhh and prescription medicines only as told by [...] Casseroles. Pizza. Lasagna. Frozen meals. Potato chips. Bermudian fries. The items listed above may not [...] provider. Document Revised: 10/06/2022 Document Reviewed: 10/06/2022 [employer] Patient Education 2023 [employer]. Follow Up Care 04/24/2024 16:03:36 With:Oren BOB, JOCELYN Temple, URO Address: When: Unknown Comments:Schedule ESWL [facility] 01-15-2025 NotePatient Education Nephrology Dietary Guidelines to [...] ? 8 oz (237 mL) of milk, ottxnzh-ncawxynroezb-iuvbe milk, and calcium- fortifiedfruit juice. Calcium-fortified means [...] Spinach (cooked), rhubarb, beets, sweet potatoes, and Anguillan chard. ? Peanuts. ? Potato chips, mosotho fries, and baked potatoes with skin on. ? Nuts and nut products. ? Chocolate. ??? If you regularly take a diuretic medicine, make sure to eat at least 1 or 2 servings of fruits or vegetables that are high in potassium each day. These include: ? Avocado. ? Banana. ? Florence, prune, carrot, or tomato juice. ? Baked [...] fish oil, or vitamin B6. ??? Take yjud-sia-rxsanew and prescription medicines only as told by your health (more content not included)...[facility]12-[facility] History of Present illness Narrative* Joey Bolden MD - 07/01/2024 12:00 PM EST Sly Coy Date of visit: 07/01/2024 Date of : 1955 Age: 68 y.o. 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 SYLVIA W/PT History of Present Illness Patient is [...] 12/24/2020 Performed by Tyler Wesley MD at [facility] DILATION AND CURETTAGE OF UTERUS ESOPHAGOGASTRODUODENOSCOPY ESOPHAGOGASTRODUODENOSCOPY 12/20/2022 ESOPHAGOGASTRODUODENOSCOPY N/A 12/24/2020 Performed by Tyler Wesley MD at [facility] HYSTERECTOMY 01/15/2018 LASER ABLATION uterine LITHOTRIPSY [...] pain CAD s/p CARRILLO to RCA at [facility] 01/2023 Normal EF TTE 04/2022 and SPECT [...] in about 6 months (around 12/30/2024). PCP: [facility] Edith Referring Physician: Nadira Martínez, ASSOCIATE ATTORNEY-SEQUINS STRINGER [address] [place] [address] documented in this encounterWooster Community HospitalMiName Helen Devos Children'S [id number] Instructions* Patient Instructions* Suzette Haskins CMA - 07/01/2024 12:00 PM EST Are You Ready To Kick The Habit? Free Tobacco Cessation Resources [facility] Services [facility] Tobacco [facility] Centers provide all employees with free tobacco cessation services that include: Counseling to understand nicotine addiction Education about medications that can help you successfully quit Assistance with developing a plan to quit Call to set up an individual appointment or find out when group classes will be held: Pete lim [facility]: [phone] [facility]: [phone] [facility]: [phone] [facility]: [phone] Quit Smoking Action Plan and Resources [facility] offers an eight-week, online smoking cessation plan to all [facility] employees, regardless of whether [employer] is your medical insurance provider. Go to www.Cinnafilm.[email or web address]/employeewellness and click the Health Risk Assessment and Resources link to get started. In the [employer] menu, click Action Plans instead of Health Risk Assessment to access the Quit Smoking Action Plan. Additional smoking cessation resources are also available to all [facility] employees on the [employer] web page at www.[employer]ile/quitsmoking. [employer] Tobacco Cessation Program If [employer] is your medical insurance provider, there are more free resources available to you, including: No copays or deductibles on local tobacco cessation counseling services to help you quit Prescription assistance for tobacco cessation medications to help you quit For details about the tobacco cessation program available to [employer] members, go to www.Perfect Channel.InVisioneer (Search: Tobacco Cessation Program). [place] Tobacco Quit Line 5-063-URXE-NOW ( ) is a toll-free, telephonic service that helps [place] residents quit smoking and using tobacco. It is staffed by experts who tailor a quit plan for you and provide you with advice. [place] Tobacco Quit Line 5-036-VCNV-NOW ( ) is a toll-free, telephonic service that helps [place] residents quit smoking and using tobacco. It is staffed by experts who tailor a quit plan for you and provide you with advice. Two weeks of nicotine replacement therapy may be provided at no charge, if needed. Additional Resources These national organizations also offer free information and resources to help you quit tobacco: [place] [employer]--www.cancer.org/healthy/stayawayfromtobacco [place] [employer]--www.heart.org (Search: Quit Smoking) Centers for Disease Control and Prevention--www.cdc.gov/tobacco [place] [employer]--www.lungusa.org documented in this encounterWooster Community HospitalBreak30 [id number] Miscellaneous Notes* Telephone Encounter - Clover Wyman CMA - 06/28/2024 9:23 AM EST Called patient to remind them to bring their most current copy of their medication list with them to their appt. Patient verbalizes understanding. [facility] Telephone encounter Note* Telephone Encounter - Clover Wyman CMA - 06/28/2024 9:23 AM EST Called patient to remind them to bring their most current copy of their medication list with them to their appt. Patient verbalizes understanding. [facility] Telephone encounter Note* Telephone Encounter - Compa Tavares - 05/31/2024 4:00 PM EST For documentation purpose- Left a detail message for the patient to schedule an appointment with Dr. Monroy (40 mins slot). Referral from [facility]. Thank you [facility]11-22-2024 Miscellaneous Notes* Telephone Encounter - Compa Tavares - 05/31/2024 4:00 PM EST For documentation purpose- Left a detail message for the patient to schedule an appointment with Dr. Monroy (40 mins slot). Referral from [facility]. Thank you documented in [facility] encounterThe [facility]-2024 Evaluation note* Diagnosis Onset Date Resolution Status Admit Date Diarrhea acute May 30, 2024 9:21am Esophageal dysmotility acute No vem2023 9:21am GERD (gastroesophageal reflu x disease) acute May 30, 024 9:21am Nausea acute May 30, 2024 9:21am Sliding hiatal hernia acute May 9:21am GERD (gastroesophageal reflu x disease) acute July 30 3:30pm Irritable bowel syndrome wit h diarrhea acute July 30 3:30pm Nausea acute July 30, 2024 3:30pm [facility] Work Phone: 1(959) 253-690508-27-2024 Evaluation note* Diagnosis Onset Date Resolution Status Admit Date Dyspepsia acute March 05, 2 024 2:54pm GERD (gastroesophageal reflu x disease) acute March 05 2:54pm Sliding hiatal hernia acute Feb ust 2023 2:54pm Diarrhea acute May 30, 2024 9:21am GERD (gastroesophageal reflu x disease) acute May 30, 2 024 9:21am [facility] Work Phone: 1(503) 898-275807-25-2024 Miscellaneous Notes* Telephone Encounter - Chelsey Biggs RN - 02/01/2024 1:35 PM EDT OV-06/19/2023 [facility]-02/10/2023 Letter sent via mail for reminder of labs and appointment documented in this encounterTrinity Health System07-25-2024 Telephone encounter Note* Telephone Encounter - Chelsey Biggs RN - 02/01/2024 1:35 PM EDT OV-06/19/2023 [facility]-02/10/2023 Letter sent via mail for reminder of labs and appointment [facility] Evaluation note* Author Himanshu Borjas Authored January 02, 2024 2:23 pm Patient is positive for dysp epsia, patient notes dysphagia, epigastric pain, globus sensation and daily nausea Patient is also positive for abdominal pain [facility] Work Phone: 1(538) 111-524606-25-2024 Hospital Discharge instructionsAmbulatory Orders* Referral to Gastroenterology Time Frame: 01/02/24, Location: None Selected [facility] Work Phone: 1(323) 833-653702-01-2024 Hospital Discharge instructions Follow Up Care 08/10/2023 14:01:54 With:Oren BOB, JOCELYN Temple, URO Address: [address], [facility] [place] [address] [phone] When: Unknown [facility] 01-15-2024 Hospital Discharge instructions Patient Education [...] include: ?8 oz (237 mL) of milk, rlzcavb-urzpmetpblry-dsknw milk, and calcium- fortifiedfruit juice. Calcium-fortified means [...] ?Spinach (cooked), rhubarb, beets, sweet potatoes, and Anguillan chard. ?Peanuts. ?Potato chips, mosotho fries, and baked potatoes with skin on. ?Nuts and nut products. ?Chocolate. If you regularly take a diuretic medicine, make sure to eat at least 1 or 2 servings of fruits or vegetables that are high in potassium each day. These include: ?Avocado. ?Banana. ?Florence, prune, carrot, or tomato juice. ?Baked potato. [...] magnesium, fish oil, or vitamin B6. Take ciro-jey-tsjvtwa and prescription medicines only as told by [...] Casseroles. Pizza. Lasagna. Frozen meals. Potato chips. Bermudian fries. The items listed above may not [...] provider. Document Revised: 10/06/2022 Document Reviewed: 10/06/2022 [employer] Patient Education 2022 [employer]. Follow Up Care 07/13/2023 14:28:20 With:Elizabeth Lott Address: [address] [place] [address] [phone] Business (1) [facility] Lam[place] Morales [address] [address] [phone] Business (1) When: Unknown Comments:Obtain renal US in 6 weeks at [facility]. Office to call with results. If no hydronephrosis, office will call to schedule follow up in 6 months with KUB and renal US [facility]12-27-2023 Miscellaneous Notes* Telephone Encounter - Cristine Rodriguez RN - 07/05/2023 5:30 PM EST Ov 06/19/23 documented in this encounterWooster Community HospitalBebitos12-27-2023 Telephone encounter Note* Telephone Encounter - Cristine Rodriguez RN - 07/05/2023 5:30 PM EST Ov 06/19/[address] [facility] [place] [id number] Hospital Discharge instructions Patient Education 05/10/2023 10:27:19 [...] include: ?8 oz (237 mL) of milk, bcieryd-nsxixikszhef-khmgj milk, and calcium- fortifiedfruit juice. Calcium-fortified means [...] ?Spinach (cooked), rhubarb, beets, sweet potatoes, and Anguillan chard. ?Peanuts. ?Potato chips, mosotho fries, and baked potatoes with skin on. ?Nuts and nut products. ?Chocolate. If you regularly take a diuretic medicine, make sure to eat at least 1 or 2 servings of fruits or vegetables that are high in potassium each day. These include: ?Avocado. ?Banana. ?Florence, prune, carrot, or tomato juice. ?Baked potato. [...] magnesium, fish oil, or vitamin B6. Take ydcq-ukb-wqevtdv and prescription medicines only as told by [...] Casseroles. Pizza. Lasagna. Frozen meals. Potato chips. Bermudian fries. The items listed above may not [...] provider. Document Revised: 03/07/2022 Document Reviewed: 03/07/2022 [employer] Patient Education 2022 [employer]. Follow Up Care 02/01/2023 14:06:36 With:Oren BOB, JOCELYN Temple, URO Address: When: Unknown Comments:Sched Lt ESWL[facility] Evaluation note* Encounter Date Diagnosis Assessment Notes Treatment Notes Treatment Clinical Notes Feb, Hiatal hernia (ICD-10 - K44.9) Pt is taking omeprazole. Pt states this medication is working for her. Pt states she still some times gets acid reflux, but overall, she is doing well. Pt RTO in 6 months Feb, Esophageal stricture (ICD-10 - K22.2) [employer] Other 05-09-2023 Evaluation note* Encounter Date Diagnosis Assessment Notes Treatment Notes Treatment Clinical Notes November, GERD (gastroesophageal reflux disease) (ICD-10 - K21.9) we will obtain a records release to get records from [facility] It is recommened that patient get EGD and she argees to have this done Patient has family history of esophageal cancer November, Family history of esophageal cancer (ICD-10 - Z80.0) [employer] Other Evaluation + Plan note No data available for this section [facility] + Plan note Future Appointments Appointment Date:01/30/2024 08:00:00 AM Scheduled Provider:Albania Chow Location:[facility] Appointment Type:URO Office Visit [facility] evaluation note* Diagnosis Chest pain, unspecified type Dizziness Dizziness and giddiness Abnormal stress ECG Other nonspecific abnormal cardiovascular system function study documented in this encounter [facility] Work Phone: evalpamsux note* Diagnosis Onset Date Resolution Status Hiatal hernia acute [facility] Work Phone: evaluation note* Author Himanshu Borjas Authored January 02, 2024 2:23 pm Patient is positive for dysp epsia, patient notes dysphagia, epigastric pain, globus sensation and daily nausea Patient is also positive for abdominal pain [facility] Work Phone: Evaluation note* Diagnosis Hematuria- Primary Hematuria, unspecified Hematuria, [...] Tobacco use disorder documented in this encounter [facility]* Diagnosis Hiatal hernia- Primary Diaphragmatic hernia without mention of obstruction or gangrene documented in this encounter [facility]* Diagnosis Medication management- Primary documented in this encounter [facility] SystemHistory general Narrative - Reported* Type Description Date Medical History kidney stones Medical History hypertension Medical History gastritis Medical History Hiatal hernia Surgical History kidney stone Surgical History fx nose Surgical History ablasion Surgical History tubal ligation [employer] Other History general Narrative - Reported* Type Description Date Medical History kidney stones Medical History hypertension Medical History gastritis Medical History Hiatal hernia Surgical History kidney stone Surgical History fx nose Surgical History ablasion Surgical History tubal ligation Hospitalization History Heart procedure [employer] Other Hospital Discharge instructions No data available for this section [facility] Hospital Discharge instructionsAmbulatory Orders* Referral to General Surgery Time Frame: 05/30/24, Location: None Selected [facility] Work Phone: InstructionsNot on filedocumented in this encounter [facility] SystemInstructionsNot on filedocumented in this encounter [facility] SystemInstructionsNot on filedocumented in this encounter [facility] SystemInstructionsNot on filedocumented in this encounter [facility] SystemProgress note No data available for this section [facility] Reason for Referral Specialty Diagnoses / Procedures Referred By Contac t Referred To Contact Radiology Diagnoses Chest pain, unspecified type Dizziness Abnormal stress ECG R07.9 (ICD-10-CM) - Chest pain, unspecified type Procedures CTA CORON EJECT FRAC WALL MOTION CHG CT ANGIO HRT CORNRY ART/BYPASS GRFTS CONTRST 3D POST 35319 - CHG CT ANGIO HRT CORNRY ART/BYPASS GRFTS CONTRST 3D POST Chanel Harrell MD [address] [place] [address] Referral ID Status Reason Start Date Expiration Date V isits Requested Visits Authorized [id number] Authorized 06/21/2022 05/07/2023 1 1 Summary Purpose [...] 2024 9:21am GERD (gastroesophageal reflux disease) N ovember 2023 9:21am Chief Complaint Admit Date Diarrhea May [...] hiatal hernia September 10, 2024 3: 00pm Chief Complaint Admit Date 1 month follow up July 30, 2024 3 :30pm 6 week follow up September 10, 2024 3:00 pm Unknown September 20, 2024 3:1 5pm Reason for Visit Admit Date GERD (gastroesophageal reflux disease) J anuary 2024 3:30pm Irritable bowel syndrome with diarrhea J anuary 2024 3:30pm Nausea July 30, 2024 3 :30pm GERD (gastroesophageal reflux disease) [facility] 2024 3:00pm Sliding hiatal hernia September 10, 2024 3: [...] HRT CORNRY ART/BYPASS GRFTS CONTRST 3D POST [id number] - CHG CT ANGIO HRT CORNRY ART/BYPASS GRFTS CONTRST 3D POST Chanel Harrell MD [address] [place] [address] Referral ID Status Reason Start Date Expiration Date V isits Requested Visits Authorized [id number] Authorized 06/21/2022 05/07/2023 1 1 Reason Comments Follow-up EST PT LS 06/19/23 H M. SCHED W/PT Reason Comments Hernia Reason Onset Date Comments Surgical Or Dental Clearance 08/07/2024 Reason Comments Med Refill Care Teams (unrecognized sec tion and content) Communications Programmer Relationship Specialty Start Date End Date Anglim, Nadira, ASSOCIATE ATTORNEY - SEQUINS STRINGER [address] [place], [place] [id number] PCP - General Certified Nurse Practitioner 06/17/22 Team Status: Active Member Role Status Dates Nadira Martínez APRN CARTOGRAPHIC AIDE-C Primary Care Provider Active Team Status: Inactive Member Role Status Dates Nadira Martínez APRN CARTOGRAPHIC AIDE-C Primary Care Provider Active Start: October 26, 2023 End: October 26, 2023 Himanshu Borjas APRN Attending Provider Active Start: October 26, 2023 End: October 26, 2023 Team Status: Inactive Member Role Status Dates Nadira Martínez APRN CARTOGRAPHIC AIDE-C Primary Care Provider Active Start: November 14, 2023 End: November 14, 2023 Himanshu Borjas APRN Attending Provider Active Start: November 14, 2023 End: November 14, 2023 Team Status: Inactive Member Role Status Dates Nadira Martínez APRN CARTOGRAPHIC AIDE-C Primary Care Provider Active Start: January 02, 2024 End: January 02, 2024 Himanshu Borjas APRN Attending Provider Active Start: January 02, 2024 End: January 02, 2024 Team Status: Inactive Member Role Status Dates Nadira Martínez APRN CARTOGRAPHIC AIDE-C Primary Care Provider Active Start: January 16, 2024 End: January 16, 2024 Himanshu Borjas APRN Attending Provider Active Start: January 16, 2024 End: January 16, 2024 Team Status: Inactive Member Role Status Dates Nadira Martínez APRN CARTOGRAPHIC AIDE-C Primary Care Provider Active Start: March 05, 2024 End: March 05, 2024 Himanshu Borjas APRN Attending Provider Active Start: March 05, 2024 End: March 05, 2024 Team Status: Inactive Member Role Status Dates Nadira Martínez APRN CARTOGRAPHIC AIDE-C Primary Care Provider Active Start: May 30, 2024 End: May 30, 2024 Himanshu Borjas APRN Attending Provider Active Start: May 30, 2024 End: May 30, 2024 Communications Programmer Relationship Specialty Start Date End Date Rafael Garrison MD [facility] [place] [phone] PCP - General Internal Medicine 10/03/14 Himanshu Borjas CNP [address] [place] [id number] Family Medicine 01/10/24 Communications Programmer Relationship Specialty Start Date End Date Nadira Martínez APRN-SEQUINS STRINGER [address] [place], [place] [phone] PCP - General Family Medicine 11/23/20 Communications Programmer Relationship Specialty Start Date End Date [facility] [address] [place], [place] PCP - General Family Medicine 07/01/24 [...] July 30, 2024 End: July 30, 2024 Communications Programmer Relationship Specialty Start Date End Date Rafael Garrison MD [address] [place] [address] [place] [address] PCP - General Internal Medicine 10/03/14 Himanshu Borjas CNP [address] [place] [id number] Family Medicine 01/10/24 Communications Programmer Relationship Specialty Start Date End Date [facility] [address] [place], [place] PCP - General Family Medicine 07/01/24 Communications Programmer Relationship Specialty Start Date End Date Nadira MartínezRISA-SEQUINS STRINGER [address] [place] [address] PCP - General Family Medicine 11/23/20 Communications Programmer Relationship Specialty Start Date End Date Nadira Martínez ASSOCIATE ATTORNEY-SEQUINS STRINGER [address] [place] [address] PCP - General Family Medicine 11/23/20 Team Status: Inactive Member Role Status Dates NON STAFF Primary Care Provider Active Start: September 10, 2024 End: September 10, 2024 Himanshu Borjas APRN Attending Provider Active Start: September 10, 2024 End: September 10, 2024 Team Status: Inactive Member Role Status Dates Elizabeth Lott MD Attending Provider Active Start : September 20, 2024 End: September 20, 2024 INFORMATION SOURCE (unrecogn ized section and content) DATE CREATED AUTHOR 06/30/2022 [facility] DATE CREATED AUTHOR AUTHOR'S ORGANIZ ATION 10/06/2022 [facility] DATE CREATED AUTHOR AUTHOR'S ORGANIZ ATION 01/23/2023 [facility] DATE CREATED AUTHOR AUTHOR'S ORGANIZ ATION 07/03/2024 [facility] DATE CREATED AUTHOR AUTHOR'S ORGANIZ ATION 08/07/2024 [facility] DATE CREATED AUTHOR AUTHOR'S ORGANIZ ATION 08/29/2024 [facility] DATE CREATED AUTHOR AUTHOR'S ORGANIZ ATION 09/24/2024 [facility]sician [facility] Goals (unrecognized section and content) Goals may be documented in a n alternate section Source Comments (unrecognize d section and content) In the event this informatio n is protected by the Federal Confidentiality of Alcohol and Drug Abuse Patient Records regulations: The Federal rules restrict any use of the information to criminally investigate or prosecute any alcohol or drug abuse patient.[facility] the event this information is protected by the Federal Confidentiality of Alcohol and Drug Abuse Patient Records regulations: The Federal rules restrict any use of the information to criminally investigate or prosecute any alcohol or drug abuse patient.[facility] FOR RECORDS PERTAINING TO PATIENTS WHO ARE [...] BE BASED ON THE PRIMARY CLINICAL RECORDS. [facility] [email or web address] [facility]. provides no warranty or guarantee of the accuracy or completeness of information in this document.
== END 2024-09-27 09:00 | disposition home or self-care (01) ==
LOC: CARD 08:59
PROVIDERS: Visit Provider Urology
DX: Z01.810 Encounter for preprocedural cardiovascular examination (principal); N20.0 Calculus of kidney
CPT/HCPCS: 93005

== ENCOUNTER 2024-10-02 11:35 | Day surgery (SDC) | payer MEDICARE, SELFPAY ==
[2024-09-20 15:19] VITALS: BP 126/80; PULSE 68; TEMP 36.3; O2SAT 97; BMI 22.9
[2024-10-02] VITALS (13 sets, daily range): BP systolic 108–170; BP diastolic 62–81; PULSE 57–73; TEMP 36.2–36.6; O2SAT 90–99; BMI 22.9
--- NOTE | 2024-10-02 11:48 | XR_ITS ---
The [place] [id number] Patient Name: SLY COY MRN: [id number] date: 1955 Sex: F Assigned Patient Location: [facility] Current Patient Location: [facility] Accession/Order Number: [id number] Exam Date: 10/02/2024 15:27 Report Date: 10/02/2024 15:28 At the request of: LIYAH DENNY MD Procedure: XR abdomen 1V KUB: CLINICAL INFORMATION: Kidney stones COMPARISON: KUB report 05/05/2024 FINDINGS: Subtle punctate bilateral nephrolithiasis. Overlying bowel gas limits the evaluation of the right kidney. No bowel obstruction or free air. XR/XR abdomen 1V IMPRESSION: SUBTLE PUNCTATE BILATERAL NEPHROLITHIASIS. Impression dictated by: Dallas Lowe Jr. DGiselleOGiselle10/02/2024 3:28 PM Dictation Location: [place] [address] Electronically authenticated by: [id number] Y Date: 10/02/2024 15:28
[2024-10-02] MEDS: LACTATED RINGER'S SOLUTION 1,000 ML 50 ML IV (12:27)
[2024-10-02] MEDS: CEFAZOLIN SODIUM 2 GM/50 ML D5W PREMIX IV (14:29)
--- NOTE | 2024-10-02 15:08 | PM.URSON ---
Urology Surgery Operative Note Operative Note Procedure Date: 10/02/24 Time Out Performed: yes Pre-op Diagnosis: Right kidney stone Post-op Diagnosis: same as pre-op Procedures performed: Right extracorporeal shockwave lithotripsy Anesthesia: General-LMA Primary Surgeon: Elizabeth Lott Complications: none Estimated blood loss (mL): 0 Findings: Radiopaque 7 mm right lower pole stone underwent uncomplicated ESWL Specimens: none Indications for Procedures: The patient was evaluated in clinic and deemed a candidate for right extracorporeal shock wave lithotripsy for 7 mm right lower pole stone. Risks were discussed to include but not limited to bleeding, pain, infection, damage to surrounding structures, inability to treat the stone, residual fragments, obstruction and need for additional procedures. Detailed description of Procedure: After informed consent was obtained, the patient was brought to the operating room and placed on the lithotripsy bed in supine position. Sequential compression devices were placed on bilateral lower extremities. The patient received the appropriate dose of preoperative IV antibiotics and general anesthesia was induced. An operative time out was performed confirming the patient's identity, procedure, laterality and safety checks. The patient was positioned with the Siemens Modularis Lithostar lithotripter head on the right flank. The stone was triangulated using fluoroscopy. A total of 3000 shocks were provided and the stone was seen to fragment well. It was no longer visualized. The procedure was concluded and patient was awakened from anesthesia in stable condition. The patient tolerated the procedure well without complications. Plan: Discharge home with tamsulosin. Follow up in 4 weeks with KUB and renal US.
--- NOTE | 2024-10-02 16:25 | PC.NURSE ---
Denies urge to void
--- NOTE | 2024-10-02 16:50 | PC.NURSE ---
Small bruise right flank
--- NOTE | 2024-10-02 16:52 | PC.NURSE ---
Up to bathroom and voided red tinged urine without clots
== END 2024-10-02 16:54 | disposition home or self-care (01) ==
PROVIDERS: Visit Provider Urology
PROC: (CPT 50590; principal; 2024-10-02 13:05)
DX: N20.0 Calculus of kidney (principal); Z95.5 Presence of coronary angioplasty implant and graft; Z90.710 Acquired absence of both cervix and uterus; I25.10 Atherosclerotic heart disease of native coronary artery without angina pectoris; Z98.51 Tubal ligation status; F17.210 Nicotine dependence, cigarettes, uncomplicated; E78.5 Hyperlipidemia, unspecified; I10 Essential (primary) hypertension; K21.9 Gastro-esophageal reflux disease without esophagitis
CPT/HCPCS: 50590; 36415; 74018; J0690; J1100; J2250; J2405; J2704; J3010

== ENCOUNTER 2024-10-15 15:01 | Outpatient (OUT) | payer MEDICARE, SELFPAY ==
--- NOTE | 2024-10-15 15:05 | XR_ITS ---
[address] [address] Patient Name: SLY COY MRN: [id number] date: 1955 Sex: F Assigned Patient Location: [place] Current Patient Location: [place] Accession/Order Number: [id number] Exam Date: 10/15/2024 15:35 Report Date: 10/15/2024 15:39 At the request of: SHIRA LIANG Procedure: XR abdomen 1V Single view of abdomen COMPARISON: CT of abdomen and pelvis 11/22/2023 HISTORY: Kidney stones. Right flank pain. THORAX: Lung bases unremarkable. FREE AIR: Supine position limits assessment BOWEL: No gaseous intestinal distention. STOOL: Moderate constipation RENAL STONES: Left nephrolithiasis measuring up to 4 mm. No bladder or ureteral stone seen. VASCULAR CALCIFICATIONS: Unremarkable SOFT TISSUE: Unremarkable BONES: Unremarkable POSTSURGICAL CHANGES: None XR/XR abdomen 1V IMPRESSION: Left nephrolithiasis. Impression dictated by: Deepak Acosta M.D.10/15/2024 3:39 PM Dictation Location: [place] [address] Electronically authenticated by: [id number] Y Date: 10/15/2024 15:39
--- NOTE | 2024-10-15 15:05 | US_ITS ---
The [address] [address] Patient Name: SLY COY MRN: [id number] date: 1955 Sex: F Assigned Patient Location: [place] Current Patient Location: [place] Accession/Order Number: [id number] Exam Date: 10/15/2024 15:30 Report Date: 10/15/2024 15:35 At the request of: SHIRA LIANG Procedure: US renal BI Bilateral Renal Ultrasound HISTORY: History of kidney stones. Right flank pain. History of multiple lithotripsies. COMPARISON: 04/30/2024 RIGHT kidney measures 10.0 cm. LEFT kidney measures 9.9 cm. Hydronephrosis: None RENAL STONE: Largest right stone inferior pole measures up to 10 mm. Echogenic focus of midportion of left kidney measures up to 15 mm. RENAL LESIONS: Anechoic 2.1 cm superior pole right renal cyst with septation and echogenic foci identified. Suggest mildly complex cyst. URINARY BLADDER: Unremarkable REPRODUCTIVE STRUCTURES Not assessed IMPRESSION : No hydronephrosis. Bilateral nephrolithiasis as described above. Similar Mildly complex right renal cyst likely benign. Impression dictated by: Deepak Acosta M.D.10/15/2024 3:35 PM Dictation Location: [place] [address] Electronically authenticated by: [id number] Y Date: 10/15/2024 15:35
== END 2024-10-15 15:02 | disposition home or self-care (01) ==
LOC: US 15:01
PROVIDERS: Visit Provider Student in an Organized Health Care Education/Training Program
DX: N20.0 Calculus of kidney (principal); N28.1 Cyst of kidney, acquired
CPT/HCPCS: 74018; 76775

== ENCOUNTER 2024-10-22 11:46 | Emergency (ER) | payer MEDICARE, SELFPAY ==
[2024-10-22 11:52] VITALS: BP 137/71; PULSE 77; TEMP 36.5; O2SAT 99; BMI 23.0
--- OUTSIDE RECORDS SUMMARY | 2024-10-22 12:00 | XMS_ITS | CCD ---
Author Organization [facility] Care Team Providers Care Pond Worker Name Role Phone Nadira Modi APRN, CNP Primary Care Provider CHANEL HARRELL Referring Unavailable NADIRA MARTÍNEZ Primary Care Unavailable [facility] Care Unava ilable JUANITA, MIKHAIL Consulting Unavailable JUANITA, MIKHAIL Admitting Unavailable JUANITAGABRIELLAYL Attending Unavailable ANGLIM, NADIRA Admitting Unavailable ANGNADIRA URRUTIA Attending Unavailable [facility] Care Unava ilable MARILYNN, NADIRA Consulting Unavailable Himanshu Borjas Unavailable LOS LEE Admitting Unavailable AURORALOS OLIVARES Attending Unavailable AURORALOS OLIVARES Referring Unavailable NADIRA MARTÍNEZ Primary Care Unavailable NADIRA MARTÍNEZ Primary Care Physician RISA Martínez Primary Care Provider RISA Borjas Attending Provider RISA Martínez Primary Care Provider RISA Borjas Attending Provider Rafael Garrison MD Primary Care Provider [phone] Himanshu Borjas CNP Unavailable Nadira Perdue Primary [facility] Provider [facility] Primary Care Provider NADIRA MARTÍNEZ Referring Unavailable NADIRA MARTÍNEZ Primary Care Unavailable JOEY BOLDEN Attending Unavailable NADIRA MARTÍNEZ Referring Unavailable [facility] Primary Care Unava ilable NON STAFF Primary Care Provider UnavailHimanshu Villa APRN Attending Provider FERNANDO CASTELLON Referring Unavailable MICAELA MONROY Attending Unavailable RAFAEL GARRISON Primary Care Unavailable Elizabeth Lott MD Attending Provider [phone] Himanshu Borjas Admitting Unavailable Himanshu Borjas Attending Unavailable Anglim, Nadira Primary Care Unavailable ScHimanshu jim Admitting Unavailable ScHimanshu jim Attending Unavailable Anglim, Nadira Primary Care Unavailable Himanshu Borjas Attending Unavailable NON STAFF Primary Care Unavailable Himanshu Borjas Admitting Unavailable Elizabeth Lott Admitting Unavailable Elizabeth Lott Attending Unavailable [place]ia Toney Attending Unavailable JASMIN BHANDARI Attending Unavail able JASMIN BHANDARI Attending Unavail able Elizabeth Lott Attending Unavailable Elizabeth Lott Attending Unavailable Elizabeth Lott Referring Unavailable Elizabeth Lott Attending Unavailable Elizabeth Lott Attending Unavailable Venita Gibson Attending Unavailable Allergies Allergy Classification Reported Allergen(s) Allergy Type Date of Onset Reaction(s) Facility (1 source) No Known Medication Allergies; Translations: [No Known Medication Allergies] Propensity to adverse reactions (disorder) [facility] Repository Medications Current Medications Medication Drug [...] hr tablet Indications: 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) , [...] 02, 2024 2:15pm take 1 capsule by [facility] twice daily Omeprazole 20 MG 1 capsule [...] Coronary arteriosclerosis; Translations: [Atherosclerotic heart disease of gakona coronary artery with other forms of angina [...] 3 Episodic Other aftercare (1 source) 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; Translations: [OTH JAIL CURRENT DRUG THERAPY] Onset: 3 Episodic Other aftercare (4 sources) Long-term current use of anticoagulant; Translations: [USP (current) use of anticoagulants] Onset: 5 Episodic Other aftercare (1 source) Long-term current use of drug therapy; Translations: [terminal supervisor (current) use of antithrombotics/antipl atelets] Onset: 5 [...] Cough, unspecified; Translations: [Cough, unspecified] Onset: 4 Urinary tract infections (7 sources) Urinary tract [...] (1 source) Patient encounter status; Translations: [Other shelter (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 therapy] 02-01-2024 Episodic Other diseases [...] bacterial skin contaminants 2 Days PERFORMED BY: [place] [id number] PATHOLOGIST FINANCIAL RESERVE CLERK NAKIA Hernandez [facility] Comment on above: Performed By: #### C UU #### [place] [id number] [facility] Ambulatory Visit Summaryon 0 08-27-2024 Ambulatory Visit [...] or breast (more content not included)... Normal [facility] Urology Office/Clinic Noteon 08-27-2024 Urology Office/Clinic [...] with voice recognition artificial intelligence software, specifically [employer] and or [email or web address]. Substitutions may have occurred due to the inherent limitations of voice recognition and artificial intelligence software. 1. Female bladder prolapse (N81.10: Cystocele, unspecified) S/p vaginal hysterectomy 2019. Still has ovaries. S/p bladder sling with mesh. Unsure of date. 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 Antiplatelet or antithrombotic long-term use (Z79.02: USP (current) use of antithrombotics/anti platelets) Plavix. Has a heart stent. Elevated risk of periop complications. 5. Smoker (F17.200: Nicotine dependence, unspecified, uncomplicated) Pt states she has been cutting back. Pt states I'm trying . Cessation encouraged. Patient presents with a stage III anterior prolapse. I discussed surgical options including transvaginal repair with gakona tissue, abdominal sacrocolpopexy and patient opts for the latter. She was counseled on the risk, benefits, alternatives and she would like to proceed. I discussed with her in detail about the surgery, side effect profile and patient communicated full understanding. Will schedule the surgery for October. With 1 night hospital stay. Follow-up With When Contact Information THONY BOB, JASMIN, JOCELYN Additional Instructions: Schedule robotic-assisted sacrocolpopexy in October Patient Education Steps to Quit Smoking How to Use a Vaginal Pessary ISary, personally scribed for Dr. Bess on 08/27/2024 14:17:35. . Documentation recorded by the Sary anaya accurat (more content not included)... Normal [facility] Comment on above: Result Comment: Elec tronically Signed By: JASMIN BHANDARI MD\.br\Date and Time Signed: 08/27/24 14:39 EST\.br\Electronically Co-Signed By: Sary Navarro\.br\Date and Time Co-Signed: 08/27/24 14:18 EST Patient Letter FTon 2024 Patient Letter [facility] Patient Letter [facility] August 13, 2024 SLY CO[address] [place] [address] : 1955 Dear _ , You missed [...] select option 3. Sincerely, [facility] [address] [place] [address] CNOVon 08-05-2024 [facility] Office Visit ([facility]) SLY COY ([id number]) 1955 F Date Time Provider Department 08/05/24 11:00 AM MICAELA MONROY [facility] During your visit today, we [...] with more than 50% of the total [id number]-[id number] time of the visit in counseling / coordination of care. Referring Provider: FERNANDO CASTELLON [[id number]] Allergies As of Date: 08/05/2024 (No Known Allergies) Date Reviewed: 08/05/2024 Reviewed by: Aura Evans, OCCA - Fully Assessed Reason for Visit: [...] Status:Closed by MICAELA MONROY on 08/05/24 Normal [facility] Urology Office/Clinic Noteon 07-24-2024 Urology Office/Clinic [...] 08/08/[address] AP w con 01/16/24 [facility]. KUB/RAFAEL 04/30/24 [facility]. [...] signs involv (more content not included)... Normal [facility] Comment on above: Result Comment: Elec tronically Signed By: Elizabeth Lott MD\.br\Date and Time Signed: 07/24/24 10:06 EST\.br\Electronically Co-Signed By: Shahana Mazariegos.br\Date and Time Co-Signed: 07/24/24 09:51 EST POCT EKGOrdered By: Clover Wyman on [facility]-2024 [facility] SLY COY ([id number]) 1955 F Date Time Provider Department 05/31/24 MICAELA MONROY [facility] During your visit today, we recorded the following information about you: Compa Tavares 05/31/2024 4:04 PM Addendum For documentation purpose- Left a detail message for the patient to schedule an appointment with Dr. Monroy (40 mins slot). Referral from [facility]. Thank you Allergies As of Date: 05/31/2024 [...] Status:Closed by COMPA TAVARES on 05/31/24 Normal [facility] Campy coli+jejuni BD MaxOrde red By: Himanshu Borjas on 05-31-2024 C. coli+jejuni tuf gene DOMONIQUE+probe Ql (Stl) Campy coli+jejuni BD Max Negative [facility] Comment on above: Campylobacter test i ncludes C. jejuni and C. coli. Clostridioides difficile tox in B tcdB gene [Presence] in Stool by DOMONIQUE with probe deteOrdered By: Himanshu Borjas on 05-31-2024 C. difficile toxin B tcdB gene DOMONIQUE+probe Ql (Stl) Clostridioides difficile toxin B tcdB gene [Presence] in Stool by DOMONIQUE with probe dete Negative [facility] Comment on above: Testing performed by RT-PCR Clostridium Difficileon 05-11 Clostridium Difficile Negative Normal Negative [facility] Comment on above: Result Comment: Test ing performed by RT-PCR PERFORMED BY: [place] [address] PATHOLOGIST FINANCIAL RESERVE CLERK NAKIA RUBIN M.D. Performed By: #### G IARDIA, STCYRPTOAG #### [facility] , #### ENT BACT PANEL, OVP, CDT #### [facility] [address] [place] [address] Cryptosporidium Antigen Stoo danny 05-31-2024 Cryptosporidium Antigen Stool Negative Normal Negative [facility] Comment on above: Performed By: #### G IARDIA, STCYRPTOAG #### [facility] , #### ENT BACT PANEL, OVP, CDT #### [facility] [address] [place] [address] Cryptosporidium parv+homin B D MaxOrdered By: Himanshu Borjas on 05-31-2024 C. parvum+hominis DNA DOMONIQUE+probe Ql (Stl) Cryptosporidium parv+homin BD Max Negative [facility] Comment on above: Cryptosporidium test includes C. hominis and C. parvum. Cryptosporidium sp Ag [Prese nce] in Stool by ImmunoassayOrdered By: Himanshu Borjas on 05-31-2024 Cryptosporidium sp Ag IA Ql (Stl) Cryptosporidium sp Ag [Presence] in Stool by Immunoassay Negative [facility] Entamoeba histolytica BD Max Ordered By: Himanshu Borjas on 05-31-2024 E. histolytica DNA DOMONIQUE+probe Ql (Stl) Entamoeba histolytica BD Max Negative [facility] Comment on above: Testing performed by RT-PCR Giardia Lamblia Ag EIA Stool on 05-31-2024 Giardia Lamblia Ag EIA Stool Negative Normal Negative [facility] Comment on above: Result Comment: Perf ormed at: CB - [facility] [place] [address] Software Support Representative: Nehemias Pollard PhD, Phone: [phone] PERFORMED BY: [place] [address] PATHOLOGIST FINANCIAL RESERVE CLERK NAKIA RUBIN M.D. Performed By: #### G IABAUDILIOIA STCYRPTOAG #### [facility] , #### ENT BACT PANEL, OVP, CDT #### [address] Giardia sidhu BD MaxOrdered By : Himanshu Borjas on 05-31-2024 G. lamblia DNA DOMONIQUE+probe Ql (Stl) Giardia sidhu BD Max Negative [facility] Giardia lamblia Ag [Presence ] in Stool by ImmunoassayOrdered By: Himanshu Borjas on 05-31-2024 G. lamblia Ag IA Ql (Stl) Giardia lamblia Ag [Presence] in Stool by Immunoassay Negative [facility] Comment on above: Performed at: - [facility] [address] [id number] Director: Nehemias Pollard PhD, Phone: [phone] Ova and Parasite Panelon Cryptosporidium (C.hominis+par Negative Normal Negative [facility] Comment on above: Result Comment: Cryp tosporidium test includes C. hominis and C. parvum. Performed By: #### G IARDIA, STCYRPTOAG #### [facility] , #### ENT BACT PANEL, OVP, CDT #### [facility] [address] [place] [address] Entamoeba histolytica Negative Normal Negative [facility] Comment on above: Result Comment: Test ing performed by RT-PCR PERFORMED BY: [place] [address] PATHOLOGIST FINANCIAL RESERVE CLERK NAKIA RUBIN M.D. Performed By: #### G IARDIA, STCYRPTOAG #### [facility] , #### ENT BACT PANEL, OVP, CDT #### [facility] [address] [place] [address] Giardia lamblia Negative Normal Negative [facility] Comment on above: Performed By: #### G IARDIA, STCYRPTOAG #### [facility] , #### ENT BACT PANEL, OVP, CDT #### [facility] [address] [place] [address] Salmonellosis BD MaxOrdered By: Himanshu Borjas on 05-31-2024 Salmonella sp spaO gene DOMONIQUE+probe Ql (Stl) Salmonella sp spaO gene [Presence] in Stool by DOMONIQUE with probe detection Negative [facility] Comment on above: Testing performed by RT-PCR Shigella Tox 1+2 BD MaxOrder ed By: Himanshu Borjas on 05-31-2024 E. coli stx1+stx2 genes DOMONIQUE+probe Ql (Stl) Escherichia coli Stx1 and Stx2 toxin stx1+stx2 genes [Presence] in Stool by DOMONIQUE with Negative [facility] Shigellosis BD MaxOrdered By : Himanshu Borjas on 05-31-2024 Shigella species+EIEC invasion plasmid antigen H ipaH gene DOMONIQUE+probe Ql (Stl) Shigella species+EIEC invasion plasmid antigen H ipaH gene [Presence] in Stool by DOMONIQUE Negative [facility] Comment on above: Shigella sp. test in cludes Shigella species and Enteroinvasive E. coli (EIEC). Stool Bacterial Panelon 05-11 Campylobacter Negative Normal Negative [facility] Comment on above: Result Comment: Camp ylobacter test includes C. jejuni and C. coli. Performed By: #### G IARDIA, STCYRPTOAG #### [facility] , #### ENT BACT PANEL, OVP, CDT #### [address] Salmonella Species Negative Normal Negative [facility] Comment on above: Result Comment: Test ing performed by RT-PCR PERFORMED BY: [place] [address] PATHOLOGIST FINANCIAL RESERVE CLERK NAKIA RUBIN M.D. Performed By: #### G IARDIA, STCYRPTOAG #### [facility] , #### ENT BACT PANEL, OVP, CDT #### [address] Shiga Toxin (E coli O157+oth) Negative Normal Negative [facility] Comment on above: Performed By: #### G IARDIA, STCYRPTOAG #### [facility] , #### ENT BACT PANEL, OVP, CDT #### [address] Shigella Species Negative Normal Negative [facility] Comment on above: Result Comment: Shig rylie sp. test includes Shigella species and Enteroinvasive E. coli (EIEC). Performed By: #### G IARDIA, STCYRPTOAG #### [facility] , #### ENT BACT PANEL, OVP, CDT #### [address] abdomen pelvis w conon CT abdomen pelvis w [facility] [place] [address] CT Scan Report Signed Patient: Sly Coy MR#: [id number] : 1955 Acct:[id number] Age/Sex: 68 / F ADM Date: 01/16/24 Loc: CT Room: Type: [facility] Attending Dr: Himanshu Borjas APRN Copies to: [...] Lowe Jr., D.O.01/16/2024 5:44 PM Dictation Location: [place] [address] Transcribed By: [facility] 01/16/241743 Dictated By: Dallas Lowe Jr, DO 01/16/241741 Signed By: 01/16/241743 Normal [facility] Creatinineon 01-16-2024 GFR/1.73 sq M.predicted MDRD (S/P/Bld) [Vol rate/Area] mL/min/{1.73_m2} Normal [facility] Comment on above: Result Comment: PERF ORMED BY: [address] [place] [address] PATHOLOGIST FINANCIAL RESERVE CLERK TONY WONG M.D. Performed By: #### C RESHERRILL BUN #### [facility] [address] [place] [address] Creatinine [Mass/volume] in Serum or PlasmaOrdered By: Himanshu Borjas on 01-16-2024 Creatinine [Mass/Vol] 0.84 mg/dL Normal 0.60-1.20 [facility] Comment on above: Performed By: #### C RESHERRILL BUN #### [facility] [address] [place] [address] No Panel InformationOrdered By: Himanshu Borjas on 01-16-2024 Estimated GFR (CKD-EPI) > 60.0 mL/Min [facility] Creatinine Clearance (Chem N/A [facility] Urea nitrogen [Mass/volume] in Serum or PlasmaOrdered By: Himanshu Borjas on 01-16-2024 Urea nitrogen [Mass/Vol] 15 mg/dL Normal 7-25 [facility] Comment on above: Performed By: #### C REAT, BUN #### [address] MAMM SCREENING BILATERAL W C objective c developer 12-11-2023 MAMM SCREENING BILATERAL W CAD MAMM [...] 1 b MAMM 1 YR Normal [facility] [place] esophaguson 11-14-2023 [place] esophagus [facility] Main [place] [address] [place], [place] [id number] Fluoroscopy Report Signed Patient: Sly Coy MR#: [id number] : 1955 Acct:[id number] Age/Sex: 68 / F ADM Date: 11/14/23 Loc: XD Room: Type: [facility] Attending Dr: Himanshu Borjas APRN Copies to: [...] Arnoldo Souza M.D.11/14/2023 2:00 PM Dictation Location: [place] [address] Transcribed By: [facility] 11/14/23 1400 Dictated By: Arnoldo Souza II, MD 11/14/23 1356 Signed By: 11/14/23 1400 Normal [facility] Basic Metabolic Profon 01-23 Anion gap [Moles/Vol] 10 mmol/L Normal 9-17 [facility] Comment on above: Performed By: #### B GAL, CBC #### [facility] [address] [facility]. [place], [place] [id number] Software Support Representative: Brooks Almazan MD BUN/CRE Ratio 30 High 9-20 [facility] Comment on above: Performed By: #### B MP, CBC #### [facility] [address] [facility] [place], [place] [id number] Software Support Representative: Brooks Almazan MD Calcium [Mass/Vol] 8.9 mg/dL Normal 8.6-10.4 [facility] Comment on above: Performed By: #### B MP, CBC #### [facility] [address] [place] [address] Software Support Representative: Brooks Almazan MD Chloride [Moles/Vol] 104 mmol/L Normal 98-107 [facility] Comment on above: Performed By: #### B MP, CBC #### [facility] [address] [place] [address] Software Support Representative: Brooks Almazan MD CO2 [Moles/Vol] 27 mmol/L Normal 20-31 [facility] Comment on above: Performed By: #### B MP, CBC #### [facility] [address] [place] [address] Software Support Representative: Brooks Almazan MD Creatinine [Mass/Vol] 0.5 mg/dL Normal 0.5-0.9 [facility] Comment on above: Performed By: #### B MP, CBC #### [facility] [address] [facility] [place] [address] Software Support Representative: Brooks Almazan MD GFR/1.73 sq M.predicted among non-blacks MDRD (S/P/Bld) [Vol rate/Area] mL/min/{1.73_m2} Normal >60 [facility] Comment on above: Result Comment: These results [...] Performed By: #### B MP, CBC #### [facility] [address] [place], [place] [address] Software Support Representative: Brooks Almazan MD Glucose [Mass/Vol] 97 mg/dL Normal 70-99 [facility] Comment on above: Performed By: #### B MP, CBC #### [facility] [address] [place] [address] Software Support Representative: Brooks Almazan MD Potassium [Moles/Vol] 4.8 mmol/L Normal 3.7-5.3 [facility] Comment on above: Result Comment: SPEC IMEN SLIGHTLY HEMOLYZED, RESULTS MAY BE ADVERSELY AFFECTED. Performed By: #### B MP, CBC #### [facility] [address] [place] [address] Software Support Representative: Brooks Almazan MD Sodium [Moles/Vol] 141 mmol/L Normal 135-144 [facility] Comment on above: Performed By: #### B MP, CBC #### [facility] [address] [place] [address] Software Support Representative: Brooks Almazan MD Urea nitrogen [Mass/Vol] 15 mg/dL Normal 8-23 [facility] Comment on above: Performed By: #### B MP, CBC #### [facility] [address] [place] [address] Software Support Representative: Brooks Almazan MD CBCon 01-23-2023 Erythrocyte distribution width (RBC) [Ratio] 12.4 % Normal 11.8-14.4 [facility] Comment on above: Performed By: #### B MP, CBC #### [facility] [address] [facility] [place] [address] Software Support Representative: Brooks Almazan MD Hematocrit (Bld) [Volume fraction] 40.3 % Normal 36.3-47.1 [facility] Comment on above: Performed By: #### B MP, CBC #### [facility] [address] [place] [address] Software Support Representative: Brooks Almazan MD Hemoglobin (Bld) [Mass/Vol] 13.1 g/dL Normal 11.9-15.1 [facility] Comment on above: Performed By: #### B MP, CBC #### [facility] [address] [facility] [place] [address] Software Support Representative: Brooks Almazan MD MCH (RBC) [Entitic mass] 30.0 pg Normal 25.2-33.5 [facility] Comment on above: Performed By: #### B MP, CBC #### [facility] [address] [place] [address] Software Support Representative: Brooks Almazan MD MCHC (RBC) [Mass/Vol] 32.5 g/dL Normal 28.4-34.8 [facility] Comment on above: Performed By: #### B MP, CBC #### [facility] [address] [place] [address]. [place] [address] Software Support Representative: Brooks Almazan MD MCV (RBC) [Entitic vol] 92.4 fL Normal 82.6-102.9 [facility] Comment on above: Performed By: #### B MP, CBC #### [facility] [address] [place] [address]. [place] [address] Software Support Representative: Brooks Almazan MD NRBC Automated 0.0 per 100 WBC Normal 0.0 [facility] Comment on above: Performed By: #### B MP, CBC #### [facility] [address] [place] [address]. [place] [address] Software Support Representative: Brooks Almazan MD Platelet mean volume (Bld) [Entitic vol] 9.3 fL Normal 8.1-13.5 [facility] Comment on above: Performed By: #### B MP, CBC #### [facility] [address] [facility] [place] [address] Software Support Representative: Brooks Almazan MD Platelets (Bld) [#/Vol] 234 10*3/uL Normal 138-453 [facility] Comment on above: Performed By: #### B MP, CBC #### [facility] [address] [place] [address] Software Support Representative: Brooks Almazan MD RBC (Bld) [#/Vol] 4.36 10*6/uL Normal 3.95-5.11 [facility] Comment on above: Performed By: #### B MP, CBC #### [facility] [address] [place] [address] Software Support Representative: Brooks Almazan MD WBC (Bld) [#/Vol] 7.1 10*3/uL Normal 3.5-11.3 [facility] Comment on above: Performed By: #### B MP, CBC #### [facility] [address] [place] [address] Software Support Representative: Brooks Almazan MD CBC AUTO DIFFon 11-27-2021 BASO # 0.1 103/ul Normal 0.0-0.1 [facility] Comment on above: Performed By: #### C BC #### [facility] [address] [place] [address] Dr. Liliam Sanderson Basophils/100 WBC (Bld) 0.7 % Normal 0.2-2.0 [facility] Comment on above: Performed By: #### C BC #### [facility] [address] [place] [address] Dr. Liliam Sanderson EO # 0.2 103/ul Normal 0.0-0.7 [facility] Comment on above: Performed By: #### C BC #### [facility] [address] [place] [address] Dr. Liliam Sanderson Eosinophils/100 WBC (Bld) 2.2 % Normal 0.9-7.0 [facility] Comment on above: Performed By: #### C BC #### [facility] [address] [place] [address] Dr. Liliam Sanderson Erythrocyte distribution width (RBC) [Ratio] 12.0 % Normal 11.0-15.0 [facility] Comment on above: Performed By: #### C BC #### [facility] [address] [place] [address] Dr. Liliam Sanderson Hematocrit (Bld) [Volume fraction] 40.6 % Normal 36.0-48.0 [facility] Comment on above: Performed By: #### C BC #### [facility] [address] [place] [address] Dr. Liliam Sanderson Hemoglobin (Bld) [Mass/Vol] 13.3 g/dL Normal 12.0-16.0 [facility] Comment on above: Performed By: #### C BC #### [facility] [address] [place] [address] Dr. Liliam Sanderson IG # 0.03 10e3/ul Normal 0.00-0.03 [facility] Comment on above: Performed By: #### C BC #### [facility] [address] [place] [address] Dr. Liliam Sanderson IG % 0.3 % Normal 0.0-0.5 [facility] Comment on above: Performed By: #### C BC #### [facility] [address] [place] [address] Dr. Liliam Sanderson LYMPH # 3.2 103/ul Normal 1.2-3.8 [facility] Comment on above: Performed By: #### C BC #### [facility] [address] [place] [address] Dr. Liliam Sanderson Lymphocytes/100 WBC (Bld) 30.7 % Normal 20.5-60.0 [facility] Comment on above: Performed By: #### C BC #### [facility] [address] [place] [address] Dr. Liliam Sanderson MANUAL DIFF REQ NO Normal [facility] Comment on above: Performed By: #### C BC #### [facility] [address] [address] [address] Liliam Sanderson MCH (RBC) [Entitic mass] 30.2 pg Normal 26.7-34.0 [facility] Comment on above: Performed By: #### C BC #### [facility] [address] [place] [address] Dr. Liliam Sanderson MCHC (RBC) [Mass/Vol] 32.8 g/dL Normal 29.9-35.2 [facility] Comment on above: Performed By: #### C BC #### [facility] [address] [place] [address] Dr. Liliam Sanderson MCV (RBC) [Entitic vol] 92.1 fL Normal 81.0-99.0 [facility] Comment on above: Performed By: #### C BC #### [facility] [address] [place] [address] Dr. Liliam Sanderson MONO # 0.8 103/ul Normal 0.3-0.8 [facility] Comment on above: Performed By: #### C BC #### [facility] [address] [place] [address] Dr. Liliam Sanderson Monocytes/100 WBC (Bld) 7.5 % Normal 1.7-12.0 [facility] Comment on above: Performed By: #### C BC #### [facility] [address] [place] [address] Dr. Liliam Sanderson NEUT # 6.1 103/ul Normal 1.4-6.5 [facility] Comment on above: Performed By: #### C BC #### [facility] [address] [place] [address] Dr. Liliam Sanderson Neutrophils/100 WBC (Bld) 58.6 % Normal 43.0-75.0 [facility] Comment on above: Performed By: #### C BC #### [facility] [address] [place] [address] Dr. Liliam Sanderson Platelet mean volume (Bld) [Entitic vol] 8.8 fL Critically low 9.5-13.5 [facility] Comment on above: Performed By: #### C BC #### [facility] [address] [place] [address] Dr. Liliam Sanderson PLT 264 103/ul Normal 150-450 [facility] Comment on above: Performed By: #### C BC #### [facility] [address] [place] [address] Dr. Liliam Sanderson RBC 4.41 106/ul Normal 4.20-5.40 [facility] Comment on above: Performed By: #### C BC #### [facility] [address] [place] [address] Dr. Liliam Sanderson WBC 10.4 103/ul Normal 4.0-11.0 [facility] Comment on above: Performed By: #### C BC #### [facility] [address] [place] [address] Dr. Liliam Sanderson LIPID PROFILEon 11-27-2021 CHOL-HDL RATIO NORM SEE BELOW Normal [facility] Comment on above: Result Comment: 3.3 - 4.4 LOW RISK 4.4 - 7.1 AVERAGE RISK 7.1 - 11.0 MODERATE RISK >11.0 HIGH RISK Performed By: #### C MP, LIPID #### [facility] [address] [place] [address] Dr. Liliam Sanderson Cholesterol [Mass/Vol] 204 mg/dL Critically high <=200 [facility] Comment on above: Performed By: #### C MP, LIPID #### [facility] [address] [place] [address] Dr. Liliam Sanderson Cholesterol in HDL [Mass/Vol] 46 mg/dL Normal 40-60 [facility] Comment on above: Performed By: #### C MP, LIPID #### [facility] [address] [place] [address] Dr. Liliam Sanderson Cholesterol in LDL [Mass/Vol] 125.4 mg/dL Normal [facility] Comment on above: Performed By: #### C MP, LIPID #### [facility] [address] [place] [address] Dr. Liliam Sanderson Cholesterol.total/Melony sterol in HDL [Mass ratio] 4.4 {ratio} Normal [facility] Comment on above: Performed By: #### C MP, LIPID #### [facility] [address] [address] [address] Liliam Sanderson HDL NORMAL > or = 60 mg/dl - LOW CARDIOVASCULAR RISK <40 mg/dl - HIGH CARDIOVASCULAR RISK Normal [facility] Comment on above: Performed By: #### C MP, LIPID #### [facility] [address] [address] [address] Liliam Sanderson LDL CALC NORMAL SEE BELOW Normal [facility] Comment on above: Result Comment: <100 mg/dl OPTIMAL 100 - 129 mg/dl NEAR OR ABOVE OPTIMAL 130 - 159 mg/dl BORDERLINE HIGH 160 - 189 mg/dl HIGH >190 mg/dl VERY HIGH Performed By: #### C MP, LIPID #### [facility] [address] [address] [address] Liliam Sanderson Triglyceride [Mass/Vol] 163 mg/dL Critically high <=150 [facility] Comment on above: Performed By: #### C MP, LIPID #### [facility] [address] [address] [address] Liliam Sanderson VLDL CALC 32.6 mg/dL Normal [facility] Comment on above: Performed By: #### C MP, LIPID #### [facility] [address] [address] [address] Liliam Sanderson PROF 14(COMP METB)on 022 Albumin [Mass/Vol] 4.1 g/dL Normal 3.4-5.0 [facility] Comment on above: Performed By: #### C MP, LIPID #### [facility] [address] [address] [address] Liliam Sanderson Albumin/Globulin [Mass ratio] 1.2 {ratio} Normal [facility] Comment on above: Performed By: #### C MP, LIPID #### [facility] [address] [address] [address] Liliam Sanderson ALP [Catalytic activity/Vol] 61 U/L Normal 46-116 [facility] Comment on above: Performed By: #### C MP, LIPID #### [facility] [address] [address] [address] Liliam Sanderson ALT [Catalytic activity/Vol] 20 U/L Normal 14-59 [facility] Comment on above: Performed By: #### C MP, LIPID #### [facility] [address] [address] [address] Liliam Sanderson Anion gap [Moles/Vol] 11.4 mmol/L Normal [facility] Comment on above: Performed By: #### C MP, LIPID #### [facility] [address] [address] [address] Liliam Sanderson AST [Catalytic activity/Vol] 12 U/L Critically low 15-37 [facility] Comment on above: Performed By: #### C MP, LIPID #### [facility] [address] [address] [address] Liliam Sanderson Bilirubin [Mass/Vol] 0.5 mg/dL Normal 0.2-1.0 [facility] Comment on above: Performed By: #### C MP, LIPID #### [facility] [address] [address] [address] Liliam Sanderson Calcium [Mass/Vol] 8.9 mg/dL Normal 8.5-10.1 [facility] Comment on above: Performed By: #### C MP, LIPID #### [facility] [address] [address] [address] Liliam Sanderson Chloride [Moles/Vol] 102 mmol/L Normal 98-107 [facility] Comment on above: Performed By: #### C MP, LIPID #### [facility] [address] [address] [address] Liliam Sanderson CO2 [Moles/Vol] 28.3 mmol/L Normal 21.0-32.0 [facility] Comment on above: Performed By: #### C MP, LIPID #### [facility] [address] [address] [address] Liliam Sanderson Creatinine [Mass/Vol] 0.66 mg/dL Normal 0.55-1.02 [facility] Comment on above: Performed By: #### C MP, LIPID #### [facility] [address] [address] [address] Liliam Sanderson EGFR-AF GUINEAN >60 Normal >=60 [facility] Comment on above: Performed By: #### C MP, LIPID #### [facility] [address] [address] [address] Liliam Sanderson EGFR-NON AF GUINEAN >60 Normal >=60 [facility] Comment on above: Performed By: #### C MP, LIPID #### [facility] [address] [address] [address] Liliam Sanderson Globulin (S) [Mass/Vol] 3.4 g/dL Normal [facility] Comment on above: Performed By: #### C MP, LIPID #### [facility] [address] [place] [address] Dr. Liliam Sanderson Glucose [Mass/Vol] 100 mg/dL Normal 74-106 [facility] Comment on above: Performed By: #### C MP, LIPID #### [facility] [address] [address] [address] Liliam Sanderson Potassium [Moles/Vol] 3.7 mmol/L Normal 3.5-5.1 [facility] Comment on above: Performed By: #### C MP, LIPID #### [facility] [address] [place] [address] Dr. Liliam Sanderson Protein [Mass/Vol] 7.5 g/dL Normal 6.4-8.2 [facility] Comment on above: Performed By: #### C MP, LIPID #### [facility] [address] [place] [address] Dr. Liliam Sanderson Sodium [Moles/Vol] 138 mmol/L Normal 136-145 [facility] Comment on above: Performed By: #### C MP, LIPID #### [facility] [address] [address] [address] Liliam Sanderson Urea nitrogen [Mass/Vol] 14.0 mg/dL Normal 7.0-18.0 [facility] Comment on above: Performed By: #### C MP, LIPID #### [facility] [address] [place], [place] [address] Dr. Liliam Sanderson Urea nitrogen/Creatinine [Mass ratio] 21.2 mg/mg Normal [facility] Comment on above: Performed By: #### C MP, LIPID #### [facility] [address] [place], [place] [address] Dr. Liliam Sanderson Vital Signs Date Time Vital Sign Value Performing Clinician Facility 09-10-2024 15:01-0500 Body height 152.4 cm [facility] 09-10-2024 15:-0500 Body mass index (BMI) [Ratio] 23.2 kg/m2 [facility] 09-10-2024 15:-0500 Body weight 53.9 kg [facility] 08-27-2024 13:52-0500 Blood Pressure Location JASMIN SPARKSTACOVIOLETA-AMFRANKIRA [facility] [place] 08-27-2024 13:52-0500 Diastolic blood pressure 78 mm[Hg] JASMIN NKANSAH-AMANKRA [facility] [place] 08-27-2024 13:52-0500 Heart rate 66 /min JASMIN SPARKSANSAH-AMANKRA [facility] [place] 08-27-2024 13:52-0500 Systolic blood pressure 140 mm[Hg] JASMIN NKTACOAH-AMANKRA [facility] [place] 08-05-2024 11:05-0500 Body mass index (BMI) [Ratio] 22.3 kg/m2 Micaela Monroy MD Work Phone: [facility] 08-05-2024 11:05-0500 Body temperature 97 [degF] Micaela Monroy MD Work Phone: [facility] 08-05-2024 11:05-0500 Body weight 53.52 kg Micaela Monroy MD Work Phone: [facility] 08-05-2024 11:05-0500 Diastolic blood pressure 45 mm[Hg] Micaela Monroy MD Work Phone: [facility] 08-05-2024 11:05-0500 Heart rate 56 /min Micaela Monroy MD Work Phone: [facility] 08-05-2024 11:05-0500 SaO2% (BldA) [Mass fraction] 98 % Micaela Monroy MD Work Phone: [facility] 08-05-2024 11:05-0500 Systolic blood pressure 108 mm[Hg] Micaela Monroy MD Work Phone: [facility] 07-30-2024 15:32-0500 Body height 152.4 cm [facility] 07-30-2024 15:32-0500 Body mass index (BMI) [Ratio] 23.2 kg/m2 [facility] 07-30-2024 15:32-0500 Body weight 53.97 kg [facility] 07-30-2024 15:32-0500 Diastolic blood pressure 76 mm[Hg] [facility] 07-30-2024 15:32-0500 Heart rate 68 /min [facility] 07-30-2024 15:32-0500 Systolic blood pressure 132 mm[Hg] [facility] 07-24-2024 08:55-0500 Blood Pressure Location Elizabeth Lue [facility] 07-24-2024 08:55-0500 Diastolic blood pressure 68 mm[Hg] Elizabeth Lue [facility] 07-24-2024 08:55-0500 Heart rate 68 /min Elizabeth Lue [facility] 07-24-2024 08:55-0500 Systolic blood pressure 112 mm[Hg] Elizabeth Lue [facility] 07-01-2024 11:39-0500 Body height 154.9 cm Joey Bolden MD Work Phone: [facility] 07-01-2024 11:39-0500 Body mass index (BMI) [Ratio] 22.98 kg/m2 Joey Bolden MD Work Phone: [facility] 07-01-2024 11:39-0500 Body weight 55.16 kg Joey Bolden MD Work Phone: [facility] 07-01-2024 11:39-0500 Diastolic blood pressure 72 mm[Hg] Joey Bolden MD Work Phone: [facility] 07-01-2024 11:39-0500 Heart rate 60 /min Joey Bolden MD Work Phone: [facility] 07-01-2024 11:39-0500 SaO2% (BldA) [Mass fraction] 100 % Joey Bolden MD Work Phone: [facility] 07-01-2024 11:39-0500 Systolic blood pressure 140 mm[Hg] Joey Bolden MD Work Phone: [facility] 05-30-2024 09:26-0500 Body height 152.4 cm [facility] 05-30-2024 09:26-0500 Body mass index (BMI) [Ratio] 24 kg/m2 [facility] 05-30-2024 09:26-0500 Body weight 55.96 kg [facility] 05-30-2024 09:26-0500 Diastolic blood pressure 68 mm[Hg] [facility] 05-30-2024 09:26-0500 Heart rate 75 /min [facility] 05-30-2024 09:26-0500 Systolic blood pressure 122 mm[Hg] [facility] 03-05-2024 15:04-0400 Body height 152.4 cm RISA Martínez Work Phone: [facility] 03-05-2024 15:04-0400 Body mass index (BMI) [Ratio] 24.4 kg/m2 HOME OFFICE CLAIMS EXAMINERKhushi Martínez Work Phone: [facility] 03-05-2024 15:04-0400 Body weight 56.69 kg HOME OFFICE CLAIMS EXAMINERKhushi Martínez Work Phone: [facility] 01-02-2024 14:02-0400 Body height 152.4 cm HOME OFFICE CLAIMS EXAMINERKhushi Martínez Work Phone: [facility] 01-02-2024 14:02-0400 Body mass index (BMI) [Ratio] 25.4 kg/m2 HOME OFFICE CLAIMS EXAMINERKhushi Martínez Work Phone: [facility] 01-02-2024 14:02-0400 Body weight 59 kg HOME OFFICE CLAIMS EXAMINERKhushi Martínez Work Phone: [facility] 10-26-2023 11:18-0400 Body height 153.67 cm [facility] 10-26-2023 11:18-0400 Body mass index (BMI) [Ratio] 25 kg/m2 [facility] 10-26-2023 11:18-0400 Body weight 58.96 kg [facility] 05-10-2023 09:48-0400 Blood Pressure Location Elizabeth Lue [facility] 05-10-2023 09:48-0400 Diastolic blood pressure 67 mm[Hg] Elizabeth Lue [facility] 05-10-2023 09:48-0400 Heart rate 73 /min Elizabeth Lue [facility] 05-10-2023 09:48-0400 Respiratory rate 16 /min Elizabeth Lue [facility] 05-10-2023 09:48-0400 Systolic blood pressure 101 mm[Hg] Elizabeth Lott [facility] 02-14-2023 14:00-0400 Body height 153.67 cm Himanshu Scbolaner Other [employer] Other 02-14-2023 14:00-0400 Body mass index (BMI) [Ratio] 24.78 kg/m2 Himanshu Scovanner Other [employer] Other 02-14-2023 14:00-0400 Body weight 58.51 kg Himanshu Scovanner Other [employer] Other 02-14-2023 14:00-0400 Diastolic blood pressure 84 mm[Hg] Himanshu Scovanner Other [employer] Other 02-14-2023 14:00-0400 Systolic blood pressure 142 mm[Hg] Himanshu Scovanner Other [employer] Other 11-15-2022 16:30-0400 Body height 153.67 cm Himanshu Scovanner Other [employer] Other 11-15-2022 16:30-0400 Body mass index (BMI) [Ratio] 26.27 kg/m2 Himanshu Scovanner Other [employer] Other 11-15-2022 16:30-0400 Body weight 62.05 kg Himanshu Scovanner Other [employer] Other 11-15-2022 16:30-0400 Diastolic blood pressure 76 mm[Hg] Himanshu Scovanner Other [employer] Other 11-15-2022 16:30-0400 Systolic blood pressure 128 mm[Hg] Himanshu Roblesgurpreet Other [employer] Other Encounters Encounter Date Encounter Type Care Provider Facility Start: 10-02-2024 End: 10-02-2024 ambulatory Elizabeth Lott Facility:[id number] Start: 09-20-2024 End: 09-20-2024 ambulatory Elizabeth Lott [facility] Work Phone: Start: 09-20-2024 End: 09-20-2024 Departed Referred Elizabeth Lott MD Work Phone: [facility] Start: 09-10-2024 End: 09-10-2024 ambulatory [facility] Work Phone: Start: 09-10-2024 End: 09-10-2024 Patient encounter procedure [facility] Work Phone: Start: 08-27-2024 End: 08-27-2024 ambulatory JASMIN NKANSAH-AMANKRA Facility:[facility] Start: 08-27-2024 End: 08-27-2024 Patient encounter procedure JASMIN NKANSAH-AMANKRA [facility] Start: 08-13-2024 End: 08-13-2024 ambulatory JASMIN NKANSAH-AMANKRA Facility:[facility] Start: 08-13-2024 End: 08-13-2024 Patient encounter procedure JASMIN NKANSAH-AMANKRA [facility] Start: 08-07-2024 End: 08-07-2024 Telephone encounter Concepción Murphy RN [facility] Comment on above: Surgical Or Dental C learance Start: 08-05-2024 End: 08-05-2024 ambulatory FERNANDO CASTELLON Facility:[facility] Start: 08-05-2024 End: 08-05-2024 Patient encounter procedure Micaela Monroy MD Work Phone: General Surgery Comment on above: Hiatal hernia (Prima ry Dx) Start: 07-30-2024 End: 07-30-2024 ambulatory NON STAFF [facility] Work Phone: Start: 07-30-2024 End: 07-30-2024 Patient encounter procedure [facility] Work Phone: Start: 07-24-2024 ambulatory Elizabeth Lott Facility: [id number] Start: 07-24-2024 End: 07-24-2024 ambulatory Elizabeth Lott Facility:[facility] Start: 07-24-2024 End: 07-24-2024 Patient encounter procedure Elizabeth Lott [facility] Start: 07-01-2024 End: 07-01-2024 Office outpatient visit 25 minutes Joey Bolden MD Work Phone: [facility] Comment on above: Hx of right coronary artery stent placement (Primary Dx); Primary hypertension; Hyperlipidemia, unspecified hyperlipidemia type; Smoker Start: 07-01-2024 End: 07-01-2024 ambulatory JOEY BOLDEN [facility] Start: 06-28-2024 End: 06-28-2024 Telephone encounter [facility] Wyman [facility] Start: 05-31-2024 End: 05-31-2024 Telephone encounter Micaela Monroy MD Work Phone: Colorectal Surgery Start: 05-31-2024 End: 05-31-2024 Patient encounter procedure [facility] [place] Work Phone: Start: 05-31-2024 End: 05-31-2024 ambulatory Himanshu Borjas Facility:[facility] Start: 05-30-2024 End: 05-30-2024 ambulatory [facility] Work Phone: Start: 05-30-2024 End: 05-30-2024 Patient encounter procedure [facility] Work Phone: Start: 03-05-2024 End: 03-05-2024 ambulatory HOME OFFICE CLAIMS EXAMINERKhushi Martínez Work Phone: [facility] Work Phone: Start: 03-05-2024 End: 03-05-2024 Patient encounter procedure HOME OFFICE CLAIMS EXAMINERKhushi Hernandezlim Work Phone: [facility] Work Phone: Start: 02-01-2024 End: 02-01-2024 Refill Los Lee MD Work Phone: [facility] Comment on above: Med Refill Start: 01-30-2024 End: 01-30-2024 ambulatory [place] J Galea Facility:[facility] Start: 01-30-2024 End: 01-30-2024 Patient encounter procedure [place] J Galea [facility] Start: 01-24-2024 End: 01-24-2024 ambulatory [facility] Lott [facility] Start: 01-24-2024 End: 01-24-2024 Patient encounter procedure Elizabeth Lott [facility] Start: 01-16-2024 End: 01-16-2024 Patient encounter procedure RISA Nadiranyla Martínez Work Phone: [facility] [place] Work Phone: Start: 01-16-2024 End: 01-16-2024 ambulatory HOME OFFICE CLAIMS EXAMINERKhushi Martínez Work Phone: [facility] Work Phone: Start: 01-02-2024 End: 01-02-2024 ambulatory HOME OFFICE CLAIMS EXAMINERKhushi Martínez Work Phone: [facility] Work Phone: Start: 01-02-2024 End: 01-02-2024 Patient encounter procedure RISA Martínez Work Phone: [facility] Work Phone: Start: 12-08-2023 End: 12-08-2023 ambulatory NADIRA Nyla MARILYNN [facility] Start: 11-14-2023 End: 11-14-2023 Patient encounter procedure RISA Martínez Work Phone: [facility] Work Phone: Start: 11-14-2023 End: 11-14-2023 ambulatory HOME OFFICE CLAIMS EXAMINERKhushi Martínez Work Phone: [facility] Work Phone: Start: 10-26-2023 End: 10-26-2023 ambulatory [facility] Work Phone: Start: 10-26-2023 End: 10-26-2023 Patient encounter procedure [facility] Work Phone: Start: 07-24-2023 End: 07-24-2023 Patient encounter procedure Elizabeth Lott [facility] Start: 07-05-2023 Refill Juan David sser HOME OFFICE CLAIMS EXAMINER-COTTON INSPECTOR Work Phone: [facility] Comment on above: Med Refill Start: 05-10-2023 End: 05-10-2023 Patient encounter procedure Elizabeth Lott [facility] Start: 02-14-2023 End: 02-14-2023 ambulatory Himanshu Alexeyovanner Other [employer] Other Start: 02-14-2023 Office outpatient vi sit 15 minutes Himanshu Borjas [facility] Start: 01-23-2023 End: 01-23-2023 ambulatory LOS LEE [facility] Start: 11-15-2022 End: 11-15-2022 ambulatory Himanshu Borjas Other [employer] Other Start: 11-15-2022 Office outpatient ne w 30 minutes Himanshu Borjas [facility] Gastroenterology Start: 09-30-2022 End: 09-30-2022 ambulatory [facility] Facility: Start: 06-21-2022 End: 06-24-2022 [facility] Start: 06-21-2022 End: 06-23-2022 Subsequent hospital visit by physician [facility] Nurse 1 [facility] CT Scan Comment on above: Chest pain, unspecif ied type; Dizziness; Abnormal stress ECG Start: 11-27-2021 End: 11-28-2021 ambulatory NADIRA MARTÍNEZ Facility: Procedures Date Procedure Procedure Detail Performing Clinician Start: 07-01-2024 Ecg routine ecg w/le ast 12 lds w/i&r Joey Bolden MD Work Phone: Start: 07-01-2024 Follow-up visit Follow-up SHOBHA BOLDEN Start: 01-16-2024 Computed tomography of abdomen and pelvis with contrast HOME OFFICE CLAIMS EXAMINER Nadira Martínez Work Phone: Start: 07-24-2023 Removal of ureteral stent Albaniayifan Toney Start: 07-12-2023 Ureteroscopy Elizabeth Lott Start: 05-24-2023 Extracorporeal shock wave lithotripsy of calculus of kidney Elizabeth Lott Start: 01-07-2023 Stented artery (finding) Elizabeth Lott Start: 07-10-2018 Hysterectomy JASMIN BHANDARI Comment on [...] RSV Vaccine (1 - 1-dose 75+ series) [facility] Start: 01-23-2026 Diabetes Screening Diabetes Screenin g [facility] Start: 07-01-2025 Adult BMI Screening Adult BMI Screen ing [facility] Start: 07-01-2025 Tobacco Screening Tobacco Screening [facility] Start: 12-07-2024 Screening for malign ant neoplasm of breast Mammogram Screening [facility] Start: 11-05-2024 ambulatory Ambulatory Facility:Nae Vazquez Start: 09-20-2024 Urine culture [facility] Start: 09-20-2024 Bacteria identified in Urine by Culture Urine Culture [facility] Start: 07-10-2024 Advance Directive Discussion Advance Directive Discussion [facility] Start: 07-01-2024 End: 07-01-2024 Patient encounter procedure 07/01/2024 12:00 PM EST [facility] [address] [place] [id number] Joey Bolden MD [address] [place] [address] [facility] Start: 06-19-2024 Adult BMI Screening Adult BMI Screen ing [facility] Start: 06-19-2024 Tobacco Screening Tobacco Screening [facility] Start: 05-30-2024 Patient referral [facility] Work Phone: Start: 03-10-2024 Covid-19 Vaccine () Covid-19 Vaccine () [facility] Start: 03-10-2024 Influenza vaccination [facility] Start: 01-02-2024 Patient referral [facility] Work Phone: Start: 08-17-2023 Tobacco Counseling Tobacco Counselin g [facility] Start: 07-10-2023 Advance Directive Discussion Advance Directive Discussion [facility] Start: 03-10-2023 Influenza vaccination Influenza Vacc ine [facility] Start: 06-15-2022 Annual Wellness Visi t (AWV) Annual Wellness Visit (AWV) [facility] Start: 02-07-2022 Influenza vaccination Flu vaccine (# 1) [facility] Start: 11-09-2021 Diabetes Screening Diabetes Screenin g [facility] Start: 2020 Fall Risk Screening Fall Risk Screen ing [facility] Start: 2020 Pneumococcal 65+ yea rs Vaccine (1 - PCV) Pneumococcal 65+ years Vaccine (1 - PCV) [facility] Start: 2020 Pneumococcal Vaccine : 65+ (1 of 1 - PCV) Pneumococcal Vaccine: 65+ (1 of 1 - PCV) [facility] Start: 2020 Screening for osteoporosis Bone Density Screening [facility] Start: 2010 Screening for osteoporosis DEXA (modify frequency per FRAX score) [facility] Start: 2005 Administration of varicella zoster vaccine Zoster (Shingles) Vaccine (1 of 2) [facility] Start: 2005 Pneumococcal Vaccine : 50+ (1 of 1 - PCV) Pneumococcal Vaccine: 50+ (1 of 1 - PCV) [facility] Start: 2005 Screening for malign ant neoplasm of breast Breast cancer screen [facility] Start: 2005 Shingles vaccine (1 of 2) Hinojosa gles vaccine (1 of 2) [facility] Start: 2005 Shingrix Vaccine (1 of 2) Hinojosa grix Vaccine (1 of 2) [facility] Start: 2000 Lipid panel Lipid Screening [facility] Start: 2000 Screening for malign ant neoplasm of colon [facility] Start: 1995 Lipid panel Lipids [facility] Start: 1995 Screening for malign ant neoplasm of breast Mammogram Screening [facility] Start: 1974 DTaP,Tdap and Td Vac cines (1 - Tdap) DTaP,Tdap and Td Vaccines (1 - Tdap) [facility] Start: 1974 DTaP/Tdap/Td vaccine (1 - Tdap) DTaP/Tdap/Td vaccine (1 - Tdap) [facility] Start: 1974 Urine microalbumin profile DTaP,Tdap,Td Vaccine (1 - Tdap) [facility] Start: 1973 Anxiety Screening Anxiety Screening [facility] Start: 1973 Depression Screening Depression Scre ening [facility] Start: 1973 Hepatitis C screening B [facility] Start: 1967 Depression Screen Depression Screen [facility] Start: 1967 Depression Screening Depression Scre ening [facility] Start: 03-06-1956 COVID-19 Vaccine (#1) COVID-19 Vacci ne (#1) [facility] Start: 1955 Medicare Annual Well ness Visit Medicare Annual Wellness Visit [facility] Start: 1955 Tobacco Counseling Tobacco Counselin osiris [facility] End: 01-31-2025 CBC panel - Blood by Automated count CBC Lab Routine Medication management 1 Occurrences starting 02/01/2024 until 01/31/2025 [facility] Work Phone: Comment on above: 1 Occurrences starti ng 02/01/2024 until 01/31/2025 Cryptosporidium sp A g [Presence] in Stool by Immunoassay [facility] CT Abdomen and Pelvi s W contrast IV [facility] End: 06-21-2022 CTA CORON EJECT FRAC WALL MOTION CTA CORON EJECT FRAC WALL MOTION Imaging Routine Chest pain, unspecified type Dizziness Abnormal stress ECG 1 Occurrences starting 06/21/2022 until 06/21/2022 [facility] Work Phone: Comment on above: 1 Occurrences starti ng 06/21/2022 until 06/21/2022 Fluoroscopy of esophagus [facility] Giardia lamblia Ag [Presence] in Stool by Immunoassay [facility] End: 07-01-2025 Lipid 1996 panel - Serum or Plasma Lipid profile Lab Routine Primary hypertension 1 Occurrences starting 07/01/2024 until 07/01/2025 [facility] Work Phone: Comment on above: 1 Occurrences starti ng 07/01/2024 until 07/01/2025 Patient referral [facility] Work Phone: [facility] Immunizations Immunization Date Immunization Notes Care Provider Kenzie mancia 09-30-2022 tetanus toxoid, redu yonathan diphtheria toxoid, and acellular pertussis vaccine, adsorbed JASMIN NKANSAH-AMANKRA [facility] 03-12-2021 SARS-CoV-2 (COVID-19 ) mRNA BNT-162b2 vax JASMIN NKANSAH-AMANKRA [facility] Comment on above: Result Comment: 2024: [id number] 02-19-2021 SARS-CoV-2 (COVID-19 ) mRNA BNT-162b2 vax JASMIN NKANSAH-AMANKRA [facility] Comment on above: Result Comment: 2024: [id number] Payers Date Payer Category Payer Self-pay 2021 Medicare [id number] 2021 Medicare HMO [employer] MEDICARE [id number] 1959 Medicare [id number] 1955 Unknown [id number] [id number] 1955 Unknown [id number] [id number] 1955 Unknown [id number] 2.16.840.1.500915.3.579.2.593 1955 Unknown [id number] 2.16.840.1.713097.3.579.2.177 1955 Unknown [id number] 2.16.840.1.827614.3.579.2.128 6 1955 Unknown [id number] 2.16.840.1.446576.3.579.2.128 6 1955 Unknown [id number] 2.16.840.1.654442.3.579.2.727 1955 Unknown [id number] 2.16.840.1.262228.3.579.2.727 1955 Unknown [id number] 2.16.840.1.227227.3.579.2.727 1955 Unknown [id number] 2.16.840.1.726597.3.579.2.727 1955 Unknown [id number] 2.16.840.1.109336.3.579.2.727 1955 Unknown [id number] 2.16.840.1.744546.3.579.2.727 1955 Unknown [id number] 2.16.840.1.659161.3.579.2.727 Medicare Medicare [id number] Unknown HCAP/HFA/FAP Active [id number] Unknown [id number] [id number] Unknown [id number] 2.16.840.1.064332.3.579.2.531 Unknown [id number] 2.16.840.1.834959.3.579.2.531 Unknown [id number] [id number] Social History Date Type Detail Facility [facility] [employer] Phone: Start: 1955 Sex Assigned At Not on file [facility] [employer] Phone: Start: 08-19-2020 End: 12-08-2023 Sex Assigned At [facility] Start: 05-10-2023 End: 08-27-2024 Tobacco smoking status Light tobacco smoker (finding) [facility] Start: 12-20-2022 End: 01-21-2025 Tobacco smoking status NHIS Smoker (finding) [facility] Start: 1955 Sex Assigned At Female F [facility] Start: 05-30-2024 End: 09-22-2024 Sex Female (finding) [facility] Start: 10-03-2014 End: 08-05-2024 Tobacco smoking status NHIS Ex-smoker [facility] Start: 12-20-1975 End: 12-19-2012 History of tobacco use Cigarette Smoker [facility] Start: 10-03-2014 End: 08-19-2020 Cigarettes smoked current (pack per day) - Reported 0.5 [facility] Start: 10-03-2014 End: 04-27-2022 Tobacco use and exposure Smokeless tobacco non-user [facility] Start: 10-21-2014 End: 08-05-2024 Alcoholic beverage intake Current non-drinker of alcohol (finding) [facility] Start: 04-27-2022 Tobacco smoking stat us DCIS Smokes tobacco daily [facility] Start: 06-19-2023 End: 12-08-2023 Alcoholic beverage intake Ex-drinker (finding) [facility] Childcare Unknown [facility] Start: 04-27-2022 Tobacco Comment has been decre asing daily [facility] Start: 05-06-2022 Alcohol Comment social--rare [facility] Functional Status Date Assessment Result Facility 08-27-2024 Functional Status N/A [facility] 07-24-2024 Functional Status N/A [facility] 05-10-2023 Functional Status N/A [facility] Clinical Notes 11-15-2022 to 08-27-2024 Telephone [...] require a prescription. You can also purchase xqav-mjg-hvtnmfg medicines. Medicines may have nicotine in them [...] and encouragement. Call telephone quitlines, such as 8-014-QUNQ-NOW, reach out to support groups, or work [...] provider. Document Revised: 06/17/2022 Document Reviewed: 06/17/2022 [employer] Patient Education 2023 [employer] 08/27/2024 14:10:40 How to Use a [...] vagina. Follow these instructions at home: Take kjzu-psy-vtmwfxz and prescription medicines only as told by [...] provider. Document Revised: 12/24/2020 Document Reviewed: 12/24/2020 [employer] Patient Education 2023 [employer]. Follow Up Care 08/14/2024 09:26:00 With:JASMIN BHANDARI MD, URL Address: When: Unknown [facility] Ezequiel 08-27-2024 Note Patient Education Obstetrics and [...] Follow these instructions at home: ??? Take zbqt-nsh-jjzlcom and prescription medicines only as told by [...] provider. Document Revised: 12/24/2020 Document Reviewed: 12/24/2020 Elsevier Patient Education ? 2023 [employer] Pulmonary Medicine Steps to Quit Smoking [...] provider if you (more content not included)... [facility] 08-07-2024 Miscellaneous Notes Surgeon: Dr. Elizabeth Lott Type of surgery: Rt ESWL for kidney stones Date of surgery: 10/02/24 Surgery location: [facility] Type of anesthesia: General On a blood thinner?: N/A On an antiplatelet?: ASA Plavix- Would like to hold both for 5-7 days Had CARRILLO to [facility] 01/2023 Date of last EK07/01/24 History of CVA/TIA, DVT/PE? None known Last saw Dr. Bolden 07/01/24 Noted. Moderate risk, risk non prohibitive. Can discontinue aspirin indefinitely. Hold Plavix for 5-7 days prior to procedure and resume when cleared afterwards. Thank you Note created and faxed documented in this encounter [facility] Telephone encounter Note Surgeon: Dr. Elizabeth Lott Type of surgery: Rt ESWL for kidney stones Date of surgery: 10/02/24 Surgery location: [facility] Type of anesthesia: General On a blood thinner?: N/A On an antiplatelet?: ASA Plavix- Would like to hold both for 5-7 days Had CARRILLO to [facility] 01/2023 Date of last EK07/01/24 History of CVA/TIA, DVT/PE? None known Last [facility] Dr. Bolden 07[facility]01[facility]24 [facility] 08-07-2024 Telephone encounter Note Noted. Moderate risk, risk non prohibitive. Can discontinue aspirin indefinitely. Hold Plavix for 5-7 days prior to procedure and resume when cleared afterwards. Thank you [facility] 08-07-2024 Telephone encounter Note Note created and faxed [facility] 08-05-2024 Note HNO ID: [id number] Author: MICAELA MONROY MD Service: ? Author [...] with more than 50% of the total rqzz-hy-vceq time of the visit in counseling / coordination of care. [facility] 08-05-2024 History of Presen t illness Narrative Consultation requested by Dr. Fenrando Castellon for an opinion regarding hiatal hernia. [...] with more than 50% of the total xsru-re-owjc time of the visit in counseling / coordination of care. documented in this encounter [facility] 07-30-2024 Evaluation note Diagnosis Onset Date Resolution GERD (gastroesophageal reflux disease) acute July 30 3:30pm Irritable bowel syndrome with diarrhea acute July 112024 3:30pm Nausea acute July 30, 2024 3:30pm Diarrhea acute September 10 3:00pm Sliding hiatal hernia acute Sep 3:00pm [facility] Work Phone: 1(165) 191-419701-21-2025 Evaluation note* Diagnosis Onset Date Resolution Status Admit Date GERD (gastroesophageal reflu x disease) acute July 30 3:30pm Irritable bowel syndrome wit h diarrhea acute July 30 3:30pm Nausea acute July 30, 2024 3:30pm GERD (gastroesophageal reflu x disease) acute September 10, 2024 3:00pm Sliding hiatal hernia acute Sep 3:00pm [facility] Work Phone: 1(367) 527-186701-15-2025 Hospital Discharge instructions Patient Education 07/24/2024 09:48:55 [...] include: ?8 oz (237 mL) of milk, pslslbg-ogjqrhdginal-fxqlb milk, and calcium- fortifiedfruit juice. Calcium-fortified means [...] ?Spinach (cooked), rhubarb, beets, sweet potatoes, and Scottish chard. ?Peanuts. ?Potato chips, ecuadorean fries, and baked potatoes with skin on. ?Nuts and nut products. ?Chocolate. If you regularly take a diuretic medicine, make sure to eat at least 1 or 2 servings of fruits or vegetables that are high in potassium each day. These include: ?Avocado. ?Banana. ?[place], prune, carrot, or tomato juice. ?Baked potato. [...] magnesium, fish oil, or vitamin B6. Take blqn-quv-mwhijnl and prescription medicines only as told by [...] Casseroles. Pizza. Lasagna. Frozen meals. Potato chips. Lebanese fries. The items listed above may not [...] provider. Document Revised: 10/06/2022 Document Reviewed: 10/06/2022 [employer] Patient Education 2023 [employer]. Follow Up Care 04/24/2024 16:03:36 With:Oren BOB, JOCELYN Temple, URO Address: When: Unknown Comments:Schedule ESWL [facility] 01-15-2025 NotePatient Education Nephrology Dietary Guidelines to [...] ? 8 oz (237 mL) of milk, lxslnck-srowcozzhcvw-zjjur milk, and calcium- fortifiedfruit juice. Calcium-fortified means [...] Spinach (cooked), rhubarb, beets, sweet potatoes, and Scottish chard. ? Peanuts. ? Potato chips, ecuadorean fries, and baked potatoes with skin on. ? Nuts and nut products. ? Chocolate. ??? If you regularly take a diuretic medicine, make sure to eat at least 1 or 2 servings of fruits or vegetables that are high in potassium each day. These include: ? Avocado. ? Banana. ? [place], prune, carrot, or tomato juice. ? Baked [...] fish oil, or vitamin B6. ??? Take sspr-auy-iyrygej and prescription medicines only as told by your health (more content not included)...[facility]12-23-2024 History of Present illness Narrative* Joey Bolden MD - 07/01/2024 12:00 PM EST Sly Coy Date of visit: 07/01/2024 Date of : 1955 Age: 68 y.o. 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 On her feet for hours, no issues at work. Past Medical History: Diagnosis Date Anxiety Bronchitis Chest pain Dizziness GERD (gastroesophageal reflux disease) Hyperlipidemia Hypertension Kidney stones Vertigo No data recorded No data recorded No data recorded Past Surgical History: Procedure Laterality Date BLADDER SURGERY 01/2018 bladder suspension COLONOSCOPY COLONOSCOPY N/A 12/24/2020 Performed by Tyler Wesley MD at [facility] DILATION AND CURETTAGE OF UTERUS ESOPHAGOGASTRODUODENOSCOPY ESOPHAGOGASTRODUODENOSCOPY 12/20/2022 ESOPHAGOGASTRODUODENOSCOPY N/A 12/24/2020 Performed by Tyler Wesley MD at [facility] HYSTERECTOMY 01/15/2018 LASER ABLATION uterine LITHOTRIPSY [...] pain CAD s/p CARRILLO to [facility] at [facility] 01/2023 Normal EF TTE 04/2022 and [...] in about 6 months (around 12/30/2024). PCP: [facility] Edith Referring Physician: Nadira Martínez, HOME OFFICE CLAIMS EXAMINER-COTTON INSPECTOR [address] [place] [address] documented in this encounterMount [facility]ut[facility]12-23-2024 Instructions* Patient Instructions* Suzette Haskins, SHINGLE CATCHER - 07/01/2024 12:00 PM EST Are You Ready To Kick The Habit? Free Tobacco Cessation Resources [facility] Services [facility] provide all employees with free tobacco cessation services that include: Counseling to understand nicotine addiction Education about medications that can help you successfully quit Assistance with developing a plan to quit Call to set up an individual appointment or find out when group classes will be held: [facility]: [phone] [facility]: [phone] [facility]: [phone] [facility]: [phone] Quit Smoking Action Plan and Resources [facility] offers an eight-week, online smoking cessation plan to all [facility] employees, regardless of whether [employer] is your medical insurance provider. Go to www.Nubimetrics.[email or web address]/employeewellness and click the Health Risk Assessment and Resources link to get started. In the [employer] menu, click Action Plans instead of Health Risk Assessment to access the Quit Smoking Action Plan. Additional smoking cessation resources are also available to all [facility] employees on the [employer] web page at www.Viralize/quitsmoking. [employer] Tobacco Cessation Program If [employer] is your medical insurance provider, there are more free resources available to you, including: No copays or deductibles on local tobacco cessation counseling services to help you quit Prescription assistance for tobacco cessation medications to help you quit For details about the tobacco cessation program available to [employer] members, go to www.Soonr.[employer] (Search: Tobacco Cessation Program). [place] Tobacco Quit Line 8-341-PNGK-NOW ( ) is a toll-free, telephonic service that helps [place] residents quit smoking and using tobacco. It is staffed by experts who tailor a quit plan for you and provide you with advice. [place] Tobacco Quit Line 0-626-PQHF-NOW ( ) is a toll-free, telephonic service that helps [place] residents quit smoking and using tobacco. It is staffed by experts who tailor a quit plan for you and provide you with advice. Two weeks of nicotine replacement therapy may be provided at no charge, if needed. Additional Resources These national organizations also offer free information and resources to help you quit tobacco: [place] [employer]--www.cancer.org/healthy/stayawayfromtobacco [place] [employer]--www.heart.org (Search: Quit Smoking) Centers for Disease Control and Prevention--www.cdc.gov/tobacco [place] [employer]--www.lungusa.org documented [facility] Miscellaneous Notes* Telephone Encounter - Clover Wyman CMA - 06/28/2024 9:23 AM EST Called patient to remind them to bring their most current copy of their medication list with them to their appt. Patient verbalizes understanding. documented in this encounterW[facility]12-[facility]-2024 Telephone encounter Note* Telephone Encounter - Clover Wyman CMA - 06/28/2024 9:23 AM EST Called patient to remind them to bring their most current copy of their medication list with them to their appt. Patient verbalizes understanding. [facility]11-22-2024 Telephone encounter Note* Telephone Encounter - Compa Tavares - 05/31/2024 4:00 PM EST For documentation purpose- Left a detail message for the patient to schedule an appointment with Dr. Monroy (40 mins slot). Referral from [facility] scanned. Thank you [facility]11-22-2024 Miscellaneous Notes* Telephone Encounter - Compa Tavares - 05/31/2024 4:00 PM EST For documentation purpose- Left a detail message for the patient to schedule an appointment with Dr. Monroy (40 mins slot). [facility]erral from [facility]. Thank you documented in [facility] Evaluation note* Diagnosis Onset Date Resolution Status Admit Date Diarrhea acute May 30, 2024 9:21am Esophageal dysmotility acute No vember 2023 9:21am GERD (gastroesophageal reflu x disease) acute May 30, 2 024 9:21am Nausea acute May 30, 2024 9:21am Sliding hiatal hernia acute May 9:21am GERD (gastroesophageal reflu x disease) acute July 30 3:30pm Irritable bowel syndrome wit h diarrhea acute July 30 3:30pm Nausea acute July 30, 2024 3:30pm [facility] Work Phone: 1(897) 297-618708-27-2024 Evaluation note* Diagnosis Onset Date Resolution Status Admit Date Dyspepsia acute March 05, 2 024 2:54pm GERD (gastroesophageal reflu x disease) acute March 05 2:54pm Sliding hiatal hernia acute Feb us2023 2:54pm Diarrhea acute May 30, 2024 9:21am GERD (gastroesophageal reflu x disease) acute May 30, 2 024 9:21am [facility] Work Phone: 1(177) 290-762607-25-2024 Miscellaneous Notes* Telephone Encounter - Chelsey Biggs RN - 02/01/2024 1:35 PM EDT OV-06/19/2023 [facility]-02/10/2023 Letter sent via mail for reminder of labs and appointment documented in this encounterWright[facility]Pat[facility]07-25-2024 Telephone encounter Note* Telephone Encounter - Chelsey Biggs RN - 02/01/2024 1:35 PM EDT OV-06/19/2023 CBC-02/10/2023 Letter sent via mail for reminder of labs and appointment [facility]06-25-2024 Evaluation note* Author Himanshu Borjas [facility] Authored January 02, 2024 2:23 pm Patient is positive for dysp epsia, patient notes dysphagia, epigastric pain, globus sensation and daily nausea Patient is also positive for abdominal pain [facility] Work Phone: 1(179) 923-582906-25-2024 Hospital Discharge instructionsAmbulatory Orders* Referral to Gastroenterology Time Frame: 01/02/24, Location: None Selected [facility] Work Phone: 1(658) 837-390302-01-2024 Hospital Discharge instructions Follow Up Care 08/10/2023 14:01:54 With:Oren BOB, JOCELYN Temple, URO [address] [place] [address] [phone] When: Unknown [facility] 01-15-2024 Hospital Discharge instructions Patient Education [...] include: ?8 oz (237 mL) of milk, cwrszcw-kxzgwowhbdif-egzhw milk, and calcium- fortifiedfruit juice. Calcium-fortified means [...] ?Spinach (cooked), rhubarb, beets, sweet potatoes, and Scottish chard. ?Peanuts. ?Potato chips, ecuadorean fries, and baked potatoes with skin on. ?Nuts and nut products. ?Chocolate. If you regularly take a diuretic medicine, make sure to eat at least 1 or 2 servings of fruits or vegetables that are high in potassium each day. These include: ?Avocado. ?Banana. ?[place], prune, carrot, or tomato juice. ?Baked potato. [...] magnesium, fish oil, or vitamin B6. Take xlrj-zes-dqzkeju and prescription medicines only as told by [...] Casseroles. Pizza. Lasagna. Frozen meals. Potato chips. Lebanese fries. The items listed above may not [...] provider. Document Revised: 10/06/2022 Document Reviewed: 10/06/2022 [employer] Patient Education 2022 [place]. Follow Up Care 07/13/2023 14:28:20 With:Elizabeth Lott Address: [address] [address]- [phone] Business (1) [address], [address] [address] [phone] Business (1) When: Unknown Comments:Obtain renal US in 6 weeks at [facility]. Office to call with results. If no hydronephrosis, office will call to schedule follow up in 6 months with KUB and renal US [facility]12-27-2023 Miscellaneous Notes* Telephone Encounter - Cristine Rodriguez RN - 07/05/2023 5:30 PM EST Ov 06/19/23 documented in [facility] encounterOhio[facility] Hospital[facility] App [id number] Telephone encounter Note* Telephone Encounter - Cristine Rodriguez RN - 07/05/2023 5:30 PM EST Ov 06/19/23 [id number] Hospital Discharge instructions Patient Education 05/10/2023 10:27:19 [...] include: ?8 oz (237 mL) of milk, zfiwyvu-bfdcbvnxlqje-mqmus milk, and calcium- fortifiedfruit juice. Calcium-fortified means [...] ?Spinach (cooked), rhubarb, beets, sweet potatoes, and Scottish chard. ?Peanuts. ?Potato chips, ecuadorean fries, and baked potatoes with skin on. ?Nuts and nut products. ?Chocolate. If you regularly take a diuretic medicine, make sure to eat at least 1 or 2 servings of fruits or vegetables that are high in potassium each day. These include: ?Avocado. ?Banana. ?[place], prune, carrot, or tomato juice. ?Baked potato. [...] magnesium, fish oil, or vitamin B6. Take hbdl-oxk-auegirh and prescription medicines only as told by [...] Casseroles. Pizza. Lasagna. Frozen meals. Potato chips. Lebanese fries. The items listed above may not [...] provider. Document Revised: 03/07/2022 Document Reviewed: 03/07/2022 [employer] Patient Education 2022 [place]. Follow Up Care 02/01/2023 14:06:36 With:Oren BOB, JOCELYN Temple, URO Address: When: Unknown Comments:Jaylan Vega ESWL/Stent [facility] 08-08-2023 Evaluation note* Encounter Date Diagnosis Assessment Notes Treatment Notes Treatment Clinical Notes Feb, Hiatal hernia (ICD-10 - K44.9) Pt is taking omeprazole. Pt states this medication is working for her. Pt states she still some times gets acid reflux, but overall, she is doing well. Pt RTO in 6 months Feb, Esophageal stricture (ICD-10 - K22.2) [employer] Other 05-09-2023 Evaluation note* Encounter Date Diagnosis Assessment Notes Treatment Notes Treatment Clinical Notes November, GERD (gastroesophageal reflux disease) (ICD-10 - K21.9) we will obtain a records release to get records from [facility] It is recommened that patient get EGD and she argees to have this done Patient has family history of esophageal cancer November, Family history of esophageal cancer (ICD-10 - Z80.0) [employer] Other Evaluation + Plan note No data available for this section [facility] evaluation + Plan note Future Appointments Appointment Date:01/30/2024 08:00:00 AM Scheduled Provider:Albania Chow Location:[facility] Appointment Type:URO Office Visit [facility] evaluation note* Diagnosis Chest pain, unspecified type Dizziness Dizziness and giddiness Abnormal stress ECG Other nonspecific abnormal cardiovascular system function study documented in this encounter [facility] Work Phone: evaluation note* Diagnosis Onset Date Resolution Status Hiatal hernia acute [facility] Work Phone: evaluation note* Author Himanshu Borjas [facility] Authored January 02, 2024 2:23 pm Patient is positive for dysp epsia, patient notes dysphagia, epigastric pain, globus sensation and daily nausea Patient is also positive for abdominal pain [facility] Work Phone: evaluation note* Diagnosis Hematuria- [...] Tobacco use disorder documented in this encounter [facility]* Diagnosis Hiatal hernia- Primary Diaphragmatic hernia without mention of obstruction or gangrene documented in this encounter [facility] note* Diagnosis Medication management- Primary documented in this encounter [facility] SystemHistory general Narrative - Reported* Type Description Date Medical History kidney stones Medical History hypertension Medical History gastritis Medical History Hiatal hernia Surgical History kidney stone Surgical History fx nose Surgical History ablasion Surgical History tubal ligation [employer] Other History general Narrative - Reported* Type Description Date Medical History kidney stones Medical History hypertension Medical History gastritis Medical History Hiatal hernia Surgical History kidney stone Surgical History fx nose Surgical History ablasion Surgical History tubal ligation Hospitalization History Heart procedure [employer] Other Hospital Discharge instructions No data available for this section [facility] Hospital Discharge instructionsAmbulatory Orders* Referral to General Surgery Time Frame: 05/30/24, Location: [facility] Work Phone: InstructionsNot on filedocumented in this encounter [facility] SystemInstructionsNot on filedocumented in this encounter [facility] SystemInstructionsNot on filedocumented in this encounter [facility] SystemInstructionsNot on filedocumented in this encounter [facility] [place] SystemProgress note No data available for this section [facility] Reason for Referral Specialty Diagnoses / Procedures Referred By Milton jimenez Referred To Contact Radiology Diagnoses Chest pain, unspecified type Dizziness Abnormal stress ECG R07.9 (ICD-10-CM) - Chest pain, unspecified type Procedures CTA CORON EJECT FRAC WALL MOTION CHG CT ANGIO HRT CORNRY ART/BYPASS GRFTS CONTRST 3D POST 04304 - CHG CT ANGIO HRT CORNRY ART/BYPASS [facility] CONTRST 3D POST Chanel Harrell MD [address] [place] [address] Referral ID Status Reason Start Date Expiration Date V isits Requested Visits Authorized [id number] Authorized 06/21/2022 05/07/2023 1 1 Summary Purpose [...] 2024 3 :30pm GERD (gastroesophageal reflux disease) [facility] 2024 3:00pm Sliding hiatal hernia September 10, [...] HRT CORNRY ART/BYPASS GRFTS CONTRST 3D POST [id number] - CHG CT ANGIO HRT CORNRY ART/BYPASS GRFTS CONTRST 3D POST Chanel Harrell MD [address] [place] [address] Referral ID Status Reason Start Date Expiration Date V isits Requested Visits Authorized [id number] Authorized 06/21/2022 05/07/2023 1 1 Reason Comments Follow-up EST PT LS 06/19/23 H M. SCHED W/PT Reason Comments Hernia Reason Onset Date Comments Surgical Or Dental Clearance 08/07/2024 Reason Comments Med Refill Care Teams (unrecognized sec tion and content) Pond Worker Relationship Specialty Start Date End Date Nadira Martínez APRN - COTTON INSPECTOR [address] [place] [address] PCP - General Certified Nurse Practitioner 06/17/22 Team Status: Active Member Role Status Dates Nadira Martínez APRN AUTOMOTIVE TECHNICIAN INSTRUCTOR-C Primary Care Provider Active Team Status: Inactive Member Role Status Dates Nadira Martínez APRN AUTOMOTIVE TECHNICIAN INSTRUCTOR-C Primary Care Provider Active Start: October 26, 2023 End: October 26, 2023 Himanshu Borjas APRN Attending Provider Active Start: October 26, 2023 End: October 26, 2023 Team Status: Inactive Member Role Status Dates Nadira Martínez APRN AUTOMOTIVE TECHNICIAN INSTRUCTOR-C Primary Care Provider Active Start: November 14, 2023 End: November 14, 2023 Himanshu Borjas APRN Attending Provider Active Start: November 14, 2023 End: November 14, 2023 Team Status: Inactive Member Role Status Dates Nadira Martínez APRN AUTOMOTIVE TECHNICIAN INSTRUCTOR-C Primary Care Provider Active Start: January 02, 2024 End: January 02, 2024 Himanshu Borjas APRN Attending Provider Active Start: January 02, 2024 End: January 02, 2024 Team Status: Inactive Member Role Status Dates Nadira Martínez APRN AUTOMOTIVE TECHNICIAN INSTRUCTOR-C Primary Care Provider Active Start: January 16, 2024 End: January 16, 2024 Himanshu Borjas APRN Attending Provider Active Start: January 16, 2024 End: January 16, 2024 Team Status: Inactive Member Role Status Dates Nadira Martínez APRN AUTOMOTIVE TECHNICIAN INSTRUCTOR-C Primary Care Provider Active Start: March 05, 2024 End: March 05, 2024 Himanshu Borjas APRN Attending Provider Active Start: March 05, 2024 End: March 05, 2024 Team Status: Inactive Member Role Status Dates Nadira Martínez APRN AUTOMOTIVE TECHNICIAN INSTRUCTOR-C Primary Care Provider Active Start: May 30, 2024 End: May 30, 2024 Himanshu Borjas APRN Attending Provider Active Start: May 30, 2024 End: May 30, 2024 Pond Worker Relationship Specialty Start Date End Date Rafael Garrison MD [address] [facility] [place] [phone] PCP - General Internal Medicine 10/03/14 Himanshu Borjas CNP [address] [place] [id number] Family Medicine 01/10/24 Pond Worker Relationship Specialty Start Date End Date Nadira Martínez APRN-COTTON INSPECTOR [address] [place] [address] PCP - General Family Medicine 11/23/20 Pond Worker Relationship Specialty Start Date End Date [facility] [address] [place], [place] PCP - General Family Medicine 07/01/24 [...] July 30, 2024 End: July 30, 2024 Pond Worker Relationship Specialty Start Date End Date Rafael Garrison MD [address] [place] [phone] PCP - General Internal Medicine 10/03/14 Himanshu Borjas CNP [address] [place] [id number] Family Medicine 01/10/24 Pond Worker Relationship Specialty Start Date End Date [facility] [address], [place] PCP - General Family Medicine 07/01/24 Pond Worker Relationship Specialty Start Date End Date Nadira Martínez APRN-RUSSELL [address] [place], [place] [phone] PCP - General Family Medicine 11/23/20 Pond Worker Relationship Specialty Start Date End Date Nadira Martínez APRN-RUSSELL [address], [place] [phone] PCP - General Family Medicine 11/23/20 Team [...] section and content) DATE CREATED AUTHOR 06/30/2022 [facility] DATE CREATED AUTHOR AUTHOR'S ORGANIZ ATION 10/06/2022 [facility] DATE CREATED AUTHOR AUTHOR'S ORGANIZ ATION 01/23/2023 [facility] DATE CREATED AUTHOR AUTHOR'S ORGANIZ ATION 07/03/2024 [facility] DATE CREATED AUTHOR AUTHOR'S ORGANIZ ATION 08/07/2024 [facility] DATE CREATED AUTHOR AUTHOR'S ORGANIZ ATION 09/24/2024 [facility] DATE CREATED AUTHOR AUTHOR'S ORGANIZ ATION 10/12/2024 Gar[facility] Freeman [facility] Goals (unrecognized section and content) Goals may be documented in a n alternate section Source Comments (unrecognize d section and content) In the event this informatio n is protected by the Federal Confidentiality of Alcohol and Drug Abuse Patient Records regulations: The Federal rules restrict any use of the information to criminally investigate or prosecute any alcohol or drug abuse patient.[facility] HospitalIn the event this information is protected by the Federal Confidentiality of Alcohol and Drug Abuse Patient Records regulations: The Federal rules restrict any use of the information to criminally investigate or prosecute any alcohol or drug abuse patient.[facility] FOR RECORDS PERTAINING TO PATIENTS WHO [...] PRIMARY CLINICAL RECORDS. [facility]. provides no warranty or guarantee of the accuracy or completeness of information in this document.
--- NOTE | 2024-10-22 12:01 | PC.NURSE ---
pt is ambulatory to ER 6, she has visible swelling noted to right frontal forehead, pt denies LOC, pt is alert x 4, respirations even and non labored
--- NOTE | 2024-10-22 12:04 | ED.GENADUL1 ---
HPI HPI - General Adult General Chief complaint: Fall Stated complaint: FALL Time Seen by Provider: 10/22/24 12:00 Source: patient Mode of arrival: walk-in Limitations: no limitations History of Present Illness HPI narrative: Patient states shortly prior to arrival she was taking her dog out to walk came and in the apartment building that she lives, she fell down the indoor carpeted stairs injuring the head. She also complains of pain in the left arm. She also reports left-sided neck pain. Related Data Home Medications ?Medication ?Instructions ?Recorded ?Confirmed citalopram 20 mg tablet 20 mg PO DAILY 01/18/23 10/02/24 isosorbide mononitrate 30 mg 30 mg PO DAILY 01/18/23 10/02/24 tablet,extended release 24 hr lisinopril 40 mg tablet 40 mg PO QPM 01/18/23 10/02/24 omeprazole 40 mg capsule,delayed 40 mg PO DAILY 01/18/23 10/02/24 release rosuvastatin 20 mg tablet 20 mg PO DAILY 01/18/23 10/02/24 clopidogrel 75 mg tablet 75 mg PO DAILY 02/02/23 10/02/24 alendronate 70 mg tablet 70 mg PO .weekly 03/09/24 10/02/24 cholecalciferol (vitamin D3) 25 1,000 unit PO DAILY 03/09/24 10/02/24 mcg (1,000 unit) capsule famotidine 40 mg tablet 40 mg PO DAILY 03/09/24 10/02/24 estradiol 0.01% (0.1 mg/gram) 0.25 appful vaginal QWEEK 09/20/24 10/02/24 vaginal cream (Estrace) nitroglycerin 0.4 mg sublingual 0.4 mg buccal Q5M PRN chest pain 09/20/24 09/20/24 tablet Previous Rx's ?Medication ?Instructions ?Recorded tramadol 50 mg tablet 25 mg (1/2 x 50 mg) PO Q6H PRN 09/19/24 pain #10 tabs tamsulosin 0.4 mg capsule (Flomax) 0.4 mg PO DAILY stone passage #30 10/02/24 caps ondansetron 4 mg disintegrating 4 mg PO Q6H PRN nausea and 10/22/24 tablet vomiting #10 tabs Allergies Allergy/AdvReac Type Severity Reaction Status Date / Time No Known Drug Allergies Allergy Verified 10/22/24 11:52 Opioid HPI Opioid Management Most Recent Opioid Data: Last Pain Scale 0 11/22/23 13:27 11/22/23 Review of Systems ROS Status of ROS 10 or more systems reviewed and unremarkable except as noted in history and below [facility] Medical History Concussion ?S06.0XAA - Concussion with loss of consciousness status unknown, initial encounter (ICD-10) Back pain ?M54.9 - Dorsalgia, unspecified (ICD-10) Osteoporosis ?M81.0 - Age-related osteoporosis without current pathological fracture (ICD-10) Arthritis ?M19.90 - Unspecified osteoarthritis, unspecified site (ICD-10) Depression ?F32.A - Depression, unspecified (ICD-10) Unintentional weight loss (2024) ?R63.4 - Abnormal weight loss (ICD-10) Diverticulitis ?K57.92 - Diverticulitis of intestine, part unspecified, without perforation or abscess without bleeding (ICD-10) Anemia ?D64.9 - Anemia, unspecified (ICD-10) Migraine ?G43.909 - Migraine, unspecified, not intractable, without status migrainosus (ICD-10) Kidney stones ?N20.0 - Calculus of kidney (ICD-10) Postoperative nausea and vomiting ?R11.2 - Nausea with vomiting, unspecified (ICD-10) ?Z98.890 - Other specified postprocedural states (ICD-10) Anxiety ?F41.9 - Anxiety disorder, unspecified (ICD-10) Acid reflux ?K21.9 - Gastro-esophageal reflux disease without esophagitis (ICD-10) Hyperlipidemia ?E78.5 - Hyperlipidemia, unspecified (ICD-10) Hypertension ?I10 - Essential (primary) hypertension (ICD-10) Coronary artery disease ?I25.10 - Atherosclerotic heart disease of lime coronary artery without angina pectoris (ICD-10) Hx of renal calculi ?Z87.442 - Personal history of urinary calculi (ICD-10) Surgical History S/P cystoscopy with ureteral stent placement (07/12/23) ?Z96.0 - Presence of urogenital implants (ICD-10) H/O cystoscopy (05/24/23) ?Z98.890 - Other specified postprocedural states (ICD-10) History of ovarian cystectomy ?Z98.890 - Other specified postprocedural states (ICD-10) ?Z87.42 - Personal history of other diseases of the female genital tract (ICD-10) History of endometrial ablation ?Z98.890 - Other specified postprocedural states (ICD-10) History of tubal ligation ?Z98.51 - Tubal ligation status (ICD-10) History of esophagogastroduodenoscopy (EGD) ?Z98.890 - Other specified postprocedural states (ICD-10) History of colonoscopy ?Z98.890 - Other specified postprocedural states (ICD-10) History of cystoscopy ?Z98.890 - Other specified postprocedural states (ICD-10) History of lithotripsy ?Z98.890 - Other specified postprocedural states (ICD-10) Hx of heart artery stent ?Z95.5 - Presence of coronary angioplasty implant and graft (ICD-10) Hx of hysterectomy ?Z90.710 - Acquired absence of both cervix and uterus (ICD-10) Family History Other Family history of breast cancer Family history of hypertension Family history of myocardial infarction Social History Within the past year, how often did you have a drink containing alcohol: monthly or less Smoking status: Current every day smoker What tobacco products do you use: cigarettes Non-prescribed substance use: cannabis (any form) Non-prescribed substance use details: LAST WEEK 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 There is a fairly moderately large cephalhematoma overlying the right forehead with underlying tenderness no laceration is identified. Pupils are equal and reactive. EOMs are full. No other facial bony tenderness is noted she does not have any significant midline cervical spine tenderness but most of her pain is localized in the left paracervical soft tissue. Patient is diffusely tender over the left shoulder, the left elbow and the left wrist. No obvious deformities noted in these areas other than superficial bruising on the dorsum of her left wrist. The rest of the bony survey of her other extremities is negative. Lung sounds are clear to auscultation bilaterally and there is no chest wall tenderness. Abdomen soft nontender. Constitutional Vital Signs, click to edit/add: Last Vital Signs Temp 97.7 F 10/22/24 11:52 Pulse 77 10/22/24 11:52 Resp 18 10/22/24 11:52 BP 137/71 10/22/24 11:52 Pulse Ox 99 10/22/24 11:52 O2 Del Method Room Air 10/22/24 11:52 Course Vital Signs Vital signs: Vital Signs Temperature 97.7 F 10/22/24 11:52 Pulse Rate 77 10/22/24 11:52 Respiratory Rate 18 10/22/24 11:52 Blood Pressure 137/71 10/22/24 11:52 Pulse Oximetry 99 10/22/24 11:52 Oxygen Delivery Method Room Air 10/22/24 11:52 Temperature 97.7 F 10/22/24 11:52 Pulse Rate 77 10/22/24 11:52 Respiratory Rate 18 10/22/24 11:52 Blood Pressure 137/71 10/22/24 11:52 Pulse Oximetry 99 10/22/24 11:52 Oxygen Delivery Method Room Air 10/22/24 11:52 Medical Decision Making MDM Narrative Medical decision making narrative: Patient presents for evaluation of injuries secondary to a fall down a staircase. There was no loss of consciousness. She has a forehead cephalhematoma. CT scan of the brain is negative for any bleed and CT cervical spine does not reveal any fracture. X-rays of the left arm are negative. Patient is placed on Zofran for nausea and is advised acetaminophen for pain as needed. She may return for worsening symptoms. Discharge Plan Discharge Chief Complaint: Fall Clinical Impression: Contusion of forehead Qualifiers: Encounter type: initial encounter Qualified Code(s): S00.83XA - Contusion of other part of head, initial encounter Cervical strain Qualifiers: Encounter type: initial encounter Qualified Code(s): S16.1XXA - Strain of muscle, fascia and tendon at neck level, initial encounter Contusion of arm, left Qualifiers: Encounter type: initial encounter Qualified Code(s): S40.022A - Contusion of left upper arm, initial encounter Patient Disposition: Home, Self-Care Time of Disposition Decision: 12:47 Condition: Good Mode of Transportation: Private Vehicle Prescriptions / Home Meds: New ondansetron 4 mg tablet,disintegrating 4 mg PO Q6H PRN (Reason: nausea and vomiting) Qty: 10 0RF No Action clopidogrel 75 mg tablet 75 mg PO DAILY tramadol 50 mg tablet 25 mg PO Q6H PRN (Reason: pain) Qty: 10 0RF isosorbide mononitrate 30 mg tablet extended release 24 hr 30 mg PO DAILY omeprazole 40 mg capsule,delayed release(DR/EC) 40 mg PO DAILY citalopram 20 mg tablet 20 mg PO DAILY lisinopril 40 mg tablet 40 mg PO QPM rosuvastatin 20 mg tablet 20 mg PO DAILY alendronate 70 mg tablet 70 mg PO .weekly Rx Instructions: Monday cholecalciferol (vitamin D3) 25 mcg (1,000 unit) capsule 1,000 unit PO DAILY famotidine 40 mg tablet 40 mg PO DAILY Rx Instructions: HS nitroglycerin 0.4 mg tablet, sublingual 0.4 mg buccal Q5M PRN (Reason: chest pain) estradiol [Estrace] 0.01 % (0.1 mg/gram) cream 0.25 appful vaginal QWEEK tamsulosin [Flomax] 0.4 mg capsule 0.4 mg PO DAILY Qty: 30 1RF Print Language: Swedish Instructions: Muscle Strain (ED), Head Injury (ED), Contusion in Adults (ED), Cervical Sprain (ED), Facial Contusion (ED) Additional Instructions: Apply ice to forehead to help the swelling go down and for pain. Tylenol for pain as needed. Return for worsening symptoms. Referrals: Yulia Hudson NP [Primary Care Provider] - 1 week
[2024-10-22] MEDS: ONDANSETRON PF 4 MG/2 ML VIAL IV (12:43)
[2024-10-22 13:16] VITALS: BP 136/77; PULSE 84; O2SAT 98
== END 2024-10-22 13:26 | disposition home or self-care (01) ==
PROVIDERS: Emergency Provider Emergency Medicine
DX: S00.83XA Contusion of other part of head, initial encounter (principal); S16.1XXA Strain of muscle, fascia and tendon at neck level, initial encounter; S40.022A Contusion of left upper arm, initial encounter; Z98.51 Tubal ligation status; Z95.5 Presence of coronary angioplasty implant and graft; Z90.710 Acquired absence of both cervix and uterus; F17.210 Nicotine dependence, cigarettes, uncomplicated; W10.8XXA Fall (on) (from) other stairs and steps, initial encounter; Y93.89 Activity, other specified; Y92.038 Other place in apartment as the place of occurrence of the external cause; Y99.8 Other external cause status
CPT/HCPCS: 70450; 72125; 73030; 73080; 73110; 96374; 99285; J2405

== ENCOUNTER 2024-11-29 14:27 | Outpatient (OUT) | payer MEDICARE, SELFPAY ==
--- OUTSIDE RECORDS SUMMARY | 2024-11-05 12:30 | XMS_ITS ---
Author Name Auto Generated Organization [facility] Care Team Providers Care Pharmaceutical Sales Specialist Name Role Phone ANGLIM, NADIRA A Referring Unavailable ANGLIM, NADIRA A Primary Care Unavailable GIOVANNI BOLDEN Attending Unavailable ANGGHADA, NADIRA A Referring Unavailable SERVICES, [facility] Primary Care Unava ilable Elizabeth Lott Attending Unavailable Carye Elizabeth M Admitting Unavailable Anglim, Nadira Primary Care Unavailable ScbolanerHimanshu M Attending Unavailable ScovannerHimanshu M Admitting Unavailable ScovannerHimanshu M Admitting Unavailable NON STAFF Primary Care Unavailable Himanshu Borjas Attending Unavailable FERNANDO CASTELLON Referring Unavailable MELANIE MONROY Attending Unavailable AYMONCHOSONEALDI Primary Care Unavailable NKBACILIO-KIMBERLY, JASMIN Attending Unavail able Elizabeth Lott M. Attending Unavailable Carye Elizabeth M. Attending Unavailable Oren Elizabeth M. Referring Unavailable Elizabeth Lott M. Attending Unavailable Keila Lotthy M. Attending Unavailable ELIAZAR SHAH Primary Care Unavailable Venita Gibson Attending Unavailable [place] Toney Attending Unavailable NKANSAH-AMJUSTIN, JASMIN Attending Unavail able PROBLEMS DATE TYPE CONDITION / CODE ATTENDING STATUS [facility] 07/01/2024 Unknown Presence of kamaljit nary angioplasty implant and graft / Z95.5(ICD-10) [facility] 07/01/2024 Unknown Essential (prima ry) hypertension / I10(ICD-10) [facility] 07/01/2024 Unknown Hyperlipidemia, unspecified / E78.5(ICD-10) [facility] 07/01/2024 Unknown Nicotine depende nce, unspecified, uncomplicated / F17.200(ICD-10) [facility] 07/01/2024 Unknown Follow-up / FREETEXT(AOF) [facility] 05/31/2024 Unknown Diarrhea, unspec ified / R19.7(ICD-10) Himanshu Borjas [facility] 01/16/2024 Unknown Unspecified abdo mickie pain / R10.9(ICD-10) Himanshu Borjas [facility] 12/08/2023 Unknown Encounter for sc reening mammogram for malignant neoplasm of breast / Z12.31(ICD-10) NA [facility] PROCEDURES No Procedure Records Found RESULTS PATIENT EDUCATION Observed: 11/05/2024 7:14 PM Status: F Source: [facility] Patient Education Urology Kidney Stones Kidney stones are rock-like masses that form inside of the kidneys. Kidneys are organs that make pee (urine). A kidney stone may move into other parts of the urinary tract, including: ??? The tubes that connect the kidneys to the bladder (ureters). ??? The bladder. ??? The tube that carries urine out of the body (urethra). Kidney stones can cause very bad pain and can block the flow of pee. The stone usually leaves your body through your pee. A doctor may need to take out the stone. What are the causes? Kidney stones may be caused by: ??? Too much calcium in the body. This may be caused by too much parathyroid hormone in the blood. ??? Uric acid crystals in the bladder. The body makes uric acid when you eat certain foods. ??? Narrowing of one or both of the ureters. ??? A kidney blockage that you were born with. ??? Past surgery on the kidney or the ureters. What increases the risk? You are more likely to develop this condition if: ??? You have had a kidney stone in the past. ??? Other people in your family have had kidney stones. ??? You do not drink enough water. ??? You eat a diet that is high in protein, salt (sodium), or sugar. ??? You are very overweight (obese). What are the signs or symptoms? Symptoms of a kidney stone may include: ??? Pain in the side of the belly, right below the ribs. Pain usually spreads to the groin. ??? Needing to pee often or right away. ??? Pain when peeing. ??? Blood in your pee. ??? Feeling like you may vomit (nauseous). ??? Vomiting. ??? Fever and chills. How is this treated? Treatment depends on the size, location, and makeup of the kidney stones. The stones will often pass out of the body when you pee. You may need to: ??? Drink more fluid to help pass the stone. ? In some cases, you may be given fluids through an IV tube at the hospital. ??? Take medicine for pain. ??? Change your diet to help keep kidney stones from coming back. Sometimes, you may need: ??? A procedure to break up kidney stones using a beam of light (laser) or shock waves. ??? Surgery to remove the kidney stones. Follow these instructions at home: Medicines ??? Take faia-bsg-fwudbyd and prescription medicines only as told by your doctor. ??? Ask your doctor if the medicine prescribed to you requires you to avoid driving or using machinery. Eating and drinking ??? Drink enough fluid to keep your pee pale yellow. ? You may be told to drink at least 8?10 glasses of water each day. This will help you pass the stone. ??? If told by your doctor, change your diet. You may be told to: ? Limit how much salt you eat. ? Eat more fruits and vegetables. ? Limit how much meat, poultry, fish, and eggs you eat. ??? Follow instructions from your doctor about what you may eat and drink. General instructions ??? Collect pee samples as told by your doctor. You may need to collect a pee sample: ? 24 hours after a stone comes out. ? 8?12 weeks after a stone comes out, and every 6?12 months after that. ??? Strain your pee every time you pee. Use the strainer that your doctor recommends. ??? Do not throw out the stone. Keep it so that it can be tested by your doctor. ??? Keep all follow-up visits. You may need X-rays and ultrasounds to make sure the stone has come out. How is this prevented? To prevent another kidney stone: ??? Drink enough fluid to keep your pee pale yellow. This is the best way to prevent kidney stones. ??? Eat healthy foods. ??? Avoid certain foods as told by your doctor. You may be told to eat less protein. ??? Stay at a healthy weight. Where to find more information ??? National Kidney Foundation (NKF): kidney.org ??? U[employer] Care Foundation (UCF): urologyhealth.org Contact a doctor if: ??? You have pain that gets worse or does not get better with medicine. Get help right away if: ??? You have a fever or chills. ??? You get very bad pain. ??? You get new pain in your belly. ??? You faint. ??? You cannot pee. This information is not intended to replace advice given to you by your health care provider. Make sure you discuss any questions you have with your health care provider. Document Revised: 02/17/2023 Document Reviewed: 02/17/2023 [employer] Patient Education ? 2023 [employer]. UROLOGY OFFICE/CLINIC NOTE Observed: 12:30 PM Status: F Source: [facility] Urology Office/Clinic Note Chief Complaint 1 month PO HPI Staff 69 year old female patient here for 1 month follow up from Right extracorporeal shockwave lithotripsy 10/02/24 KML. RAFAEL and KUB done 10/15/24. Previous dx: kidney stones, vaginal atrophy, UTI sxs, frequency of urination, personal hx of kidney stones, female bladder prolapse. BBSQ: 20 Denies dysuria, denies hematuria. Has been having lower right back pain that radiates to right lower abdominal. History of Present Illness I have reviewed and verified the staff HPI to be accurate for this encounter. Review of Systems PHQ Score Initial Depression Screen Score: 0 SCORE no fever, chills, malaise, myalgia. no abdominal pain, nausea, vomiting. Physical Exam Vitals & Measurements T: 36.6 ???C(Temporal Artery) HR: 64(Peripheral) RR: 16 BP: 134/76 HT: 152 cm HT: 60 in WT: 126.325 lb WT: 57.3 kg BMI: 24.8 General: Well developed, well nourished, in no acute distress. Assessment/Plan 69 year old female patient who presents today for 1 month follow up s/p 1. Kidney stones (N20.0: Calculus of kidney) KUB 03/18/23 - 3 clusters of calcification projecting over the Lt kidney and 1 cluster of calcification projecting over the Rt kidney [facility] ER 03/27/23 w/ c/o of blood in urine & lower abdominal as [...] introitus S/p Cysto w/Lt Stent Removal 07/24/23 S/p R ESWL 10/02/24 KUB 10/15/24 - Left nephrolithiasis, measuring up to 4 mm. No bladder or ureteral stone. RAFAEL 10/15/24 - Largest right stone inferior pole measures up to 10 mm. Echogenic focus of midportion of left kidney, measures up to 15 mm. No hydro. UA today w/ small blood only Patient underwent R ESWL for 7 mm right lower pole stone on 10/02/24 by ELAINE. Today, she presents for 1 month follow up since procedure. States since her ESWL procedure, she has been experiencing persistent R flank pain that radiates to the front of her abdomen. She denies passing any stone fragments. UA today w/ small blood. Patient denies gross hematuria. Reviewed RAFAEL/KUB with patient. Discussed w/pt that RAFAEL shows right stone up to 10 mm, but likely residual stone fragments. No hydro. KUB with left nephrolithiasis. Given R flank pain and no passage of stone fragments, recommend obtaining CT abd/pelvis w/o contrast to further evaluate for ureteral stone and stone burden. She reports she recently went to [facility] ER 10/22/[address] and CT imaging obtained, but I am only able to see CT head and C-spine mentioned in ER note. Therefore, will obtain CT abd/pelvis w/o contrast at [facility] per pt request. She is agreeable to plan. All questions answered. Also discussed general stone prevention at today's visit including increasing water intake to make 2.5 L UOP/day. Add lemon/ekuk. Counseled pt on dietary modifications (increase fruits/vegetables and limit animal protein). -Obtain CT abd/pelvis w/o contrast at [facility], call pt w/ results -If no ureteral stone or significant stone burden present, then patient would like to complete metabolic work-up -F/U pending completion of CT scan, call our office sooner if needed -ER precautions for fever, chills, NV, severe flank pain or inability to urinate Ordered: Body Mass Index (BMI) documented 3008F CT Abdomen/Pelvis w/o Contrast Depression Screening Negative 3352F Influenza immunization status assessed 1030F Medication list documented in medical record 1159F Most recent diastolic blood pressure <80 mm Hg 3078F Patient screen for fall risk: no falls in last year or 1 fall with no injury in last year 1101F Review of all meds by a prescribing practitioner or clinical pharmacist documented in EHR 1160F Screened for tobacco use AND received tobacco cessation intervention 4004F Systolic BP 130-139 mm Hg (Most Recent) 3075F Urnls Dip Stick Auto w/o Microscopy POC [id number] 2. Right flank pain (R10.9: Unspecified abdominal pain) -See #1 -Obtain CT abd/pelvis w/o con at [facility] Ordered: CT Abdomen/Pelvis w/o Contrast 3. Personal history of kidney stones (Z87.442: Personal history of urinary calculi) Previously seen by PRW due to Kidney Stones. S/P Lt ESWL 03/05/09. -See #1 4. Female bladder prolapse (N81.10: Cystocele, unspecified) S/p vaginal hysterectomy 2018. Still has ovaries. S/p bladder sling with mesh. Unsure of date. 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 S/p Cysto, L Ureteroscopy, stone extraction, stent placement 07/12/23 - grade III cystocele to level of introitus -Evaluated by KNNyla w/ plans for robotic sacrocolpopexy in January 2025 per patient. 5. Frequency of urination (R35.0: Frequency of micturition) BBSQ 20 (19) PVR 07/24/24 - 14 mL. Last note, pt having urinary frequency every 2-3 hours. Pt informed that cystocele likely contributing. Reports frequency and urgency also worse w/ kidney stones. Denies bothersome sxs today. Previously has declined medications. -Cont symptomatic monitoring 6. Vaginal atrophy (N95.2: Postmenopausal atrophic vaginitis) Patient still taking Estrogen cream. Denies bothersome SEs. Does not need refills. -Cont Estrace cream 7. Renal cyst (N28.1: Cyst of kidney, acquired) RAFAEL 04/30/24 - stable 2.2 cm slightly complex right renal cyst. RAFAEL 10/15/24 - similar mildly complex right renal cyst, likely benign 8. 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 Elevated risk of periop complications. Follow-up With When Contact Information Venita Gibson PA-C, URL [phone] Additional Instructions: F/U pending completion of CT abd/pelvis Patient Education Kidney Stones, Tqvw-mo-Zfqk Problem List/Past Medical History Ongoing Anticoagulant long-term use Antiplatelet or antithrombotic long-term use CAD (coronary artery disease) Female bladder prolapse Frequency of urination Hyperlipidemia Hypertension Kidney stones Personal history of kidney stones Renal cyst Right flank pain Smoker UTI (urinary tract infection) UTI symptoms Vaginal atrophy Historical Anticoagulant allergy Procedure/Surgical History Extracorporeal shockwave lithotripsy (10/02/2024), Removal of ureteral stent (07/24/2023), Ureteroscopy (07/12/2023), ESWL of kidney (05/24/2023), Stented artery (01/07/2023), Hysterectomy (2019), ESWL of kidney (03/05/2009), ESWL of kidney (01/22/2009), ESWL of kidney (09/28/2006), Urodynamics (12/13/2005), ESWL of kidney (12/01/2005), Cystoscopy (11/25/2005), Bladder care. Medications alprazolam, Oral aspirin 81 mg oral capsule, Oral, q24hr citalopram 20 mg Tab, Oral, Daily Estrace 0.1 mg/g Cream, See Instructions, 3 refills lisinopril 40 mg Tab, Oral, Daily Plavix 75 mg Tab, Oral, Daily rosuvastatin 20 mg Tab, Oral, Daily Allergies No Known Medication Allergies Social History Alcohol Never., 07/24/2024 Substance Abuse Never., 07/24/2024 Tobacco 4 or less cigarettes(less than 1/4 pack)/day in last 30 days Tobacco Use:. Never Smokeless Tobacco Use:. Cigarettes, Yes, 11/05/2024 Immunizations Vaccine Date Status Comments diphtheria/pertussis, acel/tetanus adult 09/30/2022 Recorded SARS-CoV-2 (COVID-19) mRNA BNT-162b2 vax 03/12/2021 Recorded 2024-08-27: TPV65 SARS-CoV-2 (COVID-19) mRNA BNT-162b2 vax 02/19/2021 Recorded 2024-08-27: TPV65 Lab Results Ambulatory Point of Care Results Bilirubin Urine Dipstick: Negative (11/05/24 12:46:00) Blood Urine Dipstick: 1+ Small (11/05/24 12:46:00) Glucose Urine Dipstick: Negative (11/05/24 12:46:00) Ketones Urine Dipstick: Negative (11/05/24 12:46:00) Leukocytes Urine Dipstick: Negative (11/05/24 12:46:00) Nitrite Urine Dipstick: Negative (11/05/24 12:46:00) Protein Urine Dipstick: 1+ (30 mg/dl) (11/05/24 12:46:00) Specific [place] Urine Dipstick: 1.015 (11/05/24 12:46:00) Urine Appearance Urine Dipstick: Clear (11/05/24 12:46:00) Urine Color Urine Dipstick: Yellow (11/05/24 12:46:00) Urobilinogen Urine Dipstick: Normal 0.2-1 EU/dl (11/05/24 12:46:00) pH Urine Dipstick: 7.5 (11/05/24 12:46:00) Result Comment: Electronical ly Signed By: Paige BURTON, Venita\.br\Date and Time Signed: 11/05/24 19:28 EDT URINE CULTURE Observed: 09/20/2024 3:15 PM Status: F Source: [facility] 20,000 colonies/ml mixed bacterial skin contaminants 2 Days PERFORMED BY: [place] [address] PATHOLOGIST MANAGED CARE DIRECTOR NAKIA RUBIN M.D. Performed By: #### CUU #### [address] AMBULATORY VISIT SUMMARY Observed: 08/27 3:07 PM Status: F Source: [facility] Ambulatory Visit Summary BELLA COY :1955 Visit Date:08/27/2024 Ambulatory Visit Instructions Your Diagnosis Female bladder prolapse Kidney stones Vaginal atrophy Antiplatelet or antithrombotic long-term use Smoker Your Care Team Attending Physician - JASMIN BHANDARI MD Primary Care Physician - NADIRA SUBRAMANIAN CNP This Is Your Medications List estradiol [...] provider tells you to. Quit right away ??? Quit smoking completely, instead of gradually reducing how much you smoke over a period of time. Stopping smoking right away may be more successful than gradually quitting. ??? Attend in-person counseling to help you build problem-solving skills. You are more likely to succeed in quitting if you attend counseling sessions regularly. Even short sessions of 10 minutes can be effective. Take medicine You may take medicines to help you quit smoking. Some medicines require a prescription. You can also purchase yrbb-ewe-idqliep medicines. Medicines may have nicotine in them to replace the nicotine in cigarettes. Medicines may: ??? Help to stop cravings. ??? Help to relieve withdrawal symptoms. Your health care provider may recommend: ??? Nicotine patches, gum, or lozenges. ??? Nicotine inhalers or sprays. ??? Non-nicotine medicine that you take by mouth. Find resources Find resources and support systems that can help you quit smoking and remain smoke-free after you quit. These resources are most helpful when you use them often. They include: ??? Online chats with a counselor. ??? Telephone quitlines. ??? Printed self-help materials. ??? Support groups or group counseling. ??? Text messaging programs. ??? Mobile phone apps or applications. Use apps that can help you stick to your quit plan by providing reminders, tips, and encouragement. Examples of free services include Quit Guide from the CDC and smokefree.gov What can I do to make it easier to quit? Reach out to your family and friends for support and encouragement. Call telephone quitlines, such as 6-775-BJRPElephant.isNOW, reach out to support groups, or work with a counselor for support. ??? Ask people who smoke to avoid smoking around you. ??? Avoid places that trigger you to smoke, such as bars, parties, or smoke-break areas at work. ??? Spend time with people who do not smoke. ??? Lessen the stress in your life. Stress can be a smoking trigger for some people. To lessen stress, try: ? Exercising regularly. ? Doing deep-breathing exercises. ? Doing yoga. ? Meditating. What benefits will I see if I quit smoking? Over time, you should start to see positive results, such as: ??? Improved sense of smell and taste. ??? Decreased coughing and sore throat. ??? Slower heart rate. ??? Lower blood pressure. ??? Clearer and healthier skin. ??? The ability to breathe more easily. ??? Fewer sick days. Summary ??? Quitting smoking can be very challenging. Do not get discouraged if you are not successful the first time. Some people need to make many attempts to quit before they achieve long-term success. ??? When you decide to quit smoking, create a plan to help you succeed. ??? Quit smoking right away, not slowly over a period of time. ??? Find resources and support systems that can help you quit smoking and remain smoke-free after you quit. This information is not intended to replace advice given to you by your health care provider. Make sure you discuss any questions you have with your health care provider. Document Revised: 06/17/2022 Document Reviewed: 06/17/2022 [employer] Patient Education ??? 2023 [employer] How to Use a Vaginal Pessary A [...] Follow these instructions at home: ??? Take vnyj-qfg-eoixrda and prescription medicines only as told by [...] provider. Document Revised: 12/24/2020 Document Reviewed: 12/24/2020 [employer] Patient Education ??? 2023 [employer]. UROLOGY OFFICE/CLINIC NOTE Observed: 2:17 PM Status: F Source: [facility] Urology Office/Clinic Note Chief Complaint follow up [...] with voice recognition artificial intelligence software, specifically Liquiteria, Smart[employer]abitat and or Springr. Substitutions may have occurred due to the inherent limitations of voice recognition and artificial intelligence software. 1. Female bladder prolapse (N81.10: Cystocele, unspecified) S/p vaginal hysterectomy 2018. Still has ovaries. S/p bladder sling with mesh. Unsure of date. 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 ER 03/27/23 due to blood in [...] 4. Antiplatelet or antithrombotic long-term use (Z79.02: oysterman (current) use of antithrombotics/antiplatelets) Plavix. Has a heart stent. Elevated risk of periop complications. 5. Smoker (F17.200: Nicotine dependence, unspecified, uncomplicated) Pt states she has been cutting back. Pt states I'm trying . Cessation encouraged. Patient presents with a stage III anterior prolapse. I discussed surgical options including transvaginal repair with chuloonawick tissue, abdominal sacrocolpopexy and patient opts for the latter. She was counseled on the risk, benefits, alternatives and she would like to proceed. I discussed with her in detail about the surgery, side effect profile and patient communicated full understanding. Will schedule the surgery for October. With 1 night hospital stay. Follow-up With When Contact Information THONY BOB, JOCELYN CASTELLANOS Additional Instructions: Schedule robotic-assisted sacrocolpopexy in October Patient Education Steps to Quit Smoking How to Use a Vaginal Pessary ISary, personally scribed for Dr. Bess on 08/27/2024 14:17:35. . Documentation recorded by the scribe, Sary Navarro, accurately reflects the services(s) I performed and decisions made by me. Authenticated by Dr. Bhandari on 08/27/2024 14:39:32. Problem List/Past Medical History Ongoing Anticoagulant long-term use Antiplatelet or antithrombotic long-term use CAD (coronary artery disease) Female bladder prolapse Frequency of urination Hyperlipidemia Hypertension Kidney stones Personal history of kidney stones Smoker UTI (urinary tract infection) UTI symptoms Vaginal atrophy Historical Anticoagulant allergy Procedure/Surgical History Removal of ureteral stent (07/24/2023), Ureteroscopy (07/12/2023), ESWL of kidney (05/24/2023), Stented artery (01/07/2023), Hysterectomy (2019), ESWL of kidney (03/05/2009), ESWL of kidney (01/22/2009), ESWL of kidney (09/28/2006), Urodynamics (12/13/2005), ESWL of kidney (12/01/2005), Cystoscopy (11/25/2005), Bladder care. Medications alprazolam, Oral aspirin 81 mg oral capsule, Oral, q24hr citalopram 20 mg Tab, Oral, Daily Estrace 0.1 mg/g Cream, See Instructions, 3 refills lisinopril 40 mg Tab, Oral, Daily Plavix 75 mg Tab, Oral, Daily rosuvastatin 20 mg Tab, Oral, Daily Allergies No Known Medication Allergies Social History Alcohol Never., 07/24/2024 Substance Abuse Never., 07/24/2024 Tobacco 4 or less cigarettes(less than 1/4 pack)/day in last 30 days Tobacco Use:., 08/27/2024 Immunizations Vaccine Date Status Comments diphtheria/pertussis, acel/tetanus adult 09/30/2022 Recorded SARS-CoV-2 (COVID-19) mRNA BNT-162b2 vax 03/12/2021 Recorded 2024-08-27: TPV65 SARS-CoV-2 (COVID-19) mRNA BNT-162b2 vax 02/19/2021 Recorded 2024-08-27: TPV65 Result Comment: Electronical ly Signed By: JASMIN BHANDARI MD\.br\Date and Time Signed: 08/27/24 14:39 EST\.br\Electronically Co-Signed By: Sary Navarro\.br\Date and Time Co-Signed: 08/27/24 14:18 EST PATIENT EDUCATION Observed: 08/27/2024 2:14 PM Status: C Source: [facility] Patient Education Obstetrics and Gynecology How to [...] Follow these instructions at home: ??? Take tcin-ucd-ltcfmpm and prescription medicines only as told by [...] provider. Document Revised: 12/24/2020 Document Reviewed: 12/24/2020 [employer] Patient Education ? 2023 [employer]Pulmonary Medicine Steps to Quit Smoking Smoking tobacco [...] provider tells you to. Quit right away ??? Quit smoking completely, instead of gradually reducing how much you smoke over a period of time. Stopping smoking right away may be more successful than gradually quitting. ??? Attend in-person counseling to help you build problem-solving skills. You are more likely to succeed in quitting if you attend counseling sessions regularly. Even short sessions of 10 minutes can be effective. Take medicine You may take medicines to help you quit smoking. Some medicines require a prescription. You can also purchase umvv-qjq-qzrqlna medicines. Medicines may have nicotine in them to replace the nicotine in cigarettes. Medicines may: ??? Help to stop cravings. ??? Help to relieve withdrawal symptoms. Your health care provider may recommend: ??? Nicotine patches, gum, or lozenges. ??? Nicotine inhalers or sprays. ??? Non-nicotine medicine that you take by mouth. Find resources Find resources and support systems that can help you quit smoking and remain smoke-free after you quit. These resources are most helpful when you use them often. They include: ??? Online chats with a counselor. ??? Telephone quitlines. ??? Printed self-help materials. ??? Support groups or group counseling. ??? Text messaging programs. ??? Mobile phone apps or applications. Use apps that can help you stick to your quit plan by providing reminders, tips, and encouragement. Examples of free services include Quit Guide from the CDC and smokefree.gov What can I do to make it easier to quit? Reach out to your family and friends for support and encouragement. Call telephone quitlines, such as 9-861-UCEN-NOW, reach out to support groups, or work with a counselor for support. ??? Ask people who smoke to avoid smoking around you. ??? Avoid places that trigger you to smoke, such as bars, parties, or smoke- break areas at work. ??? Spend time with people who do not smoke. ??? Lessen the stress in your life. Stress can be a smoking trigger for some people. To lessen stress, try: ? Exercising regularly. ? Doing deep-breathing exercises. ? Doing yoga. ? Meditating. What benefits will I see if I quit smoking? Over time, you should start to see positive results, such as: ??? Improved sense of smell and taste. ??? Decreased coughing and sore throat. ??? Slower heart rate. ??? Lower blood pressure. ??? Clearer and healthier skin. ??? The ability to breathe more easily. ??? Fewer sick days. Summary ??? Quitting smoking can be very challenging. Do not get discouraged if you are not successful the first time. Some people need to make many attempts to quit before they achieve long-term success. ??? When you decide to quit smoking, create a plan to help you succeed. ??? Quit smoking right away, not slowly over a period of time. ??? Find resources and support systems that can help you quit smoking and remain smoke-free after you quit. This information is not intended to replace advice given to you by your health care provider. Make sure you discuss any questions you have with your health care provider. Document Revised: 06/17/2022 Document Reviewed: 06/17/2022 [email or web address] Patient Education ? 2023 [employer] PATIENT [place] [facility] [place] Observed: 08/13/2024 3:29 PM Status: F Source: [facility] Patient Letter [facility] [place] August 13, 2024 BELLA COY [address] [place] [address] : 1955 Dear _ , You missed [...] select option 3. Sincerely, [facility] [address] [place] [address] PROGRESS Observed: 08/05/2024 11:27 AM Status: COMPLETED Source: [facility] HNO ID: [id number] Author: MELANIE MONROY MD Service: ? Author Type: Physician [...] concerns addressed Pt appreciative of the care Melanie Monroy MD I spent 30 minutes in the visit, with more than 50% of the total pybx-nd-jcac time of the visit in counseling / coordination of care. CNOV Observed: 08/05/2024 11:00 AM Status: COMPLETED Source: [facility] Office Visit ([facility]) BELLA COY ([id number]) 1955 F Date Time Provider Department 08/05/24 11:00 AM MELANIE MONROY [facility] During your visit today, we recorded the following information about you: Temperature Pulse Blood pressure Weight 97 degrees 56/minute 108/45 53.5 kg Melanie Monroy MD 08/05/2024 11:30 AM Signed Consultation [...] concerns addressed Pt appreciative of the care Melanie Monroy MD I spent 30 minutes in the visit, with more than 50% of the total amzs-iz-gqod time of the visit in counseling / coordination of care. Referring Provider: FERNANDO CASTELLON [[id number]] Allergies As of Date: 08/05/2024 (No Known [...] 10/06/2014 Dehydration [E86.0] 10/06/2014 Encounter Status:Closed by MELANIE MONROY on 08/05/24 UROLOGY OFFICE/CLINIC NOTE Observed: 9:50 AM Status: F Source: [facility] Urology Office/Clinic Note Chief Complaint f/u w/ [...] [facility] CT AP w con [place]16[place] [facility] [place] KUB/RAFAEL 04/30/24 [facility]. Dysuria: _at times Incomplete [...] RUP SSD 8-10cm, all HU ~750 KUB/RAFAEL 10/22/24 - 7mm stone projecting over the pole [...] UTI symptoms (R39.9: Unspecified symptoms and signs involving the genitourinary system) NEG C&S 03/27/23 *Tx'd w/Keflex 500mg TID x7days UA today shows mod blood. denies any UTI sxs today. 5. Personal history of kidney stones (Z87.442: Personal history of urinary calculi) Last seen in our office 02/23/09 by PRW due to Kidney Stones. S/P Lt ESWL 03/05/09. -See #1 6. Female bladder prolapse (N81.10: Cystocele, unspecified) Patient has h/o bladder sling surgery, states she feels her bladder is prolapsing again. Prior PERSONNEL GENERALIST MANAGER left, has not seen a new one. PVR 14cc Grade 3 Cystocele - at introitus during stone treatment above. Discussed indications for repeat intervention. Pt is having pain and bother by it. Pt states that she would like to have a procedure done rather than pessary. Will discuss case with KNA to see if surgical candidate. If not, will refer to new PERSONNEL GENERALIST MANAGER. 7. Anticoagulant long-term use (Z79.01: alf (current) use of anticoagulants) Plavix. Elevated risk of periop complications. Will need held prior to ESWL. I spent 42 minutes today with the patient: reviewing tests in preparation to see and discuss them with the patient, documenting clinical information in the electronic health records, and care coordination. Time was spent performing a medical exam and evaluation, counseling and educating the patient, and ordering medications, tests, and procedures in caring for the patient. Follow-up With When Contact Information Oren BOB, Elizabeth Brown, JOCELYN, URO Additional Instructions: Schedule ESWL Patient Education Dietary Guidelines to Help Prevent Kidney Stones Shahana Sandoval, personally scribed for Dr. Lott on 07/24/2024 09:50:39. . Documentation recorded by the scribeShahana, accurately reflects the services(s) I performed and decisions made by me. Authenticated by Dr. Lott on 07/24/2024 10:05:43. Problem List/Past Medical History Ongoing Anticoagulant long-term use CAD (coronary artery disease) Female bladder prolapse Frequency of urination Hyperlipidemia Hypertension Kidney stones Personal history of kidney stones UTI (urinary tract infection) UTI symptoms Vaginal atrophy Historical Anticoagulant allergy Procedure/Surgical History Removal of ureteral stent (07/24/2023), Ureteroscopy (07/12/2023), ESWL of kidney (05/24/2023), Stented artery (01/07/2023), ESWL of kidney (03/05/2009), ESWL of kidney (01/22/2009), ESWL of kidney (09/28/2006), Urodynamics (12/13/2005), ESWL of kidney (12/01/2005), Cystoscopy (11/25/2005), Bladder care. Medications alprazolam, Oral aspirin 81 mg oral capsule, Oral, q24hr citalopram 20 mg Tab, Oral, Daily Estrace 0.1 mg/g Cream, See Instructions, 3 refills lisinopril 40 mg Tab, Oral, Daily Plavix 75 mg Tab, Oral, Daily rosuvastatin 20 mg Tab, Oral, Daily Allergies No Known Medication Allergies Social History Alcohol Never., 07/24/2024 Substance Abuse Never., 07/24/2024 Tobacco 4 or less cigarettes(less than 1/4 pack)/day in last 30 days Tobacco Use:., 07/24/2024 Lab Results Ambulatory Point of Care Results Bilirubin Urine Dipstick: Negative (07/24/24 09:09:00) Blood Urine Dipstick: 2+ Moderate (07/24/24 09:09:00) Glucose Urine Dipstick: Negative (07/24/24 09:09:00) Ketones Urine Dipstick: Negative (07/24/24 09:09:00) Leukocytes Urine Dipstick: Negative (07/24/24 09:09:00) Nitrite Urine Dipstick: Negative (07/24/24 09:09:00) Protein Urine Dipstick: Negative (07/24/24 09:09:00) Specific [place] Urine Dipstick: >=1.030 (07/24/24 09:09:00) Urine Appearance Urine Dipstick: Clear (07/24/24 09:09:00) Urine Color Urine Dipstick: Yellow (07/24/24 09:09:00) Urobilinogen Urine Dipstick: Normal 0.2-1 EU/dl (07/24/24 09:09:00) pH Urine Dipstick: 5.5 (07/24/24 09:09:00) Result Comment: Electronical ly Signed By: Elizabeth Lott MD\.br\Date and Time Signed: 07/24/24 10:06 EST\.br\Electronically Co-Signed By: Shahana Mazariegos\.br\Date and Time Co-Signed: 07/24/24 09:51 EST PATIENT EDUCATION Observed: 07/24/2024 9:48 AM Status: F Source: [facility] Patient Education Nephrology Dietary Guidelines to Help [...] to less than 1,500 mg a day. ??? Choose foods with calcium for each meal and snack. Try to eat about 300 mg of calcium at each meal. Foods that contain 200?500 mg of calcium a serving include: ? 8 oz (237 mL) of milk, ipsnwhs-xfulmdcbqsgf-qoghe milk, and calcium- fortifiedfruit juice. Calcium-fortified means [...] to add their own salt to taste. ??? Use [...] Spinach (cooked), rhubarb, beets, sweet potatoes, and Samoan chard. ? Peanuts. ? Potato chips, lithuanian fries, and baked potatoes with skin on. ? Nuts and nut products. ? Chocolate. ??? If you regularly take a diuretic medicine, make sure to eat at least 1 or 2 servings of fruits or vegetables that are high in potassium each day. These include: ? Avocado. ? Banana. ? Ozark, prune, carrot, or tomato juice. ? Baked potato. ? Cabbage. ? Beans and split peas. Lifestyle ??? Drink enough fluid to keep your urine pale yellow. This is the most important thing you can do. Spread your fluid intake throughout the day. ??? [...] fish oil, or vitamin B6. ??? Take gorv-qsp-pdzylhl and prescription medicines only as told by [...] Contact a dietitian for more information. Summary ??? Kidney stones are deposits of minerals and salts that form inside your kidneys. ??? You can lower your risk of kidney stones by making changes to your diet. ??? The most important thing you can do is drink enough fluid. Drink enough fluid to keep your urine pale yellow. ??? Talk to your dietitian about how much calcium you should have each day, and eat less salt and animal protein as told by your dietitian. This information is not intended to replace advice given to you by your health care provider. Make sure you discuss any questions you have with your health care provider. Document Revised: 10/06/2022 Document Reviewed: 10/06/2022 [employer] Patient Education ? 2023 [employer] CLOSTRIDIUM DIFFICILE Collected: 05/31/2024 11:30 AM Status: F Source: [facility] TYPE CODE TESTS RESULT OUT OF RANGE REFERENCE UNITS LAB CDTRES Clostridium Difficile Negative Negative Result Comment: Testing perf ormed by RT-PCR PERFORMED BY: [place] [address] PATHOLOGIST MANAGED CARE DIRECTOR NAKIA RUBIN M.D. Performed By: #### GIARDIA, STCYRPTOAG #### [facility] , #### ENT BACT PANEL, OVP, CDT #### [address] STOOL BACTERIAL PANEL Collected: 05/31/2024 11:30 AM Status: F Source: [facility] TYPE CODE TESTS RESULT OUT OF RANGE REFERENCE UNITS LAB ENTB SHIGELLA S Shigella Species Negative Negative Result Comment: Shigella sp. test includes Shigella species and Enteroinvasive E. coli (EIEC). LAB ENTB SHIGA TOX Shiga Toxin (E coli O157+oth) Negative Negative LAB ENTB CAMPYLOBAC Campylobacter Negative Negative Result Comment: Campylobacte r test includes C. jejuni and C. coli. LAB ENTB SALMON SPE Salmonella Species Negative Negative Result Comment: Testing perf ormed by RT-PCR PERFORMED BY: [place] [address] PATHOLOGIST MANAGED CARE DIRECTOR NAKIA RUBIN M.D. Performed By: #### GIARDIA, STCYRPTOAG #### [facility] , #### ENT BACT PANEL, OVP, CDT #### [address] OVA AND PARASITE PANEL Collected: 05/31/2024 11:30 AM Status: F Source: [facility] TYPE CODE TESTS RESULT OUT OF RANGE REFERENCE UNITS LAB ENTP GIARD MEZA Giardia lamblia Negative Negative LAB ENTP CRYPTOSPOR Cryptosporidium (C.hominis+par Negative Negative Result Comment: Cryptosporid ium test includes C. hominis and C. parvum. LAB ENTP ENT HISTOL Entamoeba histolytica Negative Negative Result Comment: Testing perf ormed by RT-PCR PERFORMED BY: [place] [address] PATHOLOGIST MANAGED CARE DIRECTOR NAKIA RUBIN M.D. Performed By: #### GIARDIA, STCYRPTOAG #### [facility] , #### ENT BACT PANEL, OVP, CDT #### [address] CRYPTOSPORIDIUM ANTIGEN STOOL Collected: 05/31/2024 1 1:30 AM Status: F Source: [facility] TYPE CODE TESTS RESULT OUT OF RANGE REFERENCE UNITS LAB STCYRPTOAG Cryptosporidium Antigen Stool Negative Negative Performed By: #### GIARDIA, STCYRPTOAG #### [facility] , #### ENT BACT PANEL, OVP, CDT #### [place] [id number] GIARDIA LAMBLIA AG EIA STOOL Collected: 05/31/2024 11:30 AM Status: F Source: [facility] TYPE CODE TESTS RESULT OUT OF RANGE REFERENCE UNITS LAB GIARDIA Giardia Lamblia Ag EIA Stool Negative Negative Result Comment: Performed at : [facility] [address] [id number] Event Services Manager: Nehemias Pollard PhD, Phone: [phone] PERFORMED BY: [place] [address] PATHOLOGIST MANAGED CARE DIRECTOR NAKIA RUBIN M.D. Performed By: #### GIARDIA, STCYRPTOAG #### [facility] , #### ENT BACT PANEL, OVP, CDT #### [address] CNPN Observed: 05/31/2024 12:00 AM Status: COMPLETED Source: [facility] Telephone ([facility]) BELLA COY ([id number]) 1955 F Date Time Provider Department 05/31/24 MELANIE MONROY [facility] During your visit today, we recorded the [...] Encounter Status:Closed by COMPA TAVARES on 05/31/24 CT ABDOMEN PELVIS W CON Observed: 2023 5:42 PM Status: COMPLETED Source: [facility] [place] [address] CT Scan Report Signed Patient: Bella Coy MR#: [id number] : 1955 Acct:[id number] Age/Sex: 68 / F ADM Date: 01/16/24 Loc: CT Room: Type: [facility] Attending Dr: Himanshu Borjas APRN Copies [...] Uterus has been removed. No adnexal mass.] Peritoneum/Retroperitoneum:No free air, free fluid or lymphadenopathy.[ Abd wall/Bones:Abdominal wall demonstrates no acute findings. Osseous structures demonstrate degenerative change.[ CT/CT abdomen pelvis w con IMPRESSION: Bilateral nephrolithiasis. No obstructive uropathy. No acute process. Impression dictated by: Dallas Lowe Jr., D.O.01/16/2024 5:44 PM Dictation Location: [place] [address] Transcribed By: [facility] 01/16/241743 Dictated By: Dallas Lowe Jr, DO 01/16/241741 Signed By: <Electronically signed by Dallas Lowe Jr, DO in OV> 01/16/241743 BLOOD UREA NITROGEN Collected: 01/16/2024 2:[address] atus: F Source: [facility] TYPE CODE TESTS RESULT OUT OF RANGE REFERENCE UNITS LAB BUN Blood Urea Nitrogen 15 Normal 7-25 mg/dL Performed By: #### VERONIKA CHINO N #### [address] CREATININE Collected: 01/16/2024 2:54 PM Status: F Source: [facility] TYPE CODE TESTS RESULT OUT OF RANGE REFERENCE UNITS LAB CREATT Creatinine 0.84 Normal 0.60-1.20 mg/dL LAB GFReNR Estimated GFR > 60.0 Result Comment: PERFORMED BY : [place] [address] PATHOLOGIST MANAGED CARE DIRECTOR TONY WONG M.D. Performed By: #### VERONIKA CHINO N #### [address] MAMM SCREENING BILATERAL W CAD Observed: 12/08/2023 3:15 PM Status: COMPLETED Source: [facility] MAMM SCREENING BILATERAL W C AD EXAM: MAMM SCREENING BILATERAL W CAD, 12/08/2023 [...] 1:24 PM 1 b MAMM 1 YR ALLERGIES DATE TYPE / CODE NAME / CODE REACTION SEVERITY SOURCE 09/10/2024 Drug Allergy/281082535(SNO MED CT) No Known Allergies/Y3751770 88(RXNORM) Unknown [facility] Miscellaneous Allergy/769261999(SNO MED CT) No Known Medication Allergies [facility] Drug Class/988100435(SNOME D CT) NO KNOWN ALLERGIES [facility] Drug Class/706581532(SNOME D CT) NO KNOWN ALLERGIES [facility] ENCOUNTERS ADMIT/DISCHARGE ACCOUNT NUMBER ADMITTING ENCOUNTER CLASS LOCATION SOURCE 11/05/2024/11/06/19 [id number] Ambulatory [place] [place] : CD:[id number] [facility] 10/02/2024/10/03/19 25 [id number] Ambulatory CD:[id number]:CD :[id number] [facility] 09/20/2024/09/21/19 25 [id number] Elizabeth Lott [facility] 08/27/2024/08/27/19 25 [id number] Ambulatory [place]: Exam 4 [facility] 08/13/2024/08/13/19 25 [id number] Ambulatory [place] [facility] 08/05/2024/08/05/19 25 [id number] [facility] 07/24/2024 [id number] Ambulatory CD:[id number]:CD :[id number] [facility] 07/24/2024/07/24/19 25 [id number] Ambulatory [place]:[facility] [place] : Exam 1 [facility] 07/01/2024/07/01/20 24 [id number] Ambulatory Buildin 4 [facility] 05/31/2024/05/31/20 24 [id number] Himanshu Borjas [facility] 01/30/2024/01/30/20 24 [id number] Ambulatory EU [place]:EU [place] [facility] 01/24/2024/01/24/20 24 [id number] Ambulatory EU [place]:EU [facility] 01/16/2024/01/16/20 24 [id number] Himanshu Borjas [facility] 12/08/2023/12/08/19 24 [id number] Ambulatory Building:PF _MAMM [facility] 02/01/2023 [id number] [facility] PAYERS ENCOUNTER GUARANTOR PAYER SUBSCRIBER SOURCE 11/05/2024 BELLA SANTOROB: 9531-09-90KY [address]: ~~([phone] (HP) Primary Insurance:HUMANAPolicy Number: [id number] Date:[id number] [address]TY: BELLA L [facility] 10/02/2024 BELLA Kevyn COYDOB: 7353-08-81ZZ [address]: ~~(5 6 (HP) Primary Insurance:HUMANAPolicy Number: [id number] Date:[id number] [address]CG: BELLA Kevyn [facility] 09/20/2024 Bella [facility] [address] [place] [address]Zvk: (HP) Primary Insurance:Self PayPolicy Number: Effective Date:2024-09-20 [facility] 08/27/2024 BELLA COYDOB: 5568-97-73[place] [address]: ~~([phone] 6 (HP) Primary Insurance:HUMANAPolicy Number: [id number] Date:2265-93-54VP [address] [place] [address]DU: [facility]/13/2024 BELLA COYDOB: 7180-60-34OW [address]: ~(56 7 (HP) Primary Insurance:HUMANAPolicy Number: [id number] Date:9617-61-22VW [address] [place] [address]RO: [facility] 08/05/2024 Primary Insurance:HUMANA MEDICARE PPOPolicy Number: [id number] Date:0382-06-37Plxm Name:N BELLA SANTOROB: [id number] [address] [place] [address] [facility] 07/24/2024 BELLA COYDOB: 7844-99-45VZ [address]: ~(56 [phone] (HP) Primary Insurance:HUMANAPolicy Number: [id number] Date:7038-10-45ND [address] [place] [address]IN: [facility] 07/01/2024 BELLA COYDOB: 4481-41-05QH [address] [place] [address]Hpp: (HP) Primary Insurance:HUMANA [place] - [place] RES[place]Policy Number: [id number] Date:2021-01-07 BELLA COYDOB: 7895-42-64MTJAW [address] [place] [address] [facility] 05/31/2024 Bella [address] [place] [address]Jlf: (HP) Primary Insurance:Humana MCR PFFSPolicy Number: [id number] Date:7150-76-21ME [address] [place] [address]UB: Bella AnnelieseDOB: [birth year]MIBUT [address] [place] [address]Juv: (HP) [facility] 05/31/2024 Secondary Insurance:Self PayPolicy Number: Effective Date:2024-05-31 [facility] 01/30/2024 BELLA L POWERSDOB: 2334-91-94JZ [address]: ~([phone] (HP) Primary Insurance:HUMANAPolicy Number: [id number] Date:5299-54-48XU [address] [address]NX: [facility] L [facility] 01/24/2024 BELLA L POWERSDOB: 4102-60-82XQ [address]: ~([phone] (HP) Primary Insurance:HUMANAPolicy Number: [id number] Date:2864-80-12SR [address] [address]ZW: BELLA Kevyn [facility] 01/16/2024 Bella PowersPO [address] [place] [address]Drs: (HP) Primary Insurance:Humana MCR PFFSPolicy Number: [id number] Date:4609-59-31RA [address] [address]ZT: Bella PowersDOB: 6439-78-84DYJGG [address] [place] [address]Mfc: (HP) [facility] 01/16/2024 Secondary Insurance:Self PayPolicy Number: Effective Date:2024-01-04 NOT GIVENUNK [facility] 12/08/2023 BELLA CAICEDO: [id number], [place] [address]Aqe: (HP) Primary Insurance:HUMANA MEDICARE - [place] RESIDENTPolicy Number: [id number] Date:2021-01-07 BELLA CAICEDO: [id number] [address], [place] [address]Jjh: (HP) [facility]
--- OUTSIDE RECORDS SUMMARY | 2024-11-29 14:29 | XMS_ITS | Encounter Summary ---
Author Organization [facility] Address [address] [place] [address] Care Team Providers Care Survey Research Center Director Name Role Phone TanyaElena RISA - [facility] Primary Care Provider + Reason for Referral * Imaging (Routine) - Closed Specialty Diagnoses / Procedures Referred By Contac t Referred To Contact Radiology Diagnoses Chest pain, unspecified type Dizziness Abnormal stress ECG R07.9 (ICD-10-CM) - Chest pain, unspecified type Procedures CTA CORON EJECT FRAC WALL MOTION CHG CT ANGIO HRT CORNRY ART/BYPASS GRFTS CONTRST 3D POST 27646 - CHG CT ANGIO HRT CORNRY ART/BYPASS GRFTS CONTRST 3D POST Juvenal Harrell MD [address] [place] [address] Phone: tel: fax: Referral ID Status Reason Start Date Expiration Date Visits Re quested Visits Authorized [id number] Closed 06/21/2022 05/07/2023 1 1 Encounter Details Date Type Department Care Team (Latest Contact Info) Description 05/07/2022 Transcribe Orders [place] Pre Access [address] [place] [id number] Juvenal Harrell MD [address] [place] [address] Chest pain, unspecified type (Primary Dx); Dizziness; Abnormal stress ECG Social History Tobacco Use Types Packs/Day Years Used Date Smoking Tobacco: Never Assessed Comments Unknown Sex and Gender Information Value Date Recorded Sex Assigned at Not on file Legal Sex Female 11:32 AM EST Gender Identity Not on file Sexual Orientation Not on file documented as of this encounter Plan of Treatment Scheduled Orders Name Type Priority Associated Diagnoses Orde r Schedule CTA CORON EJECT FRAC WALL MOTION Imaging Routine Chest pain, unspecified type Dizziness Abnormal stress ECG Expected: 05/07/2022, Expires: 05/07/2023 documented as of this encounter Visit Diagnoses Diagnosis Chest pain, unspecified type- Primary Dizziness Dizziness and giddiness Abnormal stress ECG Other nonspecific abnormal cardiovascular system function study documented in this encounter Care Teams Survey Research Center Director Relationship Specialty Start Date End Date Elena Martínez APRN - [address] [place] [address] PCP - General Certified Nurse Practitioner 06/17/22 documented as of this encounter
--- OUTSIDE RECORDS SUMMARY | 2024-11-29 14:29 | XMS_ITS | Clinical Summary ---
Author Organization [facility] Address [address] [email or web address] [address] Care Team Providers Care Mechanical Pencils Assembler Name Role Phone TanyaElena RISA - PICTURE COPYIST Primary Care Provider + Allergies No known active allergies Medications citalopram (CELEXA) 20 MG tablet Take 1 tablet by mouth daily Active lisinopril (PRINIVIL;ZESTRI L) 40 MG tablet Take 1 tablet by mouth daily Active rosuvastatin (CRESTOR) 10 MG tablet Take 1 tablet by mouth daily Active isosorbide mononitrate (IMDUR) 30 MG extended release tablet Take 1 tablet by mouth daily 01/17/2023 Active omeprazole (PRILOSEC) 40 MG delayed release capsule Take 1 capsule by mouth daily 12/20/2022 Active aspirin 81 MG EC tablet Take 1 tablet by mouth daily 90 tablet 3 01/23/2023 Active clopidogrel (PLAVIX) 75 MG tablet Take 1 tablet by mouth daily 90 tablet 3 01/23/2023 Active Social History Tobacco Use Types Packs/Day Years Used Date Smoking Tobacco: Every Day Cigarettes Smokeless Tobacco: Never Alcohol Use Standard Drinks/Week Comments Yes 0 (1 standard drink = 0.6 oz pur e alcohol) rare Interpersonal Safety Domain Source: IP Abuse Scr eening Answer Date Recorded Read-Only, Retired: Physical Abuse Denies 01/23/2023 Read-Only, Retired: Verbal Abuse Denies 01/23/2023 Read-Only, Retired: Emotional abuse Denies 01/23/2023 Read-Only, Retired: Financial Abuse Denies 01/23/2023 Read-Only, Retired: Sexual abuse Denies 01/23/2023 Comments No Sex and Gender Information Value Date Recorded Sex Assigned at Not on file Legal Sex Female 11:32 AM EST Gender Identity Not on file Sexual Orientation Not on file Last Filed Vital Signs Vital Sign Reading Time Taken Comments Blood Pressure 142/52 01/23/2023 6:20 PM EDT Pulse 69 01/23/2023 6:20 PM EDT Temperature 36.7 C (98 F) 01/23/2023 6:20 PM EDT Respiratory Rate 17 01/23/2023 6:20 PM EDT Oxygen Saturation 99% 01/23/2023 6:20 PM EDT Inhaled Oxygen Concentration - - Weight 59.4 kg (131 lb) 01/23/2023 12:09 PM EDT Height 154.9 cm (5' 1 ) 01/23/2023 12:09 PM EDT Body Mass Index 24.75 01/23/2023 12:09 PM EDT Plan of Treatment Health Maintenance Due Date Last Done Comments Lipids 1965 Depression Screen 1967 Hepatitis C screen 1973 DTaP/Tdap/Td vaccine (1 - Tdap) 1974 Pneumococcal 50+ years Vacci ne (1 of 2 - PCV) 1974 Breast cancer screen 1995 Colonoscopy 2000 Colorectal Cancer Screen 2000 FIT/FOBT: Average risk 2000 Fecal-DNA (Cologuard): Average risk 2000 Sigmoidoscopy/CT colonography 2000 Shingles vaccine (1 of 2) 2005 DEXA (modify frequency per F RAX score) 2010 COVID-19 Vaccine ( - 2023-2 5 season) 2024 Annual Wellness Visit (Medic are Advantage) 07/10/2024 Flu vaccine (Season Ended) 2025 Respiratory Syncytial Virus (RSV) or age 60 yrs+ (1 - 1-dose 75+ series) 2030 Hepatitis A vaccine Aged Out No longe r eligible based on patient's age to complete this topic Hepatitis B vaccine Aged Out No longe r eligible based on patient's age to complete this topic Hib vaccine Aged Out No longer eligi ble based on patient's age to complete this topic Meningococcal (ACWY) vaccine Aged Out No longer eligible based on patient's age to complete this topic Meningococcal B vaccine Aged Out No l onger eligible based on patient's age to complete this topic Polio vaccine Aged Out No longer elig ible based on patient's age to complete this topic Insurance [facility] MEDICARE Advance Directives * Full Code (Latest Code Status on File) Date Activated Date Inactivated Comments 01/23/2023 2:24 PM 01/23/2023 8:44 PM Care Teams Mechanical Pencils Assembler Relationship Specialty Start Date End Date Elena Martínez APRN - RUSSELL [address] [place] [address] PCP - General Certified Nurse Practitioner 06/17/22
--- OUTSIDE RECORDS SUMMARY | 2024-11-29 14:29 | XMS_ITS | Encounter Summary ---
Author Organization [employer] Address [facility] [id number] [address] [place] [address] Care Team Providers Care Director Of Dementia Operations Name Role Phone Services, [facility] Primary Care Provider Reason for Visit * Reason Onset Date Comments Pre-Cath meds 01/17/2023 Encounter Details Date Type Department Care Team (Late st Contact Info) Description 01/17/2023 Telephone [facility] [address] [place] [address] Shon Serrato RN Pre-Cath meds Social History Tobacco Use Types Packs/Day Years Used Date Smoking Tobacco: Every Day Cigarettes Smokeless Tobacco: Never Comments:has been decreasing daily Alcohol Use Standard Drinks/Week Comments Not Currently 0 (1 standard drink = 0.6 oz pur e alcohol) social--rare Childcare Answer Date Recorded Childcare Unknown 12/19/2018 Employment Answer Date Recorded Employment Unknown 12/19/2018 Purpose - Life Answer Date Recorded Purpose and direction in life Unknown Comments No Sex and Gender Information Value Date Recorded Sex Assigned at Not on file Legal Sex Female 12:11 PM EDT Gender Identity Not on file Sexual Orientation Not on file documented as of this encounter Miscellaneous Notes * Telephone Encounter - Shon Serrato RN - 01/17/2023 11:02 AM EDT ----- Message from Antonia De León DO sent at 01/17/2023 9:28 AM EDT ----- Regarding: Anti-anginal Therapy I appreciate you reaching out. We'll get her on meds for sure. Srikanth: can we send a script for Imdur 30 mg 1 tab once daily in the AM? 90 tabs with 1 refill for now. Thanks, HM ----- Message ----- From: Los Lee MD Sent: 01/15/2023 7:55 PM EDT To: Shon Serrato RN; Antonia De León, This patient is scheduled for a cardiac catheterization at [facility] on 01/23. Apparently the diagnosis is unstable angina. A chart review indicates no anti- anginal medications. I would advise the patient be placed on at least 1 anti-anginal medication. Otherwise although a diagnostic cardiac catheterization is indicated, revascularization would not meet appropriate use criteria for many potential anatomic scenarios. * Telephone Encounter - Shon Serrato RN - 01/17/2023 11:02 AM EDT [place] Staff, please see order from : Imdur 30 mg 1 tab once daily in the AM? * Telephone Encounter - Myla Best RN - 01/17/2023 11:02 AM EDT VM left that she will be started on Imdur 30 mg once daily prior to heart cath. New order pended. Asked pt to call office with any questions or concerns regarding this. * Telephone Encounter - DAI Valdes - 01/17/2023 11:02 AM EDT signed documented in this encounter Plan of Treatment Upcoming Encounters Date Type Department Care Team (Late st Contact Info) Description 12/31/2024 1:00 PM EDT Office Visit [facility] [address] [place] [address] Li Andres APRN-CNP [address] [place] [address] documented as of this encounter Visit Diagnoses Not on filedocumented in this encounter Care Teams Director Of Dementia Operations Relationship Specialty Start Date End Date Services, [facility] [address] [place], [place] PCP - General Family Medicine 07/01/24 documented as of this encounter
--- OUTSIDE RECORDS SUMMARY | 2024-11-29 14:29 | XMS_ITS | Clinical Summary ---
Author Organization [facility] Address [address] [place] [address] Care Team Providers Care Family Services Worker Name Role Phone Rafael Garrison MD Primary Care Provider [phone] Himanshu Borjas CNP Unavailable [phone] Allergies No known active allergies Medications citalopram (CELEXA) 20 mg tablet Take 1 tablet by mouth once daily. 0 10/03/2014 Active atorvastatin (LIPITOR) 20 mg tablet Take 1 tablet by mouth once daily. 0 10/03/2014 Active lisinopril (PRINIVIL) 20 mg tablet Take 1 tablet by mouth once daily. 0 10/03/2014 Active omeprazole (PRILOSEC) 40 mg capsule 1 capsule 30 minutes before morning meal Orally Once a day for 30 days 08/24/2021 Active rosuvastatin (CRESTOR) 20 mg tablet Take 20 mg by mouth. 02/10/2023 Active Active Problems Problem Noted Date Diagnosed Date Leucocytosis 10/06/2014 Dehydration 10/06/2014 Social History Tobacco Use Types Packs/Day Years Used Date Smoking Tobacco: Former Cigarettes 0.5 37 0 12/20/1975 - 12/19/2012 Smokeless Tobacco: Never Tobacco Cessation:Counseling Given: Not Answered Alcohol Use Standard Drinks/Week Comments No 0 (1 standard drink = 0.6 oz pur e alcohol) Area Deprivation Index Answer Date Perez rded National Score (1-100), lower number is lower ri 79 08/05/2024 State Score (1-10), lower number is lower risk 7 08/05/2024 Data from: https://www.neigh borhoodatlas.medicine.[facility].edu/. Last address used for calculation [address] 08/05/2024 Comments No Sex and Gender Information Value Date Recorded Sex Assigned at Not on file Legal Sex Female 8:39 AM EDT Gender Identity Not on file Sexual Orientation Not on file Last Filed Vital Signs Vital Sign Reading Time Taken Comments Blood Pressure 108/45 08/05/2024 11:05 AM EST Pulse 56 08/05/2024 11:05 AM EST Temperature 36.1 C (97 F) 08/05/2024 11:05 AM EST Respiratory Rate - - Oxygen Saturation 98% 08/05/2024 11:05 AM EST Inhaled Oxygen Concentration - - Weight 53.5 kg (118 lb) 08/05/2024 11:05 AM EST Height 154.9 cm (5' 1 ) 10/21/2014 9:41 AM EDT [facility] Body Mass Index 22.3 10/21/2014 9:41 AM EDT Plan of Treatment Health Maintenance Due Date Last Done Comments Anxiety Screening 1973 Depression Screening 1973 Hepatitis C Screening 1973 DTaP,Tdap,Td Vaccine (1 - Tdap) 1974 CT Colonography 2000 Cologuard (FIT-DNA) 2000 Colonoscopy 2000 Colorectal Cancer Screening 2000 Fecal Occult Blood 2000 Lipid Screening 2000 Sigmoidoscopy 2000 Pneumococcal Vaccine: 50+ (1 of 1 - PCV) 2005 Shingrix Vaccine (1 of 2) 2005 Bone Density Screening 2020 Covid-19 Vaccine (1 - 2023-2 5 season) 2024 Advance Directive Discussion 07/10/2024 Mammogram Screening 12/07/2024 12/08/2023, 12/06/2022, 11/16/2021, Additional history exists Influenza Vaccine (Season Ended) 2025 Diabetes Screening 01/23/2026 01/23/2023, 0 01/13/2023, 11/09/2018 RSV Vaccine (1 - 1-dose 75+ series) 2030 Procedures Procedure Name Priority Date/Time Associated Diagnosis Comments COMPREHENSIVE METABOLIC PANEL Fax 11/09/2018 9:07 AM EDT from Last 3 Months or Most Recently Relevant to Health Maintenance Results * (ABNORMAL) COMP METABOLIC PANEL (11/09/2018 9:07 AM EDT) Protein, Total 6.8 6.3 - 8.0 g/dL 11/09/2018 6:03 PM EDT [facility] Albumin 4.3 3.9 - 4.9 g/dL 11/09/2018 6:03 PM EDT [facility] Calcium 9.2 8.5 - 10.2 mg/dL 11/09/2018 6:03 PM EDT [facility] Bilirubin, Total 0.4 0.2 - 1.3 mg/dL 11/09/2018 6:03 PM EDT [facility] Alkaline Phosphatase 193(H) 34 - 123 U/L 11/09/2018 6:03 PM EDT [facility] AST 48(H) 13 - 35 U/L 11/09/2018 6:03 PM EDT [facility] Glucose 76 74 - 99 mg/dL 11/09/2018 6:03 PM EDT [facility] Comment: The [place] Diabetes Association (ADA) provides guidance for cutoff values for fasting glucose and random glucose. The ADA defines fasting as no caloric intake for at least 8 hours. Fasting plasma glucose results between 100 to 125 mg/dL indicate increased risk for diabetes (prediabetes). Fasting plasma glucose results greater than or equal to 126 mg/dL meet the criteria for diagnosis of diabetes. In the absence of unequivocal hyperglycemia, results should be confirmed by repeat testing. In a patient with classic symptoms of hyperglycemia or hyperglycemic crisis, random plasma glucose results greater than or equal to 200 mg/dL meet the criteria for diagnosis of diabetes. Reference: Standards of Medical Care in Diabetes 2016, [place] Diabetes Association. Diabetes Care. 2016.39(Suppl 1). BUN 16 7 - 21 mg/dL 11/09/2018 6:03 PM EDT [facility] Creatinine 0.88 0.58 - 0.96 mg/dL 11/09/2018 6:03 PM EDT [facility] Sodium 139 136 - 144 mmol/L 11/09/2018 6:03 PM EDT [facility] Potassium 4.6 3.7 - 5.1 mmol/L 11/09/2018 6:03 PM EDT [facility] Chloride 98 97 - 105 mmol/L 11/09/2018 6:03 PM EDT [facility] CO2 28 22 - 30 mmol/L 11/09/2018 6:03 PM EDT [facility] Anion Gap 13 9 - 18 mmol/L 11/09/2018 6:03 PM EDT [facility] ALT 55(H) 7 - 38 U/L 11/09/2018 6:03 PM EDT [facility] eGFR- >60 11/09/2018 6:03 PM EDT [facility] eGFR-All Other Races >60 . 11/09/2018 6:03 PM EDT [facility] Comment: eGFR (Estimated GFR) Units of measure: mL/min/1.73 meters squared eGFR is derived from the reexpressed MDRD Study equation using the following parameters: serum creatinine, age, gender and race. The creatinine assay has been calibrated to be traceable to IDMS. An eGFR <60 mL/min/1.73m2 for >3 months is consistent with chronic kidney disease. Refer to KDOQI guidelines for clinical interpretation. In patients with unstable renal function, e.g. those with acute kidney injury, the eGFR may not accurately reflect actual GFR. 11/09/2018 9:07 AM EDT 11/09/2018 9:12 AM EDT [facility] Provider LABORATORY Final Result [facility] [address] [place] [address] [facility] [address] [place] [address] from Last 3 Months or Most Recently Relevant to Health Maintenance Insurance [employer] MEDICARE Care Teams Family Services Worker Relationship Specialty Start Date End Date Rafael Garrison MD [address] [place] [phone] PCP - General Internal Medicine 10/03/14 Himanshu Borjas CNP [address] [place] [phone] Family Medicine 01/10/24
--- OUTSIDE RECORDS SUMMARY | 2024-11-29 14:29 | XMS_ITS | Clinical Summary ---
Author Organization [facility] Address [address] [place] [address] Care Team Providers Care Handling Tech Name Role Phone Niles Morales MD Unavailable [phone] Rafael Garrison MD Primary Care Provider [phone] Social History Tobacco Use Types Packs/Day Years Used Date Smoking Tobacco: Never Assessed Comments Unknown Sex and Gender Information Value Date Recorded Sex Assigned at Not on file Legal Sex Female 6:59 PM EDT Gender Identity Not on file Sexual Orientation Not on file Last Filed Vital Signs Vital Sign Reading Time Taken Comments Blood Pressure 126/78 02/02/2021 12:00 PM EDT Pulse - - Temperature - - Respiratory Rate - - Oxygen Saturation - - Inhaled Oxygen Concentration - - Weight 59.4 kg (131 lb) 02/02/2021 12:00 PM EDT Height 152.4 cm (5') 02/02/2021 12:00 PM EDT Body Mass Index 25.58 02/02/2021 12:00 PM EDT Plan of Treatment Health Maintenance Due Date Last Done Comments CT Colonography 1955 FIT-DNA 1955 FIT 1955 FOBT 1955 Medicare Annual Wellness (AWV) 1955 Sigmoidoscopy 1955 Pneumococcal Vaccine: 65+ Ye ars (1 of 1 - PCV) 2005 Mammogram 12/07/2024 12/08/2023, 11/09, 11/16/2021, Additional history exists Influenza Vaccine (Season Ended) 2025 Colonoscopy 12/24/2030 12/24/2020 Colorectal Cancer Screening 12/24/2030 Insurance [employer] MEDICARE ADVANTAGE Care Teams Handling Tech Relationship Specialty Start Date End Date Niles Morales MD [address] [place] [address] [facility] Rafael Garrison MD [address] [facility] [place] [phone] PCP - General Internal Medicine 10/11/23
--- OUTSIDE RECORDS SUMMARY | 2024-11-29 14:30 | XMS_ITS | Encounter Summary ---
Author Organization [employer] Address [id number] [address] [place] [address] Care Team Providers Care Rivet Hammer Machine Operator Name Role Phone Services, [facility] Primary Care Provider Encounter Details Date Type Department Care Team (Late st Contact Info) Description 08/18/2020 Telephone [facility] [address] [place] [phone] Bhaskar Reyes MD [address] [place] [phone] Social History Tobacco Use Types Packs/Day Years Used Date Smoking Tobacco: Former Smokeless Tobacco: Never Childcare Answer Date Recorded Childcare Unknown 12/19/2018 Employment Answer Date Recorded Employment Unknown 12/19/2018 Purpose - Life Answer Date Recorded Purpose and direction in life Unknown Comments Unknown Sex and Gender Information Value Date Recorded Sex Assigned at Not on file Legal Sex Female 12:11 PM EDT Gender Identity Not on file Sexual Orientation Not on file documented as of this encounter Miscellaneous Notes * Telephone Encounter - Avery Sandoval - 08/18/2020 2:18 PM EST Can you please input kub order in [employer] for pt's upcoming appt. Thank you. * Telephone Encounter - Amisha Laboy LPN - 08/18/2020 2:18 PM EST Done Amisha Laboy LPN 08/19/20 [id number] documented in this encounter Plan of Treatment Upcoming Encounters Date Type Department Care Team (Late st Contact Info) Description 12/31/2024 1:00 PM EDT Office Visit [facility] [address] [place] [phone] Li Andres, AVIONICS MECHANIC-SERVICENOW ADMINISTRATOR [address] [place] [address] documented as of this encounter Visit Diagnoses Not on filedocumented in this encounter Care Teams Rivet Hammer Machine Operator Relationship Specialty Start Date End Date Services, [facility] [address] [place], [place] PCP - General Family Medicine 07/01/24 documented as of this encounter
--- OUTSIDE RECORDS SUMMARY | 2024-11-29 14:30 | XMS_ITS | Patient Health Record ---
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 Ordering Physician: Elizabeth Lott M.D. Date of Service: 10/02/24 Procedure(s): XR abdomen 1V Accession Number(s): [id number] cc: Elizabeth Lott M.D.; Yulia Hudson NP [place] [address] Patient Name: BELLA COY MRN: [id number] date: 1955 Sex: F Assigned Patient Location: SURGOUT Current Patient Location: SURGOUT Accession/Order Number: [id number] Exam Date: 10/02/2024 15:27 Report Date: 10/02/2024 15:28 At the request of: ELIZABETH LOTT MD Procedure: XR abdomen 1V KUB: CLINICAL INFORMATION: Kidney stones COMPARISON: KUB report 05/05/2024 FINDINGS: Subtle punctate bilateral nephrolithiasis. Overlying bowel gas limits the evaluation of the right kidney. No bowel obstruction or free air. XR/XR abdomen 1V IMPRESSION: SUBTLE PUNCTATE BILATERAL NEPHROLITHIASIS. Impression dictated by: Dallas Lowe Jr., D.O.10/02/2024 3:28 PM Dictation Location: [place] [address] Electronically authenticated by: [id number] Y Date: 10/02/2024 15:28 Dictated By: Dallas Lowe M.D. Signed By: 10/02/24 1531 DD/ 1528 TD/TT: Button Broacher: Lipid Panel Reviewed date:05/30/2024 12:08:06 PM Interpretation: Performing Lab: Notes/Report: [facility] , Triglycerides 163 <=150 mg/dL Cholesterol 225 <=200 mg/dL HDL Cholesterol 44 40-60 mg/dL > or =60 mg/dl - LOW CARDIOVASCULAR RISK <40 mg/dl - HIGH CARDIOVASCULAR RISK LDL Cholesterol Calculated 149.0 <100 mg/dl OPTIMAL 100-129 mg/dl NEAR OR ABOVE OPTIMAL 130-159 mg/dl BORDERLINE HIGH 160-189 mg/dl HIGH >190 mg/dl VERY HIGH VLDL CHOLESTEROL 32.6 Chol HDL Ratio 5.1 3.3 - 4.4 LOW RISK 4.4 - 7.1 AVERAGE RISK 7.1 - 11.0 MODERATE RISK >11.0 HIGH RISK Performing Lab: see note ML - [facility] LB Comprehensive Metabolic Pane l Reviewed date:05/30/2024 12:08:06 PM Interpretation: Performing Lab: Notes/Report: [facility] , Sodium 141 136-145 mmol/L Potassium 4.0 3.5-5.1 mmol/L Chloride 106 98-107 mmol/L Carbon Dioxide 22.7 21.0-32.0 mmol/L Anion Gap 16.3 Glucose 91 74-106 mg/dL Blood Urea Nitrogen 15.0 7.0-18.0 mg/dL Creatinine 0.80 0.55-1.02 mg/dL Estimated GFR ( Zaida >60 >=60 mL/min/1.73m 2 Estimated GFR (Non- Pina >60 >=60 mL/min/1.73m 2 BUN Creatinine Ratio 18.8 Calcium 8.6 8.5-10.1 mg/dL Bilirubin Total 0.3 0.2-1.0 mg/dL Aspartate Amino Transferase 11 15-37 U/L Alanine Aminotransferase 14 14-59 U/L Alkaline Phosphatase 54 46-116 U/L Total Protein 6.9 6.4-8.2 g/dL Albumin Level 3.6 3.4-5.0 g/dL Globulin 3.3 Albumin Globulin Ratio 1.1 Performing Lab: see note ML - [facility] LB MAMM SCREENING BILATERAL W C AD Reviewed date:12/12/2023 05:28:36 AM Interpretation: Performing Lab: Notes/Report: RESULTS BELOW EXAM: MAMM SCREENING BILATERAL W CAD, 12/08/2023 3:15 PM US renal BI Reviewed date:05/01/2024 01:34:12 PM Interpretation: Performing Lab: Notes/Report: Source Facility: [place] [address] Ultrasound Report Signed Patient: BELLA COY MR#: [id number] : 1955 Acct:[id number] Age/Sex: 68 / F ADM Date: 04/30/24 Loc: US Attending Dr: Elizabeth Lott M.D. Ordering Physician: Elizabeth Lott M.D. Date of Service: 04/30/24 Procedure(s): US renal BI Accession Number(s): [id number] cc: NADIRA SUBRAMANIAN ; Elizabeth Lott M.D. [place] [address] Patient Name: BELLA COY MRN: [id number] date: 1955 Sex: F Assigned Patient Location: Current Patient Location: Accession/Order Number: [id number] Exam Date: 04/30/2024 10:06 Report Date: 05/01/2024 09:01 At the request of: ELIZABETH LOTT Procedure: US renal BI EXAMINATION: US renal BI HISTORY: Kidney Stones COMPARISON: Ultrasound renal bilateral 08/08/2023 TECHNIQUE: Ultrasound examination was performed of the kidneys and urinary bladder. FINDINGS: RIGHT KIDNEY: Stable 2.2 cm complex cyst within superior pole. Nonobstructing 0.7 cm stone within inferior pole. Normal parenchymal echogenicity. No significant cortical thinning. Color Doppler demonstrates blood flow within the kidney. Kidney: 10.7 x 4.6 x 4.3 cm LEFT KIDNEY: 1.5 cm cyst within inferior pole favoring benign etiology. Persistent 1.2 cm echogenic structure within mid body and suspected represent a large stone. Normal parenchymal echogenicity. Minimal cortical thinning, 0.9 cm in thickness. Color Doppler demonstrates blood flow within the kidney. Kidney: 10.2 x 4.9 x 4.5 cm BLADDER: No visible wall thickening, mass, or calculi. US/US renal BI IMPRESSION: 1. Bilateral nonobstructing nephrolithiasis. 2. Stable slightly complex right renal cyst. Consider follow-up imaging in one year to document stability. Electronically authenticated by: MAVERICK MAHMOOD Date: 05/01/2024 09:01 Dictated By: Maverick Mahmood M.D. Signed By: 05/01/24903 DD/ 0 TD/TT: Button Broacher: ECG 12 lead Reviewed date:09/29/2024 08:17:21 PM Interpretation: Performing Lab: Notes/Report: Source Facility: [place] [address] [place] [address] Electrocardiograph Report Signed Patient: BELLA COY MR#: [id number] : 1955 Acct:[id number] Age/Sex: 69 / F ADM Date: 09/27/24 Loc: CARD Attending Dr: Elizabeth Lott M.D. Ordering Physician: Elizabeth Lott M.D. 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 Measurements Intervals Meherrin Rate: 60 P: 72 AR: 163 QRS: 61 QRSD: 78 T: 58 QT: 402 QTc: 404 Interpretive Statements SINUS RHYTHM Normal ECG Compared to ECG 03/09/2024 00:44:08 No significant changes Electronically Signed On 09-27-2024 17:38:39 EDT by KAMILAH LANDRY M.D. Dictated By: KAMILAH LANDRY Signed By: 09/27/24 1738 DD/ 0904 TD/TT: Button Broacher: XR chest 2V Reviewed date:09/26/2024 08:34:46 AM Interpretation: Performing Lab: Notes/Report: Source Facility: [place] [address] XRay Report Signed Patient: BELLA COY MR#: [id number] : 1955 Acct:[id number] Age/Sex: 69 / F ADM Date: 09/20/24 Loc: PST Attending Dr: Elizabeth Lott M.D. Ordering Physician: Elizabeth Lott M.D. Date of Service: 09/20/24 Procedure(s): XR chest 2V Accession Number(s): [id number] cc: Elizabeth Lott M.D.; Yulia Hudson NP [place] [address] Patient Name: BELLA COY MRN: [id number] date: 1955 Sex: F Assigned Patient Location: [facility] Current Patient Location: [facility] Accession/Order Number: [id number] Exam Date: 09/20/2024 15:57 Report Date: 09/20/2024 15:58 At the request of: ELIZABETH LOTT MD Procedure: XR chest 2V Plain film chest 2 view HISTORY: Presurgical assessment COMPARISON: 09/18/2024 FINDINGS: SUPPORT DEVICES: None POSTSURGICAL CHANGES: None HEART: Within normal limits PULMONARY JOHN: Within normal limits MEDIASTINUM: Unremarkable LUNGS AND PLEURA: No acute lung process, pleural effusion or pneumothorax identified. BONY STRUCTURES: Intact ADDITIONAL FINDINGS None XR/XR chest 2V IMPRESSION: No acute process. Impression dictated by: Deepak Acosta M.D.09/20/2024 3:58 PM Dictation Location: [place] [address] Electronically authenticated by: [id number] Y Date: 09/20/2024 15:58 Dictated By: Deepak Acosta D.O. Signed By: 09/20/24 1600 DD/ 1558 TD/TT: Button Broacher: Urine Culture - [facility] Reviewed date:09/26/2024 08:35:49 AM Interpretation: Performing Lab: Notes/Report: , [facility] Urine Culture - [facility] See Below For Report Urine Culture - [facility] 20,000 colonies/mL mixed bacterial skin contaminants. Urine Culture - [facility] 2 days. Urine Culture - [facility] 20,000 colonies/mL mixed bacterial skin contaminants. Urine Culture - [facility] Urine Culture - [facility] 20,000 colonies/mL mixed bacterial skin contaminants. Urine Culture - [facility] Testing performed at [facility] Urine Culture - [facility] 20,000 colonies/mL mixed bacterial skin contaminants. Urine Culture - [facility] [address] [place] [address] Urine Culture - [facility] 20,000 colonies/mL mixed bacterial skin contaminants. Performing Lab: see note ML - [facility] LB Urine Microscopic Reviewed date:09/26/2024 08:35:49 AM Interpretation: Performing Lab: Notes/Report: [facility] , WBC Urine 0-2 NONE SEEN #/HPF RBC Urine 0-2 0-2 #/HPF Bacteria Urine MODERATE NONE SEEN #/HPF Mucus Urine NONE SEEN NONE SEEN Squamous Epithelial Cell Urine FEW NONE/RARE #/LPF Crystals Seen? None Seen None Seen #/HPF Cast Seen? NONE SEEN NONE SEEN #/LPF Urine Culture Indicated YES-[facility] Performing Lab: see note ML - [facility] LB UA Culture/Micro if Indicate d Reviewed date:09/26/2024 08:35:49 AM Interpretation: Performing Lab: Notes/Report: [facility] , Color Urine YELLOW YELLOW Clarity Urine CLEAR CLEAR Specific [place] Urine 1.020 1.005-1.025 pH Urine 6.0 5.0-9.0 Protein Urine NEGATIVE NEG/TRACE mg/dL Glucose Urine UA NEGATIVE NEGATIVE mg/dL Bilirubin Urine NEGATIVE NEGATIVE Ketones Urine NEGATIVE NEGATIVE mg/dL Blood Urine SMALL NEGATIVE Nitrite Urine NEGATIVE NEGATIVE Urobilinogen Urine 0.2 0.2-1.0 EU/dL Leukocyte Esterase Urine NEGATIVE NEGATIVE Urine Microscopic Indicated YES Performing Lab: see note ML - [facility] LB Partial Thromboplastin Time Reviewed date:09/26/2024 08:35:49 AM Interpretation: Performing Lab: Notes/Report: [facility] , Partial Thromboplastin Time 26.5 22.3-36.2 sec Performing Lab: see note ML - [facility] LB Prothrombin Time INR Reviewed date:09/26/2024 08:35:49 AM Interpretation: Performing Lab: Notes/Report: [facility] , Prothrombin Time 10.5 9.0-11.6 sec INR 0.99 DESIRED INR: 2.0-3.0 CONDITIONS NOT LISTED BELOW 2.5-3.5 FOR PROSTHETIC HEART VALVE REPLACEMENT 2.5-3.5 RECURRENT THROMBOSIS Performing Lab: see note ML - [facility] LB Complete Blood Count Auto Di ff Reviewed date:09/26/2024 08:35:49 AM Interpretation: Performing Lab: Notes/Report: [facility] , White Blood Count 7.8 4.0-11.0 10 3/uL Red Blood Count 4.48 4.20-5.40 10 6/uL Hemoglobin 13.4 12.0-16.0 g/dL Hematocrit 41.2 36.0-48.0 % Mean Corpuscular Volume 92.0 81.0-99.0 fL Mean Corpuscular Hemoglobin 29.9 26.7-34.0 pg Mean Corpuscular HGB Conc 32.5 29.9-35.2 g/dL Red Cell Distribution Width 12.2 11.0-15.0 % Platelet Count 296 150-450 10 3/uL Mean Platelet Volume 8.7 9.5-13.5 fL Neutrophils Percent Auto 54.4 43.0-75.0 % Lymphocytes Percent Auto 33.8 20.5-60.0 % Monocytes Percent Auto 6.9 1.7-12.0 % Eosinophils Percent Auto 3.5 0.9-7.0 % Basophils Percent Auto 1.3 0.2-2.0 % Immature Granulocytes Pct Auto 0.1 0.0-0.5 % Neutrophils Absolute Auto 4.3 1.4-6.5 10 3/uL Lymphocytes Absolute Auto 2.6 1.2-3.8 10 3/uL Monocytes Absolute Auto 0.5 0.3-0.8 10 3/uL Eosinophils Absolute Auto 0.3 0.0-0.7 10 3/uL Basophils Absolute Auto 0.1 0.0-0.1 10 3/uL Immature Granulocytes Abs Auto 0.01 0.00-0.03 10 3/uL Performing Lab: see note - [facility] Basic Metabolic Panel Reviewed date:09/26/2024 08:35:49 AM Interpretation: Performing Lab: Notes/Report: , [facility] Sodium 139 136-145 mmol/L Potassium 4.7 3.5-5.1 mmol/L Chloride 103 98-107 mmol/L Carbon Dioxide 32.1 21.0-32.0 mmol/L Anion Gap 8.6 Glucose 94 74-106 mg/dL Blood Urea Nitrogen 10.0 7.0-18.0 mg/dL Creatinine 0.84 0.55-1.02 mg/dL Estimated GFR ( Zaida >60 >=60 mL/min/1.73m 2 Estimated GFR (Non- Pina >60 >=60 mL/min/1.73m 2 BUN Creatinine Ratio 11.9 Calcium 9.3 8.5-10.1 mg/dL Performing Lab: see note - [facility] XR abdomen 1V Reviewed date:05/06/2024 08:37:33 AM Interpretation: Performing Lab: Notes/Report: Source Facility: [place] [address] [place] [address] XRay Report Signed Patient: BELLA COY MR#: [id number] : 1955 Acct:[id number] Age/Sex: 68 / F ADM Date: 04/30/24 Loc: US Attending Dr: Elizabeth Lott M.D. Ordering Physician: Elizabeth Lott M.D. Date of Service: 04/30/24 Procedure(s): XR abdomen 1V Accession Number(s): [id number] cc: NADIRA SUBRAMANIAN ; Elizabeth Lott M.D. [place] [address] Patient Name: BELLA COY MRN: [id number] date: 1955 Sex: F Assigned Patient Location: US Current Patient Location: Accession/Order Number: [id number] Exam Date: 04/30/2024 10:10 Report Date: 05/05/2024 06:51 At the request of: ELIZABETH LOTT Procedure: XR abdomen 1V EXAMINATION: XR abdomen 1V HISTORY: Kidney Stone COMPARISON: CT abdomen pelvis 11/22/2023 FINDINGS: KIDNEY/URETER - RIGHT: 7 mm stone projecting over inferior pole of right kidney. KIDNEY/URETER - LEFT: Several small calcifications projecting over superior pole of left kidney. PELVIS: No appreciable ureteral stones. Stable pelvic calcifications compatible with phleboliths. BOWEL: No abnormal dilation or deviation. BONES: No acute abnormality. OTHER: Negative. No abnormal gaseous collections. XR/XR abdomen 1V IMPRESSION: 1. Grossly stable bilateral nephrolithiasis. Electronically authenticated by: MAVERICK MAHMOOD Date: 05/05/2024 06:51 Dictated By: Maverick Mahmood M.D. Signed By: 05/05/2453 DD/ TD/TT: Button Broacher: CT facial bones wo con Reviewed date:03/13/2024 11:39:49 AM Interpretation: Performing Lab: Notes/Report: Source Facility: [place] [address] CT Scan Report Signed Patient: BELLA COY MR#: [id number] : 1955 Acct:[id number] Age/Sex: 68 / F ADM Date: 03/09/24 Loc: ER Attending Dr: Ordering Physician: Iam Loving Date of Service: 03/09/24 Procedure(s): CT facial bones wo con Accession Number(s): [id number] cc: NADIRA SUBRAMANIAN [place] [id number] Patient Name: BELLA COY MRN: [id number] date: 1955 Sex: F Assigned Patient Location: ER Current Patient Location: ER Accession/Order Number: [id number] Exam Date: 03/09/2024 02:20 Report Date: 03/09/2024 02:49 At the request of: IAM LOVING Procedure: CT facial bones wo con EXAM: CT facial bones wo con CLINICAL INDICATION: injury COMPARISON: None TECHNIQUE: Multiple unenhanced axial CT images were obtained of the facial bones in soft tissue and bone windows. Coronal, axial, and sagittal reformatted images were also provided in soft tissue and bone windows and submitted for interpretation. Dose reduction techniques were achieved by using automated exposure control and/or adjustment of mA and/or kV according to patient size and/or use of iterative reconstruction technique. FINDINGS: Soft Tissues: No soft tissue edema or hematoma. Osseous Orbits: No fracture, subluxation, or dislocation. Lamina Papyracea: Intact. Paranasal Sinuses: Clear. Nasal Septum: Intact. Nasal Bones: Well-corticated likely old bilateral nasal bone fractures. Maxilla: Intact. Few periapical lucencies suggest periodontal disease. Mandible: Intact. Few periapical lucency suggest periodontal disease. Temporal Bones: Intact. Mastoid air cells are well aerated. Middle ear cavities are grossly clear. Temporomandibular Joints: No subluxation or dislocation bilaterally. Globes: Intact. Intraconal Space Contents: Orbital fat and ophthalmic arteries are unremarkable. Extraconal Space Contents: Fat is clean and symmetric. CT/CT facial bones wo con IMPRESSION: Well-corticated likely old bilateral nasal bone fractures without adjacent soft tissue edema. No other facial bone fracture. Electronically authenticated by: MARISELA MUNOZ Date: 03/09/2024 02:49 Dictated By: Marisela Munoz M.D. Signed By: 03/09/24 0252 DD/ 0249 TD/TT: Button Broacher: CT head/brain wo con Reviewed date:03/13/2024 11:40:08 AM Interpretation: Performing Lab: Notes/Report: Source Facility: [facility] [place] [address] [place] [address] CT Scan Report Signed Patient: BELLA COY MR#: [id number] : 1955 Acct:[id number] Age/Sex: 68 / F ADM Date: 03/09/24 Loc: ER Attending Dr: Ordering Physician: Iam Loving Date of Service: 03/09/24 Procedure(s): CT head/brain wo con Accession Number(s): [id number] cc: NADIRA SUBRAMANIAN [place] [address] Patient Name: BELLA COY MRN: [id number] date: 1955 Sex: F Assigned Patient Location: ER Current Patient Location: ER Accession/Order Number: [id number] Exam Date: 03/09/2024 02:20 Report Date: 03/09/2024 02:45 At the request of: IAM LOVING Procedure: CT head/brain wo con EXAM: CT head/brain wo con CLINICAL INDICATION: injury COMPARISON: CT head 01/10/2019. TECHNIQUE: Axial CT images of the brain were obtained without contrast. Coronal and sagittal reformats were obtained. Dose reduction techniques were achieved by using automated exposure control and/or adjustment of mA and/or kV according to patient size and/or use of iterative reconstruction technique. FINDINGS: No intracranial hemorrhage, extra-axial fluid collection, hydrocephalus, midline shift, or acute large vessel territory infarction. No other mass effect. Patent basal cisterns. Trace periventricular and subcortical hypoattenuation is likely on the basis of chronic microvascular angiopathic changes. Mild symmetric global volume loss without lobar predominance. Commensurate ventricular system caliber prominence. No calvarial fracture. Normal soft tissues. Paranasal sinuses and mastoid air cells are well-aerated. CT/CT head/brain wo con IMPRESSION: No acute intracranial process. Electronically authenticated by: MARISELA MUNOZ Date: 03/09/2024 02:45 Dictated By: Marisela Munoz M.D. Signed By: 03/09/248 DD/ 4 TD/TT: Button Broacher: CT cervical spine wo con Reviewed date:03/13/2024 11:39:38 AM Interpretation: Performing Lab: Notes/Report: Source Facility: [address] [address] [address] Scan Report Signed Patient: BELLA COY MR#: [id number] : 1955 Acct:[id number] Age/Sex: 68 / F ADM Date: 03/09/24 Loc: ER Attending Dr: Ordering Physician: Iam Loving Date of Service: 03/09/24 Procedure(s): CT cervical spine wo con Accession Number(s): [id number] cc: NADIRA SUBRAMANIAN [place] [address] Patient Name: BELLA COY MRN: [id number] date: 1955 Sex: F Assigned Patient Location: ER Current Patient Location: ER Accession/Order Number: [id number] Exam Date: 03/09/2024 02:20 Report Date: 03/09/2024 02:56 At the request of: IAM LOVING Procedure: CT cervical spine wo con EXAM: CT cervical spine wo con CLINICAL INDICATION: fall COMPARISON: CT cervical spine 01/10/2019. TECHNIQUE: Axial CT images of the cervical spine were obtained without intravenous contrast. Coronal and sagittal reformatted images were also reviewed. Dose reduction techniques were achieved by using automated exposure control and/or adjustment of mA and/or kV according to patient size and/or use of iterative reconstruction technique. FINDINGS: Osseous Mineralization: Mild osseous demineralization limits evaluation of fine osseous detail. Trauma: No fracture, traumatic malalignment, facet dislocation, or discrete epidural hemorrhage. Alignment: Normal craniocervical and cervicothoracic junctions. Vertebral Body Heights: Maintained. Spondylotic Changes: Multilevel spondylotic changes include varying degrees of intervertebral disc height loss, osteophytic ridging, endplate sclerosis, and facet/uncovertebral joint hypertrophy. Soft Tissues: No acute abnormalities. Other: Clear visualized lung apices. Airway is patent. CT/CT cervical spine wo con IMPRESSION: 1. No cervical spine fracture or traumatic malalignment. 2. Multilevel spondylotic changes. Electronically authenticated by: MARISELA MUNOZ Date: 03/09/2024 02:56 Dictated By: Marisela Munoz M.D. Signed By: 03/09/24258 DD/ 5 TD/TT: Button Broacher: Lipid Panel Reviewed date:02/26/2024 07:41:13 AM Interpretation: Performing Lab: Notes/Report: [facility] , Triglycerides 203 <=150 mg/dL Cholesterol 266 <=200 mg/dL HDL Cholesterol 42 40-60 mg/dL > or =60 mg/dl - LOW CARDIOVASCULAR RISK <40 mg/dl - HIGH CARDIOVASCULAR RISK LDL Cholesterol Calculated 184.0 <100 mg/dl OPTIMAL 100-129 mg/dl NEAR OR ABOVE OPTIMAL 130-159 mg/dl BORDERLINE HIGH 160-189 mg/dl HIGH >190 mg/dl VERY HIGH VLDL CHOLESTEROL 40.6 Chol HDL Ratio 6.3 3.3 - 4.4 LOW RISK 4.4 - 7.1 AVERAGE RISK 7.1 - 11.0 MODERATE RISK >11.0 HIGH RISK Performing Lab: see note ML - [facility] LB Comprehensive Metabolic Pane l Reviewed date:02/26/2024 07:41:07 AM Interpretation: Performing Lab: Notes/Report: [facility] , Sodium 138 136-145 mmol/L Potassium 3.8 3.5-5.1 mmol/L Chloride 101 98-107 mmol/L Carbon Dioxide 30.1 21.0-32.0 mmol/L Anion Gap 10.7 Glucose 97 74-106 mg/dL Blood Urea Nitrogen 12.0 7.0-18.0 mg/dL Creatinine 0.76 0.55-1.02 mg/dL Estimated GFR ( Zaida >60 >=60 Estimated GFR (Non- Pina >60 >=60 BUN Creatinine Ratio 15.8 Calcium 8.9 8.5-10.1 mg/dL Bilirubin Total 0.4 0.2-1.0 mg/dL Aspartate Amino Transferase 10 15-37 U/L Alanine Aminotransferase 17 14-59 U/L Alkaline Phosphatase 65 46-116 U/L Total Protein 7.2 6.4-8.2 g/dL Albumin Level 3.8 3.4-5.0 g/dL Globulin 3.4 Albumin Globulin Ratio 1.1 Performing Lab: see note ML - [facility] LB CBC no Diff (Hemogram) Reviewed date:02/26/2024 07:40:51 AM Interpretation: Performing Lab: Notes/Report: [facility] , White Blood Count 7.2 4.0-11.0 10 3/uL Red Blood Count 4.51 4.20-5.40 10 6/uL Hemoglobin 13.5 12.0-16.0 g/dL Hematocrit 40.9 36.0-48.0 % Mean Corpuscular Volume 90.7 81.0-99.0 fL Mean Corpuscular Hemoglobin 29.9 26.7-34.0 pg Mean Corpuscular HGB Conc 33.0 29.9-35.2 g/dL Red Cell Distribution Width 12.3 11.0-15.0 % Platelet Count 300 150-450 10 3/uL Mean Platelet Volume 8.9 9.5-13.5 fL Performing Lab: see note ML - [facility] US renal BI Reviewed date:10/15/2024 04:08:05 PM Interpretation: Performing Lab: Notes/Report: Source Facility: [facility]-[address] [place] [address] Ultrasound Report Signed Patient: BELLA COY MR#: [id number] : 1955 Acct:[id number] Age/Sex: 69 / F ADM Date: 10/15/24 Loc: US Attending Dr: Shira LIANG Ordering Physician: Shira Gibson Date of Service: 10/15/24 Procedure(s): US renal BI Accession Number(s): [id number] cc: Shira Gibson; Yulia Hudson NP [place] [address] Patient Name: BELLA COY MRN: [id number] date: 1955 Sex: F Assigned Patient Location: US Current Patient Location: US Accession/Order Number: [id number] Exam Date: 10/15/2024 15:30 Report Date: 10/15/2024 15:35 At the request of: SHIRA LIANG Procedure: US renal BI Bilateral Renal Ultrasound HISTORY: History of kidney stones. Right flank pain. History of multiple lithotripsies. COMPARISON: 04/30/2024 RIGHT kidney measures 10.0 cm. LEFT kidney measures 9.9 cm. Hydronephrosis: None RENAL STONE: Largest right stone inferior pole measures up to 10 mm. Echogenic focus of midportion of left kidney measures up to 15 mm. RENAL LESIONS: Anechoic 2.1 cm superior pole right renal cyst with septation and echogenic foci identified. Suggest mildly complex cyst. URINARY BLADDER: Unremarkable REPRODUCTIVE STRUCTURES Not assessed IMPRESSION : No hydronephrosis. Bilateral nephrolithiasis as described above. Similar Mildly complex right renal cyst likely benign. Impression dictated by: Deepak Acosta M.D.10/15/2024 3:35 PM Dictation Location: [place] [address] Electronically authenticated by: [id number] Y Date: 10/15/2024 15:35 Dictated By: Deepak Acosta D.O. Signed By: 10/15/24 1537 DD/ 34 TD/TT: Button Broacher: US renal BI Reviewed date:10/15/2024 04:08:05 PM Interpretation: Performing Lab: Notes/Report: Source Facility: [place] [address] Ultrasound Report Signed Patient: BELLA COY MR#: [id number] : 1955 Acct:[id number] Age/Sex: 69 / F ADM Date: 10/15/24 Loc: Attending Dr: Shira LIANG Ordering Physician: Shira Gibson Date of Service: 10/15/24 Procedure(s): US renal BI Accession Number(s): [id number] cc: Shira Gibson; Yulia Hudson NP [place] [address] Patient Name: BELLA COY MRN: [id number] date: 1955 Sex: F Assigned Patient Location: US Current Patient Location: US Accession/Order Number: [id number] Exam Date: 10/15/2024 15:30 Report Date: 10/15/2024 15:35 At the request of: SHIRA LIANG Procedure: US renal BI Bilateral Renal Ultrasound HISTORY: History of kidney stones. Right flank pain. History of multiple lithotripsies. COMPARISON: 04/30/2024 RIGHT kidney measures 10.0 cm. LEFT kidney measures 9.9 cm. Hydronephrosis: None RENAL STONE: Largest right stone inferior pole measures up to 10 mm. Echogenic focus of midportion of left kidney measures up to 15 mm. RENAL LESIONS: Anechoic 2.1 cm superior pole right renal cyst with septation and echogenic foci identified. Suggest mildly complex cyst. URINARY BLADDER: Unremarkable REPRODUCTIVE STRUCTURES Not assessed IMPRESSION : No hydronephrosis. Bilateral nephrolithiasis as described above. Similar Mildly complex right renal cyst likely benign. Impression dictated by: Deepak Acosta M.D.10/15/2024 3:35 PM Dictation Location: [place] [address] Electronically authenticated by: [id number] Y Date: 10/15/2024 15:35 Dictated By: Deepak Acosta D.O. Signed By: 10/15/24 1537 DD/ 1535 TD/TT: Button Broacher: XR abdomen 1V Reviewed date:10/15/2024 04:08:11 PM Interpretation: Performing Lab: Notes/Report: Source Facility: [place] [address] XRay Report Signed Patient: BELLA COY MR#: [id number] : 1955 Acct:[id number] Age/Sex: 69 / F ADM Date: 10/15/24 Loc: US Attending Dr: Shira LIANG Ordering Physician: Shira Gibson Date of Service: 10/15/24 Procedure(s): XR abdomen 1V Accession Number(s): [id number] cc: Shira Gibson; Yulia Hudson NP [place] [address] Patient Name: BELLA COY MRN: [id number] date: 1955 Sex: F Assigned Patient Location: US Current Patient Location: US Accession/Order Number: [id number] Exam Date: 10/15/2024 15:35 Report Date: 10/15/2024 15:39 At the request of: SHIRA LIANG Procedure: XR abdomen 1V Single view of abdomen COMPARISON: CT of abdomen and pelvis 11/22/2023 HISTORY: Kidney stones. Right flank pain. THORAX: Lung bases unremarkable. FREE AIR: Supine position limits assessment BOWEL: No gaseous intestinal distention. STOOL: Moderate constipation RENAL STONES: Left nephrolithiasis measuring up to 4 mm. No bladder or ureteral stone seen. VASCULAR CALCIFICATIONS: Unremarkable SOFT TISSUE: Unremarkable BONES: Unremarkable POSTSURGICAL CHANGES: None XR/XR abdomen 1V IMPRESSION: Left nephrolithiasis. Impression dictated by: Deepak Acosta M.D.10/15/2024 3:39 PM Dictation Location: [place] [address] Electronically authenticated by: [id number] Y Date: 10/15/2024 15:39 Dictated By: Deepak Acosta D.O. Signed By: 10/15/24 1541 DD/ 1539 TD/TT: Button Broacher: Reason For Referral No Information Medications Medication SIG (Take, Route, Frequency, Duration) Notes Start Date End Date Status Clopidogrel Bisulfate 75 MG 1 tablet Ora lly Once a day Active Aspirin 81 81 MG 1 tablet Orally Once a day Active Citalopram Hydrobromide 40 MG 1 tablet Orally Once a day for 90 days Active Cyclobenzaprine HCl 5 MG 1 tablet at bed time as needed Orally Once a day for 30 days 10/29/2024 Active Nitroglycerin 0.4 MG 1 tablet under the tongue and allow to dissolve as needed. Take every 5 minutes up to 3 times if chest pain persists Sublingual Three times a day PRN Active traMADol HCl Active Ciprofloxacin HCl 500 MG 1 tablet Orally every 12 hrs for 7 days 05/28/2024 Unknown Meloxicam 7.5 MG 1 tablet Orally twic e daily for 30 days 10/29/2024 Active Lisinopril 40 mg TAKE ONE TABLET BY MOUTH DAILY for 90 Active Omeprazole 40 MG 1 capsule 30 minutes before morning meal Orally Once a day for 30 days 08/24/2021 Active Rosuvastatin Calcium 40 MG 1 tablet Oral ly Once a day for 90 days 03/21/2023 Active Cholecalciferol 25 MCG (1000 UT) 1 capsule Orally Once a day for 90 days 08/01/2023 Active Alendronate Sodium 70 MG 1 tablet 30 min utes before the first food, beverage or medicine of the day with plain water Orally once weekly for 90 days 08/01/2023 Active Social History Tobacco Use: Social History Observation Description Date Details (start date - stop date) Current Smoker 11/18/1976 - NA Sex Assigned At : Social History Observation Description Sex Assigned At Female Household Question Answer Notes Marital status: Number of adults in household: 1 Number of children in household: 0 Jewish: Spiritism Level of education: finished high school Tobacco Use/Smoking Question Answer Notes Tobacco use: current smoker patient enter ed data When did you start smoking? 11/18/1976 p atient entered data How often do you smoke cigarettes? some days, but not every day patient entered data How many cigarettes a day do you smoke? 5 or less patient entered data How soon after you wake up d o you smoke your first cigarette? after 60 minutes patient entered jessica a Are you interested in quitting? Not ready to denilson t patient entered data When did you start smoking? 07/10/1975 Additional Findings: Tobacco User Light cigarette smoker ((1-9 cigs/day) CAGE-AID Questionnaire (2018 Edition) Question Answer Notes Have you ever felt that you ought to cut down on your drinking or drug use? No patient entered data Have people annoyed you by c riticizing your drinking or drug use? No patient entered data Have you ever felt bad or gu ilty about your drinking or drug use? No patient entered data Have you ever had a drink or used drugs first thing in the morning to steady your nerves or to get rid of a hangover? No patient entered data CAGE-AID Score 0 Interpretation Negative PRAPARE Question Answer Notes Date Completed/Updated: 08/02/2023 laura nt entered data What is your current housing situation? I have housing patient entered data Are you worried about losing your housing? No patient entered data What is the highest level of school that you have finished? High school diploma or GED patient entered data What is your current work situation? Otherwise unemployed but not seeking work (ex. student, retired, disabled, unpaid primary senior caregiver) patient entered data Has lack of transportation k ept you from medical appointments, meetings, work or from getting things needed for daily living? No How often do you see or talk to people that you care about and feel close to? (For example: talking to friends on the phone, visiting friends or family, going to congregation or club meetings) More than 5 times a week patient entered data How stressed are you? Stress is when someone feels tense, nervous, anxious, or can't sleep at night because their mind is troubled A little bit patient entered data In the past year have you sp ent more than 2 nights in a row in a chcf, residential, alf center, or juvenile correctional facility? No patient entered data Are you a refugee? No patient en tered data What country are you from? [place] arun rothman entered data Do you feel physically and emotionally safe where you currently live? Yes patient entered data In the past year, have you b een afraid of your partner or ex-partner? No patient entered data PRAPARE Score: 5 Problems Problem Type SNOMED Code ICD Code Onset Dates Problem Status W/U Status Risk Notes Problem 707404204 Mixed hyperlipidemia (E78.2) Active confirmed Problem 3649972 Primary insomnia (F51.01) Active confirmed Problem Tobacco user (511764833) Cigarette nicotine dependence without complication (F17.210) Active confirmed Problem 451085731 Mild episode of recurrent major depressive disorder (F33.0) Active confirmed Problem 867378488 Dizziness (R42) Active confirmed Problem 00118240 Hiatal hernia (K44.9) Active confirmed Problem 43893619 Kidney stones (N20.0) Active confirmed Problem Blood chemistry abnormal (614470886) Elevated TSH (R79.89) Active confirmed Problem 78242425 Neck pain (M54.2) Active confirmed Problem Body mass index 25-29 - overweight (361680394) BMI 25.0-25.9,adult (Z68.25) Active confirmed Problem 958958398 Osteopenia, unspecified location (M85.80) Active confirmed Problem Chronic depression (829773684) Chronic depression (F32.A) Active confirmed Problem 30026795 Coronary artery disease involving [place] heart, unspecified vessel or lesion type, unspecified whether angina present (I25.10) Active confirmed Problem Essential hypertension (91155595) Essential hypertension (I10) Active confirmed Comment:BP well-control led. continue lisinopril., Problem Anxiety (81986610) Anxiety (F41.9) Active confi rmed Comment:sundar newell well - continue the celexa - if this comes back - consider counseling, Problem Perimenopausal atrophic vaginitis (370757013) Perimenopausal atrophic vaginitis (N95.2) Active confirmed Comment:Not symptomatic but likely cause of tear and bleeding. Discussed topical estrogen, and its risks and benefits but patient not interested at this point. Alternativel y, she was advised to try olive oil for lubrication of the perineum as needed., Problem Gastroesophageal reflux disease (849934110) GERD (gastroesophagea l reflux disease) (K21.9) Active confirmed Comment:symp toms controlled with omeprazole avoid eating 2-3hours prior to bedtime. always stay upright after eating for at least 1-2hours. 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) Renal cyst, right (N28.1) Active confirmed Comment:pt scheduled with urologist, Problem Microscopic hematuria (529668259) Microscopic hematuria (R31.29) Active confirmed Comment:pt referred to urology, has history of kidney stones will order CT of abd/pelvis to evaluate for stones, Problem Costochondritis (01503082) Costochondritis (M94.0) Active confirmed Comment:obse rve., Problem Midline cystocele (318456825) Cystocele, midline (N81.11) Problem resolved confirmed Comment:3rd degree cystocele, currently asymptomatic ,, Problem Postmenopausal bleeding (89937658) Postmenopausal bleeding (N95.0) Problem resolved confirmed Comment:Uncl ear if bleeding source is definitely from the vagina. A small posterior fourchette healing tear seems to be healing well, not actively bleeding and nontender possibly could be the source of bleeding, resolved. Will have patient continue to monitor and return if bleeding recurs within few weeks and she thinks it is from the vaginal area.,Story: has been spotting on and off for 7 months, Problem Pain in coccyx (finding) (61307692) Tail bone pain (M53.3) Problem resolved confirmed Comment:onse t after fall, persistent pain affecting ADLS + gait. very slight ecchymoses. will have XR done to r/o any injury to bone. advised icing. 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 Patient does not have bothersome symptoms at this point. Discussed management options including surgical and with pessary. Risks and benefits discussed., Problem Rib fracture (92290359) Rib fracture (S22.39XA) Problem resolved confirmed Comment:righ t side rib fracture, unclear which rib no ER report available, have requested cannot tolerate NSAIDs with GERD issue. take tylenol3 as needed for the next week. continue to rest, avoid overexertion , lifting until pain improved. can take up to 8weeks for healing., Vital Signs Heart Rate 63 /min 10/29/2024 Salomon Ser vando 10/29/2024 03:24:49 PM EDT > Temperature 98.0 degrees Fahrenheit 10/29/2024 Jaime toney Henry 10/29/2024 03:24:49 PM EDT > Respiratory Rate 17 /min 10/29/2024 Latif, Henry 10/29/2024 03:24:49 PM EDT > Height-cm 152.40 cm 10/29/2024 Latif, Ser vando 10/29/2024 03:24:49 PM EDT > Oximetry 100 % 10/29/2024 Latif, Ser vando 10/29/2024 03:24:49 PM EDT > Blood pressure diastolic 88 mm Hg 10/29/2024 Marivel dowu Henry 10/29/2024 03:24:49 PM EDT > Weight-kg 53.98 kg 10/29/2024 Latif, Ser vando 10/29/2024 03:24:49 PM EDT > Height 60.00 in 10/29/2024 Latif, Ser vando 10/29/2024 03:24:49 PM EDT > Blood pressure systolic 138 mm Hg 10/29/2024 Henry Gardiner 10/29/2024 03:24:49 PM EDT > Weight 119 lbs 10/29/2024 Patric Latif 10/29/2024 03:24:49 PM EDT > BMI 23.24 kg/m2 10/29/2024 Patric Latif 10/29/2024 03:24:49 PM EDT > Encounters Encounter Location Date Provider Diagnosis [address], [place] [id number] 02/20/2024 Malou Melo Essential hyperten celestino I10 ; Hyperlipidemia E78.5 ; Depression with anxiety F41.8 and Medication refill Z76.0 [address], [place] [id number] 05/28/2024 [facility] Anxiety F41.9 ; Ba cterial gastroenteritis A04.9 and BMI 23.0-23.9, adult Z68.23 [address], [place] [id number] 06/11/2024 [facility] Acute gastroenteri tis K52.9 and BMI 24.0-24.9, adult Z68.24 [address] [place], [place] [id number] 07/09/2024 [facility] Acute gastroenteri tis K52.9 ; Hiatal hernia K44.9 and BMI 24.0-24.9, adult Z68.24 [address], [place] [id number] 09/27/2024 [facility] Acute nonintractab le headache, unspecified headache type R51.9 and BMI 23.0-23.9, adult Z68.23 [address] [facility] [place] [id number] 10/29/2024 [facility] BMI 23.0-23.9, anastasiya lt Z68.23 and Neck pain M54.2 [address], [place] [id number] 12/12/2023 Nadira Anglim [address] [place], [place] [id number] 05/01/2024 [facility] [address] [place], [place] [id number] 05/14/2024 Malou Melo Anxiety F41.9 [address] [place], [place] [id number] 11/26/2024 [facility] Screening mammogra m for breast cancer Z12.31 Assessments Encounter Date Diagnosis (ICD Code) Assessment Notes Treatment Notes Treatment Clinical Notes Section Notes 06/11/2024 Acute gastroenteritis (ICD-10 - K52.9) Pt reports she completed antibiotic cycle of Ciprofloxacin. Pt follows w/ GI for hx of hernia in [facility] Pt was seeing a prior GI in [place] prior to GI doctor retiring for Diverticulosis. Pt unaware if current GI doctor at [facility] is aware of her Diverticulosis DX. Pt encouraged to mention to doctor and see if a scope should be completed. Pt's Acute Gastroenteritis is of unknown etiology and pt reports she is on the improvement end of things. Stools are starting to become less frequent and now she is having 1 bowel movement daily. Stools are starting to have shape. F/U 1 month 06/11/2024 BMI 24.0-24.9, adult (ICD-10 - Z68.24) 07/09/2024 Acute gastroenteritis (ICD-10 - K52.9) Pt reports she is still having at least one to two episodes of diarrhea daily, but forming some shape Pt reports she follows w/ GI at [facility] and will be seeing them within the next 2 weeks. Desires a colonoscopy, as she is due soon (5 year recommendation d/t finding polyps last). Pt sees GI for her Diverticulitis and Hiatal Hernia. F/U in 3 months 07/09/2024 Hiatal hernia (ICD-10 - K44.9) Pt reports she is still having at least one to two episodes of diarrhea daily, but forming some shape Pt reports she follows w/ GI at [facility] and will be seeing them within the next 2 weeks. Desires a colonoscopy, as she is due soon (5 year recommendation d/t finding polyps last). Pt sees GI for her Diverticulitis and Hiatal Hernia. F/U in 3 months 09/27/2024 BMI 23.0-23.9, adult (ICD-10 - Z68.23) 09/27/2024 Acute nonintractable headache, unspecified headache type (ICD-10 - R51.9) Pt doing well at this time, no concerns. Occasional headaches, but all imaging was WNL Pt to have Lithotripsy done next week w/ Dr. Lott from [facility]. Pt is medically cleared at this visit by PCP (myself). Pt has already been cleared by [facility] at [facility]. Reviewed pt's Labs and Chest XR from 09/20/24, pt completed new EKG today, WNL F/U 6 months or PRN 10/29/2024 BMI 23.0-23.9, adult (ICD-10 - Z68.23) 10/29/2024 Neck pain (ICD-10 - M54.2) RX sent for Mobic and Flexeril at this time to manage pt's headaches and arm pain Pt denies worsening headaches or losing consciousness or vision since her fall Pt provided w/ suggestions in obtaining a Life Alert, as it would be ideal for her at this time. Discussed reassuring vs non reassuring signs related to concusssions and when to RTC or go to the ER. F/U 5 months or PRN 11/26/2024 Screening mammogram for breast cancer (ICD-10 - Z12.31) 02/20/2024 Essential hypertension (ICD-10 - I10) 02/20/2024 Hyperlipidemia (ICD-10 - E78.5) 05/14/2024 Anxiety (ICD-10 - F41.9) 05/28/2024 Anxiety (ICD-10 - F41.9) Anxiety stable. Increasing current medications. Advised pt if they are have suicidal or homicidal to call 911 or go to the ER. F/u 3 months & PRN 05/28/2024 Bacterial gastroenteritis (ICD-10 - A04.9) Pt having diarrhea for about a week. Pt follows w/ GI for hx of hernia, GERD; Pt to see them on Sending RX for antibiotic for pt's extended Diarrhea. Encouraged pt to stay hydrated and drink plenty of fluids. R/O C. Diff as pt has not had recent antibiotic treatment. 02/20/2024 Depression with anxiety (ICD-10 - F41.8) increase celexa f.u in 4 weeks or sooner if needed 07/09/2024 BMI 24.0-24.9, adult (ICD-10 - Z68.24) 02/20/2024 Medication refill (ICD-10 - Z76.0) 05/28/2024 BMI 23.0-23.9, adult (ICD-10 - Z68.23) Plan Of Treatment Pending Test Test Name Order Date MAMMOGRAM, SCREENING 11/26/2024 Next Appt Details Provider Name:Yulia Hudson , 04/01/2025 03:30:00 PM, [address] [place], [id number], Insurance Providers Payer Name Payer Address Payer Phone Subscriber Number Group Number Insured Name Patient Relationship to Insured Coverage Start Date Coverage End Date [employer] [address] [address] [place] [address] [id number] Julia Bella Self - patient is the insured 1 [employer] [address] [place], [place] [phone] [id number] CoyBella Self - patient is the insured 3 3 Medicare NGS PPS [address] [place], [place] [id number] Julia Bella Self - patient is the insured 1 1 Medical (General) History Medical History History ICD Code Costochondritis Depression with anxiety Endometriosis Essential hypertension GERD (gastroesophageal reflux disease) Hyperlipidemia Kidney stones Ovarian Cyst Surgical History Surgery Date(Month/Year) Colonoscopy--Colon Polyp Removed(2013 co lonoscopy) 2020 Tubal Ligation Ablation 07/10/2003 D&C 08/10/2014 Hysterectomy 01/15/2018 EXTENSIVE HYSTERECTOMY Hospitalization History Reason Date(Month/Year) hospitalized for kidney stones multiple times
--- OUTSIDE RECORDS SUMMARY | 2024-11-29 14:30 | XMS_ITS | Clinical Summary ---
Author Organization [employer] [facility] Address [id number] [address] [place] [address] Care Team Providers Care Housekeeping Coordinator Name Role Phone Services, [facility] Primary Care Provider Allergies No known active allergies Medications citalopram (CeleXA) 20 mg tablet Take 1 tablet (20 mg total) by mouth in the morning. Active lisinopriL (PRINIVIL,ZESTRIL ) 40 mg tablet Take 1 tablet (40 mg total) by mouth in the morning. Active omeprazole (PriLOSEC) 40 mg capsule Take 1 capsule (40 mg total) by mouth in the morning. Active aspirin 81 mg Take 1 tablet (81 mg total) by mouth in the morning. 3 Active rosuvastatin (CRESTOR) 20 mg tabletIndications :Coronary artery disease of [place] artery of [place] heart with stable angina pectoris Take 1 tablet (20 mg total) by mouth in the morning. 90 tablet 3 3 Active metoprolol succinate XL (TOPROL XL) 25 mg 24 hr tabletIndications :Coronary artery disease of [place] artery of [place] heart with stable angina pectoris,Presence of drug-eluting stent in right coronary artery,Hypertensi ve heart disease without heart failure Take 1 tablet (25 mg total) by mouth nightly. 90 tablet 3 3 Active isosorbide mononitrate (IMDUR) 30 mg 24 hr tablet TAKE 1 TABLET (30 MG TOTAL) BY MOUTH DAILY. 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 Serum studies normal -history of diverticulitis and some looser bowel movements. - Citrate supplement information given. Return to clinic 1 year KUB Hematuria, gross 07/29/2016 Overview (02/14/2022): ==== 02/14/2022 ==== cytology today ==== 10/21/2020 ==== No interval gross hematuria +++++++++ 07/29/2016 ALLSCRIPTS SUMMARY +++++++++++ Evaluated summer 2014. Initial evaluation negative. Serial follow-up. Given some dysuria had repeat study August 2016 cysto retrograde pyelogram negative. ==== 01/14/2019 ==== no interval gross hematuria no dysuria. Last cytology negative. Cytology today Assessment & Plan (01/14/2019 3:24 PM EDT): Return clinic 6 months Assessment & Plan (11/20/2017 3:14 PM EDT): Last cytology negative. Cytology today. No interval gross hematuria Assessment & Plan (03/20/2017 4:44 PM EDT): Cytology today. Return to clinic 6 months. Patient was instructed regarding need for serial hematuria follow up. The patient understands to contact our office should they have gross hematuria or persistent dysuria. Assessment & Plan (08/01/2016 4:26 PM EST): Last cytology negative for cancer. Did have some papillary type cells. Pt with known stones. Pt with negative hematuria evaluation in the past. NO gross hematuria. Still some intermittant dysuria. PLAN: cytology today and repeat cysto and bilateral RPG Nephrolithiasis 07/29/2016 Overview (02/14/2022): ==== 02/14/2022 ==== no interval renal colic. She is to have a KUB in the call the office. Otherwise see her back in a year with a KUB. +++++++++ 07/29/2016 ALLSCRIPTS SUMMARY +++++++++++ Serial follow-up KUB ==== 11/20/2017 ==== small nonobstructing calculi on the left. ==== 01/14/2019 ==== no interval renal colic. Will see what the ultrasound demonstrates. Assessment & Plan (10/21/2020 3:04 PM EDT): Established problem, worsening. KUB demonstrates stable calculi. I evaluated both recent KUB studies. However patient has had some left lower back discomfort. Probably non urologic will obtain an ultrasound to verify. Return clinic 1 year with KUB as long as ultrasound looks okay Assessment & Plan (03/20/2017 4:45 PM EDT): KUB 6 months Assessment & Plan (08/01/2016 4:28 PM EST): KUB stable stones Renal cyst 07/29/2016 Overview (02/14/2022): ==== 02/14/2022 ==== no flank pain consistent with any renal colic. Patient had renal ultrasound. Call the office for the results. Otherwise see her in one year with the ultrasound. ==== 10/21/2020 ==== No gross hematuria. Since she is getting ultrasound evaluate flank pain interested to see what the cyst demonstrates. +++++++++ 07/29/2016 ALLSCRIPTS SUMMARY +++++++++++ 2014 multiple bilateral small renal cysts. -September 2015 ultrasound demonstrates small cyst upper pole each kidney. ==== 01/14/2019 ==== the renal ultrasound not obtained. Will obtain in the interim. Patient call for results. Assessment & Plan (11/20/2017 3:16 PM EDT): Renal ultrasound 6 months Family History Medical History Relation Name Comments Arrhythmia Brother Heart attack Brother Heart attack Father Breast cancer Maternal Aunt Coronary artery disease Maternal Grandmother Breast cancer Maternal great-grandmother maybe 70s Relation Name Status Comments Brother Alive Father Maternal Aunt Maternal Grandmother (Age 92) Maternal great-grandmother Mother Alive Social History Tobacco Use Types Packs/Day Years Used Date Smoking Tobacco: Every Day Cigarettes Smokeless Tobacco: Never Tobacco Cessation:Ready to Q uit: Not Asked; Counseling Given: Not Answered Comments:has been decreasing daily Alcohol Use Standard Drinks/Week Comments Not Currently 0 (1 standard drink = 0.6 oz pur e alcohol) social--rare Childcare Answer Date Recorded Childcare Unknown 12/19/2018 Employment Answer Date Recorded Employment Unknown 12/19/2018 Hunger Screening Answer Date Recorded Within the past 12 months we worried whether our food would run out before we got money to buy more. Never True 07/01/2024 Within the past 12 months th e food we bought just didn't last and we didn't have money to get more. Never True 07/01/2024 Purpose - Life Answer Date Recorded Purpose and direction in life Unknown Comments No Sex and Gender Information Value Date Recorded Sex Assigned at Not on file Legal Sex Female 12:11 PM EDT Gender Identity Not on file Sexual Orientation Not on file Last Filed Vital Signs Vital Sign Reading Time Taken Comments Blood Pressure 140/72 07/01/2024 11:39 AM EST Pulse 60 07/01/2024 11:39 AM EST Temperature 35.8 C (96.5 F) 12/24/2020 8:18 AM EDT Respiratory Rate 18 02/14/2022 4:57 PM EDT Oxygen Saturation 100% 07/01/2024 11:39 AM EST Inhaled Oxygen Concentration - - Weight 55.2 kg (121 lb 9.6 oz) 07/01/2024 11:39 AM EST Height 154.9 cm (5' 1 ) 07/01/2024 11:39 AM EST Body Mass Index 22.98 07/01/2024 11:39 AM EST Plan of Treatment Upcoming Encounters Date Type Department Care Team (Late st Contact Info) Description 12/31/2024 1:00 PM EDT Office Visit [facility] [address] [place] [address] Li Andres, PATIENT FINANCIAL COUNSELOR-DENITRATOR [address] [place] [id number] Health Maintenance Due Date Last Done Comments Tobacco Counseling 1955 Depression Screening 1967 DTaP,Tdap and Td Vaccines (1 - Tdap) 1974 Zoster (Shingles) Vaccine (1 of 2) 2005 Fall Risk Screening 2020 Influenza Vaccine 03/10/2025 Adult BMI Screening 07/01/2025 07/01/2024 Tobacco Screening 07/01/2025 07/01/2024 Medical Devices Not on file Insurance [employer] MEDICARE * Guarantor: Bella Dumont Account Type Relation to Patient Date of Phone Billing Address Legacy Self 1955 [address] [place] [address] Care Teams Housekeeping Coordinator Relationship Specialty Start Date End Date Services, [facility] [address] [place], [place] PCP - General Family Medicine 07/01/24
--- NOTE | 2024-11-29 14:33 | CT_ITS ---
The [address] [address] Patient Name: SLY COY MRN: [id number] date: 1955 Sex: F Assigned Patient Location: CT Current Patient Location: CT Accession/Order Number: [id number] Exam Date: 11/29/2024 15:06 Report Date: 11/29/2024 15:11 At the request of: SHIRA LIANG Procedure: CT abdomen pelvis wo con CT Abdomen and Pelvis withoutcontrast TECHNIQUE: Axial imaging with 2-D reconstruction. . The CT exam was performed using one or more the following dose reduction techniques: Automated exposure control, adjustment of the MA and/or Kv according to patient size, or use of the iterative reconstruction technique. COMPARISON: 11/22/2023 History: History of kidney stones LIMITATIONS: None LOWER THORAX small hiatal hernia LIVER: Unremarkable GALLBLADDER: No gallbladder abnormality identified. BILE DUCTS: No dilatation SPLEEN: Unremarkable PANCREAS: Unremarkable ADRENAL GLANDS: Unremarkable KIDNEYS:Simple right renal cyst. 7 mm nonobstructing right renal calculus. Punctate nonobstructing left renal calculi. Small simple left renal cyst. AORTA: No abdominal aortic aneurysm identified. Atherosclerosis RETROPERITONEUM: No significant retroperitoneal abnormalities identified. MESENTERY:Unremarkable SMALL BOWEL: The small bowel loops are nondistended. APPENDIX: The appendix is normal. COLON: Unremarkable URINARY BLADDER: Urinary bladder is unremarkable. REPRODUCTIVE SYSTEM: Reproductive structures are unremarkable. PNEUMOPERITONEUM: None PERITONEAL FLUID:None BONY STRUCTURES: Bilateral L5 pars defects. A mild L5-S1 anterolisthesis. ABDOMINAL WALL: Unremarkable CT/CT abdomen pelvis wo con IMPRESSION: Similar Nonobstructing bilateral renal calculi. No hydronephrosis. Impression dictated by: Deepak Acosta M.D. 11/29/2024 3:11 PM Dictation Location: [facility] Electronically authenticated by: [id number] Y Date: 11/29/2024 15:11
== END 2024-11-29 14:28 | disposition home or self-care (01) ==
LOC: CT 14:27
PROVIDERS: Visit Provider Student in an Organized Health Care Education/Training Program
DX: R10.9 Unspecified abdominal pain (principal); N20.0 Calculus of kidney
CPT/HCPCS: 74176

== ENCOUNTER 2025-03-13 23:47 | Emergency (ER) | payer MEDICARE, SELFPAY ==
--- OUTSIDE RECORDS SUMMARY | 2024-12-10 11:30 | XMS_ITS ---
Author Organization [facility] vices Address [address] [place] [id number] Care Team Providers Care Hydroelectric Plant Operator Name Role Phone Tristan Yulia Primary Care Provider [phone] REASON FOR VISIT HLD & HLD Social History Sex Assigned At : Social History Observation Description Sex Assigned At Female Encounters Encounter Location Date Provider Diagnosis [place] [address] [place] [id number] 12/10/2024 Yulia Hudson Plan Of Treatment Next Appt Details Provider Name:Yulia Hudson , 04/01/2025 03:30:00 PM, [address] [place], [place], [phone], Progress Notes * Janice COYaDOB:1955 (69 yo F)Acc No.[id number]:12/10/2024 Medical Note Patient: Bella PALUMBO Provider: Nyla Hudson :1955 A ge:69 Y S ex:Female Date:12/10/2024 Address:[address] [facility] [address] [place], [id number] Subjective: * Chief Complaints: * 1 . HLD & HLD. * Medical History: Objective: * Vitals: Assessment: Plan: * Treatment: * Billing Information: * Visit Code: * Procedure Codes: * Electronic signature of IZABELA Gayle sa on 03/13/2025 at 11:53 PM EDT Sign off status: Pending * Provider: Nyla Hudson Date: 0 12/10/2024 Generated for Efren chao/Amrit/Jacque on: 0 03/13/2025 11:53 PM EDT
--- OUTSIDE RECORDS SUMMARY | 2025-03-13 23:53 | XMS_ITS | Patient Health Record ---
Author Organization [facility] vices Address [address] [place], [place] [id number] Care Team Providers Care Manager Pricing Name Role Phone Yulia Hudson Primary Care Provider Malou Alejo Unavailable [phone] Allergies No Known Allergies Results Component Value Reference Range Notes CT abdomen pelvis wo con Reviewed date:11/30/2024 10:57:50 AM Interpretation: Performing Lab: Notes/Report: Source Facility: [place] [address] CT Scan Report Signed Patient: EBLLA COY MR#: [id number] : 1955 Acct:[id number] Age/Sex: 69 / F ADM Date: 11/29/24 Loc: CT Attending Dr: Shira LIANG Ordering Physician: Shira Gibson Date of Service: 11/29/24 Procedure(s): CT abdomen pelvis wo con Accession Number(s): [id number] cc: Yulia Hudson NP [place] [address] Patient Name: BELLA COY MRN: [id number] date: 1955 Sex: F Assigned Patient Location: CT Current Patient Location: CT Accession/Order Number: [id number] Exam Date: 11/29/2024 15:06 Report Date: 11/29/2024 15:11 At the request of: SHIRA LIANG Procedure: CT abdomen pelvis wo con CT Abdomen and Pelvis withoutcontrast TECHNIQUE: Axial imaging with 2-D reconstruction. . The CT exam was performed using one or more the following dose reduction techniques: Automated exposure control, adjustment of the MA and/or Kv according to patient size, or use of the iterative reconstruction technique. COMPARISON: 11/22/2023 History: History of kidney stones LIMITATIONS: None LOWER THORAX small hiatal hernia LIVER: Unremarkable GALLBLADDER: No gallbladder abnormality identified. BILE DUCTS: No dilatation SPLEEN: Unremarkable PANCREAS: Unremarkable ADRENAL GLANDS: Unremarkable KIDNEYS:Simple right renal cyst. 7 mm nonobstructing right renal calculus. Punctate nonobstructing left renal calculi. Small simple left renal cyst. AORTA: No abdominal aortic aneurysm identified. Atherosclerosis RETROPERITONEUM: No significant retroperitoneal abnormalities identified. MESENTERY:Unremarkable SMALL BOWEL: The small bowel loops are nondistended. APPENDIX: The appendix is normal. COLON: Unremarkable URINARY BLADDER: Urinary bladder is unremarkable. REPRODUCTIVE SYSTEM: Reproductive structures are unremarkable. PNEUMOPERITONEUM: None PERITONEAL FLUID:None BONY STRUCTURES: Bilateral L5 pars defects. A mild L5-S1 anterolisthesis. ABDOMINAL WALL: Unremarkable CT/CT abdomen pelvis wo con IMPRESSION: Similar Nonobstructing bilateral renal calculi. No hydronephrosis. Impression dictated by: Deepak Acosta M.D. 11/29/2024 3:11 PM Dictation Location: [place] [address] Electronically authenticated by: [id number] Y Date: 11/29/2024 15:11 Dictated By: Deepak Acosta D.O. Signed By: 11/29/24 1514 DD/ 1511 TD/TT: Energy Infrastructure Engineer: XR abdomen 1V Reviewed date:10/15/2024 04:08:11 PM Interpretation: Performing Lab: Notes/Report: Source Facility: [facility]-[address] [place] [address] [place] [address] XRay Report Signed Patient: BELLA COY MR#: [id number] : 1955 Acct:[id number] Age/Sex: 69 / F ADM Date: 10/15/24 Loc: US Attending Dr: Shira LIANG Ordering Physician: Shira Gibson Date of Service: 10/15/24 Procedure(s): XR abdomen 1V Accession Number(s): [id number] cc: Shira Gibson; Yulia Hudson NP [facility] [place] [address] Patient Name: BELLA COY MRN: [id number] date: 1955 Sex: F Assigned Patient Location: US Current Patient Location: US Accession/Order Number: [id number] Exam Date: 10/15/2024 15:35 Report Date: 10/15/2024 [...] Deepak Acosta M.D.10/15/2024 3:39 PM Dictation Location: [place] [address] Electronically authenticated by: [id number] Date: 10/15/2024 15:39 Dictated By: Deepak Acosta D.O. Signed By: 10/15/24 1541 DD/ 1539 TD/TT: Energy Infrastructure Engineer: US renal BI Reviewed date:10/15/2024 04:08:05 PM Interpretation: Performing Lab: Notes/Report: Source Facility: [place] [address] [place] [address] Ultrasound Report Signed Patient: BELLA COY MR#: [id number] : 1955 Acct:[id number] Age/Sex: 69 / F ADM Date: 10/15/24 Loc: US Attending Dr: Shira LIANG Ordering Physician: Shira Gibson Date of Service: 10/15/24 Procedure(s): US renal BI Accession Number(s): [id number] cc: Shira Gibson; Yulia Hudson NP [place] [address] Patient Name: BELLA COY MRN: [id number] date: 1955 Sex: F Assigned Patient Location: US Current Patient Location: US Accession/Order Number: [id number] Exam Date: 10/15/2024 15:30 Report Date: 10/15/2024 [...] Deepak Acosta M.D.10/15/2024 3:35 PM Dictation Location: [place] [address] Electronically authenticated by: [id number] Y Date: 10/15/2024 15:35 Dictated By: Deepak Acosta D.O. Signed By: 10/15/24 1537 DD/ 1535 TD/TT: Energy Infrastructure Engineer: US renal BI Reviewed date:10/15/2024 04:08:05 PM Interpretation: Performing Lab: Notes/Report: Source Facility: [facility]-[address] [place] [address] Ultrasound Report Signed Patient: BELLA COY MR#: [id number] : 1955 Acct:[id number] Age/Sex: 69 / F ADM Date: 10/15/24 Loc: US Attending Dr: Shira LIANG Ordering Physician: Shira Gibson Date of Service: 10/15/24 Procedure(s): US renal BI Accession Number(s): [id number] cc: Shira Gibson; Yulia Hudson NP [place] [address] Patient Name: BELLA COY MRN: [id number] date: 1955 Sex: F Assigned Patient Location: US Current Patient Location: US Accession/Order Number: [id number] Exam Date: 10/15/2024 15:30 Report Date: 10/15/2024 [...] Deepak Acosta M.D.10/15/2024 3:35 PM Dictation Location: [place] [address] Electronically authenticated by: [id number] Y Date: 10/15/2024 15:35 Dictated By: Deepak Acosta D.O. Signed By: 10/15/24 1537 DD/ 1535 TD/TT: Energy Infrastructure Engineer: ZELALEM barnes 1V Reviewed date:10/02/2024 10:04:27 PM Interpretation: Performing Lab: Notes/Report: Source Facility: [facility]-[address] [place] [address] [place] [address] XRay Report Signed Patient: BELLA COY MR#: [id number] : 1955 Acct:[id number] Age/Sex: 69 / F ADM Date: 10/02/24 Loc: SURGOUT Attending Dr: Elizabeth Lott M.D. Ordering Physician: Elizabeth Lott M.D. Date of Service: 10/02/24 Procedure(s): XR abdomen 1V Accession Number(s): [id number] cc: Elizabeth Lott M.D.; Yulia Hudson NP [place] [address] Patient Name: BELLA COY MRN: [id number] date: 1955 Sex: F Assigned Patient Location: SURGOUT Current Patient Location: [facility] Accession/Order Number: [id number] Exam Date: 10/02/2024 15:27 Report Date: 10/02/2024 15:28 At the request of: ELIZABETH LOTT MD Procedure: XR abdomen 1V KUB: CLINICAL INFORMATION: Kidney stones COMPARISON: KUB report 05/05/2024 FINDINGS: Subtle punctate bilateral nephrolithiasis. Overlying bowel gas limits the evaluation of the right kidney. No bowel obstruction or free air. XR/XR abdomen 1V IMPRESSION: SUBTLE PUNCTATE BILATERAL NEPHROLITHIASIS. Impression dictated by: Robin Mack Jr.OGiselle10/02/2024 3:28 PM Dictation Location: [place] [address] Electronically authenticated by: [id number] Y Date: 10/02/2024 15:28 Dictated By: Dallas Lowe M.D. Signed By: 10/02/24 1531 DD/ 1528 TD/TT: Energy Infrastructure Engineer: ECG 12 lead Reviewed date:09/29/2024 08:17:21 PM Interpretation: Performing Lab: Notes/Report: Source Facility: [place] [address] [place] [address] Electrocardiograph Report Signed Patient: BELLA COY MR#: [id number] : 1955 Acct:[id number] Age/Sex: 69 / F ADM Date: 09/27/24 Loc: CARD Attending Dr: Elizabeth Lott M.D. Ordering Physician: Elizabeth Lott M.D. 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 Measurements Intervals [place] Rate: 60 P: 72 NH: 163 QRS: 61 QRSD: 78 T: 58 QT: 402 QTc: 404 Interpretive Statements SINUS RHYTHM Normal ECG Compared to ECG 03/09/2024 00:44:08 No significant changes Electronically Signed On 09-27-2024 17:38:39 EDT by KAMILAH LANDRY M.D. Dictated By: KAMILAH LANDRY Signed By: 09/27/24 1738 DD/ 0904 TD/TT: Energy Infrastructure Engineer: XR chest 2V Reviewed date:09/26/2024 08:34:46 AM Interpretation: Performing Lab: Notes/Report: Source Facility: [place] [address] XRay Report Signed Patient: BELLA COY MR#: [id number] : 1955 Acct:[id number] Age/Sex: 69 / F ADM Date: 09/20/24 Loc: [facility] Attending Dr: Elizabeth Ltot M.D. Ordering Physician: Elizabeth Lott M.D. Date of Service: 09/20/24 Procedure(s): XR chest 2V Accession Number(s): [id number] cc: Elizabeth Lott M.D.; Yulia Hudson NP [place] [address] Patient Name: BELLA COY MRN: [id number] date: 1955 Sex: F [facility] Location: [facility] Accession/Order Number: [id number] Exam Date: 09/20/2024 15:57 Report Date: 09/20/2024 [...] Deepak Acosta M.D.09/20/2024 3:58 PM Dictation Location: [place] Electronically authenticated by: [id number] Y Date: 09/20/2024 15:58 Dictated By: Deepak Acosta D.O. Signed By: 09/20/24 1600 DD/ 1558 TD/TT: Energy Infrastructure Engineer: [place] Culture [place] [facility] Reviewed date:09/26/2024 08:35:49 AM Interpretation: Performing Lab: Notes/Report: [facility] , Urine Culture - [facility] See Below For Report Urine Culture - [facility] 20,000 colonies/mL mixed bacterial skin contaminants. Urine Culture - FR 2 days. Urine Culture - FR 20,000 colonies/mL mixed bacterial skin contaminants. Urine Culture - FR Urine Culture - [facility] 20,000 colonies/mL mixed bacterial skin contaminants. Urine Culture - FR Testing performed at [facility] Urine Culture - [facility] 20,000 colonies/mL mixed bacterial skin contaminants. Urine Culture - [facility] [address] [place] [address] Urine Culture - FR 20,000 colonies/mL mixed bacterial skin contaminants. Performing Lab: see note ML - [facility] LB Urine Microscopic Reviewed date:09/26/2024 08:35:49 AM Interpretation: Performing Lab: Notes/Report: [facility] , WBC Urine 0-2 NONE SEEN #/HPF RBC Urine 0-2 0-2 #/HPF Bacteria Urine MODERATE NONE SEEN #/HPF Mucus Urine NONE SEEN NONE SEEN Squamous Epithelial Cell Urine FEW NONE/RARE #/LPF Crystals Seen? None Seen None Seen #/HPF Cast Seen? NONE SEEN NONE SEEN #/LPF Urine Culture Indicated YES-[facility] Performing Lab: see note - [facility] UA Culture/Micro if Indicate d Reviewed date:09/26/2024 08:35:49 AM Interpretation: Performing Lab: Notes/Report: [facility] , Color Urine YELLOW YELLOW Clarity Urine CLEAR CLEAR Specific [place] Urine 1.020 1.005-1.025 pH Urine 6.0 5.0-9.0 Protein Urine NEGATIVE NEG/TRACE mg/dL Glucose Urine UA NEGATIVE NEGATIVE mg/dL Bilirubin Urine NEGATIVE NEGATIVE Ketones Urine NEGATIVE NEGATIVE mg/dL Blood Urine SMALL NEGATIVE Nitrite Urine NEGATIVE NEGATIVE Urobilinogen Urine 0.2 0.2-1.0 EU/dL Leukocyte Esterase Urine NEGATIVE NEGATIVE Urine Microscopic Indicated YES Performing Lab: see note - [facility] Partial Thromboplastin Time Reviewed date:09/26/2024 08:35:49 AM Interpretation: Performing Lab: Notes/Report: [facility] , Partial Thromboplastin Time 26.5 22.3-36.2 sec Performing Lab: see note - [facility] Prothrombin Time INR Reviewed date:09/26/2024 08:35:49 AM Interpretation: Performing Lab: Notes/Report: [facility] , Prothrombin Time 10.5 9.0-11.6 sec INR 0.99 DESIRED INR: 2.0-3.0 CONDITIONS NOT LISTED BELOW 2.5-3.5 FOR PROSTHETIC HEART VALVE REPLACEMENT 2.5-3.5 RECURRENT THROMBOSIS Performing Lab: see note [facility] Complete Blood Count Auto Di ff Reviewed date:09/26/2024 08:35:49 AM Interpretation: Performing Lab: Notes/Report: [facility] , White Blood Count 7.8 4.0-11.0 10 [...] 0.00-0.03 10 3/uL Performing Lab: see note ML - [facility] LB Basic Metabolic Panel Reviewed date:09/26/2024 08:35:49 AM Interpretation: Performing Lab: Notes/Report: [facility] , Sodium 139 136-145 mmol/L Potassium 4.7 3.5-5.1 mmol/L Chloride 103 98-107 mmol/L Carbon Dioxide 32.1 21.0-32.0 mmol/L Anion Gap 8.6 Glucose 94 74-106 mg/dL Blood Urea Nitrogen 10.0 7.0-18.0 mg/dL Creatinine 0.84 0.55-1.02 mg/dL Estimated GFR ( [place] >60 >=60 mL/min/1.73m 2 Estimated GFR (Non- Pina >60 >=60 mL/min/1.73m 2 BUN Creatinine Ratio 11.9 Calcium 9.3 8.5-10.1 mg/dL Performing Lab: see note ML - [facility] LB Lipid Panel Reviewed date:05/30/2024 12:08:06 PM Interpretation: Performing Lab: Notes/Report: [facility] , Triglycerides 163 <=150 mg/dL Cholesterol 225 [...] >11.0 HIGH RISK Performing Lab: see note - [facility] LB Comprehensive Metabolic Pane l Reviewed date:05/30/2024 12:08:06 PM Interpretation: Performing Lab: Notes/Report: [facility] , Sodium 141 136-145 mmol/L Potassium 4.0 [...] 1.1 Performing Lab: see note ML - [facility] LB XR abdomen 1V Reviewed date:05/06/2024 08:37:33 AM Interpretation: Performing Lab: Notes/Report: Source Facility: [facility]-[address] [place] [address] [place] [address] XRay Report Signed Patient: BELLA COY MR#: [id number] : 1955 Acct:[id number] Age/Sex: 68 / F ADM Date: 04/30/24 Loc: US Attending Dr: Elizabeth Lott M.D. Ordering Physician: Elizabeth Lott M.D. Date of Service: 04/30/24 Procedure(s): XR abdomen 1V Accession Number(s): [id number] cc: NADIRA SUBRAMANIAN ; Elizabeth Lott M.D. [address] [address] Patient Name: BELLA COY MRN: [id number] date: 1955 Sex: F Assigned Patient Location: Current Patient Location: Accession/Order Number: [id number] Exam Date: 04/30/2024 10:10 Report Date: 05/05/2024 [...] MAHMOOD Date: 05/05/2024 06:51 Dictated By: Maverick Mahomod M.D. Signed By: 05/05/2453 DD/ TD/TT: Energy Infrastructure Engineer: renal BI Reviewed date:05/01/2024 01:34:12 PM Interpretation: Performing Lab: Notes/Report: Source Facility: [place] [address] [place] [address] Ultrasound Report Signed Patient: BELLA COY MR#: [id number] : 1955 Acct:[id number] Age/Sex: 68 / F ADM Date: 04/30/24 Loc: US Attending Dr: Elizabeth Lott M.D. Ordering Physician: Lue,Elizabeth M.D. Date of Service: 04/30/24 Procedure(s): US renal BI Accession Number(s): [id number] cc: NADIRA SUBRAMANIAN Kathy M.D. [address] [address] Patient Name: BELLA COY MRN: [id number] date: 1955 Sex: F Assigned Patient Location: US Current Patient Location: Accession/Order Number: [id number] Exam Date: 04/30/2024 10:06 Report Date: 05/01/2024 [...] M.D. Signed By: 05/01/24903 DD/ 0 TD/TT: Energy Infrastructure Engineer: Reason For Referral No Information Medications Medication SIG (Take, Route, Frequency, Duration) Notes Start Date End Date Status Nitroglycerin 0.4 MG 1 tablet under the tongue and allow to dissolve as needed. Take every 5 minutes up to 3 times if chest pain persists Sublingual Three times a day PRN Active Aspirin 81 81 MG 1 tablet Orally Once a day Active Clopidogrel Bisulfate 75 MG 1 tablet Ora lly Once a day Active Alendronate Sodium 70 MG 1 tablet 30 min utes before the first food, beverage or medicine of the day with plain water Orally once weekly; Duration: 90 days 08/01/2023 Active Lisinopril 40 mg TAKE ONE TABLET BY MOUTH DAILY; Duration: 90 Active Meloxicam 7.5 MG 1 tablet Orally twic e daily; Duration: 30 days 10/29/2024 Active Cyclobenzaprine HCl 5 MG 1 tablet at bed time as needed Orally Once a day; Duration: 30 days 10/29/2024 Active Citalopram Hydrobromide 40 MG 1 tablet O rally Once a day; Duration: 90 days Active Rosuvastatin Calcium 40 MG 1 tablet Oral ly Once a day; Duration: 90 days 03/21/2023 Active Omeprazole 40 MG 1 capsule 30 minutes before morning meal Orally Once a day; Duration: 30 days 08/24/2021 Active Cholecalciferol 25 MCG (1000 UT) 1 capsule Orally Once a day; Duration: 90 days 08/01/2023 Active Social History Tobacco Use: Social History Observation Description Date Details (start date - stop date) Current Smoker 11/18/1976 - NA Sex Assigned At : Social History Observation Description Sex Assigned At Female Household Question Answer Notes Marital status: Number of adults in household: 1 Number of children in household: 0 Faith: Confucianism Level of education: finished high school Tobacco [...] 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 No How often do you see or talk to people that you care about and feel close to? (For example: talking to friends on the phone, visiting friends or family, going to confucianist or club meetings) More than 5 times a week patient entered data How stressed are you? Stress is when someone feels tense, nervous, anxious, or can't sleep at night because their mind is troubled A little bit patient entered data In the past year have you sp ent more than 2 nights in a row in a half-way, retirement, intermediate center, or juvenile correctional facility? No patient [...] Problem Status W/U Status Risk Notes Problem Mixed hyperlipidemia (799552848) Mixed hyperlipidemia (E78.2) Active confirmed Problem Primary insomnia (9911122) Primary insomnia (F51.01) Active confirmed Problem Tobacco user (524339448) Cigarette nicotine dependence without complication (F17.210) Active confirmed Problem Mild recurrent major depression (38280498) Mild episode of recurrent major depressive disorder (F33.0) Active confirmed Problem Dizziness (383555888) Dizziness (R42) Active confirmed Problem Midline cystocele (571740544) Female bladder prolapse (N81.10) Active confirmed Problem Hiatal hernia (95736348) Hiatal hernia (K44.9) Active confirmed Problem Kidney stone (71750422) Kidney stones (N20.0) Active confirmed Problem Blood chemistry abnormal (919085153) Elevated TSH (R79.89) Active confirmed Problem Neck pain (93523516) Neck pain (M54.2) Active confirmed Problem Body mass index 25-29 - overweight (096635814) BMI 25.0-25.9,adult (Z68.25) Active confirmed Problem Osteopenia (109792429) Osteopenia, unspecified location (M85.80) Active confirmed Problem Chronic depression (690928475) Chronic depression (F32.A) Active confirmed Problem Atherosclerotic heart disease of [place] coronary artery without angina pectoris (634720748993099) Coronary artery disease involving [place] heart, unspecified vessel or lesion type, unspecified whether angina present (I25.10) Active confirmed Problem Essential hypertension (94571939) Essential hypertension (I10) Active confirmed Comment:BP well-control led. continue lisinopril., Problem Anxiety (79474438) Anxiety (F41.9) Active confi rmed Comment:sundar newell well - continue the celexa - if this comes back - consider counseling, Problem Perimenopausal atrophic vaginitis (622731119) Perimenopausal atrophic vaginitis (N95.2) Active confirmed Comment:Not symptomatic but likely cause of tear and bleeding. Discussed topical estrogen, and its risks and benefits but patient not interested at this point. Alternativel y, she was advised to try olive oil for lubrication of the perineum as needed., Problem Gastroesophageal reflux disease (654443731) GERD (gastroesophagea l reflux disease) (K21.9) Active confirmed Comment:symp toms controlled with omeprazole avoid eating 2-3hours prior to bedtime. always stay upright after eating for at least 1-2hours. 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) Renal cyst, right (N28.1) Active confirmed Comment:pt scheduled with urologist, Problem Microscopic hematuria (886900010) Microscopic hematuria (R31.29) Active confirmed Comment:pt referred to urology, has history of kidney stones will order CT of abd/pelvis to evaluate for stones, Problem Costochondritis (19597658) Costochondritis (M94.0) Active confirmed Comment:obse rve., Problem Midline cystocele (359091678) Cystocele, midline (N81.11) Problem resolved confirmed Comment:3rd degree cystocele, currently asymptomatic ,, Problem Postmenopausal bleeding (72460902) Postmenopausal bleeding (N95.0) Problem resolved confirmed Comment:Uncl [...] 7 months, Problem Pain in coccyx (finding) (66632710) Tail bone pain (M53.3) Problem resolved confirmed Comment:onse t after fall, persistent pain affecting ADLS + gait. very slight ecchymoses. will have XR done to r/o any injury to bone. advised icing. 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 Patient does not have bothersome symptoms at this point. Discussed management options including surgical and with pessary. Risks and benefits discussed., Problem Rib fracture (67939034) Rib fracture (S22.39XA) Problem resolved confirmed Comment:righ t side rib fracture, unclear which rib no ER report available, have requested cannot tolerate NSAIDs with GERD issue. take tylenol3 as needed for the next week. continue to rest, avoid overexertion , lifting until pain improved. can take up to 8weeks for healing., Vital Signs Heart Rate 59 /min 01/23/2025 Latif, Ser vando 01/23/2025 08:49:19 AM EDT > Temperature 98.0 degrees Fahrenheit 01/23/2025 Vald dawna, Henry 01/23/2025 08:49:19 AM EDT > Respiratory Rate 17 /min 01/23/2025 Latif, Henry 01/23/2025 08:49:19 AM EDT > Blood pressure diastolic 71 mm Hg 01/23/2025 Marivel dovinos, Henry 01/23/2025 08:49:19 AM EDT > Oximetry 98 % 01/23/2025 Latif, Ser vando 01/23/2025 08:49:19 AM EDT > Height-cm 152.40 cm 01/23/2025 Latif, Ser vando 01/23/2025 08:49:19 AM EDT > Weight-kg 53.52 kg 01/23/2025 Latif, Ser vando 01/23/2025 08:49:19 AM EDT > Height 60.00 in 01/23/2025 Latif, Ser vando 01/23/2025 08:49:19 AM EDT > Blood pressure systolic 111 mm Hg 01/23/2025 Vald ovdomingo, Henry 01/23/2025 08:49:19 AM EDT > Weight 118 lbs 01/23/2025 Latif, Ser vando 01/23/2025 08:49:19 AM EDT > BMI 23.04 kg/m2 01/23/2025 Latif, Ser vando 01/23/2025 08:49:19 AM EDT > Encounters Encounter Location Date Provider Diagnosis [address] [id number] 05/28/2024 [facility] Anxiety F41.9 ; Ba cterial gastroenteritis A04.9 and BMI 23.0-23.9, adult Z68.23 [address] [id number] 06/11/2024 [facility] Acute gastroenteri tis K52.9 and BMI 24.0-24.9, adult Z68.24 [address] [id number] 07/09/2024 [facility] Acute gastroenteri tis K52.9 ; Hiatal hernia K44.9 and BMI 24.0-24.9, adult Z68.24 [address] [facility] [place] [place] [id number] 09/27/2024 [facility] Acute nonintractab le headache, unspecified headache type R51.9 and BMI 23.0-23.9, adult Z68.23 [address] [facility] [place] [place] [id number] 10/29/2024 [facility] BMI 23.0-23.9, anastasiya lt Z68.23 and Neck pain M54.2 [address] [place], [place] [id number] 01/23/2025 [facility] Female bladder pro lapse N81.10 and BMI 23.0-23.9, adult Z68.23 [address] [place], [place] [id number] 05/01/2024 [facility] [address] [place] [id number] 05/14/2024 Malou Melo Anxiety F41.9 [address] [place], [place] [id number] 11/26/2024 [facility] Screening mammogra m for breast cancer Z12.31 [address] [place], [place] [id number] 01/20/2025 [facility] Anxiety F41.9 Assessments Encounter Date Diagnosis (ICD Code) Assessment Notes Treatment Notes Treatment Clinical Notes Section Notes 01/20/2025 Anxiety (ICD-10 - F41.9) 10/29/2024 BMI 23.0-23.9, adult (ICD-10 - Z68.23) [...] the ER. F/U 5 months or PRN 05/14/2024 Anxiety (ICD-10 - F41.9) 01/23/2025 Female bladder prolapse (ICD-10 - N81.10) Pt bladder prolapse recovery going well at this time. Pt following w/ Urology, F/U MondayJanuary 28 F/U 9..25 01/23/2025 BMI 23.0-23.9, adult (ICD-10 - Z68.23) 11/26/2024 Screening mammogram for breast cancer (ICD-10 - Z12.31) 09/27/2024 BMI 23.0-23.9, adult (ICD-10 - Z68.23) 09/27/2024 Acute nonintractable headache, unspecified headache type (ICD-10 - R51.9) Pt doing well at this time, no concerns. Occasional headaches, but all imaging was WNL Pt to have Lithotripsy done next week w/ Dr. Lott from [facility]. Pt is medically cleared at this visit by PCP (myself). Pt has already been cleared by Career Technical Education Instructor at [facility]. Reviewed pt's Labs and Chest XR from 09/20/24, pt completed new EKG today, WNL F/U 6 months or PRN 06/11/2024 Acute gastroenteritis (ICD-10 - K52.9) Pt reports she completed antibiotic cycle of Ciprofloxacin. Pt follows w/ GI for hx of hernia in [facility] Pt was seeing a prior GI in [place] prior to GI doctor retiring for Diverticulosis. Pt unaware if current GI doctor at [facility] is aware of her Diverticulosis DX. Pt [...] 06/11/2024 BMI 24.0-24.9, adult (ICD-10 - Z68.24) 05/28/2024 Anxiety (ICD-10 - F41.9) Anxiety stable. Increasing current medications. Advised pt if they are have suicidal or homicidal to call 911 or go to the ER. F/u 3 months & PRN 07/09/2024 Acute gastroenteritis (ICD-10 - K52.9) Pt reports she is still having at least one to two episodes of diarrhea daily, but forming some shape Pt reports she follows w/ GI at [facility] and will be seeing them within the [...] Pt reports she follows w/ GI at [facility] and will be seeing them within the next 2 weeks. Desires a colonoscopy, as she is due soon (5 year recommendation d/t finding polyps last). Pt sees GI for her Diverticulitis and Hiatal Hernia. F/U in 3 months 07/09/2024 BMI 24.0-24.9, adult (ICD-10 - Z68.24) 05/28/2024 Bacterial gastroenteritis (ICD-10 - A04.9) Pt having diarrhea for about a week. Pt follows w/ GI for hx of hernia, GERD; Pt to see them on Sending RX for antibiotic for pt's extended Diarrhea. Encouraged pt to stay hydrated and drink plenty of fluids. R/O C. Diff as pt has not had recent antibiotic treatment. 05/28/2024 BMI 23.0-23.9, adult (ICD-10 - Z68.23) Plan Of Treatment Next Appt Details Provider Name:Yulia Hudson , 04/01/2025 03:30:00 PM, [facility] [place], [id number], Insurance Providers Payer Name Payer Address Payer Phone Subscriber Number Group Number Insured Name Patient Relationship to Insured Coverage Start Date Coverage End Date [employer] Medicare [address] [address] [place] [address] [id number] Bella Coy Self - patient is the insured [employer] [address] [place], [place] [id number] Bella Coy Self - patient is the insured 3 3 Medicare NGS PPS [address] [place], [place] [id number] Bella Coy Self - patient is the insured 1 1 Medical (General) History Medical History History ICD Code Costochondritis Depression with anxiety Endometriosis Essential hypertension GERD (gastroesophageal reflux disease) Hyperlipidemia Kidney stones Ovarian Cyst Surgical History Surgery Date(Month/Year) Colonoscopy- Colon Polyp Removed(2013 co lonoscopy) 2020 Tubal Ligation Ablation 07/10/2003 D&C 08/10/2014 Hysterectomy 01/15/2018 EXTENSIVE HYSTERECTOMY Hospitalization History Reason Date(Month/Year) hospitalized for kidney stones multiple times
--- OUTSIDE RECORDS SUMMARY | 2025-03-13 23:53 | XMS_ITS | Clinical Summary ---
Author Organization [employer] Address [id number] [address] [place] [address] Care Team Providers Care Middle School Humanities Teacher Name Role Phone Services, [facility] Primary Care Provider Allergies No known active allergies Medications citalopram (CeleXA) 20 mg tablet Take 1 tablet (20 mg total) by mouth in the morning. Active omeprazole (PriLOSEC) 40 mg capsule Take 1 capsule (40 mg total) by mouth in the morning. Active nitroglycerin (NITROSTAT) 0.4 MG SL tablet 1 under the tongue as needed for angina, may repeat q5mins for up three doses 30 tablet 3 07/01/2024 Active alendronate (FOSAMAX) 70 mg tablet Take 1 tablet (70 mg total) by mouth every 7 days. In a.m. with water on empty stomach, nothing else by mouth and remain upright for 30min Active clopidogreL (PLAVIX) 75 mg tablet Take 1 tablet (75 mg total) by mouth every morning. 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 90 tablet 3 12/31/2024 Active isosorbide mononitrate (IMDUR) 30 mg 24 hr tablet Take 1 tablet (30 mg total) by mouth daily. 90 tablet 3 12/31/2024 Active lisinopriL (PRINIVIL,ZESTRI L) 40 mg tablet Take 1 tablet (40 mg total) by mouth in the morning. 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 90 tablet 3 12/31/2024 Active cholecalciferol (VITAMIN D3) 1,000 units tablet Take 1 tablet (1,000 Units total) by mouth in the morning. 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 Never True 12/31/2024 Within the past 12 months th e food we bought just didn't last and we didn't have money to get more. Never True 12/31/2024 Purpose - Life Answer Date Recorded Purpose and direction in life Unknown Comments No Sex and Gender Information Value Date Recorded Sex Assigned at Not on file Legal Sex Female 12:11 PM EDT Gender Identity Not on file Sexual Orientation Not on file Last Filed Vital Signs Vital Sign Reading Time Taken Comments Blood Pressure 116/66 12/31/2024 12:40 PM EDT Pulse 92 12/31/2024 12:40 PM EDT Temperature 35.8 C (96.5 F) 12/24/2020 8:18 AM EDT Respiratory Rate 18 02/14/2022 4:57 PM EDT Oxygen Saturation 98% 12/31/2024 12:40 PM EDT Inhaled Oxygen Concentration - - Weight 54.9 kg (121 lb) 12/31/2024 12:40 PM EDT Height 154.9 cm (5' 1 ) 12/31/2024 12:40 PM EDT Body Mass Index 22.86 12/31/2024 12:40 PM EDT Plan of Treatment Health Maintenance Due Date Last Done Comments Tobacco Counseling 1955 Depression Screening 1967 Zoster (Shingles) Vaccine (1 of 2) 2005 Fall Risk Screening 2020 COVID-19 Vaccine ( season) 03/10/202409/2020, 02/19/2021 Influenza Vaccine 03/10/2025 Adult BMI Screening 12/31/2025 12/31/2024 Tobacco Screening 12/31/2025 12/31/2024 DTaP,Tdap and Td Vaccines (2 - Td or Tdap) 09/30/2032 09/30/2022 Medical Devices Not on file Procedures Procedure Name Priority Date/Time Associated Diagnosis Comments POCT EKG Routine 12/31/2024 Hx of right coronary artery stent placement XR WRIST LT MIN 3 VWS Routine 12/25/2024 4:12 PM EDT XR SHOULDER LT MIN 2 VWS Routine 12/25/2024 4:08 PM EDT XR ELBOW LT MIN 3 VWS Routine 12/25/2024 4:06 PM EDT MULTIPLE LABS Routine 12/23/2024 8:47 AM EDT from Last 3 Months Results * POCT EKG (12/31/2024) us Li Adnres GEOTECHNICAL ENGINEER-FORM SETTER [address]AL [address] FORMS ECG ORDERABLES Final Resu lt Performing Organization Address [facility] de Phone Number MANUALLY TRANSCRIBED RESULTS * X-ray wrist left minimum 3 views (12/25/2024 4:12 PM EDT) Anatomical Region Laterality Modality MSK, Upper Extremities, Wrist Left Co mputed Radiography us Not In System Ref Prov IMG DIAGNOSTIC IMAGING OR DERABLES Final Result * X-ray shoulder left minimum 2 views (12/25/2024 4:08 PM EDT) Anatomical Region Laterality Modality MSK, Upper Extremities, Shoulder Left Computed Radiography us Not In System Ref Prov IMG DIAGNOSTIC IMAGING OR DERABLES Final Result * X-ray elbow left minimum 3 views (12/25/2024 4:06 PM EDT) Anatomical Region Laterality Modality Upper Extremities, MSK, Elbow Left Co mputed Radiography us Not In System Ref Prov IMG DIAGNOSTIC IMAGING OR DERABLES Final Result * Multiple labs (12/23/2024 8:47 AM EDT) us Scanning Provider External HI IMAGING Final Result Performing Organization Address [facility] de Phone Number MANUALLY TRANSCRIBED RESULTS from Last 3 Months Insurance HU[employer] MEDICARE * Guarantor: Bella Dumont Account Type Relation to Patient Date of Phone Billing Address Legacy Self 1955 [address] [place] [address] Care Teams Middle [employer] Humanities Teacher Relationship Specialty Start Date End Date Services, [facility] [address] Carm[address] Sharma [place] PCP - General Family Medicine 07/01/24
--- OUTSIDE RECORDS SUMMARY | 2025-03-13 23:53 | XMS_ITS | Clinical Summary ---
Author Organization [facility] Healthcare Address [address] [place] [address] Care Team Providers Care Branch Or Department Chief Librarian Name Role Phone Rafael Garrison MD Primary Care Provider [phone] Social History Tobacco Use Types Packs/Day Years [...] 02/02/2021 12:00 PM EDT Plan of Treatment Not on file Insurance [employer] MEDICARE ADVANTAGE Care Teams Branch Or Department Chief Librarian Relationship Specialty Start Date End Date Rafael Garrison MD [facility] [place] [address] PCP - General Internal Medicine 10/11/23
--- OUTSIDE RECORDS SUMMARY | 2025-03-13 23:53 | XMS_ITS | Encounter Summary ---
Author Organization [facility] Address [address], [address] [place] [address] Care Team Providers Care Bridge Game Director Name Role Phone DavidElena vazquez RISA - PLASMA SPECIALIST Primary Care Provider + Reason for Referral * Imaging (Routine) - Closed Specialty Diagnoses / Procedures Referred By Contac t Referred To Contact Radiology Diagnoses Chest pain, unspecified type Dizziness Abnormal stress ECG R07.9 (ICD-10-CM) - Chest pain, unspecified type Procedures CTA CORON EJECT FRAC WALL MOTION CHG CT ANGIO HRT CORNRY ART/BYPASS GRFTS CONTRST 3D POST [id number] - CHG CT ANGIO HRT CORNRY ART/BYPASS GRFTS CONTRST 3D POST Juvenal Harrell MD [address] [place] [address] Phone: tel: fax: Referral ID Status Reason Start Date Expiration Date Visits Re quested Visits Authorized [id number] Closed 06/21/2022 05/07/2023 1 1 Encounter Details Date Type Department Care Team (Latest Contact Info) Description 05/07/2022 Transcribe Orders [facility] [address] [phone] Juvenal Harrell MD [address] [place] [phone] Chest pain, unspecified type (Primary Dx); [...] study documented in this encounter Care Teams Bridge Game Director Relationship Specialty Start Date End Date Elena Martínez APRN - [facility] [place] [address] PCP - General Certified Nurse Practitioner 06/17/22 documented as of this encounter
--- OUTSIDE RECORDS SUMMARY | 2025-03-13 23:53 | XMS_ITS | Encounter Summary ---
Author Organization [employer] Address [id number] [address] [place] [address] Care Team Providers Care Rolled Glass Crosscutter Name Role Phone Services, [facility] Primary Care Provider Reason for Visit * Reason Onset Date Comments Pre-Cath meds 01/17/2023 Encounter Details Date Type Department Care Team (Late st Contact Info) Description 01/17/2023 Telephone [facility] [address] [place] [address] Shon Serrato RN Pre-Cath meds [...] is scheduled for a cardiac catheterization at [facility] on 01/23. Apparently the diagnosis is unstable angina. A chart review indicates no anti- anginal medications. I would advise the patient be placed on at least 1 anti-anginal medication. Otherwise although a diagnostic cardiac catheterization is indicated, revascularization would not meet appropriate use criteria for many potential anatomic scenarios. * Telephone Encounter - Shon Serrato RN - 01/17/2023 11:02 AM EDT [place] Staff, please see order from : Imdur [...] documented in this encounter Plan of Treatment Not on file documented as of this encounter Visit Diagnoses Not on filedocumented in this encounter Care Teams Rolled Glass Crosscutter Relationship Specialty Start Date End Date [facility], [facility] [address] [place], [place] PCP - General Family Medicine 07/01/24 documented as of this encounter
--- OUTSIDE RECORDS SUMMARY | 2025-03-13 23:53 | XMS_ITS | Encounter Summary ---
Author Organization [employer] Address [id number] [address] [place] [address] Care Team Providers Care Dough Catcher Name Role Phone Services, [facility] Primary Care Provider Encounter Details Date Type Department Care Team (Late st Contact Info) Description 12/30/2024 Orders Only [facility] [address] [place] [phone] External, Scanning Provider Social History Tobacco Use Types Packs/Day Years [...] as of this encounter Plan of Treatment Not on file documented as of this encounter Procedures Procedure Name Priority Date/Time Associated Diagnosis Comments MULTIPLE LABS Routine 12/23/2024 8:47 AM EDT documented in this encounter Results * Multiple labs (12/23/2024 8:47 AM EDT) us Scanning Provider External CO IMAGING Final Result MANUALLY TRANSCRIBED RESULTS documented in this encounter Visit Diagnoses Not on filedocumented in this encounter Care Teams Dough Catcher Relationship Specialty Start Date End Date Services, [facility] [address] [facility] [place] PCP - General Family Medicine 07/01/24 documented as of this encounter
--- OUTSIDE RECORDS SUMMARY | 2025-03-13 23:53 | XMS_ITS | Encounter Summary ---
Author Organization [employer] Address [id number] [address] [place] [address] Care Team Providers Care Parent Trainer Name Role Phone Services, [facility] Primary Care Provider Encounter Details Date Type Department Care Team (Late st Contact Info) Description 08/18/2020 Telephone [facility] [address] [place] [phone] Bhaskar Reyes MD [address] [place] [address] [phone] Social History Tobacco Use Types Packs/Day Years [...] Can you please input kub order in [facility] for pt's upcoming appt. Thank you. * Telephone Encounter - Amisha Laboy LPN - 08/18/2020 2:18 PM EST Done Amisha Laboy LPN 08/19/20 0748 documented in this encounter Plan of Treatment Not on file documented as of this encounter Visit Diagnoses Not on filedocumented in this encounter Care Teams Parent Trainer Relationship Specialty Start Date End Date [facility], [facility] [address] [place], [place] PCP - General Family Medicine 07/01/24 documented as of this encounter
--- OUTSIDE RECORDS SUMMARY | 2025-03-13 23:53 | XMS_ITS | Clinical Summary ---
Author Organization [facility] Address [address] [place] [address] Care Team Providers Care Casing Blower Name Role Phone Rafael Garrison MD Primary Care Provider [phone] Himanshu Borjas CNP Unavailable [phone] Allergies No known active allergies Medications [...] lower risk 7 08/05/2024 Data from: https://www.neigh treasurehoodatlas.medicine.[facility].edu/. Last address used for calculation [address] [...] of 2) 2005 Bone Density Screening 2020 Advance Directive Discussion 07/10/2024 Medicare Advantage Annual We llness Visit 07/10/2024 Mammogram Screening 12/07/2024 12/08/2023, 12/06/2022, 11/16/2021, Additional history exists Influenza Vaccine (#1) 2025 Diabetes Screening 01/23/2026 01/23/2023, 0 01/13/2023, 11/09/2018 RSV Vaccine (1 - 1-dose 75+ series) 2030 Procedures Procedure Name Priority Date/Time Associated Diagnosis Comments COMPREHENSIVE METABOLIC PANEL Fax 11/09/2018 9:07 AM EDT from Last 3 Months or Most Recently Relevant to Health Maintenance Results * (ABNORMAL) COMP METABOLIC PANEL (11/09/2018 9:07 AM EDT) Pathologist [facility] Protein, Total 6.8 6.3 - 8.0 g/dL 11/09/2018 6:03 PM EDT [facility] Albumin 4.3 3.9 - 4.9 g/dL 11/09/2018 6:03 PM EDT [facility] Calcium 9.2 8.5 - 10.2 mg/dL 11/09/2018 6:03 PM EDT [facility] Bilirubin, Total 0.4 0.2 - 1.3 mg/dL 11/09/2018 6:03 PM EDT [facility] Alkaline Phosphatase 193(H) 34 - 123 U/L 11/09/2018 6:03 PM EDT [facility] AST 48(H) 13 - 35 U/L 11/09/2018 6:03 PM EDT [facility] Glucose 76 74 - 99 mg/dL 11/09/2018 6:03 PM EDT [facility] Comment: The [place] Diabetes Association (ADA) provides guidance for cutoff [...] Standards of Medical Care in Diabetes 2016, [place] Diabetes Association. Diabetes Care. 2016.39(Suppl 1). BUN 16 7 - 21 mg/dL 11/09/2018 6:03 PM EDT [facility] Creatinine 0.88 0.58 - 0.96 mg/dL 11/09/2018 6:03 PM EDT [facility] Sodium 139 136 - 144 mmol/L 11/09/2018 6:03 PM EDT [facility] Potassium 4.6 3.7 - 5.1 mmol/L 11/09/2018 6:03 PM EDT [facility] Chloride 98 97 - 105 mmol/L 11/09/2018 6:03 PM EDT [facility] CO2 28 22 - 30 mmol/L 11/09/2018 6:03 PM EDT [facility] Anion Gap 13 9 - 18 mmol/L 11/09/2018 6:03 PM EDT [facility] ALT 55(H) 7 - 38 U/L 11/09/2018 6:03 PM EDT [facility] eGFR- >60 11/09/2018 6:03 PM EDT [facility] eGFR-All Other Races >60 . 11/09/2018 6:03 PM EDT [facility] Comment: eGFR (Estimated GFR) Units of measure: [...] AM EDT [facility] Provider LABORATORY Final Result [facility] [address] [place] [address] [facility] [address] [place] [address] from Last 3 Months or Most Recently Relevant to Health Maintenance Insurance HU[employer]NA MEDICARE Care Teams Casing Blower Relationship Specialty Start Date End Date Rafael Garrison MD [address] [facility] [place] [phone] PCP - General Internal Medicine 10/03/14 Himanshu Borjas CNP [address] [place] [phone] Family Medicine 01/10/24
--- OUTSIDE RECORDS SUMMARY | 2025-03-13 23:53 | XMS_ITS | Encounter Summary ---
Author Organization [employer] Address [id number] [address] [place] [address] Care Team Providers Care Licensed Plumber Name Role Phone Services, [facility] Primary Care Provider Encounter Details Date Type Department Care Team (Late st Contact Info) Description 12/25/2024 Orders Only [facility] [address] [place] [phone] External, Scanning Provider Social History Tobacco Use [...] Procedure Name Priority Date/Time Associated Diagnosis Comments XR WRIST LT MIN 3 VWS Routine 12/25/2024 4:12 PM EDT XR SHOULDER LT MIN 2 VWS Routine 025 4:08 PM EDT XR ELBOW LT MIN 3 VWS Routine 12/25/2024 4:[address] ABDOMEN AND PELVIS WO CONT Routine 11/29/2024 4:[address] BRAIN WO CONT Routine 10/22/2024 4:14 PM EDT US RETROPERITONEAL COMPLETE Routine 10/15/2024 4:04 PM EDT XR ABDOMEN AP 1 VW Routine 10/15/2024 4: 02 PM EDT ECG 12-LEAD Routine 09/27/2024 4:01 PM EDT XR CHEST 2 VWS Routine 09/20/2024 4:00 PM EDT MULTIPLE LABS Routine 09/20/2024 3:59 PM EDT documented in this encounter Results * X-ray wrist left minimum 3 views [...] DIAGNOSTIC IMAGING OR DERABLES Final Result * CT abdomen and pelvis without contrast (11/29/2024 4:16 PM EDT) Anatomical Region Laterality Modality Body, Abdomen, Body Covera N/A Compu erika Tomography us Scanning Provider External IMG CT ORDERABLES Fin al Result * CT brain without contrast (10/22/2024 4:14 PM EDT) Anatomical Region Laterality Modality Neuro, Head, Head and Neck, Neuro Covera N/A Computed Tomography us Scanning Provider External IMG CT ORDERABLES Fin al Result * Ultrasound retroperitoneal complete (10/15/2024 4:04 PM EDT) Anatomical Region Laterality Modality Body Ultrasound us Scanning Provider External IMG US ORDERABLES Fin al Result * X-ray abdomen ap 1 view (10/15/2024 4:02 PM EDT) Anatomical Region Laterality Modality Body, Abdomen N/A Computed Radiogr aphy us Scanning Provider External IMG DIAGNOSTIC IMAGIN G ORDERABLES Final Result * ECG 12 lead (09/27/2024 4:01 PM EDT) us Scanning Provider External ECG ORDERABLES Final Result Performing Organization Address [facility] Co de Phone Number MANUALLY TRANSCRIBED RESULTS * X-ray chest 2 views (09/20/2024 4:00 PM EDT) Anatomical Region Laterality Modality Body, Chest N/A Computed Radiogr aphy us Scanning Provider External IMG DIAGNOSTIC IMAGIN G ORDERABLES Final Result * Multiple labs (09/20/2024 3:59 PM EDT) us Scanning Provider External [place] IMAGING Final Result Performing Organization Address [facility] Co de Phone Number MANUALLY TRANSCRIBED RESULTS documented in this encounter Visit Diagnoses Not on filedocumented in this encounter Care Teams Licensed Plumber Relationship Specialty Start Date End Date Services, [facility] [address] [place], [place] PCP - General Family Medicine 07/01/24 documented as of this encounter
--- OUTSIDE RECORDS SUMMARY | 2025-03-13 23:53 | XMS_ITS | Clinical Summary ---
Author Organization [facility] Address [address], [address] [place] [address] Care Team Providers Care Playroom Attendant Name Role Phone DavidElena vazquez RISA - RUSSELL Primary Care Provider + Allergies No known [...] Visit ([facility]) 07/10/2024 Flu vaccine (#1) 02/07/2025 Respiratory Syncytial Virus (RSV) or age 60 [...] patient's age to complete this topic Insurance [facility] MEDICARE Advance Directives * Full Code (Latest Code Status on File) Date Activated Date Inactivated Comments 01/23/2023 2:24 PM 01/23/2023 8:44 PM Care Teams Playroom Attendant Relationship Specialty Start Date End Date Elena Martínez APRN - RUSSELL [address] [place] [address] PCP - General Certified Nurse Practitioner 06/17/22
--- OUTSIDE RECORDS SUMMARY | 2025-03-13 23:54 | XMS_ITS | CCD ---
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 Name Role Phone Nadira Modi APRN, CNP Primary Care Provider CHNAEL MODI Referring Unavailable MARILYNN, NADIRA Primary Care Unavailable [facility] Unava ilable MIKHAIL GRANT Consulting Unavailable GABRIELLA GRANTYL Admitting Unavailable MIKHAIL GRANT Attending Unavailable NADIRA SUBRAMANIAN Admitting Unavailable NADIRA SUBRAMANIAN Attending Unavailable [facility] Unava ilable MARILYNN, NADIRA Consulting Unavailable Himanshu Borjas Unavailable LOS LEE Admitting Unavailable LOS LEE Attending Unavailable LOS LEE Referring Unavailable NADIRA SUBRAMANIAN Primary Care Unavailable NADIRA SUBRAMANIAN Primary Care Physician RISA Subramanian Primary Care Provider [phone] RISA Borjas Attending Provider RISA Subramanian Primary Care Provider RISA Borjas Attending Provider Rafael Waldron MD Primary Care Provider [phone] Himanshu Borjas CNP Unavailable Nadira Perdue Primary Care Provider [facility] Primary Care Provider NON STAFF Primary Care Provider UnavailHimanshu Villa APRN Attending Provider FERNANDO CASTELLON Referring Unavailable MICAELA MONROY Attending Unavailable RAFAEL WALDRON Primary Care Unavailable Elizabeth Lott MD Attending Provider Himanshu Borjas Admitting Unavailable Scovanner, Himanshu M Attending Unavailable Anglim, Nadira Primary Care Unavailable Scbolaner Himanshu M Admitting Unavailable ScovannerHimanshu M Attending Unavailable Anglim, Nadira Primary Care Unavailable ScHimanshu jim M Attending Unavailable NON STAFF Primary Care Unavailable Scovanner, Himanshu M Admitting Unavailable Lue, Elizabeth M Admitting Unavailable Lue, Elizabeth M Attending Unavailable ALYSSA, ELIAZAR Primary Care Physician [phone] Elizabeth Lott. Attending Unavailable Lue, Elizabeth M. Referring Unavailable Lue Elizabeth M. Attending Unavailable ALYSSA, ELIAZAR Primary Care Unavailable Venita Gibson Attending Unavailable LueElizabeth M. Attending Unavailable NKANSAH-AMANKRA, JASMIN Admitting Unavail able NKANSAH-AMANKRA, JASMIN Attending Unavail able NKANSAH-AMANKRA, JASMIN Referring Unavail able [facility], ELIAZAR Primary Care Unavailable [place] Toney Attending Unavailable NKANSAH-AMANKRA, JASMIN Attending Unavail able NKANSAH-AMANKRA, JASMIN Attending Unavail able [facility], ELIAZAR Primary Care Unavailable NKANSAH-AMANKRA, JASMIN Attending Unavail able Elizabeth Lott Attending Unavailable Services, [facility] Primary Care Provider JOEY ANDREA Attending Unavailable MARILYNN, NADIRA A Referring Unavailable [facility] Primary Care Unava ilable LORY ANDRES Attending Unavailable LORY ANDRES Referring Unavailable [facility] Primary Care Unava ilable NKANSAH-AMANKRA, JASMIN Admitting Unavail able NKANSAH-AMANKRA, JASMIN Attending Unavail able NKANSAH-AMANKRA, JASMIN Referring Unavail able ALYSSA, ELIAZAR Primary Care Unavailable NKANSAH-AMANKRA, JASMIN Admitting Unavail able NKANSAH-AMANKRA, JASMIN Attending Unavail able NKANSAH-AMANKRA, JASMIN Referring Unavail able ALYSSA, ELIAZAR Primary Care Unavailable OJUKWU, Mbanefo Consulting Unavailable ALYSSA, ELIAZAR Primary Care Unavailable NKANSAH-AMANKRA, JASMIN Admitting Unavail able NKANSAH-AMANKRA, JASMIN Attending Unavail able NKANSAH-AMANKRA, JASMIN Referring Unavail able OJUKWU, MD Mbanefo Consulting Unavailable OJUKWU, Mus[place]efo Consulting Unavailable OJUKWU, [place] Consulting Unavailable OJUKWU, [place] Consulting Unavailable OJUKWU, [place] Consulting Unavailable OJUKWU, [place] Consulting Unavailable OJUKWLeonela, [place] Consulting Unavailable OJUKWU, Mbanefo Consulting Unavailable [facility] Unavailable AJSMIN MILLS Attending Unavail able [facility] Care Unavailable JASMIN MILLS Attending Unavail able Allergies Allergy Classification Reported Allergen(s) Allergy Type Date of Onset Reaction(s) Facility (3 sources) No Known Medication Allergies; Translations: [No Known Medication Allergies] Propensity to adverse reactions (disorder) [facility] Repository Medications Current Medications Medication Drug Class(es) Dates Sig (Normalized) Sig (Original) alendronic acid 70 mg oral tablet (4 sources) Bisphosphonate Start: 12-23-2024 alendronate 70 mg Tab 70 mg = 1 tab(s), Oral, q7day Start Date: 12/23/24 Status: Ordered Repeat number: 1 ALPRAZolam 1 mg oral tablet (11 sources) Benzodiazepine Start: 05-10-2023 take 1 mg by mouth once daily as needed for anxiety alprazolam 1 mg, Oral, Daily, PRN as needed for anxiety, Refills(s) 0 Start Date: 05/10/23 Status: Ordered Repeat number: 1 Start: 05-10-2023 alprazolam Ora l, Refills(s) 0 Start Date: 05/10/23 Status: Ordered Repeat number: 1 Start: 05-10-2023 alprazolam Ora l, Refills(s) 0 Start Date: 05/10/23 Status: Ordered aspirin 81 mg oral capsule (14 sources) Platelet Aggregation Inhibitor, Nonsteroidal Anti-inflammatory Drug Start: 05-10-2023 take 1 mg by mouth every twenty-four hours aspirin 81 mg oral capsule mg cap(s), Oral, q24hr, Refills(s) 0 Start Date: 05/10/23 Status: Ordered Repeat number: 1 Start: 01-23-2023 End: 12-31-2024 take 1 tablet by mouth in the morning aspirin 81 mg Take 1 tablet (81 mg total) by mouth in the morning. 01/23/2023 12/31/2024 Discontinued (Therapy completed) atorvastatin 20 mg oral tablet (2 sources) HMG-CoA Reductase Inhibitor Start: 10-03-2014 take 1 tablet by mouth once daily atorvastatin (LIPITOR) 20 mg tablet Take 1 tablet by mouth once daily. 0 10/03/2014 Active cephalexin 500 mg oral capsule (1 source) Cephalosporin Antibacterial Start: 01-08-2025 End: 01-13-2025 take 1 capsule by mouth twice daily Keflex 500 mg Cap 500 mg = 1 cap(s), Oral, BID, X 5 day(s), # 10 cap(s), Refills(s) 0, Pharmacy: [id number], 152.4, cm, 01/07/25 12:56:00 EDT, Height/Length Dosing, 58.5, kg, 01/07/25 12:56:00 EDT, Weight Dosing Start Date: 01/08/25 Stop Date: 01/13/25 Status: Ordered Quantity: 10.0 Unit: cap(s) Repeat number: 1 cholecalciferol 0.025 mg oral tablet (1 source) Vitamin D Start: 12-31-2024 take 1 tablet by mouth in the morning cholecalciferol (VITAMIN D3) 1,000 units tablet Take 1 tablet (1,000 Units total) by mouth in the morning. 90 tablet 3 12/31/2024 Active citalopram 40 mg oral tablet (20 sources) Serotonin Reuptake Inhibitor Start: 12-23-2024 take 1 tablet by mouth once daily citalopram 40 mg Tab 40 mg = 1 tab(s), Oral, Daily Start Date: 12/23/24 Status: Ordered Repeat number: 1 Start: 10-03-2014 take 1 mg by mouth once daily citalopram 20 mg Tab mg tab(s), Oral, Daily, Refills(s) 0 Start Date: 05/10/23 Status: Ordered Repeat number: 1 clopidogrel 75 mg oral tablet (20 sources) [id number] Platelet Inhibitor Start: 01-23-2023 End: 12-31-2024 take 1 tablet by mouth once daily Plavix 75 mg Tab 75 mg = 1 tab(s), Oral, Daily, Refills(s) 0 Start Date: 05/10/23 Status: Ordered Repeat number: 1 Plavix Active cyclobenzaprine hydrochloride 5 mg oral tablet (3 sources) Muscle Relaxant Start: 12-23-2024 take 1 tablet by mouth three times daily as needed for pain cyclobenzaprine 5 mg Tab 5 mg = 1 tab(s), Oral, TID, PRN Pain Start Date: 12/23/24 Status: Ordered Repeat number: 1 docusate sodium 50 mg oral capsule (2 sources) Start: 01-08-2025 take 1 capsule by mouth twice daily as needed for constipation Colace 50 mg oral capsule 50 mg = 1 cap(s), Oral, BID, PRN for constipation, # 60 cap(s), Refills(s) 0, Pharmacy: [id number], 152.4, cm, 01/07/25 12:56:00 EDT, Height/Length Dosing, 58.5, kg, 01/07/25 12:56:00 EDT, Weight Dosing Start Date: 01/08/25 Status: Ordered Quantity: 60.0 Unit: cap(s) Repeat number: 1 estradiol 0.1 mg/ml vaginal cream (11 sources) Estrogen Start: 05-10-2023 Estrace 0.1 mg/g Cream See Instructions, 42.5 gm, Refill(s) 3, apply pea size amount to urethra/inner vagina 3x/week x 1 month, then 2x/week for maintainence, [facility], 152.4, cm, 05/10/23 9:55:00 EDT, Height/Length Dosing, 57.6, kg, 05/10/23 9:55:00 EDT, Weight Dosing Start Date: 05/10/23 Status: Ordered Quantity: 42.5 Unit: g Repeat number: 4 famotidine 40 mg oral tablet (20 sources) Histamine-2 Receptor Antagonist Start: 12-23-2024 take 1 tablet by mouth once daily at bedtime famotidine 40 mg Tab 40 mg = 1 tab(s), Oral, Once a day (at bedtime) Start Date: 12/23/24 Status: Ordered Repeat number: 1 Start: 01-02-2024 End: 09-10-2024 take 1 tablet [...] mononitrate 30 mg extended release oral tablet (8 sources) Nitrate Vasodilator Start: 01-17-2023 End: 12-31-2024 take 1 tablet by mouth once daily isosorbide mononitrate (IMDUR) 30 mg 24 hr tablet Take 1 tablet (30 mg total) by mouth daily. 90 tablet 3 12/31/2024 Active lisinopril 40 mg oral tablet (20 sources) Angiotensin Converting Enzyme Inhibitor Start: 05-10-2023 End: 12-31-2024 take 1 tablet by mouth once daily lisinopril 40 mg Tab 40 mg = 1 tab(s), Oral, Daily, Refills(s) 0 Start Date: 05/10/23 Status: Ordered Repeat number: 1 Start: 10-03-2014 take 1 tablet by sekou [...] succinate 25 mg extended release oral tablet (7 sources) beta-Adrenergic Shoaib Start: 02-10-2023 End: 12-31-2024 take 1 tablet by mouth once daily metoprolol succinate XL (TOPROL XL) 25 mg 24 hr tablet Indications: Coronary artery disease of [place] artery of [place] heart with stable angina pectoris , Hypertensive heart disease without heart failure , Presence of drug-eluting stent in right coronary artery Take 1 tablet (25 mg total) by mouth nightly. 90 tablet 3 12/31/2024 Active nitroglycerin 0.4 mg sublingual tablet (6 sources) Nitrate Vasodilator Start: 12-23-2024 nitroglycerin 0.4 mg sublingual Tab 0.4 mg = 1 tab(s), SubLingual, q5min, PRN for chest pain Start Date: 12/23/24 Status: Ordered Repeat number: 1 Start: 07-01-2024 nitroglycerin (NITROSTAT) 0.4 MG SL tablet 1 under the tongue as needed for angina, may repeat q5mins for up three doses 30 tablet 3 07/01/2024 Active omeprazole 40 mg delayed release oral capsule (20 sources) Proton Pump Inhibitor Start: 12-23-2024 take 1 capsule by mouth at bedtime omeprazole 40 mg Cap-DR 40 mg = 1 cap(s), Oral, Bedtime Start Date: 12/23/24 Status: Ordered Repeat number: 1 Start: 01-02-2024 End: 09-10-2024 take 1 capsule [...] 02, 2024 2:15pm take 1 capsule by [facility] twice daily Omeprazole 20 MG 1 capsule 30 minutes before morning meal Orally BID Active oxyCODONE hydrochloride 5 mg oral tablet (1 source) Opioid Agonist Start: 01-08-2025 End: 01-11-2025 take 1 tablet by mouth every six hours as needed for pain Roxicodone 5 mg Tab 5 mg = 1 tab(s), Oral, q6hr, PRN for pain, X 3 day(s), # 10 tab(s), Refills(s) 0, Pharmacy: [id number], 152.4, cm, 01/07/25 12:56:00 EDT, Height/Length Dosing, 58.5, kg, 01/07/25 12:56:00 EDT, Weight Dosing Start Date: 01/08/25 Stop Date: 01/11/25 Status: Ordered Quantity: 10.0 Unit: tab(s) Repeat number: 1 rosuvastatin calcium 40 mg oral tablet (20 sources) HMG-CoA Reductase Inhibitor Start: 12-23-2024 take 1 tablet by mouth once daily rosuvastatin 40 mg Tab 40 mg = 1 tab(s), Oral, Daily Start Date: 12/23/24 Status: Ordered Repeat number: 1 Start: 10-26-2023 Rosuvastatin A ctive MG PO October 26, 2023 12:00am FreeTextSig: Oral; Note: Source Status: Taking; Qty: 90 Tablet; Provider: Suad Downs ( ) Start: 02-10-2023 End: 12-31-2024 take 1 tablet by mouth in the morning rosuvastatin (CRESTOR) 20 mg tablet Indications: Coronary artery disease of [place] artery of [place] heart with stable angina pectoris Take 1 tablet (20 mg total) by mouth in the morning. 90 tablet 3 12/31/2024 Active tamsulosin hydrochloride 0.4 mg oral capsule (6 sources) alpha-Adrenergic Shoaib Start: 12-23-2024 take 1 capsule by mouth once daily tamsulosin 0.4 mg Cap 0.4 mg = 1 cap(s), Oral, Daily Start Date: 12/23/24 Status: Ordered Repeat number: 1 Start: 05-24-2023 End: 07-01-2024 take 1 capsule by mouth once daily tamsulosin (FLOMAX) 0.4 mg capsule Take 1 capsule (0.4 mg total) by mouth nightly. 05/24/2023 07/01/2024 Discontinued (Discontinued by another clinician) traMADol hydrochloride 50 mg oral tablet (3 sources) Opioid Agonist Start: 12-23-2024 take 1 tablet by mouth every twelve hours as needed for pain traMADOL 50 mg Tab 50 mg = 1 tab(s), Oral, q12hr, PRN for pain Start Date: 12/23/24 Status: Ordered Repeat number: 1 Vitamin D3 1000 intl units (25 mcg) Tab (3 sources) Start: 12-23-2024 take 1 tablet by mouth once daily Vitamin D3 1000 intl units (25 mcg) Tab 25 mcg = 1 tab(s), Oral, Daily Start Date: 12/23/24 Status: Ordered Repeat number: 1 Completed/Discontinued Medications Medication Drug Class(es) Dates Sig [...] Problem Date Documented Da te Episodic/Chronic Abdominal pain (20 sources) Abdominal pain; Translations: [Unspecified abdominal pain] Onset: 4 01-02-2024 Episodic Allergic reactions (7 sources) Allergy to drug 07-24-2024 Episodic Calculus of urinary tract (20 sources) Personal history of urinary calculi; Translations: [History of calculus of kidney] Onset: 7 Episodic Complications of surgical procedures or medical care (1 source) Prolapse of vaginal vault after hysterectomy; Translations: [Prolapse of vaginal vault after hysterectomy] Chronic Coronary atherosclerosis and other heart disease (20 sources) Coronary arteriosclerosis; Translations: [Atherosclerotic heart disease of [place] coronary artery with other forms of angina pectoris] Onset: 3 05-10-2023 Chronic Diseases of white blood cells (2 sources) Leukocytosis; Translations: [Elevated white blood cell count, unspecified] Onset: 5 10-06-2014 Chronic Disorders of lipid metabolism (20 sources) Pure hypercholesterolemia, unspecified; Translations: [Hyperlipidemia, unspecified] Onset: 2 05-10-2023 Chronic E Codes: Cut/pierceb (1 source) Contact with knife, initial encounter; Translations: [CONTACT WITH KNIFE INITIAL ENC] Onset: 3 Episodic Esophageal disorders (20 sources) Gastroesophageal reflux disease; Translations: [Gastro-esophageal reflux disease without esophagitis] Onset: 4 Chronic Comment on above: Problem List clean-u p per request of Phys. EHR Cmte Essential hypertension (20 sources) Essential (primary) hypertension; Translations: [Hypertensive disorder] Onset: 2 Chronic Genitourinary symptoms and ill-defined conditions (1 source) Procedure carried out on subject; Translations: [Encounter for fitting and adjustment of urinary device] Onset: 4 Chronic Genitourinary symptoms and ill-defined conditions (20 sources) Unspecified symptoms and signs involving the genitourinary system; Translations: [Urinary symptoms ] Onset: 7 Episodic Hypertension with complications and secondary hypertension (8 sources) Hypertensive heart disease; Translations: [Hypertensive heart disease without heart failure] Onset: 3 02-10-2023 Chronic Immunizations and screening for infectious disease (1 source) Encounter for immunization; Translations: [ENCOUNTER FOR IMMUNIZATION] Onset: 3 Episodic Menopausal disorders (17 sources) Atrophic vaginitis; Translations: [Postmenopausal atrophic vaginitis] [...] 3 Episodic Other aftercare (1 source) Other director of contracts (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 therapy; Translations: [OTH ASSISTED CURRENT DRUG THERAPY] Onset: 3 Episodic Other aftercare (8 sources) Long-term current use of anticoagulant; Translations: [writer editor (current) use of anticoagulants] Onset: 5 Episodic Other aftercare (6 sources) Long-term current use of drug therapy; Translations: [writer editor (current) use of antithrombotics/antipl atelets] Onset: 5 Episodic Other diseases of kidney and ureters (10 sources) Cyst of kidney; Translations: [Cyst of kidney, acquired] Onset: 7 02-14-2022 Episodic Other diseases of kidney and ureters (3 sources) Acquired renal cyst without neoplastic change; Translations: [Cyst of kidney, acquired] Onset: 5 Episodic Other gastrointestinal disorders (4 [...] Episodic Other nutritional; endocrine; and metabolic disorders (6 sources) Disorder of mineral metabolism; 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, unspecified] Onset: 7 09-26-2022 Chronic Other screening for suspected conditions (not mental disorders or infectious disease) (2 sources) Echocardiogram abnormal; Translations: [Abnormal result of other cardiovascular function study] Onset: 2 Episodic Prolapse of female genital organs (16 sources) Cystocele; Translations: [Cystocele, unspecified] Onset: 3 Chronic Residual codes; unclassified (1 source) Family history of malignant neoplasm of digestive organs Episodic Residual codes; unclassified (9 sources) History of cardiac catheterization; Translations: [Other specified postprocedural states] 10-26-2023 Episodic Residual codes; unclassified (9 sources) Past history of procedure; Translations: [Other specified postprocedural states] 10-26-2023 Episodic Residual codes; unclassified (7 sources) Tobacco user 07-24-2024 Episodic Substance-related disorders (9 sources) Nicotine dependence, cigarettes, uncomplicated; Translations: [Smoker] Onset: 3 07-01-2024 Chronic Unclassified (2 sources) cath procedure; Translations: [cath procedure] Onset: 3 Unclassified (5 sources) Long-term current use of drug therapy 08-27-2024 Unclassified (1 source) Cough, unspecified; Translations: [Cough, unspecified] Onset: 4 Unclassified (1 source) Pre-op Exam Onset: 5 Urinary tract infections (11 sources) Urinary tract infectious disease 05-10-2023 Episodic Past or Other Problems Problem Classification Problem Date Documented Da te Episodic/Chronic Abdominal hernia (20 sources) Diaphragmatic hernia without obstruction or gangrene; Translations: [Hiatal hernia] Onset: 11-14-2023 Episodic Conditions associated with dizziness or vertigo (8 sources) Dizziness; Translations: [Dizziness and giddiness] Onset: 05-06-2022 Episodic Coronary atherosclerosis and other heart disease (8 sources) Presence of coronary angioplasty implant and graft; Translations: [Percutaneous transluminal coronary angioplasty status] Onset: 02-10-2023 02-10-2023 Episodic Fluid and electrolyte disorders (2 sources) Dehydration; Translations: [Dehydration] Onset: 10-06-2014 10-06-2014 Episodic Nonspecific chest pain (8 sources) Chest pain; Translations: [Chest pain, unspecified] Onset: 05-06-2022 Episodic Other aftercare (1 source) Patient encounter status; Translations: [Other director of contracts (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 therapy] 02-01-2024 Episodic Other gastrointestinal disorders (4 sources) Diarrhea, unspecified; Translations: [Diarrhea] Onset: 05-31-2024 05-30-2024 Episodic Results Test Name Value Interpretation Reference Range Facility Ambulatory Visit Summaryon 0 01-27-2025 Ambulatory Visit Summary Ambulatory Visit Summary SLY COY :1955 MRN:[id number] Visit Date:01/27/2025 Ambulatory Visit Instructions Your Diagnosis Female bladder prolapse Frequency of urination Vaginal atrophy Kidney stones Microscopic hematuria Renal cyst Antiplatelet or antithrombotic long-term use Your Care Team Attending Physician - THONY BOB, [facility] Primary Care Physician - ELIAZAR SHAH This Is Your Medications List estradiol topical (Estrace 0.1 mg/g Cream) Contact prescribing physician if questions or concerns alendronate (alendronate 70 mg Tab) alprazolam cholecalciferol (Vitamin D3 1000 intl units (25 mcg) Tab) citalopram (citalopram 40 mg Tab) clopidogrel (Plavix 75 mg Tab) cyclobenzaprine (cyclobenzaprine 5 mg Tab) docusate (Colace 50 mg oral capsule) famotidine (famotidine 40 mg Tab) lisinopril (lisinopril 40 mg Tab) nitroglycerin (nitroglycerin 0.4 mg sublingual Tab) omeprazole (omeprazole 40 mg Cap-DR) rosuvastatin (rosuvastatin 40 mg Tab) tramadol (traMADOL 50 mg Tab) Procedures Performed Sacrocolpopexy (01/07/2025), Extracorporeal shockwave lithotripsy (10/02/2024), Removal of ureteral stent (07/24/2023), Ureteroscopy (07/12/2023), ESWL of kidney (05/24/2023), Stented artery (01/07/2023), Hysterectomy (2018), ESWL of kidney (03/05/2009), ESWL of kidney (01/22/2009), ESWL of kidney (09/28/2006), Urodynamics (12/13/2005), ESWL of kidney (12/01/2005), Cystoscopy (11/25/2005), Bladder care, Endometrial ablation. Discharge Vitals Heart Rate (Peripheral) 70 Blood Pressure 122/74 Height 152 cm Height 60 in Weight 54.5 kg Weight 120.152 lb BMI 23.59 What to do next Scheduled Follow-Up Appointments Monday 11:00 AM EDT With: JASMIN MILLS MD Where: [facility] [address], [address] [place] [id number]- You Need to Schedule the Following Appointments Follow Up with JASMIN MILLS MD, JOCELYN When: Where: Medications What How Much When Instructions Unchanged estradiol topical (Estrace 0.1 mg/ g Cream) See instructions apply pea size amount to urethra/ inner vagina 3x/ week x 1 month, then 2x/ week for maintainence Unchanged alendronate (alendronate 70 mg Tab) 1 Tablets By Mouth Every 7 days Contact prescribing physician if questions or concerns Unchanged alprazolam 1 Milligram By Mouth Every day as needed for as needed for anxiety Contact prescribing physician if questions or concerns Unchanged cholecalciferol (Vitamin D3 1000 intl units (25 mcg) Tab) 1 Tablets By Mouth Every day Contact prescribing physician if questions or concerns Unchanged citalopram (citalopram 40 mg Tab) 1 Tablets By Mouth Every day Contact prescribing physician if questions or concerns Unchanged clopidogrel (Plavix 75 mg Tab) 1 Tablets By Mouth Every day Contact prescribing physician if questions or concerns Unchanged cyclobenzaprine (cyclobenzaprine 5 mg Tab) 1 Tablets By Mouth 3 times a day as needed for Pain Contact prescribing physician if questions or concerns Unchanged docusate (Colace 50 mg oral capsule) 1 Capsules By Mouth 2 times a day as needed for for constipation Contact prescribing physician if questions or concerns Unchanged famotidine (famotidine 40 mg Tab) 1 Tablets By Mouth Once a day (at bedtime) Contact prescribing physician if questions or concerns Unchanged lisinopril (lisinopril 40 mg Tab) 1 Tablets By Mouth Every day Contact prescribing physician if questions or concerns Unchanged nitroglycerin (nitroglycerin 0.4 mg sublingual Tab) 1 Tablets Sublingual Every 5 minutes as needed for for chest pain Contact prescribing physician if questions or concerns Unchanged omeprazole (omeprazole 40 mg Cap-DR) 1 Capsules By Mouth At bedtime Contact prescribing physician if questions or concerns Unchanged rosuvastatin (rosuvastatin 40 mg Tab) 1 Tablets By Mouth Every day Contact prescribing physician if questions or concerns Unchanged tramadol (traMADOL 50 mg Tab) 1 Tablets By Mouth Every 12 hours as needed for for pain Contact prescribing physician if questions or concerns Allergies No Known Medication Allergies Problems Ongoing - Any problem that you are currently receiving treatment for. Anticoagulant long-term use Antiplatelet or antithrombotic long-term use CAD (coronary artery disease) Female bladder prolapse Frequency of urination Hyperlipidemia Hypertension Kidney stones Microscopic hematuria Personal history of kidney stones Renal cyst [...] We appreciate your feedback and thank you fo (more content not included)... Normal [facility] Provider Letteron 01-27-2025 Provider Letter Provider Letter January 27, 2025 SLY COY [address] [place] [address] : 1955 To Whom It May Concern, Please excuse above patient from work, extending time off through Sunday February 09, 2025 for medical recovery. Date of Illness:01/27/2025 To: 02/09/2025 May Return to Work On: 02/10/2025/ no restrictions upon returning work. Comments: If you have any questions, please call the number below as we are open everyday 8-4. Thank you. Sincerely, [place] [address] ext.3 Jasmin Mills MD Normal [facility] Office/Clinic Noteon 01-27-2025 Urology Office/Clinic Note Urology Office/Clinic Note Chief Complaint follow up HPI Staff 69 year old female here for F/U to [facility] extensive lysis of adhesions, repair of vaginotomy, cystocele repair done 01/07/25 Previous DX: female bladder prolapse, kidney stones, frequency of urination, vaginal atrophy, renal cyst and micro hematuria Patient denies any dysuria or gross hematuria. Denies any flank or abdomen pain. History of Present Illness Tests reviewed: none. I have reviewed the previous health record information and history for this patient from Dr. Bess I have reviewed and verified the staff [...] HPI. Physical Exam Vitals & Measurements HR: 70(Peripheral) BP: 122/74 HT: 152 cm HT: 60 in WT: 54.5 kg WT: 120.152 lb BMI: 23.59 General Appearance: alert , no acute distress, well nourished, well developed female. Genitourinary: healing well. Mild tenderness with exam. Assessment/Plan Portions of this record may have been created with voice recognition artificial intelligence software, specifically TribeHR, Still[employer]ure and or Funium. Substitutions may have occurred due to the inherent limitations of voice recognition and artificial intelligence software. 1. Female bladder prolapse (N81.10: Cystocele, unspecified) S/p vaginal hysterectomy 2018. Still has ovaries. S/p bladder sling with mesh. Unsure of date. 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 S/p Cysto, L Ureteroscopy, stone extraction, stent placement 07/12/23 - grade III cystocele to level of introitus Exam 12/16/24 ~consistent with grade III cystocele to level of introitus. S/p robotic extensive lysis of adhesions, repair of vaginotomy, cystocele repair 01/07/25 - Grade 3 anterior bladder wall prolapse repaired with significant reduction at conclusion of procedure, excellent vaginal length. Denies post op complications. Passing flatus and having bowel movements. Very pleased since surgery. Quality of life has improved. No abnormalities found on exam today. Healing as expected. -F/up in 3 mos 2. Frequency of urination (R35.0: Frequency of micturition) BBSQ 10 (23) PVR 07/24/24 - 14 mL. Prior note, pt having urinary frequency every 2-3 hours. Pt informed that cystocele likely contributing. Reports frequency and urgency also worse w/ kidney stones. Denies bothersome sxs today. Previously has declined medications. -Cont symptomatic monitoring -See #1 3. Vaginal atrophy (N95.2: Postmenopausal atrophic vaginitis) Continues application of Estrogen cream. Denies bothersome SEs. 4. Kidney stones (N20.0: Calculus of kidney) Previously seen by PRW due to Kidney Stones. S/P Lt ESWL 03/05/09. KUB 03/18/23 - 3 clusters [...] measures up to [address] AP wo con 11/29/24 [facility] - simple R renal cyst. 7 mm R renal calculus. Punctate left renal calculi. Small simple left renal cyst. Pt states I felt some of them move the other day . Will have pt f/up with Dr. Lott. 5. Microscopic hematuria (R31.29: Other microscopic hematuria) Unable to provide urine sample. Denies gross hematuria. Pt knows to call with visible blood in urine. 6. Renal cyst (N28.1: Cyst of kidney, acquired) RAFAEL 04/30/24 - stable 2.2 cm slightly complex right renal cyst. RAFAEL 10/15/24 - similar mildly complex right renal cyst, likely benign. 7. Antiplatelet or antithrombot (more content not included)... Normal [facility] Comment on above: Result Comment: Elec tronically Signed By: JASMIN MILLS MD\.br\Date and Time Signed: 01/27/25 10:44 EDT\.br\Electronically Co-Signed By: Sary Navarro.br\Date and Time Co-Signed: 01/27/25 09:56 EDT Main OR Intraoperative Recor don 01-09-2025 Main OR Intraoperative Record Main OR Intraoperative Record IntraOp Document Type FT Summary Primary Physician: JASMIN MILLS MD Finalized Date/Time: 01/09/25 10:12:00 Pt. Name: ANNELIESE SLY Valdivia./Sex: 1955 Female Med Rec #: [id number] Physician: JASMIN MILLS MD Financial #: [id number] Pt. Type: O Room/Bed: N318/01 Admit/Disch: 01/07/25 06:44:32 - 01/08/25 10:54:00 Institution: Case Times FT Entry 1 Patient Times In Room 01/07/25 08:19:00 Out Room 01/07/25 11:48:00 Procedure Times Start 01/07/25 08:57:00 Stop 01/07/25 11:35:00 Anesthesia Times Start 01/07/25 08:19:00 Stop 01/07/25 11:48:00 Last Modified By: Kenya ALMONTE, Avery Bagley 01/07/25 11:48:47 General Comments: Davinci robot docked at surgical field at 0906. 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 Out for a break from [phone]. CAITLIN Trinidad covering his break. Last Modified By: Kenya RN, Avery Zambrano RN, Avery Flood RN 01/07/25 11:48:48 01/07/25 11:48:48 01/07/25 11:48:48 Entry 4 Entry 5 Entry 6 Case Attendee Vanessa Rico TONE REGULATOR, Umu Lee TONE REGULATOR, Kiran Mcqueen Role Performed Scrub - Primary TONE REGULATOR/SA TONE REGULATOR/SA Time In 01/07/25 08:19:00 01/07/25 08:19:00 01/07/25 09:22:00 Time Out 01/07/25 11:48:00 01/07/25 11:48:00 01/07/25 10:54:00 Procedure SACROCOLPOPEXY SACROCOLPOPEXY SACROCOLPOPEXY ROBOTIC(.) ROBOTIC(.) ROBOTIC(.) Comments out for break from Last Modified By: Kenya ALMONTE, Avery Zambrano RN, Avery Flood RN 01/07/25 11:48:48 01/07/25 11:48:48 01/07/25 11:48:48 Entry 7 Case Attendee Anil Thomas Role Performed Scrub - Relief Time In 01/07/25 09:48:00 Time Out 01/07/25 11:48:00 Procedure SACROCOLPOPEXY ROBOTIC(.) Comments generation technician break relief from Last Modified By: Avery Zambrano RN 01/07/25 11:48:48 Perioperative Protocols FT Pre-Care Text: Implements protective measures prior to operative or invasive procedure, confirms identity before the operative or invasive procedure, verifies operative procedure, surgical site, and laterality Entry 1 Procedure(s) SACROCOLPOPEXY Patient Identity Birthday, ID Band ROBOTIC(.) Verified (select at Check, Patient least 2): Participation Consents / H and P Anesthesia Consent, Operative Site N/A Verified H&P, Surgery/Procedure Marking Verified Consent, Transfusion Consent Surgical Site Yes Laterality Verified n/a Verified Procedure Verified Yes Correct Patient Yes Position Verified Availability Equipment, Implant, Prep Dry n/a Verified (If Medication Applicable) PreOp Antibiotic Yes Time Out Gorge Hogan CRNA, Given Participants THONY BOB, Kenya CASTELLANOS RN, Trisha Vazquez Madison A, Wilhelm CST, Macie C Time Out Complete 01/07/25 08:56:00 Outcomes Met? Yes Last Modified By: Avery Zambrano RN 01/07/25 09:30:13 Post-Care Text: The patient is free from signs and symptoms of injury caused by extraneous objects Allergy Information FT Pre-Care Text: Verifies allergies Entry 1 Allergies Reviewed? Yes Allergies Reviewed Self/Patient With Outcomes Met? Yes Last Modified By: Avery Zambrano RN 01/07/25 07:46:23 Post-Care Text: The patient received appropriate medication(s) safely administered during the perioperative period Surgical Procedures FT Entry 1 Procedure Description Procedure SACROCOLPOPEXY ROBOTIC Modifiers . Surgeon Description ROBOTIC EXTENSIVE LYSIS OF ADHESIONS, VAGINOTOMY CLOSURE, CYSTOCELE REPAIR Primary Procedure Yes Primary Surgeon JASMIN MILLS MD Start 01/07/25 08:57:00 Stop 01/07/25 11:35:00 Anesthesia Type General Surgical Service Anesthesia Wound Class 2 - Clean-Contaminated Last Modified By: Avery Zambrano RN 01/07/25 12:41:22 General Case Data FT Pre-Care Text: Classifies surgical wound, implements aseptic technique, initiates traffic control Entry 1 Case Information OR OR 6 FT Case Level Level 5 Wound Class 2 - Clean-Contaminated Specialty Anesthesia ASA Class 3 Preop Diagnosis UTERINE BLADDER Postop Same As Preop Yes PROLAPSE, VAGINAL ATROPHY, STAGE 3 ANTERIOR PROLAPSE Postop Diagnosis UTERINE BLADDER Outcomes Met? Yes PROLAPSE, VAGINAL ATROPHY, STAGE 3 ANTERIOR PROLAPSE Last Modified By: Avery Zambrano RN 01/07/25 10:10:52 Post-Care Text: The patient is free from signs and symptoms of infection Skin Assessment (Pre Procedure) FT Pre-Care Text: Implements pr (more content not included)... Normal [facility] Discharge Note-Nursingon Discharge Note-Nursing Discharge Note-Nursing SLY COY :1955 Visit Date:01/07/2025 Inpatient Discharge Instructions Your Care Team Admitting Physician - JASMIN MILLS MD Consulting Physician - Bhanu UP MD Referring Physician - JASMIN MILLS MD Reason for Your Visit Had surgery today. Medical consult for management of HTN, Hyperlipidemia and GERD. Your Diagnosis Pelvic organ prolapse quantification stage 2 cystocele CAD (coronary artery disease) Hyperlipidemia Hypertension GERD (gastroesophageal reflux disease) On deep vein thrombosis (DVT) prophylaxis This Is Your Medications List alendronate (alendronate 70 mg Tab) alprazolam cephalexin (Keflex 500 mg Cap) cholecalciferol (Vitamin D3 1000 intl units (25 mcg) Tab) citalopram (citalopram 40 mg Tab) clopidogrel (Plavix 75 mg Tab) cyclobenzaprine (cyclobenzaprine 5 mg Tab) docusate (Colace 50 mg oral capsule) estradiol topical (Estrace 0.1 mg/g Cream) famotidine (famotidine 40 mg Tab) lisinopril (lisinopril 40 mg Tab) nitroglycerin (nitroglycerin 0.4 mg sublingual Tab) omeprazole (omeprazole 40 mg Cap-DR) oxycodone (Roxicodone 5 mg Tab) rosuvastatin (rosuvastatin 40 mg Tab) tamsulosin (tamsulosin 0.4 mg Cap) tramadol (traMADOL 50 mg Tab) Procedure History Extracorporeal shockwave lithotripsy (10/02/2024), Removal of ureteral stent (07/24/2023), Ureteroscopy (07/12/2023), ESWL of kidney (05/24/2023), Stented artery (01/07/2023), Hysterectomy (2018), ESWL of kidney (03/05/2009), ESWL of kidney (01/22/2009), ESWL of kidney (09/28/2006), Urodynamics (12/13/2005), ESWL of kidney (12/01/2005), Cystoscopy (11/25/2005), Bladder care, Endometrial ablation. Discharge Vitals Temperature (Oral) 36.7 ???C Heart Rate (Monitored) 67 Respiratory Rate 17 Blood Pressure 139/69 Height 152.40 cm Weight 58.3 kg BMI 25.19 What to do next Instructions From Your Doctor Event Name Event Result Discharge Activity Arrange for a responsible adult supervision for 24 hours, Expect mild pain, Expect minimal amount of drainage and/or bleeding Discharge Restrictions No driving for 24 hrs, Do not make important decisions for 24 hours, Do not drink alcoholic beverages for 24 hours Discharge Diet(s) Regular Call Your Doctor For Persistent or heavy bleeding, Temperature above 101.5 degrees, Redness, swelling, or pus at operative site, Severe pain at the operative site, Persistent vomiting Pending Diagnostic Test Results None Discharge Instructions f/u in 2 weeks for office visit, wound checkhydrate w/ at least 2L/dayno heavy lifting greater than 10 lbs for 4-[address] ariel-padTake tylenol for pain. Roxicodone for breakthroughResume blood thinners in 5 days Previously Scheduled Follow-Up Appointments Monday 9:00 AM EDT With: JASMIN MILLS MD Where: [facility] [address], [address] [place] [address]- New Follow Up Appointments after Discharge Follow Up with ELIAZAR SHAH When: 01/23/2025 08:30 AM EDT Where: [address] [place] [address] [phone] Business (1) Follow Up with JASMIN MILLS When: Comments: Doctor's office will contact patient to schedule hospital follow up appointment. Medications What How Much When Instructions Next Dose New cephalexin (Keflex 500 mg Cap) 1 Capsules By Mouth 2 times a day Duration: 5 Days Pickup at [facility] [place] [id number] 01/09/25 @ 9am New docusate (Colace 50 mg oral capsule) 1 Capsules By Mouth 2 times a day as needed for for constipation Pickup at [place] [id number] 01/09/25 @ 9am New oxycodone (Roxicodone 5 mg Tab) 1 Tablets By Mouth Every 6 hours as needed for for pain Duration: 3 Days Pickup at [facility] as needed for pain Unchanged alendronate (alendronate 70 mg Tab) 1 Tablets By Mouth Every 7 days resume as prescribed Unchanged alprazolam 1 Milligram By Mouth Every day as needed for as needed for anxiety as needed Unchanged cholecalciferol (Vitamin D3 1000 intl units (25 mcg) Tab) 1 Tablets By Mouth Every day resume as prescribed Unchanged citalopram (citalopram 40 mg Tab) 1 Tablets By Mouth Every day resume as prescribed Unchanged clopidogrel (Plavix 75 mg Tab) 1 Tablets By Mouth Every day Resume in 5 days 01/13/25 at 9am Unchanged cyclobenzaprine (cyclobenzaprine 5 mg Tab) 1 Tablets By Mouth 3 times a day as needed for Pain resume as prescribed Unchanged estradiol topical (Estrace 0.1 mg/ g Cream) See instructions apply pea size amount to urethra/ inner vagina 3x/ week x 1 month, then 2x/ week for maintainence resume as prescribed Unchanged famotidine (famotidine 40 mg Tab) 1 Tablets By Mouth Once a day (at bedtime) resume as prescribed Unchanged lisinopril (lisinopril 40 mg Tab) 1 Tablets By Mouth Every day resume as prescribed Unchanged nitroglycerin (nitrogl (more content not included)... Normal [facility] Inpatient Clinical Summaryon 01-08-2025 Inpatient Clinical Summary Inpatient Clinical Summary [place] [id number] Clinical Summary Person Information: Name: SLY COY Age: 69 Years : 1955 Sex: Female PCP: ELIAZAR SHAH Marital Status: Race: White Ethnicity: Non- or Language: British Visit Id: Visit Reason: UTERINE BLADDER PROLAPSE, VAGINAL ATROPHY, STAGE 3 ANTERIOR PROLAPSE Speciality: Acuity: Enc Type: Outpatient in a Bed [facility] Service: Surgery Arrival: 01/07/2025 06:44:32 Discharge: Dispo Type: Address: [address] [id number] Provider Notes: Patient: SLY COY Age: 69 years Sex: Female : 1955 Associated Diagnoses: None Author: JASMIN MILLS MD Discharge Information Discharge Summary Information: Admitted 01/07/2025, Discharged 01/08/2025. Admitting physician: JASMIN MILLS MD. Consulting physician: MICHAEL BOB [facility]. Results Review Afebrile, vital signs stable. Physical Examination Gen: NAD, AOX3 Lungs: Nonlabored breathing CV: RRR Abd: Incisions clean dry, intact with no erythema, induration palpable fluctuance : No flank or suprapubic tenderness on palpation Extremities: No peripheral edema noted on palpa Hospital Course Patient is a 69-year-old female with anterior pelvic organ prolapse presenting for a robotic abdominal sacrocolpopexy, cystocele repair. She underwent the procedure on 01/07 and did well in the postoperative period. On postoperative day 1 the Jacobsen catheter was removed and she voided without difficulty, vaginal packing was removed as well. She was ambulated without difficulty, pain was well-controlled and thus was deemed appropriate for discharge to home. She discharged home with stool softener, pain medication, antibiotics Discharge Plan Discharge Time Discharge time > 30 min. Discharge Summary Plan Discharge Status: stable. Discharge instructions given: to patient. Discharge disposition: discharge to home self care. Prescriptions: continue same medications, called to pharmacy. Diagnosis: 2:CAD (coronary artery disease); 3:Hyperlipidemia; 4:Hypertension; 5:GERD (gastroesophageal reflux disease); 6:On deep vein thrombosis (DVT) prophylaxis Problems Active Microscopic hematuria Renal cyst Right flank pain Smoker Antiplatelet or antithrombotic long-term use Anticoagulant long-term use Frequency of urination Vaginal atrophy Female bladder prolapse UTI symptoms Hypertension Hyperlipidemia CAD (coronary artery disease) UTI (urinary tract infection) Personal history of kidney stones Kidney stones Smoking Status: Functional Status: Sensory Deficits: History of Falls: Mobility Assistance Prior to Admission: ADLs: Independent Current Level of Assistance for Self-Care/Mobility: Cognitive Status: Allergies No Known Medication Allergies Measurements: Height: 152.40 cm Weight: 58.3 kg Blood Pressure: 139 mmHg / 69 mmHg BMI: 25.19 kg/m2 Procedures No Procedures Performed or Documented Immunizations No Immunizations Documented This Visit Final Med List: alendronate (alendronate 70 mg Tab) 1 Tablets By Mouth every 7 days. alprazolam 1 Milligram By Mouth every day as needed as needed for anxiety. cephalexin (Keflex 500 mg Cap) 1 Capsules By Mouth 2 times a day for 5 Days. Refills: 0. cholecalciferol (Vitamin D3 1000 intl units (25 mcg) Tab) 1 Tablets By Mouth every day. citalopram (citalopram 40 mg Tab) 1 Tablets By Mouth every day. clopidogrel (Plavix 75 mg Tab) 1 Tablets By Mouth every day. cyclobenzaprine (cyclobenzaprine 5 mg Tab) 1 Tablets By Mouth 3 times a day as needed Pain. docusate (Colace 50 mg oral capsule) 1 Capsules By Mouth 2 times a day as needed for constipation. Refills: 0. estradiol topical (Estrace 0.1 mg/g Cream) apply pea size amount to urethra/inner vagina 3x/week x 1 month, then 2x/week for maintainence. Refills: 3. famotidine (famotidine 40 mg Tab) 1 Tablets By Mouth once a day (at bedtime). lisinopril (lisinopril 40 mg Tab) 1 Tablets By Mouth every day. nitroglycerin (nitroglycerin 0.4 mg sublingual Tab) 1 Tablets Sublingual every 5 minutes as needed for chest pain. omeprazole (omeprazole 40 mg Cap-DR) 1 Capsules By Mouth at bedtime. oxycodone (Roxicodone 5 mg Tab) 1 Tablets By Mouth every 6 hours as needed for pain for 3 Days. Refills: 0. rosuvastatin (rosuvastatin 40 mg Tab) 1 Tablets By Mouth every day. tamsulosin (tamsulosin 0.4 mg Cap) 1 Capsules By Mouth every day. tramadol (traMADOL 50 mg Tab) 1 Tablets By Mouth every 12 hours as needed for pain. Care Team Members: Attending Physician: JASMIN MILLS MD Consulting Physician: Bhanu UP MD Referring Physician: JASMIN MILLS MD Follow up: W (more content not included)... Normal [facility] Inpatient Patient Summaryon 01-08-2025 Inpatient Patient Summary Inpatient Patient Summary [place] [id number] Patient Discharge Instructions PERSON INFORMATION Name: SLY COY Date of : 1955 Current Date: 01/08/2025 10:04:50 PHYSICIANS Admitting Physician: JASMIN MILLS MD Primary Care Physician: ELIAZAR SHAH PCP Phone Number: [phone] Comment: Discharge Diagnosis: 2:CAD (coronary artery disease); 3:Hyperlipidemia; 4:Hypertension; 5:GERD (gastroesophageal reflux disease); 6:On deep vein thrombosis (DVT) prophylaxis Condition at Discharge: Stable SLY COY has been given the following list of follow-up instructions, prescriptions, and patient education materials: PATIENT FOLLOW-UP INFORMATION Diet: Regular Discharge Activity: Arrange for a responsible adult supervision for 24 hours, Expect mild pain, Expect minimal amount of drainage and/or bleeding Discharge Restrictions: No driving for 24 hrs, Do not make important decisions for 24 hours, Do not drink alcoholic beverages for 24 hours Wound Care Instructions: Remove Your Dressing In Days Call Your Doctor For: Persistent or heavy bleeding, Temperature above 101.5 degrees, Redness, swelling, or pus at operative site, Severe pain at the operative site, Persistent vomiting IF UNABLE TO CONTACT YOUR PHYSICIAN AND YOU FEEL IT IS AN EMERGENCY, GO TO THE NEAREST EMERGENCY ROOM OR CALL 911 Home Treatment: Devices/Equipment: Special Services: Additional Instructions: f/u in 2 weeks for office visit, wound check hydrate w/ at least 2L/day no heavy lifting greater than 10 lbs for 4-6 weeks Spot bleeding expected. Place ariel-pad Take tylenol for pain. Roxicodone for breakthrough Resume blood thinners in 5 days Primary Care Physician to provide the following pending test results: None Follow up: With: Address: When: ELIAZAR SHAH [address] [place] [phone] [facility] () 01/23/2025 8:30 AM With: Address: When: JASMIN MILLS Comments: Doctor's office will contact patient to schedule hospital follow up appointment. In the event that this physician does not participate in your insurance network, please consult with your insurance company to find a nearby participating provider. Type Location Start [facility] Office Visit [facility] [place] 01/27/2025 9:00 AM 01/27/2025 9:15 AM Confirmed Comment: ANNELIESE Sandoval DEBRA L, have received the attached patient education materials/instruction s and have verbalized understanding: Patient Signature Date Clinican/Nurse Signature Date HERE ARE THE MEDICATION CHANGES THAT OCCURRED DURING YOUR HOSPITAL STAY New Medications [facility] [address] [place] [id number], [phone] cephalexin (Keflex 500 mg Cap) 1 Capsules By Mouth 2 times a day for 5 Days. Refills: 0. Last Dose: ____Next Dose: ____ docusate (Colace 50 mg oral capsule) 1 Capsules By Mouth 2 times a day as needed for constipation. Refills: 0. Last Dose: ____Next Dose: ____ oxycodone (Roxicodone 5 mg Tab) 1 Tablets By Mouth every 6 hours as needed for pain for 3 Days. Refills: 0. Last Dose: ____Next Dose: ____ Medications to Continue with No Changes Other Medications alendronate (alendronate 70 mg Tab) 1 Tablets By Mouth every 7 days. Last Dose: ____Next Dose: ____ alprazolam 1 Milligram By Mouth every day as needed as needed for anxiety., pt unsure if she is on this Last Dose: ____Next Dose: ____ cholecalciferol (Vitamin D3 1000 intl units (25 mcg) Tab) 1 Tablets By Mouth every day. Last Dose: ____Next Dose: ____ citalopram (citalopram 40 mg Tab) 1 Tablets By Mouth every day. Last Dose: ____Next Dose: ____ clopidogrel (Plavix 75 mg Tab) 1 Tablets By Mouth every day. Last Dose: ____Next Dose: ____ cyclobenzaprine (cyclobenzaprine 5 mg Tab) 1 Tablets By Mouth 3 times a day as needed Pain. Last Dose: ____Next Dose: ____ estradiol topical (Estrace 0.1 mg/g Cream) apply pea size amount to urethra/inner vagina 3x/week x 1 month, then 2x/week for maintainence. Refills: 3. Last Dose: ____Next Dose: ____ famotidine (famotidine 40 mg Tab) 1 Tablets By Mouth once a day (at bedtime). Last Dose: ____Next Dose: ____ lisinopril (lisinopril 40 mg Tab) 1 Tablets By Mouth every day. Last Dose: ____Next Dose: ____ nitroglycerin (nitroglycerin 0.4 mg sublingual Tab) 1 Tablets Sublingual every 5 minutes as needed for chest pain. Last Dose:_ (more content not included)... [facility] ABO/Rhon 01-07-2025 ABO/Rh Positive Invalid Interpretation Code [facility] Comment on above: Performed By: #### [id number] #### [facility] [address] [place] [address] ABO/Rh History Checkon 01-07 ABO/Rh History Check Type verified by second s Normal [facility] Comment on above: Performed By: #### 1 [id number] #### [facility] [address] [place] [address] ABO/Rh Retypeon 01-07-2025 ABO/Rh Retype Interp Positive Invalid Interpretation Code [facility] Comment on above: Performed By: #### 1 [id number] #### [facility] [address] [place] [address] ABSCon 01-07-2025 ABSC Gel Interp Negative Normal [facility] Comment on above: Performed By: #### 1 [id number] ####[facility] [id number] [place] [address] BLOOD BANKOrdered By: Charles Patel on 01-07-2025 ABO/Rh Interp Positive Invalid Interpretation Code [facility] BB Subsection ABSC Gel Interp Negative (01/07/25 7:37 AM) Normal [facility] BB Subsection ABO/Rh Retype Interp Positive Invalid Interpretation Code [facility] BB Subsection Blood Bank ID#on 01-07-2025 BBID# [id number] Invalid Interpretation Code [facility] Comment on above: Performed By: #### 1 [id number] #### [facility] [address] [place] [address] Interdisciplinary Note - Brett e Manageron 01-07-2025 Interdisciplinary Note - Outside [employer] Interdisciplinary Note - Outside [employer] SW spoke with patient in room. No family in room. Patient is alert and oriented and participates in discharge planning. Currently on O2 2L, does not have at home. Patient is from home lives alone. Patient is under observation. With a dx of Bertram hall,cystocele repair. Nikunj Mills MD performed the surgery. Has a consult for a Hospitalist. Patient verified PCP, insurance and DME, reports having none. She states she has not had HH previously. [place] form was singed no 01/07/25. Reviewed Medicare rights, denies any questions. This patient will have her daughter Evita transport her home. Patient white board updated, and contact information provided. Normal [facility] Comment on above: Result Comment: Elec tronically Signed By: Haylee Moyer\.br\Date and Time Signed: 01/07/25 14:16 EDT Main OR PACU I Recordon 07 Main OR PACU I Record Main OR PACU I Rec ord PACU Phase I Document Type FT Summary Primary Physician: JASMIN MILLS MD Finalized Date/Time: 01/07/25 12:54:03 Pt. Name: SLY COY /Sex: 1955 Female Med Rec #: [id number] Physician: JASMIN MILLS MD Financial #: [id number] Pt. Type: O Room/Bed: Admit/Disch: 01/07/25 06:44:32 - Institution: Case Times PACU I FT Pre-Care Text: Identifies barriers to communication and implements measures to provide psychological support Develops individualized plan of care, and ensures continuity of care Maintains patient's dignity and privacy, and maintains patient confidentiality Identifies and reports philosophical, cultural, and spiritual beliefs and values Identifies individual values and wishes concerning care Implements aseptic technique, and administers prescribed antibiotic therapy and immunizing agents as ordered Evaluates postoperative tissue perfusion Implements thermoregulation measures, and monitors body temperature Evaluates postoperative respiratory status Evaluates postoperative cardiac status Evaluates postoperative neurological status Assesses pain control, collaborated in initiating patient-controlled analgesia and implements alternative methods of pain control Verifies allergies, administers prescribed medications and solutions, evaluates response to medications Entry 1 In PACU I 01/07/25 11:50:00 Discharge from PACU 01/07/25 12:30:00 I Outcomes Met? Yes Last Modified By: Clover Nicholson RN 01/07/25 12:53:47 Post-Care Text: The patient demonstrates knowledge of the expected response to the operative or invasive procedure The patient's care is consistent with the individualized perioperative plan of care The patient's right to privacy is maintained The patient's value system, lifestyle, ethnicity, and culture are considered, respected, and incorporated into the perioperative plan of care The patient participates in decisions affecting his or her perioperative plan of care The patient is free from signs and symptoms of infection The patient has wound/tissue perfusion consistent with or improved from baseline levels established preoperatively The patient is at or returning to normothermia at the conclusion of the immediate postoperative period The patient's respiratory function is consistent with or improved from baseline levels established preoperatively The patient's cardiovascular status is consistent with or improved from baseline levels established preoperatively The patient's cardiovascular status is consistent with or improved from baseline levels established preoperatively The patient demonstrates and/or reports adequate pain control throughout the perioperative period The patient received appropriate medication(s), safely administered during the perioperative period Acuity Level PACU I FT Entry 1 Start Time 01/07/25 11:50:00 Stop Time 01/07/25 12:30:00 Acuity Level Acuity Level I Last Modified By: Clover Nicholson RN 01/07/25 12:53:59 Finalized By: Clover Nicholson RN Document Signatures Signed By: Clover Nicholson RN 01/07/25 12:54 Normal [facility] Main OR Preoperative Recordo n 01-07-2025 Main OR Preoperative Record Main OR Preoperative Record PreOp Document Type FT Summary Primary Physician: JASMIN MILLS MD Finalized Date/Time: 01/07/25 12:37:04 Pt. Name: SLY COY Kevyn /Sex: 1955 Female Med Rec #: [id number] Physician: JASMIN MILLS MD Financial #: [id number] Pt. Type: O Room/Bed: [place] [address] Admit/Disch: 01/07/25 06:44:32 - Institution: Case Times PreOp FT Pre-Care Text: Verifies consent for planned procedure, identifies individual values and wishes concerning care, includes family members in perioperative teaching Entry 1 Patient Times. In Pre Surgery 01/07/25 06:50:00 Out Pre Surgery 01/07/25 08:17:00 Outcomes Met? Yes Last Modified By: Avery Zambrano RN 01/07/25 12:37:03 Post-Care Text: The patient participates in decisions affecting his or her perioperative plan of care Finalized By: Avery Zambrano RN Document Signatures Signed By: Avery Zambrano RN 01/07/25 12:37 Normal [facility] Operative Reporton Operative Report Operative Report Patient: SLY COY MRN: [id number] Age: 69 years Sex: Female : 1955 Associated Diagnoses: None Author: JASMIN MILLS MD Procedure SURGEON: Jasmin Mills MD PREOPERATIVE DIAGNOSIS: Stage III anterior bladder wall prolapse POSTOPERATIVE DIAGNOSIS: Same PROCEDURE: Robotic extensive lysis of adhesions, repair of vaginotomy, cystocele repair FINDINGS: Grade 3 anterior bladder wall prolapse repaired with significant reduction at conclusion of procedure, excellent vaginal length ANESTHESIA: General INTRAVENOUS FLUIDS: None ESTIMATED BLOOD LOSS: 0cc TUBES AND DRAINS: 18 [place] Jacobsen catheter, vaginal packing SPECIMENS: None COMPLICATIONS: None INDICATIONS FOR PROCEDURE: Patient is a 69-year-old female with stage III anterior bladder wall prolapse presenting for the aforementioned procedure. H&P was reviewed, informed consent was obtained, patient understood risk, benefits, alternatives to the procedure and wished to proceed. OPERATIVE DETAIL: Patient was met in the preoperative area and 5000 units subcutaneous heparin, 2 g of Ancef was started. She was then brought to the operative suite and placed on continuous pulse oximetry and cardiac monitoring by anesthesia. She was placed in the supine position. Once anesthesia was induced she was placed in a dorsolithotomy position and prepped and draped with the appropriate areas padded. We began by making a supraumbilical incision through which a Veress needle was placed and insufflation to 15 mmHg was done. The 8 mm Visiport was placed in 4 additional ports including a 12 mm air seal port was placed. The robot was then docked. We began the procedure by doing an extensive lysis of adhesions at the sigmoid. Once the sigmoid was reflected medially we found the sacrum and the anterior longitudinal ligament. We then proceeded to the anterior dissection and the bladder was filled with 180 cc send a EEA sizer was placed in the vagina with dissection of the anterior wall. We then proceeded to the posterior wall. During the posterior wall dissection and inadvertent vaginotomy was made and a 2-0 Vicryl was used to close the defect. Due to the fact that a mesh was can be placed over the site the decision was made to repair the defect vaginally and the peritoneum overlying the vagina was closed with a 3 oh V-Loc in a running fashion. Don was placed over the bed. We then proceeded to the vaginal portion and the cystocele was grasped with Allis clamps. 1% lidocaine with epinephrine was used to inject the midline and incision was made. We then meticulously dissected the cystocele off and the excess vaginal tissue was excised. The cystocele was then reduced using 3 OV lock position and all the way back. Once this was done hemostasis was persistent and achieved with electrocautery. An additional excess vaginal mucosa was then trimmed. We were able to successfully place the EEA sizer along with 3 fingers into the vagina. Once this was done the vagina was closed with 2-0 Vicryl in a running fashion. We then obtained a 22 [place] Irish rigid cystoscopy with a 30 lens and inserted into the urethral meatus and advanced into the bladder. The left and right ureteral orifices were visualized and E flux was noted. The scope was then removed and an 18 [place] Jacobsen catheter was placed. Vaginal packing was also placed. This then concluded the procedure. Patient was then awakened by anesthesia and transferred to PACU in stable condition. PLAN: Admission overnight, patient will follow-up in 2 weeks for office visit. Jacobsen catheter, vaginal packing, removed in the a.m. Normal [facility] Comment on above: Result Comment: Elec tronically Signed By: THONY BOB, JASMIN\.br\Date and Time Signed: 01/07/25 12:30 EDT POCT EKGon 12-31-2024 [facility] BMPon 12-23-2024 Anion gap [Moles/Vol] 10 mmol/L Normal 6-16 [facility] Comment on above: Performed By: #### 2 [id number] #### [facility] [address] [place] [address] BUN/Creat Ratio 13 No Units Normal 10-20 [facility] Comment on above: Performed By: #### 2 [id number] #### [facility] [address] [place] [address] Calcium [Mass/Vol] 9.1 mg/dL Normal 8.9-11.1 [facility] Comment on above: Performed By: #### 2 [id number] #### [facility] [address] [place] [address] Chloride [Moles/Vol] 103 mmol/L Normal 101-111 [facility] Comment on above: Performed By: #### 2 [id number] #### [facility] [address] [place] [address] CO2 [Moles/Vol] 28 mmol/L Normal 21-31 [facility] Comment on above: Performed By: #### 2 [id number] #### [facility] [address] [place] [address] Creatinine [Mass/Vol] 0.7 mg/dL Normal 0.5-1.3 [facility] Comment on above: Performed By: #### 2 [id number] #### [facility] [address] [place] [address] Glucose [Mass/Vol] 95 mg/dL Normal 55-199 [facility] Comment on above: Performed By: #### 2 [id number] #### [facility] [address] [place] [address] Potassium [Moles/Vol] 4.4 mmol/L Normal 3.5-5.3 [facility] Comment on above: Performed By: #### 2 [id number] #### [facility] [address] [place] [address] Sodium [Moles/Vol] 137 mmol/L Normal 135-145 [facility] Comment on above: Performed By: #### 2 [id number] #### [facility] [address] [place] [address] Urea nitrogen [Mass/Vol] 9 mg/dL Normal 5-21 [facility] Comment on above: Performed By: #### 2 [id number] #### [facility] [address] [place] [address] CBC w/ Auto Diffon 5 Basophil Absolute 0.1 E9/L Normal 0.0-0.2 [facility] Comment on above: Performed By: #### 2 [id number] #### [facility] [address] [place] [address] Basophils/100 WBC (Bld) 1.2 % Normal 0.0-2.0 [facility] Comment on above: Performed By: #### 2 [id number] #### [facility] [address] [place] [address] Eos Absolute 0.2 E9/L Normal 0.0-0.5 [facility] Comment on above: Performed By: #### 2 [id number] #### [facility] [address] [place] [address] Eosinophils/100 WBC (Bld) 3.2 % Normal 0.0-8.0 [facility] Comment on above: Performed By: #### 2 [id number] #### [facility] [address] [place] [address] Erythrocyte distribution width (RBC) [Ratio] 13.1 % Normal 10.9-14.2 [facility] Comment on above: Performed By: #### 2 [id number] #### [facility] [address] [place] [address] Hematocrit (Bld) [Volume fraction] 39.9 % Normal 34.0-46.0 [facility] Comment on above: Performed By: #### 2 601557 #### [facility] [address] [place] [address] Hemoglobin (Bld) [Mass/Vol] 13.4 g/dL Normal 12.0-16.0 [facility] Comment on above: Performed By: #### 2 [id number] #### [facility] [address] [place] [address] Lymph Absolute 2.5 E9/L Normal 1.0-4.0 [facility] Comment on above: Performed By: #### 2 [id number] #### [facility] [address] [place] [address] Lymphocytes/100 WBC (Bld) 36.1 % Normal 14.0-50.0 [facility] Comment on above: Performed By: #### 2 [id number] #### [facility] [address] [place] [address] MCH (RBC) [Entitic mass] 29.8 pg Normal 27.0-34.0 [facility] Comment on above: Performed By: #### 2 [id number] #### [facility] [address] [place] [address] MCHC (RBC) [Mass/Vol] 33.7 g/dL Normal 31.4-36.0 [facility] Comment on above: Performed By: #### 2 [id number] #### [facility] [address] [place] [address] MCV (RBC) [Entitic vol] 88.5 fL Normal 80.0-100.0 [facility] Comment on above: Performed By: #### 2 [id number] #### [facility] [address] [place] [address] [place] Absolute 0.5 E9/L Normal 0.2-1.0 [facility] Comment on above: Performed By: #### 2 [id number] #### [facility] [address] [place] [address] Monocytes/100 WBC (Bld) 7.2 % Normal 4.0-14.0 [facility] Comment on above: Performed By: #### 2 [id number] #### [facility] [address] [place] [address] Neutro Absolute 3.6 E9/L Normal 2.0-7.5 [facility] Comment on above: Performed By: #### 2 [id number] #### [facility] [address] [place] [address] Neutro Auto 52.3 % Normal 36.0-75.0 [facility] Comment on above: Performed By: #### 2 [id number] #### [facility] [address] [place] [address] Platelet 317.0 E9/L Normal 150.0-500.0 [facility] Comment on above: Performed By: #### 2 [id number] #### [facility] [address] [place] [address] Platelet mean volume (Bld) [Entitic vol] 7.1 fL Normal 6.4-10.8 [facility] Comment on above: Performed By: #### 2 [id number] #### [facility] [address] [place] [address] RBC 4.5 E12/L Normal 4.3-5.9 [facility] Comment on above: Performed By: #### 2 [id number] #### [facility] [address] [place] [address] WBC 6.8 E9/L Normal 4.0-11.0 [facility] Comment on above: Performed By: #### 2 [id number] #### [facility] [address] [place] [address] CHEMISTRYOrdered By: SYSTEM SYSTEM on 12-23-2024 Anion gap [Moles/Vol] 10 mmol/L Normal 6 - 16 mEq/L R emisol Chem Calcium [Mass/Vol] 9.1 mg/dL Normal 8.9 - 11. 1 mg/dL [facility] Chem Chloride [Moles/Vol] 103 mmol/L Normal 101 - 1 11 mmol/L [facility] Chem CO2 [Moles/Vol] 28 mmol/L Normal 21 - 31 mmol/L [facility] Creatinine [Mass/Vol] 0.7 mg/dL Normal 0.5 - 1.3 mg/dL [facility] Chem GFR/1.73 sq M.predicted MDRD (S/P/Bld) [Vol rate/Area] 93 mL/min/1.73 m2 Normal >=59mL/min/1 .73 m2 [facility] Chem Glucose [Mass/Vol] 95 mg/dL Normal 55 - 199 mg/dL [facility] Potassium [Moles/Vol] 4.4 mmol/L Normal 3.5 - 5.3 mmol/L [facility] Sodium [Moles/Vol] 137 mmol/L Normal 135 - 145 mmol/L [facility] Chem Urea nitrogen [Mass/Vol] 9 mg/dL Normal 5 - 21 mg/dL [facility] Chem Urea nitrogen/Creatinine [Mass ratio] 13 mg/mg Normal 10 - 20 [facility] Chem COAGULATIONOrdered By: Quincy Mckinley on 12-23-2024 aPTT Coag (PPP) [Time] 32.0 s Normal 25.1 - 36.5 second(s) [facility] Comment on above: Interpretive Data: P arameter 15 days - 4 weeks 1 - 5 months 6 - 11 months 1 - 5 years 6 - 10 years 11 - 17 years PTT Mean: 35.4 (27.6-45.6) Mean: 33.5 (24.8-40.7) Mean: 32.4 (25.1-40.7) Mean: 31.6 (24.0-39.2) Mean: 31.6 (26.9-38.7) Mean: 31.0 (24.6-38.4) Pediatric Reference ranges were obtained from a study by Aram Prince et al. prepared from 1437 samples obtained at 7 different centers using the same coagulation reagent and instrumentation as [facility]. Currently there are no coagulation studies available worldwide for children to 14 days, and no normal ranges. Heparin therapeutic range (represented by Anti-Factor Xa activity of 0.2 - 0.4 U/mL) corresponds to PTT of 56.6 - 109.0 sec. INR Coag (PPP) [Relative time] 0.88 {INR} Invalid Interpretation Code [facility] Comment on above: Interpretive Data: I NR results are specifically intended to assess patients stabilized on long-term Anticoagulation therapy suggested INR s Less Intensive Anticoagulation 2.0 3.0 Conventional Range 3.0 4.5 PT Coag (PPP) [Time] 9.8 s Normal 9.4 - 1 2.5 second(s) [facility] Comment on above: Interpretive Data: 1 5 days - 4 weeks 1 - 5 months 6 -11 months 1 5 years 6 10 years 11 -17 years Mean: 11.2 (9.5 12.6) Mean: 11.0 (9.7 12.8) Mean: 11.0 (9.8 13.0) Mean: 11.3 (9.9 13.4) Mean: 11.7 (10.0 14.6) Mean: 11.8 (10.0 - 14.1) Pediatric Reference ranges were obtained from a study by Aram Prince et al. prepared from 1437 samples obtained at 7 different centers using the same coagulation reagent and instrumentation as [facility]. Currently there are no coagulation studies available worldwide for children to 14 days, and no normal ranges. HEMATOLOGYOrdered By: SYSTEM SYSTEM on 12-23-2024 Basophils/100 WBC (Bld) 1.2 % Normal 0.0 - 2.0 % Remisol Heme Basophils/Leukocytes Auto (Bld) [Pure # fraction] 0.1 E9/L Normal 0.0 - 0.2 E9/L Rem[facility] Heme Eosinophils (Bld) [#/Vol] 0.2 E9/L Normal 0.0 - 0.5 E9/L Rem[facility] Heme Eosinophils/100 WBC (Bld) 3.2 % Normal 0.0 - 8.0 % Rem[facility] Heme Erythrocyte distribution width (RBC) [Ratio] 13.1 % Normal 10.9 - 14.2 % Rem[facility] Heme Hematocrit (Bld) [Volume fraction] 39.9 % Normal 34.0 - 46.0 % Remisol Heme Hemoglobin (Bld) [Mass/Vol] 13.4 g/dL Normal 12.0 - 16.0 gm/dL Rem[facility] Heme Lymphocytes (Bld) [#/Vol] 2.5 E9/L Normal 1.0 - 4.0 E9/L Rem[facility] Heme Lymphocytes/100 WBC (Bld) 36.1 % Normal 14.0 - 50.0 % Remisol Heme MCH (RBC) [Entitic mass] 29.8 pg Normal 27.0 - 34.0 pg Remisol Heme MCHC (RBC) [Mass/Vol] 33.7 g/dL Normal 31.4 - 36.0 gm/dL Rem[facility] Heme MCV (RBC) [Entitic vol] 88.5 fL Normal 80.0 - 100.0 fL [facility] Heme Monocytes (Bld) [#/Vol] 0.5 E9/L Normal 0.2 - 1.0 E9/L Rem[facility] Heme Monocytes/100 WBC (Bld) 7.2 % Normal 4.0 - 14.0 % Rem[facility] Heme Neutrophils (Bld) [#/Vol] 3.6 E9/L Normal 2.0 - 7.5 E9/L Rem[facility] Heme Neutrophils/100 WBC (Bld) 52.3 % Normal 36.0 - 75.0 % [facility] Heme Platelet mean volume (Bld) [Entitic vol] 7.1 fL Normal 6.4 - 10.8 fL [facility] Heme Platelets (Bld) [#/Vol] 317.0 E9/L Normal 150.0 - 500.0 E9/L Remisol Heme RBC (Bld) [#/Vol] 4.5 E12/L Normal 4.3 - 5.9 E12/L Rem[facility] Heme WBC corrected for nucl RBC Auto (Bld) [#/Vol] 6.8 E9/L Normal 4.0 - 11.0 E9/L Remisol Heme PT & PTTon 12-23-2024 INR Coag (PPP) [Relative time] 0.88 {INR} Invalid Interpretation Code [facility] Comment on above: Result Comment: INR results are specifically intended to assess patients stabilized on long-term Anticoagulation therapy suggested INR???s ???Less Intensive Anticoagulation??? 2.0 ??? 3.0 Conventional Range 3.0 ??? 4.5 Performed By: #### 1 [id number] #### [facility] [address] [place] [address] PT 9.8 second(s) Normal 9.4-12.5 [facility] Comment on above: Result Comment: 15 d ays - 4 weeks 1 - 5 months 6 -11 months 1 ??? 5 years 6 ??? 10 years 11 -17 years Mean: 11.2 (9.5 ??? 12.6) Mean: 11.0 (9.7 ??? 12.8) Mean: 11.0 (9.8 ??? 13.0) Mean: 11.3 (9.9 ??? 13.4) Mean: 11.7 (10.0 ??? 14.6) Mean: 11.8 (10.0 - 14.1) Pediatric Reference ranges were obtained from a study by Aram Prince et al. prepared from 1437 samples obtained at 7 different centers using the same coagulation reagent and instrumentation as [facility]. Currently there are no coagulation studies available worldwide for children to 14 days, and no normal ranges. Performed By: #### 1 [id number] #### [facility] [address] [place] [address] PTT 32.0 second(s) Normal 25.1-36.5 [facility] Comment on above: Result Comment: Para meter 15 days - 4 weeks 1 - 5 months 6 - 11 months 1 - 5 years 6 - 10 years 11 - 17 years PTT Mean: 35.4 (27.6-45.6) Mean: 33.5 (24.8-40.7) Mean: 32.4 (25.1-40.7) Mean: 31.6 (24.0-39.2) Mean: 31.6 (26.9-38.7) Mean: 31.0 (24.6-38.4) Pediatric Reference ranges were obtained from a study by Aram Prince et al. prepared from 1437 samples obtained at 7 different centers using the same coagulation reagent and instrumentation as [facility]. Currently there are no coagulation studies available worldwide for children to 14 days, and no normal ranges. Heparin therapeutic range (represented by Anti-Factor Xa activity of 0.2 - 0.4 U/mL) corresponds to PTT of 56.6 - 109.0 sec. Performed By: #### 1 [id number] #### [facility] [address] [place] [address] eGFRon 12-23-2024 eGFR 93 mL/min/1.73 m2 Normal >=59 [facility] Comment on above: Performed By: #### 1 [id number] #### [facility] [address] [place] [address] Urology Office/Clinic Noteon 11-05-2024 Urology Office/Clinic Note Urology Office/Clinic Note Chief Complaint 1 month [...] of calcification projecting over the Rt kidney [facility] ER 03/27/23 w/ c/o of blood in [...] right lower pole stone on 10/02/24 by KML. Today, she presents for 1 month follow up since procedure. States since her ESWL procedure, she has been experiencing persistent R flank pain that radiates to the front of her abdomen. She denies passing any stone fragments. UA today w/ small blood. Patient denies gross hematuria. Reviewed RAFAEL/KUB with patient. Discussed w/pt that RAFEAL shows right stone up to 10 mm, but likely residual stone fragments. No hydro. KUB with left nephrolithiasis. Given R flank pain and no passage of stone fragments, recommend obtaining CT abd/pelvis w/o contrast to further evaluate for ureteral stone and stone burden. She reports she recently went to [facility] ER 10/22/[address] CT imaging obtained, but I am only able to see CT head and C-spine mentioned in ER note. Therefore, will obtain CT abd/pelvis w/o contrast at [facility] per pt request. She is agreeable to plan. All questions answered. Also discussed general stone prevention at today's visit including increasing water intake to make 2.5 L UOP/day. Add lemon/[place]. Counseled pt on dietary modifications (increase fruits/vegetables and limit animal protein). -Obtain CT abd/pelvis w/o contrast at [facility], call pt w/ results -If no ureteral [...] Urnls Dip Stick Auto w/o Microscopy POC 25602 2. Right flank pain (R10.9: Unspecified abdominal pain) -See #1 -Obtain CT abd/pelvis w/o con at [facility] Ordered: CT Abdomen/Pelvis w/o Contrast 3. Personal history of kidney stones (Z87.442: Personal history of urinary calculi) Previously seen by PRW due to Kidney Stones. S/P Lt ESWL 03/05/09. -See #1 4. Female bladder prolapse (N81.10: Cystocele, unspecified) S/p vaginal hysterectomy 2018. Still has ovaries. S/p bladder sling with mesh. Unsure of date. 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 S/p Cysto, L Ureteroscopy, stone extraction, stent placement 07/12/23 - grade III cystocele to level of introitus -Evaluated by ROSIE w/ plans for robotic sacrocolpopexy in January 2025 per (more content not included)... Normal [facility] Comment on above: Result Comment: Elec tronically Signed By: Paige BURTON, Venita\.br\Date and Time Signed: 11/05/24 19:28 EDT Urine Cultureon 09-20-2024 Bacteria identified Cx Nom (U) 20,000 colonies/ml mixed bacterial skin contaminants 2 Days PERFORMED BY: [place] [address] PATHOLOGIST ACTIVATED SLUDGE OPERATOR NAKIA RUBIN M.D. Normal [facility] Comment on above: Performed By: #### C UU #### [address] Ambulatory Visit Summaryon 0 08-27-2024 Ambulatory Visit Summary Ambulatory Visit Summary SLY COY :1955 Visit Date:08/27/2024 Ambulatory Visit Instructions Your Diagnosis Female bladder prolapse Kidney stones Vaginal atrophy Antiplatelet or antithrombotic long-term use Smoker Your Care Team Attending Physician - THONY BOB, JASMIN Primary Care Physician - NADIRA SUBRAMANIAN CNP [...] or breast (more content not included)... Normal [facility] Urology Office/Clinic Noteon 08-27-2024 Urology Office/Clinic Note [...] with voice recognition artificial intelligence software, specifically [employer], Still[employer]ure and or [employer]ium. Substitutions may have occurred due to the inherent limitations of voice recognition and artificial intelligence software. 1. Female bladder prolapse (N81.10: Cystocele, unspecified) S/p vaginal hysterectomy 2019. Still has ovaries. S/p bladder sling with mesh. Unsure of date. 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 Has a heart stent. Elevated risk of periop complications. 5. Smoker (F17.200: Nicotine dependence, unspecified, uncomplicated) Pt states she has been cutting back. Pt states I'm trying . Cessation encouraged. Patient presents with a stage III anterior prolapse. I discussed surgical options including transvaginal repair with [place] tissue, abdominal sacrocolpopexy and patient opts for the latter. She was counseled on the risk, benefits, alternatives and she would like to proceed. I discussed with her in detail about the surgery, side effect profile and patient communicated full understanding. Will schedule the surgery for October. With 1 night hospital stay. Follow-up With When Contact Information THONY BOB, JASMIN, URL Additional Instructions: Schedule robotic-assisted sacrocolpopexy in October Patient Education Steps to Quit Smoking How to Use a Vaginal Pessary Sary Sandoval, personally scribed for Dr. Bess on 08/27/2024 14:17:35. . Documentation recorded by the Sary anaya accurat (more content not included)... Normal [facility] Comment on above: Result Comment: Elec tronically Signed By: JASMIN MILLS MD\.br\Date and Time Signed: 08/27/24 14:39 EST\.br\Electronically Co-Signed By: Sary Navarro\elenita\Date and Time Co-Signed: 08/27/24 14:18 EST Patient Letter FTon 2024 Patient Letter [facility] Patient Letter [facility] August 13, 2024 SLY COY [address] [place] [id number] : 1955 Dear _ , You missed [...] select option 3. Sincerely, [facility] [address] [place] [address] [facility] CNOVon 08-05-2024 [facility] Office Visit ([facility] ) COYSYL ([id number]) 1955 F Date Time Provider Department 08/05/24 11:00 AM MICAELA MONROY [facility] During your visit today, we recorded [...] with more than 50% of the total slhd-tt-daft time of the visit in counseling / coordination of care. Referring Provider: FERNANDO CASTELLON [[id number]] Allergies As of Date: 08/05/2024 (No Known [...] Status:Closed by MICAELA MONROY on 08/05/[address] [facility] Urology Office/Clinic Noteon 07-24-2024 Urology [...] 08/08/[address] AP w con 01/16/24 [facility]. KUB/RAFAEL 04/30/24 [facility] Dysuria: _at times Incomplete [...] signs involv (more content not included)... Normal [facility] Comment on above: Result Comment: Elec tronically Signed By: Elizabeth Lott MD\.br\Date and Time Signed: 07/24/24 10:06 EST\.br\Electronically Co-Signed By: Shahana Mazariegos\.br\Date and Time Co-Signed: 07/24/24 09:51 EST POCT EKGOrdered By: Clover Wyman on 07-01-2024 [employer] [facility] 05-31-[address] [facility] Telephone ([facility]) SLY COY ([id number]) 1955 F Date Time Provider Department 05/31/24 MICAELA MONROY [facility] During your visit today, we recorded the following information about you: Compa Tavares 05/31/2024 4:04 PM Addendum For documentation purpose- Left a detail message for the patient to schedule an appointment with Dr. Monroy (40 mins slot). Referral from [facility]. Thank you Allergies As of Date: 05/31/2024 [...] Status:Closed by COMPA TAVARES on 05/31/[address] [facility] coli+jejuni BD MaxOrde red By: Himanshu Borjas on 05-31-2024 C. coli+jejuni tuf gene DOMONIQUE+probe Ql (Stl) Campy coli+jejuni BD Max Negative [facility] Comment on above: Campylobacter test i ncludes C. jejuni and C. coli. Clostridioides difficile tox in B tcdB gene [Presence] in Stool by DOMONIQUE with probe deteOrdered By: Himanshu Borjas on 05-31-2024 C. difficile toxin B tcdB gene DOMONIQUE+probe Ql (Stl) Clostridioides difficile toxin B tcdB gene [Presence] in Stool by DOMONIQUE with probe dete Negative [facility] Comment on above: Testing performed by RT-PCR Clostridium Difficileon 05-11 Clostridium Difficile Negative Normal Negative [facility] Comment on above: Result Comment: Test ing performed by RT-PCR PERFORMED BY: [place] [address] PATHOLOGIST ACTIVATED SLUDGE OPERATOR NAKIA RUBIN M.D. Performed By: #### G IARDIA, STCYRPTOAG #### [facility] , #### ENT BACT PANEL, OVP, CDT #### [facility] [address] [place] [address] [place] Cryptosporidium Antigen Stoo danny 05-31-2024 Cryptosporidium Antigen Stool Negative Normal Negative [facility] Comment on above: Performed By: #### G IARDIA, STCYRPTOAG #### [facility] , #### ENT BACT PANEL, OVP, CDT #### [facility] [address] [place] [address] Cryptosporidium parv+homin B D MaxOrdered By: Himanshu Borjas on 05-31-2024 C. parvum+hominis DNA DOMONIQUE+probe Ql (Stl) Cryptosporidium parv+homin BD Max Negative [facility] Comment on above: Cryptosporidium test includes C. hominis and C. parvum. Cryptosporidium sp Ag [Prese nce] in Stool by ImmunoassayOrdered By: Himanshu Borjas on 05-31-2024 Cryptosporidium sp Ag IA Ql (Stl) Cryptosporidium sp Ag [Presence] in Stool by Immunoassay Negative [facility] Entamoeba histolytica BD Max Ordered By: Himanshu Borjas on 05-31-2024 E. histolytica DNA DOMONIQUE+probe Ql (Stl) Entamoeba histolytica BD Max Negative [facility] Comment on above: Testing performed by RT-PCR Giardia Lamblia Ag EIA Stool on 05-31-2024 Giardia Lamblia Ag EIA Stool Negative Normal Negative [facility] Comment on above: Result Comment: Perf ormed at: CB - [facility] [place] [id number] [place] [id number] Senior Director Of [employer]: Nehemias Pollard PhD, Phone: [phone] PERFORMED BY: [place] [address] PATHOLOGIST ACTIVATED SLUDGE OPERATOR NAKIA RUBIN M.D. Performed By: #### G IARDIA, STCYRPTOAG #### [facility] , #### ENT BACT PANEL, OVP, CDT #### [facility] [address] [place] [address] Giardia sdihu BD MaxOrdered By : Himanshu Borjas on 05-31-2024 G. lamblia DNA DOMONIQUE+probe Ql (Stl) Giardia sidhu BD Max Negative [facility] Giardia lamblia Ag [Presence ] in Stool by ImmunoassayOrdered By: Himanshu Borjas on 05-31-2024 G. lamblia Ag IA Ql (Stl) Giardia lamblia Ag [Presence] in Stool by Immunoassay Negative [facility] Comment on above: Performed at: CB - [facility] [place] [id number] Director: Nehemias Pollard PhD, Phone: [phone] Ova and Parasite Panelon Cryptosporidium (C.hominis+par Negative Normal Negative [facility] Comment on above: Result Comment: Cryp tosporidium test includes C. hominis and C. parvum. Performed By: #### G IARDIA, STCYRPTOAG #### [facility] , #### ENT BACT PANEL, OVP, CDT #### [address] Entamoeba histolytica Negative Normal Negative [facility] Comment on above: Result Comment: Test ing performed by RT-PCR PERFORMED BY: [place] [address] PATHOLOGIST ACTIVATED SLUDGE OPERATOR NAKIA RUBIN M.D. Performed By: #### G IARDIA, STCYRPTOAG #### [facility] , #### ENT BACT PANEL, OVP, CDT #### [address] Giardia lamblia Negative Normal Negative [facility] Comment on above: Performed By: #### G IARDIA, STCYRPTOAG #### [facility] , #### ENT BACT PANEL, OVP, CDT #### [address] Salmonellosis BD MaxOrdered By: Himanshu Borjas on 05-31-2024 Salmonella sp spaO gene DOMONIQUE+probe Ql (Stl) Salmonella sp spaO gene [Presence] in Stool by DOMONIQUE with probe detection Negative [facility] Comment on above: Testing performed by RT-PCR Shigella Tox 1+2 BD MaxOrder ed By: Himanshu Borjas on 05-31-2024 E. coli stx1+stx2 genes DOMONIQUE+probe Ql (Stl) Escherichia coli Stx1 and Stx2 toxin stx1+stx2 genes [Presence] in Stool by DOMONIQUE with Negative [facility] Shigellosis BD MaxOrdered By : Himanshu Borjas on 05-31-2024 Shigella species+EIEC invasion plasmid antigen H ipaH gene DOMONIQUE+probe Ql (Stl) Shigella species+EIEC invasion plasmid antigen H ipaH gene [Presence] in Stool by DOMONIQUE Negative [facility] Comment on above: Shigella sp. test in cludes Shigella species and Enteroinvasive E. coli (EIEC). Stool Bacterial Panelon 05-11 Campylobacter Negative Normal Negative [facility] Comment on above: Result Comment: Camp ylobacter test includes C. jejuni and C. coli. Performed By: #### G IARDIA, STCYRPTOAG #### [facility] , #### ENT BACT PANEL, OVP, CDT #### [address] Salmonella Species Negative Normal Negative [facility] Comment on above: Result Comment: Test ing performed by RT-PCR PERFORMED BY: [place] [address] PATHOLOGIST ACTIVATED SLUDGE OPERATOR NAKIA RUBIN M.D. Performed By: #### G IARDIA, STCYRPTOAG #### [facility] , #### ENT BACT PANEL, OVP, CDT #### [address] Shiga Toxin (E coli O157+oth) Negative Normal Negative [facility] Comment on above: Performed By: #### G IARDIA, STCYRPTOAG #### [facility] , #### ENT BACT PANEL, OVP, CDT #### [address] Shigella Species Negative Normal Negative [facility] Comment on above: Result Comment: Shig rylie sp. test includes Shigella species and Enteroinvasive E. coli (EIEC). Performed By: #### G IARDIA, STCYRPTOAG #### [facility] , #### ENT BACT PANEL, OVP, CDT #### [address] abdomen pelvis w michael CT abdomen pelvis w [facility] [place] [address] [place] [address] CT Scan Report Signed Patient: Sly Coy MR#: [id number] : 1955 Acct:[id number] Age/Sex: 68 / F ADM Date: 01/16/24 Loc: CT Room: Type: [facility] Attending Dr: Himanshu Borjas APRN Copies [...] Uterus has been removed. No adnexal mass.] Peritoneum/Retroperit oneum:No free air, free fluid or lymphadenopathy.[ Abd wall/Bones:Abdominal wall demonstrates no acute findings. Osseous structures demonstrate degenerative change.[ CT/CT abdomen pelvis w con IMPRESSION: Bilateral nephrolithiasis. No obstructive uropathy. No acute process. Impression dictated by: Dallas Lowe Jr., D.OGiselle01/16/2024 5:44 PM Dictation Location: [place] [address] Transcribed By: [facility] 01/16/241743 Dictated By: Dallas Lowe Jr, DO 01/16/241741 Signed By: 01/16/241743 Normal [facility] Creatinineon 01-16-2024 GFR/1.73 sq M.predicted MDRD (S/P/Bld) [Vol rate/Area] mL/min/{1.73_m2} Normal [facility] Comment on above: Result Comment: PERF ORMED BY: [address] [address] PATHOLOGIST ACTIVATED SLUDGE OPERATOR TONY WONG M.D. Performed By: #### C RESHERRILL, BUN #### [address] [address] [place] Creatinine [Mass/volume] in Serum or PlasmaOrdered By: Himanshu Borjas on 01-16-2024 Creatinine [Mass/Vol] 0.84 mg/dL Normal 0.60-1.20 [facility] Comment on above: Performed By: #### C REAT, BUN #### [facility] [address] [place] [address] No Panel InformationOrdered By: Himanshu Borjas on 01-16-2024 Estimated GFR (CKD-EPI) > 60.0 mL/Min [facility] Creatinine Clearance (Chem N/A [facility] Urea nitrogen [Mass/volume] in Serum or PlasmaOrdered By: Himanshu Borjas on 01-16-2024 Urea nitrogen [Mass/Vol] 15 mg/dL Normal - [facility] Comment on above: Performed By: #### C REAT, BUN #### [facility] [address] [place] [address] [place] esophaguson 11-14-2023 [place] esophagus [facility] [place] [address] [place] [address] Fluoroscopy Report Signed Patient: Sly Coy MR#: [id number] : 1955 Acct:[id number] Age/Sex: 68 / F ADM Date: 11/14/23 Loc: XD Room: Type: [facility] Attending Dr: Himanshu Borjas APRN Copies [...] Arnoldo Souza M.D.11/14/2023 2:00 PM Dictation Location: [place] [address] Transcribed By: [facility] 11/14/23 1400 Dictated By: Arnoldo Souza II, MD 11/14/23 1358 Signed By: 11/14/23 1400 Normal [facility] Basic Metabolic Profon 01-23 Anion gap [Moles/Vol] 10 mmol/L Normal 9-17 [facility] Comment on above: Performed By: #### B GAL, CBC #### [facility] [address] [place] [address] Senior Director Of [employer]: Brooks Almazan MD BUN/CRE Ratio 30 High 9-20 [facility] Comment on above: Performed By: #### B MP, CBC #### [facility] [address] [place] [address] Senior Director Of [employer]: Brooks Almazan MD Calcium [Mass/Vol] 8.9 mg/dL Normal 8.6-10.4 [facility] Comment on above: Performed By: #### B MP, CBC #### [facility] [address] [place] [address] Senior Director Of [employer]: Brooks Almazan MD Chloride [Moles/Vol] 104 mmol/L Normal 98-107 [facility] Comment on above: Performed By: #### B MP, CBC #### [facility] [place] [address] Senior Director Of [employer]: Brooks Almazan MD CO2 [Moles/Vol] 27 mmol/L Normal 20-31 [facility] Comment on above: Performed By: #### B MP, CBC #### [facility] [address] [place] [address] Senior Director Of [employer]: Brooks Almazan MD Creatinine [Mass/Vol] 0.5 mg/dL Normal 0.5-0.9 [facility] Comment on above: Performed By: #### B MP, CBC #### [facility] [address] [place] [address] Senior Director Of [employer]: Brooks Almazan MD GFR/1.73 sq M.predicted among non-blacks MDRD (S/P/Bld) [Vol rate/Area] mL/min/{1.73_m2} Normal >60 [facility] Comment on above: Result Comment: These [...] Performed By: #### B GAL, CBC #### [facility] [address] [place] [address] Senior Director Of [employer]: Brooks Almazan MD Glucose [Mass/Vol] 97 mg/dL Normal 70-99 [facility] Comment on above: Performed By: #### B MP, CBC #### [facility] [address] [place] [address] Senior Director Of [employer]: Brooks Almazan MD Potassium [Moles/Vol] 4.8 mmol/L Normal 3.7-5.3 [facility] Comment on above: Result Comment: SPEC IMEN SLIGHTLY HEMOLYZED, RESULTS MAY BE ADVERSELY AFFECTED. Performed By: #### B MP, CBC #### [facility] [address] [place] [address] Senior Director Of [employer]: Brooks Almazan MD Sodium [Moles/Vol] 141 mmol/L Normal 135-144 [facility] Comment on above: Performed By: #### B MP, CBC #### [facility] [address] [place] [address]. [place] [address] Senior Director Of [employer]: Brooks Almazan MD Urea nitrogen [Mass/Vol] 15 mg/dL Normal 8-23 [facility] Comment on above: Performed By: #### B MP, CBC #### [facility] [address] [place] [address]. [place] [address] Senior Director Of [employer]: Brooks Almazan MD CBCon 01-23-2023 Erythrocyte distribution width (RBC) [Ratio] 12.4 % Normal 11.8-14.4 [facility] Comment on above: Performed By: #### B MP, CBC #### [facility] [address] [place] [address]. [place] [address] Senior Director Of [employer]: Brooks Almazan MD Hematocrit (Bld) [Volume fraction] 40.3 % Normal 36.3-47.1 [facility] Comment on above: Performed By: #### B MP, CBC #### [facility] [address] [place] [address]. [place] [address] Senior Director Of [employer]: Brooks Almazan MD Hemoglobin (Bld) [Mass/Vol] 13.1 g/dL Normal 11.9-15.1 [facility] Comment on above: Performed By: #### B MP, CBC #### [facility] [address] [place] [address]. [place] [address] Senior Director Of [employer]: Brooks Almazan MD MCH (RBC) [Entitic mass] 30.0 pg Normal 25.2-33.5 [facility] Comment on above: Performed By: #### B MP, CBC #### [facility] [address] [place] [address]. [place] [address] Senior Director Of [employer]: Brooks Almazan MD MCHC (RBC) [Mass/Vol] 32.5 g/dL Normal 28.4-34.8 [facility] Comment on above: Performed By: #### B MP, CBC #### [facility] [address] [place] [address] Senior Director Of [employer]: Brooks Almazan MD MCV (RBC) [Entitic vol] 92.4 fL Normal 82.6-102.9 [facility] Comment on above: Performed By: #### B MP, CBC #### [facility] [address] [place] [address] Senior Director Of [employer]: Brooks Almazan MD NRBC Automated 0.0 per 100 WBC Normal 0.0 [facility] Comment on above: Performed By: #### B MP, CBC #### [facility] [address] [place] [address] Senior Director Of [employer]: Brooks Almazan MD Platelet mean volume (Bld) [Entitic vol] 9.3 fL Normal 8.1-13.5 [facility] Comment on above: Performed By: #### B MP, CBC #### [facility] [address] [place] [address] Senior Director Of [employer]: Brooks Almazan MD Platelets (Bld) [#/Vol] 234 10*3/uL Normal 138-453 [facility] Comment on above: Performed By: #### B MP, CBC #### [facility] [address] [place] [address]. [place] [address] Senior Director Of [employer]: Brooks Almazan MD RBC (Bld) [#/Vol] 4.36 10*6/uL Normal 3.95-5.11 [facility] Comment on above: Performed By: #### B MP, CBC #### [facility] [address] [facility] [place] [address] Senior Director Of [employer]: Brooks Almazan MD WBC (Bld) [#/Vol] 7.1 10*3/uL Normal 3.5-11.3 [facility] Comment on above: Performed By: #### B MP, CBC #### [facility] [address] [place] [address] Senior Director Of [employer]: Brooks Almazan MD CBC AUTO DIFFon 11-27-2021 BASO # 0.1 103/ul Normal 0.0-0.1 [facility] Comment on above: Performed By: #### C BC #### [facility] [address] [place] [address] Dr. Liliam Sanderson Basophils/100 WBC (Bld) 0.7 % Normal 0.2-2.0 [facility] Comment on above: Performed By: #### C BC #### [facility] [address] [place] [address] Dr. Liliam Sanderson EO # 0.2 103/ul Normal 0.0-0.7 [facility] Comment on above: Performed By: #### C BC #### [facility] [address] [place] [address] Dr. Liliam Sanderson Eosinophils/100 WBC (Bld) 2.2 % Normal 0.9-7.0 [facility] Comment on above: Performed By: #### C BC #### [facility] [address] [place] [address] Dr. Liliam Sanderson Erythrocyte distribution width (RBC) [Ratio] 12.0 % Normal 11.0-15.0 [facility] Comment on above: Performed By: #### C BC #### [facility] [address] [place] [address] Dr. Liliam Sanderson Hematocrit (Bld) [Volume fraction] 40.6 % Normal 36.0-48.0 [facility] Comment on above: Performed By: #### C BC #### [facility] [address] [place] [address] Dr. Liliam Sanderson Hemoglobin (Bld) [Mass/Vol] 13.3 g/dL Normal 12.0-16.0 [facility] Comment on above: Performed By: #### C BC #### [facility] [address] [place] [address] Dr. Liliam Sanderson IG # 0.03 10e3/ul Normal 0.00-0.03 [facility] Comment on above: Performed By: #### C BC #### [facility] [address] [place] [address] Dr. Liliam Sanderson IG % 0.3 % Normal 0.0-0.5 [facility] Comment on above: Performed By: #### C BC #### [facility] [address] [place] [address] Dr. Liliam Sanderson LYMPH # 3.2 103/ul Normal 1.2-3.8 [facility] Comment on above: Performed By: #### C BC #### [facility] [address] [place] [address] Dr. Liliam Sanderson Lymphocytes/100 WBC (Bld) 30.7 % Normal 20.5-60.0 [facility] Comment on above: Performed By: #### C BC #### [facility] [address] [place] [address] Dr. Liliam Sanderson MANUAL DIFF REQ NO Normal [facility] Comment on above: Performed By: #### C BC #### [facility] [address] [place] [address] Dr. Liliam Sanderson MCH (RBC) [Entitic mass] 30.2 pg Normal 26.7-34.0 [facility] Comment on above: Performed By: #### C BC #### [facility] [address] [place] [address] Dr. Liliam Sanderson MCHC (RBC) [Mass/Vol] 32.8 g/dL Normal 29.9-35.2 [facility] Comment on above: Performed By: #### C BC #### [facility] [address] [place] [address] Dr. Liliam Sanderson MCV (RBC) [Entitic vol] 92.1 fL Normal 81.0-99.0 [facility] Comment on above: Performed By: #### C BC #### [facility] [address] [place] [address] Dr. Liliam Sanderson MONO # 0.8 103/ul Normal 0.3-0.8 [facility] Comment on above: Performed By: #### C BC #### [facility] [address] [place] [address] Dr. Liliam Sanderson Monocytes/100 WBC (Bld) 7.5 % Normal 1.7-12.0 [facility] Comment on above: Performed By: #### C BC #### [facility] [address] [place] [address] Dr. Liliam Sanderson NEUT # 6.1 103/ul Normal 1.4-6.5 [facility] Comment on above: Performed By: #### C BC #### [facility] [address] [place] [address] Dr. Liliam Sanderson Neutrophils/100 WBC (Bld) 58.6 % Normal 43.0-75.0 [facility] Comment on above: Performed By: #### C BC #### [facility] [address] [place] [address] Dr. Liliam Sanderson Platelet mean volume (Bld) [Entitic vol] 8.8 fL Critically low 9.5-13.5 [facility] Comment on above: Performed By: #### C BC #### [facility] [address] [place] [address] Dr. Liliam Sanderson PLT 264 103/ul Normal 150-450 [facility] Comment on above: Performed By: #### C BC #### [facility] [address] [place] [address] Dr. Liliam Sanderson RBC 4.41 106/ul Normal 4.20-5.40 [facility] [place] [facility] Comment on above: Performed By: #### C BC #### [facility] [address] [place] [address] [address] Liliam Sanderson WBC 10.4 103/ul Normal 4.0-11.0 [facility] Comment on above: Performed By: #### C BC #### [facility] [address] [place] [address] Dr. Liliam Sanderson LIPID PROFILEon 11-27-2021 CHOL-HDL RATIO NORM SEE BELOW Normal [facility] Comment on above: Result Comment: 3.3 - 4.4 LOW RISK 4.4 - 7.1 AVERAGE RISK 7.1 - 11.0 MODERATE RISK >11.0 HIGH RISK Performed By: #### C MP, LIPID #### [facility] [address] [place] [address] Dr. Liliam Sanderson Cholesterol [Mass/Vol] 204 mg/dL Critically high <=200 [facility] Comment on above: Performed By: #### C MP, LIPID #### [facility] [address] [place] [address] Dr. Liliam Sanderson Cholesterol in HDL [Mass/Vol] 46 mg/dL Normal 40-60 [facility] Comment on above: Performed By: #### C MP, LIPID #### [facility] [address] [place] [address] Dr. Liliam Sanderson Cholesterol in LDL [Mass/Vol] 125.4 mg/dL Normal [facility] Comment on above: Performed By: #### C MP, LIPID #### [facility] [address] [place] [address] Dr. Liliam Sanderson Cholesterol.total/Chol esterol in HDL [Mass ratio] 4.4 {ratio} Normal [facility] Comment on above: Performed By: #### C MP, LIPID #### [facility] [address] [place] [address] Dr. Liliam Sanderson HDL NORMAL > or = 60 mg/dl - LO W CARDIOVASCULAR RISK <40 mg/dl - HIGH CARDIOVASCULAR RISK Normal [facility] Comment on above: Performed By: #### C MP, LIPID #### [facility] [address] [address] [address] Liliam Sanderson LDL CALC NORMAL SEE BELOW Normal [facility] Comment on above: Result Comment: <100 mg/dl OPTIMAL 100 - 129 mg/dl NEAR OR ABOVE OPTIMAL 130 - 159 mg/dl BORDERLINE HIGH 160 - 189 mg/dl HIGH >190 mg/dl VERY HIGH Performed By: #### C MP, LIPID #### [facility] [address] [address] [address] Liliam Sanderson Triglyceride [Mass/Vol] 163 mg/dL Critically high <=150 [facility] Comment on above: Performed By: #### C MP, LIPID #### [facility] [address] [address] [address] Liliam Sanderson VLDL CALC 32.6 mg/dL Normal [facility] Comment on above: Performed By: #### C MP, LIPID #### [facility] [address] [place] [address] Dr. Liliam Sanderson PROF 14(COMP METB)on 022 Albumin [Mass/Vol] 4.1 g/dL Normal 3.4-5.0 [facility] Comment on above: Performed By: #### C MP, LIPID #### [facility] [address] [address] [address] Liliam Sanderson Albumin/Globulin [Mass ratio] 1.2 {ratio} Normal [facility] Comment on above: Performed By: #### C MP, LIPID #### [facility] [address] [address] [address] Liliam Sanderson ALP [Catalytic activity/Vol] 61 U/L Normal 46-116 [facility] Comment on above: Performed By: #### C MP, LIPID #### [facility] [address] [address] [address] Liliam Sanderson ALT [Catalytic activity/Vol] 20 U/L Normal 14-59 [facility] Comment on above: Performed By: #### C MP, LIPID #### [facility] [address] [address] [address] Liliam Sanderson Anion gap [Moles/Vol] 11.4 mmol/L Normal [facility] Comment on above: Performed By: #### C MP, LIPID #### [facility] [address] [address] [address] Liliam Sanderson AST [Catalytic activity/Vol] 12 U/L Critically low 15-37 [facility] Comment on above: Performed By: #### C MP, LIPID #### [facility] [address] [address] [address] Liliam Sanderson Bilirubin [Mass/Vol] 0.5 mg/dL Normal 0.2-1.0 [facility] Comment on above: Performed By: #### C MP, LIPID #### [facility] [address] [address] [address] Liliam Sanderson Calcium [Mass/Vol] 8.9 mg/dL Normal 8.5-10.1 [facility] Comment on above: Performed By: #### C MP, LIPID #### [facility] [address] [address] [address] Liliam Sanderson Chloride [Moles/Vol] 102 mmol/L Normal 98-107 [facility] Comment on above: Performed By: #### C MP, LIPID #### [facility] [address] [address] [address] Liliam Sanderson CO2 [Moles/Vol] 28.3 mmol/L Normal 21.0-32.0 [facility] Comment on above: Performed By: #### C MP, LIPID #### [facility] [address] [address] [address] Lilima Sanderson Creatinine [Mass/Vol] 0.66 mg/dL Normal 0.55-1.02 [facility] Comment on above: Performed By: #### C MP, LIPID #### [facility] [address] [place] [address] Dr. Liliam Sanderson EGFR-AF CZECH >60 Normal >=60 [facility] Comment on above: Performed By: #### C MP, LIPID #### [facility] [address] [place] [address] Dr. Liliam Sanderson EGFR-NON AF CZECH >60 Normal >=60 [facility] Comment on above: Performed By: #### C MP, LIPID #### [facility] [address] [address] [address] Liliam Sanderson Globulin (S) [Mass/Vol] 3.4 g/dL Normal [facility] Comment on above: Performed By: #### C MP, LIPID #### [facility] [address] [address] [address] Liliam Sanderson Glucose [Mass/Vol] 100 mg/dL Normal 74-106 [facility] Comment on above: Performed By: #### C MP, LIPID #### [facility] [address] [address] [address] Liliam Sanderson Potassium [Moles/Vol] 3.7 mmol/L Normal 3.5-5.1 [facility] Comment on above: Performed By: #### C MP, LIPID #### [facility] [address] [place] [address] Dr. Liliam Sanderson Protein [Mass/Vol] 7.5 g/dL Normal 6.4-8.2 [facility] Comment on above: Performed By: #### C MP, LIPID #### [facility] [address] [address] [address] Liliam Sanderson Sodium [Moles/Vol] 138 mmol/L Normal 136-145 [facility] Comment on above: Performed By: #### C MP, LIPID #### [facility] [address] [address] [address] Liliam Sanderson Urea nitrogen [Mass/Vol] 14.0 mg/dL Normal 7.0-18.0 [facility] Comment on above: Performed By: #### C MP, LIPID #### [facility] [address] [address] [address] Liliam Sanderson Urea nitrogen/Creatinine [Mass ratio] 21.2 mg/mg Normal [facility] Comment on above: Performed By: #### C MP, LIPID #### [facility] [address] [place] [address] Dr. Liliam Sanderson Vital Signs Date Time Vital Sign Value Performing Clinician Facility 12-31-2024 12:40-0400 Body height 154.9 cm Lory LALA Work Phone: [employer] 12-31-2024 12:40-0400 Body mass index (BMI) [Ratio] 22.86 kg/m2 Lory LALA Work Phone: [employer] 12-31-2024 12:40-0400 Body weight 54.88 kg Lory LALA Work Phone: [employer] 12-31-2024 12:40-0400 Diastolic blood pressure 66 mm[Hg] Lory LALA Work Phone: [employer] 12-31-2024 12:40-0400 Heart rate 92 /min Lory LALA Work Phone: [facility] [employer] 12-31-2024 12:40-0400 SaO2% (BldA) [Mass fraction] 98 % Lory LALA Work Phone: [facility] [employer] [facility] 12-31-2024 12:40-0400 Systolic blood pressure 116 mm[Hg] Lory LALA Work Phone: [facility] [employer] [facility] 09-10-2024 15:01-0500 Body height 152.4 cm [facility] 09-10-2024 15:01-0500 Body mass index (BMI) [Ratio] 23.2 kg/m2 [facility] 09-10-2024 15:01-0500 Body weight 53.9 kg [facility] 08-27-2024 13:52-0500 Blood Pressure Location JASMIN NKANSAH-AMANKRA [facility] 08-27-2024 13:52-0500 Diastolic blood pressure 78 mm[Hg] JASMIN NKANSAH-AMANKRA [facility] 08-27-2024 13:52-0500 Heart rate 66 /min JASMIN NKANSAH-AMANKRA [facility] 08-27-2024 13:52-0500 Systolic blood pressure 140 mm[Hg] JASMIN THONY [facility] 08-05-2024 11:05-0500 Body mass index (BMI) [Ratio] 22.3 kg/m2 Micaela Monroy MD Work Phone: [facility] 08-05-2024 11:05-0500 Body temperature 97 [degF] Micaela Monroy MD Work Phone: [facility] 08-05-2024 11:05-0500 Body weight 53.52 kg Micaela Monroy MD Work Phone: [facility] 08-05-2024 11:05-0500 Diastolic blood pressure 45 mm[Hg] Micaela Monroy MD Work Phone: [facility] 08-05-2024 11:05-0500 Heart rate 56 /min Micaela Monroy MD Work Phone: [facility] 08-05-2024 11:05-0500 SaO2% (BldA) [Mass fraction] 98 % Micaela Monroy MD Work Phone: [facility] 08-05-2024 11:05-0500 Systolic blood pressure 108 mm[Hg] Micaela Mornoy MD Work Phone: [facility] 07-30-2024 15:32-0500 Body height 152.4 cm [facility] 07-30-2024 15:32-0500 Body mass index (BMI) [Ratio] 23.2 kg/m2 [facility] 07-30-2024 15:32-0500 Body weight 53.97 kg [facility] 07-30-2024 15:32-0500 Diastolic blood pressure 76 mm[Hg] [facility] 07-30-2024 15:32-0500 Heart rate 68 /min [facility] 07-30-2024 15:32-0500 Systolic blood pressure 132 mm[Hg] [facility] 07-24-2024 08:55-0500 Blood Pressure Location Elizabeth Lue [facility] 07-24-2024 08:55-0500 Diastolic blood pressure 68 mm[Hg] Elizabeth Lue [facility] 07-24-2024 08:55-0500 Heart rate 68 /min Elizabeth Lue [facility] 07-24-2024 08:55-0500 Systolic blood pressure 112 mm[Hg] Elizabeth Lue [facility] 07-01-2024 11:39-0500 Body height 154.9 cm Joey Andrea MD Work Phone: [facility] 07-01-2024 11:39-0500 Body mass index (BMI) [Ratio] 22.98 kg/m2 Joey Andrea MD Work Phone: [facility] 07-01-2024 11:39-0500 Body weight 55.16 kg Joey Andrea MD Work Phone: [facility] 07-01-2024 11:39-0500 Diastolic blood pressure 72 mm[Hg] Joey Andrea MD Work Phone: [facility] 07-01-2024 11:39-0500 Heart rate 60 /min Joey Andrea MD Work Phone: [facility] 07-01-2024 11:39-0500 SaO2% (BldA) [Mass fraction] 100 % Joey Andrea MD Work Phone: [facility] 07-01-2024 11:39-0500 Systolic blood pressure 140 mm[Hg] Joey Andrea MD Work Phone: [facility] 05-30-2024 09:26-0500 Body height 152.4 cm [facility] 05-30-2024 09:26-0500 Body mass index (BMI) [Ratio] 24 kg/m2 [facility] 05-30-2024 09:26-0500 Body weight 55.96 kg [facility] 05-30-2024 09:26-0500 Diastolic blood pressure 68 mm[Hg] [facility] 05-30-2024 09:26-0500 Heart rate 75 /min [facility] 05-30-2024 09:26-0500 Systolic blood pressure 122 mm[Hg] [facility] 03-05-2024 15:04-0400 Body height 152.4 cm WEEKEND RECEPTIONISTKhushi Subramanian Work Phone: [facility] 03-05-2024 15:04-0400 Body mass index (BMI) [Ratio] 24.4 kg/m2 WEEKEND RECEPTIONISTKhuhsi Hernandezlim Work Phone: [facility] 03-05-2024 15:04-0400 Body weight 56.69 kg WEEKEND RECEPTIONISTKhushi Hernandezlim Work Phone: [facility] 01-02-2024 14:02-0400 Body height 152.4 cm WEEKEND RECEPTIONISTKhushi Hernandezlim Work Phone: [facility] 01-02-2024 14:02-0400 Body mass index (BMI) [Ratio] 25.4 kg/m2 WEEKEND RECEPTIONISTKhushi Parker Anglim Work Phone: [facility] 01-02-2024 14:02-0400 Body weight 59 kg WEEKEND RECEPTIONISTKhushi Jewella Anglim Work Phone: [facility] 10-26-2023 11:18-0400 Body height 153.67 cm [facility] 10-26-2023 11:18-0400 Body mass index (BMI) [Ratio] 25 kg/m2 [facility] 10-26-2023 11:18-0400 Body weight 58.96 kg [facility] 05-10-2023 09:48-0400 Blood Pressure Location Elizabeth Lue [facility] 05-10-2023 09:48-0400 Diastolic blood pressure 67 mm[Hg] Elizabeth Lue [facility] 05-10-2023 09:48-0400 Heart rate 73 /min Elizabeth Lue [facility] 05-10-2023 09:48-0400 Respiratory rate 16 /min Elizabeth Lue [facility] 05-10-2023 09:48-0400 Systolic blood pressure 101 mm[Hg] Elizabeth Lue [facility] 02-14-2023 14:00-0400 Body height 153.67 cm Himanshu Borjas Other [employer] [facility] [employer] Other 02-14-2023 14:00-0400 Body mass index (BMI) [Ratio] 24.78 kg/m2 Himanshu Borjas Other [employer] Other 02-14-2023 14:00-0400 Body weight 58.51 kg Himanshu Borjas Other [employer] Other 02-14-2023 14:00-0400 Diastolic blood pressure 84 mm[Hg] Himanshu Borjas Other [employer] Other 02-14-2023 14:00-0400 Systolic blood pressure 142 mm[Hg] Himanshu Scovangurpreet Other [employer] Other 11-15-2022 16:30-0400 Body height 153.67 cm Himanshu Borjas Other [employer] Other 11-15-2022 16:30-0400 Body mass index (BMI) [Ratio] 26.27 kg/m2 Himanshu Borjas Other [employer] Other 11-15-2022 16:30-0400 Body weight 62.05 kg Himanshu Borjas Other [employer] Other 11-15-2022 16:30-0400 Diastolic blood pressure 76 mm[Hg] Himanshu Borjas Other [employer] Other 11-15-2022 16:30-0400 Systolic blood pressure 128 mm[Hg] Himanshu Borjas Other [employer] Other Encounters Encounter Date Encounter Type Care Provider Facility Start: 04-28-2025 ambulatory [facility] Facility :[facility] Start: 01-27-2025 End: 01-27-2025 ambulatory [facility] Facility:[facility] Start: 01-27-2025 End: 01-27-2025 Patient encounter procedure JASMINYASMINE MCNAMARAAH-AMANKRA [facility] Start: 01-07-2025 End: 01-08-2025 ambulatory JASMIN NKANSAH-AMANKRA Facility[facility] Start: 01-07-2025 End: 01-08-2025 Patient encounter procedure JASMIN ANDERSAH-AMANKRA [facility] Start: 12-31-2024 End: 12-31-2024 Office outpatient visit 15 minutes [facility]ory LALA [facility] Comment on above: Hx of right coronary artery stent placement (Primary Dx); Coronary artery disease of [place] artery of [place] heart with stable angina pectoris; Hypertensive heart disease without heart failure; Presence of drug-eluting stent in right coronary artery; Mixed hyperlipidemia Start: 12-31-2024 End: 12-31-2024 ambulatory LORY Velazquez [facility] Start: 12-23-2024 End: 12-23-2024 ambulatory JASMIN BESS-AMJUSTIN Facility:[facility] Start: 12-23-2024 End: 12-23-2024 Patient encounter procedure JASMIN MARIA ALEJANDRA-KADEEMRA [facility] Start: 12-16-2024 End: 12-16-2024 [facility] Start: 12-16-2024 End: 12-16-2024 Patient encounter procedure JASMIN BESS-KIMBERLY [facility] Start: 11-05-2024 End: 11-05-2024 [facility] Start: 10-02-2024 End: 10-02-2024 ambulatory Elizabeth Lott Facility:[id number] Start: 09-20-2024 End: 09-20-2024 ambulatory Elizabeth Lott [facility] Work Phone: Start: 09-20-2024 End: 09-20-2024 Departed Referred Elizabeth Lott MD Work Phone: [facility] [place] [facility] Start: 09-10-2024 End: 09-10-2024 ambulatory [facility] Work Phone: Start: 09-10-2024 End: 09-10-2024 Patient encounter procedure [facility] Work Phone: Start: 08-27-2024 End: 08-27-2024 ambulatory JASMIN NKANSAH-AMANKRA Facility:[facility] Start: 08-27-2024 End: 08-27-2024 Patient encounter procedure JASMIN MILLS [facility] Start: 08-13-2024 End: 08-13-2024 ambulatory JASMIN MILLS Facility:[facility] Start: 08-13-2024 End: 08-13-2024 Patient encounter procedure JASMIN MILLS [facility] Start: 08-07-2024 End: 08-07-2024 Telephone encounter Concepción Murphy RN [facility] Comment on above: Surgical Or Dental C learance Start: 08-05-2024 End: 08-05-2024 ambulatory FERNANDO GANJose Guadalupe Facility:[facility] Start: 08-05-2024 End: 08-05-2024 Patient encounter procedure Micaela Monroy MD Work Phone: General Surgery Comment on above: Hiatal hernia (Prima ry Dx) Start: 07-30-2024 End: 07-30-2024 ambulatory NON STAFF [facility] Work Phone: Start: 07-30-2024 End: 07-30-2024 Patient encounter procedure [facility] Work Phone: Start: 07-24-2024 ambulatory Elizabeth Lott Facility:C [id number] Start: 07-24-2024 End: 07-24-2024 ambulatory Elizabeth Lubin. Oren Facility:[facility] Start: 07-24-2024 End: 07-24-2024 Patient encounter procedure Elizabeth Lott [facility] Start: 07-01-2024 End: 07-01-2024 Office outpatient visit 25 minutes Joey Andrea MD Work Phone: [facility] Comment on above: Hx of right coronary artery stent placement (Primary Dx); Primary hypertension; Hyperlipidemia, unspecified hyperlipidemia type; Smoker Start: 07-01-2024 End: 07-01-2024 ambulatory JOEY ANDREA [facility] Start: 06-28-2024 End: 06-28-2024 Telephone encounter [facility] Start: 05-31-2024 End: 05-31-2024 Telephone encounter Micaela Monroy MD Work Phone: Colorectal Surgery Start: 05-31-2024 End: 05-31-2024 Patient encounter procedure [facility] [place] Work Phone: Start: 05-31-2024 End: 05-31-2024 ambulatory Himanshu Borjas Facility:[facility] Start: 05-30-2024 End: 05-30-2024 ambulatory [facility] Work Phone: Start: 05-30-2024 End: 05-30-2024 Patient encounter procedure [facility] Work Phone: Start: 03-05-2024 End: 03-05-2024 ambulatory RISA Subramanian Work Phone: [facility] Work Phone: Start: 03-05-2024 End: 03-05-2024 Patient encounter procedure WEEKEND RECEPTIONISTKhushi Subramanian Work Phone: [facility] Work Phone: Start: 02-01-2024 End: 02-01-2024 Refill Los Lee MD Work Phone: [facility] Comment on above: Med Refill Start: 01-30-2024 End: 01-30-2024 ambulatory [place] J Galea Facility:[facility] Start: 01-30-2024 End: 01-30-2024 Patient encounter procedure [place] J Galea [facility] Start: 01-24-2024 End: 01-24-2024 ambulatory Elizabeth LubinGiselle Oren Facility: [facility] Start: 01-24-2024 End: 01-24-2024 Patient encounter procedure Elizabeth LubinGiselle Townsendhina [facility] [place] Start: 01-16-2024 End: 01-16-2024 Patient encounter procedure WEEKEND RECEPTIONIST Nadira Subramanian Work Phone: [facility]-CT Scan [facility] [place] Work Phone: Start: 01-16-2024 End: 01-16-2024 ambulatory WEEKEND RECEPTIONIST Nadira Subramanian Work Phone: [facility] Work Phone: Start: 01-02-2024 End: 01-02-2024 ambulatory WEEKEND RECEPTIONIST Nadira Subramanian Work Phone: [facility] Work Phone: Start: 01-02-2024 End: 01-02-2024 Patient encounter procedure RISA Nadira Subramanian Work Phone: [facility] Work Phone: Start: 11-14-2023 End: 11-14-2023 Patient encounter procedure WEEKEND RECEPTIONIST Nadira Marilynn Work Phone: [facility]XRay [facility] [place] Work Phone: Start: 11-14-2023 End: 11-14-2023 ambulatory WEEKEND RECEPTIONIST Nadira Subramanian Work Phone: [facility] Work Phone: Start: 10-26-2023 End: 10-26-2023 ambulatory [facility] Work Phone: Start: 10-26-2023 End: 10-26-2023 Patient encounter procedure [facility] Work Phone: Start: 07-24-2023 End: 07-24-2023 Patient encounter procedure Elizabeth Lott [facility] Start: 07-05-2023 Refill Juan David sser WEEKEND RECEPTIONIST-[employer]OTTLED BEVERAGE INSPECTOR Work Phone: [facility] Comment on above: Med Refill Start: 05-10-2023 End: 05-10-2023 Patient encounter procedure Elizabeth Lott [facility] Start: 02-14-2023 End: 02-14-2023 ambulatory Himanshu Borjas Other [employer] Other Start: 02-14-2023 Office outpatient vi sit 15 minutes Himanshu Borjas [facility] Start: 01-23-2023 End: 01-23-2023 ambulatory LOS LEE [facility] Start: 11-15-2022 End: 11-15-2022 ambulatory Himanshu Borjas Other [employer] Other Start: 11-15-2022 Office outpatient ne w 30 minutes Himanshu Borjas [facility] Start: 09-30-2022 End: 09-30-2022 ambulatory [facility] Facility: Start: 06-21-2022 End: 06-24-2022 ambulatory CHANEL [facility] Start: 06-21-2022 End: 06-23-2022 Subsequent hospital visit by physician [facility] Nurse [address] [facility] [address] Scan Comment on above: Chest pain, unspecif ied type; Dizziness; Abnormal stress ECG Start: 11-27-2021 End: 11-28-2021 ambulatory [facility] Facility:H1 Procedures Date Procedure Procedure Detail Performing Clinician Start: 01-07-2025 Sacrocolpopexy JASMIN MILLS Start: 12-31-2024 Ecg routine ecg w/le ast 12 lds w/i&r Lory LALA Work Phone: Start: 10-02-2024 Extracorporeal shock wave lithotripsy JASMIN MILLS Start: 07-01-2024 Ecg routine ecg w/le ast 12 lds w/i&r Joey Andrea MD Work Phone: Start: 07-01-2024 Follow-up visit Follow-up SHOBHA ANDREA Start: 01-16-2024 Computed tomography of abdomen and pelvis with contrast RISA Subramanian Work Phone: Start: 07-24-2023 Removal of ureteral stent Albaniayifan Toney Start: 07-12-2023 Ureteroscopy Elizabeth Lue Start: 05-24-2023 Extracorporeal shock wave lithotripsy of calculus of kidney Elizabeth Lue Start: 01-07-2023 Stented artery (finding) Elizabeth Lue Start: 07-10-2018 Hysterectomy JASMIN MILLS Comment on above: *still has ovaries Start: [...] care Elizabeth Lott Comment on above: sling Endometrial ablation JASMIN MILLS History of percutane ous transluminal coronary angioplasty JASMIN MILLS History of placement of stent for coronary artery disease Hx of right coronary artery stent placement Joey Andrea MD Work Phone: History of placement of stent for coronary artery disease Hx of right coronary artery stent placement Lory LALA Work Phone: Plan of Treatment Date Care Activity Detail Author Start: 09-30-2032 DTaP,Tdap and Td Vac cines (2 - Td or Tdap) DTaP,Tdap and Td Vaccines (2 - Td or Tdap) [facility] Start: 2030 RSV Vaccine (1 - 1-d ose 75+ series) RSV Vaccine (1 - 1-dose 75+ series) [facility] Start: 01-23-2026 Diabetes Screening Diabetes Screenin g [facility] Start: 12-31-2025 Adult BMI Screening Adult BMI Screen ing [facility] Start: 12-31-2025 Tobacco Screening Tobacco Screening [facility] Start: 07-01-2025 Adult BMI Screening Adult BMI Screen ing [facility] Start: 07-01-2025 Tobacco Screening Tobacco Screening [facility] Start: 03-10-2025 Influenza vaccination Influenza Vacc ine [facility] Start: 12-07-2024 Screening for malign ant neoplasm of breast Mammogram Screening [facility] Start: 09-20-2024 [address] [facility] Start: 09-20-2024 Bacteria identified in Urine by Culture Urine Culture [facility] Start: 07-10-2024 Advance Directive Discussion Advance Directive Discussion [facility] Start: 07-01-2024 End: 07-01-2024 Patient encounter procedure 07/01/2024 12:00 PM EST Office Visit [facility] [address] [place] [id number] Joey Andrea MD [address] [place] [address] [facility] Start: 06-19-2024 Adult BMI Screening Adult BMI Screen ing [facility] Start: 06-19-2024 Tobacco Screening Tobacco Screening [facility] Start: 05-30-2024 Patient referral [facility] Work Phone: Start: 03-10-2024 Covid-19 Vaccine ( season) Covid-19 Vaccine () [facility] Start: 03-10-2024 COVID-19 Vaccine () COVID-19 Vaccine () [facility] Start: 03-10-2024 Influenza vaccination C [facility] Start: 01-02-2024 Patient referral [facility] Work Phone: Start: 08-17-2023 Tobacco Counseling Tobacco Counselin g [facility] Start: 07-10-2023 Advance Directive Discussion Advance Directive Discussion [facility] Start: 03-10-2023 Influenza vaccination Influenza Vacc ine [facility] Start: 06-15-2022 Annual Wellness Visi t (AWV) [facility]) [facility] Start: 02-07-2022 Influenza vaccination Flu vaccine (# 1) [facility] Start: 11-09-2021 Diabetes Screening Diabetes Screenin g [facility] Start: 2020 Fall Risk Screening Fall Risk Screen ing [facility] Start: 2020 Pneumococcal 65+ yea rs Vaccine (1 - PCV) Pneumococcal 65+ years Vaccine (1 - PCV) [facility] Start: 2020 Pneumococcal Vaccine : 65+ (1 of 1 - PCV) Pneumococcal Vaccine: 65+ (1 of 1 - PCV) [facility] Start: 2020 Screening for osteoporosis Bone Density Screening [facility] Start: 2010 Screening for osteoporosis DEXA (modify frequency per FRAX score) [facility] Start: 2005 Administration of varicella zoster vaccine Zoster (Shingles) Vaccine (1 of 2) [facility] Start: 2005 Pneumococcal Vaccine : 50+ (1 of 1 - PCV) Pneumococcal Vaccine: 50+ (1 of 1 - PCV) [facility] Start: 2005 Screening for malign ant neoplasm of breast Breast cancer screen [facility] Start: 2005 Shingles vaccine (1 of 2) Hinojosa gles vaccine (1 of 2) [facility] Start: 2005 Shingrix Vaccine (1 of 2) Hinojosa grix Vaccine (1 of 2) [facility] Start: 2000 Lipid panel Lipid Screening [facility] Start: 2000 Screening for malign ant neoplasm of colon [facility] Start: 1995 Lipid panel Lipids [facility] Start: 1995 Screening for malign ant neoplasm of breast Mammogram Screening [facility] Start: 1974 DTaP,Tdap and Td Vac cines (1 - Tdap) DTaP,Tdap and Td Vaccines (1 - Tdap) [facility] Start: 1974 DTaP/Tdap/Td vaccine (1 - Tdap) DTaP/Tdap/Td vaccine (1 - Tdap) [facility] Start: 1974 Urine microalbumin profile DTaP,Tdap,Td Vaccine (1 - Tdap) [facility] Start: 1973 Anxiety Screening Anxiety Screening [facility] Start: 1973 Depression Screening Depression Scre ing [facility] Start: 1973 Hepatitis C screening B ON [facility] Start: 1967 Depression Screen Depression Screen [facility] Start: 1967 Depression Screening Depression Scre ing [facility] Start: 03-06-1956 COVID-19 Vaccine (#1) COVID-19 Vacci ne (#1) [facility] Start: 1955 Medicare Annual Well ness Visit Medicare Annual Wellness Visit [facility] Start: 1955 Tobacco Counseling Tobacco Counselin osiris [facility] End: 01-31-2025 CBC panel - Blood by Automated count CBC Lab Routine Medication management 1 Occurrences starting 02/01/2024 until 01/31/2025 [facility] Work Phone: Comment on above: 1 Occurrences starti ng 02/01/2024 until 01/31/2025 Cryptosporidium sp A g [Presence] in Stool by Immunoassay [facility] CT Abdomen and Pelvi s W contrast IV [facility] End: 06-21-2022 CTA CORON EJECT FRAC WALL MOTION CTA CORON EJECT FRAC WALL MOTION Imaging Routine Chest pain, unspecified type Dizziness Abnormal stress ECG 1 Occurrences starting 06/21/2022 until 06/21/2022 [facility] [employer] [facility] Work Phone: Comment on above: 1 Occurrences starti ng 06/21/2022 until 06/21/2022 Fluoroscopy of esophagus [facility] Giardia lamblia Ag [Presence] in Stool by Immunoassay [facility] End: 07-01-2025 Lipid 1996 panel - Serum or Plasma Lipid profile Lab Routine Primary hypertension 1 Occurrences starting 07/01/2024 until 07/01/2025 [facility] Work Phone: Comment on above: 1 Occurrences starti ng 07/01/2024 until 07/01/2025 End: 12-31-2025 Lipid panel Lipid panel Lab Routine Hx of right coronary artery stent placement Coronary artery disease of [place] artery of [place] heart with stable angina pectoris Presence of drug-eluting stent in right coronary artery Mixed hyperlipidemia 1 Occurrences starting 12/31/2024 until 12/31/2025 [facility] Work Phone: Comment on above: 1 Occurrences starti ng 12/31/2024 until 12/31/2025 Patient referral [facility] Work Phone: [facility] Immunizations Immunization Date Immunization Notes Care Provider Fa gavino 09-30-2022 tetanus toxoid, redu yonathan diphtheria toxoid, and acellular pertussis vaccine, adsorbed JASMIN NKANSAH-AMANKRA [facility] 03-12-2021 SARS-CoV-2 (COVID-19 ) mRNA BNT-162b2 vax JASMIN NKANSAH-AMANKRA [facility] Comment on above: Result Comment: 2024: [id number] 02-19-2021 SARS-CoV-2 (COVID-19 ) mRNA BNT-162b2 vax JASMIN MILLS [facility] Comment on above: Result Comment: 2024: [id number] Payers Date Payer Category Payer Self-pay 2021 Medicare [id number] 2021 Medicare O [facility] MEDICARE [id number] 1959 Medicare [id number] .[id number] 1955 Unknown [id number] 2.16.840.1.729708.3.579.2.176 1955 Unknown [id number] 2.16.840.1.145745.3.579.2.593 1955 Unknown [id number] 2.16.840.1.149651.3.579.2.593 1955 Unknown [id number] 2.16.840.1.534502.3.579.2.177 1955 Unknown [id number] 2.16.840.1.531875.3.579.2.727 1955 Unknown [id number] 2.16.840.1.699613.3.579.2.727 1955 Unknown [id number] 2.16.840.1.231410.3.579.2.727 1955 Unknown [id number] 2.16.840.1.597212.3.579.2.727 1955 Unknown [id number] 2.16.840.1.357017.3.579.2.727 1955 Unknown [id number] 2.16.840.1.601355.3.579.2.727 1955 Unknown [id number] 2.16.840.1.908273.3.579.2.727 1955 Unknown [id number] 2.16.840.1.026883.3.579.2.727 1955 Unknown [id number] 2.16.840.1.470657.3.579.2.727 1955 Unknown [id number] 2.16.840.1.075873.3.579.2.128 6 1955 Unknown [id number] 2.16.840.1.747415.3.579.2.128 6 1955 Unknown [id number] 2.16.840.1.186177.3.579.2.727 1955 Unknown [id number] 2.16.840.1.650629.3.579.2.727 1955 Unknown [id number] 2.16.840.1.908465.3.579.2.727 1955 Unknown [id number] 2.16.840.1.044367.3.579.2.727 Medicare Medicare [id number] Unknown HCAP/HFA/FAP Active [id number] Unknown [id number] 2.16.840.1.327329.3.579.2.531 Unknown [id number] 2.16.840.1.962280.3.579.2.531 Unknown [id number] 2.16.840.1.930962.3.579.2.531 Unknown [id number] 2.16.840.1.024261.3.579.2.531 Social History Date Type Detail Facility Tobacco smoking stat [facility] Tobacco smoking consumption unknown [facility] Phone: Start: 1955 Sex Assigned At Not on file [facility] Phone: Start: 08-19-2020 End: 12-08-2023 Sex Assigned At [facility] Start: 05-10-2023 End: 01-27-2025 Tobacco smoking status Light tobacco smoker (finding) [facility] Start: 12-20-2022 End: 07-30-2024 Tobacco smoking status NHIS Smoker (finding) [facility] Start: 1955 Sex Assigned At Female F [facility] Start: 10-21-2009 End: 05-30-2024 Sex Female (finding) [facility] Start: 10-03-2014 End: 08-05-2024 Tobacco smoking status NHIS Ex-smoker [facility] Start: 12-20-1975 End: 12-19-2012 History of tobacco use Cigarette Smoker [facility] Start: 10-03-2014 End: 08-19-2020 Cigarettes smoked current (pack per day) - Reported 0.5 [facility] Start: 10-03-2014 End: 12-31-2024 Tobacco use and exposure Smokeless tobacco non-user [facility] Start: 10-21-2014 End: 08-05-2024 Alcoholic beverage intake Current non-drinker of alcohol (finding) [facility] Start: 04-27-2022 End: 12-31-2024 Tobacco smoking status NHIS Smokes tobacco daily [facility] Start: 12-08-2023 End: 12-31-2024 Alcoholic beverage intake Ex-drinker (finding) [facility] Childcare Unknown [facility] Start: 04-27-2022 Tobacco Comment has been decre asing daily [facility] Start: 05-06-2022 Alcohol Comment social--[facility] Sexual Orientation [facility] Functional Status Date Assessment Result Facility 08-27-2024 Functional Status N/A [facility] 07-24-2024 Functional Status N/A [facility] 05-10-2023 Functional Status N/A [facility] Clinical Notes 11-15-2022 to 01-27-2025 Note Date & Type Note Facility 01-27-2025 Hospital Discharg e instructions Patient Education 01/27/2025 09:51:25 Urinary Frequency, Adult Urinary Frequency, Adult Urinary frequency means urinating more often than usual. You may urinate every 1 2 hours even though you drink a normal amount of fluid and do not have a bladder infection or condition. Although you urinate more often than normal, the total amount of urine produced in a day is normal. With urinary frequency, you may have an urgent need to urinate often. The stress and anxiety of needing to find a bathroom quickly can make this urge worse. This condition may go away on its own, or you may need treatment at home. Home treatment may include bladder training, exercises, taking medicines, or making changes to your diet. Follow these instructions at home: Bladder health Your health care provider will tell you what to do to improve bladder health. You may be told to: Keep a bladder diary. Keep track of: ?What you eat and drink. ?How often you urinate. ?How much you urinate. Follow a bladder training program. This may include: ?Learning to delay going to the bathroom. ?Double urinating, also called voiding. This helps if you are not completely emptying your bladder. ?Scheduled voiding. Do Kegel exercises. Kegel exercises strengthen the muscles that help control urination, which may help the condition. Eating and drinking Follow instructions from your health care provider about eating or drinking restrictions. You may be told to: Avoid caffeine. Drink fewer fluids, especially alcohol. Avoid drinking in the evening. Avoid foods or drinks that may irritate the bladder. These include coffee, tea, soda, artificial sweeteners, citrus, tomato-based foods, and chocolate. Eat foods that help prevent or treat constipation. Constipation can make urinary frequency worse. You may need to take these actions to prevent or treat constipation: ?Drink enough fluid to keep your urine pale yellow. ?Take szmg-hoa-lixdsir or prescription medicines. ?Eat foods that are high in fiber, such as beans, whole grains, and fresh fruits and vegetables. ?Limit foods that are high in fat and processed sugars, such as fried or sweet foods. General instructions Take uldw-unz-zukgama and prescription medicines only as told by your health care provider. Keep all follow-up visits. This is important. Contact a health care provider if: You start urinating more often. You feel pain or irritation when you urinate. You notice blood in your urine. Your urine looks cloudy. You develop a fever. You begin vomiting. Get help right away if: You are unable to urinate. Summary Urinary frequency means urinating more often than usual. With urinary frequency, you may urinate every 1 2 hours even though you drink a normal amount of fluid and do not have a bladder infection or other bladder condition. Your health care provider may recommend that you keep a bladder diary, follow a bladder training program, or make dietary changes. If told by your health care provider, do Kegel exercises to strengthen the muscles that help control urination. Take pyra-qic-nhotoqj and prescription medicines only as told by your health care provider. Contact a health care provider if your symptoms do not improve or get worse. This information is not intended to replace advice given to you by your health care provider. Make sure you discuss any questions you have with your health care provider. Document Revised: 01/29/2021 Document Reviewed: 01/29/2021 [employer] Patient Education 2023 [employer]. Follow Up Care 01/08/2025 10:04:10 With:JASMIN MILLS MD, URL Address: When: Unknown [facility] [place] 01-27-2025 Note Patient Education Urology Urinary Frequency, Adult Urinary frequency means urinating more often than usual. You may urinate every 1?2 hours even though you drink a normal amount of fluid and do not have a bladder infection or condition. Although you urinate more often than normal, the total amount of urine produced in a day is normal. With urinary frequency, you may have an urgent need to urinate often. The stress and anxiety of needing to find a bathroom quickly can make this urge worse. This condition may go away on its own, or you may need treatment at home. Home treatment may include bladder training, exercises, taking medicines, or making changes to your diet. Follow these instructions at home: Bladder health Your health care provider will tell you what to do to improve bladder health. You may be told to: ??? Keep a bladder diary. Keep track of: ? What you eat and drink. ? How often you urinate. ? How much you urinate. ??? Follow a bladder training program. This may include: ? Learning to delay going to the bathroom. ? Double urinating, also called voiding. This helps if you are not completely emptying your bladder. ? Scheduled voiding. ??? Do Kegel exercises. Kegel exercises strengthen the muscles that help control urination, which may help the condition. Eating and drinking Follow instructions from your health care provider about eating or drinking restrictions. You may be told to: ??? Avoid caffeine. ??? Drink fewer fluids, especially alcohol. ??? Avoid drinking in the evening. ??? Avoid foods or drinks that may irritate the bladder. These include coffee, tea, soda, artificial sweeteners, citrus, tomato-based foods, and chocolate. ??? Eat foods that help prevent or treat constipation. Constipation can make urinary frequency worse. You may need to take these actions to prevent or treat constipation: ? Drink enough fluid to keep your urine pale yellow. ? Take xppi-xmr-whbiunn or prescription medicines. ? Eat foods that are high in fiber, such as beans, whole grains, and fresh fruits and vegetables. ? Limit foods that are high in fat and processed sugars, such as fried or sweet foods. General instructions ??? Take vvrb-oao-dafvwlr and prescription medicines only as told by your health care provider. ??? Keep all follow-up visits. This is important. Contact a health care provider if: ??? You start urinating more often. ??? You feel pain or irritation when you urinate. ??? You notice blood in your urine. ??? Your urine looks cloudy. ??? You develop a fever. ??? You begin vomiting. Get help right away if: ??? You are unable to urinate. Summary ??? Urinary frequency means urinating more often than usual. With urinary frequency, you may urinate every 1?2 hours even though you drink a normal amount of fluid and do not have a bladder infection or other bladder condition. ??? Your health care provider may recommend that you keep a bladder diary, follow a bladder training program, or make dietary changes. ??? If told by your health care provider, do Kegel exercises to strengthen the muscles that help control urination. ??? Take pzcx-wcd-tcdwqmc and prescription medicines only as told by your health care provider. ??? Contact a health care provider if your symptoms do not improve or get worse. This information is not intended to replace advice given to you by your health care provider. Make sure you discuss any questions you have with your health care provider. Document Revised: 01/29/2021 Document Reviewed: 01/29/2021 [employer] Patient Education ? 2023 [employer]. [facility] 01-12-2025 Note Progress Note-Lisa lópez Patient: LSY COY Age: 69 years Sex: Female : 1955 Associated Diagnoses: None Author: Mesfin BOB, Kiran Kelly Postoperative Information Postoperative disposition: Postoperative disposition: To PACU. Optimetrix number: Optimetrix number [id number]. Anesthetic utilized: General. Health Status Allergies: Allergic Reactions (Selected) No Known Medication Allergies Physical Examination VS/Measurements Pain Assessment: Controlled. General: Awake, Appropriate. Respiratory: Adequate air exchange. Cardiovascular: Stable. Neurological Assessment Anesthetic outcome No anesthetic complications noted. Adequate pain relief. no nausea. Review / Management Condition: Stable. Plan Transfer/Discharge: Transfer/Discharge Discharge when meets criteria ( From PACU to floor ). [facility] Comment on above: Result Comment: Elec tronically Signed By: Mesfin BOB, Kiran Klely\.br\Date and Time Signed: 01/12/25 10:47 EDT 01-08-2025 Evaluation + Plan note Extrac erika from: Title:DC Summ Author:ROMI MILLS MD Date:01/08/25 Discharge Information Discharge Summary Information: Admitted 01/07/2025, Discharged 01/08/2025. Admitting physician: JASMIN MILLS MD. Consulting physician: Bhanu UP MD. Discharge Plan Discharge Time Discharge time > 30 min. Discharge Summary Plan Discharge Status: stable. Discharge instructions given: to patient. Discharge disposition: discharge to home self care. Prescriptions: continue same medications, called to pharmacy. Extracted from: Title:APSO Note Author:Bhanu UP MD Date: 69-year-old female with hist ory of coronary artery disease, hypertension, hyperlipidemia, GERD, bladder wall prolapse was admitted to the urology service and we have been consulted to manage her medical conditions including hypertension, hyperlipidemia, GERD. 1. Pelvic organ prolapse quantification stage 2 cystocele (N81.10: Cystocele, unspecified) Status post robotic sacrocolpopexy postop day # 1 on 01/15/2025. Management by urologist. Continue as needed pain medications. Ordered: [facility] Hospital Care/Day Moderate 35 Minutes 92232 2. CAD (coronary artery disease) (I25.10: Atherosclerotic heart disease of [place] coronary artery without angina pectoris) Clinically stable. Okay to resume Plavix with approval from neurologist. Ordered: [facility] Hospital Care/Day Moderate 35 Minutes [id number] 3. Hyperlipidemia (E78.5: Hyperlipidemia, unspecified) Continue on Crestor. Ordered: [facility] Hospital Care/Day Moderate 35 Minutes 80907 4. Hypertension (I10: Essential (primary) hypertension) On lisinopril. Ordered: [facility] Hospital Care/Day Moderate 35 Minutes 64607 5. GERD (gastroesophageal reflux disease) (K21.9: Gastro-esophageal reflux disease without esophagitis) On PPI. 6. On deep vein thrombosis (DVT) prophylaxis (Z79.899: Other usp (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 therapy) SCDs. Disposition: Home soon as per primary service. I discussed the diagnosis and plan of care with the patient at the bedside. Moderate level of MDM based on addressing above issues. This documentation was transcribed using voice recognition software. Several attempts were made to ensure accuracy. However inadvertent computerized retail banking manager errors may be present. Bhanu Up. Hospitalist. Orders: atorvastatin, 80 mg = 2 tab(s), Tab, Oral, Daily, Routine, Start date 01/08/25 9:00:00 EDT, 01/07/25 15:38:00 EDT pantoprazole, 40 mg = 1 tab(s), Tab-DR, Oral, Daily, Routine, Start date 01/07/25 21:00:00 EDT Extracted from: Title:Admission H & P Author:Bhanu UP MD Date:01/07/25 69-year-old female with hist ory of coronary artery disease, hypertension, hyperlipidemia, GERD, bladder wall prolapse was admitted to the urology service and we have been consulted to manage her medical conditions including hypertension, hyperlipidemia, GERD. 1. Pelvic organ prolapse quantification stage 2 cystocele (N81.10: Cystocele, unspecified) Status post robotic sacrocolpopexy postop day #0 on 01/15/2025. Management by urologist. Continue as needed pain medications. Ordered: Initial Hospital Care/Day Moderate 55 Minutes 07379 2. CAD (coronary artery disease) (I25.10: Atherosclerotic heart disease of [place] coronary artery without angina pectoris) Clinically stable. Will resume Plavix in a.m. after confirming with urologist. Ordered: Initial Hospital Care/Day Moderate 55 Minutes 30155 3. Hyperlipidemia (E78.5: Hyperlipidemia, unspecified) On Crestor at home. Ordered: Initial Hospital Care/Day Moderate 55 Minutes [id number] 4. Hypertension (I10: Essential (primary) hypertension) On lisinopril at home. Temporarily on hold with blood pressure on the low side. Continue IV fluid. Ordered: Initial Hospital Care/Day Moderate 55 Minutes 66273 5. GERD (gastroesophageal reflux disease) (K21.9: Gastro-esophageal reflux disease without esophagitis) PPI. 6. On deep vein thrombosis (DVT) prophylaxis (Z79.899: Other director of contracts (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 therapy) SCDs. The patient was admitted under observation status with anticipation of staying less than 2 midnights in the hospital. Thanks for the opportunity to participate in the care of this pleasant lady. Will follow with you. I discussed the diagnosis and plan of care with the patient at the bedside. Moderate level of MDM based on addressing above issues. This documentation was transcribed using voice recognition software. Several attempts were made to ensure accuracy. However inadvertent computerized retail banking manager errors may be present. Bhanu Up. Hospitalist. Orders: atorvastatin, 80 mg = 2 tab(s), Tab, Oral, Daily, Routine, Start date 01/08/25 9:00:00 EDT, 01/07/25 15:38:00 EDT pantoprazole, 40 mg = 1 tab(s), Tab-DR, Oral, Daily, Routine, Start date 01/08/25 9:00:00 EDT, 01/07/25 15:39:00 EDT Extracted from: Title:ANES Pre-operative Note Author:Mesfin BOB, Michael Kelly Date:01/07/25 Plan [employer] [employer] (ASA) physical status classification: Class III. Anesthetic Preoperative Plan: Anesthesia General. Future Appointments Appointment Date:01/27/2025 09:00:00 AM Scheduled Provider:JASMIN MILLS MD Location:[facility] Appointment Type:URO Office Visit [facility] 07-02-2025 Hospital Discharge instructions Patient Education 01/08/2025 09:50:47 Post Op Patient Instructions - FT(CUSTOM) Follow Up Care 12/16/2024 12:15:50 With:ELIAZAR SHAH Address: [address] [place] [phone] Business (1) When:01/23/2025 08:30:00 With:JASMIN MILLS Address:Unknown When: Unknown Comments:Doctor's office will contact patient to schedule hospital follow up appointment. [facility] 07-02-2025 NoteProgress Note-Physician Assessment/Plan 69-year-old female with history of coronary artery disease, hypertension, hyperlipidemia, GERD, bladder wall prolapse was admitted to the urology service and we have been consulted to manage her medical conditions including hypertension, hyperlipidemia, GERD. 1. Pelvic organ prolapse quantification stage 2 cystocele (N81.10: Cystocele, unspecified) Status post robotic sacrocolpopexy postop day # 1???on 01/15/2025. Management by urologist. Continue as needed pain medications. [facility] Care/Day Moderate 35 Minutes 86631 2. CAD (coronary artery disease) (I25.10: Atherosclerotic heart disease of [place] coronary artery without angina pectoris) Clinically stable. Okay to resume Plavix with approval from neurologist. Ordered: [facility] Care/Day Moderate 35 Minutes 72788 3. Hyperlipidemia (E78.5: Hyperlipidemia, unspecified) Continue on Crestor. Ordered: [facility] Hospital Care/Day Moderate 35 Minutes 10323 4. Hypertension (I10: Essential (primary) hypertension) On lisinopril. Ordered: [facility] Hospital Care/Day Moderate 35 Minutes 40149 5. GERD (gastroesophageal reflux disease) (K21.9: Gastro-esophageal reflux disease without esophagitis) On PPI. 6. On deep vein thrombosis (DVT) prophylaxis (Z79.899: Other usp (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 therapy) SCDs. Disposition: Home soon as per primary service. I discussed the diagnosis and plan of care with the patient at the bedside. Moderate level of MDM based on addressing above issues. This documentation was transcribed using voice recognition software. Several attempts were made to ensure accuracy. However inadvertent computerized retail banking manager errors may be present. Bhanu Up. Hospitalist. Orders: atorvastatin, 80 mg = 2 tab(s), Tab, Oral, Daily, Routine, Start date 01/08/25 9:00:00 EDT, 01/07/25 15:38:00 EDT pantoprazole, 40 mg = 1 tab(s), Tab-DR, Oral, Daily, Routine, Start date 01/07/25 21:00:00 EDT Subjective Seen and examined. Slept well last night. Has mild surgical site pain. Objective Vitals & Measurements T: 36.7 ???C(Oral) TMIN: 36.2 ???C(Temporal Artery) TMAX: 36.8 ???C(Oral) HR: 67(Monitored) RR: 17 BP: 139/69 SpO2: 98% HT: 152.40 cm WT: 58.3 kg Intake & Output This visit (24 hour periods starting at 07:00 EDT) 01/08/25 * 01/07/25 01/06/25 Total Summary Intake mL -- 2,288.42 -- Output mL -- 1,100 -- Fluid Balance -- 1,188.42 -- Intake (5) Lactated Ringers Injection 1,000 mL mL -- 50 -- Oral Intake mL -- 900 -- Sodium Chloride 0.9% intravenous solution 1,000 mL mL -- 1,185.42 -- Sodium Chloride 0.9%, cefazolin mL -- 150 -- ketorolac mL -- 3 -- Total -- 2,288.42 -- Output (2) Urine Catheter mL -- 850 -- Urine Voided mL -- 250 -- Total -- 1,100 -- Counts (1) Urine Count -- 1 -- * This column has not completed the indicated time period. Physical Exam General: alert, no acute distress, comfortable in bed on room air. Eating breakfast. Skin: warm, dry Head: no trauma, normocephalic Neck: Trachea midline, no adenopathy, no tenderness Eye: normal conjunctiva, sclera clear ENMT: TM's clear, oral mucosa moist, no pharyngeal erythema or exudate Cardiovascular: regular rate and rhythm, normal peripheral perfusion Respiratory: Lungs CTA, respirations non labored Chest wall: no deformity. Gastrointestinal: soft, non distended, no tenderness, no guarding. Bowel sounds intact. Surgical sites intact. Back: No tenderness, Normal ROM, Normal alignment. Extremities: no deformity, no trauma Neurological: oriented x 4, LOC appropriate for age, CN II-XII intact, motor strength equal & normal bilaterally, sensation equal & normal bilaterally, speech normal Psychiatric: cooperative, affect appropriate for age, normal judgement, normal psychiatric thoughts. Lab Results No qualifying data available. Problem List/Past Medical History Ongoing Anticoagulant long-term use Antiplatelet or antithrombotic long-term use CAD (coronary artery disease) Female bladder prolapse Frequency of urination Hyperlipidemia Hypertension Kidney stones Microscopic hematuria Personal history of kidney stones Renal cyst Right flank pain Smoker UTI (urinary tract infection) UTI symptoms Vaginal atrophy Historical Anticoagulant allergy Medications Inpatient acetaminophen 325 mg Tab, 650 mg= 2 tab(s), Oral, q6hr atorvastatin 40 mg Tab, 80 mg= 2 tab(s), Oral, Daily Benadryl 25 mg Cap, 25 mg= 1 cap(s), Oral, q6hr, PRN cefazolin additive + Sodium Chloride 0.9% intravenous solution 50 mL hydrALAZINE 20 mg/mL Inj, 10 mg= 0.5 mL, IV Push, q6hr, PRN melatonin 3 mg Tab, 3 mg= 1 tab(s), Oral, Bedtime, PRN morphine 2 mg/mL Inj, 2 mg= 1 mL, IV Push, q4hr, PRN NS 1000 mL Soln-IV 1,000 mL, 1000 mL, IV oxyCODONE 5 mg Tab, 5 mg= 1 tab(s), Oral, q6hr, PRN Pantoprazol (more content not included)...TrihealthComment on above:Result Comment: Electronically Signed By: Bhanu UP MD\.br\Date and Time Signed: 01/08/25 10:14 [id number] NoteDischarge Summary Patient: SLY COY Age: 69 years Sex: Female : 1955 Associated Diagnoses: None Author: JASMIN MILLS MD Discharge Information Discharge Summary Information: Admitted 01/07/2025, Discharged 01/08/2025. Admitting physician: JASMIN MILLS MD. Consulting physician: Bhanu UP MD. Results Review Afebrile, vital signs stable. Physical Examination Gen: NAD, AOX3 Lungs: Nonlabored breathing CV: RRR Abd: Incisions clean dry, intact with no erythema, induration palpable fluctuance : No flank or suprapubic tenderness on palpation Extremities: No peripheral edema noted on palpa Hospital Course Patient is a 69-year-old female with anterior pelvic organ prolapse presenting for a robotic abdominal sacrocolpopexy, cystocele repair. She underwent the procedure on 01/07 and did well in the postoperative period. On postoperative day 1 the Jacobsen catheter was removed and she voided without difficulty, vaginal packing was removed as well. She was ambulated without difficulty, pain was well-controlled and thus was deemed appropriate for discharge to home. She discharged home with stool softener, pain medication, antibiotics Discharge Plan Discharge Time Discharge time > 30 min. Discharge Summary Plan Discharge Status: stable. Discharge instructions given: to patient. Discharge disposition: discharge to home self care. Prescriptions: continue same medications, called to pharmacy.TrihealthComment on above:Result Comment: Electronically Signed By: THONY BOB, JASMIN\.jen\Date and Time Signed: 01/08/25 09:35 EDT 01-07-2025 NoteHistory and Physical Chief Complaint Had surgery today. Medical consult for management of HTN, Hyperlipidemia and GERD. History of Present Illness 69-year-old female with history of hypertension, hyperlipidemia, GERD, bladder wall prolapse was admitted to the urology service and we have been consulted to manage her medical conditions including hypertension, hyperlipidemia, GERD. She currently denies any chest pain, shortness of breath, dizziness, fever, nausea or vomiting. Denies abdominal pain. Review of Systems Constitutional: no fever, no chills, no sweats, no weakness Skin: no Jaundice, no rash, no lesions, nopetechiae ENMT: no ear pain, no sore throat, no congestion, no hoarseness Respiratory: no shortness of breath, no cough, no orthopnea, no wheezing Cardiovascular: no chest pain, no palpitations, no edema Gastrointestinal: no nausea, no vomiting, no diarrhea, no GI bleeding Genitourinary: no dysuria, no hematuria, no discharge, no pain Musculoskeletal: no back pain, no trauma Neurologic: no headache, no dizziness, no numbness, no weakness Psychiatric: no sleeping problems, no irritability, no mood swings/depression. Heme/Lymph: no bleeding tendency, no bruising tendency, no petechiae, no swollen nodes Allergy/Immunologic: no seasonal allergies, no food allergies, no recurrent infections, no impairedimmunity Additional ROS info: Except as noted in the above Review of Systems and in the History of Present Illness all other systems have been reviewed and are negative or noncontributory. Scoring Diaz Fall Risk Score: 35 (01/07/25) Physical Exam Vitals & Measurements T: 36.3 ???C(Oral) TMIN: 36.2 ???C(Temporal Artery) TMAX: 36.5 ???C(Oral) HR: 82(Monitored) RR: 15 BP: 106/52 SpO2: 96% HT: 152.40 cm WT: 58.5 kg General: alert, no acute distress, comfortable in bed on nasal cannula oxygen. Skin: warm, dry Head: no trauma, normocephalic Neck: Trachea midline, no adenopathy, no tenderness Eye: normal conjunctiva, sclera clear ENMT: TM's clear, oral mucosa moist, no pharyngeal erythema or exudate Cardiovascular: regular rate and rhythm, normal peripheral perfusion Respiratory: Lungs CTA, respirations non labored Chest wall: no deformity. Gastrointestinal: soft, non distended, no tenderness, no guarding. Bowel sounds intact. Genitourinary: Jacobsen catheter in place and draining clear urine. Back: No tenderness, Normal ROM, Normal alignment. Extremities: no deformity, no trauma Neurological: oriented x 4, LOC appropriate for age, CN II-XII intact, motor strength equal & normal bilaterally, sensation equal & normal bilaterally, speech normal Psychiatric: cooperative, affect appropriate for age, normal judgement, normal psychiatric thoughts. Lab Results ABO/Rh: O POS (01/07/25 07:37:00) ABO/Rh Retype Interp: O POS (01/07/25 07:17:00) ABSC Gel Interp: Negative (01/07/25 07:37:00) Assessment/Plan 69-year-old female with history of coronary artery disease, hypertension, hyperlipidemia, GERD, bladder wall prolapse was admitted to the urology service and we have been consulted to manage her medical conditions including hypertension, hyperlipidemia, GERD. 1. Pelvic organ prolapse quantification stage 2 cystocele (N81.10: Cystocele, unspecified) Status post robotic sacrocolpopexy postop day #0???on 01/15/2025. Management by urologist. Continue as needed pain medications. Ordered: Initial Hospital Care/Day Moderate 55 Minutes [id number] 2. CAD (coronary artery disease) (I25.10: Atherosclerotic heart disease of [place] coronary artery without angina pectoris) Clinically stable. Will resume Plavix in a.m. after confirming with urologist. Ordered: Initial Hospital Care/Day Moderate 55 Minutes 42179 3. Hyperlipidemia (E78.5: Hyperlipidemia, unspecified) On Crestor at home. Ordered: Initial Hospital Care/Day Moderate 55 Minutes 06058 4. Hypertension (I10: Essential (primary) hypertension) On lisinopril at home. Temporarily on hold with blood pressure on the low side. Continue IV fluid. Ordered: Initial Hospital Care/Day Moderate 55 Minutes 22866 5. GERD (gastroesophageal reflux disease) (K21.9: Gastro-esophageal reflux disease without esophagitis) PPI. 6. On deep vein thrombosis (DVT) prophylaxis (Z79.899: Other usp (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 therapy) SCDs. The patient was admitted under observation status with anticipation of staying less than 2 midnights in the hospital. Thanks for the opportunity to participate in the care of this pleasant lady. Will follow with you. I discussed the diagnosis and plan of care with the patient at the bedside. Moderate level of MDM based on addressing above issues. This documentation was transcribed using voice recognition software. Several attempts were made to ensure accuracy. However inadvertent computerized retail banking manager errors may be present. Bhanu Up. Hospitalist. Orders: atorvastatin, 80 mg = 2 tab(s), Tab, Oral, Daily, Routine (more content not included)...TrihealthComment on above:Result Comment: Electronically Signed By: Bhanu UP MD\.br\Date and Time Signed: 01/07/25 15:40 [id number] NoteProgress Note-Physician Patient: SLY COY Age: 69 years Sex: Female : 1955 Associated Diagnoses: None Author: Kiran Toure MD Preoperative Information Anesthesia Preop Info: Time patient last ate or drank 01/07/2025 00:00:00. Anesthesia history: Patient history: None. Family history+: None. Informed consent: Signed by patient. Including risks, benefits, and alternatives related to the: Anesthetic plan, Postoperative pain management plan. Re-evaluation prior to induction: Kiran Toure MD. Review of Systems Eye Ear/Nose/Mouth/Throat Respiratory: No shortness of breath, No cough. Cardiovascular: Negative, No chest pain. Gastrointestinal: No heartburn. Musculoskeletal Neurologic Health Status Allergies: Allergic Reactions (Selected) No Known Medication Allergies, Allergies (1) Active Severity Reaction No Known Medication Allergies None Documented Current medications: (Selected) Inpatient Medications Ordered Benadryl 25 mg Cap: 25 mg = 1 cap(s), Cap, Oral, q6hr PRN Itching, Routine, Start date 01/07/25 12:03:00 EDT, 01/07/25 12:03:00 EDT Lactated Ringers IV Kiersten 1000 mL 1,000 mL: 1,000 mL, IV, 150 mL/hr, Routine, Start date 01/07/25 6:30:00 EDT, 6.7 hour(s), Total volume (mL): 1,000, 55.1 kg, 1.55, m2 NS 1000 mL Soln-IV 1,000 mL: 1,000 mL, IV, 75 mL/hr, Routine, Start date 01/07/25 12:03:00 EDT, 13.3 hour(s), Total volume (mL): 1,000, 55.1 kg, 1.55, m2 Robaxin 500 mg Tab: 500 mg = 1 tab(s), Tab, Oral, TID, Routine, Start date 01/07/25 14:00:00 EDT Zofran 4 mg/2 mL Injection: 4 mg = 2 mL, Injection, IV Push, q6hr PRN Nausea, Routine, Start date 01/07/25 12:03:00 EDT, 01/07/25 12:03:00 EDT acetaminophen 325 mg Tab: 650 mg = 2 tab(s), Tab, Oral, q6hr, Routine, Start date 01/07/25 12:00:00EDT, 01/07/25 11:59:00 EDT cefazolin additive + Sodium Chloride 0.9% intravenous solution 50 mL: 1 gm = 1 EA, Injection, IV Piggyback, q8hr for 25 dose(s), Stop date 01/15/25 23:59:00 EDT, Routine, Start date 01/07/25 16:00:00EDT, 100 mL/hr, Infuse over 30 minute(s) hydrALAZINE 20 mg/mL Inj: 10 mg = 0.5 mL, Injection, IV Push, q6hr PRN Other (see comment), Routine, Start date 01/07/25 12:03:00 EDT, 01/07/25 12:03:00 EDT ketorolac 15 mg/mL Inj: 15 mg = 1 mL, Injection, IV Push, q6hr for 3 dose(s), Stop date 01/08/25 5:59:00 EDT, Routine, Start date 01/07/25 12:00:00 EDT, 01/07/25 11:58:00 EDT melatonin 3 mg Tab: 3 mg = 1 tab(s), Tab, Oral, Bedtime PRN Insomnia, Routine, Start date 01/07/25 12:01:00 EDT morphine 2 mg/mL Inj: 2 mg = 1 mL, Injection, IV Push, q4hr PRN Pain for 5 day(s), Stop date 01/12/25 12:02:00 EDT, Routine, Start date 01/07/25 12:03:00 EDT oxyCODONE 5 mg Tab: 5 mg = 1 tab(s), Tab, Oral, q6hr PRN Pain for 5 day(s), Stop date 01/12/25 11:58:00 EDT, Routine, Start date 01/07/25 11:59:00 EDT, 01/07/25 11:59:00 EDT Prescriptions Prescribed Estrace 0.1 mg/g Cream: See Instructions, 42.5 gm, Refill(s) 3, apply pea size amount to urethra/inner vagina 3x/week x 1 month, then 2x/week for maintainence, [facility], 152.4, cm, 05/10/23 9:55:00 EDT, Height/Length Dosing, 57.6, kg, 05/10/23 9:55:00 EDT, Weight... Documented Medications Documented Plavix 75 mg Tab: 75 mg = 1 tab(s), Oral, Daily, Refills(s) 0 Vitamin D3 1000 intl units (25 mcg) Tab: 25 mcg = 1 tab(s), Oral, Daily alendronate 70 mg Tab: 70 mg = 1 tab(s), Oral, q7day alprazolam: 1 mg, Oral, Daily, PRN as needed for anxiety, Refills(s) 0 citalopram 40 mg Tab: 40 mg = 1 tab(s), Oral, Daily cyclobenzaprine 5 mg Tab: 5 mg = 1 tab(s), Oral, TID, PRN Pain famotidine 40 mg Tab: 40 mg = 1 tab(s), Oral, Once a day (at bedtime) lisinopril 40 mg Tab: 40 mg = 1 tab(s), Oral, Daily, Refills(s) 0 nitroglycerin 0.4 mg sublingual Tab: 0.4 mg = 1 tab(s), SubLingual, q5min, PRN for chest pain omeprazole 40 mg Cap-DR: 40 mg = 1 cap(s), Oral, Bedtime rosuvastatin 40 mg Tab: 40 mg = 1 tab(s), Oral, Daily tamsulosin 0.4 mg Cap: 0.4 mg = 1 cap(s), Oral, Daily traMADOL 50 mg Tab: 50 mg = 1 tab(s), Oral, q12hr, PRN for pain, Home Medications (14) Active alendronate 70 mg Tab 70 mg = 1 tab(s), Oral, q7day alprazolam 1 mg, PRN, Oral, Daily citalopram 40 mg Tab 40 mg = 1 tab(s), Oral, Daily cyclobenzaprine 5 mg Tab 5 mg = 1 tab(s), PRN, Oral, TID Estrace 0.1 mg/g Cream See Instructions famotidine 40 mg Tab 40 mg = 1 tab(s), Oral, Once a day (at bedtime) lisinopril 40 mg Tab 40 mg = 1 tab(s), Oral, Daily nitroglycerin 0.4 mg sublingual Tab 0.4 mg = 1 tab(s), PRN, SubLingual, q5min omeprazole 40 mg Cap-DR 40 mg = 1 cap(s), Oral, Bedtime Plavix 75 mg Tab 75 mg = 1 tab(s), Oral, Daily rosuvastatin 40 mg Tab 40 mg = 1 tab(s), Oral, Daily tamsulosin 0.4 mg Cap 0.4 mg = 1 cap(s), Oral, Daily traMADOL 50 mg Tab 50 mg = 1 tab(s), PRN, Oral, q12hr Vitamin D3 1000 intl units (25 mcg) Tab 25 mcg = 1 tab(s), Oral, Daily , Medications (12) Active Scheduled: (4) acetaminophen 325 mg Tab UD [ (more content not included)...TrihealthComment on above:Result Comment: Electronically Signed By: Mesfin BOB, Kiran Kelly\.br\Date and Time Signed: 01/07/25 13:53 [id number] History of Present illness Narrative* Lory Marcus Andres, WEEKEND RECEPTIONIST-BOTTLED BEVERAGE INSPECTOR - 12/31/2024 1:00 PM EDT Sly Kevyn Coy Date of visit: 12/31/2024 Date of : 1955 Age: 69 y.o. Patient Active Problem List Diagnosis Mineral metabolism disorder Hematuria, gross Nephrolithiasis Renal cyst Chest pain Dizziness Coronary artery disease of [place] artery of [place] heart with stable angina pectoris Presence of drug-eluting stent in right coronary artery Hypertensive heart disease without heart failure Mixed hyperlipidemia No Known Allergies Current Outpatient Medications Medication Sig Dispense Refill alendronate (FOSAMAX) 70 mg tablet Take 1 tablet (70 mg total) by mouth every 7 days. In a.m. with water on empty stomach, nothing else by mouth and remain upright for 30min citalopram (CeleXA) 20 mg tablet Take 1 [...] total) by mouth nightly. 90 tablet 3 nitroglycerin (NITROSTAT) 0.4 MG SL tablet 1 under the tongue as needed for angina, may repeat q5mins for up three doses 30 tablet 3 omeprazole (PriLOSEC) 40 mg capsule Take 1 capsule (40 mg total) by mouth in the morning. rosuvastatin (CRESTOR) 20 mg tablet Take 1 tablet (20 mg total) by mouth in the morning. 90 tablet 3 No current facility-administered medications for this visit. Chief Complaint Patient presents with Pre-op Exam EST PT F/U 6 MS L/S MS, TESTING DONE [facility], SCHED W/PT, PREOP CLEARANCE DR MILLS 01/07/2025 ROBOTIC SACROCOLPOPEXY, PAT'S 12/23/24 [facility] [place] FORM SCANNED TO MEDIA History of Present Illness DP is a 69 yo F who presents to the office today for her 6 month follow up and for pre op clearance. She has a hx of CAD s/p CARRILLO to RCA, HTN, and HLD. TTE from 2021 shows EF of 55-60% with no wall motion abnormalities nor significant valvulopathy. LHC on 01/23/2023 showed single-vessel disease in the RCA, patient underwent successful CARRILLO at that time. I can not find a cholesterol panel completed in the past decade. Today, she denies CP, SOB, or palpitations at this time. No syncope. However, she has been having leg cramps. She does unfortunately continue to smoke. She walks her dog 3x a day without issue. Patient was seen when Dr. Brown was readily available in office. Past Medical History: Diagnosis Date Anxiety Bronchitis Chest pain Dizziness GERD (gastroesophageal reflux disease) Hyperlipidemia Hypertension Kidney stones Vertigo No data recorded No data recorded No data recorded Past Surgical History: Procedure Laterality Date BLADDER SURGERY 01/2018 bladder suspension COLONOSCOPY COLONOSCOPY N/A 12/24/2020 Performed by Tyler Wesley MD at [facility] DILATION AND CURETTAGE OF UTERUS ESOPHAGOGASTRODUODENOSCOPY ESOPHAGOGASTRODUODENOSCOPY 12/20/2022 ESOPHAGOGASTRODUODENOSCOPY N/A 12/24/2020 Performed by Tyler Wesley MD at [facility] HYSTERECTOMY 01/15/2018 LASER ABLATION uterine LITHOTRIPSY [...] on file Food Insecurity: No Food Insecurity (12/31/2024) Hunger Screening Food Insecurity - Worry: Never True Food Insecurity - Inability: Never True Transportation Needs: Not on file Physical Activity: Not on file Stress: Not on file Social Connections: Not on file Interpersonal Safety: Not on file Housing Instability: Not on file Review of Systems Review of Systems Constitutional: Negative. HENT: Negative. Eyes: Negative. Cardiovascular: Negative. Respiratory: Negative. Endocrine: Negative. Negative for polyuria. Hematologic/Lymphatic: Bruises/bleeds easily. Skin: Negative. Musculoskeletal: Positive for back pain. Gastrointestinal: Negative. Genitourinary: Negative. Neurological: Negative. Psychiatric/Behavioral: Negative. Allergic/Immunologic: Negative. Vascular: Negative. CARDIOVASCULAR: Please review HPI. Physical Examination General [...] mood, memory and judgement. VITAL SIGNS: BP 116/66 Pulse 92 Ht 154.9 cm (5' 1 ) Wt 54.9 kg (121 lb) SpO2 98% BMI 22.86 kg/m Orders Placed or Reconciled This Encounter Medications alendronate (FOSAMAX) 70 mg tablet Sig: Take 1 tablet (70 mg total) by mouth every 7 days. In a.m. with water on empty stomach, nothing else by mouth and remain upright for 30min Medications Discontinued During This Encounter Medication Reason aspirin 81 mg Therapy completed IMPRESSIONS/PLAN 1. Hx of right coronary artery stent placement - POCT EKG - Lipid panel; Future 2. Coronary artery disease of [place] artery of [place] heart with stable angina pectoris - Lipid panel; Future 3. Hypertensive heart disease without heart failure 4. Presence of drug-eluting stent in right coronary artery - Lipid panel; Future 5. Mixed hyperlipidemia - Lipid panel; Future PLAN After review of chart, it was recommended she stop aspirin after 12 months. It has been over 12 months. Stop aspirin. According to the revised cardiac risk index, patient is of moderate risk. Risk is non prohibitive. She may hold her plavix 5-7 days if required. Complete lipid panel. BP and HR are well controlled on lisinopril, toprol, imdur. She is tolerating plavix and imdur, no ACS. She appears euvolemic. Smoking cessation education provided Continue cardiac medications. Refills have been sent Recommend follow up in one year. TODAYS ORDERS Orders Placed This Encounter Procedures Lipid panel POCT EKG FOLLOW UP No follow-ups on file. PCP: ELVA Sharma Referring Physician: DAI Gonzales [address] [place] [address] DAI Gonzales 12/31/24 1328 DAI Gonzales 12/31/24 1329 DAI Gonzales 12/31/24 1338 documented in this encounterSelect [facility]06-24-[facility]25 Instructions* Patient Instructions* DAI Gonzales - 12/31/2024 1:00 PM EDT Are You Ready To Kick The Habit? Free Tobacco Cessation Resources [facility] Services [facility] provide all employees with free tobacco cessation services that include: Counseling to understand nicotine addiction Education about medications that can help you successfully quit Assistance with developing a plan to quit Call to set up an individual appointment or find out when group classes will be held: [facility]: [phone] [facility]: [phone] [facility]: [phone] [facility]: [phone] Quit Smoking Action Plan and Resources [facility] offers an eight-week, online smoking cessation plan to all [facility] employees, regardless of whether [employer] is your medical insurance provider. Go to [email or web address] and click the Health Risk Assessment and Resources link to get started. In the [email or web address] menu, click Action Plans instead of Health Risk Assessment to access the Quit Smoking Action Plan. Additional smoking cessation resources are also available to all [facility] employees on the Tnpnx2Jsegfd web page at www.Appurify.com/quitsmoking. [facility] If [employer] is your medical insurance provider, there are more free resources available to you, including: No copays or deductibles on local tobacco cessation counseling services to help you quit Prescription assistance for tobacco cessation medications to help you quit For details about the tobacco cessation program available to [employer] members, go to www.[employer] (Search: Tobacco Cessation Program). [place] Tobacco Quit Line 2-592-RWEI-NOW ( ) is a toll-free, telephonic service that helps [place] residents quit smoking and using tobacco. It is staffed by experts who tailor a quit plan for you and provide you with advice. [place] Tobacco Quit Line 0-247-ZROW-NOW ( ) is a toll-free, telephonic service that helps [place] residents quit smoking and using tobacco. It is staffed by experts who tailor a quit plan for you and provide you with advice. Two weeks of nicotine replacement therapy may be provided at no charge, if needed. Additional Resources These national organizations also offer free information and resources to help you quit tobacco: [place] [employer]--www.cancer.org/healthy/stayawayfromtobacco [place] [employer]--www.heart.org (Search: Quit Smoking) Centers for Disease Control and Prevention--www.cdc.gov/tobacco [place] [employer]--www.lungusa.org documented in this [facility] Discharge instructions Patient Education 12/16/2024 12:00:43 Sacrocolpopexy Sacrocolpopexy Sacrocolpopexy is a surgical procedure to return the top part of the vagina (vaginal vault) to its normal position inside the pelvis. This procedure is done when the vaginal vault drops down into thelower vagina (vaginal prolapse). It repairs the condition and relieves its symptoms, which may include bowel or bladder problems and low back pain. You may need this procedure if your pelvic muscles have become weak after childbirth, or if you have had surgery to remove your uterus (hysterectomy). During the procedure, a surgeon may use a surgical mesh to lift and support your vagina. Tell a health care provider about: Any allergies you have. All medicines you are taking, including vitamins, herbs, eye drops, creams, and gbcl-rky-nmifgey medicines. Any problems you or family members have had with anesthetic medicines. Any blood disorders you have. Any surgeries you have had. Any medical conditions you have. Whether you are or may be . What are the risks? Generally, this is a safe procedure. However, problems may occur, including: The vaginal prolapse happening again after surgery. This is the most common problem. Bleeding. Vaginal pain. Pain or reduced sensation during sexual intercourse. Infection. Loss of urinary or bowel control. The surgical mesh moving or becoming unattached. Having a blood clot that forms in your leg and travels to your lungs (pulmonary embolism). What happens before the procedure? Staying hydrated Follow instructions from your health care provider about hydration, which may include: Up to 2 hours before the procedure you may continue to drink clear liquids, such as water, clear fruit juice, black coffee, and plain tea. Eating and drinking restrictions Follow instructions from your health care provider about eating and drinking, which may include: 8 hours before the procedure stop eating heavy meals or foods, such as meat, fried foods, or fatty foods. 6 hours before the procedure stop eating light meals or foods, such as toast or cereal. 6 hours before the procedure stop drinking milk or drinks that contain milk. 2 hours before the procedure stop drinking clear liquids. Medicines Ask your health care provider about: ?Changing or stopping your regular medicines. This is especially important if you are taking diabetes medicines or blood thinners. ?Taking medicines such as aspirin and ibuprofen. These medicines can thin your blood. Do not take these medicines unless your health care provider tells you to take them. ?Taking knuq-pzd-dscllwi medicines, vitamins, herbs, and supplements. General instructions Do not use any products that contain nicotine or tobacco for at least 4 weeks before the procedure.These products include cigarettes, chewing tobacco, and vaping devices, such as e-cigarettes. If you need help quitting, ask your health care provider. You may need to follow a certain diet and take medicines to clean out your digestive system (bowel prep). ?Follow your health care provider's instructions. Bowel prep is done to make sure your bowel is empty for the procedure. It can also prevent constipation. ?You may need to start your bowel prep a few days before the procedure. You may be required to use a vaginal cream to strengthen your vaginal tissues. Use it as told by your health care provider. Ask your health care provider what steps will be taken to help prevent infection. These steps may include: ?Removing hair at the surgery site. ?Washing skin with a germ-killing soap. ?Taking antibiotic medicine. Plan to have a responsible adult take you home from the hospital or clinic. What happens during the procedure? An IV will be inserted into one of your veins. You will be given one or more of the following: ?A medicine to help you relax (sedative). ?A medicine to make you fall asleep (general anesthetic). ?A medicine that is injected into your spine to numb the area below and slightly above the injection site (spinal anesthetic). ?An antibiotic medicine to prevent infection. A tube (catheter) will be inserted to drain your bladder. Your surgeon will perform the surgery using one of the following methods: ?Open surgery. The surgery will be done through a small incision made in the skin on your lower abdomen. ?Laparoscopic surgery. The surgery will be done through several tiny incisions, using long instruments and a telescopic camera. In some cases, laparoscopic surgery will be done by remote control (robotic surgery). Your surgeon will make one or more incisions and separate your vagina from your bowel and your bladder. Your surgeon will push up the vaginal prolapse and attach a surgical mesh to your vagina. The mesh will be used to lift your vaginal vault. It will be attached to a part of your tailbone with stitches (sutures) or natasha. Your surgeon will close the incisions with sutures or natasha. The procedure may vary among health care providers and hospitals. What happens after the procedure? Your blood pressure, heart rate, breathing rate, and blood oxygen level will be monitored until youleave the hospital or clinic. You may have a bandage in your vagina for a few days. Your catheter may be removed soon after your surgery. You may have to wear compression stockings. These stockings help to prevent blood clots and reduce swelling in your legs. You will be encouraged to walk when you can get out of bed. Walking helps prevent blood clots. You will be given fluids and nutrition through an IV until you can start eating on your own. You will be given pain medicine as needed. You may also be given antibiotics to prevent infection and a medicine to prevent blood clots. Summary Sacrocolpopexy is a surgical procedure that is done to repair vaginal prolapse, a condition in which the top part of the vagina (vaginal vault) drops down into the lower vagina. The surgery will relieve symptoms such as bowel or bladder problems and low back pain. During the procedure, a surgeon may use a surgical mesh to lift and support your vagina. Follow instructions from your health care provider about when to stop eating and drinking before the procedure. This information is not intended to replace advice given to you by your health care provider. Make sure you discuss any questions you have with your health care provider. Document Revised: 12/29/2020 Document Reviewed: 12/29/2020 [employer] Patient Education 2023 [employer]. Follow Up Care 11/20/2024 15:36:52 With:THONY BOB, JOCELYN CASTELLANOS Address: When: Unknown [facility] 06-09-2025 NoteUrology Office/Clinic Note Chief Complaint reassess, discuss procedure HPI Staff 69 year old female here assess & discuss procedure Previous DX: kidney stones, Rt. flank pain, personal H/O kidney stones, female bladder prolapse, frequency, vaginal atrophy, renal cyst Pt. using Estrace cream CT done 11/29/24 pt denies any urinary issues today, pt does see blood in urine once in a while History of Present Illness Tests reviewed: reviewed UA and CT. I have reviewed the previous health record information and history for this patient from Venita Gibson PA-C I have reviewed and verified the staff [...] See HPI. Physical Exam Vitals & Measurements T: 36.7 ???C(Oral) HR: 72(Peripheral) RR: 16 BP: 112/60 HT: 152 cm HT: 60 in WT: 54.5 kg WT: 120.152 lb BMI: 23.59 General Appearance: alert , no acute distress, well nourished, well developed female. Genitourinary: grade III cystocele to level of introitus. Assessment/Plan Saw LT 11/05/24 due to R flank pain following ESWL. Portions of this record may have been created with voice recognition artificial intelligence software, specifically TribeHR, Still[employer]ure and or [employer]ium. Substitutions may have occurred due to the inherent limitations of voice recognition and artificial intelligence software. 1. Female bladder prolapse (N81.10: Cystocele, unspecified) S/p vaginal hysterectomy 2018. Still has ovaries. S/p bladder sling with mesh. Unsure of date. 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 S/p Cysto, L Ureteroscopy, stone extraction, stent placement 07/12/23 - grade III cystocele to level of introitus Exam today consistent with grade III cystocele to level of introitus. Pt still wishes to proceed with surgical mgmt of prolapse. Again discussed all options and offered referral to Dr. Schneider. Pt wishes to proceed with robotic sacrocolpopexy here locally. -Will schedule robotic sacrocolpopexy under general anes, risks discussed 2. Kidney stones (N20.0: Calculus of kidney) Previously seen by [facility] due to Kidney Stones. S/P Lt ESWL 03/05/09. KUB 03/18/23 - 3 clusters [...] up to 10 mm. Echogenic focus of midportionof left kidney, measures up to [address] AP wo con 11/29/24 [facility] - simple R renal cyst. 7 mm R renal calculus. Punctate left renal calculi. Small simple left renal cyst. 3. Frequency of urination (R35.0: Frequency of micturition) BBSQ 23 (20) PVR 07/24/24 - 14 mL. Prior note, pt having urinary frequency every 2-3 hours. Pt informed that cystocele likely contributing. Reports frequency and urgency also worse w/ kidney stones. Denies bothersome sxs today. Previously has declined medications. -Cont symptomatic monitoring 4. Vaginal atrophy (N95.2: Postmenopausal atrophic vaginitis) Patient still applying Estrogen cream. Denies bothersome SEs. 5. Renal cyst (N28.1: Cyst of kidney, acquired) RAFAEL 04/30/24 - stable 2.2 cm slightly complex right renal cyst. RAFAEL 10/15/24 - similar mildly complex right renal cyst, likely benign 6. Microscopic hematuria (R31.29: Other microscopic hematuria) UA today shows trace-intact blood. Will send for microscopy. 7. 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 Elevated risk of periop complications. Will need held prior to prolapse repair. Patient (more content not included)...TrihealthComment on above:Result Comment: Electronically Signed By: JASMIN MILLS MD\.br\Date and Time Signed: 12/16/24 12:06 EDT\.br\Electronically Co- Signed By: Sary Navarro.br\Date and Time Co-Signed: 12/16/24 12:03 EDT 12-16-2024 NotePatient Education Obstetrics and Gynecology Sacrocolpopexy Sacrocolpopexy is a surgical procedure to return the top part of the vagina (vaginal vault) to its normal position inside the pelvis. This procedure is done when the vaginal vault drops down into thelower vagina (vaginal prolapse). It repairs the condition and relieves its symptoms, which may include bowel or bladder problems and low back pain. You may need this procedure if your pelvic muscles have become weak after childbirth, or if you have had surgery to remove your uterus (hysterectomy). During the procedure, a surgeon may use a surgical mesh to lift and support your vagina. Tell a health care provider about: ??? Any allergies you have. ??? All medicines you are taking, including vitamins, herbs, eye drops, creams, and vwqt-hkw-gddlcgp medicines. ??? Any problems you or family members have had with anesthetic medicines. ??? Any blood disorders you have. ??? Any surgeries you have had. ??? Any medical conditions you have. ??? Whether you are or may be . What are the risks? Generally, this is a safe procedure. However, problems may occur, including: ??? The vaginal prolapse happening again after surgery. This is the most common problem. ??? Bleeding. ??? Vaginal pain. ??? Pain or reduced sensation during sexual intercourse. ??? Infection. ??? Loss of urinary or bowel control. ??? The surgical mesh moving or becoming unattached. ??? Having a blood clot that forms in your leg and travels to your lungs (pulmonary embolism). What happens before the procedure? Staying hydrated Follow instructions from your health care provider about hydration, which may include: ??? Up to 2 hours before the procedure ? you may continue to drink clear liquids, such as water, clear fruit juice, black coffee, and plain tea. Eating and drinking restrictions Follow instructions from your health care provider about eating and drinking, which may include: ??? 8 hours before the procedure ? stop eating heavy meals or foods, such as meat, fried foods, or fatty foods. ??? 6 hours before the procedure ? stop eating light meals or foods, such as toast or cereal. ??? 6 hours before the procedure ? stop drinking milk or drinks that contain milk. ??? 2 hours before the procedure ? stop drinking clear liquids. Medicines ??? Ask your health care provider about: ? Changing or stopping your regular medicines. This is especially important if you are taking diabetes medicines or blood thinners. ? Taking medicines such as aspirin and ibuprofen. These medicines can thin your blood. Do not take these medicines unless your health care provider tells you to take them. ? Taking mnan-zly-gvyydtn medicines, vitamins, herbs, and supplements. General instructions ??? Do not use any products that contain nicotine or tobacco for at least 4 weeks before the procedure. These products include cigarettes, chewing tobacco, and vaping devices, such as e-cigarettes. If you need help quitting, ask your health care provider. ??? You may need to follow a certain diet and take medicines to clean out your digestive system (bowel prep). ? Follow your health care provider's instructions. Bowel prep is done to make sure your bowel is empty for the procedure. It can also prevent constipation. ? You may need to start your bowel prep a few days before the procedure. ??? You may be required to use a vaginal cream to strengthen your vaginal tissues. Use it as told by your health care provider. ??? Ask your health care provider what steps will be taken to help prevent infection. These steps may include: ? Removing hair at the surgery site. ? Washing skin with a germ-killing soap. ? Taking antibiotic medicine. ??? Plan to have a responsible adult take you home from the hospital or clinic. What happens during the procedure? An IV will be inserted into one of your veins. ??? You will be given one or more of the following: ? A medicine to help you relax (sedative). ? A medicine to make you fall asleep (general anesthetic). ? A medicine that is injected into your spine to numb the area below and slightly above the injection site (spinal anesthetic). ? An antibiotic medicine to prevent infection. ??? A tube (catheter) will be inserted to drain your bladder. ??? Your surgeon will perform the surgery using one of the following methods: ? Open surgery. The surgery will be done through a small incision made in the skin on your lower abdomen. ? Laparoscopic surgery. The surgery will be done through several tiny incisions, using long instruments and a telescopic camera. In some cases, laparoscopic surgery will be done by remote control (robotic surgery). ??? Your surgeon will make one or more incisions and separate your vagina from your bowel and your bladder. ??? Your surgeon will push up the vaginal prolapse and attach a surgical mesh to your vagina. (more content not included)...[facility]04-29-2025 NotePatient Education Urology Kidney Stones Kidney stones are [...] these instructions at home: Medicines ??? Take ldyh-iji-jssuuiu and prescription medicines only as told by [...] Foundation (NKF): kidney.org ??? [facility] ([facility]): urologyhealth.org Contact a doctor if: ??? You [...] provider. Document Revised: 02/17/2023 Document Reviewed: 02/17/2023 [employer] Patient Education ? 2023 [employer].[facility] 08-27-2024 Hospital Discharge instructions Patient Education 08/27/2024 14:14:23 Steps to [...] health care provider if you have any questionsor concerns. How do I get ready to [...] require a prescription. You can also purchase shpx-zmr-tzsysdh medicines. Medicines may have nicotine in them [...] and encouragement. Call telephone quitlines, such as 4-831-SMNH-NOW, reach out to support groups, or work [...] provider. Document Revised: 06/17/2022 Document Reviewed: 06/17/2022 [employer] Patient Education 2023 [employer]. 08/27/2024 14:10:40 How to Use a Vaginal [...] take several appointments to find the best fitfor you. If you can be fit with [...] vagina. Follow these instructions at home: Take wqby-umd-dpbmpap and prescription medicines only as told by [...] provider. Document Revised: 12/24/2020 Document Reviewed: 12/24/2020 [employer] Patient Education 2023 [employer]. Follow Up Care 08/14/2024 09:26:00 With:JASMIN MILLS MD, JOCELYN Address: When: Unknown [facility] 02-18-2025 NotePatient Education Obstetrics and Gynecology How to Use [...] take several appointments to find the best fitfor you. If you can be fit with [...] vagina. You can remove the pessary every nightor after several days. You can also remove it to have sex. How to care for your pessary If you have a pessary that you can remove: ??? Clean your pessary with soap and water. Rinse well. ??? Dry it completely before inserting it back into your vagina. Follow these instructions at home: ??? Take fjax-bfj-zdwsrji and prescription medicines only as told by [...] provider. Document Revised: 12/24/2020 Document Reviewed: 12/24/2020 [employer] Patient Education ? 2023 [employer] Pulmonary Medicine Steps to Quit Smoking [...] care provider if you (more content not included)...[facility]01-29-2025 Miscellaneous Notes* Telephone Encounter - Concepción Murphy RN - 08/07/2024 8:48 AM EST Surgeon: Dr. Elizabeth Lott Type of surgery: Rt ESWL for kidney stones Date of surgery: 10/02/24 Surgery location: [facility] Type of anesthesia: General On a blood thinner?: N/A On an antiplatelet?: ASA Plavix- Would like to hold both for 5-7 days Had CARRILLO to [facility] 01/2023 Date of last EK07/01/24 History of CVA/TIA, DVT/PE? None known Last saw Dr. Andrea 07/01/24 * Telephone Encounter - Joey Andrea MD - 08/07/2024 8:48 AM EST Noted. Moderate risk, risk non prohibitive. Can discontinue aspirin indefinitely. Hold Plavix for 5-7 days prior to procedure and resume when cleared afterwards. Thank you * Telephone Encounter - Concepción Murphy RN - 08/07/2024 8:48 AM EST Note created and faxed documented in this encounterTrumbull Regional Medical CenterPlay for Job [id number] Telephone encounter Note* Telephone Encounter - Concepción Murphy RN - 08/07/2024 8:48 AM EST Surgeon: Dr. Elizabeth Lott Type of surgery: Rt ESWL for kidney stones Date of surgery: 10/02/24 Surgery location: [facility] Type of anesthesia: General On a blood thinner?: N/A On an antiplatelet?: ASA Plavix- Would like to hold both for 5-7 days Had CARRILLO to [facility] 01/2023 Date of last EK07/01/24 History of CVA/TIA, DVT/PE? None known Last [facility] Dr. Andrea [facility] Telephone encounter Note* Telephone Encounter - Joey Andrea MD - 08/07/2024 8:48 AM EST Noted. Moderate risk, risk non prohibitive. Can discontinue aspirin indefinitely. Hold Plavix for 5-7 days prior to procedure and resume when cleared afterwards. Thank you [employer]01-29-2025 Telephone encounter Note* Telephone Encounter - Concepción Murphy RN - 08/07/2024 8:48 AM EST Note created and faxed [facility] Zocere [id number] NoteHNO ID: [id number] Author: MICAELA MONROY MD Service: ? Author [...] with more than 50% of the total zvqp-qt-wcgz time of the visit in counseling / coordination of care.[facility]01-27-2025 History of Present illness Narrative* Micaela Monroy MD - 08/05/2024 11:27 AM EST Consultation requested by Dr. Fernando Castellon for [...] with more than 50% of the total skvl-bm-fwgs time of the visit in counseling / coordination of care. [facility] Evaluation note* Diagnosis Onset Date Resolution Status Admit Date GERD (gastroesophageal reflu x disease) acute July 30 3:30pm Irritable bowel syndrome wit h diarrhea acute July 30 3:30pm Nausea acute July 30, 2024 3:30pm Diarrhea acute September 10 3:00pm Sliding hiatal hernia acute [facility] 2024 3:00pm [facility] Work Phone: [phone] 174-843601-21-2025 Evaluation note* Diagnosis Onset Date Resolution Status Admit Date GERD (gastroesophageal reflu x disease) acute July 30 3:30pm Irritable bowel syndrome wit h diarrhea acute July 30 3:30pm Nausea acute July 30, 2024 3:30pm GERD (gastroesophageal reflu x disease) acute September 10, 2024 3:00pm Sliding hiatal hernia acute Mar 2024 3:00pm [facility] Work Phone: 1(293) 214-813001-15-2025 Hospital Discharge instructions Patient Education 07/24/2024 09:48:55 [...] include: ?8 oz (237 mL) of milk, auwvnez-rkcudxelrtfe-zraat milk, and calcium- fortifiedfruit juice. Calcium-fortified means [...] ?Spinach (cooked), rhubarb, beets, sweet potatoes, and Beninese chard. ?Peanuts. ?Potato chips, tanzanian fries, and baked potatoes with skin on. ?Nuts and nut products. ?Chocolate. If you regularly take a diuretic medicine, make sure to eat at least 1 or 2 servings of fruits or vegetables that are high in potassium each day. These include: ?Avocado. ?Banana. ?[place], prune, carrot, or tomato juice. ?Baked potato. [...] magnesium, fish oil, or vitamin B6. Take soif-cic-vxlcxky and prescription medicines only as told by [...] Casseroles. Pizza. Lasagna. Frozen meals. Potato chips. Northern Irish fries. The items listed above may not [...] provider. Document Revised: 10/06/2022 Document Reviewed: 10/06/2022 [employer] Patient Education 2023 [employer]. Follow Up Care 04/24/2024 16:03:36 With:Oren BOB, JOCELYN Temple, URO Address: When: Unknown Comments:Schedule ESWL [facility] [place] 01-15-2025 NotePatient Education Nephrology Dietary Guidelines to [...] ? 8 oz (237 mL) of milk, rwpomif-ajwmjcfivkqg-xjgel milk, and calcium- fortifiedfruit juice. Calcium-fortified means [...] Spinach (cooked), rhubarb, beets, sweet potatoes, and Beninese chard. ? Peanuts. ? Potato chips, tanzanian fries, and baked potatoes with skin on. ? Nuts and nut products. ? Chocolate. ??? If you regularly take a diuretic medicine, make sure to eat at least 1 or 2 servings of fruits or vegetables that are high in potassium each day. These include: ? Avocado. ? Banana. ? [place], prune, carrot, or tomato juice. ? Baked [...] fish oil, or vitamin B6. ??? Take enpp-umb-vlnwsib and prescription medicines only as told by your health (more content not included)...[facility]12-23-2024 History of Present illness Narrative* Joey Andrea MD - 07/01/2024 12:00 PM EST Sly Coy Date of visit: 07/01/2024 Date of : 1955 Age: 68 y.o. Patient Active Problem List Diagnosis Mineral metabolism disorder Hematuria, gross Nephrolithiasis Renal cyst Chest pain Dizziness Coronary artery disease of [place] artery of [place] heart with stable angina pectoris ([facility]) Presence of drug-eluting stent in right [...] 12/24/2020 Performed by Tyler Wesley MD at [facility] DILATION AND CURETTAGE OF UTERUS ESOPHAGOGASTRODUODENOSCOPY ESOPHAGOGASTRODUODENOSCOPY 12/20/2022 ESOPHAGOGASTRODUODENOSCOPY N/A 12/24/2020 Performed by Tyler Wesley MD at [facility] HYSTERECTOMY 01/15/2018 LASER ABLATION uterine LITHOTRIPSY [...] pain CAD s/p CARRILLO to RCA at [facility] 01/2023 Normal EF TTE 04/2022 and SPECT [...] in about 6 months (around 12/30/2024). PCP: [facility] Edith Referring Physician: Nadira Subramanian, WEEKEND RECEPTIONIST-BOTTLED BEVERAGE INSPECTOR [address] [place] [address] documented in this encounterTrumbull Regional Medical CenterVotigo Karmanos Cancer [id number] Instructions* Patient Instructions* Suzette Haskins CMA - 07/01/2024 12:00 PM EST Are You Ready To Kick The Habit? Free Tobacco Cessation Resources [facility] Tobacco [facility] Center Services [facility] Tobacco Treatment Centers provide all employees with free tobacco cessation services that include: Counseling to understand nicotine addiction Education about medications that can help you successfully quit Assistance with developing a plan to quit Call to set up an individual appointment or find out when group classes will be held: [facility]: [phone] [facility]: [phone] [facility]: [phone] [facility]: [phone] Quit Smoking Action Plan and Resources [facility] offers an eight-week, online smoking cessation plan to all [facility] employees, regardless of whether [employer] is your medical insurance provider. Go to www.Senior Moments.[employer]/employeewellness and click the Health Risk Assessment and Resources link to get started. In the Cpmsp9Jgfgab menu, click Action Plans instead of Health Risk Assessment to access the Quit Smoking Action Plan. Additional smoking cessation resources are also available to all [facility] employees on the Wqiem7Mpbqak web page at www.Servoy/quitsmoking. [facility] Tobacco Cessation [facility] If [employer] is your medical insurance provider, there are more free resources available to you, including: No copays or deductibles on local tobacco cessation counseling services to help you quit Prescription assistance for tobacco cessation medications to help you quit For details about the tobacco cessation program available to [employer] members, go to www.Servoy (Search: Tobacco Cessation Program). [place] Tobacco Quit Line 6-629-JWUD-NOW ( ) is a toll-free, telephonic service that helps [place] residents quit smoking and using tobacco. It is staffed by experts who tailor a quit plan for you and provide you with advice. [place] Tobacco Quit Line 7-860-UUEI-NOW ( ) is a toll-free, telephonic service that helps [place] residents quit smoking and using tobacco. It is staffed by experts who tailor a quit plan for you and provide you with advice. Two weeks of nicotine replacement therapy may be provided at no charge, if needed. Additional Resources These national organizations also offer free information and resources to help you quit tobacco: [place] [employer]--www.cancer.org/healthy/stayawayfromtobacco [place] [employer]--www.heart.org (Search: Quit Smoking) Centers for Disease Control and Prevention--www.cdc.gov/tobacco [place] [employer] Association--www.lungusa.org documented in this encounterNortheastern Vermont [facility] HospitalBeth[facility]12-[facility]-2024 Miscellaneous Notes* Telephone Encounter - Clover Wyman CMA - 06/28/2024 9:23 AM EST Called patient to remind them to bring their most current copy of their medication list with them to their appt. Patient verbalizes understanding. documented [facility]12-[facility]24 Telephone encounter Note* Telephone Encounter - Clover Wyman CMA - 06/28/2024 9:23 AM EST Called patient to remind them to bring their most current copy of their medication list with them to their appt. Patient verbalizes understanding. [facility]11-22-2024 Telephone encounter Note* Telephone Encounter - Compa Tavares - 05/31/2024 4:00 PM EST For documentation purpose- Left a detail message for the patient to schedule an appointment with Dr. Monroy (40 mins slot). Referral from [facility]. Thank you [facility]11-22-2024 Miscellaneous Notes* Telephone Encounter - Compa Tavares - 05/31/2024 4:00 PM EST For documentation purpose- Left a detail message for the patient to schedule an appointment with Dr. Monroy (40 mins slot). Referral from [facility]. Thank you documented in this encounterBellevue Hospital11-21-2024 Evaluation note* Diagnosis Onset Date Resolution [...] 3:30pm Nausea acute July 30, 2024 3:30pm [facility] Work Phone: 1(803) 637-287808-27-2024 Evaluation note* Diagnosis Onset Date Resolution Status Admit Date Dyspepsia acute March 05, 2 024 2:54pm GERD (gastroesophageal reflu x disease) acute March 05 2:54pm Sliding hiatal hernia acute Feb ust 2023 2:54pm Diarrhea acute May 30, 2024 9:21am GERD (gastroesophageal reflu x disease) acute May 30, 2 024 9:21am [facility] Work Phone: 1(600) 723-374807-25-2024 Miscellaneous Notes* Telephone Encounter - Chelsey Biggs RN - 02/01/2024 1:35 PM EDT OV-06/19/2023 [facility]-02/10/2023 Letter sent via mail for reminder of labs and appointment documented in this encounterSelect Medical [facility], [facility]07-25-2024 Telephone encounter Note* Telephone Encounter - Chelsey Biggs RN - 02/01/2024 1:35 PM EDT OV-06/19/2023 [facility]-02/10/2023 Letter sent via mail for reminder of labs and appointment [facility]06-25-2024 Evaluation note* Author Himanshu Borjas [facility] Authored January 02, 2024 2:23 pm Patient is positive for dysp epsia, patient notes dysphagia, epigastric pain, globus sensation and daily nausea Patient is also positive for abdominal pain [facility] Work Phone: 1(670) 214-587406-25-2024 Hospital Discharge instructionsAmbulatory Orders* Referral to Gastroenterology Time Frame: 01/02/24, Location: None Selected [facility] Work Phone: 1(871) 809-328902-01-2024 Hospital Discharge instructions Follow Up Care 08/10/2023 14:01:54 With:Oren BOB, MARK TempleL, URO Address: [address], [place] [phone] When: Unknown [facility] [place] 01-15-2024 Hospital Discharge instructions Patient Education 07/24/2023 [...] include: ?8 oz (237 mL) of milk, vfcclhy-sermcuuoiybz-aoqwn milk, and calcium- fortifiedfruit juice. Calcium-fortified means [...] ?Spinach (cooked), rhubarb, beets, sweet potatoes, and Beninese chard. ?Peanuts. ?Potato chips, tanzanian fries, and baked potatoes with skin on. ?Nuts and nut products. ?Chocolate. If you regularly take a diuretic medicine, make sure to eat at least 1 or 2 servings of fruits or vegetables that are high in potassium each day. These include: ?Avocado. ?Banana. ?[place], prune, carrot, or tomato juice. ?Baked potato. [...] magnesium, fish oil, or vitamin B6. Take edwp-efc-xpljbpv and prescription medicines only as told by [...] Casseroles. Pizza. Lasagna. Frozen meals. Potato chips. Northern Irish fries. The items listed above may not [...] provider. Document Revised: 10/06/2022 Document Reviewed: 10/06/2022 [employer] Patient Education 2022 [employer]. Follow Up Care 07/13/2023 14:28:20 With:Elizabeth Lott Address: [address] [place] [phone] Business (1) [facility] [address] [address] [phone] Business (1) When: Unknown Comments:Obtain renal US in 6 weeks at [facility]. Office to call with results. If no hydronephrosis, office will call to schedule follow up in 6 months with KUB and renal US [facility]12-27-2023 Miscellaneous Notes* Telephone Encounter - Cristine Rodriguez RN - 07/05/2023 5:30 PM EST Ov 06/19/23 documented in this encounterTrumbull Regional Medical CenterApplied [facility]12-27-2023 Telephone encounter Note* Telephone Encounter - Cristine Rodriguez RN - 07/05/2023 5:30 PM EST Ov 06/19/23 [facility]-01-2023 Hospital Discharge instructions Patient Education 05/10/2023 10:27:19 [...] include: ?8 oz (237 mL) of milk, czfgfuv-amvztibuysrs-fdgze milk, and calcium- fortifiedfruit juice. Calcium-fortified means [...] ?Spinach (cooked), rhubarb, beets, sweet potatoes, and Beninese chard. ?Peanuts. ?Potato chips, tanzanian fries, and baked potatoes with skin on. ?Nuts and nut products. ?Chocolate. If you regularly take a diuretic medicine, make sure to eat at least 1 or 2 servings of fruits or vegetables that are high in potassium each day. These include: ?Avocado. ?Banana. ?[place], prune, carrot, or tomato juice. ?Baked potato. [...] magnesium, fish oil, or vitamin B6. Take rbwj-kfl-ecbuepq and prescription medicines only as told by [...] Casseroles. Pizza. Lasagna. Frozen meals. Potato chips. Northern Irish fries. The items listed above may not [...] provider. Document Revised: 03/07/2022 Document Reviewed: 03/07/2022 [employer] Patient Education 2022 [employer]. Follow Up Care 02/01/2023 14:06:36 With:Oren BOB, JOCELYN Temple, URO Address: When: Unknown Comments:Sched Lt ESWL[facility] Evaluation note* Encounter Date Diagnosis Assessment Notes Treatment Notes Treatment Clinical Notes Feb, Hiatal hernia (ICD-10 - K44.9) Pt is taking omeprazole. Pt states this medication is working for her. Pt states she still some times gets acid reflux, but overall, she is doing well. Pt RTO in 6 months Feb, Esophageal stricture (ICD-10 - K22.2) [employer] Other 05-09-2023 Evaluation note* Encounter Date Diagnosis Assessment Notes Treatment Notes Treatment Clinical Notes November, GERD (gastroesophageal reflux disease) (ICD-10 - K21.9) we will obtain a records release to get records from [facility] It is recommened that patient get EGD and she argees to have this done Patient has family history of esophageal cancer November, Family history of esophageal cancer (ICD-10 - Z80.0) [employer] Other Evaluation + Plan note No data available for this section [facility] evaluation + Plan note Future Appointments Appointment Date:01/30/2024 08:00:00 AM Scheduled Provider:Albania Chow Location:[facility] Appointment Type:URO Office Visit [facility] evaluation + Plan note Future Appointments Appointment Date:12/23/2024 10:30:00 AM Scheduled Provider: Location:[facility] Appointment Type:Surgical PAT FT Appointment Date:01/07/2025 08:30:00 AM Scheduled Provider: Location:[facility] Appointment Type:Surgery FT [facility] Evaluation + Plan note Future Appointments Appointment Date:01/07/2025 08:30:00 AM Scheduled Provider: Location:[facility] Appointment Type:Surgery FT [facility] Evaluation + Plan note Future Appointments Appointment Date:04/28/2025 11:00:00 AM Scheduled Provider:JASMIN MILLS MD Location:[facility] Appointment Type:URO Office Visit [facility] evalulskml note* Diagnosis Chest pain, unspecified type Dizziness Dizziness and giddiness Abnormal stress ECG Other nonspecific abnormal cardiovascular system function study documented in this encounter [facility] Work Phone: evalfvzntf note* Diagnosis Onset Date Resolution Status Hiatal hernia acute [facility] Work Phone: evaluation note* Author Himanshu Borjas [facility] Authored January 02, 2024 2:23 pm Patient is positive for dysp epsia, patient notes dysphagia, epigastric pain, globus sensation and daily nausea Patient is also positive for abdominal pain [facility] Work Phone: evaluation note* Diagnosis Hematuria- [...] Tobacco use disorder documented in this encounter [facility]* Diagnosis Hiatal hernia- Primary Diaphragmatic hernia without mention of obstruction or gangrene documented in this encounter [facility]* Diagnosis Medication management- Primary documented in this encounter [facility]* Diagnosis Hematuria- Primary Hematuria, unspecified Hematuria, [...] of right coronary artery stent placement- Primary Coronary artery disease of [place] artery of [place] heart with stable angina pectoris Hypertensive heart disease without heart failure Unspecified hypertensive heart disease without heart failure Presence of drug-eluting stent in right coronary artery Mixed hyperlipidemia documented in this encounter [facility] IncHistory general Narrative - Reported* Type Description Date Medical History kidney stones Medical History hypertension Medical History gastritis Medical History Hiatal hernia Surgical History kidney stone Surgical History fx nose Surgical History ablasion Surgical History tubal ligation [employer] Other History general Narrative - Reported* Type Description Date Medical History kidney stones Medical History hypertension Medical History gastritis Medical History Hiatal hernia Surgical History kidney stone Surgical History fx nose Surgical History ablasion Surgical History tubal ligation Hospitalization History Heart procedure [employer] Other Hospital Discharge instructions No data available for this section [facility] Discharge instructionsAmbulatory Orders* Referral to General Surgery Time Frame: 05/30/24, Location: None [facility] Work Phone: InstructionsNot on filedocumented in this encounter [facility] SystemInstructionsNot on filedocumented in this encounter [facility] SystemInstructionsNot on filedocumented in this encounter [facility] SystemInstructionsNot on filedocumented in this encounter [facility] SystemProgress note No data available for this section [facility] [place] Reason for Referral Specialty Diagnoses / Procedures Referred By Milton t Referred To Contact Radiology Diagnoses Chest pain, unspecified type Dizziness Abnormal stress ECG R07.9 (ICD-10-CM) - Chest pain, unspecified type Procedures CTA CORON EJECT FRAC WALL MOTION CHG CT ANGIO HRT CORNRY ART/BYPASS GRFTS CONTRST 3D POST [id number] - CHG CT ANGIO HRT CORNRY ART/BYPASS GRFTS CONTRST 3D POST Chanel Modi MD [address] [place] [address] Referral ID Status Reason Start Date Expiration Date V isits Requested Visits Authorized [id number] Authorized 06/21/2022 05/07/2023 1 1 Summary Purpose [...] 3 :30pm GERD (gastroesophageal reflux disease) M arch 2024 3:00pm Sliding hiatal hernia September 10, [...] HRT CORNRY ART/BYPASS GRFTS CONTRST 3D POST [id number] - CHG CT ANGIO HRT CORNRY ART/BYPASS GRFTS CONTRST 3D POST Chanel Modi MD [address] [place] [address] Referral ID Status Reason Start Date Expiration Date V isits Requested Visits Authorized [id number] Authorized 06/21/2022 05/07/2023 1 1 Reason Comments Follow-up EST PT LS 06/19/23 H M. 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 Relationship Specialty Start Date End Date Best Subramaniana, WEEKEND RECEPTIONIST - BOTTLED BEVERAGE INSPECTOR [address] [place] [address] PCP - General Certified Nurse Practitioner 06/17/22 Team Status: Active Member Role Status Dates Nadira Subramanian APRN THERAPEUTIC SUPPORT STAFF-C Primary Care Provider Active Team Status: Inactive Member Role Status Dates Nadira Subramanian APRN THERAPEUTIC SUPPORT STAFF-C Primary Care Provider Active Start: October 26, 2023 End: October 26, 2023 Himanshu Borjas APRN Attending Provider Active Start: October 26, 2023 End: October 26, 2023 Team Status: Inactive Member Role Status Dates Nadira Subramanian APRN THERAPEUTIC SUPPORT STAFF-C Primary Care Provider Active Start: November 14, 2023 End: November 14, 2023 Himanshu Borjas APRN Attending Provider Active Start: November 14, 2023 End: November 14, 2023 Team Status: Inactive Member Role Status Dates Nadira Subramanian APRN THERAPEUTIC SUPPORT STAFF-C Primary Care Provider Active Start: January 02, 2024 End: January 02, 2024 Himanshu Borjas APRN Attending Provider Active Start: January 02, 2024 End: January 02, 2024 Team Status: Inactive Member Role Status Dates Nadira Subramanian APRN THERAPEUTIC SUPPORT STAFF-C Primary Care Provider Active Start: January 16, 2024 End: January 16, 2024 Himanshu Borjas APRN Attending Provider Active Start: January 16, 2024 End: January 16, 2024 Team Status: Inactive Member Role Status Dates Nadira Subramanian APRN THERAPEUTIC SUPPORT STAFF-C Primary Care Provider Active Start: March 05, 2024 End: March 05, 2024 Himanshu Borjas APRN Attending Provider Active Start: March 05, 2024 End: March 05, 2024 Team Status: Inactive Member Role Status Dates Nadira Subramanian APRN THERAPEUTIC SUPPORT STAFF-C Primary Care Provider Active Start: May 30, 2024 End: May 30, 2024 Himanshu Borjas APRN Attending Provider Active Start: May 30, 2024 End: May 30, 2024 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 Relationship Specialty Start Date End Date Rafael Waldron MD [facility] [place] [id number] PCP - General Internal Medicine 10/03/14 Himanshu Borjas CNP [address] [place] [id number] Family Medicine 01/10/24 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 Relationship Specialty Start Date End Date Nadira Subramanian APRN-BOTTLED BEVERAGE INSPECTOR [address] [facility] [place] [address] PCP - General Family Medicine 11/23/20 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 Relationship Specialty Start Date End Date [facility] [address] [place], [place] PCP - General Family Medicine 07/01/24 [...] July 30, 2024 End: July 30, 2024 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 Relationship Specialty Start Date End Date Rafael Waldron MD [address] [place], [place] [address] [place] [address] PCP - General Internal Medicine 10/03/14 Himanshu Borjas CNP [address] [place] [address] Family Medicine 01/10/24 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 Relationship Specialty Start Date End Date [facility] [address] [place], [place] PCP - General Family Medicine 07/01/24 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 Relationship Specialty Start Date End Date Best Subramaniana NylaMYRONN-BOTTLED BEVERAGE INSPECTOR [address] [place] [address] PCP - General Family Medicine 11/23/20 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 Relationship Specialty Start Date End Date Best Subramaniannyla Redmond WEEKEND RECEPTIONIST-BOTTLED BEVERAGE INSPECTOR [address] [place] [address] PCP - General Family Medicine 11/23/20 Team Status: Inactive Member Role Status Dates NON STAFF Primary Care Provider Active Start: September 10, 2024 End: September 10, 2024 Himanshu Borjas APRN Attending Provider Active Start: September 10, 2024 End: September 10, 2024 Team Status: Inactive Member Role Status Dates Elizabeth Lott MD Attending Provider Active Start : September 20, 2024 End: September 20, 2024 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 Relationship Specialty Start Date End Date Services, [facility] [address] [place], [place] PCP - General Family Medicine 07/01/24 INFORMATION SOURCE (unrecogn ized section and content) DATE CREATED AUTHOR 06/30/2022 [facility] DATE CREATED AUTHOR AUTHOR'S ORGANIZ ATION 10/06/2022 [facility] DATE CREATED AUTHOR AUTHOR'S ORGANIZ ATION 01/23/2023 [facility] DATE CREATED AUTHOR AUTHOR'S ORGANIZ ATION 08/07/[address] [facility] DATE CREATED AUTHOR AUTHOR'S ORGANIZ ATION 09/24/2024 [facility] DATE CREATED AUTHOR AUTHOR'S ORGANIZ ATION 12/25/2024 [facility] DATE CREATED AUTHOR AUTHOR'S ORGANIZ ATION 01/01/2025 [facility] DATE CREATED AUTHOR AUTHOR'S ORGANIZ ATION 01/08/2025 [facility] DATE CREATED AUTHOR AUTHOR'S ORGANIZ ATION 01/28/2025 [facility] Goals (unrecognized section and content) Goals may be documented in a n alternate section Source Comments (unrecognize d section and content) In the event this informatio n is protected by the Federal Confidentiality of Alcohol and Drug Abuse Patient Records regulations: The Federal rules restrict any use of the information to criminally investigate or prosecute any alcohol or drug abuse patient.[facility] the event this information is protected by the Federal Confidentiality of Alcohol and Drug Abuse Patient Records regulations: The Federal rules restrict any use of the information to criminally investigate or prosecute any alcohol or drug abuse patient.[facility] FOR RECORDS PERTAINING TO PATIENTS WHO [...] BE BASED ON THE PRIMARY CLINICAL RECORDS. [facility]. provides no warranty or guarantee of the accuracy or completeness of information in this document.
[2025-03-14] VITALS (15 sets, daily range): BP systolic 116–165; BP diastolic 43–73; PULSE 76–87; TEMP 36.9; O2SAT 96–100; BMI 23.6
--- NOTE | 2025-03-14 00:17 | XR_ITS ---
The [address] [address] Patient Name: SLY COY MRN: [id number] date: 1955 Sex: F Assigned Patient Location: ER Current Patient Location: Accession/Order Number: [id number] Exam Date: 03/14/2025 00:25 Report Date: 03/14/2025 08:40 At the request of: SLICK HAND MD Procedure: XR tibia fibula LT 2V XR tibia fibula LT 2V 03/14/2025 12:45 AM SIGNS AND SYMPTOMS: ^fall, injury to prox fibula PROTOCOL: Frontal and lateral radiographs of the left tibia and fibula COMPARISON: None FINDINGS: The bones are in anatomic alignment. There is no evidence of fracture or dislocation. No significant soft tissue swelling. Visualized right knee and right ankle are grossly intact. There is spurring. XR/XR tibia fibula LT 2V IMPRESSION: No acute displaced fracture. Impression dictated by: Arnoldo Souza M.D. 03/14/2025 8:40 AM Dictation Location: [place] [address] Electronically authenticated by: [id number] Date: 03/14/2025 08:40
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
[2025-03-14] MEDS: ACETAMINOPHEN 325 MG TABLET 650 MG PO (00:45)
[2025-03-14] MEDS: ONDANSETRON 4 MG RAPDIS TABLET SL (00:45)
--- NOTE | 2025-03-14 01:44 | PC.NURSE ---
this patient lying on her right side sleeping, this patient voices her headache is at 6/10. i informed this patient we are still waiting on your ct results. this patient voices no concerns, needs and shows no signs of distress
[2025-03-14] MEDS: BACITRACIN 0.9 GM PACKET 1 PACKET TOPICAL (02:19)
--- NOTE | 2025-03-14 02:21 | PC.NURSE ---
i walked into this patient's room to find this patient sleeping, i called this patient's name and she woke up. i informed her that i had her discharge orders. i applied medication and then a band aid to her left lower leg. i gave this patient verbal and written discharge orders and this patient voices yes to understanding these discharge orders. at time of discharge this patient voices no concerns, needs and shows no signs of distress
== END 2025-03-14 02:20 | disposition home or self-care (01) ==
PROVIDERS: Emergency Provider Emergency Medicine
DX: S09.90XA Unspecified injury of head, initial encounter (principal); S16.1XXA Strain of muscle, fascia and tendon at neck level, initial encounter; Z79.02 Long term (current) use of antithrombotics/antiplatelets; Z95.5 Presence of coronary angioplasty implant and graft; S81.812A Laceration without foreign body, left lower leg, initial encounter; W18.39XA Other fall on same level, initial encounter; Y93.K1 Activity, walking an animal; Z98.51 Tubal ligation status; Z90.710 Acquired absence of both cervix and uterus; F17.210 Nicotine dependence, cigarettes, uncomplicated
CPT/HCPCS: 70450; 72125; 73590; 76376; 99284; Q0162